=== PATIENT | male | born 1940 | race Caucasian/White ===

== ENCOUNTER → 2017-02-09 | Outpatient (REF) | payer MEDICARE ==
[2017-02-09 18:18] LABS: MEAN CORPUSCULAR HEMOGLOBIN 31.7 pg (27.0-33.0); MEAN CORPUSCULAR HGB CONC 33.8 g/dl (32.0-36.5); MEAN CORPUSCULAR VOLUME 93.8 fl (80.0-96.0); RED CELL DISTRIBUTION WIDTH 12.3 % (11.5-14.5); WHITE BLOOD COUNT 7.4 K/mm3 (4.0-10.0)
[2017-02-09 20:10] LABS: ALBUMIN 4.1 GM/DL (3.2-5.2); ALBUMIN/GLOBULIN RATIO 1.17 (1.00-1.93); ALKALINE PHOSPHATASE 73 U/L (45-117); ALT/SGPT 28 U/L (12-78); ANION GAP 8 MEQ/L (8-16); AST/SGOT 20 U/L (15-37); BLOOD UREA NITROGEN 13 MG/DL (7-18); CALCIUM LEVEL 9.3 MG/DL (8.8-10.2); CARBON DIOXIDE LEVEL 33 MEQ/L (21-32); CHLORIDE LEVEL 96 MEQ/L (98-107); CREATININE FOR GFR 0.98 MG/DL (0.70-1.30); GLOMERULAR FILTRATION RATE > 60.0 (>42); GLUCOSE, FASTING 94 MG/DL (83-110); POTASSIUM SERUM 3.9 MEQ/L (3.5-5.1); SODIUM LEVEL 137 MEQ/L (136-145); TOTAL PROTEIN 7.6 GM/DL (6.4-8.2)
== END ==
LOC: M SFHCCLAY 11:13
PROVIDERS: ATTEND Family Medicine
DX: Z93.2 Ileostomy status (principal); C18.9 Malignant neoplasm of colon, unspecified

== ENCOUNTER → 2018-02-10 | Outpatient (REF) | payer MEDICARE ==
[2018-02-10 19:30] LABS: ALBUMIN/GLOBULIN RATIO 1.25 (1.00-1.93); ALKALINE PHOSPHATASE 71 U/L (45-117); ALT/SGPT 25 U/L (12-78); ANION GAP 10 MEQ/L (8-16); AST/SGOT 22 U/L (7-37); BILIRUBIN,TOTAL 1.3 MG/DL (0.2-1.0); BLOOD UREA NITROGEN 15 MG/DL (7-18); CALCIUM LEVEL 9.7 MG/DL (8.8-10.2); CARBON DIOXIDE LEVEL 31 MEQ/L (21-32); CHLORIDE LEVEL 98 MEQ/L (98-107); CREATININE FOR GFR 1.02 MG/DL (0.70-1.30); GLOMERULAR FILTRATION RATE > 60.0 (>42); GLUCOSE, FASTING 91 MG/DL (70-100); POTASSIUM SERUM 3.9 MEQ/L (3.5-5.1); SODIUM LEVEL 139 MEQ/L (136-145); THYROID STIMULATING HORMONE 0.817 uIU/ML (0.358-3.740); TOTAL PROTEIN 7.2 GM/DL (6.4-8.2)
[2018-02-10 19:46] LABS: HEMATOCRIT 40.5 % (42.0-52.0); HEMOGLOBIN 13.4 g/dl (13.5-17.5); MEAN CORPUSCULAR HGB CONC 33.1 g/dl (32.0-36.5); MEAN CORPUSCULAR VOLUME 93.8 fl (80.0-96.0); PLATELET COUNT, AUTOMATED 218 10^3/uL (150-450); RED BLOOD COUNT 4.32 10^6/uL (4.30-6.10); RED CELL DISTRIBUTION WIDTH 12.2 % (11.5-14.5); WHITE BLOOD COUNT 7.4 10^3/uL (4.0-10.0)
[2018-02-10 21:31] LABS: ALPHA FETOPROTEIN TUMOR QUANT 3.1 NG/ML (<8.1); CARCINOEMBRYONIC ANTIGEN 1.9 NG/ML (<2.5)
[2018-02-12 08:45] LABS: HCG SERUM TUMOR MARKER QUANT < 1 mIU/mL (0-3)
== END ==
LOC: M SFHCCLAY 11:09
DX: Z93.2 Ileostomy status (principal); Z12.5 Encounter for screening for malignant neoplasm of prostate; I10 Essential (primary) hypertension; N50.9 Disorder of male genital organs, unspecified; H91.93 Unspecified hearing loss, bilateral; Z85.038 Personal history of other malignant neoplasm of large intestine; Z23 Encounter for immunization
CPT/HCPCS: 82378

== ENCOUNTER → 2018-02-21 | Outpatient (CLI) | payer MEDICARE ==
[2018-02-21 19:14] LABS: ANION GAP 9 MEQ/L (8-16); BLOOD UREA NITROGEN 16 MG/DL (7-18); CARBON DIOXIDE LEVEL 31 MEQ/L (21-32); CHLORIDE LEVEL 97 MEQ/L (98-107); CREATININE FOR GFR 1.11 MG/DL (0.70-1.30); GLOMERULAR FILTRATION RATE > 60.0 (>42); GLUCOSE, FASTING 104 MG/DL (70-100); LDH LACTATE DEHYDROGENASE 207 U/L (87-241); POTASSIUM SERUM 4.4 MEQ/L (3.5-5.1); SODIUM LEVEL 137 MEQ/L (136-145)
== END ==
LOC: M SMT 14:15
DX: N50.9 Disorder of male genital organs, unspecified (principal)
CPT/HCPCS: 83615

== ENCOUNTER → 2018-02-23 | Outpatient (CLI) | payer MEDICARE ==
[~2018-02-23] MED LIST: GASTROGRAFIN SOLUTION 30ML (Q9963) As Ordered; ISOVUE-370 76% 100ML VIAL (Q9967) As Ordered
== END ==
LOC: M RAD 15:38
DX: N50.9 Disorder of male genital organs, unspecified (principal); I70.0 Atherosclerosis of aorta; Z90.49 Acquired absence of other specified parts of digestive tract; Z93.2 Ileostomy status; R59.0 Localized enlarged lymph nodes
CPT/HCPCS: Q9963

== ENCOUNTER → 2018-02-24 | Outpatient (REF) | payer MEDICARE ==
[2018-02-24 17:13] LABS: HEMOGLOBIN 13.8 g/dl (13.5-17.5); MEAN CORPUSCULAR HEMOGLOBIN 31.7 pg (27.0-33.0); MEAN CORPUSCULAR HGB CONC 34.5 g/dl (32.0-36.5); MEAN CORPUSCULAR VOLUME 91.7 fl (80.0-96.0); PLATELET COUNT, AUTOMATED 231 10^3/uL (150-450); RED BLOOD COUNT 4.36 10^6/uL (4.30-6.10); RED CELL DISTRIBUTION WIDTH 11.9 % (11.5-14.5); WHITE BLOOD COUNT 7.5 10^3/uL (4.0-10.0)
[2018-02-24 17:14] LABS: ANION GAP 6 MEQ/L (8-16); BLOOD UREA NITROGEN 17 MG/DL (7-18); CALCIUM LEVEL 9.5 MG/DL (8.8-10.2); CARBON DIOXIDE LEVEL 35 MEQ/L (21-32); CHLORIDE LEVEL 98 MEQ/L (98-107); CREATININE FOR GFR 1.11 MG/DL (0.70-1.30); GLOMERULAR FILTRATION RATE > 60.0 (>42); GLUCOSE, FASTING 48 MG/DL (70-100); POTASSIUM SERUM 3.9 MEQ/L (3.5-5.1); SODIUM LEVEL 139 MEQ/L (136-145)
[2018-02-24 17:30] LABS: INR 1.04; PROTHROMBIN TIME 13.7 SECONDS (12.1-14.4)
[2018-02-24 17:31] LABS: PARTIAL THROMBOPLASTIN TIME 33.5 SECONDS (25.4-37.6)
== END ==
LOC: M SFHCCLAY 11:13
DX: Z01.818 Encounter for other preprocedural examination (principal); N50.9 Disorder of male genital organs, unspecified

== ENCOUNTER → 2018-02-24 | Outpatient (CLI) | payer MEDICARE | LOC: M CLY 11:22 | DX: Z01.818 Encounter for other preprocedural examination (principal); N50.9 Disorder of male genital organs, unspecified | CPT/HCPCS: 80048 ==

== ENCOUNTER → 2018-02-28 | Outpatient (CLI) | payer MEDICARE | LOC: M CLY 07:45 | DX: Z01.818 Encounter for other preprocedural examination (principal); N50.9 Disorder of male genital organs, unspecified; I10 Essential (primary) hypertension ==

== ENCOUNTER 2018-03-01 13:31 | Day surgery (SDC) | payer MEDICARE ==
[~2018-03-01 13:31] MED LIST changes: -GASTROGRAFIN SOLUTION 30ML (Q9963) As Ordered; -ISOVUE-370 76% 100ML VIAL (Q9967) As Ordered; +LIDOCAINE 1% MDV 20ML VIAL SQ
[2018-03-01] MEDS ORDERED: ceFAZolin 2 GM/D5W 50 ML IV BAG (J0690 PER 500MG) As Ordered (13:48)
[2018-03-01] MEDS ORDERED: LR 1,000 ML IV ×2 (14:15→18:15)
[2018-03-01] MEDS ORDERED: LIDOCAINE 2% INJ 100 MG/5 ML SDV (FOR ANES.) As Ordered (15:53)
[2018-03-01] MEDS ORDERED: METOCLOPRAMIDE INJ 10MG/2ML VIAL (J2765) As Ordered (15:53)
[2018-03-01] MEDS ORDERED: PROPOFOL 200 MG/20 ML VIAL As Ordered (15:53)
[2018-03-01] MEDS ORDERED: ONDANSETRON 4MG/2ML VIAL (J2405) As Ordered (15:53)
[2018-03-01] MEDS ORDERED: fentaNYL 100 MCG/2 ML INJECTION (J3010) As Ordered (15:54)
[2018-03-01] MEDS ORDERED: HYDROmorphone HCL 2 MG/ML 1ML VIAL (J1170) As Ordered (17:28)
[2018-03-01] MEDS: LIDOCAINE 1% SDV INJ 30 ML VIAL As Ordered (17:47)
[2018-03-01] MEDS: BUPIVACAINE HCL 0.25% 30 ML VIAL As Ordered (17:47)
[2018-03-01] MEDS ORDERED: fentaNYL 100 MCG/2 ML INJECTION (J3010) IV (18:15)
[2018-03-01] MEDS ORDERED: NORCO, ANEXSIA 5/325MG TABLET (HYDROcodone/ACETAMINOPHEN) PO (18:15)
[2018-03-01] MEDS ORDERED: ONDANSETRON 4MG/2ML VIAL (J2405) IV (18:15)
[2018-03-01] MEDS ORDERED: MORPHINE 10 MG/ML 1ML VIAL (J2270) IV (18:15)
[2018-03-01] MEDS: PERCOCET 5MG/325MG TAB PO (20:00)
== END 2018-03-01 21:05 | disposition home or self-care (01) ==
LOC: M SDC 13:31
DX: C49.9 Malignant neoplasm of connective and soft tissue, unspecified (principal); I10 Essential (primary) hypertension; Z79.899 Other long term (current) drug therapy; Z85.038 Personal history of other malignant neoplasm of large intestine; Z92.21 Personal history of antineoplastic chemotherapy; Z87.891 Personal history of nicotine dependence
CPT/HCPCS: 54530

== ENCOUNTER → 2018-03-28 | Outpatient (CLI) | payer MEDICARE | LOC: M RAD 13:56 | DX: C62.92 Malignant neoplasm of left testis, unspecified whether descended or undescended (principal); R59.0 Localized enlarged lymph nodes | CPT/HCPCS: 76857 ==

== ENCOUNTER 2018-05-12 12:51 | Inpatient (IN) | payer MEDICARE ==
[~2018-05-12] VITALS: Ht 175.3 cm; Wt 66.2 kg
[~2018-05-12 12:51] MED LIST changes: +AMLO5TAB6 PO; +APAP/CODEINE PO; -LIDOCAINE 1% MDV 20ML VIAL SQ; +TRAM50TA2 PO; +TRIAMT/HCTZ PO
[2018-05-12] MEDS ORDERED: NS 1,000 ML IV SCH (13:18)
[2018-05-12] MEDS ORDERED: NS 1,000 ML IV ONE ×2 (13:30→14:45)
[2018-05-12] MEDS ORDERED: ONDANSETRON 4MG/2ML VIAL (J2405) IV ONE (13:30)
[2018-05-12] MEDS: MORPHINE 2 MG/ML 1ML SYRINGE (J2270) IV PRN ×2 (13:39→16:01)
[2018-05-12 14:13] LABS: BASO % 0.1 % (0.0-1.0); EOS % 0.1 % (0.0-3.0); HEMATOCRIT 33.3 % (42.0-52.0); HEMOGLOBIN 11.4 g/dl (13.5-17.5); LYMPH # 1.2 10^3/uL (1.5-4.5); LYMPH % 7.5 % (24.0-44.0); MEAN CORPUSCULAR HGB CONC 34.2 g/dl (32.0-36.5); MEAN CORPUSCULAR VOLUME 90.5 fl (80.0-96.0); MONO # 0.5 10^3/uL (0.0-0.8); MONO % 3.3 % (0.0-5.0); NEUTROPHILS # 13.8 10^3/uL (1.8-7.7); NEUTROPHILS % 88.5 % (36.0-66.0); PLATELET COUNT, AUTOMATED 343 10^3/uL (150-450); RED BLOOD COUNT 3.68 10^6/uL (4.30-6.10); WHITE BLOOD COUNT 15.6 10^3/uL (4.0-10.0)
[2018-05-12 14:24] LABS: INR 1.13; PARTIAL THROMBOPLASTIN TIME 25.2 SECONDS (25.4-37.6); PROTHROMBIN TIME 14.6 SECONDS (12.1-14.4)
[2018-05-12 14:36] LABS: ALBUMIN 3.2 GM/DL (3.2-5.2); BILIRUBIN,DIRECT 0.2 MG/DL (0.0-0.2); CALCIUM LEVEL 8.4 MG/DL (8.8-10.2); CREATININE FOR GFR 2.32 MG/DL (0.70-1.30); GLOMERULAR FILTRATION RATE 29.1 (>42); MB/CK RELATIVE INDEX 4.62 (< OR =4); POTASSIUM SERUM 3.4 MEQ/L (3.5-5.1); TOTAL PROTEIN 5.9 GM/DL (6.4-8.2); TROPONIN I 0.2 NG/ML (< 0.10)
[2018-05-12] MEDS ORDERED: PIPERACILLIN/TAZOBACTAM SOD 3.375 GM in D5W MINI-BAG PLUS 50 ML IV ONE (15:00)
[2018-05-12] MEDS ORDERED: TRIA37.53 PO (16:05)
[2018-05-12] MEDS ORDERED: ACET1TAB16 PO (16:05)
[2018-05-12] MEDS ORDERED: VITMTA PO (16:06)
--- NOTE | 2018-05-12 16:12 | REP ---
CT ABDOMEN AND PELVIS WITHOUT CONTRAST: CT abdomen and pelvis was performed without oral or IV contrast. Sagittal and coronal reconstruction images are performed. Comparison is made with prior study of 02/23/2018. Mild patchy infiltrates are seen in the visualized lung bases, in both lower lobes. The liver, spleen, adrenals, and pancreas are grossly unremarkable. There is a 2 mm stone in the right renal pelvis. There is a 3 mm stone in the proximal right ureter. There is no hydronephrosis bilaterally. There is a 3 mm stone in the left lower pole collecting system. There is a small cyst of the left kidney laterally. There is a parapelvic cyst in the left kidney measuring about 1.6 cm in diameter. There are moderate atherosclerotic calcifications of the abdominal aorta without aneurysm. No periaortitic adenopathy is seen. A few mildly prominent right inguinal lymph nodes are stable compared to the prior CT. There is no free air or free fluid. Patient has had a prior colectomy. Right ileostomy is again noted. There are significantly dilated small bowel loops proximally throughout the left abdomen with collapsed distal small bowel loops. Findings are consistent with mid small bowel obstruction. Discrete zone of transition is not well visualized. Stomach is also significantly distended and contains a nasogastric tube. Urinary bladder is mildly distended and grossly unremarkable. No pelvic mass is seen. There are degenerative changes of the spine. There also is significant degenerative changes of the hips. IMPRESSION: The patient is status-post total colectomy. There is mid small bowel obstruction with distal small bowel loops collapsed. There is again evidence of right sided ileostomy. No free air or free fluid. Mild patchy infiltrates in the lower lobe of both lungs. Nasogastric tube is seen in the stomach. Electronically Signed by Jose Kelly MD 05/12/2018 08:07 P
[2018-05-12] MEDS ORDERED: ONDANSETRON 4MG/2ML VIAL (J2405) IV PRN (16:15)
[2018-05-12] MEDS: LR 1,000 ML IV SCH (17:00)
[2018-05-12] MEDS: PANTOPRAZOLE 40MG INJ (PROTONIX) (C9113) IV SCH (17:26)
[2018-05-12] MEDS: MORPHINE 4 MG/ML 1ML VIAL/SYRINGE (J2270) IV PRN (18:43)
[2018-05-12 19:48] LABS: BASO % 0.1 % (0.0-1.0); EOS % 0.1 % (0.0-3.0); HEMATOCRIT 31.6 % (42.0-52.0); HEMOGLOBIN 11.4 g/dl (13.5-17.5); LYMPH # 0.9 10^3/uL (1.5-4.5); LYMPH % 12.2 % (24.0-44.0); MEAN CORPUSCULAR HEMOGLOBIN 31.1 pg (27.0-33.0); MEAN CORPUSCULAR HGB CONC 36.1 g/dl (32.0-36.5); MEAN CORPUSCULAR VOLUME 86.3 fl (80.0-96.0); MONO % 13.3 % (0.0-5.0); NEUTROPHILS # 5.7 10^3/uL (1.8-7.7); NEUTROPHILS % 74.2 % (36.0-66.0); PLATELET COUNT, AUTOMATED 286 10^3/uL (150-450); RED BLOOD COUNT 3.66 10^6/uL (4.30-6.10); WHITE BLOOD COUNT 7.7 10^3/uL (4.0-10.0)
--- NOTE | 2018-05-12 19:59 | ECGEPIP ---
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
[2018-05-12 20:00] VITALS: BP 115/56
[2018-05-12 20:08] LABS: CALCIUM LEVEL 7.8 MG/DL (8.8-10.2); CREATININE FOR GFR 2.3 MG/DL (0.70-1.30); GLOMERULAR FILTRATION RATE 29.4 (>42); POTASSIUM SERUM 3.3 MEQ/L (3.5-5.1)
[2018-05-12 20:17] LABS: MB/CK RELATIVE INDEX 3.71 (< OR =4); TROPONIN I 0.2 NG/ML (< 0.10)
[2018-05-12 23:59] VITALS: BP 118/56
[2018-05-13] MEDS: MORPHINE 4 MG/ML 1ML VIAL/SYRINGE (J2270) IV PRN ×3 (00:46→12:17)
[2018-05-13] MEDS: LR 1,000 ML IV SCH ×4 (00:49→21:41)
[2018-05-13 04:00] VITALS: BP 112/56
[2018-05-13 05:16] LABS: HEMATOCRIT 31.2 % (42.0-52.0); MEAN CORPUSCULAR HEMOGLOBIN 30.8 pg (27.0-33.0); MEAN CORPUSCULAR HGB CONC 35.3 g/dl (32.0-36.5); MEAN CORPUSCULAR VOLUME 87.4 fl (80.0-96.0); PLATELET COUNT, AUTOMATED 236 10^3/uL (150-450); RED BLOOD COUNT 3.57 10^6/uL (4.30-6.10); WHITE BLOOD COUNT 3.7 10^3/uL (4.0-10.0)
[2018-05-13 05:38] LABS: CALCIUM LEVEL 7.9 MG/DL (8.8-10.2); CREATININE FOR GFR 2.7 MG/DL (0.70-1.30); GLOMERULAR FILTRATION RATE 24.5 (>42); POTASSIUM SERUM 3.5 MEQ/L (3.5-5.1)
[2018-05-13 05:44] LABS: LYMPHOCYTES 19 % (16-52); MONOCYTES 15 % (0-8); NEUTROPHILS 58 % (35-75)
[2018-05-13 05:45] LABS: PLATELET ESTIMATE NORMAL (NORMAL)
[2018-05-13 06:50] LABS: MB/CK RELATIVE INDEX 2.47 (< OR =4); TROPONIN I 0.16 NG/ML (< 0.10)
[2018-05-13 07:43] VITALS: BP 135/66
[2018-05-13] MEDS: PANTOPRAZOLE 40MG INJ (PROTONIX) (C9113) IV SCH (08:14)
--- NOTE | 2018-05-13 11:16 | HPEPDOC ---
General Surgery H&P Date of Admission May 12, 2018 Attending Physician: SUNNY AVALOS MD History and Physical CHIEF COMPLAINT: Abdominal pain and vomiting HISTORY OF PRESENT ILLNESS: Patient was brought to the emergency room via EMS with complaints of 3-4 day history of lack of ileostomy output, abdominal distention, crampy abdominal pain centered over the left lower abdomen, weakness. Patient has a long-standing ileostomy following surgery for his colorectal cancer.( He denies any adjuvant chemoradiation given to him). He reports prior history of bowel obstruction. He has been hospitalized at least twice which mostly resolved with nonoperative therapy. Last episode was more than a few years ago. He reports for the past 3-4 days he has not had any ileostomy output. Started having abdominal pain and distention and subsequently nausea and vomiting. He tried to wait it out as his previous bowel obstructions have resolved on their own. He took some laxatives with no effect. He has been vomiting overnight and felt weak, hard to stand and maintained balance thus EMS was called and he was brought to the emergency room. In the emergency room his blood pressure has been slightly soft with the lowest recorded being 90's systolic which responded with administration of 2 L of IV fluids. The nasogastric tube was placed and he drained immediately more than 1200 ML's of black-colored fluid. He was subsequently found to have evidence for bowel obstructions as I was called in for management. ALLERGIES: Please see below. HOME MEDICATIONS: Please see below. PAST MEDICAL HISTORY: 1. Hypertension 2. History of rectal cancer status post colectomy with ileostomy 3. Perineal hernia 4. History of lymphoma 5. Chronic pelvic pain 6. Recent diagnosis of para testicular the Leiomyosarcomma PAST SURGICAL HISTORY: 1. Colectomy with ileostomy 2. Left radical orchiectomy. 3. Left eyelid surgery PERSONAL/SOCIAL HISTORY: Patient is a former smoker, quit smoking in 1971. He reports occasional alcoholic drinks usually.. REVIEW OF SYSTEMS: GENERAL: Recent episode of abdominal pain and vomiting as stated in the HPI. No fevers, chills or sick contacts were reported. 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 He informs see that there were considering possibly radiating to the right groin area. HEENT: [Denies blurred vision and double vision. Denies ear symptoms. Denies hoarseness]. NECK: [Denies any neck pain]. CARDIOVASCULAR: [Denies chest pain and palpitations]. MUSCULOSKELETAL: [Denies arthralgias, back pain and thrombophlebitis]. SKIN: [Denies rash]. NEUROLOGIC: [Denies headache, stroke and transient ischemic attack]. PSYCHIATRIC: [Denies anxiety and depression]. ENDOCRINE: [Denies thyroid disease]. HEMATOLOGY/ONCOLOGY: [Denies any bleeding or clotting disorder]. HEART: [Denies any chest pains, palpitations, paroxysmal dyspnea, orthopnea]. PULMONARY: [Denies chronic cough, dyspnea and wheezing]. GASTROINTESTINAL: See HPI. Patient with prior history of colorectal cancer. Reports perineal hernia with chronic pelvic pain. GENITOURINARY: [Denies dysuria, frequency, hematuria and nocturia]. ENDOCRINE: [Denies polydipsia, polyphagia, polyuria, heat or cold intolerance]. INFECTIOUS: [Denies any recent upper respiratory tract infection, UTI, need for use of antibiotics]. NUTRITION: Not much intake for the past 3-4 days, (+) poor oral intake due to ongoing abdominal pain PHYSICAL EXAMINATION: VITAL SIGNS: Please see below. GENERAL APPEARANCE: At the time that I saw the patient the nasogastric tube has been placed. He reports feeling better after nasogastric tube suction. He has so far had more than 2 L, output from his nasogastric tube. Still having some crampy abdominal pain. Mildly uncomfortable. HEENT: Mild pale palpebral conjunctiva. Lips are dry. Nasogastric tube in place draining black thick colored fluid. More than 2 L output from the NG tube since placement. CHEST: [No chest wall abnormalities. Normal respiratory motion/effort]. NECK: [Supple. No thyromegaly. No lymphadenopathies]. LUNGS: [Lung sounds are clear to auscultation bilaterally. No wheezing apprecia nathalie]. HEART: Tachycardic, regular rhythm, no murmurs ABDOMEN: Moderately distended abdomen, tympanitic to percussion. He has a midline incision that is healed without any incisional hernia. He has right lower quadrant ileostomy. There is no ileostomy appliance around it at the time that I saw him there is no output from the ileostomy. Surrounding skin without any irritation. He has a more prominent distention of the left side of his abdomen over the left lower quadrant area. He is tender over her left lower quadrant area mildly without any guarding. This area is also more tympanitic to the rest of the abdomen hypoactive bowel sounds. SKIN: Warm and dry. EXTREMITIES: No edema no deformities. NEUROLOGICAL: Awake, alert, oriented. ANCILLARIES: LABORATORY DATA: Please see below. MICROBIOLOGY: Please see below. IMAGING: CT abdomen and pelvis The patient is status-post total colectomy. There is mid small bowel obstruction with distal small bowel loops collapsed. There is again evidence of right sided ileostomy. No free air or free fluid. Mild patchy infiltrates in the lower lobe of both lungs. Nasogastric tube is seen in the stomach. IMPRESSION AND PLAN: small bowel obstruction secondary to intraabdominal adhesions Acute Renal Failure, probably prerenal from severe dehydration Mild elevation of the troponin without any chest pain Hypertension Imaging the patient is severely dehydrated as the bowel obstruction has been ongoing for at least 3 days. His BUN and creatinine are acutely elevated. His blood pressure is also been soft and friable but has improved with 2 L of IV fluid bolus. I will keep him . at least at 150 ML's an hour of lactated Ringer's and watch his urine output. I would like to check his labs 6 hours after the initial laboratories as this were markedly abnormal. He came in with a lactate of 10. He currently has bowel obstruction with lack of ileostomy output. Even though he has an elevated lactate he does not look toxic appearing this I do not think he has any gut at this time from the obstruction though I will closely monitor him for need for emergent surgery. He so far felt improved after decompressing his stomach more than 2 L from the nasogastric tube. I discussed with him my general treatment for bowel obstruction which includes close monitoring, serial examination and if there are concerns for bowel ischemia or threatened bowel may need emergent surgery. If he has not regained bowel function in 48-72 hours, he will need surgery. If symptoms do not turn around within 24 hours, I also would consider bringing him to surgery. I would like to try and see troponin so overnight. He does not complain of any chest pains. His initial EKG did not show any signs of acute ischemia. We will keep him in the PCU with cardiac monitoring. I will call on the medical service in the morning for help with managing him. We may need to call urology if his kidney function does not improve or show signs of ATN. Have answered his questions and concerns. He is in agreement with our plan of therapy. Vital Signs Vital Signs Date Time Temp Pulse Resp B/P (MAP) Pulse Ox O2 Delivery O2 Flow Rate FiO2 05/13/18 08:25 20 05/13/18 07:43 99.3 114 135/66 (89) 90 05/13/18 04:00 Room Air I&Os I&O- Last 24 Hours up to 6 AM 05/13/18 05:59 Intake Total 4003 ml Output Total 2700 ml Balance 1303 ml Laboratory Data Labs 24H Laboratory Tests 2 05/12/18 14:01: Immature Granulocyte % (Auto) 0.5, White Blood Count 15.6H, Red Blood Count 3.68L, Hemoglobin 11.4L, Hematocrit 33.3L, Mean Corpuscular Volume 90.5, Mean Corpuscular Hemoglobin 31.0, Mean Corpuscular Hemoglobin Concent 34.2, Red Cell Distribution Width 12.9, Platelet Count 343, Neutrophils (%) (Auto) 88.5H, Lymphocytes (%) (Auto) 7.5L, Monocytes (%) (Auto) 3.3, Eosinophils (%) (Auto) 0.1, Basophils (%) (Auto) 0.1, Neutrophils # (Auto) 13.8H, Lymphocytes # (Auto) 1.2L, Monocytes # (Auto) 0.5, Eosinophils # (Auto) 0.0, Basophils # (Auto) 0.0, Nucleated Red Blood Cells % (auto) 0.0, Prothrombin Time 14.6H, Prothromb Time International Ratio 1.13, Activated Partial Thromboplast Time 25.2L, Anion Gap 1 9H, Glomerular Filtration Rate 29.1L, Lactic Acid Level 10.7*H, Calcium Level 8.4L, Aspartate Amino Transf (AST/SGOT) 22, Alanine Aminotransferase (ALT/SGPT) 27, Alkaline Phosphatase 56, Total Bilirubin 1.0, Direct Bilirubin 0.2, Total Creatine Kinase 117, Creatine Kinase MB 5.0H, Creatine Kinase MB Relative Index 4.62H, Troponin I 0.20H, Total Protein 5.9L, Albumin 3.2, Albumin/Globulin Ratio 1.19, Lipase 61L 05/12/18 18:21: Lactic Acid Followup at 4 Hours 3.9*H 05/12/18 19:41: Immature Granulocyte % (Auto) 0.1, White Blood Count 7.7, Red Blood Count 3.66L, Hemoglobin 11.4L, Hematocrit 31.6L, Mean Corpuscular Volume 86.3, Mean Corpuscular Hemoglobin 31.1, Mean Corpuscular Hemoglobin Concent 36.1, Red Cell Distribution Width 12.9, Platelet Count 286, Neutrophils (%) (Auto) 74.2H, Lymphocytes (%) (Auto) 12.2L, Monocytes (%) (Auto) 13.3H, Eosinophils (%) (Auto) 0.1, Basophils (%) (Auto) 0.1, Neutrophils # (Auto) 5.7, Lymphocytes # (Auto) 0.9L, Monocytes # (Auto) 1.0H, Eosinophils # (Auto) 0.0, Basophils # (Auto) 0.0, Nucleated Red Blood Cells % (auto) 0.0, Anion Gap 12, Glomerular Filtration Rate 29.4L, Calcium Level 7.8L, Total Creatine Kinase 170, Creatine Kinase MB 6.0H, Creatine Kinase MB Relative Index 3.71, Troponin I 0.20H, Blood Urea Nitrogen 97H, Creatinine 2.30H, Sodium Level 136, Potassium Level 3.3L, Chloride Level 91L, Carbon Dioxide Level 33H 05/13/18 04:30: Nucleated Red Blood Cells % (auto) 0.0, Anion Gap 13, Glomerular Filtration Rate 24.5L, Calcium Level 7.9L, Total Creatine Kinase 166, Creatine Kinase MB 4.0H, Creatine Kinase MB Relative Index 2.47, Troponin I 0.16H, Blood Urea Nitrogen 93H, Creatinine 2.70H, Sodium Level 137, Potassium Level 3.5, Chloride Level 91L, Carbon Dioxide Level 33H, Neutrophils 58, Band Neutrophils 8, Lymphocytes (Manual) 19, Monocytes (Manual) 15H, Platelet Estimate NORMAL, Basophilic Stippling 1+ CBC/BMP Laboratory Tests 05/12/18 14:01 Red Blood Count 3.68 L, Mean Corpuscular Volume 90.5, Mean Corpuscular Hemoglobin 31.0, Mean Corpuscular Hemoglobin Concent 34.2, Red Cell Distribution Width 12.9, Neutrophils (%) (Auto) 88.5 H, Lymphocytes (%) (Auto) 7.5 L, Monocytes (%) (Auto) 3.3, Eosinophils (%) (Auto) 0.1, Basophils (%) (Auto) 0.1, Neutrophils # (Auto) 13.8 H, Lymphocytes # (Auto) 1.2 L, Monocytes # (Auto) 0.5, Eosinophils # (Auto) 0.0, Basophils # (Auto) 0.0 05/12/18 19:41 Red Blood Count 3.66 L, Mean Corpuscular Volume 86.3, Mean Corpuscular Hemoglobin 31.1, Mean Corpuscular Hemoglobin Concent 36.1, Red Cell Distribution Width 12.9, Neutrophils (%) (Auto) 74.2 H, Lymphocytes (%) (Auto) 12.2 L, Mon ocytes (%) (Auto) 13.3 H, Eosinophils (%) (Auto) 0.1, Basophils (%) (Auto) 0.1, Neutrophils # (Auto) 5.7, Lymphocytes # (Auto) 0.9 L, Monocytes # (Auto) 1.0 H, Eosinophils # (Auto) 0.0, Basophils # (Auto) 0.0, Calcium Level 7.8 L 05/13/18 04:30 Red Blood Count 3.57 L, Mean Corpuscular Volume 87.4, Mean Corpuscular Hemoglobin 30.8, Mean Corpuscular Hemoglobin Concent 35.3, Red Cell Distribution Width 12.8, Calcium Level 7.9 L, Total Creatine Kinase 166 Microbiology Microbiology 05/12/18 Blood Culture, Received Pending 05/12/18 Blood Culture, Received Pending Home Medications Scheduled Amlodipine Besylate (Amlodipine Besylate) 5 Mg Tab, 5 MG PO DAILY, (Reported) Hydrochlorothiazide W/Triamter (Triamterene/Hydrochloroth 37.5-25 mg) 1 Cap Cap, 1 CAP PO DAILY, (Reported) Multivitamins *[facility] STOCKED* (Thera M Plus *[facility] STOCKED*) 1 Tab Tab, 1 TAB PO DAILY, (Reported) Scheduled PRN Acetaminophen/Codeine (Acetaminophen/Codeine 300-30 mg) 1 Tab Tab, 2 TAB PO Q6H PRN for PAIN, (Reported) Tramadol HCl (Tramadol HCl) 50 Mg Tab, 50 MG PO BID PRN for PAIN, (Reported) Allergies Coded Allergies: No Known Allergies (Unverified , 02/27/18) SUNNY AVALOS MD May 13, 2018 10:48
--- NOTE | 2018-05-13 11:21 | IPNPDOC ---
Subjective General Date/Time Seen The patient was seen on 05/13/18 at 11:16. Subject Chief Complaint/History The patient is a 78-year-old male admitted with a reason for visit of Small Bowl Obstruction. Patient reports feeling improved though still has some residual left-sided abdominal pain. He put out an additional 1400 ML's on his NG tube overnight. Still no ileostomy output. Current Medications Current Medications Current Medications Home Med (Med Rec Complete!) ASDIRECTED XX ; Start 05/12/18 at 16:15; Stop 05/12/18 at 16:15; Status DC Lactated Ringer's 1,000 ml @ 150 mls/hr Q6H40M IV Last administered on 05/13/18at 07:52; Start 05/12/18 at 17:00 Morphine Sulfate (Morphine Sulfate Inj) 2 mg Q15M PRN IV MODERATE/SEVERE PAIN (PS 5-10) Last administered on 05/12/18at 16:01; Start 05/12/18 at 13:30; Stop 05/12/18 at 16:01; Status DC Morphine Sulfate (Morphine Sulfate Inj) 4 mg Q2HP PRN IV SEVERE PAIN (PS 8-10) Last administered on 05/13/18at 08:15; Start 05/12/18 at 16:15 Ondansetron HCl (ZOFRAN INJection) 4 mg Q6HP PRN IV NAUSEA OR VOMITING; Start 05/12/18 at 16:15 Pantoprazole Sodium (Protonix) 40 mg DAILY IV Last administered on 05/13/18at 08:14; Start 05/12/18 at 09:00 Sodium Chloride 1,000 ml @ 100 mls/hr Q10H IV ; Start 05/12/18 at 13:18; Stop 05/12/18 at 16:11; Status DC Allergies Coded Allergies: No Known Allergies (Unverified , 02/27/18) Objective Physical Examination Examination GENERAL APPEARANCE: Relatively comfortable. SKIN: Warm and dry. HEENT: Lips are dry. Nasogastric tube in place still draining black colored fluid. NECK: Supple, no thyromegaly. No obvious jugular venous distention. LUNGS: Clear to auscultation bilaterally. No wheezing appreciated. HEART: Tachycardic, regular rhythm, no murmurs. ABDOMEN: Abdomen is less distended though the left side still appears more prominent than the right. His right-sided ileostomy still has now I'll put, soft, tympanitic to percussion. Mild tenderness over the left side of the abdo men without guarding. EXTREMITIES: No edema. Vital Signs Vital Signs Date Time Temp Pulse Resp B/P (MAP) Pulse Ox O2 Delivery O2 Flow Rate FiO2 05/13/18 08:25 20 05/13/18 07:43 99.3 114 135/66 (89) 90 05/13/18 04:00 Room Air I&Os I&O- Last 24 Hours up to 6 AM 05/13/18 06:00 Intake Total 4423 ml Output Total 2750 ml Balance 1673 ml Laboratory Data Labs 24H Laboratory Tests 2 05/12/18 14:01: Immature Granulocyte % (Auto) 0.5, White Blood Count 15.6H, Red Blood Count 3.68L, Hemoglobin 11.4L, Hematocrit 33.3L, Mean Corpuscular Volume 90.5, Mean Corpuscular Hemoglobin 31.0, Mean Corpuscular Hemoglobin Concent 34.2, Red Cell Distribution Width 12.9, Platelet Count 343, Neutrophils (%) (Auto) 88.5H, Lymphocytes (%) (Auto) 7.5L, Monocytes (%) (Auto) 3.3, Eosinophils (%) (Auto) 0.1, Basophils (%) (Auto) 0.1, Neutrophils # (Auto) 13.8H, Lymphocytes # (Auto) 1.2L, Monocytes # (Auto) 0.5, Eosinophils # (Auto) 0.0, Basophils # (Auto) 0.0, Nucleated Red Blood Cells % (auto) 0.0, Prothrombin Time 14.6H, Prothromb Time International Ratio 1.13, Activated Partial Thromboplast Time 25.2L, Anion Gap 19H, Glomerular Filtration Rate 29.1L, Lactic Acid Level 10.7*H, Calcium Level 8.4L, Aspartate Amino Transf (AST/SGOT) 22, Alanine Aminotransferase (ALT/SGPT) 27, Alkaline Phosphatase 56, Total Bilirubin 1.0, Direct Bilirubin 0.2, Total Creatine Kinase 117, Creatine Kinase MB 5.0H, Creatine Kinase MB Relative Index 4.62H, Troponin I 0.20H, Total Protein 5.9L, Albumin 3.2, Albumin/Globulin Ratio 1.19, Lipase 61L 05/12/18 18:21: Lactic Acid Followup at 4 Hours 3.9*H 05/12/18 19:41: Immature Granulocyte % (Auto) 0.1, White Blood Count 7.7, Red Blood Count 3.66L, Hemoglobin 11.4L, Hematocrit 31.6L, Mean Corpuscular Volume 86.3, Mean Corpuscular Hemoglobin 31.1, Mean Corpuscular Hemoglobin Concent 36.1, Red Cell Distribution Width 12.9, Platelet Count 286, Neutrophils (%) (Auto) 74.2H, Lymphocytes (%) (Auto) 12.2L, Monocytes (%) (Auto) 13.3H, Eosinophils (%) (Auto) 0.1, Basophils (%) (Auto) 0.1, Neutrophils # (Auto) 5.7, Lymphocytes # (Auto) 0.9L, Monocytes # (Auto) 1.0H, Eosinophils # (Auto) 0.0, Basophils # (Auto) 0.0, Nucleated Red Blood Cells % (auto) 0.0, Anion Gap 12, Glomerular Filtration Rate 29.4L, Calcium Level 7.8L, Total Creatine Kinase 170, Creatine Kinase MB 6.0H, Creatine Kinase MB Relative Index 3.71, Troponin I 0.20H, Blood Urea Nitrogen 97H, Creatinine 2.30H, Sodium Level 136, Potassium Level 3.3L, Chloride Level 91L, Carbon Dioxide Level 33H 05/13/18 04:30: Nucleated Red Blood Cells % (auto) 0.0, Anion Gap 13, Glomerular Filtration Rate 24.5L, Calcium Level 7.9L, Total Creatine Kinase 166, Creatine Kinase MB 4.0H, Creatine Kinase MB Relative Index 2.47, Troponin I 0.16H, Blood Urea Nitrogen 93H, Creatinine 2.70H, Sodium Level 137, Potassium Level 3.5, Chloride Level 91L, Carbon Dioxide Level 33H, Neutrophils 58, Band Neutrophils 8, Lymphocytes (Manual) 19, Monocytes (Manual) 15H, Platelet Estimate NORMAL, Basophilic Stippling 1+ CBC/BMP Laboratory Tests 05/12/18 14:01 Red Blood Count 3.68 L, Mean Corpuscular Volume 90.5, Mean Corpuscular Hemoglobin 31.0, Mean Corpuscular Hemoglobin Concent 34.2, Red Cell Distribution Width 12.9, Neutrophils (%) (Auto) 88.5 H, Lymphocytes (%) (Auto) 7.5 L, Monocytes (%) (Auto) 3.3, Eosinophils (%) (Auto) 0.1, Basophils (%) (Auto) 0.1, Neutrophils # (Auto) 13.8 H, Lymphocytes # (Auto) 1.2 L, Monocytes # (Auto) 0.5, Eosinophils # (Auto) 0.0, Basophils # (Auto) 0.0 05/12/18 19:41 Red Blood Count 3.66 L, Mean Corpuscular Volume 86.3, Mean Corpuscular Hemoglobin 31.1, Mean Corpuscular Hemoglobin Concent 36.1, Red Cell Distribution Width 12.9, Neutrophils (%) (Auto) 74.2 H, Lymphocytes (%) (Auto) 12.2 L, Monocytes (%) (Auto) 13.3 H, Eosinophils (%) (Auto) 0.1, Basophils (%) (Auto) 0.1, Neutrophils # (Auto) 5.7, Lymphocytes # (Auto) 0.9 L, Monocytes # (Auto) 1.0 H, Eosinophils # (Auto) 0.0, Basophils # (Auto) 0.0, Calcium Level 7.8 L 05/13/18 04:30 Red Blood Count 3.57 L, Mean Corpuscular Volume 87.4, Mean Corpuscular Hemoglobin 30.8, Mean Corpuscular Hemoglobin Concent 35.3, Red Cell Distribution Width 12.8, Calcium Level 7.9 L, Total Creatine Kinase 166 Microbiology Microbiology 05/12/18 Blood Culture, Received Pending 05/12/18 Blood Culture, Received Pending Impression Small bowel obstruction Ileostomy status following colon resection Acute renal failure I have ordered a Little catheter placed for closer monitoring of his urine output as his BUN and creatinine continues to be highly elevated with the BUN 93 and creatinine 2.7. He is making urine and this appears not to concentrated. He is still on 150 ML's an hour of lactated Ringer's. His initial lactic acid has dropped on 24-hour follow up to 3.9. His troponins overnight has trended down from 0.2-0.16. He is not complaining of any chest pains or shortness of breath. At this point: Cold for today is to closely monitor his urine output. I will ask the medical service to come help assist with the management he may need to call nephrology. I will leave this up to the medical service. He may have ATN and not just prerenal ARF. With regards to his bowel obstruction, I told him that if he has not shown any signs of bowel function within the next 24 hours, I will bring him to the OR for abdominal exploration. Plan / VTE VTE Prophylaxis Ordered?: Yes Plan / Urinary Catheter Reason for insertion/continuin: Critical Pt monitoring SUNNY AVALOS MD May 13, 2018 11:21
[2018-05-13 11:56] VITALS: BP 132/71
[2018-05-13] MEDS: amLODIPine 5 MG TAB PO SCH (12:17)
[2018-05-13] MEDS: HEPARIN SOD (PORCINE) 5000 UNITS/ML VIAL SQ SCH ×2 (12:17→21:39)
[2018-05-13 13:08] LABS: APPEARANCE, URINE CLOUDY (CLEAR); BACTERIA, URINE AUTO 1+ (NEGATIVE); BILIRUBIN, URINE AUTO NEGATIVE (NEGATIVE); BLOOD, URINE BLOOD 3+ (NEGATIVE); COLOR, URINE RED (YELLOW); GLUCOSE, URINE (UA) AUTO NEGATIVE (NEGATIVE); KETONE, URINE AUTO NEGATIVE (NEGATIVE); LEUKOCYTE ESTERASE, URINE AUTO NEGATIVE (NEGATIVE); MUCUS, URINE SMALL (NEGATIVE); NITRITE, URINE AUTO NEGATIVE (NEGATIVE); PROTEIN, URINE AUTO 3+ mg/dL (NEGATIVE); RBC, URINE AUTO TNTC /HPF (0-3); SPECIFIC GRAVITY URINE AUTO 1.015 (1.002-1.035); SQUAMOUS EPITHELIAL CELL UR AU 1 /HPF (0-6); UROBILINOGEN, URINE AUTO 0.2 mg/dL (0.0-2.0); WBC, URINE AUTO 1 /HPF (0-3)
[2018-05-13 13:26] LABS: SODIUM,RANDOM URINE 17 MEQ/L
[2018-05-13 13:28] LABS: OSMOLALITY URINE 488 MOSM/KG (500-800)
[2018-05-13 15:38] VITALS: BP 133/76
--- NOTE | 2018-05-13 15:58 | IPNPDOC ---
Subjective Date Seen The patient was seen on 05/13/18. Subjective Chief Complaint/HPI He has an NG tube in that is draining dark black to dark green material from his stomach. He generally is feeling uncomfortable from his abdomen. He denies any other specific complaints. General: Denies: Normal Appetite Constitutional: Denies: Chills, Fever Skin: Denies: Jaundice, Itching Pulmonary: Reports: Dyspnea, Cough Cardiovascular: Denies: Chest Pain, Palpitations Genitourinary: Denies: Dysuria Objective Physical Examination General Exam: Positive: Alert, Cooperative (however, he is clearly in some discomfort from his abdomen) Eye Exam: Positive: Conjunctiva & lids normal; Negative: Sclera icteric ENT Exam: Negative: Other ENT (his mucous membranes are still moderately dry) Neck Exam: Negative: JVD, Lymphadenopathy Chest Exam: Positive: Clear to auscultation, Normal air movement Heart Exam: Positive: Rate Normal, Normal S1, Normal S2; Negative: Murmurs Abdomen Exam: Positive: BS Hypoactive (only 1-2 mid-pitched noises were noted with over a minute of listening), Tenderness (diffusely), Other (No rebound tenderness) Extremity Exam: Negative: Edema Psych Exam: Positive: Oriented x 3 Assessment /Plan Problems (1) SBO (small bowel obstruction) Status: Acute Response to Treatment: Improving Discussed With: Nurse, Cash Register Mechanic, Patient, Family with Pt Consent Problem Specific Plan: Monitor Clinically Problem Text: This problem is being managed by Dr. Ontiveros of surgery. He seems to be making some improvement with the NG drainage, but is still pretty uncomfortable. Will defer to surgery for further management of this problem. (2) Acute kidney injury Status: Acute Response to Treatment: Worse Discussed With: Nurse, Cash Register Mechanic, Patient, Family with Pt Consent Problem Specific Plan: Repeat Labs Problem Text: His BUN is down a little, but his creatinine is up. Overall his GFR is down a little more today. Will continue the IV hydration and monitor. I believe that he was significantly dehydrated by the time he was admitted. (3) Cough Status: Acute Discussed With: Patient, Family with Pt Consent Problem Specific Plan: Monitor Clinically, Repeat Tests Problem Text: His daughter has some concerns about a cough that is productive of scant sputum/mucus. I did not observe this, my exam is relatively benign, and his WBC are lower today. None, the less he is at high risk for a pneumonia as his distended abdomen may make it harder for him to take a truly deep breath and he is in bed most of the time. I decided to order a CXR today to clarify the need for further abx (he got one dose in the ER, but they were not continued on admission). (4) Hypertension Status: Chronic Response to Treatment: Stable Problem Specific Plan: Monitor Clinically Problem Text: His BP is well controlled at this time. Continue current regimen. Plan/VTE VTE Prophylaxis Ordered?: Yes Plan/Urinary Catheter Reason for insertion/continuin: Critical Pt monitoring VS, I&O, 24H, Fishbone Vital Signs/I&O Vital Signs Date Time Temp Pulse Resp B/P (MAP) Pulse Ox O2 Delivery O2 Flow Rate FiO2 05/13/18 15:38 98.5 109 18 133/76 (95) 95 05/13/18 11:56 Room Air I&O- Last 24 Hours up to 6 AM 05/13/18 06:00 Intake Total 4423 ml Output Total 2750 ml Balance 1673 ml Laboratory Data 24H LABS Laboratory Tests 2 05/12/18 18:21: Lactic Acid Followup at 4 Hours 3.9*H 05/12/18 19:41: Immature Granulocyte % (Auto) 0.1, White Blood Count 7.7, Red Blood Count 3.66L, Hemoglobin 11.4L, Hematocrit 31.6L, Mean Corpuscular Volume 86.3, Mean Corpuscular Hemoglobin 31.1, Mean Corpuscular Hemoglobin Concent 36.1, Red Cell Distribution Width 12.9, Platelet Count 286, Neutrophils (%) (Auto) 74.2H, Lymphocytes (%) (Auto) 12.2L, Monocytes (%) (Auto) 13.3H, Eosinophils (%) (Auto) 0.1, Basophils (%) (Auto) 0.1, Neutrophils # (Auto) 5.7, Lymphocytes # (Auto) 0.9L, Monocytes # (Auto) 1.0H, Eosinophils # (Auto) 0.0, Basophils # (Auto) 0.0, Nucleated Red Blood Cells % (auto) 0.0, Anion Gap 12, Glomerular Filtration Rate 29.4L, Blood Urea Nitrogen 97H, Creatinine 2.30H, Sodium Level 136, Potassium Level 3.3L, Chloride Level 91L, Carbon Dioxide Level 33H, Calcium Level 7.8L, Total Creatine Kinase 170, Creatine Kinase MB 6.0H, Creatine Kinase MB Relative Index 3.71, Troponin I 0.20H 05/13/18 04:30: Nucleated Red Blood Cells % (auto) 0.0, Anion Gap 13, Glomerular Filtration Rate 24.5L, Blood Urea Nitrogen 93H, Creatinine 2.70H, Sodium Level 137, Potassium Level 3.5, Chloride Level 91L, Carbon Dioxide Level 33H, Calcium Level 7.9L, Total Creatine Kinase 166, Creatine Kinase MB 4.0H, Creatine Kinase MB Relative Index 2.47, Troponin I 0.16H, Neutrophils 58, Band Neutrophils 8, Lymphocytes ( Manual) 19, Monocytes (Manual) 15H, Platelet Estimate NORMAL, Basophilic Stippling 1+ 05/13/18 12:48: Urine Appearance CLOUDYH, Urine Color REDH, Urine pH 5.0, Urine Specific [place] 1.015, Urine Protein 3+H, Urine Glucose (UA) NEGATIVE, Urine Ketones NEGATIVE, Urine Urobilinogen 0.2, Urine Bilirubin NEGATIVE, Urine Leukocyte Esterase NEGATIVE, Urine Blood 3+H, Urine Nitrite NEGATIVE, Urine WBC (Auto) 1, Urine RBC (Auto) TNTCH, Urine Hyaline Casts (Auto) 0, Urine Bacteria (Auto) 1+H, Urine Squamous Epithelial Cells 1, Urine Mucus (Auto) SMALL, Urine Sperm (Auto) , Urine Random Osmolality 488L, Urine Random Sodium 17 CBC/BMP Laboratory Tests 05/12/18 19:41 Red Blood Count 3.66 L, Mean Corpuscular Volume 86.3, Mean Corpuscular Hemoglobin 31.1, Mean Corpuscular Hemoglobin Concent 36.1, Red Cell Distribution Width 12.9, Neutrophils (%) (Auto) 74.2 H, Lymphocytes (%) (Auto) 12.2 L, Monocytes (%) (Auto) 13.3 H, Eosinophils (%) (Auto) 0.1, Basophils (%) (Auto) 0.1, Neutrophils # (Auto) 5.7, Lymphocytes # (Auto) 0.9 L, Monocytes # (Auto) 1.0 H, Eosinophils # (Auto) 0.0, Basophils # (Auto) 0.0, Calcium Level 7.8 L 05/13/18 04:30 Red Blood Count 3.57 L, Mean Corpuscular Volume 87.4, Mean Corpuscular Hemoglobin 30.8, Mean Corpuscular Hemoglobin Concent 35.3, Red Cell Distribution Width 12.8, Calcium Level 7.9 L, Total Creatine Kinase 166 Microbiology Microbiology 05/12/18 Blood Culture - Preliminary, Resulted No growth after 24 hours . All specim... 05/12/18 Blood Culture - Preliminary, Resulted No growth after 24 hours . All specim... Andriy Leslie MD May 13, 2018 15:57
[2018-05-13 20:00] VITALS: BP 139/71
[2018-05-13 23:59] VITALS: BP 137/66
[2018-05-14] VITALS (8 sets, daily range): BP systolic 125–144; BP diastolic 54–69
[2018-05-14] MEDS: MORPHINE 4 MG/ML 1ML VIAL/SYRINGE (J2270) IV PRN (02:02)
[2018-05-14 04:57] LABS: HEMATOCRIT 28.3 % (42.0-52.0); HEMOGLOBIN 9.7 g/dl (13.5-17.5); MEAN CORPUSCULAR HEMOGLOBIN 30.9 pg (27.0-33.0); MEAN CORPUSCULAR HGB CONC 34.3 g/dl (32.0-36.5); MEAN CORPUSCULAR VOLUME 90.1 fl (80.0-96.0); PLATELET COUNT, AUTOMATED 184 10^3/uL (150-450); RED BLOOD COUNT 3.14 10^6/uL (4.30-6.10)
[2018-05-14] MEDS: LR 1,000 ML IV SCH (05:03)
[2018-05-14 05:18] LABS: CALCIUM LEVEL 7.9 MG/DL (8.8-10.2); CREATININE FOR GFR 1.4 MG/DL (0.70-1.30); GLOMERULAR FILTRATION RATE 52.2 (>42); POTASSIUM SERUM 2.5 MEQ/L (3.5-5.1)
[2018-05-14 05:30] LABS: EOSINOPHILS 1 % (0-5); LYMPHOCYTES 17 % (16-52); MONOCYTES 4 % (0-8); NEUTROPHILS 71 % (35-75)
[2018-05-14 05:31] LABS: DOHLE BODIES 1+; PLATELET ESTIMATE NORMAL (NORMAL)
[2018-05-14] MEDS: KCL 40MEQ IN D5/0.45NS 1000ML 1,000 ML IV SCH (06:38)
[2018-05-14] MEDS: KCL 10MEQ/100ML SWI (KRUN) 10 MEQ in APPROPRIATE DILUENT 1 EA IV SCH ×6 (06:39→21:01)
[2018-05-14] MEDS: PANTOPRAZOLE 40MG INJ (PROTONIX) (C9113) IV SCH (09:00)
[2018-05-14] MEDS: amLODIPine 5 MG TAB PO SCH (09:01)
--- NOTE | 2018-05-14 09:52 | IPNPDOC ---
Subjective General Date/Time Seen The patient was seen on 05/14/18 at 09:47. Subject Chief Complaint/History The patient is a 78-year-old male admitted with a reason for visit of Small Bowl Obstruction. Patient has significantly decompressed for the past 24 hours. He drained more than 4 L from his nasogastric tube yesterday. He reports no further crampy abdominal pain. He starting to have output from his ileostomy including gas. He also has started to put up a good amount of urine. His potassium due to the amount of nasogastric tube drainage has significantly come down to 2.5. Current Medications Current Medications Current Medications Amlodipine Besylate (Norvasc) 5 mg DAILY PO Last administered on 05/14/18at 09:01; Start 05/13/18 at 09:00 Heparin Sodium (Porcine) (Heparin) 5,000 units Q12H SQ Last administered on 05/13/18at 21:39; Start 05/13/18 at 09:00 Home Med (Med Rec Complete!) ASDIRECTED XX ; Start 05/12/18 at 16:15; Stop 05/12/18 at 16:15; Status DC Lactated Ringer's 1,000 ml @ 150 mls/hr Q6H40M IV Last administered on 05/14/18at 05:03; Start 05/12/18 at 17:00; Stop 05/14/18 at 09:41; Status DC Morphine Sulfate (Morphine Sulfate Inj) 2 mg Q15M PRN IV MODERATE/SEVERE PAIN (PS 5-10) Last administered on 05/12/18at 16:01; Start 05/12/18 at 13:30; Stop 05/12/18 at 16:01; Status DC Morphine Sulfate (Morphine Sulfate Inj) 4 mg Q2HP PRN IV SEVERE PAIN (PS 8-10) Last administered on 05/14/18at 02:02; Start 05/12/18 at 16:15 Ondansetron HCl (ZOFRAN INJection) 4 mg Q6HP PRN IV NAUSEA OR VOMITING; Start 05/12/18 at 16:15 Pantoprazole Sodium (Protonix) 40 mg DAILY IV Last administered on 05/14/18at 09:00; Start 05/12/18 at 09:00 Potassium Chloride 10 meq/ IV Miscellaneous Supplies 100 ml @ 100 mls/hr 0630,0730,0830 IV Last administered on 05/14/18at 09:01; Start 05/14/18 at 06:30; Stop 05/14/18 at 12:00 Potassium Chloride/Dextrose/ Sod Cl 1,000 ml @ 100 mls/hr Q10H IV Last administered on 05/14/18at 06:38; Start 05/14/18 at 06:15 Sodium Chloride 1,000 ml @ 100 mls/hr Q10H IV ; Start 05/12/18 at 13:18; Stop 05/12/18 at 16:11; Status DC Allergies Coded Allergies: No Known Allergies (Unverified , 02/27/18) Objective Physical Examination Examination GENERAL APPEARANCE: More comfortable. SKIN: Warm and dry. HEENT: Lips are dry. Nasogastric tube putting out a more greenish output. Then the black output he had the 2 days prior. NECK: No jugular venous distention. LUNGS: Clear to auscultation bilaterally. No wheezing appreciated. HEART: No longer tachycardic, regular rhythm, no murmurs. ABDOMEN: Abdomen is still mildly distended with some more prominent distention over the left side than the right, hypoactive bowel sounds, soft, ileostomy over the right lower quadrant with small amount of brown stool and a lot of gas. Nontender on palpation. EXTREMITIES: No edema. Vital Signs Vital Signs Date Time Temp Pulse Resp B/P (MAP) Pulse Ox O2 Delivery O2 Flow Rate FiO2 05/14/18 09:01 91 128/62 05/14/18 07:57 98.5 20 91 Room Air I&Os I&O- Last 24 Hours up to 6 AM 05/14/18 06:00 Intake Total 4260 ml Output Total 7750 ml Balance -3490 ml NG tube 4100 ML's yesterday, 1400 ML's overnight Laboratory Data Labs 24H Laboratory Tests 2 05/13/18 12:48: Urine Appearance CLOUDYH, Urine Color REDH, Urine pH 5.0, Urine Specific [place] 1.015, Urine Protein 3+H, Urine Glucose (UA) NEGATIVE, Urine Ketones NEGATIVE, Urine Urobilinogen 0.2, Urine Bilirubin NEGATIVE, Urine Leukocyte Esterase NEGATIVE, Urine Blood 3+H, Urine Nitrite NEGATIVE, Urine WBC (Auto) 1, Urine RBC (Auto) TNTCH, Urine Hyaline Casts (Auto) 0, Urine Bacteria (Auto) 1+H, Urine Squamous Epithelial Cells 1, Urine Mucus (Auto) SMALL, Urine Sperm (Auto) , Urine Random Osmolality 488L, Urine Random Sodium 17 CBC/BMP Laboratory Tests 05/14/18 04:28 Red Blood Count 3.14 L, Mean Corpuscular Volume 90.1, Mean Corpuscular Hemoglobin 30.9, Mean Corpuscular Hemoglobin Concent 34.3, Red Cell Distribution Width 12.9, Calcium Level 7.9 L Microbiology Microbiology 05/12/18 Blood Culture - Preliminary, Resulted No growth after 24 hours . All specim... 05/12/18 Blood Culture - Preliminary, Resulted No growth after 24 hours . All specim... Impression Small bowel obstruction probably secondary to adhesions Ileostomy status status post colon resection for rectal cancer Acute renal failure improving Hypokalemia We'll replace potassium and recheck. I'll also check for magnesium. I will region schedule him for surgery today. Given that he has started to put out some output from his ileostomy, I will hold off and continued to serially monitor him. He may still need surgery if this does not fully resolve. His BUN and creatinine is starting to come down and he starting to make sufficient amount of urine. Advised the patient to ambulate to hallways. Plan / VTE VTE Prophylaxis Ordered?: Yes Plan / Urinary Catheter Reason for insertion/continuin: Critical Pt monitoring SUNNY AVALOS MD May 14, 2018 09:52
[2018-05-14] MEDS: HEPARIN SOD (PORCINE) 5000 UNITS/ML VIAL SQ SCH ×2 (10:10→20:59)
[2018-05-14 10:28] LABS: MAGNESIUM LEVEL 1.7 MG/DL (1.8-2.4)
--- NOTE | 2018-05-14 11:11 | IPNPDOC ---
Subjective Date Seen The patient was seen on 05/14/18. Subjective Chief Complaint/HPI Mr. Stanley reportedly put out ~4L from his NGT yesterday. He states he is feeling pretty good and has no acute complaints. He is happy that Dr. Ontiveros feels that things may be starting to point away from a surgery if possible. His daughter reports that he continues to occasionally cough up a greenish sputum. She wonders if he should be on an abx at this time. Constitutional: Denies: Chills, Fever Pulmonary: Reports: Cough (with some greenish sputum production per his duaghter. ); Denies: Dyspnea Cardiovascular: Denies: Chest Pain, Palpitations Gastrointestinal: Reports: Abdominal Pain (improving, but still definately there) Objective Physical Examination General Exam: Positive: Alert, Cooperative, No Acute Distress Eye Exam: Positive: EOMI; Negative: Sclera icteric ENT Exam: Positive: Other ENT (NG tube draining thin dark green, bilious fluid.) Neck Exam: Positive: Supple; Negative: Lymphadenopathy Chest Exam: Positive: Clear to auscultation, Rhonchi (some fine crackles at the bilateral bases, but they all but resolve with a deep breath and cough) Heart Exam: Positive: Rate Normal, Regular Rhythm, Normal S1, Normal S2 Abdomen Exam: Positive: BS Hypoactive (almost silent), Soft (much improved from yesterday, but there is still some moderate distention), Tenderness (mild everywhere except the epigastricum which is modfate), Other (there is no drainag e noted in his iliostomy bag that is in his R abdomen) Extremity Exam: Negative: Edema, Tenderness, Swelling Psych Exam: Positive: Mood NL Assessment /Plan Problems (1) SBO (small bowel obstruction) Status: Acute Response to Treatment: Improving Discussed With: Nurse, Mechanical Engineering Draftsperson, Patient, Family with Pt Consent Problem Specific Plan: Monitor Clinically Problem Text: He put quite a bit out from his NG tube over the last day and seems to be making some moves toward improvement. No gas in his ileostomy bag yet. Dr. Ontiveros is in charge of his surgical care. Will continue to monitor. (2) Hypokalemia, gastrointestinal losses Status: Acute Discussed With: Nurse, Mechanical Engineering Draftsperson, Patient, Family with Pt Consent Problem Specific Plan: Repeat Labs Problem Text: His potassium dropped significantly since his last labs. I strongly suspect this is because we have had so much success with removing backed up GI fluids. Surgery has already ordered 3 K-runs as well as changing his IVF to D5 1/2 NS with 40mEq KCL/L. I added a Mag-Run for a slightly low Mg level with more losses anticipated throughout the day. (3) Acute kidney injury Status: Acute Response to Treatment: Improving Discussed With: Nurse, Mechanical Engineering Draftsperson, Patient, Family with Pt Consent Problem Specific Plan: Repeat Labs Problem Text: His AXEL is making good improvement with IV hydration. Based on the possible crackles at his bases I will decrease his rate to 75cc/hr at this time. Since he is receiving some of his KCl repletion this way we may have a lower threshold for additional K-Runs if his repeat value comes back on the low side still. (4) Pulmonary infiltrates on CXR Discussed With: Patient, Family with Pt Consent Problem Specific Plan: Monitor Clinically Problem Text: My review of his CXR from yesterday afternoon (it is not resulted yet) reveals possibly early infiltrates in the R middle lobe. This with the history of greenish sputum production AND the possibility that the still may ne ed to go to surgery for a GI issue have convinced me to restart the Zosyn of which he received a dose down in the ER. (5) Hypertension Status: Chronic Response to Treatment: Stable Problem Specific Plan: Monitor Clinically Problem Text: His BP is adequately controlled. Continue current regimen, monitor. Plan/VTE VTE Prophylaxis Ordered?: Yes (SQ heparin. I added TEDs and Sequentials too.) Plan/Urinary Catheter Reason for insertion/continuin: Critical Pt monitoring Plan IVF: Decrease Medications: Replete Electrolytes IV VS, I&O, 24H, Fishbone Vital Signs/I&O Vital Signs Date Time Temp Pulse Resp B/P (MAP) Pulse Ox O2 Delivery O2 Flow Rate FiO2 05/14/18 09:01 91 128/62 05/14/18 07:57 98.5 20 91 Room Air I&O- Last 24 Hours up to 6 AM 05/14/18 06:00 Intake Total 4260 ml Output Total 7750 ml Balance -3490 ml Laboratory Data 24H LABS Laboratory Tests 2 05/13/18 12:48: Urine Appearance CLOUDYH, Urine Color REDH, Urine pH 5.0, Urine Specific [place] 1.015, Urine Protein 3+H, Urine Glucose (UA) NEGATIVE, Urine Ketones NEGATIVE, Urine Urobilinogen 0.2, Urine Bilirubin NEGATIVE, Urine Leukocyte Esterase NEGATIVE, Urine Blood 3+H, Urine Nitrite NEGATIVE, Urine WBC (Auto) 1, Urine RBC (Auto) TNTCH, Urine Hyaline Casts (Auto) 0, Urine Bacteria (Auto) 1+H, Urine Squamous Epithelial Cells 1, Urine Mucus (Auto) SMALL, Urine Sperm (Auto) , Urine Random Osmolality 488L, Urine Random Sodium 17 05/14/18 04:28: Nucleated Red Blood Cells % (auto) 0.0, Neutrophils 71, Band Neutrophils 7, Lymphocytes (Manual) 17, Monocytes (Manual) 4, Eosinophils (Manual) 1, Dohle Bodies 1+, Platelet Estimate NORMAL, Anion Gap 9, Glomerular Filtration Rate 52.2, Blood Urea Nitrogen 68H, Creatinine 1.40H, Sodium Level 140, Potassium Level 2.5#*L, Chloride Level 95L, Carbon Dioxide Level 36H, Calcium Level 7.9L, Magnesium Level 1.7L CBC/BMP Laboratory Tests 05/14/18 04:28 Red Blood Count 3.14 L, Mean Corpuscular Volume 90.1, Mean Corpuscular Hemoglob in 30.9, Mean Corpuscular Hemoglobin Concent 34.3, Red Cell Distribution Width 12.9, Calcium Level 7.9 L Microbiology Microbiology 05/12/18 Blood Culture - Preliminary, Resulted No growth after 24 hours . All specim... 05/12/18 Blood Culture - Preliminary, Resulted No growth after 24 hours . All specim... Andriy Leslie MD May 14, 2018 11:11 am
[2018-05-14] MEDS ORDERED: MAG SULF 1GM/100ML (MAG RUN) 1 GM in APPROPRIATE DILUENT 1 EA IV ONE (12:00)
--- NOTE | 2018-05-14 13:27 | IPNPDOC ---
Text Note Date of Service The patient was seen on 05/14/18. NOTE I was called urgently to the bedside to reassess Mr. Stanley at roughly 1:00. Nursing reports that he suddenly started having shortness of breath and his O2 sat dropped to 78%. They put him onto a non-rebreather mask and his sats improved to the low 90%s. By then I had arrived. He appeared to be in mild/moderate respiratory distress and was visibly tachypneic when I entered the room. It was reported that he had a coughing jag and brought up some green sputum. I looked at this and it looks very similar to the gastric contents to me. I asked that his NG suction be turned to continuous from intermittent. About 400ml of dark green bilious fluid was recovered in a couple minutes; this is on top of the 1200ml that the nurse had already emptied from the beginning of her shift about 6 hours ago. When I listened to his chest there were slightly more crackles noted at the bilateral bases than earlier this morning, but no real significant change. He denied any significant dyspnea. I requested that we try to change him back to the nasal canula to see if he could maintain on lower flow again. This was done, but at 5L O2, his sats dropped into the mid 80%s again. I ordered a stat ABG and requested he be returned to the non-rebreather mask. The ABG showed a compensated metabolic alkalosis, which is consistent with his history of having lost over 5L of fluid via NG suction in the last day. It does not help explain why he was acutely dyspenic. If anything he should have had bradypnea not tachypnea. I had examined his legs both in the morning and when I reassessed him. There is no swelling or edema. However, I clarified his history with his daughter and was reminded that he had a testicular leiomyosarcoma removed just two weeks ago, then he had immobility "basically laying in his bed" for 3-4 days prior to admission because of the developing small bowel obstruc tion. Given this history pulmonary embolism has to be excluded. I was initially hesitant to order a CTA of his chest because his renal function had just started improving today after his pre-renal AXEL from the SBO. However, it doesn't seem avoidable at this time. I explained this to his daughter and the test was ordered. I have kept Dr. Ontiveros informed of his change of condition. VS,Fishbone, I+O VS, Fishbone, I+O Laboratory Tests 05/14/18 04:28 Red Blood Count 3.14 L, Mean Corpuscular Volume 90.1, Mean Corpuscular Hemoglobin 30.9, Mean Corpuscular Hemoglobin Concent 34.3, Red Cell Distribution Width 12.9, Calcium Level 7.9 L 05/14/18 11:46 Vital Signs Date Time Temp Pulse Resp B/P (MAP) Pulse Ox O2 Delivery O2 Flow Rate FiO2 05/14/18 11:47 98.0 103 20 130/67 (88) 90 Room Air I&O- Last 24 Hours up to 6 AM 05/14/18 05:59 Intake Total 4080 ml Output Total 6100 ml Balance -2020 ml Andriy Leslie MD May 14, 2018 1:26 pm
[2018-05-14 13:31] LABS: ABG BASE EXCESS 9.5 (-2.0-2.0); ABG HCO3 32.8 MEQ/L (22.0-26.0); ABG PARTIAL PRESSURE CO2 39.4 mmHg (35.0-45.0); ABG PARTIAL PRESSURE O2 51.2 mmHg (75.0-100.0); ABG pH (ARTERIAL) 7.538 UNITS (7.350-7.450)
[2018-05-14] MEDS: PIPERACILLIN/TAZOBACTAM SOD 3.375 GM in D5W MINI-BAG PLUS 50 ML IV SCH ×2 (13:51→17:52)
[2018-05-14] MEDS ORDERED: ISOVUE-370 76% 100ML VIAL (Q9967) As Ordered ONE (14:07)
[2018-05-14] MEDS ORDERED: ALBUTEROL SULFATE 2.5 MG/0.5 ML INH NEB SOLN NEB SCH (16:00)
--- NOTE | 2018-05-14 16:03 | REP ---
CHEST, TWO VIEWS: Two views of the chest are performed and compared to prior study of 02/24/2018. There is some mild patchy atelectasis or infiltrate in each lung base. The heart is not enlarged. There is calcification of the thoracic aorta. Nasogastric tube is seen with distal end in the stomach. IMPRESSION: Mild bibasilar atelectasis/infiltrate. Electronically Signed by Jose Kelly MD 05/14/2018 04:20 P
--- NOTE | 2018-05-14 19:38 | REP ---
CT ANGIOGRAM CHEST: TECHNIQUE: Axial contrast enhanced images from the thoracic inlet to the upper abdomen using 100 mL Isovue 370 intravenous contrast material with multiplanar reformations. There is no CT evidence of pulmonary embolism. There are mild atherosclerotic calcifications of the thoracic aorta without dissection or aneurysm. There is no cardiomegaly. There is no pericardial effusion. I do not see significant adenopathy in the chest. There is a small right pleural effusion. There are patchy bibasilar infiltrates. Nasogastric tube transverses into the stomach. There are degenerative changes of the spine. IMPRESSION: No CT evidence of pulmonary embolism or aortic dissection. Small right pleural effusion, bibasilar infiltrates. Electronically Signed by Jose Kelly MD 05/15/2018 09:17 A
--- NOTE | 2018-05-14 19:43 | REP ---
CT ABDOMEN AND PELVIS WITH IV CONTRAST: TECHNIQUE: Axial contrast enhanced images from the lung bases to the pubic symphysis using 100 mL Isovue 370 intravenous contrast material with multiplanar reformations. COMPARISON: 05/12/2018 The liver, spleen, and pancreas are again unremarkable. There is mild thickening of the adrenal glands bilaterally. There is a cyst of the kidney. There is no hydronephrosis bilaterally. Previously noted right ureteral calculus is now more distally located at the right ureterovesical junction. There is a Little catheter in a collapsed urinary bladder. There are atherosclerotic calcifications again seen of the abdominal aorta without aneurysm. There is no adenopathy. There is a tiny amount of free fluid in the right upper quadrant. There is persistent moderate proximal small bowel dilatation with collapsed distal ileum consistent with persistent small bowel obstruction. Ileostomy is again noted. The patient has had a prior colectomy. IMPRESSION: Persistent small bowel obstruction. No free air or free fluid. Previously noted right ureteral calculus is now more distally located at the right ureterovesical junction. There is no hydronephrosis. Little catheter in a collapsed urinary bladder. Nasogastric tube in the stomach. Electronically Signed by Jose Kelly MD 05/15/2018 09:17 A
[2018-05-14] MEDS: ALBUTEROL SULFATE 2.5 MG/0.5 ML INH NEB SOLN NEB PRN (20:10)
[2018-05-14 22:42] LABS: POTASSIUM SERUM 3.2 MEQ/L (3.5-5.1); TROPONIN I 0.1 NG/ML (< 0.10)
[2018-05-15] VITALS (7 sets, daily range): BP systolic 129–161; BP diastolic 61–78
[2018-05-15] MEDS: PIPERACILLIN/TAZOBACTAM SOD 3.375 GM in D5W MINI-BAG PLUS 50 ML IV SCH ×4 (00:46→17:49)
[2018-05-15 06:34] LABS: HEMATOCRIT 27.9 % (42.0-52.0); HEMOGLOBIN 9.4 g/dl (13.5-17.5); MEAN CORPUSCULAR HEMOGLOBIN 30.5 pg (27.0-33.0); MEAN CORPUSCULAR HGB CONC 33.7 g/dl (32.0-36.5); MEAN CORPUSCULAR VOLUME 90.6 fl (80.0-96.0); PLATELET COUNT, AUTOMATED 230 10^3/uL (150-450); RED BLOOD COUNT 3.08 10^6/uL (4.30-6.10); WHITE BLOOD COUNT 8.2 10^3/uL (4.0-10.0)
[2018-05-15 06:56] LABS: LYMPHOCYTES 6 % (16-52); METAMYELOCYTES 2 % (0-0); MONOCYTES 6 % (0-8); NEUTROPHILS 84 % (35-75); PLATELET ESTIMATE NORMAL (NORMAL)
[2018-05-15 06:58] LABS: DOHLE BODIES 1+
[2018-05-15] MEDS: ALBUTEROL SULFATE 2.5 MG/0.5 ML INH NEB SOLN NEB PRN (07:01)
[2018-05-15 07:10] LABS: ALBUMIN 2.2 GM/DL (3.2-5.2); BILIRUBIN,TOTAL 0.9 MG/DL (0.2-1.0); CALCIUM LEVEL 8.5 MG/DL (8.8-10.2); CREATININE FOR GFR 1.67 MG/DL (0.70-1.30); GLOMERULAR FILTRATION RATE 42.6 (>42); POTASSIUM SERUM 2.8 MEQ/L (3.5-5.1); TOTAL PROTEIN 6.3 GM/DL (6.4-8.2)
[2018-05-15] MEDS: HEPARIN SOD (PORCINE) 5000 UNITS/ML VIAL SQ SCH ×2 (08:09→21:11)
[2018-05-15] MEDS: PANTOPRAZOLE 40MG INJ (PROTONIX) (C9113) IV SCH (08:09)
[2018-05-15] MEDS: amLODIPine 5 MG TAB PO SCH (08:10)
[2018-05-15 08:29] LABS: TROPONIN I 0.12 NG/ML (< 0.10)
[2018-05-15] MEDS ORDERED: KCL 20MEQ IN 100ML SWI (KRUN) 20 MEQ in APPROPRIATE DILUENT 1 EA IV ONE ×2 (08:45)
[2018-05-15] MEDS: KCL 40MEQ IN D5/0.45NS 1000ML 1,000 ML IV SCH (09:08)
[2018-05-15] MEDS: POTASSIUM CHLORIDE 10 MEQ/100 ML IV SCH ×12 (09:08→16:38)
[2018-05-15 09:57] LABS: MAGNESIUM LEVEL 2.7 MG/DL (1.8-2.4)
--- NOTE | 2018-05-15 11:54 | IPNPDOC ---
Subjective General Date/Time Seen The patient was seen on 05/15/18 at 11:46. Subject Chief Complaint/History The patient is a 78-year-old male admitted with a reason for visit of Small Bowl Obstruction. Patient had respiratory decompensation yesterday afternoon and I was in contact with Dr. Leslie. We think he had aspiration and most likely pneumonitis at this point. This morning he still remains on a nonrebreather mask. He is satting up to 98%. His respirations are still labored some. He was also started on Zosyn. He had a CT angiogram of the chest which ruled out pulmonary embolus. This was also extended to the abdomen to evaluate the bowels. He still has a small amount of air in the bag with minimal function from the ileostomy. His abdomen is mostly decompressed but still somewhat distended. He is not having any marked tenderness in the abdomen. Current Medications Current Medications Current Medications Albuterol Sulfate (Proventil Neb) 2.5 mg Q4HP PRN NEB SHORTNESS OF BREATH Last administered on 05/15/18at 07:01; Start 05/14/18 at 16:00 Albuterol Sulfate (Proventil Neb) 2.5 mg RQ4H NEB Last administered on 05/14/18at 15:51; Start 05/14/18 at 16:00; Stop 05/14/18 at 16:00; Status DC Amlodipine Besylate (Norvasc) 5 mg DAILY PO Last administered on 05/15/18at 08:10; Start 05/13/18 at 09:00 Heparin Sodium (Porcine) (Heparin) 5,000 units Q12H SQ Last administered on 05/15/18at 08:09; Start 05/13/18 at 09:00 Home Med (Med Rec Complete!) ASDIRECTED XX ; Start 05/12/18 at 16:15; Stop 05/12/18 at 16:15; Status DC Lactated Ringer's 1,000 ml @ 150 mls/hr Q6H40M IV Last administered on 05/14/18at 05:03; Start 05/12/18 at 17:00; Stop 05/14/18 at 09:41; Status DC Morphine Sulfate (Morphine Sulfate Inj) 2 mg Q15M PRN IV MODERATE/SEVERE PAIN (PS 5-10) Last administered on 05/12/18at 16:01; Start 05/12/18 at 13:30; Stop 05/12/18 at 16:01; Status DC Morphine Sulfate (Morphine Sulfate Inj) 4 mg Q2HP PRN IV SEVERE PAIN (PS 8-10) Last administered on 05/14/18at 02:02; Start 05/12/18 at 16:15 Ondansetron HCl (ZOFRAN INJection) 4 mg Q6HP PRN IV NAUSEA OR VOMITING; Start 05/12/18 at 16:15 Pantoprazole Sodium (Protonix) 40 mg DAILY IV Last administered on 05/15/18at 08:09; Start 05/12/18 at 09:00 Piperacillin Sod/ Tazobactam Sod 3.375 gm/Dextrose 50 ml @ 50 mls/hr Q6H IV Last administered on 05/15/18at 05:56; Start 05/14/18 at 12:00 Potassium Chloride 10 meq/ IV Miscellaneous Supplies 100 ml @ 100 mls/hr [id number] IV Last administered on 05/14/18at 10:10; Start 05/14/18 at 06:30; Stop 05/14/18 at 12:00; Status DC Potassium Chloride 10 meq/ IV Miscellaneous Supplies 100 ml @ 100 mls/hr Q1H IV Last administered on 05/15/18at 11:37; Start 05/15/18 at 09:30; Stop 05/15/18 at 15:29 Potassium Chloride 10 meq/ IV Miscellaneous Supplies 100 ml @ 100 mls/hr Q1H IV Last administered on 05/14/18at 21:01; Start 05/14/18 at 17:00; Stop 05/14/18 at 19:59; Status DC Potassium Chloride/Dextrose/ Sod Cl 1,000 ml @ 75 mls/hr [id number] IV Last administered on 05/15/18at 09:08; Start 05/14/18 at 06:15 Sodium Chloride 1,000 ml @ 100 mls/hr Q10H IV ; Start 05/12/18 at 13:18; Stop 05/12/18 at 16:11; Status DC Allergies Coded Allergies: No Known Allergies (Unverified , 02/27/18) Objective Physical Examination Examination GENERAL APPEARANCE: Patient seen still on a nonrebreather mask, they report breathing, reports abdomen is comfortable.. SKIN: Warm and dry. HEENT: Normocephalic, atraumatic. Mild pale palpebral conjunctiva, anicteric sclerae. Lips and mucosa appear dry. He has a nasogastric tube in place and this is draining bilious, greenish fluid. NECK: Supple, no thyromegaly. No obvious jugular venous distention. LUNGS: Decreased breath sounds with scattered rales bilaterally most prominent on both lower lungs. HEART: No chest wall abnormalities. Tachycardic, regular rhythm. ABDOMEN: Abdomen is mostly flat, slight more prominence the left of the umbilicus, soft, tympanitic to percussion, hypoactive bowel sounds. Right lower quadrant ileostomy with air in the bag, healthy. Nontender on palpation. EXTREMITIES: Extremities have no deformities. No edema identified. Vital Signs Vital Signs Date Time Temp Pulse Resp B/P (MAP) Pulse Ox O2 Delivery O2 Flow Rate FiO2 05/15/18 09:14 95 Venturi Mask 15.0 40 05/15/18 08:10 69 135/62 05/15/18 08:00 98.9 18 I&Os I&O- Last 24 Hours up to 6 AM 05/15/18 06:00 Intake Total 550 ml Output Total 3950 ml Balance -3400 ml Laboratory Data Labs 24H Laboratory Tests 2 05/14/18 13:22: Blood Gas Bicarbonate Standard 33.0H, Arterial Blood pH 7.538H, Arterial Blood Partial Pressure CO2 39.4, Arterial Blood Partial Pressure O2 51.2L, Arterial Blood Total CO2 34.0H, Arterial Blood HCO3 32.8H, Arterial Blood Base Excess 9.5H, Arterial Blood Oxygen Saturation 87.0L 05/14/18 14:22: Bedside Glucose (Misc Panel) 115H 05/14/18 16:21: Troponin I 0.12#H 05/14/18 21:58: Troponin I 0.10, Sodium Level 143, Potassium Level 3.2L, Chloride Level 98, Carbon Dioxide Level 33H, Anion Gap 12 05/15/18 06:02: Nucleated Red Blood Cells % (auto) 0.2H, Neutrophils 84H, Band Neutrophils 2, Lymphocytes (Manual) 6L, Monocytes (Manual) 6, Metamyelocytes 2H, Dohle Bodies 1+, Platelet Estimate NORMAL, Red Blood Cell Morphology NORMAL, Anion Gap 8, Glomerular Filtration Rate 42.6, Lactic Acid Level 2.0, Blood Urea Nitrogen 58H, Creatinine 1.67H, Sodium Level 142, Potassium Level 2.8*L, Chloride Level 98, Carbon Dioxide Level 36H, Calcium Level 8.5L, Aspartate Amino Transf (AST/SGOT) 22, Alanine Aminotransferase (ALT/SGPT) 19, Alkaline Phosphatase 44L, Total Bilirubin 0.9, Total Protein 6.3L, Albumin 2.2#L, Magnesium Level 2.7H, Troponin I 0.12H, Albumin/Globulin Ratio 0.54L CBC/BMP Laboratory Tests 05/14/18 21:58 Anion Gap 12 05/15/18 06:02 Red Blood Count 3.08 L, Mean Corpuscular Volume 90.6, Mean Corpuscular Hemoglobin 30.5, Mean Corpuscular Hemoglobin Concent 33.7, Red Cell Distribution Width 13.1, Calcium Level 8.5 L, Aspartate Amino Transf (AST/SGOT) 22, Alanine Aminotransferase (ALT/SGPT) 19, Alkaline Phosphatase 44 L, Total Bilirubin 0.9, Total Protein 6.3 L, Albumin 2.2 #L Microbiology Microbiology 05/12/18 Blood Culture - Preliminary, Resulted No Growth after 48 hours. All Specime... 05/12/18 Blood Culture - Preliminary, Resulted No Growth after 48 hours. All Specime... Impression Small bowel obstruction Ileostomy status Acute renal failure improving, adequate urine output Acute respiratory failure with most likely aspiration pneumonitis He continues to have evidence for small bowel obstruction both clinically and on the CT does done yesterday. There is no free perforation or signs of threatened bowel but he is draining a lot from his nasogastric tube and has not regained ileostomy function. Initially I was hopeful yesterday that he was starting to have some output from the ileostomy but this has not improved. Coupled with this he had some respiratory decompensation most likely secondary to aspiration and may have some pneumonitis. He still remains on a nonrebreather though his saturations are better. I discussed the case with Dr. Hays. My concerns are for his respiratory status postoperatively if and when they bring him to the OR for which usually he will be at risk for prolonged need for mechanical ventilation. I have expressed this to the patient. She suggested trying to do the case early in the morning and try to aggressively wean him off the ventilator. I'll discuss this with the OR and try to find some time to do this early tomorrow. For now we'll continue with hyperinflation therapy. Continue with Zosyn. DVT prophylaxis in place with heparin subcutaneous. Plan / VTE VTE Prophylaxis Ordered?: Yes (SQ heparin. I added TEDs and Sequentials too.) Plan / Urinary Catheter Reason for insertion/continuin: Critical Pt monitoring SUNNY AVALOS MD May 15, 2018 11:54
[2018-05-15 14:41] LABS: CALCIUM LEVEL 8.5 MG/DL (8.8-10.2); CREATININE FOR GFR 1.52 MG/DL (0.70-1.30); GLOMERULAR FILTRATION RATE 47.5 (>42); POTASSIUM SERUM 3.4 MEQ/L (3.5-5.1)
--- NOTE | 2018-05-15 16:06 | IPNPDOC ---
Subjective Date Seen The patient was seen on 05/15/18. Subjective Chief Complaint/HPI stable dyspnea, minimal abdominal pain Constitutional: Denies: Chills Eyes: Denies: Pain, Vision change ENT: Denies: Head Aches Skin: Denies: Rash Pulmonary: Reports: Dyspnea; Denies: Cough Cardiovascular: Denies: Chest Pain, Palpitations Gastrointestinal: Denies: Nausea, Vomiting Genitourinary: Denies: Dysuria Objective Physical Examination General Exam: Positive: Alert, Cooperative, No Acute Distress Eye Exam: Positive: EOMI; Negative: Sclera icteric ENT Exam: Positive: Other ENT (NG tube draining thin dark green, bilious fluid.) Neck Exam: Positive: Supple; Negative: Lymphadenopathy Chest Exam: Positive: Clear to auscultation, Rhonchi (some fine crackles at the bilateral bases, but they all but resolve with a deep breath and cough) Heart Exam: Positive: Rate Normal, Regular Rhythm, Normal S1, Normal S2 Abdomen Exam: Positive: BS Hypoactive (almost silent), Soft (much improved from yesterday, but there is still some moderate distention), Tenderness (mild everywhere except the epigastricum which is modfate), Other (there is no drainage noted in his iliostomy bag that is in his R abdomen) Extremity Exam: Negative: Edema, Tenderness, Swelling Psych Exam: Positive: Mood NL Assessment /Plan Problems (1) Aspiration pneumonia Status: Acute Problem Text: c mild hypoxia, onset 05/14 D2 pip/preeti 05/15 stable SaO2 on 40%VM 05/14 CTA chest - for PE (2) SBO (small bowel obstruction) Status: Acute Response to Treatment: Improving Discussed With: Nurse, Manager Editorial, Patient, Family with Pt Consent Problem Specific Plan: Monitor Clinically Problem Text: plan for surgical correction by Dr. Ontiveros 05/16 obvious high risk post-op ventilator dependency 2 hypoxia RF persistent by 05/14 CT AP (3) Hypokalemia, gastrointestinal losses Status: Acute Discussed With: Nurse, Manager Editorial, Patient, Family with Pt Consent Problem Specific Plan: Repeat Labs Problem Text: 2 NGT losses 05/15 2.8-->3.4 p 2 K runs (4) Acute kidney injury Status: Acute Response to Treatment: Improving Discussed With: Nurse, Manager Editorial, Patient, Family with Pt Consent Problem Specific Plan: Repeat Labs Problem Text: baseline cr 1.1 improved c IVF (5) Hypertension Status: Chronic Response to Treatment: Stable Problem Specific Plan: Monitor Clinically Problem Text: Stable on HD almo 5 Plan/VTE VTE Prophylaxis Ordered?: Yes (SQ heparin. I added TEDs and Sequentials too.) Plan/Urinary Catheter Reason for insertion/continuin: Critical Pt monitoring Plan IVF: Decrease Medications: Replete Electrolytes IV VS, I&O, 24H, Fishbone Vital Signs/I&O Vital Signs Date Time Temp Pulse Resp B/P (MAP) Pulse Ox O2 Delivery O2 Flow Rate FiO2 05/15/18 14:43 94 Nasal Cannula 3.0 05/15/18 12:00 40 05/15/18 12:00 99.2 84 16 153/70 (97) I&O- Last 24 Hours up to 6 AM 05/15/18 06:00 Intake Total 550 ml Output Total 3950 ml Balance -3400 ml Laboratory Data 24H LABS Laboratory Tests 2 05/14/18 16:21: Troponin I 0.12#H 05/14/18 21:58: Troponin I 0.10, Sodium Level 143, Potassium Level 3.2L, Chloride Level 98, Carbon Dioxide Level 33H, Anion Gap 12 05/15/18 06:02: Troponin I 0.12H, Sodium Level 142, Potassium Level 2.8*L, Chloride Level 98, Carbon Dioxide Level 36H, Anion Gap 8, Nucleated Red Blood Cells % (auto) 0.2H, Neutrophils 84H, Band Neutrophils 2, Lymphocytes (Manual) 6L, Monocytes (Manual) 6, Metamyelocytes 2H, Dohle Bodies 1+, Platelet Estimate NORMAL, Red Blood Cell Morphology NORMAL, Glomerular Filtration Rate 42.6, Lactic Acid Level 2.0, Blood Urea Nitrogen 58H, Creatinine 1.67H, Calcium Level 8.5L, Aspartate Amino Transf (AST/SGOT) 22, Alanine Aminotransferase (ALT/SGPT) 19, Alkaline Phosphatase 44L, Total Bilirubin 0.9, Total Protein 6.3L, Albumin 2.2#L, Magnesium Level 2.7H, Albumin/Globulin Ratio 0.54L 05/15/18 13:42: Sodium Level 144, Potassium Level 3.4#L, Chloride Level 99, Carbon Dioxide Level 38H, Anion Gap 7L, Glomerular Filtration Rate 47.5, Blood Urea Nitrogen 51H, Creatinine 1.52H, Calcium Level 8.5L CBC/BMP Laboratory Tests 05/14/18 21:58 Anion Gap 12 05/15/18 06:02 Red Blood Count 3.08 L, Mean Corpuscular Volume 90.6, Mean Corpuscular Hemoglobin 30.5, Mean Corpuscular Hemoglobin Concent 33.7, Red Cell Distribution Width 13.1, Calcium Level 8.5 L, Aspartate Amino Transf (AST/SGOT) 22, Alanine Aminotransferase (ALT/SGPT) 19, Alkaline Phosphatase 44 L, Total Bilirubin 0.9, Total Protein 6.3 L, Albumin 2.2 #L 05/15/18 13:42 Calcium Level 8.5 L Microbiology Microbiology 05/12/18 Blood Culture - Preliminary, Resulted No Growth after 72 hours. All specime... 05/12/18 Blood Culture - Preliminary, Resulted No Growth after 72 hours. All specime... Jeremy Beckett M.D. May 15, 2018 16:06
[2018-05-16] MEDS: PIPERACILLIN/TAZOBACTAM SOD 3.375 GM in D5W MINI-BAG PLUS 50 ML IV SCH ×4 (01:14→18:00)
[2018-05-16 04:45] VITALS: BP 153/73
[2018-05-16 05:49] LABS: HEMATOCRIT 32.8 % (42.0-52.0); HEMOGLOBIN 9.8 g/dl (13.5-17.5); MEAN CORPUSCULAR HEMOGLOBIN 30.6 pg (27.0-33.0); MEAN CORPUSCULAR HGB CONC 29.9 g/dl (32.0-36.5); MEAN CORPUSCULAR VOLUME 102.5 fl (80.0-96.0); PLATELET COUNT, AUTOMATED 150 10^3/uL (150-450); WHITE BLOOD COUNT 12.4 10^3/uL (4.0-10.0)
[2018-05-16 06:05] LABS: CALCIUM LEVEL 8.8 MG/DL (8.8-10.2); CREATININE FOR GFR 1.68 MG/DL (0.70-1.30); GLOMERULAR FILTRATION RATE 42.3 (>42); POTASSIUM SERUM 3.5 MEQ/L (3.5-5.1)
[2018-05-16 06:37] LABS: ANISOCYTOSIS 1+; ATYPICAL LYMPH 2 % (0-5); LYMPHOCYTES 7 % (16-52); MONOCYTES 13 % (0-8); NEUTROPHILS 76 % (35-75); PLATELET ESTIMATE NORMAL (NORMAL)
[2018-05-16] MEDS: KCL 40MEQ IN D5/0.45NS 1000ML 1,000 ML IV SCH (07:36)
[2018-05-16 07:40] VITALS: BP 162/77
[2018-05-16] MEDS: HEPARIN SOD (PORCINE) 5000 UNITS/ML VIAL SQ SCH (08:10)
[2018-05-16] MEDS: PANTOPRAZOLE 40MG INJ (PROTONIX) (C9113) IV SCH (08:29)
[2018-05-16] MEDS: amLODIPine 5 MG TAB PO SCH (08:30)
--- NOTE | 2018-05-16 10:22 | IPNPDOC ---
Subjective Date Seen The patient was seen on 05/16/18. Subjective Chief Complaint/HPI Patient seen and examined at bedside. Nurse reports his oxygen demand has decreased, he is off the ventimask and now on oxygen via 3 L NC. He has had a lot of NG tube drainage: 2300 mL of dark green thin bilious gastric contents. Patient denies any acute complaints today. Constitutional: Denies: Chills, Fever ENT: Denies: Head Aches Skin: Denies: Rash Pulmonary: Denies: Dyspnea, Cough Cardiovascular: Denies: Chest Pain Gastrointestinal: Reports: Other Symptoms (has SBO.); Denies: Nausea, Vomiting, Abdominal Pain (denies abd pain), Diarrhea Genitourinary: Reports: Other Symptoms (has santacruz catheter; denies urinary issues; has been having good urine output ) Hematologic: Denies: Bruising Musculoskeletal: Denies: Joint Pain, Muscle Pain Neurological: Denies: Confusion Psych: Reports: Mood Normal Objective Physical Examination General Exam: Positive: Alert, Cooperative, No Acute Distress Eye Exam: Negative: Sclera icteric ENT Exam: Positive: Atraumatic, Other ENT (NG tube draining thin dark green, b ilious fluid.) Neck Exam: Positive: Supple; Negative: Lymphadenopathy Chest Exam: Positive: Rhonchi (fine crackles at bilateral bases. ), Diminished; Negative: Wheezing Heart Exam: Positive: Rate Normal, Regular Rhythm, Normal S1, Normal S2 Abdomen Exam: Positive: BS Hypoactive (almost silent), Soft (still with some moderate distention), Tenderness (generalized), Other (there is minimal brown drainage noted in his ileostomy bag that is in his R abdomen) Extremity Exam: Negative: Edema, Tenderness, Swelling Skin Exam: Negative: Rash Psych Exam: Positive: Mood NL Assessment /Plan Problems (1) Aspiration pneumonia Status: Acute Problem Text: 05/16/18: Afebrile. Had Tmax of 100.2 overnight at 4:45 AM, but this resolved spontaneously. Oxygen demand has decreased and patient is off of ventimask. Is on 3L O2 via NC now. Continue zosyn Day #3. Dx=ACUTE HYPOXIC RESP FAILURE DUE TO ASPIRATION c mild hypoxia, onset 05/14 D2 pip/preeti 05/15 stable SaO2 on 40%VM 05/14 CTA chest - for PE (2) SBO (small bowel obstruction) Status: Acute Response to Treatment: Improving Discussed With: Nurse, Still Runner, Patient, Family with Pt Consent Problem Specific Plan: Monitor Clinically Problem Text: 05/16/18: Has surgery with Dr. Ontiveros today scheduled for 1:30 PM. Is NPO status. plan for surgical correction by Dr. Ontiveros 05/16 obvious high risk post-op ventilator dependency 2 hypoxia RF JFW: medically optimized for OR today. BP is OK, potassium nl (2 K-runs ordered) persistent by 05/14 CT AP (3) Hypokalemia, gastrointestinal losses Status: Acute Discussed With: Nurse, Still Runner, Patient, Family with Pt Consent Problem Specific Plan: Repeat Labs Problem Text: 05/16/18: K was WNL at 3.5 today. Will continue to monitor and order a 6 PM BMP as well as Mg level due to hx of hypokalemia and hypomagnesemia from GI losses from NG tube. 2 NGT losses 05/15 2.8-->3.4 p 2 K runs (4) Acute kidney injury Status: Acute Response to Treatment: Improving Discussed With: Nurse, Still Runner, Patient, Family with Pt Consent Problem Specific Plan: Repeat Labs Problem Text: 05/16/18: Cr bumped back up to 1.68 today from 1.52 yesterday. Likely secondary to decreased perfusion of kidneys due to decreased rate of IVF to 75 cc's/hr due to having CT Angio scan done to rule out PE with IV contrast dye for nephroprotection. Continue to monitor BMP. baseline cr 1.1 improved c IVF (5) Hypertension Status: Chronic Response to Treatment: Stable Problem Specific Plan: Monitor Clinically Problem Text: 05/16/18: Stable. BP was 142/70 this AM. Continue amlodipine 5 mg daily. Stable on HD almo 5 Plan/VTE VTE Prophylaxis Ordered?: Yes (SQ heparin. TEDs and Sequentials.) Plan/Urinary Catheter Reason for insertion/continuin: Critical Pt monitoring Plan IVF: Decrease Medications: Replete Electrolytes IV VS, I&O, 24H, Fishbone Vital Signs/I&O Vital Signs Date Time Temp Pulse Resp B/P (MAP) Pulse Ox O2 Delivery O2 Flow Rate FiO2 05/16/18 08:30 80 142/70 05/16/18 08:00 3.0 05/16/18 07:40 97.6 18 98 Nasal Cannula 05/15/18 12:00 40 I&O- Last 24 Hours up to 6 AM 05/16/18 06:00 Intake Total 1500 ml Output Total 4175 ml Balance -2675 ml Laboratory Data 24H LABS Laboratory Tests 2 05/15/18 13:42: Anion Gap 7L, Glomerular Filtration Rate 47.5, Blood Urea Nitrogen 51H, Creatinine 1.52H, Sodium Level 144, Potassium Level 3.4#L, Chloride Level 99, Carbon Dioxide Level 38H, Calcium Level 8.5L 05/16/18 05:30: Anion Gap 5L, Glomerular Filtration Rate 42.3, Blood Urea Nitrogen 47H, Crea tinine 1.68H, Sodium Level 145, Potassium Level 3.5, Chloride Level 102, Carbon Dioxide Level 38H, Calcium Level 8.8, Nucleated Red Blood Cells % (auto) 0.2H, Neutrophils 76H, Band Neutrophils 2, Lymphocytes (Manual) 7L, Monocytes (Manual) 13H, Atypical Lymphocytes 2, Platelet Estimate NORMAL, Anisocytosis 1+ CBC/BMP Laboratory Tests 05/15/18 13:42 Calcium Level 8.5 L 05/16/18 05:30 Calcium Level 8.8, Red Blood Count 3.20 L, Mean Corpuscular Volume 102.5 H, Mean Corpuscular Hemoglobin 30.6, Mean Corpuscular Hemoglobin Concent 29.9 L, Red Cell Distribution Width 12.3 Microbiology Microbiology 05/12/18 Blood Culture - Preliminary, Resulted No Growth after 72 hours. All specime... 05/12/18 Blood Culture - Preliminary, Resulted No Growth after 72 hours. All specime... GME ATTESTATION GME ATTESTATION My faculty preceptor for this patient encounter was Dr. Clay Sousa, and was physically present during the encounter and was fully available. All aspects of the patient interview, examination, medical decision making process, and medical care plan development were reviewed and approved by the faculty preceptor. The faculty preceptor is aware and concurs with the plan as stated in the body of this note and will attest to such by his/her cosignature. BERYL JO DO May 16, 2018 10:22 Clay Sousa MD May 16, 2018 11:03
[2018-05-16 12:00] VITALS: BP 157/77
[2018-05-16] MEDS: KCL 10MEQ/100ML SWI (KRUN) 10 MEQ in APPROPRIATE DILUENT 1 EA IV SCH ×2 (12:04→13:16)
--- NOTE | 2018-05-16 13:46 | IPNPDOC ---
Subjective General Date/Time Seen The patient was seen on 05/16/18 at 13:43. Subject Chief Complaint/History The patient is a 78-year-old male admitted with a reason for visit of Small Bowl Obstruction. Patient of nonrebreather on the nasal cannula. He reports being able to breathe better though still possibly has some mild shortness of breath. He denies any abdominal discomfort. He continues to have minimal to no output from his ileostomy. Current Medications Current Medications Current Medications Albuterol Sulfate (Proventil Neb) 2.5 mg Q4HP PRN NEB SHORTNESS OF BREATH Last administered on 05/15/18at 07:01; Start 05/14/18 at 16:00 Albuterol Sulfate (Proventil Neb) 2.5 mg RQ4H NEB Last administered on 05/14/18at 15:51; Start 05/14/18 at 16:00; Stop 05/14/18 at 16:00; Status DC Amlodipine Besylate (Norvasc) 5 mg DAILY PO Last administered on 05/16/18at 08:30; Start 05/13/18 at 09:00 Heparin Sodium (Porcine) (Heparin) 5,000 units Q12H SQ Last administered on 05/15/18at 21:11; Start 05/13/18 at 09:00 Home Med (Med Rec Complete!) ASDIRECTED XX ; Start 05/12/18 at 16:15; Stop 05/12/18 at 16:15; Status DC Lactated Ringer's 1,000 ml @ 150 mls/hr Q6H40M IV Last administered on 05/14/18at 05:03; Start 05/12/18 at 17:00; Stop 05/14/18 at 09:41; Status DC Morphine Sulfate (Morphine Sulfate Inj) 2 mg Q15M PRN IV MODERATE/SEVERE PAIN (PS 5-10) Last administered on 05/12/18at 16:01; Start 05/12/18 at 13:30; Stop 05/12/18 at 16:01; Status DC Morphine Sulfate (Morphine Sulfate Inj) 4 mg Q2HP PRN IV SEVERE PAIN (PS 8-10) Last administered on 05/14/18at 02:02; Start 05/12/18 at 16:15 Ondansetron HCl (ZOFRAN INJection) 4 mg Q6HP PRN IV NAUSEA OR VOMITING; Start 05/12/18 at 16:15 Pantoprazole Sodium (Protonix) 40 mg DAILY IV Last administered on 05/16/18at 08:29; Start 05/12/18 at 09:00 Piperacillin Sod/ Tazobactam Sod 3.375 gm/Dextrose 50 ml @ 50 mls/hr Q6H IV Last administered on 05/16/18at 11:06; Start 05/14/18 at 12:00 Potassium Chloride 10 meq/ IV Miscellaneous Supplies 100 ml @ 100 mls/hr 0630,0730,0830 IV Last administered on 05/14/18at 10:10; Start 05/14/18 at 06:30; Stop 05/14/18 at 12:00; Status DC Potassium Chloride 10 meq/ IV Miscellaneous Supplies 100 ml @ 100 mls/hr Q1H IV Last administered on 05/15/18at 16:38; Start 05/15/18 at 09:30; Stop 05/15/18 at 15:29; Status DC Potassium Chloride 10 meq/ IV Miscellaneous Supplies 100 ml @ 100 mls/hr Q1H IV Last administered on 05/16/18at 13:16; Start 05/16/18 at 12:00; Stop 05/16/18 at 13:59 Potassium Chloride 10 meq/ IV Miscellaneous Supplies 100 ml @ 100 mls/hr Q1H IV Last administered on 05/14/18at 21:01; Start 05/14/18 at 17:00; Stop 05/14/18 at 19:59; Status DC Potassium Chloride/Dextrose/ Sod Cl 1,000 ml @ 75 mls/hr Q10D04M IV Last administered on 05/16/18at 07:36; Start 05/14/18 at 06:15 Sodium Chloride 1,000 ml @ 100 mls/hr Q10H IV ; Start 05/12/18 at 13:18; Stop 05/12/18 at 16:11; Status DC Allergies Coded Allergies: No Known Allergies (Unverified , 02/27/18) Objective Physical Examination Examination GENERAL APPEARANCE: Mild shortness of breath, labored breathing effort improved since yesterday. SKIN: Warm and dry. HEENT: Lips are dry. Nasogastric tube in place draining bilious fluid. NECK: Supple, no thyromegaly. No obvious jugular venous distention. LUNGS: Better air movement on the bilateral upper lung area but still with decreased breath sounds on basal areas bilaterally. HEART: No chest wall abnormalities. Regular rate and rhythm with no murmurs appreciated. ABDOMEN: Abdomen is flat, soft, mildly distended with differential distention on the left of the umbilicus. Nontender on palpation. Ileostomy small amount of brown liquid stool and gas in the bag. . EXTREMITIES: No edema. Vital Signs Vital Signs Date Time Temp Pulse Resp B/P (MAP) Pulse Ox O2 Delivery O2 Flow Rate FiO2 05/16/18 12:00 99.1 86 17 157/77 (103) 96 Nasal Cannula 3.0 05/15/18 12:00 40 I&Os I&O- Last 24 Hours up to 6 AM 05/16/18 06:00 Intake Total 1500 ml Output Total 4175 ml Balance -2675 ml Laboratory Data Labs 24H Laboratory Tests 2 05/16/18 05:30: Nucleated Red Blood Cells % (auto) 0.2H, Neutrophils 76H, Band Neutrophils 2, Lymphocytes (Manual) 7L, Monocytes (Manual) 13H, Atypical Lymphocytes 2, Platelet Estimate NORMAL, Anisocytosis 1+, Anion Gap 5L, Glomerular Filtration Rate 42.3, Blood Urea Nitrogen 47H, Creatinine 1.68H, Sodium Level 145, Potassium Level 3.5, Chloride Level 102, Carbon Dioxide Level 38H, Calcium Level 8.8 CBC/BMP Laboratory Tests 05/16/18 05:30 Red Blood Count 3.20 L, Mean Corpuscular Volume 102.5 H, Mean Corpuscular He moglobin 30.6, Mean Corpuscular Hemoglobin Concent 29.9 L, Red Cell Distribution Width 12.3, Calcium Level 8.8 Microbiology Microbiology 05/12/18 Blood Culture - Preliminary, Resulted No Growth after 72 hours. All specime... 05/12/18 Blood Culture - Preliminary, Resulted No Growth after 72 hours. All specime... Impression Small bowel obstruction persistent Hypoxemia secondary to most likely aspiration As discussed yesterday we'll proceed with surgery today. I'll try to attempt laparoscopy given that his abdominal distention has gone down some though dystocia as we can complete this laparoscopically. I discussed the details of the procedure and risk and benefits to the patient including risks for bowel inj ury possible bowel resection. I've also discussed the possibility of difficulty and extubation and prolonged need for mechanical ventilation given his respiratory status. Consent was obtained from patient. Plan / VTE VTE Prophylaxis Ordered?: Yes (SQ heparin. TEDs and Sequentials.) Plan / Urinary Catheter Reason for insertion/continuin: Critical Pt monitoring SUNNY AVALOS MD May 16, 2018 13:46
[2018-05-16] MEDS ORDERED: BUPIVACAINE HCL 0.25% 30 ML VIAL As Ordered ONE ×2 (14:11→14:17)
[2018-05-16] MEDS ORDERED: fentaNYL 100 MCG/2 ML INJECTION (J3010) As Ordered ONE (14:17)
[2018-05-16] MEDS ORDERED: LIDOCAINE 1% SDV INJ 30 ML VIAL As Ordered ONE (14:17)
[2018-05-16] MEDS ORDERED: MIDAZOLAM INJ 2 MG/2 ML VIAL (J2250) As Ordered ONE ×3 (14:17→20:07)
[2018-05-16] MEDS ORDERED: PHENYLEPHRINE INJ 10MG/ML VIAL (J2370) As Ordered ONE ×3 (14:56→19:07)
[2018-05-16] MEDS ORDERED: ONDANSETRON 4MG/2ML VIAL (J2405) IV PRN (15:00)
[2018-05-16] MEDS ORDERED: MIDAZOLAM INJ 2 MG/2 ML VIAL (J2250) IV ONE (15:00)
[2018-05-16] MEDS ORDERED: fentaNYL 100 MCG/2 ML INJECTION (J3010) IV ONE (15:00)
[2018-05-16] MEDS ORDERED: EPIDURAL/PCA KEYS XX PRN (15:00)
[2018-05-16] MEDS ORDERED: METOCLOPRAMIDE INJ 10MG/2ML VIAL (J2765) IV PRN (15:00)
[2018-05-16] MEDS ORDERED: diphenhydrAMINE INJ 50MG/ML VIAL (J1200) IV PRN (15:00)
[2018-05-16] MEDS ORDERED: WALLBOXKEY XX PRN (15:00)
[2018-05-16] MEDS ORDERED: PROPOFOL 200 MG/20 ML VIAL As Ordered ONE ×2 (15:00→15:41)
[2018-05-16] MEDS ORDERED: NALOXONE INJ 0.4 MG/1 ML VIAL (J2310) IV PRN (15:00)
[2018-05-16] MEDS ORDERED: fentaNYL 250 MCG/5 ML INJECTION (J3010) As Ordered ONE (15:41)
[2018-05-16] MEDS ORDERED: dexameTHASONE 4 MG/ML 1ML VIAL (J1100) As Ordered ONE (15:41)
[2018-05-16] MEDS ORDERED: METOCLOPRAMIDE INJ 10MG/2ML VIAL (J2765) As Ordered ONE (15:41)
[2018-05-16] MEDS ORDERED: ROCURONIUM BROMIDE 50 MG/5 ML VIAL As Ordered ONE ×3 (15:41→20:32)
[2018-05-16] MEDS ORDERED: ETOMIDATE INJ 20MG/10ML VIAL As Ordered ONE (15:41)
[2018-05-16] MEDS ORDERED: SUCCINYLCHOLINE 100 MG/5 ML SYRINGE (J0330) As Ordered ONE (15:41)
[2018-05-16] MEDS ORDERED: LIDOCAINE 2% INJ 100 MG/5 ML SDV (FOR ANES.) As Ordered ONE (15:41)
[2018-05-16] MEDS ORDERED: ONDANSETRON 4MG/2ML VIAL (J2405) As Ordered ONE (15:41)
[2018-05-16] MEDS ORDERED: ZOSYN 3.375 GM VIAL (J2543) As Ordered ONE (16:53)
[2018-05-16] MEDS ORDERED: DESFLURANE 240 ML INHALANT As Ordered ONE (17:02)
[2018-05-16] MEDS ORDERED: ePHEDrine SULFATE 25 MG/5 ML(5MG/ML) SYRINGE As Ordered ONE ×2 (17:10→17:52)
[2018-05-16] MEDS ORDERED: VASOPRESSIN INJ 20 UNITS/ML VIAL As Ordered ONE (18:29)
[2018-05-16] MEDS ORDERED: CALCIUM CHLORIDE 10% 1 GM/10 ML SYR As Ordered ONE (19:00)
[2018-05-16 19:13] LABS: HEMATOCRIT 27.4 % (42.0-52.0)
[2018-05-16] MEDS ORDERED: PROPOFOL 200 MG/20 ML VIAL IV SCH (21:00)
[2018-05-16] MEDS ORDERED: fentaNYL 100 MCG/2 ML INJECTION (J3010) IV PRN (21:00)
[2018-05-16 21:24] VITALS: O2SAT 100
[2018-05-16] MEDS ORDERED: MORPHINE 4 MG/ML 1ML VIAL/SYRINGE (J2270) IV PRN (21:30)
[2018-05-16 21:31] LABS: HEMATOCRIT 33.5 % (42.0-52.0); HEMOGLOBIN 10.9 g/dl (13.5-17.5); MEAN CORPUSCULAR HGB CONC 32.5 g/dl (32.0-36.5); MEAN CORPUSCULAR VOLUME 92.3 fl (80.0-96.0); PLATELET COUNT, AUTOMATED 192 10^3/uL (150-450); RED BLOOD COUNT 3.63 10^6/uL (4.30-6.10); WHITE BLOOD COUNT 10.2 10^3/uL (4.0-10.0)
[2018-05-16] MEDS: LR 1,000 ML IV SCH (21:45)
[2018-05-16] MEDS: FENTANYL/BUPIVACAINE/NACL BAG 250 ML EPIDURAL SCH (21:49)
[2018-05-16 22:12] LABS: ALBUMIN 1.6 GM/DL (3.2-5.2); BILIRUBIN,TOTAL 1.5 MG/DL (0.2-1.0); CALCIUM LEVEL 8.4 MG/DL (8.8-10.2); CREATININE FOR GFR 1.42 MG/DL (0.70-1.30); GLOMERULAR FILTRATION RATE 51.3 (>42); MAGNESIUM LEVEL 1.8 MG/DL (1.8-2.4); POTASSIUM SERUM 4.5 MEQ/L (3.5-5.1); TOTAL PROTEIN 4.6 GM/DL (6.4-8.2)
[2018-05-16 22:23] LABS: ABG BASE EXCESS 6.3 (-2.0-2.0); ABG HCO3 30.4 MEQ/L (22.0-26.0); ABG O2 SATURATION 98.2 % (95.0-99.0); ABG PARTIAL PRESSURE CO2 42.2 mmHg (35.0-45.0); ABG PARTIAL PRESSURE O2 105.9 mmHg (75.0-100.0); ABG STANDARD HCO3 30.2 MEQ/L (22.0-26.0); ABG TOTAL CO2 31.7 MEQ/L (23.0-31.0); ABG pH (ARTERIAL) 7.476 UNITS (7.350-7.450)
[2018-05-16 22:34] VITALS: BP_SYST 101; BP_SYST 128; BP_DIAS 45; BP_DIAS 57
[2018-05-17] VITALS (42 sets, daily range): BP systolic 82–176; BP diastolic 27–95; O2SAT 100
[2018-05-17] MEDS: IPRATROPIUM 0.5MG/ALBUTEROL 2.5MG INH SOL UD 3ML (DUONEB)(J7620) NEB SCH ×6 (00:17→20:23)
[2018-05-17] MEDS ORDERED: LR 1,000 ML IV ONE ×2 (01:00→07:30)
[2018-05-17] MEDS: HEPARIN SOD (PORCINE) 5000 UNITS/ML VIAL SQ SCH ×3 (01:15→20:04)
[2018-05-17] MEDS: PIPERACILLIN/TAZOBACTAM SOD 3.375 GM in D5W MINI-BAG PLUS 50 ML IV SCH ×4 (01:16→18:08)
[2018-05-17 02:11] LABS: ABG BASE EXCESS 5.8 (-2.0-2.0); ABG HCO3 29.2 MEQ/L (22.0-26.0); ABG O2 SATURATION 96.8 % (95.0-99.0); ABG PARTIAL PRESSURE O2 84.9 mmHg (75.0-100.0); ABG STANDARD HCO3 29.7 MEQ/L (22.0-26.0); ABG TOTAL CO2 30.4 MEQ/L (23.0-31.0); ABG pH (ARTERIAL) 7.504 UNITS (7.350-7.450)
[2018-05-17 05:19] LABS: HEMATOCRIT 30.3 % (42.0-52.0); HEMOGLOBIN 10.1 g/dl (13.5-17.5); MEAN CORPUSCULAR HEMOGLOBIN 30.6 pg (27.0-33.0); MEAN CORPUSCULAR HGB CONC 33.3 g/dl (32.0-36.5); MEAN CORPUSCULAR VOLUME 91.8 fl (80.0-96.0); PLATELET COUNT, AUTOMATED 193 10^3/uL (150-450)
[2018-05-17 05:26] LABS: CALCIUM LEVEL 8.3 MG/DL (8.8-10.2); CREATININE FOR GFR 1.6 MG/DL (0.70-1.30); GLOMERULAR FILTRATION RATE 44.7 (>42); POTASSIUM SERUM 4.3 MEQ/L (3.5-5.1)
[2018-05-17 05:54] LABS: ATYPICAL LYMPH 5 % (0-5); DOHLE BODIES 1+; LYMPHOCYTES 12 % (16-52); MONOCYTES 3 % (0-8); NEUTROPHILS 80 % (35-75); PLATELET CLUMPS SMALL AMT; PLATELET ESTIMATE NORMAL (NORMAL); TOXIC GRANULATION 1+
--- NOTE | 2018-05-17 07:43 | IPNPDOC ---
Subjective General Date/Time Seen The patient was seen on 05/17/18 at 07:34. Subject Chief Complaint/History The patient is a 78-year-old male admitted with a reason for visit of Small Bowl Obstruction. Patient underwent abdominal exploration yesterday and he was found to have extensive adhesions throughout his abdomen including a loop of bowel that dropped down into an empty pelvis. This took almost 7 hours for surgery to be completed. He also had a triple-lumen catheter placed in the OR. Postoperatively he remains hemodynamically stable though he does have times where his blood pressure is soft and he received a liter of IV fluid bolus last night. He is making adequate urine. He has a small amount of output from his ileostomy. He remains intubated overnight. His bowel was been turned off and he started to wake up. Current Medications Current Medications Current Medications Albuterol Sulfate (Proventil Neb) 2.5 mg Q4HP PRN NEB SHORTNESS OF BREATH Last administered on 05/15/18at 07:01; Start 05/14/18 at 16:00 Albuterol Sulfate (Proventil Neb) 2.5 mg RQ4H NEB Last administered on 05/14/18at 15:51; Start 05/14/18 at 16:00; Stop 05/14/18 at 16:00; Status DC Albuterol/ Ipratropium (Duoneb (Ipr 0.5mg/Alb 2.5mg)) 3 ml RQ4H NEB Last administered on 05/17/18at 03:12; Start 05/17/18 at 00:00 Amlodipine Besylate (Norvasc) 5 mg DAILY PO Last administered on 05/16/18at 08:30; Start 05/13/18 at 09:00; Stop 05/16/18 at 23:33; Status DC Chlorhexidine Gluconate (Peridex Oral Rinse) SWAB/BRUSH ORAL CAVITY BID MT ; Start 05/17/18 at 09:00 Diphenhydramine HCl (Benadryl) 12.5 mg Q4HP PRN IV ITCHING; Start 05/16/18 at 15:00 Fentanyl Citrate (Sublimaze) 25 mcg Q5MP PRN IV MODERATE PAIN (PS 4-7); Start 05/16/18 at 21:00; Stop 05/16/18 at 22:30; Status DC Fentanyl/ Bupivacaine HCl 250 ml @ 8 mls/hr Q24H EPIDURAL Last administered on 05/16/18at 21:49; Start 05/16/18 at 15:00 Heparin Sodium (Porcine) (Heparin) 5,000 units Q12H SQ Last administered on 05/17/18at 01:15; Start 05/13/18 at 09:00 Home Med (Med Rec Complete!) ASDIRECTED XX ; Start 05/12/18 at 16:15; Stop 05/12/18 at 16:15; Status DC Lactated Ringer's 1,000 ml @ 150 mls/hr Q6H40M IV Last administered on 05/16/18at 21:45; Start 05/16/18 at 21:45 Lactated Ringer's 1,000 ml @ 150 mls/hr Q6H40M IV Last administered on 05/14/18at 05:03; Start 05/12/18 at 17:00; Stop 05/14/18 at 09:41; Status DC Metoclopramide HCl (REGLAN INJection) 10 mg Q6HP PRN IV NAUSEA; Start 05/16/18 at 15:00 Midazolam HCl (Versed) 2 mg Q15MP PRN IV AGITATION; Start 05/16/18 at 21:30 Morphine Sulfate (Morphine Sulfate Inj) 2 mg Q15M PRN IV MODERATE/SEVERE PAIN (PS 5-10) Last administered on 05/12/18at 16:01; Start 05/12/18 at 13:30; Stop 05/12/18 at 16:01; Status DC Morphine Sulfate (Morphine Sulfate Inj) 2 mg Q2HP PRN IV BREAKTHROUGH PAIN; Start 05/16/18 at 21:30 Morphine Sulfate (Morphine Sulfate Inj) 4 mg Q2HP PRN IV SEVERE PAIN (PS 8-10) Last administered on 05/14/18at 02:02; Start 05/12/18 at 16:15; Stop 05/16/18 at 21:33; Status DC Naloxone HCl (Narcan) 0.1 mg Q5MP PRN IV SEE LABEL COMMENTS; Start 05/16/18 at 15:00 Non-Formulary Medication (Epidural/ONCOLOGY NAVIGATOR Siren) 1 each ASDIRECTED PRN XX SEE LABEL COMMENTS; Start 05/16/18 at 15:00 Non-Formulary Medication (Siren) ASDIRECTED PRN XX SEE LABEL COMMENTS; Start 05/16/18 at 15:00 Ondansetron HCl (ZOFRAN INJection) 4 mg Q6HP PRN IV REFRACTORY NAUSEA; Start 05/16/18 at 15:00 Ondansetron HCl (ZOFRAN INJection) 4 mg Q6HP PRN IV NAUSEA OR VOMITING; Start 05/12/18 at 16:15 Pantoprazole Sodium (Protonix) 40 mg DAILY IV Last administered on 05/16/18at 08:29; Start 05/12/18 at 09:00 Piperacillin Sod/ Tazobactam Sod 3.375 gm/Dextrose 50 ml @ 50 mls/hr Q6H IV Last administered on 05/17/18at 06:04; Start 05/14/18 at 12:00 Potassium Chloride 10 meq/ IV Miscellaneous Supplies 100 ml @ 100 mls/hr 0630,0730,0830 IV Last administered on 05/14/18at 10:10; Start 05/14/18 at 06:30; Stop 05/14/18 at 12:00; Status DC Potassium Chloride 10 meq/ IV Miscellaneous Supplies 100 ml @ 100 mls/hr Q1H IV Last administered on 05/15/18at 16:38; Start 05/15/18 at 09:30; Stop 05/15/18 at 15:29; Status DC Potassium Chloride 10 meq/ IV Miscellaneous Supplies 100 ml @ 100 mls/hr Q1H IV Last administered on 05/16/18at 13:16; Start 05/16/18 at 12:00; Stop 05/16/18 at 13:59; Status DC Potassium Chloride 10 meq/ IV Miscellaneous Supplies 100 ml @ 100 mls/hr Q1H IV Last administered on 05/14/18at 21:01; Start 05/14/18 at 17:00; Stop 05/14/18 at 19:59; Status DC Potassium Chloride/Dextrose/ Sod Cl 1,000 ml @ 75 mls/hr [id number] IV Last administered on 05/16/18at 07:36; Start 05/14/18 at 06:15; Stop 05/16/18 at 21:33; Status DC Propofol (Diprivan) TITRATE TO MARJORIE 2-3 ASDIRECTED IV ; Start 05/16/18 at 21:00; Stop 05/16/18 at 22:30; Status DC Propofol 1000 mg/ IV Miscellaneous Supplies 100 ml @ 3.85 mls/hr Q24H IV ; Start 05/16/18 at 21:20 Sodium Chloride 1,000 ml @ 100 mls/hr Q10H IV ; Start 05/12/18 at 13:18; Stop 05/12/18 at 16:11; Status DC Allergies Coded Allergies: No Known Allergies (Unverified , 02/27/18) Objective Physical Examination Examination GENERAL APPEARANCE: Critically ill, opens eyes to voice prompts, moves all extremities, remains intubated. SKIN: Warm and dry. HEENT: NG tube in place. The only drained about 200 ML's last night postoperatively NECK: No obvious jugular venous distention. LUNGS:Sounds bilaterally with only mild diminished breath sounds on bilateral basal areas. No wheezing. Patient remains intubated. HEART: Regular heart rate and rhythm. ABDOMEN: Abdomen is moderately distended, soft, and quiet. Midline incision dressings are clean, dry and intact. Right-sided ileostomy self he with black tarry stool output not much air in the bag.. EXTREMITIES: No noticeable edema warm extremities. Vital Signs Vital Signs Date Time Temp Pulse Resp B/P (MAP) Pulse Ox O2 Delivery O2 Flow Rate FiO2 05/17/18 06:30 98 20 87/51 (63) 100 Ventilator 50 96/42 (60) 05/17/18 04:00 99.1 05/16/18 14:40 2 I&Os I&O- Last 24 Hours up to 6 AM 05/17/18 05:59 Intake Total 8625 ml Output Total 4535 ml Balance 4090 ml NG tube 3800 ML's preoperatively, 200 ML's overnight postoperatively Laboratory Data Labs 24H Laboratory Tests 2 05/16/18 21:15: Nucleated Red Blood Cells % (auto) 0.5H, Anion Gap 7L, Glomerular Filtration Rate 51.3, Lactic Acid Level 2.3*H, Blood Urea Nitrogen 43H, Creatinine 1.42H, Sodium Level 147H, Potassium Level 4.5#, Chloride Level 110H, Carbon Dioxide Level 30, Calcium Level 8.4L, Aspartate Amino Transf (AST/SGOT) 18, Alanine Aminotransferase (ALT/SGPT) 15, Alkaline Phosphatase 63, Total Bilirubin 1.5#H, Total Protein 4.6#L, Albumin 1.6#L, Magnesium Level 1.8, Albumin/Globulin Ratio 0.53L 05/16/18 22:18: Blood Gas Bicarbonate Standard 30.2H, Arterial Blood pH 7.476H, Arterial Blood Partial Pressure CO2 42.2, Arterial Blood Partial Pressure O2 105.9H, Arterial Blood Total CO2 31.7H, Arterial Blood HCO3 30.4H, Arterial Blood Base Excess 6 .3H, Arterial Blood Oxygen Saturation 98.2 05/17/18 01:42: Lactic Acid Followup at 4 Hours 2.3*H 05/17/18 02:02: Blood Gas Bicarbonate Standard 29.7H, Arterial Blood pH 7.504H, Arterial Blood Partial Pressure CO2 38.0, Arterial Blood Partial Pressure O2 84.9, Arterial Blood Total CO2 30.4, Arterial Blood HCO3 29.2H, Arterial Blood Base Excess 5.8H, Arterial Blood Oxygen Saturation 96.8 05/17/18 04:47: Nucleated Red Blood Cells % (auto) 0.5H, Neutrophils 80H, Lymphocytes (Manual) 12L, Monocytes (Manual) 3, Atypical Lymphocytes 5, Toxic Granulation 1+, Dohle Bodies 1+, Platelet Estimate NORMAL, Clumped Platelets SMALL AMT, Red Blood Cell Morphology NORMAL, Anion Gap 5L, Glomerular Filtration Rate 44.7, Blood Urea Nitrogen 43H, Creatinine 1.60H, Sodium Level 146H, Potassium Level 4.3, Chloride Level 110H, Carbon Dioxide Level 31, Calcium Level 8.3L CBC/BMP Laboratory Tests 05/16/18 19:00 05/16/18 21:15 Red Blood Count 3.63 L, Mean Corpuscular Volume 92.3, Mean Corpuscular Hemoglobin 30.0, Mean Corpuscular Hemoglobin Concent 32.5, Red Cell Distribution Width 13.2, Calcium Level 8.4 L, Aspartate Amino Transf (AST/SGOT) 18, Alanine Aminotransferase (ALT/SGPT) 15, Alkaline Phosphatase 63, Total Bilirubin 1.5 #H, Total Protein 4.6 #L, Albumin 1.6 #L 05/17/18 04:47 Red Blood Count 3.30 L, Mean Corpuscular Volume 91.8, Mean Corpuscular Hemoglobin 30.6, Mean Corpuscular Hemoglobin Concent 33.3, Red Cell Distribution Width 13.8, Calcium Level 8.3 L Microbiology Microbiology 05/12/18 Blood Culture - Preliminary, Resulted No Growth after 72 hours. All specime... 05/12/18 Blood Culture - Preliminary, Resulted No Growth after 72 hours. All specime... Imaging Studies Chest x-ray postoperatively No reading yet. I reviewed this myself. No pneumothorax, central line in place, that of the ET tube close to the rubia. Impression Postop day 1 after exploratory laparotomy, extensive lysis of adhesions, repair of enterotomy and serosal tears, release of bowel obstruction Acute hypoxemic respiratory failure secondary to above as well as to possible aspiration pneumonitis Acute renal failure from severe dehydration from the bowel obstruction He seems to be doing well postoperatively. His pressure sometimes soft and his CVP shows low pressure thus he most likely remains on the dry side. He has got and 1 L bolus last night. I'll give him one more liter bolus of lactated Ringer's. Hopefully he will be able to be weaned off the ventilator today. He has small amount of black stool in his ileostomy and his abdomen remains distended but soft. I will start him on TPN today anticipating a prolonged course of ileus before he regains regular bowel function given the amount of distention of the small bowel. Continue with current antibiotics for the aspiration pneumonitis. He is on epidural for postop pain control. Continue with heparin subcutaneous for DVT prophylaxis. Plan / VTE VTE Prophylaxis Ordered?: Yes (SQ heparin. TEDs and Sequentials.) Plan / Urinary Catheter Reason for insertion/continuin: Critical Pt monitoring SUNNY AVALOS MD May 17, 2018 07:43
[2018-05-17] MEDS: PROPOFOL 1,000 MG in APPROPRIATE DILUENT 1 EA IV SCH ×2 (07:48→21:07)
--- NOTE | 2018-05-17 07:49 | ROOPDOC ---
[facility] Report Of Operation Report of Operation DATE OF PROCEDURE: 05/16/18 PREPROCEDURE DIAGNOSES: Small bowel obstruction. POSTPROCEDURE DIAGNOSES: Small bowel obstruction, extensive adhesions. PROCEDURE: Diagnostic laparoscopy converted to exploratory laparotomy, extensive lysis of adhesions, release of small bowel obstruction transverse closure of small bowel enterotom(1), repair of serosal tears 6 Placement of left subclavian triple-lumen catheter SURGEON: Jerry Ontiveros MD HARDWARE ENGINEER: MD Dr. Louis Willams provided assistance to him developing the great, retract bowels, cyst with lysis of adhesions, abdominal closure. ANESTHESIA: General anesthesia. Epidural anesthesia placed preoperatively. ESTIMATED BLOOD LOSS: Approximately 300 mL. COMPLICATIONS: Patient remains intubated postoperatively. REMARKS: 70-year-old gentleman with no prior history of total abdominal colectomy with ileostomy presented with bowel obstruction, severe dehydration resulting into acute renal failure and also experiencing most likely aspiration pneumonitis with no resolution of the bowel obstruction. He is brought for abdominal exploration today. PROCEDURE NOTE: Extensive adhesions of bowel to the abdominal wall, surrounding bowels, to the retroperitoneum and the long loop of small bowel dropping down deep into the pelvis broadly adhered to the posterior and lateral pelvic sidewall with multiple points of obstruction. Mid small bowel is significantly distended, thickened. Distal small bowel that sloping down into the pelvic sidewall is decompressed. We had one recognized enterotomy. About 6 scattered areas of serosal thinning, dilatation which was repaired. DESCRIPTION OF PROCEDURE: Patient is already been receiving Zosyn 2.5 g IV every 6 hours and this was continued on its schedule time perioperatively. He was brought to the preoperative holding area and anesthesia placed an epidural catheter on his back and this was tested and noted to be covering the abdominal wall area adequately. He was then brought into the operating room, laid supine on the table. Patient came in with a Little catheter in place. SCD compression boots and teds stockings were placed for DVT prophylaxis. General endotracheal anesthesia was started. I removed the ileostomy appliance and sutured close the ileostomy with 3-0 silk. His abdomen was then prepped from sternum to pelvis and widely and both sides with Betadine. I covered the ileostomy with a medium Tegaderm. We paused for a surgical timeout using both pre-incision safety checklist to verify correct patient, procedure site and additional clinical information prior to beginning the procedure. I used a left upper quadrant and incision where a Veress needle was inserted to enter the abdomen. Intra-abdominal placement was confirmed with saline drop technique. CO2 insufflation was started to pressure 15 mmHg. Using the same incision a 5 mm Visiport was placed under direct vision laparoscope. This was changed to a 30 5 mm laparoscope. There was not much visible space in the anterior abdominal wall as the bowels are greatly distended on the upper abdomen. This also seems to be tethered, adhered to the abdominal wall with scattered weblike adhesions. He was turned on slight right lateral decubitus position where I came upon a space on the left lower quadrant area where another 5 mm port was placed under direct vision laparoscope. I switched the camera over to the side and still could not get adequate visualization. In fact the bowels moved around and covered the left upper quadrant and port site. I tried to bluntly dissect the anterior abdominal wall adhesions to free up some of the alex wel anteriorly hoping to get a glimpse of the right upper quadrant are but could not progress safely further this I positioned early to convert to open abdominal exploration. I uses previous midline incision. We started periumbilically extending this a fe w centimeters below and above the umbilicus. This was carefully taken down through the thin subcutaneous tissue and the anterior fascia. This was lifted off the underlying bowels and we carefully entered the abdomen. We were met with moderately distended loops of bowel which are broadly adhered in both sides of the abdominal wall. I started sharply lysing the adhesions on both sides of the visible loops of bowel with traction and Metzenbaum scissors. As we are able to free this off the anterior abdominal wall extended our incision both place. This process was slow and tedious. I came upon area at about the mid epigastric level where the loop of bowel that is tensely distended and is adhered broadly to the anterior abdominal wall preventing us from extending our incision superiorly. The plane between the anterior abdominal wall and the bowel was difficult to develop. We made an inadv ertent enterotomy releasing gas and black liquid enteric content from this. Drainage from the output was controlled and I used this opening to help in decompressing the bowel. I got the nasogastric tube and threaded this through the opening and suctioned off almost about 1200 ML's of enteric fluid on both ends of the enterotomy. Temporarily the opening was then controlled with Chloride forceps as we continued to lyse the adhesions from the abdominal wall as well as from its adhesions to the bowels underneath. Eventually I found the plane going towards the left upper quadrant area. We continued to lyse visible adhesions between the abdominal wall as well as between bowels. I was able to loosen up the interbowel adhesions and was able to pull up a loop of bowel to start with and freed this from underlying bowels. I followed this continually lysing the adhesions in this bowels returned to the left lower quadrant area where it seems to be tethered. I then came back to the other end of the loop of bowel and followed this up towards the right upper quadrant area until all visible bowels can be lysed free of the abdominal wall. I shifted between the upper and lower abdomen continually lysing the bowel was free from the abdominal wall and surrounding bowel mesentery shifting to areas freed up and loosened up with the previous maneuvers and stopping when the planes were difficult or dangerous to develop. I reppositioned the patient as needed to get some better visualization and traction. Eventually I was able to free up enough bowel to exteriorize and create space to lyse the bowels are tethered to the retroperitoneum. I was able to eventually free up most bowels in the left upper quadrant area and around his back and freed this from the posterior wall of the stomach which was also enlarged. This was followed to the ligament of Treitz. I followed this loop of bowel and freed up the rest of the left lower quadrant bowel adhesions to the pelvic sidewall, lateral abdominal wall into the retroperitoneum. After this I followed the loops of bowels and this led me to the right upper quadrant area and again I continued to free this up. This was lifted off the duodenum which I identified and also noted to be distended. Likewise its attachments to the lateral abdominal wall. The most difficult area tend to be the loop of bowel in the pelvis which dropped down the posterior pelvic sidewall. Patient apparently has had a full total abdominal colectomy including resection of the rectum. This the bowel drops deep down into the pelvic sidewall. The bowels here are noticeably decompressed the thickened. This leads to the right lower quadrant ileostomy. Going both antegradely and retrogradely trying to free up the bowel sounds are eventually able to get into a plane to lift the bowels of the posterior wall of the pelvis and eventually the status of the lateral sidewall of the pelvis. I followed this into the loop of ileostomy seems to be tethered slightly underneath the peritoneum on the right lateral sidewall. This was likewise freed. I then run the bowels from the ligament of treitz to the ileostomy and checked the bowel for injuries, persistent obstruction, narrowing. I identified about 6 areas where there is thinning of the abdominal wall and serosal tears. This was all repaired with 3-0 silk in Lembert fashion. The mid portions of the bowel was greatly distended and thickened. It was slightly purplish when I started but pinked up towards the end of the procedure. I milked the enteric contents back into the stomach and got about 1200 mLs from the nasogastric tube. The previous enterotomy was closed with a firing of a 75 ALESIA stapler with a blue load in a transverse fashion to prevent narrowing. This seems to adequately close the enterotomy. I checked the bowel twice retrogradely then antegradely entering lysing further the adhesions. The bowels were distended bu healthy early on its course then a significant portion was more pronouncely distended which were the portions initially encountered adhered to the anterior abdominal wall. There is a gradual decrease in distention until it reaches the loops of bowel over the right lower quadrant area and those that dropped into the pelvis which was decreased in caliber. No persistent narrowing was noted and there was gradual decrease in the caliber of bowels until it reaches into the ileostomy. The bowels were fully lysed free to the ileostomy the distal third of the bowel seems to be still contracted this is the bowel that is located deep onto the pelvic posterior lateral wall. I look for any stricturing send save for some adhesive bands which were lysed did not really find any pervasive fixed narrowing. In the bowel seems to gradually taper down to the area without any noticeable fixed narrowing. Once satisfied that no enterotomies were unrecognized the abdomen was irrigated with about 5 L of warm saline. Due to the amount of dissection of the pelvic sidewall in amount of surface I placed Tisseel glue onto that side and also left Seprafilm onto the posterior pelvic sidewall to prevent hopefully severe adhesions over the area. The bowels were then placed back into the abdomen another Seprafilm was placed on top of the bowel meeting the anterior abdominal wall. The abdominal wall was then closed with running suture of 1 double looped PDS. Subcutaneous space was a irrigated and checked for hemostasis. This was then loosely closed with abdias and I placed Telfa strips into the subcutaneous tissue is a wick to hopefully prevent abscess collection subcutaneous space. The suture and the ileostomy was then opened up. Postoperative dressings and ileostomy appliance placed. Prior to waking the patient up I placed a left subclavian triple-lumen catheter. JERRY ONTIVEROS MD May 17, 2018 07:49
--- NOTE | 2018-05-17 07:50 | POST-OPPD ---
Postoperative Procedure Note Date Of Procedure: May 16, 2018 PREPROCEDURE DIAGNOSES: Small bowel obstruction. POSTPROCEDURE DIAGNOSES: Small bowel obstruction, extensive adhesions. PROCEDURE: Diagnostic laparoscopy converted to exploratory laparotomy, extensive lysis of adhesions, release of small bowel obstruction transverse closure of small bowel enterotom(1), repair of serosal tears 6 Placement of left subclavian triple-lumen catheter SURGEON: Jerry Ontiveros MD PARTITION ASSEMBLER: MD Dr. Louis Willams provided assistance to him developing the great, retract bowels, cyst with lysis of adhesions, abdominal closure. ANESTHESIA: General anesthesia. Epidural anesthesia placed preoperatively. ESTIMATED BLOOD LOSS: Approximately 300 mL. COMPLICATIONS: Patient remains intubated postoperatively. REMARKS: 70-year-old gentleman with no prior history of total abdominal colectomy with ileostomy presented with bowel obstruction, severe dehydration resulting into acute renal failure and also experiencing most likely aspiration pneumonitis with no resolution of the bowel obstruction. He is brought for abdominal exploration today. SPECIMENS: None REPLACED: 4800 ML's IV fluids, 2 units packed RBCs DRAINS: None POSTOPERATIVE CONDITION: Patient is off pressors, hemodynamically stable but remains intubated in the postoperative care unit. JERRY ONTIVEROS MD May 17, 2018 07:50
[2018-05-17 08:00] LABS: MAGNESIUM LEVEL 1.9 MG/DL (1.8-2.4)
--- NOTE | 2018-05-17 08:27 | REP ---
Portable chest x-ray: Single view. History: Intubated patient. Comparison study: May 16, 2018. Findings: EKG electrodes are seen. Left subclavian line terminates in the expected location of the superior vena cava. NG tube enters left upper quadrant. An endotracheal tube is seen at the level of the transverse aorta. There is an epidural catheter again noted. Pleuroparenchymal opacity persists in the left lower lobe behind the heart obscuring the left hemidiaphragm and the descending aorta. Lung dong are otherwise clear. Electronically Signed by Darius Adames MD 05/17/2018 08:19 A
[2018-05-17] MEDS: LR 1,000 ML IV SCH ×2 (08:28→12:16)
[2018-05-17] MEDS: PANTOPRAZOLE 40MG INJ (PROTONIX) (C9113) IV SCH (08:30)
[2018-05-17] MEDS: CHLORHEXIDINE GLUCONATE 0.12 % 15ML UDC (PERIDEX ORAL RINSE) MT SCH ×2 (08:31→20:05)
--- NOTE | 2018-05-17 08:37 | REP ---
Portable chest x-ray: Single view. History: Intubation. Comparison chest x-ray May 13, 2018. Findings: A left subclavian line is inserted with its tip in the expected location of the superior vena cava. A nasogastric tube enters the left upper quadrant of the abdomen. Endotracheal tube is seen in good position just below the proximal clavicles. There is no evidence of pneumothorax. There is increased density in the left lower lobe distribution obscuring the descending aorta and the left hemidiaphragm. This suggests atelectasis. Some left pleural effusion is suspected as well. Mild discoid atelectasis is seen in the right base. There is an epidural catheter projecting over the lower thoracic spine. Electronically Signed by Darius Adames MD 05/17/2018 04:43 P
--- NOTE | 2018-05-17 08:48 | CCN ---
CRITICAL CARE NOTE DATE: 05/16/2018 I was asked by Dr. Ontiveros to emergently evaluate Mr. Stanley for acute hypoxemic respiratory failure leading to mechanical ventilation. Mr. Stanley is a 78-year-old male with a past medical history notable for several cancers including colorectal for which he had colectomy with formation of ileostomy. He has had several admissions previously for small bowel obstruction, but those had resolved with nonoperative therapy. He again presented with abdominal discomfort and vomiting on the of this month. In addition he had severe dehydration. An nasogastric (NG) tube was placed and he was re-hydrated. Initially he appeared to improve with this management, but then failed to make any further progression and it was decided that he needed surgery for his small bowel obstruction. Other difficulties during this admission included an episode on Tuesday where it was felt that he has experienced an aspiration pneumonitis. His chest CT scan had shown bibasilar atelectasis with a small right region of opacity consistent with a pneumonitis. He had already been started on antibiotics and he was treated with aspiration precautions as well as hyperinflation therapy. This afternoon he was taken to the operating room with plans to try to decompress him laparoscopically. That had to be converted to a general laparotomy. Throughout most of the surgery he required vasopressor support with phenylephrine, but that was weaned off by the time that he arrived in the post-anesthesia care unit (PACU). It was not felt that he was extubatable and in fact was paralyzed on leaving the operating room. During the procedure he received 800 mL of packed red blood cells (PRBC) and 5600 of lactated ringers (LR), output included 2000 gastric and 350 mL of urine in the operating room and 160 mL of urine in the post-anesthesia care unit (PACU). In addition to his surgery he had a left subclavian triple lumen placed and an epidural had been placed. PAST MEDICAL HISTORY: 1. Hypertension. 2. History of rectal cancer, status post colectomy with ileostomy. 3. Perianal hernia. 4. History of lymphoma. 5. History of chronic pelvic pain. 6. Recent diagnosis of paratesticular leiomyosarcoma. a. Status post left radial orchiectomy. 7. History of status post left eyelid surgery. 8. History of tobacco usage, cessation in 1971. ALLERGIES: No known drug allergies. MEDICATIONS AT THE TIME OF SURGERY: Include: - albuterol nebulization every 4 hours as needed - amlodipine 5 mg by mouth every day - heparin 5000 units subcutaneous every 12 hours - morphine as needed - Zofran as needed - Protonix 40 mg IV daily - Zosyn 3.375 grams every 6 hours HOME MEDICATIONS NOT INCLUDED INPATIENT: Include: - hydrochlorothiazide with triamterene 37.5/25 mg one by mouth every day - multivitamin one by mouth every day - tramadol 50 mg by mouth twice a day as needed - acetaminophen/codeine 300/30 two tablets by mouth every 6 hours as needed SOCIAL HISTORY, FAMILY HISTORY, AND REVIEW OF SYSTEMS: Not obtainable secondary to intubation. On review of the chart he only used alcohol occasionally. PHYSICAL EXAMINATION: GENERAL: Mr. Stanley is a intubated, paralyzed, and sedated. VITAL SIGNS: Temperature 96.3, pulse 84, respiratory rate 16, blood pressure 135/49 with an MAP of 77, SpO2 100% on FiO2 .5. HEENT: Anicteric, pupils 2 mm and reactive, nares: Patent bilaterally. NG tube in place. Oropharynx edentulous. ET tube in place, moist mucosa. NECK: Trachea is midline, without apparent thyromegaly. No apparent JVD. LYMPH: Without cervical or supraclavicular lymphadenopathy. LUNGS: Symmetric excursion, good air entry, no wheezing, rhonchi, or crackle and tidal excursion, diminished breath sounds in the bases posteriorly bilaterally. Normal I:E. CARDIOVASCULAR: Regular rate and rhythm with a normal S1, S2, no murmur, rub, or gallop appreciated. ABDOMEN: Absent bowel sounds, soft, midline dressing clean and dry, ileostomy with viable mucosa. EXTREMITIES: Without clubbing, cyanosis, or edema. Palpable pedal pulses bilaterally. LABORATORY DATA: CBC postoperatively showed a hemoglobin of 10.9, hematocrit 33.5, platelet count 192,000, and a white blood cell count 10,200. Chemistries postoperatively showed a sodium 147, potassium 4.5, chloride 110, bicarbonate 30, anion gap 7, BUN 43, creatinine 1.4, glucose 187, calcium 8.4, magnesium 1.8, total bilirubin 1.5, AST 18, ALT 15, alkaline phosphatase 63, total protein 4.6, albumin 1.6. Lactic acid 2.3. Arterial blood gas, PRVC with total volume of 500, rate 16, PEEP of 5, and an FiO2 of .5 with 7.48/42/106 with a measured saturation of 98% and a base excess of 6.3. I reviewed his chest x-ray postoperatively. That showed normal appearing cardiac silhouette and pulmonary vascular shadows. There was minimal bibasilar fibroatelectasis. The ET tube is in good position as was the left subclavian triple lumen catheter. IMPRESSION: 1. Acute respiratory failure postoperatively leading to mechanical ventilation. 2. Postoperative day 0 status post exploratory laparotomy with lysis of adhesions. 3. Aspiration pneumonitis, clearing. 4. Hypertension at baseline. 5. Status post recent diagnoses of paratesticular leiomyosarcoma. RECOMMENDATIONS: 1. We will continue supportive care with mechanical ventilation. 2. We will use propofol and as needed versed for sedation. 3. Mr. Stanley has an epidural which should manage the majority of this pain. We will also allow for an as needed morphine dosage. Hopefully this will no be needed and all of his pain can be managed by the epidural. 4. We will use DuoNebs every 4 hours while intubated. He is does not require this medication group home. He had been started on albuterol to help with the mucociliary escalator with his hyperinflation therapy, again a medication he does not require group home. 5. We will monitor central venous pressure (CVP). 6. Anticipate that he may require fluid boluses overnight. If a vasopressor is required we will use Levophed. He is currently on LR at 150 mL per hour. 7. I have spoken with Dr. Ontiveros and his plan is to start total parenteral nutrition (TPN) tomorrow. 8. Agree with continuing on Zosyn. 9. Will hold antihypertensive medications in the immediate postoperative time. CRITICAL CARE TIME: 50 minutes not including procedure time. TANNER
[2018-05-17] MEDS: ACETAMINOPHEN 325 MG/10.15 ML UDC GT PRN ×3 (09:23→17:38)
[2018-05-17 09:37] LABS: CK-MB VALUE MASS < 1.0 NG/ML (<3.6); CPK CREATINE PHOSPHOKINASE 180 U/L (39-308); MB/CK RELATIVE INDEX 0.56 (< OR =4); TROPONIN I 0.03 NG/ML (< 0.10)
[2018-05-17] MEDS: FENTANYL/BUPIVACAINE/NACL BAG 250 ML EPIDURAL SCH (17:59)
[2018-05-17] MEDS ORDERED: MULTIVITAMIN -ADULT INJECTION 10 ML, CR/CU/SE/MN/ZN INJ 1 ML in AMINO AC/ELECTROLYTE/DE... IV SCH (18:00)
[2018-05-17] MEDS ORDERED: FAT EMULSION IV 20% 500 ML IV SCH (18:00)
[2018-05-17] MEDS: HumaLOG INSULIN (NovoLOG) PER UNIT SC SCH (18:08)
--- NOTE | 2018-05-17 20:01 | CCN ---
CRITICAL CARE NOTE DATE: 05/17/2018 Mr. Stanley remains critically ill with acute respiratory failure postoperatively. His central venous pressure (CVP), not unsurprisingly, decreased to 4 yesterday evening associated with decreased blood pressure which responded to fluid bolus. On his sedation vacation this morning, he is alert and following commands. He indicates that he would like the endotracheal tube removed. He indicates his pain is under good control. No significant secretions. PHYSICAL EXAMINATION: GENERAL: Mr. Stanley is intubated and synchronous with a ventilator. VITAL SIGNS: Temperature 99.1 which is his T-max. Blood pressure 94/53 with a mean arterial pressure (MAP) of 67, pulse 93, respiratory rate 18, SpO2 100% on FiO2 of 0.3. HEENT: Anicteric, pupils 2 mm and reactive. Nares: Patent bilaterally. NG tube in place. Oropharynx clear, no lesions, ET tube in place. NECK: Supple, without jugular venous distention (JVD), without thyromegaly or mass, trachea is midline. LYMPH: Without cervical or supraclavicular lymphadenopathy. LUNGS: Symmetric excursion, good air entry, no wheeze, rhonchi, or crackle and tidal excursion, diminished breath sounds posteriorly bilaterally. Normal I:E. No accessory muscle usage or retractions. CARDIOVASCULAR: Regular rate and rhythm with a normal S1, S2, no murmur, rub, or gallop appreciated. ABDOMEN: Absent bowel sounds, soft, midline dressing clean and dry, ostomy patent. EXTREMITIES: Without clubbing, cyanosis, or edema. Palpable pedal pulses bilaterally. LABORATORY DATA: CBC from this morning showed a hemoglobin of 10.1, hematocrit 30.3, platelet count 193,000, white blood cell count 11,000 with a differential of 80%, neutrophils and 12% lymphocytes. Chemistry show sodium 146, potassium 4.3, chloride 110, bicarbonate 31, anion gap 5, BUN 43, with creatinine 1.6, glucose 163, calcium 8.3, magnesium 1.9, lactate 1.9. Troponin I 0.03. Arterial blood gas on [facility] is 7.50/38/85 with measured saturation of 97%. It should be noted this blood gas was from 02:02. I reviewed his chest x-ray as well as the report from earlier today. That x-ray showed normal appearing cardiac silhouette and pulmonary vascular shadows. Normal appearing mediastinum and hilar regions. The left hemidiaphragm is partially obscured. Endotracheal tube is in good position. IMPRESSION: 1. Acute respiratory failure, postoperatively. 2. Postoperative day 1 status post exploratory laparotomy with lyses of adhesions. 3. Recent aspiration pneumonitis, clearing. 4. Hypertension, at baseline. 5. Status post recent diagnosis of paratesticular leiomyosarcoma. 6. Deep vein thrombosis (DVT) prophylaxis with sequential compression device (SCD) and TEDs. 7. Stress ulcer prophylaxis in place with proton pump inhibitor. 8. Infectious disease. On Zosyn. 9. Nutrition. Starting total parenteral nutrition (TPN). RECOMMENDATIONS: 1. Will continue supportive care. 2. Dr. Ontiveros is going to write for total parenteral nutrition (TPN) today. 3. Will proceed with a weaning trial. ADDENDUM: 1. Mr. Stanley went on for a weaning trial with pressure support of 5 and PEEP of 5 for approximately 40 minutes. Unfortunately his rapid shallow breathing index was typically in the 120s to 130s, which does not predict success. He was therefore changed back to full control which was pressure support of 15 and PEEP of 5. (This is pressure control without a rate). 2. I returned 3 hours later and performed a second trial at bedside. He again failed with a rapid shallow breathing index in the 120s and 130s and he again was returned to a pressure support of 15 and a PEEP of 5. Critical care time: 50 minutes not including procedure time. [facility] HOSPITALFabrizio
[2018-05-17] MEDS: MIDAZOLAM INJ 2 MG/2 ML VIAL (J2250) IV PRN ×2 (20:24→22:06)
[2018-05-18] VITALS (27 sets, daily range): BP systolic 104–160; BP diastolic 54–74; O2SAT 95–100
[2018-05-18] MEDS: MIDAZOLAM INJ 2 MG/2 ML VIAL (J2250) IV PRN ×3 (00:32→04:02)
[2018-05-18] MEDS: HumaLOG INSULIN (NovoLOG) PER UNIT SC SCH ×5 (00:33→23:39)
[2018-05-18] MEDS: PIPERACILLIN/TAZOBACTAM SOD 3.375 GM in D5W MINI-BAG PLUS 50 ML IV SCH ×5 (00:34→23:39)
[2018-05-18] MEDS: IPRATROPIUM 0.5MG/ALBUTEROL 2.5MG INH SOL UD 3ML (DUONEB)(J7620) NEB SCH ×4 (00:56→11:08)
[2018-05-18] MEDS: ACETAMINOPHEN 325 MG/10.15 ML UDC GT PRN ×4 (01:57→15:14)
--- NOTE | 2018-05-18 03:26 | IPNPDOC ---
Subjective Date Seen The patient was seen on 05/17/18. Subjective Chief Complaint/HPI Patient seen and examined at bedside. Status-post ex lap, lysis of adhesions, and release of bowel obstruction post-op day #1. Is also status-post 2 units of PRBCs that were transfused at 20:09 on 05/16/18. Is resting comfortably in bed on ventilator. ROS unobtainable. However, does respond to voice and does follow commands. Able to wiggle toes. General: Reports: ROS Unobtainable (is on ventilator and unable to verbally communicate) Objective Physical Examination General Exam: Positive: Alert, Cooperative, No Acute Distress, Other (on ventilator for respiratory support) Eye Exam: Positive: Conjunctiva & lids normal; Negative: Sclera icteric ENT Exam: Positive: Atraumatic; Negative: Other ENT (his mucous membranes are still moderately dry) Neck Exam: Positive: Supple Chest Exam: Positive: Clear to auscultation, Normal air movement; Negative: Rales, Rhonchi, Wheezing Heart Exam: Positive: Rate Normal, Regular Rhythm, Normal S1, Normal S2; Negative: Murmurs Abdomen Exam: Positive: BS Hypoactive, Soft (but distended abdomen), Tenderness (diffusely) Extremity Exam: Negative: Clubbing, Cyanosis, Edema Skin Exam: Negative: Rash Neuro Exam: Positive: Other (able to follow commands and wiggle toes. ) Assessment /Plan Problems (1) Acute respiratory failure with hypoxia Status: Acute Response to Treatment: Stable Problem Text: 05/17: Patient went into acute hypoxic respiratory failure status-post surgery yesterday. Was intubated and placed on mechanical ventilation. Dr. Hays will be trying to wean patient to assess weather his SBI will go to <104 and if patient can take deep and slow breaths which would indicate success if patient were to be extubated. She will determine this today. He may be able to be extubated either today or tomorrow. (2) Status post exploratory laparotomy Status: Acute Response to Treatment: Stable Problem Text: 05/17: Patient is status-post exploratory laparotomy, lysis of adhesions, repair of enterotomy and serosal tears, release of bowel obstruction post-op day #1. Apparently, surgery took around 7 hours and patient is in need of ventilator support at this time post-surgery. General surgery is following and managing the SBO and Alloy Weigher is consulted to help further manage respiratory support. (3) SBO (small bowel obstruction) Status: Acute Response to Treatment: Improving Discussed With: Nurse, Program Manager, Patient, Family with Pt Consent Problem Specific Plan: Monitor Clinically Problem Text: 05/17: Status-post exp laparotomy, lysis of adhesions, and release of bowel obstruction post-operative day 1. Is on epidural fentanyl for post-operative pain control. TPN will be started by Dr. Ontiveros today and there is anticipated prolonged course of ileus until return of normal bowel function. This problem is being managed by Dr. Ontiveros of surgery. He seems to be making some improvement with the NG tube drainage, but is still pretty uncomfortable. Will defer to surgery for further management of this problem. (4) Acute kidney injury Status: Acute Response to Treatment: Worse Discussed With: Nurse, Program Manager, Patient, Family with Pt Consent Problem Specific Plan: Repeat Labs Problem Text: 05/17: Creatinine bumped up to 1.60 today with GFR lower at 44.7 from yesterday and is likely from severe dehydration from bowel obstruction. Will continue to monitor BMP and continue IV hydration as necessary. His BUN is down a little, but his creatinine is up. Overall his GFR is down a little more today. Will continue the IV hydration and monitor. I believe that he was significantly dehydrated by the time he was admitted. (5) Aspiration pneumonitis Status: Acute Problem Text: 05/17: Likely secondary from reflux of gastric contents/secretions from NG tube. Continue zosyn. Day #4. (6) Cough Status: Acute Discussed With: Patient, Family with Pt Consent Problem Specific Plan: Monitor Clinically, Repeat Tests Problem Text: His daughter has some concerns about a cough that is productive of scant sputum/mucus. I did not observe this, my exam is relatively benign, and his WBC are lower today. None, the less he is at high risk for a pneumonia as his distended abdomen may make it harder for him to take a truly deep breath and he is in bed most of the time. I decided to order a CXR today to clarify the need for further abx (he got one dose in the ER, but they were not continued on admission). (7) Hypertension Status: Chronic Response to Treatment: Stable Problem Specific Plan: Monitor Clinically Problem Text: 05/17: BP well controlled without any antihypertensives. At this time, will hold any antihypertensives. His BP is well controlled at this time. Continue current regimen. Plan/VTE VTE Prophylaxis Ordered?: Yes (SQ heparin. TEDs and Sequentials.) Plan/Urinary Catheter Reason for insertion/continuin: Critical Pt monitoring Plan IVF: Decrease Medications: Replete Electrolytes IV VS, I&O, 24H, Fishbone Vital Signs/I&O Vital Signs Date Time Temp Pulse Resp B/P (MAP) Pulse Ox O2 Delivery O2 Flow Rate FiO2 05/17/18 16:00 12 30 05/17/18 15:30 102 117/58 (77) 97 Ventilator 158/54 (88) 05/17/18 14:00 99.8 05/16/18 14:40 2 I&O- Last 24 Hours up to 6 AM 05/17/18 06:00 Intake Total 9375 ml Output Total 4710 ml Balance 4665 ml Laboratory Data 24H LABS Laboratory Tests 2 05/16/18 21:15: Nucleated Red Blood Cells % (auto) 0.5H, Anion Gap 7L, Glomerular Filtration Rate 51.3, Lactic Acid Level 2.3*H, Blood Urea Nitrogen 43H, Creatinine 1.42H, Sodium Level 147H, Potassium Level 4.5#, Chloride Level 110H, Carbon Dioxide Level 30, Calcium Level 8.4L, Aspartate Amino Transf (AST/SGOT) 18, Alanine Aminotransferase (ALT/SGPT) 15, Alkaline Phosphatase 63, Total Bilirubin 1.5#H, Total Protein 4.6#L, Albumin 1.6#L, Magnesium Level 1.8, Albumin/Globulin Ratio 0.53L 05/16/18 22:18: Blood Gas Bicarbonate Standard 30.2H, Arterial Blood pH 7.476H, Arterial Blood Partial Pressure CO2 42.2, Arterial Blood Partial Pressure O2 105.9H, Arterial Blood Total CO2 31.7H, Arterial Blood HCO3 30.4H, Arterial Blood Base Excess 6.3H, Arterial Blood Oxygen Saturation 98.2 05/17/18 01:42: Lactic Acid Followup at 4 Hours 2.3*H 05/17/18 02:02: Blood Gas Bicarbonate Standard 29.7H, Arterial Blood pH 7.504H, Arterial Blood Partial Pressure CO2 38.0, Arterial Blood Partial Pressure O2 84.9, Arterial Blood Total CO2 30.4, Arterial Blood HCO3 29.2H, Arterial Blood Base Excess 5.8H, Arterial Blood Oxygen Saturation 96.8 05/17/18 04:47: Nucleated Red Blood Cells % (auto) 0.5H, Neutrophils 80H, Lymphocytes (Manual) 12L, Monocytes (Manual) 3, Atypical Lymphocytes 5, Toxic Granulation 1+, Dohle Bodies 1+, Platelet Estimate NORMAL, Clumped Platelets SMALL AMT, Red Blood Cell Morphology NORMAL, Anion Gap 5L, Glomerular Filtration Rate 44.7, Blood Urea Nitrogen 43H, Creatinine 1.60H, Sodium Level 146H, Potassium Level 4.3, Chloride Level 110H, Carbon Dioxide Level 31, Calcium Level 8.3L, Magnesium Level 1.9 05/17/18 08:10: Lactic Acid Level 1.9, Total Creatine Kinase 180, Creatine Kinase MB < 1.0, Creatine Kinase MB Relative Index 0.56, Troponin I 0.03 05/17/18 17:44: Bedside Glucose (Misc Panel) 152H CBC/BMP Laboratory Tests 05/16/18 19:00 05/16/18 21:15 Red Blood Count 3.63 L, Mean Corpuscular Volume 92.3, Mean Corpuscular Hemoglobin 30.0, Mean Corpuscular Hemoglobin Concent 32.5, Red Cell Distribution Width 13.2, Calcium Level 8.4 L, Aspartate Amino Transf (AST/SGOT) 18, Alanine Aminotransferase (ALT/SGPT) 15, Alkaline Phosphatase 63, Total Bilirubin 1.5 #H, Total Protein 4.6 #L, Albumin 1.6 #L 05/17/18 04:47 Red Blood Count 3.30 L, Mean Corpuscular Volume 91.8, Mean Corpuscular Hemoglobin 30.6, Mean Corpuscular Hemoglobin Concent 33.3, Red Cell Distribution Width 13.8, Calcium Level 8.3 L Microbiology Microbiology 05/12/18 Blood Culture - Final, Complete NO GROWTH AFTER 5 DAYS 05/12/18 Blood Culture - Final, Complete NO GROWTH AFTER 5 DAYS GME ATTESTATION GME ATTESTATION My faculty preceptor for this patient encounter was Dr. Clay Sousa, and was physically present during the encounter and was fully available. All aspects of the patient interview, examination, medical decision making process, and medical care plan development were reviewed and approved by the faculty preceptor. The faculty preceptor is aware and concurs with the plan as stated in the body of this note and will attest to such by his/her cosignature. BERYL JO DO May 17, 2018 18:58
[2018-05-18 05:09] LABS: ALBUMIN 1.3 GM/DL (3.2-5.2); BILIRUBIN,TOTAL 1.4 MG/DL (0.2-1.0); CALCIUM LEVEL 8.1 MG/DL (8.8-10.2); CREATININE FOR GFR 1.52 MG/DL (0.70-1.30); GLOMERULAR FILTRATION RATE 47.5 (>42); POTASSIUM SERUM 3.2 MEQ/L (3.5-5.1); TOTAL PROTEIN 4.4 GM/DL (6.4-8.2)
[2018-05-18 05:11] LABS: HEMATOCRIT 25.5 % (42.0-52.0); HEMOGLOBIN 8.3 g/dl (13.5-17.5); MEAN CORPUSCULAR HEMOGLOBIN 30.4 pg (27.0-33.0); MEAN CORPUSCULAR HGB CONC 32.5 g/dl (32.0-36.5); MEAN CORPUSCULAR VOLUME 93.4 fl (80.0-96.0); PLATELET COUNT, AUTOMATED 152 10^3/uL (150-450); RED BLOOD COUNT 2.73 10^6/uL (4.30-6.10); WHITE BLOOD COUNT 12.8 10^3/uL (4.0-10.0)
[2018-05-18 06:06] LABS: ABG HCO3 31.4 MEQ/L (22.0-26.0); ABG O2 SATURATION 93.2 % (95.0-99.0); ABG PARTIAL PRESSURE CO2 44.4 mmHg (35.0-45.0); ABG PARTIAL PRESSURE O2 66.2 mmHg (75.0-100.0); ABG STANDARD HCO3 30.8 MEQ/L (22.0-26.0); ABG TOTAL CO2 32.8 MEQ/L (23.0-31.0); ABG pH (ARTERIAL) 7.468 UNITS (7.350-7.450)
--- NOTE | 2018-05-18 08:37 | IPNPDOC ---
Subjective General Date/Time Seen The patient was seen on 05/18/18 at 08:08. Subject Chief Complaint/History The patient is a 78-year-old male admitted with a reason for visit of Small Bowl Obstruction. Patient remains intubated, has been receiving Tylenol every 4 hours with some low-grade fever. Otherwise nasogastric tube output has decreased and he has a small amount of ileostomy output. He remains hemodynamically stable, making good amount of urine Current Medications Current Medications Current Medications Acetaminophen (Tylenol Suspension) 650 mg Q4HP PRN GT PAIN OR FEVER Last administered on 05/18/18at 06:11; Start 05/17/18 at 09:15 Albuterol Sulfate (Proventil Neb) 2.5 mg Q4HP PRN NEB SHORTNESS OF BREATH Last administered on 05/15/18at 07:01; Start 05/14/18 at 16:00 Albuterol Sulfate (Proventil Neb) 2.5 mg RQ4H NEB Last administered on 05/14at 15:51; Start 05/14/18 at 16:00; Stop 05/14/18 at 16:00; Status DC Albuterol/ Ipratropium (Duoneb (Ipr 0.5mg/Alb 2.5mg)) 3 ml RQ4H NEB Last administered on 05/18/18at 07:50; Start 05/17/18 at 00:00 Amlodipine Besylate (Norvasc) 5 mg DAILY PO Last administered on 05/16/18at 08:30; Start 05/13/18 at 09:00; Stop 05/16/18 at 23:33; Status DC Chlorhexidine Gluconate (Peridex Oral Rinse) SWAB/BRUSH ORAL CAVITY BID MT Last administered on 05/17/18at 20:05; Start 05/17/18 at 09:00 Diphenhydramine HCl (Benadryl) 12.5 mg Q4HP PRN IV ITCHING; Start 05/16/18 at 15:00 Fat Emulsion Intravenous 500 ml @ 20 mls/hr ONCE@1800 IV Last administered on 05/17/18at 17:38; Start 05/17/18 at 18:00; Stop 05/18/18 at 17:59 Fentanyl Citrate (Sublimaze) 25 mcg Q5MP PRN IV MODERATE PAIN (PS 4-7); Start 05/16/18 at 21:00; Stop 05/16/18 at 22:30; Status DC Fentanyl/ Bupivacaine HCl 250 ml @ 8 mls/hr Q24H EPIDURAL Last administered on 05/17/18at 17:59; Start 05/16/18 at 15:00 Heparin Sodium (Porcine) (Heparin) 5,000 units Q12H SQ Last administered on 05/17/18at 20:04; Start 05/13/18 at 09:00 Home Med (Med Rec Complete!) ASDIRECTED XX ; Start 05/12/18 at 16:15; Stop 05/12/18 at 16:15; Status DC Insulin Human Lispro (HumaLOG INSULIN) See Protocol Table Q6H SC Last administered on 05/18/18at 06:12; Start 05/17/18 at 18:00; Stop 05/18/18 at 12:01 Lactated Ringer's 1,000 ml @ 150 mls/hr Q6H40M IV Last administered on 05/17/18at 12:16; Start 05/16/18 at 21:45; Stop 05/17/18 at 17:56; Status DC Lactated Ringer's 1,000 ml @ 150 mls/hr Q6H40M IV Last administered on 05/14/18at 05:03; Start 05/12/18 at 17:00; Stop 05/14/18 at 09:41; Status DC Metoclopramide HCl (REGLAN INJection) 10 mg Q6HP PRN IV NAUSEA; Start 05/16/18 at 15:00 Midazolam HCl (Versed) 2 mg Q15MP PRN IV AGITATION Last administered on 05/18/18at 04:02; Start 05/16/18 at 21:30 Morphine Sulfate (Morphine Sulfate Inj) 2 mg Q15M PRN IV MODERATE/SEVERE PAIN (PS 5-10) Last administered on 05/12/18at 16:01; Start 05/12/18 at 13:30; Stop 05/12/18 at 16:01; Status DC Morphine Sulfate (Morphine Sulfate Inj) 2 mg Q2HP PRN IV BREAKTHROUGH PAIN; Start 05/16/18 at 21:30; Stop 05/17/18 at 09:11; Status DC Morphine Sulfate (Morphine Sulfate Inj) 4 mg Q2HP PRN IV SEVERE PAIN (PS 8-10) Last administered on 05/14/18at 02:02; Start 05/12/18 at 16:15; Stop 05/16/18 at 21:33; Status DC Multivitamins 10 ml/Chromium/ Copper/Manganese/ Seleni/Zn 1 ml/ Amino Ac/Electrol/ Dextrose/Calcium 2,011 ml @ 80 mls/hr ONCE@1800 IV Last administered on 05/17/18at 17:38; Start 05/17/18 at 18:00; Stop 05/18/18 at 17:59 Naloxone HCl (Narcan) 0.1 mg Q5MP PRN IV SEE LABEL COMMENTS; Start 05/16/18 at 15:00 Non-Formulary Medication (Epidural/SOLUTIONS OPERATOR [place]) 1 each ASDIRECTED PRN XX SEE LABEL COMMENTS; Start 05/16/18 at 15:00 Non-Formulary Medication ([place]) ASDIRECTED PRN XX SEE LABEL COMMENTS; Start 05/16/18 at 15:00 Ondansetron HCl (ZOFRAN INJection) 4 mg Q6HP PRN IV REFRACTORY NAUSEA; Start 05/16/18 at 15:00 Ondansetron HCl (ZOFRAN INJection) 4 mg Q6HP PRN IV NAUSEA OR VOMITING; Start 05/12/18 at 16:15 Pantoprazole Sodium (Protonix) 40 mg DAILY IV Last administered on 05/17/18at 08:30; Start 05/12/18 at 09:00 Piperacillin Sod/ Tazobactam Sod 3.375 gm/Dextrose 50 ml @ 50 mls/hr Q6H IV Last administered on 05/18/18at 06:11; Start 05/14/18 at 12:00 Potassium Chloride 10 meq/ IV Miscellaneous Supplies 100 ml @ 100 mls/hr [id number] IV Last administered on 05/14/18at 10:10; Start 05/14/18 at 06:30 ; Stop 05/14/18 at 12:00; Status DC Potassium Chloride 10 meq/ IV Miscellaneous Supplies 100 ml @ 100 mls/hr Q1H IV Last administered on 05/15/18at 16:38; Start 05/15/18 at 09:30; Stop 05/15/18 at 15:29; Status DC Potassium Chloride 10 meq/ IV Miscellaneous Supplies 100 ml @ 100 mls/hr Q1H IV Last administered on 12/11/18at 13:16; Start 05/16/18 at 12:00; Stop 05/16/18 at 13:59; Status DC Potassium Chloride 10 meq/ IV Miscellaneous Supplies 100 ml @ 100 mls/hr Q1H IV ; Start 05/18/18 at 08:00; Stop 05/18/18 at 11:59 Potassium Chloride 10 meq/ IV Miscellaneous Supplies 100 ml @ 100 mls/hr Q1H IV Last administered on 05/14/18at 21:01; Start 05/14/18 at 17:00; Stop 05/14/18 at 19:59; Status DC Potassium Chloride/Dextrose/ Sod Cl 1,000 ml @ 75 mls/hr [id number] IV Last administered on 05/16/18at 07:36; Start 05/14/18 at 06:15; Stop 05/16/18 at 21:33; Status DC Propofol (Diprivan) TITRATE TO MARJORIE 2-3 ASDIRECTED IV ; Start 05/16/18 at 21:00; Stop 05/16/18 at 22:30; Status DC Propofol 1000 mg/ IV Miscellaneous Supplies 100 ml @ 3.85 mls/hr Q24H IV ; Start 05/16/18 at 21:20 Sodium Chloride 1,000 ml @ 100 mls/hr Q10H IV ; Start 05/12/18 at 13:18; Stop 05/12/18 at 16:11; Status DC Allergies Coded Allergies: No Known Allergies (Unverified , 02/27/18) Objective Physical Examination Examination GENERAL APPEARANCE: Intubated, moves spontaneously, opens eyes to voice prompts. SKIN: Warm and dry. HEENT: Nasogastric tube with light greenish bilious output, working in place. Lips dry.. NECK: Supple, no thyromegaly. No obvious jugular venous distention. LUNGS: Relatively clear to auscultation anteriorly with decreased breath sounds on posterior bilateral bases left moderate right no wheezing. HEART: Regular heart rate and rhythm. ABDOMEN: Abdomen is seems more distended today, soft, tympanitic to percussion. Dressings remained clean and dry. Ileostomy with black tarry-appearing output. EXTREMITIES: Mild lower extremity edema. Vital Signs Vital Signs Date Time Temp Pulse Resp B/P (MAP) Pulse Ox O2 Delivery O2 Flow Rate FiO2 05/18/18 07:51 95 Ventilator 30 05/18/18 07:51 23 05/18/18 06:00 99.0 95 138/64 (88) 05/16/18 14:40 2 I&Os I&O- Last 24 Hours up to 6 AM 05/18/18 05:59 Intake Total 4450 ml Output Total 2245 ml Balance 2205 ml NG tube 800 ML's yesterday, 300 ML's overnight Ileostomy 180 ML's yesterday Laboratory Data Labs 24H Laboratory Tests 2 05/17/18 08:10: Lactic Acid Level 1.9, Total Creatine Kinase 180, Creatine Kinase MB < 1.0, Creatine Kinase MB Relative Index 0.56, Troponin I 0.03 05/17/18 17:44: Bedside Glucose (Misc Panel) 152H 05/18/18 00:12: Bedside Glucose (Misc Panel) 180H 05/18/18 04:27: Nucleated Red Blood Cells % (auto) 0.2H, Blood Gas Bicarbonate Standard 30.8H, Arterial Blood pH 7.468H, Arterial Blood Partial Pressure CO2 44.4, Arterial Blood Partial Pressure O2 66.2L, Arterial Blood Total CO2 32.8H, Arterial Blood HCO3 31.4H, Arterial Blood Base Excess 7.0H, Arterial Blood Oxygen Saturation 93.2L, Anion Gap 5L, Glomerular Filtration Rate 47.5, Blood Urea Nitrogen 38H, Creatinine 1.52H, Sodium Level 149H, Potassium Level 3.2#L, Chloride Level 112H, Carbon Dioxide Level 32, Calcium Level 8.1L, Aspartate Amino Transf (AST/SGOT) 20, Alanine Aminotransferase (ALT/SGPT) 13, Alkaline Phosphatase 47, Total Bilirubin 1.4H, Total Protein 4.4L, Albumin 1.3L, Magnesium Level 2.0, Albumin/Globulin Ratio 0.42L 05/18/18 06:04: Bedside Glucose (Misc Panel) 200H CBC/BMP Laboratory Tests 05/18/18 04:27 Red Blood Count 2.73 L, Mean Corpuscular Volume 93.4, Mean Corpuscular Hemoglobin 30.4, Mean Corpuscular Hemoglobin Concent 32.5, Red Cell Distribution Width 14.0, Calcium Level 8.1 L, Aspartate Amino Transf (AST/SGOT) 20, Alanine Aminotransferase (ALT/SGPT) 13, Alkaline Phosphatase 47, Total Bilirubin 1.4 H, Total Protein 4.4 L, Albumin 1.3 L Microbiology Microbiology 05/12/18 Blood Culture - Final, Complete NO GROWTH AFTER 5 DAYS 05/12/18 Blood Culture - Final, Complete NO GROWTH AFTER 5 DAYS Impression Postop day 2 after exploratory laparotomy, extensive lysis of adhesions, repair of enterotomy and serosal tears, release of bowel obstruction Acute hypoxemic respiratory failure secondary to above as well as to possible aspiration pneumonitis Acute renal failure from severe dehydration from the bowel obstruction Electrolyte derangements, hypokalemia from the NG tube losses. Hopefully we will be able to successfully wean him off the ventilator and extubate him today. I will continue him on TPN. I added some insulin and potassium to the bag. He seems to be self diuresing. I have cut down on IV fluids. Remains hypoalbuminemic He's been having continued low-grade fever which could compromise or from the long-standing the abdomen. He is covered with Zosyn. Continue this for now. Patient remains critically ill. Plan / VTE VTE Prophylaxis Ordered?: Yes (SQ heparin. TEDs and Sequentials.) Plan / Urinary Catheter Reason for insertion/continuin: Critical Pt monitoring SUNNY AVALOS MD May 18, 2018 08:37
[2018-05-18] MEDS: CHLORHEXIDINE GLUCONATE 0.12 % 15ML UDC (PERIDEX ORAL RINSE) MT SCH (08:42)
[2018-05-18] MEDS: KCL 10MEQ/100ML SWI (KRUN) 10 MEQ in APPROPRIATE DILUENT 1 EA IV SCH ×4 (08:42→11:36)
[2018-05-18] MEDS: HEPARIN SOD (PORCINE) 5000 UNITS/ML VIAL SQ SCH ×2 (08:42→22:01)
[2018-05-18] MEDS: PANTOPRAZOLE 40MG INJ (PROTONIX) (C9113) IV SCH (08:42)
--- NOTE | 2018-05-18 08:45 | REP ---
Portable chest x-ray: Single view. History: Intubated patient. Comparison study: May 17, 2018. Findings: Endotracheal tube remains in good position at the level of the transverse aorta. An NG tube enters the left upper quadrant. An epidural catheter and a left subclavian central venous catheter remain in place. There is pleuroparenchymal opacity again noted in the left base obscuring the left hemidiaphragm as before. There is slight haziness in the right base which may reflect a small amount of right pleural fluid. Electronically Signed by Darius Adames MD 05/18/2018 07:36 P
[2018-05-18] MEDS ORDERED: FUROSEMIDE 20 MG/2 ML VIAL (J1940) IV ONE ×2 (09:15→15:45)
--- NOTE | 2018-05-18 09:17 | ROOPDOC ---
[facility] Report Of Operation Report of Operation DATE OF PROCEDURE: 05/16/18 PREPROCEDURE DIAGNOSES: Critical illness, need for central venous access for critical monitoring and TPN. POSTPROCEDURE DIAGNOSES: Same. PROCEDURE: Insertion left subclavian triple-lumen catheter. SURGEON: Jerry Ontiveros MD ANESTHESIA: Gen. anesthesia. ESTIMATED BLOOD LOSS: Approximately 5 mL. COMPLICATIONS: None. PROCEDURE NOTE: Procedure was done at the completion of the expiratory lapa rotomy. Patient is critically ill requiring vasopressor support and a anticipate would need TPN postoperatively prior to resumption of oral feeding. DESCRIPTION OF PROCEDURE: After completion of the expiratory laparotomy and postoperative dressings have been placed, I proceeded with placement of a central venous catheter. He remained in his procedure table with the left arm tucked. His head and neck cord was repositioned facing towards the opposite side in an extended position. I used the central line bundle changing gowns and gloves. His right neck, chest was prepped and draped in the usual sterile fashion. We used a prepackaged Central Line Bundle. The skin underneath the middle of the clavicle was infiltrated with local anesthesia. Using his bony landmarks including that of the clavicle and the manubrium of the sternum, the finder needle was directed subcutaneously, infraclavicularly towards the manubrium sternum with constant suction until blood draw signifying location of the subclavian vein. The addis dewire was threaded through the needle. Using modified Seldinger technique, a fascial dilator was used to enlarge the subcutaneous tract and a triple-lumen catheter was threaded through the guidewire to about 19 cm from the skin line. The guidewire was removed. All the ports were checked and noted to be aspirating and flushing well. The triple-lumen catheter was then secured to the skin with 3-0 nylon sutures. An antibiotic containing sterile clear dressing was placed at the wound exit site. A portable chest x-ray was checked in the postoperative care area and I reviewed this personally. No pneumothorax found. Left subclavian triple-lumen catheter and at the [facility] [place]. JERRY ONTIVEROS MD May 18, 2018 09:17
[2018-05-18] MEDS ORDERED: ETOMIDATE INJ 20MG/10ML VIAL As Ordered ONE (09:19)
--- NOTE | 2018-05-18 10:31 | IPNPDOC ---
Subjective Date Seen The patient was seen on 05/18/18. Subjective Chief Complaint/HPI Patient seen and examined at bedside. Is still intubated and mechanically ventilated. Unable to provide a ROS. However, he is awake and able to follow commands. Resting comfortably in bed. Trial of weaning off ventilator was tried about two times yesterday with Dr. Hays, however, respiratory status was not predictive of success if extubated. Dr. Hays is planning on doing another weaning trial again today. General: Reports: ROS Unobtainable Objective Physical Examination General Exam: Positive: Alert, Cooperative, No Acute Distress, Other (on ventilator for respiratory support) Eye Exam: Positive: Conjunctiva & lids normal; Negative: Sclera icteric ENT Exam: Positive: Atraumatic, Other ENT (his mucous membranes are still moderately dry) Neck Exam: Positive: Supple; Negative: JVD Chest Exam: Positive: Clear to auscultation, Normal air movement, Diminished (at L lung base); Negative: Rales, Rhonchi, Wheezing Heart Exam: Positive: Rate Normal, Regular Rhythm, Normal S1, Normal S2; Negative: Murmurs Abdomen Exam: Positive: BS Hypoactive, Soft (but distended abdomen), Tenderness (diffusely), Other (ileostomy site with minimal dark brown output) Extremity Exam: Positive: Edema (trace in lower extremities bilaterally); Negative: Clubbing, Cyanosis Skin Exam: Negative: Rash Neuro Exam: Positive: Other (able to follow commands ) Assessment /Plan Problems (1) Aspiration pneumonitis Status: Acute Problem Text: 05/18: Day #5 of zosyn. CXR was similar to prior. Please see under assessment #1. Continue to monitor clinically. 05/17: Likely secondary from reflux of gastric contents/secretions from NG tube. Continue zosyn. Day #4. (2) Acute kidney injury Status: Acute Response to Treatment: Worse Discussed With: Nurse, Staff Writer, Patient, Family with Pt Consent Problem Specific Plan: Repeat Labs Problem Text: 05/18: Cr improved today to 1.52 from 1.60 yesterday. Continue to monitor BMP. Is getting IV hydration and TPN which is a concern for 3rd spacing of fluid. Does have trace edema in bilateral lower extremities. Dr. Hays was recommending to try some lasix. 05/17: Creatinine bumped up to 1.60 today with GFR lower at 44.7 from yesterday and is likely from severe dehydration from bowel obstruction. Will continue to monitor BMP and continue IV hydration as necessary. His BUN is down a little, but his creatinine is up. Overall his GFR is down a little more today. Will continue the IV hydration and monitor. I believe that he was significantly dehydrated by the time he was admitted. (3) Acute respiratory failure with hypoxia Status: Acute Response to Treatment: Stable Problem Text: 05/18: Trial of weaning off ventilator was not predictive of success for extubation. Dr. Hays will be performing another trial today. 05/17: Patient went into acute hypoxic respiratory failure status-post surgery yesterday. Remained intubated and was placed on mechanical ventilation. Dr. Hays will be trying to wean patient to assess weather his SBI will go to <104 and if patient can take deep and slow breaths which would indicate success if patient were to be extubated. She will determine this today. He may be able to be extubated either today or tomorrow. (4) Status post exploratory laparotomy Status: Acute Response to Treatment: Stable Problem Text: 05/18: Post-operative day #2. Patient on TPN. Minimal output from ileostomy site. Will likely have prolonged course of ileus. Still diffusely tender to palpation of abdomen, but is appropriate and soft. Important to rule out postoperative fever as patient has been having fevers with Tmax of 101.2 yesterday at noontime. Consider UA. CXR from today showed: There is pleuroparenchymal opacity again noted in the left base obscuring the left hemidiaphragm as before. There is slight haziness in the right base which may reflect a small amount of right pleural fluid. Will watch for signs of pneumonia. Currently on day 5 of zosyn. 05/17: Patient is status-post exploratory laparotomy, lysis of adhesions, repair of enterotomy and serosal tears, release of bowel obstruction post-op day #1. Apparently, surgery took around 7 hours and patient is in need of ventilator support at this time post-surgery. General surgery is following and managing the SBO and Mortgage Operations Manager is consulted to help further manage respiratory support. (5) SBO (small bowel obstruction) Status: Acute Response to Treatment: Improving Discussed With: Nurse, Staff Writer, Patient, Family with Pt Consent Problem Specific Plan: Monitor Clinically Problem Text: 05/18: Dr. Ontiveros of general surgery following and managing. Post-op day #2. 05/17: Status-post exp laparotomy, lysis of adhesions, and release of bowel obstruction post-operative day 1. Is on epidural fentanyl for post-operative pain control. TPN will be started by Dr. Ontiveros today and there is anticipated prolonged course of ileus until return of normal bowel function. This problem is being managed by Dr. Ontiveros of surgery. He seems to be making some improvement with the NG tube drainage, but is still pretty uncomfortable. Will defer to surgery for further management of this problem. (6) Cough Status: Acute Discussed With: Patient, Family with Pt Consent Problem Specific Plan: Monitor Clinically, Repeat Tests Problem Text: His daughter has some concerns about a cough that is productive of scant sputum/mucus. I did not observe this, my exam is relatively benign, and his WBC are lower today. None, the less he is at high risk for a pneumonia as his distended abdomen may make it harder for him to take a truly deep breath and he is in bed most of the time. I decided to order a CXR today to clarify the need for further abx (he got one dose in the ER, but they were not continued on admission). (7) Hypertension Status: Chronic Response to Treatment: Stable Problem Specific Plan: Monitor Clinically Problem Text: 05/18: stable and controlled. Not on any antihypertensives. 05/17: BP well controlled without any antihypertensives. At this time, will hold any antihypertensives. His BP is well controlled at this time. Continue current regimen. Plan/VTE VTE Prophylaxis Ordered?: Yes (SQ heparin. TEDs and Sequentials.) Plan/Urinary Catheter Reason for insertion/continuin: Critical Pt monitoring Plan IVF: Decrease Medications: Replete Electrolytes IV VS, I&O, 24H, Fishbone Vital Signs/I&O Vital Signs Date Time Temp Pulse Resp B/P (MAP) Pulse Ox O2 Delivery O2 Flow Rate FiO2 05/18/18 08:00 30 05/18/18 08:00 99.8 92 27 121/58 (79) 96 Ventilator 05/16/18 14:40 2 I&O- Last 24 Hours up to 6 AM 05/18/18 06:00 Intake Total 4150 ml Output Total 2545 ml Balance 1605 ml Laboratory Data 24H LABS Laboratory Tests 2 05/17/18 17:44: Bedside Glucose (Misc Panel) 152H 05/18/18 00:12: Bedside Glucose (Misc Panel) 180H 05/18/18 04:27: Nucleated Red Blood Cells % (auto) 0.2H, Blood Gas Bicarbonate Standard 30.8H, Arterial Blood pH 7.468H, Arterial Blood Partial Pressure CO2 44.4, Arterial Blood Partial Pressure O2 66.2L, Arterial Blood Total CO2 32.8H, Arterial Blood HCO3 31.4H, Arterial Blood Base Excess 7.0H, Arterial Blood Oxygen Saturation 93.2L, Anion Gap 5L, Glomerular Filtration Rate 47.5, Blood Urea Nitrogen 38H, Creatinine 1.52H, Sodium Level 149H, Potassium Level 3.2#L, Chloride Level 112H, Carbon Dioxide Level 32, Calcium Level 8.1L, Aspartate Amino Transf (AST/SGOT) 20, Alanine Aminotransferase (ALT/SGPT) 13, Alkaline Phosphatase 47, Total Bilirubin 1.4H, Total Protein 4.4L, Albumin 1.3L, Magnesium Level 2.0, Albumin/Globulin Ratio 0.42L 05/18/18 06:04: Bedside Glucose (Misc Panel) 200H CBC/BMP Laboratory Tests 05/18/18 04:27 Red Blood Count 2.73 L, Mean Corpuscular Volume 93.4, Mean Corpuscular Hemoglobin 30.4, Mean Corpuscular Hemoglobin Concent 32.5, Red Cell Distribution Width 14.0, Calcium Level 8.1 L, Aspartate Amino Transf (AST/SGOT) 20, Alanine Aminotransferase (ALT/SGPT) 13, Alkaline Phosphatase 47, Total Bilirubin 1.4 H, Total Protein 4.4 L, Albumin 1.3 L Microbiology Microbiology 05/12/18 Blood Culture - Final, Complete NO GROWTH AFTER 5 DAYS 05/12/18 Blood Culture - Final, Complete NO GROWTH AFTER 5 DAYS GME ATTESTATION GME ATTESTATION My faculty preceptor for this patient encounter was Dr. Clay Sousa, and was physically present during the encounter and was fully available. All aspects of the patient interview, examination, medical decision making process, and medical care plan development were reviewed and approved by the faculty preceptor. The faculty preceptor is aware and concurs with the plan as stated in the body of this note and will attest to such by his/her cosignature. BERYL JO DO May 18, 2018 10:31
[2018-05-18] MEDS: NYSTATIN 500,000 U/5 ML SUSP UDC SS SCH ×3 (12:33→22:01)
[2018-05-18] MEDS: ALBUTEROL SULFATE 2.5 MG/0.5 ML INH NEB SOLN NEB PRN (14:57)
--- NOTE | 2018-05-18 14:58 | CCN ---
DATE: 05/18/2018 Mr. Stanley remains critically ill with acute respiratory failure postoperatively. No hemodynamic events overnight. He remains significantly positive on his input versus output. During sedation holiday, he is awake and alert. He indicates no discomfort. He would like the endotracheal tube removed. No significant secretions. PHYSICAL EXAMINATION: GENERAL: Mr. Stanley is intubated and synchronous with the ventilator. VITAL SIGNS: Temperature 99 with a maximum temperature (t-max) of 99.6, blood pressure 138/64, heart rate 95, respiratory rate 19 to 26, SpO2 95 to 99% on FiO2 of 0.3. HEENT: Anicteric. Nares are patent bilaterally. Nasogastric tube in place. Orogastric and endotracheal tube in place. Moist mucosa. NECK: Supple. Without jugular venous distention (JVD). Without thyromegaly or masses. Trachea is midline. LYMPHATICS: Without cervical, supraclavicular lymphadenopathy. LUNGS: Symmetric excursion. Good air entry. No wheeze, rhonchi or crackle on tidal excursion. Diminished breath sounds posteriorly bilaterally. Normal I:E. ABDOMEN: Active but diminished bowel sounds. Soft. Midline incision dressing clean and dry. Ostomy patent and working. EXTREMITIES: Warm and well perfused. Significant edema. No clubbing or cyanosis. Palpable pedal pulses bilaterally. NEUROLOGIC: Alert, awake and follows commands. LABORATORY DATA: CBC showed a hemoglobin of 8.3, hematocrit 25.5, and platelet count of 152,000. White blood cell count 12,800. Chemistry showed sodium 149, potassium 3.2, chloride 112, bicarbonate 32, anion gap 5, BUN 38, creatinine 1.5, glucose 217, calcium 8.1, magnesium 2.0, total bilirubin 1.4, AST 20, ALT 13, alkaline phosphatase 47, total protein 4.4, albumin 0.3. Arterial blood gas on pressure support of 15 and PEEP of showed FiO2 of 2.3 is 7.47/44/66 and measured saturation only 3% with a base excess of 7.0. Yesterday's input and output was 5454 in and 2154 out, making him positive 3300. Thus far today, 900 in and 1775 out, making him negative 875. I reviewed his chest x-ray, as well as the report. That x-ray showed normal appearing cardiac silhouette and pulmonary vascular shadows. Perhaps slight increased interstitial markings. The left diaphragm remains obscured. No consolidated regions. IMPRESSION: 1. Acute respiratory failure postoperatively. 2. Postoperative day #2 status post exploratory laparotomy with lysis of adhesions. 3. Hypertension at baseline. 4. History of aspiration pneumonitis, clinically resolved. 5. Status post recent diagnosis of paratesticular leiomyosarcoma. 6. Deep vein thrombosis (DVT) prophylaxis with sequential compression device (SCD) and TEDs. 7. Stress ulcer prophylaxis in place with proton pump inhibitor. 8. Infectious disease. On Zosyn. 9. Nutrition. On total parenteral nutrition (TPN). RECOMMENDATIONS: 1. We will go on to a weaning trial to assess for extubation. 2. We will speak with Dr. Ontiveros regarding adding medication for deep vein thrombosis (DVT) prophylaxis. 3. We will give one time dosage of Lasix. 4. Continue supportive care. ADDENDUM: 1. Mr. Stanley had a weaning trial earlier this morning with a pressure support of 5 and PEEP of 5. On that trial, he did reasonably well with his rapid shallow breathing index remained 110s. It was felt that he was not ready for extubation at that point. The plan was to give him a dose of Lasix and reassess later. We returned him to full support with a pressure support of 15 and a PEEP of 5. 2. On a repeat weaning trial on a pressure support of 5 and PEEP of 5, his rapid shallow breathing index was now around 104. He was able to spontaneously increase his tidal volume to around 850 on command. He expressed willingness to work with noninvasive mechanical ventilation or continuous positive airway pressure (CPAP) if needed. It was felt reasonable to extubate him at this time with the plan to support him initially with Vapotherm, which would apply some CPAP. Also, he will need aggressive hyperinflation therapy. He has now been extubated for about 45 minutes and is doing well. Critical care time 45 minutes, not including procedure time. TANNER
[2018-05-18] MEDS: FENTANYL/BUPIVACAINE/NACL BAG 250 ML EPIDURAL SCH (16:45)
[2018-05-18] MEDS ORDERED: [UNRECOGNIZED DRUG - OTHER] IV SCH (18:00)
[2018-05-18] MEDS ORDERED: FAT EMULSION IV 20% 500 ML IV SCH (18:00)
[2018-05-18] MEDS ORDERED: POTASSIUM CHLORIDE IV SCH (18:00)
[2018-05-18] MEDS ORDERED: INSULIN HUMAN REGULAR IV SCH (18:00)
[2018-05-19] VITALS (15 sets, daily range): BP systolic 109–165; BP diastolic 60–76; O2SAT 96–97
[2018-05-19 04:14] LABS: ABG BASE EXCESS 9.9 (-2.0-2.0); ABG HCO3 34.1 MEQ/L (22.0-26.0); ABG O2 SATURATION 94.9 % (95.0-99.0); ABG PARTIAL PRESSURE CO2 44.8 mmHg (35.0-45.0); ABG PARTIAL PRESSURE O2 74.3 mmHg (75.0-100.0); ABG STANDARD HCO3 33.6 MEQ/L (22.0-26.0); ABG TOTAL CO2 35.4 MEQ/L (23.0-31.0); ABG pH (ARTERIAL) 7.499 UNITS (7.350-7.450)
[2018-05-19 04:29] LABS: HEMATOCRIT 27.9 % (42.0-52.0); HEMOGLOBIN 9.1 g/dl (13.5-17.5); MEAN CORPUSCULAR HEMOGLOBIN 30.8 pg (27.0-33.0); MEAN CORPUSCULAR HGB CONC 32.6 g/dl (32.0-36.5); MEAN CORPUSCULAR VOLUME 94.6 fl (80.0-96.0); PLATELET COUNT, AUTOMATED 162 10^3/uL (150-450); RED BLOOD COUNT 2.95 10^6/uL (4.30-6.10); WHITE BLOOD COUNT 16.1 10^3/uL (4.0-10.0)
[2018-05-19 05:01] LABS: ALBUMIN 1.4 GM/DL (3.2-5.2); CALCIUM LEVEL 7.8 MG/DL (8.8-10.2); CREATININE FOR GFR 1.25 MG/DL (0.70-1.30); GLOMERULAR FILTRATION RATE 59.5 (>42); MAGNESIUM LEVEL 1.7 MG/DL (1.8-2.4); POTASSIUM SERUM 3.3 MEQ/L (3.5-5.1); TOTAL PROTEIN 4.4 GM/DL (6.4-8.2)
[2018-05-19] MEDS: PIPERACILLIN/TAZOBACTAM SOD 3.375 GM in D5W MINI-BAG PLUS 50 ML IV SCH ×3 (06:12→17:57)
[2018-05-19] MEDS: HumaLOG INSULIN (NovoLOG) PER UNIT SC SCH ×3 (06:12→17:55)
--- NOTE | 2018-05-19 08:54 | IPNPDOC ---
Subjective General Date/Time Seen The patient was seen on 05/19/18 at 08:52. Subject Chief Complaint/History Patient's postop day 3 after his exploratory laparotomy lysis of adhesion he was successfully extubated yesterday and was placed on BiPAP/CPAP overnight. This had been weaned off this morning. He still has some tachypnea and is exerting some effort in breathing though relatively comfortable. He also got a couple of doses of Lasix IV yesterday. He is making adequate urine. He is hemodynamically stable. He has been complaining of significant abdominal discomfort and has had boluses of his epidural. Current Medications Current Medications Current Medications Acetaminophen (Tylenol Suspension) 650 mg Q4HP PRN GT PAIN OR FEVER Last administered on 05/18/18at 15:14; Start 05/17/18 at 09:15 Albuterol Sulfate (Proventil Neb) 2.5 mg Q4HP PRN NEB SHORTNESS OF BREATH Last administered on 05/18/18at 14:57; Start 05/14/18 at 16:00 Albuterol Sulfate (Proventil Neb) 2.5 mg RQ4H NEB Last administered on 05/14/18at 15:51; Start 05/14/18 at 16:00; Stop 05/14/18 at 16:00; Status DC Albuterol/ Ipratropium (Duoneb (Ipr 0.5mg/Alb 2.5mg)) 3 ml RQ4H NEB Last administered on 05/18/18at 11:08; Start 05/17/18 at 00:00; Stop 05/18/18 at 12:38; Status DC Amlodipine Besylate (Norvasc) 5 mg DAILY PO Last administered on 05/16/18at 08:30; Start 05/13/18 at 09:00; Stop 05/16/18 at 23:33; Status DC Chlorhexidine Gluconate (Peridex Oral Rinse) SWAB/BRUSH ORAL CAVITY BID MT Last administered on 05/18/18at 08:42; Start 05/17/18 at 09:00; Stop 05/18/18 at 12:37; Status DC Diphenhydramine HCl (Benadryl) 12.5 mg Q4HP PRN IV ITCHING; Start 05/16/18 at 15:00 Fat Emulsion Intravenous 500 ml @ 20 mls/hr ONCE@1800 IV Last administered on 05/17/18at 17:38; Start 05/17/18 at 18:00; Stop 05/18/18 at 17:59; Status DC Fat Emulsion Intravenous 500 ml @ 20 mls/hr ONCE@1800 IV Last administered on 05/18/18at 18:20; Start 05/18/18 at 18:00; Stop 05/19/18 at 17:59 Fentanyl Citrate (Sublimaze) 25 mcg Q5MP PRN IV MODERATE PAIN (PS 4-7); Start 05/16/18 at 21:00; Stop 05/16/18 at 22:30; Status DC Fentanyl/ Bupivacaine HCl 250 ml @ 10 mls/hr Q24H EPIDURAL Last administered on 05/18/18at 16:45; Start 05/16/18 at 15:00 Furosemide (LASIX injection) 40 mg DAILY IV ; Start 05/19/18 at 09:00 Heparin Sodium (Porcine) (Heparin) 5,000 units Q12H SQ Last administered on 05/18/18at 22:01; Start 05/13/18 at 09:00 Home Med (Med Rec Complete!) ASDIRECTED XX ; Start 05/12/18 at 16:15; Stop 05/12/18 at 16:15; Status DC Insulin Human Lispro (HumaLOG INSULIN) See Protocol Table Q6H SC Last administered on 05/18/18at 12:33; Start 05/17/18 at 18:00; Stop 05/18/18 at 12:01; Status DC Insulin Human Lispro (HumaLOG INSULIN) See Protocol Table Q6H SC Last administered on 05/19/18at 06:12; Start 05/18/18 at 18:00; Stop 05/19/18 at 12:01 Lactated Ringer's 1,000 ml @ 150 mls/hr Q6H40M IV Last administered on 05/17/18at 12:16; Start 05/16/18 at 21:45; Stop 05/17/18 at 17:56; Status DC Lactated Ringer's 1,000 ml @ 150 mls/hr Q6H40M IV Last administered on 05/14/18at 05:03; Start 05/12/18 at 17:00; Stop 05/14/18 at 09:41; Status DC Metoclopramide HCl (REGLAN INJection) 10 mg Q6HP PRN IV NAUSEA; Start 05/16/18 at 15:00 Midazolam HCl (Versed) 2 mg Q15MP PRN IV AGITATION Last administered on 05/18/18at 04:02; Start 05/16/18 at 21:30; Stop 05/18/18 at 12:37; Status DC Miscellaneous (Unresolved Clarification Entry) SEE LABEL COMMENTS DAILY XX ; Start 05/18/18 at 09:00; Stop 05/18/18 at 09:10; Status DC Morphine Sulfate (Morphine Sulfate Inj) 2 mg Q15M PRN IV MODERATE/SEVERE PAIN (PS 5-10) Last administered on 05/12/18at 16:01; Start 05/12/18 at 13:30; Stop 05/12/18 at 16:01; Status DC Morphine Sulfate (Morphine Sulfate Inj) 2 mg Q2HP PRN IV BREAKTHROUGH PAIN; Start 05/16/18 at 21:30; Stop 05/17/18 at 09:11; Status DC Morphine Sulfate (Morphine Sulfate Inj) 4 mg Q2HP PRN IV SEVERE PAIN (PS 8-10) Last administered on 05/14/18at 02:02; Start 05/12/18 at 16:15; Stop 05/16/18 at 21:33; Status DC Multivitamins 10 ml/Chromium/ Copper/Manganese/ Seleni/Zn 1 ml/ Amino Ac/Electrol/ Dextrose/Calcium 2,011 ml @ 80 mls/hr ONCE@1800 IV Last administered on 05/17/18at 17:38; Start 05/17/18 at 18:00; Stop 05/18/18 at 17:59; Status DC Naloxone HCl (Narcan) 0.1 mg Q5MP PRN IV SEE LABEL COMMENTS; Start 05/16/18 at 15:00 Non-Formulary Medication (Epidural/[employer] [place]) 1 each ASDIRECTED PRN XX SEE LABEL COMMENTS; Start 05/16/18 at 15:00 Non-Formulary Medication ([place]) ASDIRECTED PRN XX SEE LABEL COMMENTS; Start 05/16/18 at 15:00 Nystatin (Mycostatin) 5 ml QID SS Last administered on 05/18/18at 22:01; Start 05/18/18 at 13:00 Ondansetron HCl (ZOFRAN INJection) 4 mg Q6HP PRN IV REFRACTORY NAUSEA; Start 05/16/18 at 15:00 Ondansetron HCl (ZOFRAN INJection) 4 mg Q6HP PRN IV NAUSEA OR VOMITING; Start 05/12/18 at 16:15 Pantoprazole Sodium (Protonix) 40 mg DAILY IV Last administered on 05/18/18at 08:42; Start 05/12/18 at 09:00 Piperacillin Sod/ Tazobactam Sod 3.375 gm/Dextrose 50 ml @ 50 mls/hr Q6H IV [place] st administered on 05/19/18at 06:12; Start 05/14/18 at 12:00 Potassium Chloride 10 meq/ IV Miscellaneous Supplies 100 ml @ 100 mls/hr 0630,0730,0830 IV Last administered on 05/14/18at 10:10; Start 05/14/18 at 06:30; Stop 05/14/18 at 12:00; Status DC Potassium Chloride 10 meq/ IV Miscellaneous Supplies 100 ml @ 100 mls/hr Q1H IV Last administered on 05/15/18at 16:38; Start 05/15/18 at 09:30; Stop 05/15/18 at 15:29; Status DC Potassium Chloride 10 meq/ IV Miscellaneous Supplies 100 ml @ 100 mls/hr Q1H IV Last administered on 05/16/18at 13:16; Start 05/16/18 at 12:00; Stop 05/16/18 at 13:59; Status DC Potassium Chloride 10 meq/ IV Miscellaneous Supplies 100 ml @ 100 mls/hr Q1H IV Last administered on 05/18/18at 11:36; Start 05/18/18 at 08:00; Stop 05/18/18 at 11:59; Status DC Potassium Chloride 10 meq/ IV Miscellaneous Supplies 100 ml @ 100 mls/hr Q1H IV Last administered on 05/14/18at 21:01; Start 05/14/18 at 17:00; Stop 05/14/18 at 19:59; Status DC Potassium Chloride 20 meq/ Insulin Human Regular 10 units/ Amino Ac/Electrol/ Dextrose/Calcium 2,010.1 ml @ 80 mls/hr ONCE@1800 IV Last administered on 05/18/18at 18:19; Start 05/18/18 at 18:00; Stop 05/19/18 at 17:59 Potassium Chloride/Dextrose/ Sod Cl 1,000 ml @ 75 mls/hr [id number] IV Last administered on 05/16/18at 07:36; Start 05/14/18 at 06:15; Stop 05/16/18 at 21:33; Status DC Propofol (Diprivan) TITRATE TO MARJORIE 2-3 ASDIRECTED IV ; Start 05/16/18 at 21:00; Stop 05/16/18 at 22:30; Status DC Propofol 1000 mg/ IV Miscellaneous Supplies 100 ml @ 3.85 mls/hr Q24H IV ; Start 05/16/18 at 21:20; Stop 05/18/18 at 12:37; Status DC Sodium Chloride 1,000 ml @ 100 mls/hr Q10H IV ; Start 05/12/18 at 13:18; Stop 05/12/18 at 16:11; Status DC Allergies Coded Allergies: No Known Allergies (Unverified , 02/27/18) Objective Physical Examination Examination GENERAL APPEARANCE: Patient sitting up on bed, looks mildly short of breath. Mild discomfort. SKIN: Warm and dry. HEENT: Mild pale palpebral conjunctiva. Nasogastric tube in place and working adequately. NECK: No obvious jugular venous distention. LUNGS: Relatively clear to auscultation in both lung dong decreased breath sounds in both basal dong. No wheezing.. HEART: Slight tachycardic. Regular rhythm with no murmurs. ABDOMEN: Abdomen is mildly distended, soft, midline incision is intact. He is loose abdias in between. The Telfa dressings were removed. Minimal drainage in between the abdias. No erythema.. He is tender to palpation over the left upper quadrant and to the left of his midline incision with some mild guarding.. EXTREMITIES: Mild lower extremity edema. Vital Signs Vital Signs Date Time Temp Pulse Resp B/P (MAP) Pulse Ox O2 Delivery O2 Flow Rate FiO2 05/19/18 06:12 97 Nasal Cannula 4.0 05/19/18 04:00 99.3 89 36 149/76 (100) 05/19/18 03:44 40 I&Os I&O- Last 24 Hours up to 6 AM 05/19/18 06:00 Intake Total 2950 ml Output Total 3425 ml Balance -475 ml NG tube 600 ML's output yesterday 300 M also overnight Laboratory Data Labs 24H Laboratory Tests 2 05/18/18 12:30: Bedside Glucose (Misc Panel) 186H 05/18/18 18:01: Bedside Glucose (Misc Panel) 172H 05/18/18 23:33: Bedside Glucose (Misc Panel) 139H 05/19/18 03:59: Blood Gas Bicarbonate Standard 33.6H, Arterial Blood pH 7.499H, Arterial Blood Partial Pressure CO2 44.8, Arterial Blood Partial Pressure O2 74.3L, Arterial Blood Total CO2 35.4H, Arterial Blood HCO3 34.1H, Arterial Blood Base Excess 9.9H, Arterial Blood Oxygen Saturation 94.9L 05/19/18 04:20: Nucleated Red Blood Cells % (auto) 0.0, Anion Gap 7L, Glomerular Filtration Rate 59.5, Blood Urea Nitrogen 34H, Creatinine 1.25, Sodium Level 151H, Potassium Level 3.3L, Chloride Level 109H, Carbon Dioxide Level 35H, Calcium Level 7.8L, Aspartate Amino Transf (AST/SGOT) 25, Alanine Aminotransferase (ALT/SGPT) 21, Alkaline Phosphatase 61, Total Bilirubin 1.0, Total Protein 4.4L, Albumin 1.4L, Magnesium Level 1.7L, Albumin/Globulin Ratio 0.47L CBC/BMP Laboratory Tests 05/19/18 04:20 Red Blood Count 2.95 L, Mean Corpuscular Volume 94.6, Mean Corpuscular Hemoglobin 30.8, Mean Corpuscular Hemoglobin Concent 32.6, Red Cell Distribution Width 13.6, Calcium Level 7.8 L, Aspartate Amino Transf (AST/SGOT) 25, Alanine Aminotransferase (ALT/SGPT) 21, Alkaline Phosphatase 61, Total Bilirubin 1.0, Total Protein 4.4 L, Albumin 1.4 L Microbiology Microbiology 05/12/18 Blood Culture - Final, Complete NO GROWTH AFTER 5 DAYS 05/12/18 Blood Culture - Final, Complete NO GROWTH AFTER 5 DAYS Impression Postop day 3 after exploratory laparotomy, extensive lysis of adhesions, repair of enterotomy and serosal tears, release of bowel obstruction Acute hypoxemic respiratory failure secondary to above as well as to possible aspiration pneumonitis Acute renal failure from severe dehydration from the bowel obstruction Electrolyte derangements, hypokalemia from the NG tube losse, hypernatremia, alkalosis --contraction alkalosis He has been successfully extubated and off the BiPAP. He still needs to exert some effort in breathing. He looks dry to me. And his electrolytes are little drainage more on the colonic side. He has hypernatremia and alkalemia most likely secondary to contraction alkalosis. His CVP though is elevated. He is right now include some low-grade fever, trending up of his leukocytosis, and nutrition. will clamp ng tube today will add extra magnesium and k+ in tpn; 20 meq k run will give extra free water through iv - d5w x 1 bag continue antibiotics - currently on Zosyn day 5. Continue to monitor. May need repeat CT scan next week I'll give him some small dose of Toradol to see if this will help with the pain control. Plan / VTE VTE Prophylaxis Ordered?: Yes (SQ heparin. TEDs and Sequentials.) Plan / Urinary Catheter Reason for insertion/continuin: Critical Pt monitoring SUNNY AVALOS MD May 19, 2018 08:54
[2018-05-19] MEDS ORDERED: FUROSEMIDE 40 MG/4 ML VIAL (J1940) IV SCH (09:00)
[2018-05-19] MEDS ORDERED: KCL 20MEQ IN 100ML SWI (KRUN) 20 MEQ in APPROPRIATE DILUENT 1 EA IV ONE ×2 (09:00)
[2018-05-19] MEDS: PANTOPRAZOLE 40MG INJ (PROTONIX) (C9113) IV SCH (09:25)
[2018-05-19] MEDS: D5W 1,000 ML IV SCH ×2 (09:25→18:37)
[2018-05-19] MEDS: NYSTATIN 500,000 U/5 ML SUSP UDC SS SCH ×4 (09:26→21:00)
[2018-05-19] MEDS: KETOROLAC 30 MG/ML VIAL (J1885) IV SCH ×2 (09:50→17:56)
--- NOTE | 2018-05-19 10:24 | IPNPDOC ---
Subjective Date Seen The patient was seen on 05/19/18. Subjective Chief Complaint/HPI Extubated. Tolerating this - resp status stble on AK NG tube currently clamped. Just started sips Constitutional: Reports: Fever ([place] 99.3 last night); Denies: Chills Pulmonary: Reports: Dyspnea, Cough Cardiovascular: Denies: Chest Pain, Palpitations Gastrointestinal: Reports: Abdominal Pain; Denies: Nausea, Vomiting, Diarrhea Objective Physical Examination General Exam: Positive: Alert, Cooperative, Mild Distress (Slightly labored breathing and weak voice, but appears fairly comfortable. ) ENT Exam: Positive: Atraumatic Chest Exam: Positive: Clear to auscultation, Normal air movement, Diminished (at L lung base); Negative: Rales, Rhonchi, Wheezing Heart Exam: Positive: Rate Normal, Regular Rhythm, Normal S1, Normal S2; Negative: Murmurs Abdomen Exam: Positive: BS Hypoactive, Soft (but distended abdomen), Tenderness (diffusely), Other (ileostomy site with minimal dark brown output) Extremity Exam: Negative: Edema Psych Exam: Positive: Mental status NL Assessment /Plan Problems (1) Aspiration pneumonitis Status: Acute Problem Text: 05/19 D#6 Zosyn. WBC up slightly B/C and f/u CXR pending - ordered by pulmonary Resp status improve - extubated on AK 05/18: Day #5 of zosyn. CXR was similar to prior. Please see under assessment #1. Continue to monitor clinically. 05/17: Likely secondary from reflux of gastric contents/secretions from NG tube. Continue zosyn. Day #4. (2) Acute kidney injury Status: Resolved Problem Text: 05/19 - Crea continues to improve. Na+ 151, K+ low this am Surgery managing IVF and electrolyte replacement 05/18: Cr improved today to 1.52 from 1.60 yesterday. Continue to monitor BMP. Is getting IV hydration and TPN which is a concern for 3rd spacing of fluid. Does have trace edema in bilateral lower extremities. Dr. Hays was recommending to try some lasix. 05/17: Creatinine bumped up to 1.60 today with GFR lower at 44.7 from yesterday and is likely from severe dehydration from bowel obstruction. Will continue to monitor BMP and continue IV hydration as necessary. His BUN is down a little, but his creatinine is up. Overall his GFR is down a little more today. Will continue the IV hydration and monitor. I believe that he was significantly dehydrated by the time he was admitted. (3) Acute respiratory failure with hypoxia Status: Acute Response to Treatment: Improving Problem Text: 05/19 - successfully tolerated extubation - on NC today - Per Pul monary 05/18: Trial of weaning off ventilator was not predictive of success for extubation. Dr. Hays will be performing another trial today. 05/17: Patient went into acute hypoxic respiratory failure status-post surgery yesterday. Remained intubated and was placed on mechanical ventilation. Dr. Hays will be trying to wean patient to assess weather his SBI will go to <104 and if patient can take deep and slow breaths which would indicate success if patient were to be extubated. She will determine this today. He may be able to be extubated either today or tomorrow. (4) Status post exploratory laparotomy Status: Acute Response to Treatment: Stable Problem Text: 05/19 - per surgery On TPN 05/18: Post-operative day #2. Patient on TPN. Minimal output from ileostomy site. Will likely have prolonged course of ileus. Still diffusely tender to palpation of abdomen, but is appropriate and soft. Important to rule out postoperative fever as patient has been having fevers with Tmax of 101.2 yesterday at noontime. Consider UA. CXR from today showed: There is pleuroparenchymal opacity again noted in the left base obscuring the left hemidiaphragm as before. There is slight haziness in the right base which may reflect a small amount of right pleural fluid. Will watch for signs of pneumoni a. Currently on day 5 of zosyn. 05/17: Patient is status-post exploratory laparotomy, lysis of adhesions, repair of enterotomy and serosal tears, release of bowel obstruction post-op day #1. Apparently, surgery took around 7 hours and patient is in need of ventilator support at this time post-surgery. General surgery is following and managing the SBO and Small Brake Form Operator is consulted to help further manage respiratory support. (5) SBO (small bowel obstruction) Status: Acute Response to Treatment: Improving Problem Text: 05/18: Dr. Ontiveros of general surgery following and managing. Post-op day #2. 05/17: Status-post exp laparotomy, lysis of adhesions, and release of bowel obstruction post-operative day 1. Is on epidural fentanyl for post-operative pain control. TPN will be started by Dr. Ontiveros today and there is anticipated prolonged course of ileus until return of normal bowel function. This problem is being managed by Dr. Ontiveros of surgery. He seems to be making some improvement with the NG tube drainage, but is still pretty uncomfortable. Will defer to surgery for further management of this problem. (6) Hypertension Status: Chronic Response to Treatment: Stable Problem Specific Plan: Monitor Clinically Problem Text: 05/18: stable and controlled. Not on any antihypertensives. 05/17: BP well controlled without any antihypertensives. At this time, will hold any antihypertensives. His BP is well controlled at this time. Continue current regimen. Plan/VTE VTE Prophylaxis Ordered?: Yes (SQ heparin. TEDs and Sequentials.) Plan/Urinary Catheter Reason for insertion/continuin: Critical Pt monitoring Plan IVF: Decrease Disposition Get PT/OT once stable to participate per surgery [facility]O Vital Signs Date Time Temp Pulse Resp B/P (MAP) Pulse Ox O2 Delivery O2 Flow Rate FiO2 05/19/18 06:12 97 Nasal Cannula 4.0 05/19/18 04:00 99.3 89 36 149/76 (100) 05/19/18 03:44 40 I&O- Last 24 Hours up to 6 AM 05/19/18 05:59 Intake Total 2950 ml Output Total 3700 ml Balance -750 ml Laboratory Data 24H LABS Laboratory Tests 2 05/18/18 12:30: Bedside Glucose (Misc Panel) 186H 05/18/18 18:01: Bedside Glucose (Misc Panel) 172H 05/18/18 23:33: Bedside Glucose (Misc Panel) 139H 05/19/18 03:59: Blood Gas Bicarbonate Standard 33.6H, Arterial Blood pH 7.499H, Arterial Blood Partial Pressure CO2 44.8, Arterial Blood Partial Pressure O2 74.3L, Arterial Blood Total CO2 35.4H, Arterial Blood HCO3 34.1H, Arterial Blood Base Excess 9.9H, Arterial Blood Oxygen Saturation 94.9L 05/19/18 04:20: Nucleated Red Blood Cells % (auto) 0.0, Anion Gap 7L, Glomerular Filtration Rate 59.5, Blood Urea Nitrogen 34H, Creatinine 1.25, Sodium Level 151H, Potassium Level 3.3L, Chloride Level 109H, Carbon Dioxide Level 35H, Calcium Level 7.8L, Aspartate Amino Transf (AST/SGOT) 25, Alanine Aminotransferase (ALT/SGPT) 21, Alkaline Phosphatase 61, Total Bilirubin 1.0, Total Protein 4.4L, Albumin 1.4L, Magnesium Level 1.7L, Albumin/Globulin Ratio 0.47L CBC/BMP Laboratory Tests 05/19/18 04:20 Red Blood Count 2.95 L, Mean Corpuscular Volume 94.6, Mean Corpuscular Hemoglobin 30.8, Mean Corpuscular Hemoglobin Concent 32.6, Red Cell Distribution Width 13.6, Calcium Level 7.8 L, Aspartate Amino Transf (AST/SGOT) 25, Alanine Aminotransferase (ALT/SGPT) 21, Alkaline Phosphatase 61, Total Bilirubin 1.0, Total Protein 4.4 L, Albumin 1.4 L Microbiology Microbiology 05/12/18 Blood Culture - Final, Complete NO GROWTH AFTER 5 DAYS 05/12/18 Blood Culture - Final, Complete NO GROWTH AFTER 5 DAYS RADHA VILLAGOMEZ PA-C May 19, 2018 10:24
--- NOTE | 2018-05-19 10:49 | REP ---
CHEST, PORTABLE: AP portable view of the chest is performed. Bibasilar infiltrates are stable. Cardiomediastinal silhouette is unchanged. Endotracheal tube has been removed. Left central venous catheter is unchanged. Nasogastric tube is seen with sideport in the region of the gastroesophageal junction. Electronically Signed by Jose Kelly MD 05/19/2018 12:18 P
[2018-05-19] MEDS: ALVIMOPAN 12 MG CAPSULE (ENTEREG) PO SCH ×2 (11:19→21:00)
[2018-05-19] MEDS: FENTANYL/BUPIVACAINE/NACL BAG 250 ML EPIDURAL SCH (12:21)
[2018-05-19] MEDS: HEPARIN SOD (PORCINE) 5000 UNITS/ML VIAL SQ SCH ×2 (17:56→22:00)
[2018-05-19] MEDS ORDERED: [UNRECOGNIZED DRUG - MIXTURE] IV SCH ×6 (18:00)
[2018-05-19] MEDS ORDERED: FAT EMULSION IV 20% 500 ML IV SCH (18:00)
[2018-05-20] VITALS (12 sets, daily range): BP systolic 140–185; BP diastolic 69–86; O2SAT 97
[2018-05-20] MEDS: HumaLOG INSULIN (NovoLOG) PER UNIT SC SCH ×4 (01:43→18:00)
[2018-05-20] MEDS: KETOROLAC 30 MG/ML VIAL (J1885) IV SCH ×3 (01:43→19:02)
[2018-05-20] MEDS: PIPERACILLIN/TAZOBACTAM SOD 3.375 GM in D5W MINI-BAG PLUS 50 ML IV SCH ×4 (01:44→19:02)
[2018-05-20 04:39] LABS: HEMATOCRIT 26.6 % (42.0-52.0); HEMOGLOBIN 8.5 g/dl (13.5-17.5); MEAN CORPUSCULAR HEMOGLOBIN 30.1 pg (27.0-33.0); MEAN CORPUSCULAR VOLUME 94.3 fl (80.0-96.0); PLATELET COUNT, AUTOMATED 158 10^3/uL (150-450); RED BLOOD COUNT 2.82 10^6/uL (4.30-6.10); WHITE BLOOD COUNT 11.8 10^3/uL (4.0-10.0)
[2018-05-20] MEDS: D5W 1,000 ML IV SCH ×2 (05:00)
[2018-05-20 05:03] LABS: ALBUMIN 1.2 GM/DL (3.2-5.2); ALT/SGPT 34 U/L (12-78); BILIRUBIN,TOTAL 0.8 MG/DL (0.2-1.0); BLOOD UREA NITROGEN 29 MG/DL (7-18); CALCIUM LEVEL 7.9 MG/DL (8.8-10.2); CARBON DIOXIDE LEVEL 33 MEQ/L (21-32); CHLORIDE LEVEL 105 MEQ/L (98-107); CREATININE FOR GFR 1.13 MG/DL (0.70-1.30); GLOMERULAR FILTRATION RATE > 60.0 (>42); GLUCOSE, FASTING 125 MG/DL (70-100); MAGNESIUM LEVEL 1.7 MG/DL (1.8-2.4); POTASSIUM SERUM 3.2 MEQ/L (3.5-5.1); SODIUM LEVEL 145 MEQ/L (136-145); TOTAL PROTEIN 4.8 GM/DL (6.4-8.2)
[2018-05-20] MEDS: HEPARIN SOD (PORCINE) 5000 UNITS/ML VIAL SQ SCH ×3 (06:25→22:29)
[2018-05-20] MEDS: FENTANYL/BUPIVACAINE/NACL BAG 250 ML EPIDURAL SCH (07:27)
--- NOTE | 2018-05-20 09:03 | REP ---
REASON: Followup. The NG tube is unchanged. The proximal port remains proximal to the gastroesophageal junction. The left-sided subclavian catheter tip is unchanged. It remains in the superior vena cava. There are bibasilar opacities, status quo. There is cardiomegaly, status quo. The technique utilized in obtaining the radiograph has magnified the cardiac silhouette and accentuated the interstitial markings. IMPRESSION: No significant change. Findings as described above. Electronically Signed by Channing Ruggiero DO 05/20/2018 11:07 A
[2018-05-20] MEDS: PANTOPRAZOLE 40MG INJ (PROTONIX) (C9113) IV SCH (09:31)
[2018-05-20] MEDS: NYSTATIN 500,000 U/5 ML SUSP UDC SS SCH ×4 (09:32→22:29)
[2018-05-20] MEDS: ALVIMOPAN 12 MG CAPSULE (ENTEREG) PO SCH ×2 (09:32→22:29)
[2018-05-20] MEDS: MAG SULF 1GM/100ML (MAG RUN) 1 GM in APPROPRIATE DILUENT 1 EA IV SCH ×2 (09:34→12:04)
[2018-05-20] MEDS ORDERED: KCL 10MEQ/100ML SWI (KRUN) 10 MEQ in APPROPRIATE DILUENT 1 EA IV SCH (10:00)
[2018-05-20] MEDS: KCL 20MEQ IN 100ML SWI (KRUN) 20 MEQ in APPROPRIATE DILUENT 1 EA IV SCH ×4 (10:36→11:54)
--- NOTE | 2018-05-20 10:42 | IPN ---
DATE OF SERVICE: 05/20/2018 Subjectively, the patient seems to feel better today. No significant shortness of breath. Has had no significant pain. No nausea. Has had his NG clamped overnight. However, when I put it to suction, there is about 200 mL of dark, old bilious fluid within his stomach. Otherwise stable overnight. OBJECTIVE: He has been afebrile. His white count has dropped down to 11.8. On input and output, he has good urine output. However, his weight is up a little bit today. PHYSICAL EXAM: Lungs are diminished bilaterally at bases. Abdomen is soft, nondistended, nontender except at the incisions. No guarding. No rebound. No peritoneal signs are appreciated. He has good ostomy output. IMPRESSION AND PLAN: 1. Gastrointestinal (GI). At this time, although he has some return of bowel function, it appears that he still has some proximal GI ileus as expected with the extended operation that he had. My recommendation is that we keep him n.p.o. with NG tube to low intermittent suction at this time. 2. Nutrition will continue him on his TPN. 3. Fluid status. Good urine output at this time. If medicine desires to proceed with diuresis, it is okay from a surgical standpoint. I anticipate he will have some third spacing that will take a while to resolve over time. Otherwise will have him increase his activity. Physical therapy is coming by to see him and will continue with mobilizing him as much as we can.
--- NOTE | 2018-05-20 12:01 | IPNPDOC ---
Subjective Date Seen The patient was seen on 05/20/18. Subjective Chief Complaint/HPI Patient seen and examined at bedside. Is now extubated and breathing on room air which is significant improvement from 2 days ago when I last saw him. Still has NG tube in place which is having some moderate enough output for Surgery to not take the NG out. In addition, is having good output in his ileostomy bag. Patient himself states he is feeling better. Denies any fevers, chills, chest pain, SOB. Admits to some leg swelling however. General: Reports: Other Symptoms (is able to drink but not eat yet: has NG) Constitutional: Denies: Chills, Fever Eyes: Denies: Vision change ENT: Denies: Head Aches Skin: Denies: Rash Pulmonary: Reports: Cough (mild); Denies: Dyspnea Cardiovascular: Denies: Chest Pain Gastrointestinal: Denies: Nausea, Vomiting, Abdominal Pain, Diarrhea, Constipation Genitourinary: Denies: Dysuria Hematologic: Denies: Bruising Endocrine: Denies: Polydipsia, Polyphagia, Polyuria Musculoskeletal: Denies: Joint Pain, Muscle Pain Neurological: Denies: Confusion Psych: Reports: Mood Normal; Denies: Anxiety, Depression Objective Physical Examination General Exam: Positive: Alert, Cooperative, Mild Distress (Slightly labored breathing and weak voice, but appears fairly comfortable. ) Eye Exam: Positive: Conjunctiva & lids normal; Negative: Sclera icteric ENT Exam: Positive: Atraumatic Neck Exam: Positive: Supple; Negative: JVD Chest Exam: Positive: Clear to auscultation, Diminished (at L lung base); Negative: Rales, Rhonchi, Wheezing Heart Exam: Positive: Rate Normal, Regular Rhythm, Normal S1, Normal S2; Negative: Murmurs Telemetry: Positive: No significant arrhythmia Abdomen Exam: Positive: BS Hypoactive, Soft (but still somewhat distended abdomen), Tenderness (in mid-abdominal region only), Other (ileostomy site with good amount of dark brown output) Extremity Exam: Positive: Edema ((+1) pitting in lower extremities near ankles bilaterally) Skin Exam: Positive: Nl turgor and temperature; Negative: Rash Neuro Exam: Positive: Normal Speech Psych Exam: Positive: Mental status NL, Mood NL Assessment /Plan Problems (1) Aspiration pneumonitis Status: Acute Problem Text: 05/20: Day #7 Zosyn. WBC trending down from 16.1 to 11.8. Patient has been afebrile since 2 PM yesterday and satting in the 90s on room air. CXR today shows no significant change, bibasilar opacities and cardiomegaly status- quo. Blood cx show NGTD x 24 hours. 05/19 D#6 Zosyn. WBC up slightly B/C and f/u CXR pending - ordered by pulmonary Resp status improve - extubated on NC 05/18: Day #5 of zosyn. CXR was similar to prior. Please see under assessment #1. Continue to monitor clinically. 05/17: Likely secondary from reflux of gastric contents/secretions from NG tube. Continue zosyn. Day #4. (2) Acute kidney injury Status: Resolved Problem Text: 05/20: Creatinine continuing to improve and is down to 1.13 from 1.25 yesterday. 05/19 - Crea continues to improve. Na+ 151, K+ low this am Surgery managing IVF and electrolyte replacement 05/18: Cr improved today to 1.52 from 1.60 yesterday. Continue to monitor BMP. Is getting IV hydration and TPN which is a concern for 3rd spacing of fluid. Does have trace edema in bilateral lower extremities. Dr. Hays was recommending to try some lasix. 05/17: Creatinine bumped up to 1.60 today with GFR lower at 44.7 from yesterday and is likely from severe dehydration from bowel obstruction. Will continue to monitor BMP and continue IV hydration as necessary. His BUN is down a little, but his creatinine is up. Overall his GFR is down a little more today. Will continue the IV hydration and monitor. I believe that he was significantly dehydrated by the time he was admitted. (3) Acute respiratory failure with hypoxia Status: Acute Response to Treatment: Improving Problem Text: 05/20: Improved. Is satting in the 90s on room air without significant work of breathing. Is in NAD. Still mildly tachypneic with RR in the low 20s. 05/19 - successfully tolerated extubation - on RI today - Per Pulmonary 05/18: Trial of weaning off ventilator was not predictive of success for extubation. Dr. Hays will be performing another trial today. 05/17: Patient went into acute hypoxic respiratory failure status-post surgery yesterday. Remained intubated and was placed on mechanical ventilation. Dr. Missael mahoney will be trying to wean patient to assess weather his SBI will go to <104 and if patient can take deep and slow breaths which would indicate success if patient were to be extubated. She will determine this today. He may be able to be extubated either today or tomorrow. (4) Status post exploratory laparotomy Status: Acute Response to Treatment: Stable Problem Text: 05/20: Is post-operative day #4. Still on TPN with K and Mg replacement as per General Surgery. Has increased output from ileostomy site now which has improved. Abdomen still distended but not as tender to palpation--improving. Still hypoactive bowel sounds on auscultation. 05/19 - per surgery On TPN 05/18: Post-operative day #2. Patient on TPN. Minimal output from ileostomy site. Will likely have prolonged course of ileus. Still diffusely tender to palpation of abdomen, but is appropriate and soft. Important to rule out pos toperative fever as patient has been having fevers with Tmax of 101.2 yesterday at noontime. Consider UA. CXR from today showed: There is pleuroparenchymal opacity again noted in the left base obscuring the left hemidiaphragm as before. There is slight haziness in the right base which may reflect a small amount of right pleural fluid. Will watch for signs of pneumonia. Currently on day 5 of zosyn. 05/17: Patient is status-post exploratory laparotomy, lysis of adhesions, repair of enterotomy and serosal tears, release of bowel obstruction post-op day #1. Apparently, surgery took around 7 hours and patient is in need of ventilator support at this time post-surgery. General surgery is following and managing the SBO and Technical Writer is consulted to help further manage respiratory support. (5) SBO (small bowel obstruction) Status: Acute Response to Treatment: Improving Problem Text: 05/20: Management as per General Surgery, now Dr. Lloyd Valente. Patient is post-op day #4. Spoke briefly to Dr. Valente who states that NG tube will not be removed today. Patient is still having a moderate amount of NG tube output, and it will still take some more time to decompress bowel. 05/18: Dr. Ontiveros of general surgery following and managing. Post-op day #2. 05/17: Status-post exp laparotomy, lysis of adhesions, and release of bowel obstruction post-operative day 1. Is on epidural fentanyl for post-operative pain control. TPN will be started by Dr. Ontiveros today and there is anticipated prolonged course of ileus until return of normal bowel function. This problem is being managed by Dr. Ontiveros of surgery. He seems to be making some improvement with the NG tube drainage, but is still pretty uncomfortable. Will defer to surgery for further management of this problem. (6) Hypertension Status: Chronic Response to Treatment: Stable Problem Specific Plan: Monitor Clinically Problem Text: 05/20: Stable and controlled. BP 140/69 today. 05/18: stable and controlled. Not on any antihypertensives. 05/17: BP well controlled without any antihypertensives. At this time, will hold any antihypertensives. His BP is well controlled at this time. Continue current regimen. Plan/VTE VTE Prophylaxis Ordered?: Yes (SQ heparin. TEDs and Sequentials.) Plan/Urinary Catheter Reason for insertion/continuin: Critical Pt monitoring Plan IVF: Decrease VS, I&O, 24H, Fishbone Vital Signs/I&O Vital Signs Date Time Temp Pulse Resp B/P (MAP) Pulse Ox O2 Delivery O2 Flow Rate FiO2 05/20/18 08:00 98.3 72 21 149/70 (96) 98 Room Air 05/19/18 16:00 2.0 05/19/18 03:44 40 I&O- Last 24 Hours up to 6 AM 05/20/18 06:00 Intake Total 5100 ml Output Total 3245 ml Balance 1855 ml Laboratory Data 24H LABS Laboratory Tests 2 05/19/18 17:53: Bedside Glucose (Misc Panel) 152H 05/20/18 00:49: Bedside Glucose (Misc Panel) 143H 05/20/18 04:20: Nucleated Red Blood Cells % (auto) 0.0, Anion Gap 7L, Glomerular Filtration Rate > 60.0, Blood Urea Nitrogen 29H, Creatinine 1.13, Sodium Level 145, Potassium Level 3.2L, Chloride Level 105, Carbon Dioxide Level 33H, Calcium Level 7.9L, Aspartate Amino Transf (AST/SGOT) 48H, Alanine Aminotransferase (ALT/SGPT) 34, Alkaline Phosphatase 143H, Total Bilirubin 0.8, Total Protein 4.8L, Albumin 1.2L, Magnesium Level 1.7L, Albumin/Globulin Ratio 0.33L 05/20/18 06:24: Bedside Glucose (Misc Panel) 129H CBC/BMP Laboratory Tests 05/20/18 04:20 Red Blood Count 2.82 L, Mean Corpuscular Volume 94.3, Mean Corpuscular Hemoglobin 30.1, Mean Corpuscular Hemoglobin Concent 32.0, Red Cell Distribution Width 13.2, Calcium Level 7.9 L, Aspartate Amino Transf (AST/SGOT) 48 H, Alanine Aminotransferase (ALT/SGPT) 34, Alkaline Phosphatase 143 H, Total Bilirubin 0.8, Total Protein 4.8 L, Albumin 1.2 L Microbiology Microbiology 05/19/18 Blood Culture, Received Pending 05/19/18 Blood Culture - Preliminary, Resulted No growth after 24 hours . All specim... 05/12/18 Blood Culture - Final, Complete NO GROWTH AFTER 5 DAYS 05/12/18 Blood Culture - Final, Complete NO GROWTH AFTER 5 DAYS GME ATTESTATION GME ATTESTATION My faculty preceptor for this patient encounter was Dr. Clay Sousa, and was physically present during the encounter and was fully available. All aspects of the patient interview, examination, medical decision making process, and medical care plan development were reviewed and approved by the faculty preceptor. The faculty preceptor is aware and concurs with the plan as stated in the body of this note and will attest to such by his/her cosignature. BERYL JO DO May 20, 2018 12:01
[2018-05-20] MEDS ORDERED: FUROSEMIDE 40 MG/4 ML VIAL (J1940) As Ordered ONE (17:36)
[2018-05-20 17:54] LABS: ABG BASE EXCESS 5.3 (-2.0-2.0); ABG HCO3 28.7 MEQ/L (22.0-26.0); ABG O2 SATURATION 94.3 % (95.0-99.0); ABG PARTIAL PRESSURE CO2 37.7 mmHg (35.0-45.0); ABG PARTIAL PRESSURE O2 69.3 mmHg (75.0-100.0); ABG STANDARD HCO3 29.2 MEQ/L (22.0-26.0); ABG TOTAL CO2 29.9 MEQ/L (23.0-31.0)
[2018-05-20] MEDS ORDERED: FUROSEMIDE 40 MG/4 ML VIAL (J1940) IV ONE (18:00)
[2018-05-20] MEDS: FAT EMULSION IV 20% 500 ML IV SCH (18:00)
[2018-05-20] MEDS: AMINO AC/ELECTROLYTE/DEX/CALC 2,000 ML IV SCH (18:00)
[2018-05-20 18:05] LABS: BASO % 0.3 % (0.0-1.0); EOS # 0.1 10^3/uL (0.0-0.50); EOS % 0.9 % (0.0-3.0); HEMATOCRIT 29.3 % (42.0-52.0); HEMOGLOBIN 9.6 g/dl (13.5-17.5); LYMPH # 1.1 10^3/uL (1.5-4.5); LYMPH % 7.8 % (24.0-44.0); MEAN CORPUSCULAR HEMOGLOBIN 30.5 pg (27.0-33.0); MEAN CORPUSCULAR HGB CONC 32.8 g/dl (32.0-36.5); MONO # 0.4 10^3/uL (0.0-0.8); MONO % 2.7 % (0.0-5.0); NEUTROPHILS # 11.8 10^3/uL (1.8-7.7); NEUTROPHILS % 83.4 % (36.0-66.0); PLATELET COUNT, AUTOMATED 199 10^3/uL (150-450); RED BLOOD COUNT 3.15 10^6/uL (4.30-6.10); WHITE BLOOD COUNT 14.2 10^3/uL (4.0-10.0)
[2018-05-20 18:30] LABS: ALBUMIN 1.3 GM/DL (3.2-5.2); ALT/SGPT 46 U/L (12-78); BLOOD UREA NITROGEN 26 MG/DL (7-18); CALCIUM LEVEL 8.1 MG/DL (8.8-10.2); CARBON DIOXIDE LEVEL 30 MEQ/L (21-32); CHLORIDE LEVEL 106 MEQ/L (98-107); CREATININE FOR GFR 1.07 MG/DL (0.70-1.30); GLOMERULAR FILTRATION RATE > 60.0 (>42); GLUCOSE, FASTING 111 MG/DL (70-100); MAGNESIUM LEVEL 2.2 MG/DL (1.8-2.4); POTASSIUM SERUM 3.6 MEQ/L (3.5-5.1); SODIUM LEVEL 143 MEQ/L (136-145); TOTAL PROTEIN 5.6 GM/DL (6.4-8.2)
[2018-05-20] MEDS: IPRATROPIUM 0.5MG/ALBUTEROL 2.5MG INH SOL UD 3ML (DUONEB)(J7620) NEB SCH (19:38)
--- NOTE | 2018-05-20 19:46 | IPNPDOC ---
Text Note Date of Service The patient was seen on 05/20/18 approximately 5:25 PM. NOTE Rapid response called for Hypoxia. Upon presenting to the room, patient was noted to have an increasing oxygen requirement of 4 L-->6L from room air. Patient denies any increase in shortness of breath, however is mildly tachypneic. Patient denies chest pain/palpitations. No syncopal episode. Patient does have an NG tube currently with bilious drainage. Patient denies any abdominal pain. Objective: Vitals: (see below) General: No acute distress, laying comfortably in bed. HEENT: Moist mucous membranes. Neck: No JVD or lymphadenopathy Cardiac: RRR, No murmurs Pulm: Coarse crackles at the bases with diminished breath sounds b/l. No wheezing, rhonchi. No use of accessory muscles. Abd: NT/ND + BS. Bandage clean and dry. Ext: No edema or cyanosis Alert and oriented 3. Following commands moving all chimneys. Imaging: CT Chest 05/20/18 IMPRESSION: 1. Interval worsening of bilateral lower lobe airspace disease with progression of bilateral lower lobe consolidation and atelectasis. 2. Persistent right middle lobe multifocal patchy densities. 3. New mild patchy groundglass opacities within both upper lobes. 4. Small bilateral pleural effusions, slightly larger on today's examination. 5. Nasogastric tube with tip in the stomach. Left subclavian central venous catheter with tip in the SVC. A/P Hypoxia and tachypnea- likely secondary to volume overload as well as multifocal pneumonia (aspiration PNA vs HCAP). Pt has been on DVT Prophylaxis. Patient has been given IV Lasix, and I have been told by the nursing staff that the TPN is being held for tonight. CT chest (see above). Discussed the findings with Dr. Valente as well as Dr. Sousa, especially given the patient's increasing hypoxia, fever 100.5, leukocytosis, as well as CRP of 14. The patient appears to be on Zosyn for the past [address] Sousa plans on adding Vanco given CT findings. I will leave it up to Dr. Sousa as to whether he wishes to broaden antibiotic coverage from zosyn to meropenem. Patient has been transferred to PCU for closer monitoring. Consider ID/Pulm consult if no clinical improvement. I have updated family after the rapid response, and answered their questions to their satisfaction. I have also updated the daughter Meghan regarding the patient's CT findings, labs, and clinical status. Will defer further management and care to Dr. Valente as well as . Overall prognosis guarded. VS,Fishbone, I+O VS, Fishbone, I+O Laboratory Tests 05/20/18 04:20 Red Blood Count 2.82 L, Mean Corpuscular Volume 94.3, Mean Corpuscular Hemoglobin 30.1, Mean Corpuscular Hemoglobin Concent 32.0, Red Cell Distribution Width 13.2, Calcium Level 7.9 L, Aspartate Amino Transf (AST/SGOT) 48 H, Alanine Aminotransferase (ALT/SGPT) 34, Alkaline Phosphatase 143 H, Total Bilirubin 0.8, Total Protein 4.8 L, Albumin 1.2 L 05/20/18 17:40 Red Blood Count 3.15 L, Mean Corpuscular Volume 93.0, Mean Corpuscular Hemoglobin 30.5, Mean Corpuscular Hemoglobin Concent 32.8, Red Cell Distribution Width 13.0, Calcium Level 8.1 L, Aspartate Amino Transf (AST/SGOT) 59 H, Alanine Aminotransferase (ALT/SGPT) 46, Alkaline Phosphatase 203 H, Total Bilirubin 1.0, Total Protein 5.6 L, Albumin 1.3 L, Neutrophils (%) (Auto) 83.4 H, Lymphocytes (%) (Auto) 7.8 L, Monocytes (%) (Auto) 2.7, Eosinophils (%) (Auto) 0.9, Basophils (%) (Auto) 0.3, Neutrophils # (Auto) 11.8 H, Lymphocytes # (Auto) 1.1 L, Monocytes # (Auto) 0.4, Eosinophils # (Auto) 0.1, Basophils # (Auto) 0.0 Vital Signs Date Time Temp Pulse Resp B/P (MAP) Pulse Ox O2 Delivery O2 Flow Rate FiO2 05/20/18 19:01 95 Nasal Cannula 6.0 05/20/18 17:55 99.3 87 30 176/85 (115) 05/20/18 17:35 50 I&O- Last 24 Hours up to 6 AM 05/20/18 06:00 Intake Total 5100 ml Output Total 3245 ml Balance 1855 ml CARLOS SWAN MD May 20, 2018 19:46
--- NOTE | 2018-05-20 20:00 | REPVR ---
EXAM: CT Chest Without Contrast EXAM DATE/TIME: 05/20/2018 6:39 PM CLINICAL HISTORY: 78 years old, male; Signs and symptoms; Other: Hypoxia TECHNIQUE: Axial computed tomography images of the chest without intravenous contrast. All CT scans at this facility use at least one of these dose optimization techniques: automated exposure control; mA and/or kV adjustment per patient size (includes targeted exams where dose is matched to clinical indication); or iterative reconstruction. Coronal and sagittal reformatted images were created and reviewed. MIP reconstructed images were created and reviewed. COMPARISON: CT ANGIO CHEST 05/14/2018 2:38 PM FINDINGS: Tubes, catheters and devices: A nasogastric tube is present extending into the stomach. A left subclavian central venous catheter is present with tip in the SVC. Lungs: There has been interval worsening of right lower lobe airspace disease with progressive consolidation and new atelectasis and volume loss. Multifocal patchy opacities within the right middle lobe are essentially unchanged. There is interval progression of left lower lobe airspace disease with progression of pulmonary consolidation and new volume loss secondary to atelectasis/collapse. Bilateral apical scarring is present. There are a few patchy and groundglass opacities within both upper lobes, new. Pleural space: There are small pleural effusions bilaterally, slightly increased in size. No pneumothorax. Heart: Normal. No cardiomegaly. No pericardial effusion. Aorta: Aortic and coronary atherosclerosis. No aneurysm. Lymph nodes: Unremarkable. No enlarged lymph nodes. Bones/joints: Unremarkable. No acute fracture. Soft tissues: Unremarkable. IMPRESSION: 1. Interval worsening of bilateral lower lobe airspace disease with progression of bilateral lower lobe consolidation and atelectasis. 2. Persistent right middle lobe multifocal patchy densities. 3. New mild patchy groundglass opacities within both upper lobes. 4. Small bilateral pleural effusions, slightly larger on today's examination. 5. Nasogastric tube with tip in the stomach. Left subclavian central venous catheter with tip in the SVC. Electronically signed by: Yohan Sargent On 05/20/2018 19:59:30 PM
[2018-05-20] MEDS ORDERED: VANCOMYCIN HCL 1,000 MG, VIAL MATE ADAPTER 1 EACH in D5W 250 ML IV ONE (21:00)
[2018-05-21 01:00] VITALS: BP 149/72
[2018-05-21] MEDS: FUROSEMIDE 40 MG/4 ML VIAL (J1940) IV SCH ×5 (01:24→23:45)
[2018-05-21] MEDS: PIPERACILLIN/TAZOBACTAM SOD 3.375 GM in D5W MINI-BAG PLUS 50 ML IV SCH ×4 (01:24→17:51)
[2018-05-21] MEDS: KETOROLAC 30 MG/ML VIAL (J1885) IV SCH ×3 (01:25→17:50)
[2018-05-21 04:00] VITALS: BP 134/76
[2018-05-21 04:20] LABS: APPEARANCE, URINE CLEAR (CLEAR); BACTERIA, URINE AUTO 1+ (NEGATIVE); BILIRUBIN, URINE AUTO NEGATIVE (NEGATIVE); BLOOD, URINE BLOOD 2+ (NEGATIVE); COLOR, URINE YELLOW (YELLOW); GLUCOSE, URINE (UA) AUTO NEGATIVE (NEGATIVE); KETONE, URINE AUTO NEGATIVE (NEGATIVE); LEUKOCYTE ESTERASE, URINE AUTO NEGATIVE (NEGATIVE); MUCUS, URINE SMALL (NEGATIVE); NITRITE, URINE AUTO NEGATIVE (NEGATIVE); PROTEIN, URINE AUTO NEGATIVE (NEGATIVE); RBC, URINE AUTO 10 /HPF (0-3); SPECIFIC GRAVITY URINE AUTO 1.008 (1.002-1.035); SQUAMOUS EPITHELIAL CELL UR AU 0 /HPF (0-6); TRANSITIONAL EPITHELIAL AUTO <1 /HPF; UROBILINOGEN, URINE AUTO 0.2 mg/dL (0.0-2.0); WBC, URINE AUTO 2 /HPF (0-3)
[2018-05-21] MEDS: FENTANYL/BUPIVACAINE/NACL BAG 250 ML EPIDURAL SCH (04:34)
[2018-05-21 04:37] LABS: HEMATOCRIT 26.8 % (42.0-52.0); MEAN CORPUSCULAR HGB CONC 33.6 g/dl (32.0-36.5); MEAN CORPUSCULAR VOLUME 89.3 fl (80.0-96.0); PLATELET COUNT, AUTOMATED 209 10^3/uL (150-450); WHITE BLOOD COUNT 14.5 10^3/uL (4.0-10.0)
[2018-05-21 05:06] LABS: ALBUMIN 1.3 GM/DL (3.2-5.2); ALT/SGPT 46 U/L (12-78); BILIRUBIN,TOTAL 1.4 MG/DL (0.2-1.0); BLOOD UREA NITROGEN 27 MG/DL (7-18); CALCIUM LEVEL 7.8 MG/DL (8.8-10.2); CARBON DIOXIDE LEVEL 32 MEQ/L (21-32); CHLORIDE LEVEL 102 MEQ/L (98-107); CREATININE FOR GFR 1.22 MG/DL (0.70-1.30); GLOMERULAR FILTRATION RATE > 60.0 (>42); GLUCOSE, FASTING 96 MG/DL (70-100); MAGNESIUM LEVEL 1.8 MG/DL (1.8-2.4); POTASSIUM SERUM 3.1 MEQ/L (3.5-5.1); SODIUM LEVEL 143 MEQ/L (136-145); TOTAL PROTEIN 5.4 GM/DL (6.4-8.2)
[2018-05-21] MEDS: HumaLOG INSULIN (NovoLOG) PER UNIT SC SCH ×4 (05:12→17:50)
[2018-05-21 06:13] LABS: ABG BASE EXCESS 7.5 (-2.0-2.0); ABG HCO3 29.8 MEQ/L (22.0-26.0); ABG PARTIAL PRESSURE CO2 33.1 mmHg (35.0-45.0); ABG PARTIAL PRESSURE O2 80.9 mmHg (75.0-100.0); ABG STANDARD HCO3 31.4 MEQ/L (22.0-26.0); ABG TOTAL CO2 30.8 MEQ/L (23.0-31.0); ABG pH (ARTERIAL) 7.572 UNITS (7.350-7.450)
[2018-05-21] MEDS: HEPARIN SOD (PORCINE) 5000 UNITS/ML VIAL SQ SCH ×3 (06:17→21:19)
--- NOTE | 2018-05-21 06:40 | PHACANCOPD ---
PHARMACY VANCOMYCIN DOSING Pt Demographics Demographics Patient Age:78 , Weight:67.700 , Gender: male Adjusted Body Weight Date: 05/21/18, Adjusted Body Weight: [71.2] Kg(actual wt) Vancomycin Vancomycin indication: pneumonia Vancomycin Target Ranges: 10-20 mcg/ml Vancomycin Load Y/N: No Load Dose Date Time Vancomycin Load Dose: Date: Time: Vancomycin Dose Date: 05/21/18. Current Vancomycin Dose: [1 gm iv q12h] Intermittent Dosing?: No Labs Labs Laboratory Tests 05/20/18 17:40 Red Blood Count 3.15 L, Mean Corpuscular Volume 93.0, Mean Corpuscular Hemoglobin 30.5, Mean Corpuscular Hemoglobin Concent 32.8, Red Cell Distribution Width 13.0, Neutrophils (%) (Auto) 83.4 H, Lymphocytes (%) (Auto) 7.8 L, Monocytes (%) (Auto) 2.7, Eosinophils (%) (Auto) 0.9, Basophils (%) (Auto) 0.3, Neutrophils # (Auto) 11.8 H, Lymphocytes # (Auto) 1.1 L, Monocytes # (Auto) 0.4, Eosinophils # (Auto) 0.1, Basophils # (Auto) 0.0, Calcium Level 8.1 L, Aspartate Amino Transf (AST/SGOT) 59 H, Alanine Aminotransferase (ALT/SGPT) 46, Alkaline Phosphatase 203 H, Total Bilirubin 1.0, Total Protein 5.6 L, Albumin 1.3 L 05/21/18 04:18 Red Blood Count 3.00 L, Mean Corpuscular Volume 89.3, Mean Corpuscular Hemoglobin 30.0, Mean Corpuscular Hemoglobin Concent 33.6, Red Cell Distribution Width 12.8, Calcium Level 7.8 L, Aspartate Amino Transf (AST/SGOT) 57 H, Alanine Aminotransferase (ALT/SGPT) 46, Alkaline Phosphatase 227 H, Total Bilirubin 1.4 H, Total Protein 5.4 L, Albumin 1.3 L Allergies Coded Allergies No Known Allergies (Unverified02/27/18) Micro Microbiology 05/20/18 Blood Culture, Received Pending 05/20/18 Blood Culture, Received Pending 05/19/18 Blood Culture - Preliminary, Resulted No growth after 24 hours . All specim... 05/19/18 Blood Culture - Preliminary, Resulted No growth after 24 hours . All specim... 05/12/18 Blood Culture - Final, Complete NO GROWTH AFTER 5 DAYS 05/12/18 Blood Culture - Final, Complete NO GROWTH AFTER 5 DAYS Creatinine Clearance Date:05/21/18. Creatinine Clearance: [57.3]calculated. Pending Labs Vancomycin trough due 05/22@0700 Assessment and Plan Maintaining Current Dose?: Yes Reason for dose change: No Dose Change Pharmacist Note Pharmacist Note Date: 05/21/18. Pharmacist note:Patient receiving pip/tazo 3.375 gm iv [id number].Vancomycin consult added 05/20 d/t respiratory involvemt/possible pneumonia.Vancomycin 1 gm administered 05/20@2230,then will continue with 1 gram iv [id number]. trough is scheduled 05/22@0700-Will continue to follow and make adjustments as needed [facility] May 21, 2018 06:40
[2018-05-21] MEDS: IPRATROPIUM 0.5MG/ALBUTEROL 2.5MG INH SOL UD 3ML (DUONEB)(J7620) NEB SCH ×4 (07:06→19:41)
[2018-05-21 08:00] VITALS: BP 145/68
[2018-05-21] MEDS: NYSTATIN 500,000 U/5 ML SUSP UDC SS SCH ×4 (09:08→20:09)
[2018-05-21] MEDS: VANCOMYCIN HCL 1,000 MG, VIAL MATE ADAPTER 1 EACH in D5W 250 ML IV SCH ×2 (09:09→20:09)
[2018-05-21] MEDS: ALVIMOPAN 12 MG CAPSULE (ENTEREG) PO SCH ×2 (09:09→20:09)
[2018-05-21] MEDS: KCL 10MEQ/100ML SWI (KRUN) 10 MEQ in APPROPRIATE DILUENT 1 EA IV SCH ×10 (09:10→15:54)
[2018-05-21] MEDS: PANTOPRAZOLE 40MG INJ (PROTONIX) (C9113) IV SCH (09:13)
[2018-05-21 12:00] VITALS: BP 99/53
--- NOTE | 2018-05-21 12:28 | REP ---
REASON: Followup. COMPARISON: Multiple, the latest 05/20/2018. The technique utilized in obtaining the radiograph has magnified the cardiac silhouette and accentuated the interstitial markings. There is no change in the nasogastric tube. The proximal port is again proximal to the gastroesophageal junction. Cardiomediastinal silhouette is unchanged. Mild cardiomegaly suspected accentuated by technique. Bibasilar opacities unchanged. Left sided central venous catheter tip remains in the superior vena cava. No new abnormalities noted. IMPRESSION: As above. Electronically Signed by Channing Ruggiero DO 05/21/2018 10:32 A
--- NOTE | 2018-05-21 12:28 | REP ---
REASON: Change in mental status. COMPARISON: Multiple, the latest 05/20/2018. Bibasilar opacities status quo. Cardiomediastinal silhouette unchanged. The technique utilized in obtaining the radiograph has magnified the cardiac silhouette and accentuated the interstitial markings. The tubes and lines are unchanged. There are no new abnormal opacities. There is no change in the osseous structures. IMPRESSION: No change. Electronically Signed by Channing Ruggiero DO 05/21/2018 10:29 A
[2018-05-21] MEDS: FAT EMULSION IV 20% 500 ML IV SCH (12:38)
[2018-05-21] MEDS: AMINO AC/ELECTROLYTE/DEX/CALC 2,000 ML IV SCH (12:39)
--- NOTE | 2018-05-21 14:54 | IPN ---
DATE: 05/21/2018 Rasheed is seen in progressive care unit (PCU). He had an episode yesterday of hypoxia. Rapid assessment team was called. I was in communication with Dr. Ascencio and appreciate his prompt and careful attention to the situation. CT scan of the chest showed diffuse infiltrates as well as effusions. I added vancomycin to his Zosyn yesterday and initiated diuresis. He feels markedly improved today. Dr. Barrera/Pulmonary was involved with the case when patient was in the unit. She informally reviewed the CT and is aware of his recent events. PHYSICAL EXAMINATION: He is alert, conversant, and looks markedly improved. Blood pressure 145/68, pulse is 95, respiratory rate 18, 93% oxygen saturation on 3 liters, down from 6 liters yesterday. Intake and output is negative 2200. General Appearance: Alert and conversant. No jugular venous distention (JVD). Lungs: Decreased breath sounds, scattered rhonchi. Heart: Regular rhythm. Abdomen is dressed. There is trace peripheral edema. LABORATORY: White count 14.5, hemoglobin 9, platelets 209. Sodium 143, potassium 3.1 (six potassium runs ordered). BUN 27, creatinine 1.2, glucose 96, albumin is 1.3. Blood sugars are all normal. IMPRESSION: 1. Aspiration pneumonia. On Zosyn and vancomycin. I think that regimen should be sufficient. Consideration could be given to changing Zosyn to meropenem if his condition declines, but he is much improved today. Clinical pharmacology has been consulted for vancomycin dosing. Watch renal function on the vancomycin. 2. Acute kidney injury. Improved. IV fluids have been discontinued. He is being diuresed. Watch his renal function on vancomycin. 3. Diastolic congestive heart failure/volume overload, responding well, Lasix orders in the chart aiming for a net diuresis of 1200 mL per day. 4. Hypokalemia. Potassium supplement has been ordered. 5. Small bowel obstruction/status post exploratory laparotomy per surgery. Dr. Ontiveros is the attending and Dr. Valente is on this weekend.
[2018-05-21 16:00] VITALS: BP 133/63
--- NOTE | 2018-05-21 17:37 | IPN ---
DATE: 05/21/2018 Patient overall has made some significant improvements overnight and he had some significant respiratory distress, was given some diuretics for some fluid overload issues and has made some significant progress with urine output significantly picked up this morning with 2 liters out. He still is having a lot of NG tube output but it seems as though the NG tube output probably is related to his significant consumption of fluids. He does not restrain himself from the amount of water and ice chips he takes and is over a liter and a half thus far today. Otherwise his white count is still elevated at this time, his hematocrit is slightly diminished but it may be dilutional. His labs are relatively stable. IMPRESSION AND PLAN: The patient is a 78-year-old male with primarily respiratory issues at this point that seem to be looking much better from his standpoint. His lungs are better today although he still has some crackles at the bases bilaterally. He has some wheezing on the right-hand side and although this is being called a fluid overload I anticipate that a good portion of this is also possible pneumonia as well. I do feel that it is reasonable to see how he does with continued close monitoring here in the PCU and restarting his TPN is reasonable given that his input is actually not significant at this point and he is significantly negative. From the GI standpoint I do feel that he has a significant NG tube output. It is hard to tell whether this is truly just his drinking of fluids, although it is bilious tinged, I would like to clamp and check residuals every 4 hours and we will see how he does with this. He does have his colostomy functioning quite nicely and he is not complaining of any significant pain and his dressing on his incision is clean and dry at this point. Will see how things go with close observation over the next 24 hours.
[2018-05-21] MEDS ORDERED: [UNRECOGNIZED DRUG - OTHER] IV SCH ×4 (18:00)
[2018-05-21] MEDS ORDERED: FAT EMULSION IV 20% 500 ML IV SCH (18:00)
[2018-05-21] MEDS ORDERED: POTASSIUM CHLORIDE IV SCH ×4 (18:00)
[2018-05-21] MEDS ORDERED: INSULIN HUMAN REGULAR IV SCH ×4 (18:00)
[2018-05-21 20:00] VITALS: BP 103/56
--- NOTE | 2018-05-21 22:16 | ECGEPIP ---
Stationary ECG Study [facility] Test Date: 2018-05-20 Pat Name: MAYELIN ROMAN Department: Room: [place] [address] Gender: M [employer] Intern: MILENA : 1940 Requested By: CARLOS SWAN Order Number: [id number] Reading MD: Felix Dominguez Measurements Intervals [place] Rate: 92 P: 26 KS: 140 QRS: -8 QRSD: 104 T: 20 QT: 357 QTc: 442 Interpretive Statements SINUS RHYTHM MINIMAL VOLTAGE CRITERIA FOR LVH, CONSIDER NORMAL VARIANT LAST TRACING ON 05/12/18 AT 13:15. Left ventricular hypertrophy FINDINGS ARE NEW Electronically Signed On 05-21-2018 22:15:51 EST by Felix Dominguez
[2018-05-22] VITALS (7 sets, daily range): BP systolic 123–140; BP diastolic 56–66; O2SAT 94
[2018-05-22] MEDS: FENTANYL/BUPIVACAINE/NACL BAG 250 ML EPIDURAL SCH ×2 (00:41→21:52)
[2018-05-22] MEDS: KETOROLAC 30 MG/ML VIAL (J1885) IV SCH ×3 (01:20→17:31)
[2018-05-22 05:33] LABS: HEMATOCRIT 23.4 % (42.0-52.0); HEMOGLOBIN 7.9 g/dl (13.5-17.5); MEAN CORPUSCULAR HEMOGLOBIN 30.5 pg (27.0-33.0); MEAN CORPUSCULAR HGB CONC 33.8 g/dl (32.0-36.5); MEAN CORPUSCULAR VOLUME 90.3 fl (80.0-96.0); PLATELET COUNT, AUTOMATED 239 10^3/uL (150-450); RED BLOOD COUNT 2.59 10^6/uL (4.30-6.10); WHITE BLOOD COUNT 12.2 10^3/uL (4.0-10.0)
[2018-05-22] MEDS: HumaLOG INSULIN (NovoLOG) PER UNIT SC SCH ×4 (05:41→17:58)
[2018-05-22] MEDS: HEPARIN SOD (PORCINE) 5000 UNITS/ML VIAL SQ SCH ×3 (05:41→21:52)
[2018-05-22] MEDS: FUROSEMIDE 40 MG/4 ML VIAL (J1940) IV SCH ×3 (05:42→17:29)
[2018-05-22] MEDS: PIPERACILLIN/TAZOBACTAM SOD 3.375 GM in D5W MINI-BAG PLUS 50 ML IV SCH ×5 (05:42→17:31)
[2018-05-22 06:19] LABS: ALBUMIN 1.4 GM/DL (3.2-5.2); BILIRUBIN,TOTAL 0.8 MG/DL (0.2-1.0); CALCIUM LEVEL 7.4 MG/DL (8.8-10.2); CREATININE FOR GFR 1.27 MG/DL (0.70-1.30); GLOMERULAR FILTRATION RATE 58.4 (>42); MAGNESIUM LEVEL 1.9 MG/DL (1.8-2.4); POTASSIUM SERUM 3.2 MEQ/L (3.5-5.1); TOTAL PROTEIN 4.9 GM/DL (6.4-8.2)
[2018-05-22] MEDS ORDERED: KCL 20MEQ IN 100ML SWI (KRUN) 20 MEQ in APPROPRIATE DILUENT 1 EA IV SCH ×2 (06:45)
[2018-05-22] MEDS: IPRATROPIUM 0.5MG/ALBUTEROL 2.5MG INH SOL UD 3ML (DUONEB)(J7620) NEB SCH ×4 (07:36→20:56)
--- NOTE | 2018-05-22 08:51 | IPNPDOC ---
Subjective General Date/Time Seen The patient was seen on 05/22/18 at 08:49. Subject Chief Complaint/History The patient is a 78-year-old male admitted with a reason for visit of Small Bowl Obstruction. Weekend events noted. There persists some concern with regards to his breathing but this is improved. He also denies any ongoing abdominal discomfort. He still draining more than a liter a day from his nasogastric tube so this could be from his fluid intake. his ileostomy is working with liquid stool and some gas in the bag. He also has started to work with physical therapy but still limited in his activity due to the shortness of breath. Current Medications Current Medications Current Medications Acetaminophen (Tylenol Suspension) 650 mg Q4HP PRN GT PAIN OR FEVER Last administered on 05/18/18at 15:14; Start 05/17/18 at 09:15 Albuterol Sulfate (Proventil Neb) 2.5 mg Q4HP PRN NEB SHORTNESS OF BREATH Last administered on 05/18/18at 14:57; Start 05/14/18 at 16:00 Albuterol Sulfate (Proventil Neb) 2.5 mg RQ4H NEB Last administered on 05/14/18at 15:51; Start 05/14/18 at 16:00; Stop 05/14/18 at 16:00; Status DC Albuterol/ Ipratropium (Duoneb (Ipr 0.5mg/Alb 2.5mg)) 3 ml RQ4H NEB Last administered on 05/18/18at 11:08; Start 05/17/18 at 00:00; Stop 05/18/18 at 12:38; Status DC Albuterol/ Ipratropium (Duoneb (Ipr 0.5mg/Alb 2.5mg)) 3 ml RQID NEB Last administered on 05/22/18at 07:36; Start 05/20/18 at 20:00 Alvimopan (Entereg) 12 mg BID PO Last administered on 05/21/18at 20:09; Start 05/19/18 at 09:00; Stop 05/25/18 at 21:01 Amino Ac/Electrol/ Dextrose/Calcium 2,000 ml @ 50 mls/hr ONCE@1800 IV Last administered on 05/21/18at 12:39; Start 05/20/18 at 18:00; Stop 05/21/18 at 17:59; Status DC Amlodipine Besylate (Norvasc) 5 mg DAILY PO Last administered on 05/16/18at 08:30; Start 05/13/18 at 09:00; Stop 05/16/18 at 23:33; Status DC Chlorhexidine Gluconate (Peridex Oral Rinse) SWAB/BRUSH ORAL CAVITY BID MT Last administered on 05/18/18at 08:42; Start 05/17/18 at 09:00; Stop 05/18/18 at 12:37; Status DC Dextrose/Water 1,000 ml @ 100 mls/hr Q10H IV Last administered on 05/20/18at 00:00; Start 05/19/18 at 09:00; Stop 05/20/18 at 15:19; Status DC Diphenhydramine HCl (Benadryl) 12.5 mg Q4HP PRN IV ITCHING; Start 05/16/18 at 15:00 Fat Emulsion Intravenous 500 ml @ 20 mls/hr ONCE@1800 IV Last administered on 05/17/18at 17:38; Start 05/17/18 at 18:00; Stop 05/18/18 at 17:59; Status DC Fat Emulsion Intravenous 500 ml @ 20 mls/hr ONCE@1800 IV Last administered on 05/18/18at 18:20; Start 05/18/18 at 18:00; Stop 05/19/18 at 17:59; Status DC Fat Emulsion Intravenous 500 ml @ 20 mls/hr ONCE@1800 IV Last administered on 05/19/18at 17:56; Start 05/19/18 at 18:00; Stop 05/20/18 at 17:59; Status DC Fat Emulsion Intravenous 500 ml @ 20 mls/hr ONCE@1800 IV Last administered on 05/21/18at 12:38; Start 05/20/18 at 18:00; Stop 05/21/18 at 17:59; Status DC Fat Emulsion Intravenous 500 ml @ 20 mls/hr ONCE@1800 IV Last administered on 05/21/18at 17:49; Start 05/21/18 at 18:00; Stop 05/22/18 at 17:59 Fentanyl Citrate (Sublimaze) 25 mcg Q5MP PRN IV MODERATE PAIN (PS 4-7); Start 05/16/18 at 21:00; Stop 05/16/18 at 22:30; Status DC Fentanyl/ Bupivacaine HCl 250 ml @ 12 mls/hr [id number] EPIDURAL Last administered on 05/22/18at 00:41; Start 05/16/18 at 15:00 Furosemide (LASIX injection) 40 mg DAILY IV ; Start 05/19/18 at 09:00; Stop 05/19/18 at 09:00; Status DC Furosemide (LASIX injection) 40 mg Q6H IV Last administered on 05/22/18at 05:42; Start 05/21/18 at 00:00 Heparin Sodium (Porcine) (Heparin) 5,000 units Q12H SQ Last administered on 05/18/18at 22:01; Start 05/13/18 at 09:00; Stop 05/19/18 at 08:52; Status DC Heparin Sodium (Porcine) (Heparin) 5,000 units Q8H SQ Last administered on 05/22/18at 05:41; Start 05/19/18 at 14:00 Home Med (Med Rec Complete!) ASDIRECTED XX ; Start 05/12/18 at 16:15; Stop 05/12/18 at 16:15; Status DC Insulin Human Lispro (HumaLOG INSULIN) See Protocol Table Q6H SC Last administered on 05/18/18at 12:33; Start 05/17/18 at 18:00; Stop 05/18/18 at 12:01; Status DC Insulin Human Lispro (HumaLOG INSULIN) See Protocol Table Q6H SC Last administered on 05/19/18at 11:27; Start 05/18/18 at 18:00; Stop 05/19/18 at 12:01; Status DC Insulin Human Lispro (HumaLOG INSULIN) See Protocol Table Q6H SC Last administered on 05/20/18at 12:04; Start 05/19/18 at 18:00; Stop 05/20/18 at 12:01; Status DC Insulin Human Lispro (HumaLOG INSULIN) See Protocol Table Q6H SC ; Start 05/20/18 at 18:00; Stop 05/21/18 at 12:01; Status DC Insulin Human Lispro (HumaLOG INSULIN) See Protocol Table Q6H SC Last administered on 05/22/18at 05:41; Start 05/21/18 at 18:00; Stop 05/22/18 at 12:01 Insulin Human Regular 33 units/ Potassium Chloride 67 meq/ Magnesium Sulfate 13 meq/Amino Ac/ Electrol/Dextrose/ Calcium 2,037.08 ml @ 50 mls/hr ONCE@1800 IV Last administered on 05/21/18at 17:49; Start 05/21/18 at 18:00; Stop 05/22/18 at 17:59 Ketorolac Tromethamine (ToRADol) 15 mg Q8H IV Last administered on 05/22/18at 01:20; Start 05/19/18 at 10:00; Stop 05/24/18 at 09:59 Lactated Ringer's 1,000 ml @ 150 mls/hr Q6H40M IV Last administered on 05/17/18at 12:16; Start 05/16/18 at 21:45; Stop 05/17/18 at 17:56; Status DC Lactated Ringer's 1,000 ml @ 150 mls/hr Q6H40M IV Last administered on 05/14/18at 05:03; Start 05/12/18 at 17:00; Stop 05/14/18 at 09:41; Status DC Magnesium Sulfate/ Dextrose 1 gm/IV Miscellaneous Supplies 100 ml @ 100 mls/hr Q1H IV Last administered on 05/20/18at 12:04; Start 05/20/18 at 10:00; Stop 05/20/18 at 11:59; Status DC Metoclopramide HCl (REGLAN INJection) 10 mg Q6HP PRN IV NAUSEA; Start 05/16/18 at 15:00 Midazolam HCl (Versed) 2 mg Q15MP PRN IV AGITATION Last administered on 05/18/18at 04:02; Start 05/16/18 at 21:30; Stop 05/18/18 at 12:37; Status DC Miscellaneous (Unresolved Clarification Entry) SEE LABEL COMMENTS DAILY XX ; Start 05/18/18 at 09:00; Stop 05/18/18 at 09:10; Status DC Miscellaneous (Unresolved Clarification Entry) SEE LABEL COMMENTS DAILY XX ; Start 05/19/18 at 09:00; Stop 05/19/18 at 16:27; Status DC Morphine Sulfate (Morphine Sulfate Inj) 2 mg Q15M PRN IV MODERATE/SEVERE PAIN (PS 5-10) Last administered on 05/12/18at 16:01; Start 05/12/18 at 13:30; Stop 05/12/18 at 16:01; Status DC Morphine Sulfate (Morphine Sulfate Inj) 2 mg Q2HP PRN IV BREAKTHROUGH PAIN; Start 05/16/18 at 21:30; Stop 05/17/18 at 09:11; Status DC Morphine Sulfate (Morphine Sulfate Inj) 4 mg Q2HP PRN IV SEVERE PAIN (PS 8-10) Last administered on 05/14/18at 02:02; Start 05/12/18 at 16:15; Stop 05/16/18 at 21:33; Status DC Multivitamins 10 ml/Chromium/ Copper/Manganese/ Seleni/Zn 1 ml/ Amino Ac/Electrol/ Dextrose/Calcium 2,011 ml @ 80 mls/hr ONCE@1800 IV Last admin istered on 05/17/18at 17:38; Start 05/17/18 at 18:00; Stop 05/18/18 at 17:59; Status DC Multivitamins 10 ml/Chromium/ Copper/Manganese/ Seleni/Zn 1 ml/ Insulin Human Regular 20 units/ Potassium Chloride 40 meq/ Magnesium Sulfate 8 meq/Amino Ac/ Electrol/Dextrose/ Calcium 2,033.2 ml @ 80 mls/hr ONCE@1800 IV Last administered on 05/19/18at 17:57; Start 05/19/18 at 18:00; Stop 05/20/18 at 17:59; Status DC Naloxone HCl (Narcan) 0.1 mg Q5MP PRN IV SEE LABEL COMMENTS; Start 05/16/18 at 15:00 Non-Formulary Medication (Epidural/FLIGHT PHYSICIAN Vona) 1 each ASDIRECTED PRN XX SEE LABEL COMMENTS; Start 05/16/18 at 15:00 Non-Formulary Medication (Vona) ASDIRECTED PRN XX SEE LABEL COMMENTS; Start 05/16/18 at 15:00 Nystatin (Mycostatin) 5 ml QID SS Last administered on 05/21/18at 20:09; Start 05/18/18 at 13:00 Ondansetron HCl (ZOFRAN INJection) 4 mg Q6HP PRN IV REFRACTORY NAUSEA; Start 05/16/18 at 15:00 Ondansetron HCl (ZOFRAN INJection) 4 mg Q6HP PRN IV NAUSEA OR VOMITING; Start 05/12/18 at 16:15; Status Future Hold Pantoprazole Sodium (Protonix) 40 mg DAILY IV Last administered on 05/21/18at 09:13; Start 05/12/18 at 09:00 Piperacillin Sod/ Tazobactam Sod 3.375 gm/Dextrose 50 ml @ 50 mls/hr Q6H IV Last administered on 05/22/18at 05:42; Start 05/14/18 at 12:00 Potassium Chloride 10 meq/ IV Miscellaneous Supplies 100 ml @ 100 mls/hr 0630,0730,0830 IV Last administered on 05/14/18at 10:10; Start 05/14/18 at 06:30; Stop 05/14/18 at 12:00; Status DC Potassium Chloride 10 meq/ IV Miscellaneous Supplies 100 ml @ 100 mls/hr 0700,0800,0900 IV ; Start 05/22/18 at 07:00; Stop 05/22/18 at 12:00 Potassium Chloride 10 meq/ IV Miscellaneous Supplies 100 ml @ 100 mls/hr 1000,1100,1200 IV ; Start 05/22/18 at 10:00; Stop 05/22/18 at 14:00 Potassium Chloride 10 meq/ IV Miscellaneous Supplies 100 ml @ 100 mls/hr Q1H IV Last administered on 05/15/18at 16:38; Start 05/15/18 at 09:30; Stop 05/15/18 at 15:29; Status DC Potassium Chloride 10 meq/ IV Miscellaneous Supplies 100 ml @ 100 mls/hr Q1H IV Last administered on 05/16/18at 13:16; Start 05/16/18 at 12:00; Stop 05/16/18 at 13:59; Status DC Potassium Chloride 10 meq/ IV Miscellaneous Supplies 100 ml @ 100 mls/hr Q1H IV Last administered on 05/18/18at 11:36; Start 05/18/18 at 08:00; Stop 05/18/18 at 11:59; Status DC Potassium Chloride 10 meq/ IV Miscellaneous Supplies 100 ml @ 100 mls/hr Q1H IV ; Start 05/20/18 at 10:00; Stop 05/20/18 at 13:59; Status Cancel Potassium Chloride 10 meq/ IV Miscellaneous Supplies 100 ml @ 100 mls/hr Q1H IV Last administered on 05/21/18at 15:54; Start 05/21/18 at 09:00; Stop 05/21/18 at 18:59; Status DC Potassium Chloride 10 meq/ IV Miscellaneous Supplies 100 ml @ 100 mls/hr Q1H IV Last administered on 05/14/18at 21:01; Start 05/14/18 at 17:00; Stop 05/14/18 at 19:59; Status DC Potassium Chloride 20 meq/ IV Miscellaneous Supplies 100 ml @ 100 mls/hr ASDIRECTED IV ; Start 05/22/18 at 06:45; Status UNV Potassium Chloride 20 meq/ IV Miscellaneous Supplies 100 ml @ 100 mls/hr Q1H IV Last administered on 05/20/18at 11:54; Start 05/20/18 at 11:00; Stop 05/20/18 at 12:59; Status DC Potassium Chloride 20 meq/ Insulin Human Regular 10 units/ Amino Ac/Electrol/ Dextrose/Calcium 2,010.1 ml @ 80 mls/hr ONCE@1800 IV Last administered on 05/18/18at 18:19; Start 05/18/18 at 18:00; Stop 05/19/18 at 17:59; Status DC Potassium Chloride/Dextrose/ Sod Cl 1,000 ml @ 75 mls/hr [id number] IV Last administered on 05/16/18at 07:36; Start 05/14/18 at 06:15; Stop 05/16/18 at 21:33; Status DC Propofol (Diprivan) TITRATE TO MARJORIE 2-3 ASDIRECTED IV ; Start 05/16/18 at 21:00; Stop 05/16/18 at 22:30; Status DC Propofol 1000 mg/ IV Miscellaneous Supplies 100 ml @ 3.85 mls/hr Q24H IV ; Start 05/16/18 at 21:20; Stop 05/18/18 at 12:37; Status DC Sodium Chloride 1,000 ml @ 100 mls/hr Q10H IV ; Start 05/12/18 at 13:18; Stop 05/12/18 at 16:11; Status DC Vancomycin HCl 1000 mg/IV Miscellaneous Supplies 1 each/ Dextrose 270 ml @ 270 mls/hr Q12H IV Last administered on 05/21/18at 20:09; Start 05/21/18 at 08:00 Allergies Coded Allergies: No Known Allergies (Unverified , 9/24/18) Objective Physical Examination Examination GENERAL APPEARANCE: Relatively comfortable, noticeably weak, puts some effort on breathing SKIN: Warm and dry. HEENT: Pale palpebral conjunctiva. Lips are dry. Nasogastric tube in place working. NECK: Supple, no thyromegaly. No obvious jugular venous distention. LUNGS: Weak respiratory efforts but lung sounds are fairly clear. There are di minished breath sounds in the basal areas on both sides. No wheezing. HEART: Regular heart rate and rhythm. ABDOMEN: Abdomen is minimally distended, less distended than it has been last week, soft, midline incision is clean, dry and intact with abdias intact. Remains mildly tympanitic to percussion most prominent at the left upper quadrant area. Right lower quadrant ileostomy functioning with liquid stools in the bag small amount of air in the bag.. EXTREMITIES: Mild lower extremity edema. Vital Signs Vital Signs Date Time Temp Pulse Resp B/P (MAP) Pulse Ox O2 Delivery O2 Flow Rate FiO2 05/22/18 08:00 2.0 05/22/18 07:35 94 Nasal Cannula 05/22/18 04:00 98.9 76 22 124/60 (81) 05/20/18 17:35 50 I&Os I&O- Last 24 Hours up to 6 AM 05/22/18 06:00 Intake Total 3642 ml Output Total 5425 ml Balance -1783 ml Laboratory Data Labs 24H Laboratory Tests 2 05/21/18 11:30: Bedside Glucose (Misc Panel) 120H 05/21/18 17:30: Bedside Glucose (Misc Panel) 181H 05/22/18 00:17: Bedside Glucose (Misc Panel) 127H 05/22/18 05:19: Bedside Glucose (Misc Panel) 127H 05/22/18 05:22: Nucleated Red Blood Cells % (auto) 0.0 05/22/18 06:00: Anion Gap 9, Glomerular Filtration Rate 58.4, Blood Urea Nitrogen 29H, Creatinine 1.27, Sodium Level 141, Potassium Level 3.2L, Chloride Level 100, Carbon Dioxide Level 32, Calcium Level 7.4L, Aspartate Amino Transf (AST/SGOT) 53H, Alanine Aminotransferase (ALT/SGPT) 44, Alkaline Phosphatase 225H, Total Bilirubin 0.8, Total Protein 4.9L, Albumin 1.4L, Magnesium Level 1.9, Albumin/Globulin Ratio 0.40L 05/22/18 06:12: Vancomycin Level Trough 16.4 CBC/BMP Laboratory Tests 05/22/18 05:22 Red Blood Count 2.59 L, Mean Corpuscular Volume 90.3, Mean Corpuscular Hemoglobin 30.5, Mean Corpuscular Hemoglobin Concent 33.8, Red Cell Distribution Width 12.6 05/22/18 06:00 Calcium Level 7.4 L, Aspartate Amino Transf (AST/SGOT) 53 H, Alanine Aminotransferase (ALT/SGPT) 44, Alkaline Phosphatase 225 H, Total Bilirubin 0.8, Total Protein 4.9 L, Albumin 1.4 L Microbiology Microbiology 05/20/18 Blood Culture - Preliminary, Resulted No growth after 24 hours . All specim... 05/20/18 Blood Culture - Preliminary, Resulted No growth after 24 hours . All specim... 05/19/18 Blood Culture - Preliminary, Resulted No Growth after 48 hours. All Specime... 05/19/18 Blood Culture - Preliminary, Resulted No Growth after 48 hours. All Specime... 05/12/18 Blood Culture - Final, Complete NO GROWTH AFTER 5 DAYS 05/12/18 Blood Culture - Final, Complete NO GROWTH AFTER 5 DAYS Impression Postop day 6 after exploratory laparotomy, extensive lysis of adhesions, repair of enterotomy and serosal tears, release of bowel obstruction Acute hypoxemic respiratory failure secondary to above as well as to possible aspiration pneumonitis, pneumonia improving Acute renal failure from severe dehydration from the bowel obstruction improving Electrolyte derangements, hypokalemia from the NG tube losse, hypernatremia, alkalosis -- improved physical decompensation/weakness - PT He has made some noticeable improvement including signs of bowel function as well as remaining extubated. His maintaining saturations though noticeably is weak and struggle sometimes with breathing. I will keep him in PCU for now. Continue with oxygen supplementation as needed. He'll try to mobilize anymore as he is able to tolerate this. d/c santacruz catheter clamp ng and see how he tolerates it. If he tolerates clamping, I will discontinue it. continue with PT continue with TPN for now DVT prophylaxis in place Remains and epidural. We should start weaning him back and hopefully transition him to oral narcotics for pain control. Plan / VTE VTE Prophylaxis Ordered?: Yes (SQ heparin. TEDs and Sequentials.) Plan / Urinary Catheter Urinary Catheter: D/C Santacruz Reason for insertion/continuin: Critical Pt monitoring SUNNY AVALOS MD May 22, 2018 08:51
[2018-05-22] MEDS: NYSTATIN 500,000 U/5 ML SUSP UDC SS SCH ×4 (08:57→20:23)
[2018-05-22] MEDS: VANCOMYCIN HCL 1,000 MG, VIAL MATE ADAPTER 1 EACH in D5W 250 ML IV SCH ×2 (08:57→20:23)
[2018-05-22] MEDS: PANTOPRAZOLE 40MG INJ (PROTONIX) (C9113) IV SCH (08:57)
[2018-05-22] MEDS: ALVIMOPAN 12 MG CAPSULE (ENTEREG) PO SCH ×2 (08:57→20:23)
[2018-05-22] MEDS: KCL 10MEQ/100ML SWI (KRUN) 10 MEQ in APPROPRIATE DILUENT 1 EA IV SCH ×6 (08:57→17:30)
--- NOTE | 2018-05-22 11:50 | IPNPDOC ---
Subjective Date Seen The patient was seen on 05/22/18. Subjective Chief Complaint/HPI Patient seen and examined at bedside. Denies any acute complaints today. States he would like to have jello and start eating something. Denies fevers, chills, chest pain, SOB. General: Reports: Normal Appetite Constitutional: Denies: Chills, Fever ENT: Denies: Head Aches Skin: Denies: Rash Pulmonary: Reports: Cough; Denies: Dyspnea Cardiovascular: Denies: Chest Pain Gastrointestinal: Denies: Nausea, Vomiting, Abdominal Pain, Diarrhea, Constipation Genitourinary: Denies: Dysuria, Frequency Hematologic: Denies: Bruising Endocrine: Denies: Heat Intolerance, Cold Intolerance Musculoskeletal: Denies: Joint Pain, Muscle Pain Neurological: Denies: Change in speech, Confusion Psych: Reports: Mood Normal Objective Physical Examination General Exam: Positive: Alert, Cooperative, Mild Distress (Slightly labored breathing and weak voice, but appears fairly comfortable. ) Eye Exam: Negative: Sclera icteric ENT Exam: Positive: Atraumatic Neck Exam: Positive: Supple; Negative: JVD Chest Exam: Positive: Clear to auscultation, Diminished (at bilateral lung bases; some mild rhonchi in upper lung dong bilaterally;); Negative: Rales, Rhonchi, Wheezing Heart Exam: Positive: Rate Normal, Regular Rhythm, Normal S1, Normal S2; Negative: Murmurs Telemetry: Positive: No significant arrhythmia, Sinus Abdomen Exam: Positive: BS Hypoactive, Soft, Other (ileostomy site with good amount of dark brown output; bandage without any stains/drainage); Negative: Tenderness Extremity Exam: Positive: Edema (trace in lower extremities) Skin Exam: Positive: Nl turgor and temperature; Negative: Rash Neuro Exam: Positive: Normal Speech Psych Exam: Positive: Mental status NL, Mood NL Assessment /Plan Problems (1) Status post exploratory laparotomy Status: Acute Response to Treatment: Stable Problem Text: 05/22: Post-op day #6. Management as per General Surgery. Still on TPN and has NG tube that is still having output. Ileostomy output is still good. Abdomen nontender to palpation today, but still with hypoactive bowel sounds. Will reorder PT/OT today. 05/20: Is post-operative day #4. Still on TPN with K and Mg replacement as per General Surgery. Has increased output from ileostomy site now which has improved. Abdomen still distended but not as tender to palpation--improving. Still hypoactive bowel sounds on auscultation. 05/19 - per surgery On TPN 05/18: Post-operative day #2. Patient on TPN. Minimal output from ileostomy site. Will likely have prolonged course of ileus. Still diffusely tender to palpation of abdomen, but is appropriate and soft. Important to rule out postoperative fever as patient has been having fevers with Tmax of 101.2 yesterday at noontime. Consider UA. CXR from today showed: There is p leuroparenchymal opacity again noted in the left base obscuring the left hemidiaphragm as before. There is slight haziness in the right base which may reflect a small amount of right pleural fluid. Will watch for signs of pneumonia. Currently on day 5 of zosyn. 05/17: Patient is status-post exploratory laparotomy, lysis of adhesions, repair of enterotomy and serosal tears, release of bowel obstruction post-op day #1. Apparently, surgery took around 7 hours and patient is in need of ventilator support at this time post-surgery. General surgery is following and managing the SBO and Lunch Cook is consulted to help further manage respiratory support. (2) SBO (small bowel obstruction) Status: Acute Response to Treatment: Improving Problem Text: 05/22: Post-Op day #6. Management as per General Surgery. 05/20: Management as per General Surgery, now Dr. Lloyd Valente. Patient is post- op day #4. Spoke briefly to Dr. Valente who states that NG tube will not be removed today. Patient is still having a moderate amount of NG tube output, and it will still take some more time to decompress bowel. 05/18: Dr. Ontiveros of general surgery following and managing. Post-op day #2. 05/17: Status-post exp laparotomy, lysis of adhesions, and release of bowel obstruction post-operative day 1. Is on epidural fentanyl for post-operative pain control. TPN will be started by Dr. Ontiveros today and there is anticipated prolonged course of ileus until return of normal bowel function. This problem is being managed by Dr. Ontiveros of surgery. He seems to be making some improvement with the NG tube drainage, but is still pretty uncomfortable. Will defer to surgery for further management of this problem. (3) Aspiration pneumonitis Status: Acute Problem Text: 05/22: Post-operative fevers likely secondary to aspiration pneumonia vs. multifocal pneumonia (HCAP). Day #9 of Zosyn and was begun on Vancomycin yesterday for more broad spectrum coverage. WBC trending down to 12.2. Tmax was 100.1 at midnight. Has been afebrile since. CT chest on 05/20 had shown bilateral lower lobe consolidation and atelectasis, persistent R middle lobe multifactorial patchy densities, new mild patchy ground glass opacities within both upper lobes, diffuse infiltrates and small pleural effusions. 05/20: Day #7 Zosyn. WBC trending down from 16.1 to 11.8. Patient has been afebrile since 2 PM yesterday and satting in the 90s on room air. CXR today shows no significant change, bibasilar opacities and cardiomegaly status-quo. Blood cx show NGTD x 24 hours. 05/19 D#6 Zosyn. WBC up slightly B/C and f/u CXR pending - ordered by pulmonary Resp status improve - extubated on NC 05/18: Day #5 of zosyn. CXR was similar to prior. Please see under assessment #1. Continue to monitor clinically. 05/17: Likely secondary from reflux of gastric contents/secretions from NG tube. Continue zosyn. Day #4. (4) Acute respiratory failure with hypoxia Status: Acute Response to Treatment: Improving Problem Text: 05/22: Hypoxia secondary to pulmonary edema secondary to diastolic CHF/volume overload. Patient had net negative diuresis of at least 2 liters yesterday. His O2 saturation has improved and he is requiring less oxygen than 2 days ago. He is now on 2 liters O2 via nasal cannula from 6 liters previously. 05/20: Improved. Is satting in the 90s on room air without significant work of breathing. Is in NAD. Still mildly tachypneic with RR in the low 20s. 05/19 - successfully tolerated extubation - on DC today - Per Pulmonary 05/18: Trial of weaning off ventilator was not predictive of success for extubation. Dr. Hays will be performing another trial today. 05/17: Patient went into acute hypoxic respiratory failure status-post surgery yesterday. Remained intubated and was placed on mechanical ventilation. Dr. Hays will be trying to wean patient to assess weather his SBI will go to <104 and if patient can take deep and slow breaths which would indicate success if patient were to be extubated. She will determine this today. He may be able to be extubated either today or tomorrow. (5) Low hemoglobin Status: Acute Problem Text: 05/22: Patient's Hgb dropped down to 7.9. Will need to keep an eye on this and will recheck CBC in 12 hours from the one performed earlier today: at 1722. Nursing to call provider if repeat CBC shows Hgb <7.7. (6) Acute kidney injury Status: Resolved Problem Text: 05/22: Creatinine stable. Monitor renal fx due to risk of kidney injury from diuresis with lasix. 05/20: Creatinine continuing to improve and is down to 1.13 from 1.25 yesterday. 05/19 - Crea continues to improve. Na+ 151, K+ low this am Surgery managing IVF and electrolyte replacement 05/18: Cr improved today to 1.52 from 1.60 yesterday. Continue to monitor BMP. Is getting IV hydration and TPN which is a concern for 3rd spacing of fluid. Does have trace edema in bilateral lower extremities. Dr. Hays was recommending to try some lasix. 05/17: Creatinine bumped up to 1.60 today with GFR lower at 44.7 from yesterday and is likely from severe dehydration from bowel obstruction. Will continue to monitor BMP and continue IV hydration as necessary. His BUN is down a little, but his creatinine is up. Overall his GFR is down a little more today. Will continue the IV hydration and monitor. I believe that he was significantly dehydrated by the time he was admitted. (7) Hypertension Status: Chronic Response to Treatment: Stable Problem Specific Plan: Monitor Clinically Problem Text: 05/22: Stable and controlled. BP was 124/60 today. 05/20: Stable and controlled. BP 140/69 today. 05/18: stable and controlled. Not on any antihypertensives. 05/17: BP well controlled without any antihypertensives. At this time, will hold any antihypertensives. His BP is well controlled at this time. Continue current regimen. Plan/VTE VTE Prophylaxis Ordered?: Yes (SQ heparin. TEDs and Sequentials.) Plan/Urinary Catheter Reason for insertion/continuin: Critical Pt monitoring Plan IVF: Decrease VS, I&O, 24H, Fishbone Vital Signs/I&O Vital Signs Date Time Temp Pulse Resp B/P (MAP) Pulse Ox O2 Delivery O2 Flow Rate FiO2 05/22/18 08:00 2.0 05/22/18 07:35 94 Nasal Cannula 05/22/18 04:00 98.9 76 22 124/60 (81) 05/20/18 17:35 50 I&O- Last 24 Hours up to 6 AM 05/22/18 06:00 Intake Total 3642 ml Output Total 5425 ml Balance -1783 ml Laboratory Data 24H LABS Laboratory Tests 2 05/21/18 11:30: Bedside Glucose (Misc Panel) 120H 05/21/18 17:30: Bedside Glucose (Misc Panel) 181H 05/22/18 00:17: Bedside Glucose (Misc Panel) 127H 05/22/18 05:19: Bedside Glucose (Misc Panel) 127H 05/22/18 05:22: Nucleated Red Blood Cells % (auto) 0.0 05/22/18 06:00: Anion Gap 9, Glomerular Filtration Rate 58.4, Blood Urea Nitrogen 29H, Creatinine 1.27, Sodium Level 141, Potassium Level 3.2L, Chloride Level 100, Carbon Dioxide Level 32, Calcium Level 7.4L, Aspartate Amino Transf (AST/SGOT) 53H, Alanine Aminotransferase (ALT/SGPT) 44, Alkaline Phosphatase 225H, Total Bilirubin 0.8, Total Protein 4.9L, Albumin 1.4L, Magnesium Level 1.9, Albumin/Globulin Ratio 0.40L 05/22/18 06:12: Vancomycin Level Trough 16.4 CBC/BMP Laboratory Tests 05/22/18 05:22 Red Blood Count 2.59 L, Mean Corpuscular Volume 90.3, Mean Corpuscular Hemoglob in 30.5, Mean Corpuscular Hemoglobin Concent 33.8, Red Cell Distribution Width 12.6 05/22/18 06:00 Calcium Level 7.4 L, Aspartate Amino Transf (AST/SGOT) 53 H, Alanine Aminotra nsferase (ALT/SGPT) 44, Alkaline Phosphatase 225 H, Total Bilirubin 0.8, Total Protein 4.9 L, Albumin 1.4 L Microbiology Microbiology 05/20/18 Blood Culture - Preliminary, Resulted No growth after 24 hours . All specim... 05/20/18 Blood Culture - Preliminary, Resulted No growth after 24 hours . All specim... 05/19/18 Blood Culture - Preliminary, Resulted No Growth after 48 hours. All Specime... 05/19/18 Blood Culture - Preliminary, Resulted No Growth after 48 hours. All Specime... 05/12/18 Blood Culture - Final, Complete NO GROWTH AFTER 5 DAYS 05/12/18 Blood Culture - Final, Complete NO GROWTH AFTER 5 DAYS GME ATTESTATION ATTENDING NOTE Family Medicine Attending Note: I was present on site to supervise Nisha Caicedo D.O. (OGME-3). We discussed the history and exam. I confirmed the castano elements during my [id number] encounter with the patient. We conferred on the assessment and plan; I agree with the note as documented. Dr. Ontiveros ordered his Little discontinued today, however, I canceled that order, because we are still using the Little for accurate measurement of is net-negative Lasix. As soon as we are done with diuresis I'll discontinue the catheter. 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
[2018-05-22] MEDS ORDERED: FAT EMULSION IV 20% 500 ML IV SCH (18:00)
[2018-05-22] MEDS ORDERED: MULTIVITAMIN -ADULT INJECTION 10 ML, CR/CU/SE/MN/ZN INJ 1 ML, POTASSIUM CHLORIDE INJ 40... IV SCH ×5 (18:00)
[2018-05-22 18:23] LABS: BASO % 0.1 % (0.0-1.0); EOS # 0.1 10^3/uL (0.0-0.50); EOS % 1.2 % (0.0-3.0); HEMATOCRIT 23.6 % (42.0-52.0); HEMOGLOBIN 7.9 g/dl (13.5-17.5); LYMPH # 1.2 10^3/uL (1.5-4.5); LYMPH % 10.3 % (24.0-44.0); MEAN CORPUSCULAR HEMOGLOBIN 30.7 pg (27.0-33.0); MEAN CORPUSCULAR HGB CONC 33.5 g/dl (32.0-36.5); MEAN CORPUSCULAR VOLUME 91.8 fl (80.0-96.0); MONO # 0.5 10^3/uL (0.0-0.8); MONO % 4.4 % (0.0-5.0); NEUTROPHILS % 79.7 % (36.0-66.0); PLATELET COUNT, AUTOMATED 267 10^3/uL (150-450); RED BLOOD COUNT 2.57 10^6/uL (4.30-6.10); WHITE BLOOD COUNT 11.3 10^3/uL (4.0-10.0)
[2018-05-22 18:49] LABS: POTASSIUM SERUM 3.7 MEQ/L (3.5-5.1)
[2018-05-23] VITALS (7 sets, daily range): BP systolic 125–210; BP diastolic 59–98
[2018-05-23] MEDS: FUROSEMIDE 40 MG/4 ML VIAL (J1940) IV SCH ×5 (00:20→23:36)
[2018-05-23] MEDS: PIPERACILLIN/TAZOBACTAM SOD 3.375 GM in D5W MINI-BAG PLUS 50 ML IV SCH ×5 (00:20→23:36)
[2018-05-23] MEDS: KETOROLAC 30 MG/ML VIAL (J1885) IV SCH ×3 (01:26→17:27)
[2018-05-23] MEDS: FENTANYL/BUPIVACAINE/NACL BAG 250 ML EPIDURAL SCH ×2 (04:51→19:45)
[2018-05-23] MEDS: HumaLOG INSULIN (NovoLOG) PER UNIT SC SCH ×5 (06:23→23:36)
[2018-05-23] MEDS: HEPARIN SOD (PORCINE) 5000 UNITS/ML VIAL SQ SCH ×3 (06:24→21:49)
[2018-05-23 06:42] LABS: HEMATOCRIT 25.6 % (42.0-52.0); HEMOGLOBIN 8.4 g/dl (13.5-17.5); MEAN CORPUSCULAR HEMOGLOBIN 30.1 pg (27.0-33.0); MEAN CORPUSCULAR HGB CONC 32.8 g/dl (32.0-36.5); MEAN CORPUSCULAR VOLUME 91.8 fl (80.0-96.0); PLATELET COUNT, AUTOMATED 302 10^3/uL (150-450); RED BLOOD COUNT 2.79 10^6/uL (4.30-6.10); WHITE BLOOD COUNT 10.5 10^3/uL (4.0-10.0)
[2018-05-23 07:14] LABS: ALBUMIN 1.5 GM/DL (3.2-5.2); ALT/SGPT 45 U/L (12-78); BILIRUBIN,TOTAL 0.6 MG/DL (0.2-1.0); BLOOD UREA NITROGEN 24 MG/DL (7-18); CALCIUM LEVEL 7.5 MG/DL (8.8-10.2); CARBON DIOXIDE LEVEL 30 MEQ/L (21-32); CHLORIDE LEVEL 100 MEQ/L (98-107); CREATININE FOR GFR 1.18 MG/DL (0.70-1.30); GLOMERULAR FILTRATION RATE > 60.0 (>42); GLUCOSE, FASTING 112 MG/DL (70-100); MAGNESIUM LEVEL 1.9 MG/DL (1.8-2.4); POTASSIUM SERUM 3.5 MEQ/L (3.5-5.1); SODIUM LEVEL 139 MEQ/L (136-145); TOTAL PROTEIN 5.4 GM/DL (6.4-8.2)
[2018-05-23] MEDS: IPRATROPIUM 0.5MG/ALBUTEROL 2.5MG INH SOL UD 3ML (DUONEB)(J7620) NEB SCH ×4 (07:33→20:20)
--- NOTE | 2018-05-23 08:32 | ECHO ---
DATE OF STUDY: 05/22/2018 REFERRING PHYSICIAN: Dr. Tuan Ascencio INDICATION: Heart failure, unspecified. 2D MEASUREMENTS: Ventricular septum: 1.23 cm Posterior wall: 1.15 cm Left ventricle diastole: 4.5 cm Aortic root: 3.0 cm Left atrium: 2.8 cm LVOT: 2.1 cm DOPPLER MEASUREMENTS: Aortic valve velocity: 119 cm/s LVOT velocity: 125 cm/s LVOT VTI: 20.6 cm Mitral E velocity: 53.8 cm/s Mitral A velocity: 67.4 cm/s Mitral deceleration time: 261 ms Trace tricuspid regurgitation. Estimated right ventricle systolic pressure 25 mmHg, assuming a right atrial pressure of 5 mmHg. Pulmonary acceleration time 162 ms DOPPLER MEASUREMENTS: E prime lateral: 12.07 cm/s E prime septal: 5.33 cm/s DESCRIPTION: Rhythm was sinus. Image quality was fair. No subcostal views were performed because of recent abdominal surgery. No pericardial effusion. This was a 2D, M-mode, color flow Doppler and pulse wave Doppler examination and included mitral annular tissue Doppler. CONCLUSIONS: 1. Very mild focal hypertrophy of the basal anterior ventricular septum. Normal regional LV wall motion and wall thickening. Normal LV systolic function. LVEF 60% by visual estimate. Grade 1 LV diastolic dysfunction (impaired relaxation filling pattern). 2. Mild aortic valve sclerosis of a three-cuspid aortic valve. No aortic regurgitation. 3. Otherwise, normal appearing echocardiogram Doppler findings.
[2018-05-23] MEDS: ACETAMINOPHEN 325 MG/10.15 ML UDC GT PRN (08:58)
[2018-05-23] MEDS: PANTOPRAZOLE 40MG INJ (PROTONIX) (C9113) IV SCH (08:58)
[2018-05-23] MEDS: VANCOMYCIN HCL 1,000 MG, VIAL MATE ADAPTER 1 EACH in D5W 250 ML IV SCH ×2 (08:58→19:45)
[2018-05-23] MEDS: NYSTATIN 500,000 U/5 ML SUSP UDC SS SCH ×4 (08:59→21:49)
[2018-05-23] MEDS: ALVIMOPAN 12 MG CAPSULE (ENTEREG) PO SCH ×2 (08:59→21:49)
--- NOTE | 2018-05-23 11:42 | IPNPDOC ---
Subjective Date Seen The patient was seen on 05/23/18. Subjective Chief Complaint/HPI Patient seen and examined at bedside. Dr. Ontiveros has taken patient's NG tube out. Patient reports feeling a bit better today, but out of energy. Denies any other acute complaints. Is still waiting to eat his jello. Physical therapy reports that patient got up into chair today, has the motivation to participate in PT, but is deconditioned, weak, and fatigued. This is likely due to his extended hospitalization. Patient reports he does pass gas. General: Reports: Normal Appetite Constitutional: Denies: Chills, Fever ENT: Denies: Head Aches Skin: Denies: Rash Pulmonary: Denies: Dyspnea Cardiovascular: Denies: Chest Pain Gastrointestinal: Denies: Nausea, Vomiting, Abdominal Pain, Diarrhea, Constipation Genitourinary: Denies: Dysuria, Retention Hematologic: Denies: Bruising Endocrine: Denies: Heat Intolerance, Cold Intolerance Musculoskeletal: Denies: Joint Pain, Muscle Pain Neurological: Reports: Weakness (generalized); Denies: Numbness, Confusion Psych: Reports: Mood Normal Objective Physical Examination General Exam: Positive: Alert, Cooperative, Mild Distress (Improvement noted in labored breathing from prior. ), Other (Frail elderly caucasain M lying in bed comfortably. ) Eye Exam: Positive: Conjunctiva & lids normal; Negative: Sclera icteric ENT Exam: Positive: Atraumatic Neck Exam: Positive: Supple Chest Exam: Positive: Clear to auscultation, Diminished (but clearer to auscultation today than yesterday); Negative: Rales, Rhonchi, Wheezing Heart Exam: Positive: Rate Normal, Regular Rhythm, Normal S1, Normal S2; Negative: Murmurs Telemetry: Positive: No significant arrhythmia, Sinus Abdomen Exam: Positive: BS Hypoactive, Soft, Tenderness (some mild tenderness to palpation of mid-abdominal region but no other quadrants. Nondistended abdomen. Abdominal bandage at incisonal site has a small stain on it noted, but otherwise clean/dry/intact.), Other (ileostomy site with good amount of dark brown output; bandage without any stains/drainage) Extremity Exam: Negative: Edema Skin Exam: Positive: Nl turgor and temperature; Negative: Rash Neuro Exam: Positive: Normal Speech Psych Exam: Positive: Mental status NL, Mood NL, Oriented x 3 Assessment /Plan Problems (1) Status post exploratory laparotomy Status: Acute Response to Treatment: Stable Problem Text: 05/23: Post-op day #7. NG tube was discontinued today. Is still having good ileostomy output and is still on TPN. Abdomen appropriately slightly tender to palpation in mid-abdominal region today at incisional site. Still with hypoactive bowel sounds. 05/22: Post-op day #6. Management as per General Surgery. Still on TPN and has NG tube that is still having output. Ileostomy output is still good. Abdomen nontender to palpation today, but still with hypoactive bowel sounds. Will reorder PT/OT today. 05/20: Is post-operative day #4. Still on TPN with K and Mg replacement as per General Surgery. Has increased output from ileostomy site now which has improved. Abdomen still distended but not as tender to palpation--improving. Still hypoactive bowel sounds on auscultation. 05/19 - per surgery On TPN 05/18: Post-operative day #2. Patient on TPN. Minimal output from ileostomy site. Will likely have prolonged course of ileus. Still diffusely tender to palpation of abdomen, but is appropriate and soft. Important to rule out postoperative fever as patient has been having fevers with Tmax of 101.2 yesterday at noontime. Consider UA. CXR from today showed: There is pleuroparenchymal opacity again noted in the left base obscuring the left hemidiaphragm as before. There is slight haziness in the right base which may reflect a small amount of right pleural fluid. Will watch for signs of pneumonia. Currently on day 5 of zosyn. 05/17: Patient is status-post exploratory laparotomy, lysis of adhesions, repair of enterotomy and serosal tears, release of bowel obstruction post-op day #1. Apparently, surgery took around 7 hours and patient is in need of ventilator support at this time post-surgery. General surgery is following and managing the SBO and [employer] is consulted to help further manage respiratory support. (2) SBO (small bowel obstruction) Status: Acute Response to Treatment: Improving Problem Text: 05/23: Post-Op day #7. Management as per General Surgery. Have encouraged PT/OT and ordered this yesterday so that it can help with patient's post-op ileus. 05/22: Post-Op day #6. Management as per General Surgery. 05/20: Management as per General Surgery, now Dr. Lloyd Valente. Patient is post- op day #4. Spoke briefly to Dr. Valente who states that NG tube will not be removed today. Patient is still having a moderate amount of NG tube output, and it will still take some more time to decompress bowel. 05/18: Dr. Ontiveros of general surgery following and managing. Post-op day #2. 05/17: Status-post exp laparotomy, lysis of adhesions, and release of bowel obstruction post-operative day 1. Is on epidural fentanyl for post-operative pain control. TPN will be started by Dr. Ontiveros today and there is anticipated prolonged course of ileus until return of normal bowel function. This problem is being managed by Dr. Ontiveros of surgery. He seems to be making some improvement with the NG tube drainage, but is still pretty uncomfortable. Will defer to surgery for further management of this problem. (3) Aspiration pneumonitis Status: Acute Problem Text: 05/23: Day #10 of Zosyn and Day #3 of Vancomycin. WBC trending down to 10.5. Tmax was 100.7 at midnight last night. Currently, patient has been afebrile since. 05/22: Post-operative fevers likely secondary to aspiration pneumonia vs. multifocal pneumonia (HCAP). Day #9 of Zosyn and was begun on Vancomycin yesterday for more broad spectrum coverage. WBC trending down to 12.2. Tmax was 100.1 at midnight. Has been afebrile since. CT chest on 05/20 had shown bilateral lower lobe consolidation and atelectasis, persistent R middle lobe multifactorial patchy densities, new mild patchy ground glass opacities within both upper lobes, diffuse infiltrates and small pleural effusions. 05/20: Day #7 Zosyn. WBC trending down from 16.1 to 11.8. Patient has been afebrile since 2 PM yesterday and satting in the 90s on room air. CXR today shows no significant change, bibasilar opacities and cardiomegaly status-quo. Blood cx show NGTD x 24 hours. 05/19 D#6 Zosyn. WBC up slightly B/C and f/u CXR pending - ordered by pulmonary Resp status improve - extubated on NC 05/18: Day #5 of zosyn. CXR was similar to prior. Please see under assessment #1. Continue to monitor clinically. 05/17: Likely secondary from reflux of gastric contents/secretions from NG tube. Continue zosyn. Day #4. (4) Acute respiratory failure with hypoxia Status: Acute Response to Treatment: Improving Problem Text: 05/23: Patient's O2 saturation was 93% on 2L nasal cannula. Have instructed staff to titrate patient's O2 above 90%, but not too high so as to avoid oxygen toxicity. Patient is still having net negative diuresis of 2.831 liters yesterday and -1.4 liters today. Is having good urine output: 1.99 mL/kg/hr. Weight is down from 67.9 kg to 66.4 kg today. Still on lasix 40 mg q6h IV. His lungs sound much clearer to me today. I believe his respiratory status has clinically improved from prior. Will continue santacruz for now to monitor net negative diuresis until this is complete. Also has epidural for pain control. 05/22: Hypoxia secondary to pulmonary edema secondary to diastolic CHF/volume overload. Patient had net negative diuresis of at least 2 liters yesterday. His O2 saturation has improved and he is requiring less oxygen than 2 days ago. He is now on 2 liters O2 via nasal cannula from 6 liters previously. 05/20: Improved. Is satting in the 90s on room air without significant work of breathing. Is in NAD. Still mildly tachypneic with RR in the low 20s. 05/19 - successfully tolerated extubation - on IA today - Per Pulmonary 05/18: Trial of weaning off ventilator was not predictive of success for extubation. Dr. Hays will be performing another trial today. 05/17: Patient went into acute hypoxic respiratory failure status-post surgery yesterday. Remained intubated and was placed on mechanical ventilation. Dr. Hays will be trying to wean patient to assess weather his SBI will go to <104 and if patient can take deep and slow breaths which would indicate success if patient were to be extubated. She will determine this today. He may be able to be extubated either today or tomorrow. (5) Low hemoglobin Status: Acute Problem Text: 05/23: Patient's Hgb last night was 7.9 and did not drop below 7.9 from yesterday AM. This morning, Hgb was 8.4. It is thus stable. We will continue to monitor his CBC and hold off on transfusion for now. 05/22: Patient's Hgb dropped down to 7.9. Will need to keep an eye on this and will recheck CBC in 12 hours from the one performed earlier today: at 1722. Nursing to call provider if repeat CBC shows Hgb <7.7. (6) Acute kidney injury Status: Resolved Problem Text: 05/23: Cr 1.18 and stable. Continue monitoring via BMP. On lasix for diuresis. 05/22: Creatinine stable. Monitor renal fx due to risk of kidney injury from diuresis with lasix. 05/20: Creatinine continuing to improve and is down to 1.13 from 1.25 yesterday. 05/19 - Crea continues to improve. Na+ 151, K+ low this am Surgery managing IVF and electrolyte replacement 05/18: Cr improved today to 1.52 from 1.60 yesterday. Continue to monitor BMP. Is getting IV hydration and TPN which is a concern for 3rd spacing of fluid. Does have trace edema in bilateral lower extremities. Dr. Hays was recommending to try some lasix. 05/17: Creatinine bumped up to 1.60 today with GFR lower at 44.7 from yesterday and is likely from severe dehydration from bowel obstruction. Will continue to monitor BMP and continue IV hydration as necessary. His BUN is down a little, but his creatinine is up. Overall his GFR is down a little more today. Will continue the IV hydration and monitor. I believe that he was significantly dehydrated by the time he was admitted. (7) Hypertension Status: Chronic Response to Treatment: Stable Problem Specific Plan: Monitor Clinically Problem Text: 05/23: Stable and controlled. 05/22: Stable and controlled. BP was 124/60 today. 05/20: Stable and controlled. BP 140/69 today. 05/18: stable and controlled. Not on any antihypertensives. 05/17: BP well controlled without any antihypertensives. At this time, will hold any antihypertensives. His BP is well controlled at this time. Continue current regimen. Plan/VTE VTE Prophylaxis Ordered?: Yes (SQ heparin. TEDs and Sequentials.) Plan/Urinary Catheter Urinary Catheter: D/C Santacruz Reason for insertion/continuin: Critical Pt monitoring Plan IVF: Decrease Disposition Pending PT/OT. Will also order PM&R consults. Patient was highly functioning prior to hospitalization. Is now physically deconditioned due to extended hospitalization. VS, I&O, 24H, Fishbone Vital Signs/I&O Vital Signs Date Time Temp Pulse Resp B/P (MAP) Pulse Ox O2 Delivery O2 Flow Rate FiO2 05/23/18 08:00 100.5 80 18 157/71 (99) 98 Nasal Cannula 2.0 05/20/18 17:35 50 I&O- Last 24 Hours up to 6 AM 05/23/18 06:00 Intake Total 2084 ml Output Total 4425 ml Balance -2341 ml Laboratory Data 24H LABS Laboratory Tests 2 05/22/18 17:36: Bedside Glucose (Misc Panel) 139H 05/22/18 18:16: Immature Granulocyte % (Auto) 4.3H, White Blood Count 11.3H, Red Blood Count 2.57L, Hemoglobin 7.9L, Hematocrit 23.6L, Mean Corpuscular Volume 91.8, Mean Corpuscular Hemoglobin 30.7, Mean Corpuscular Hemoglobin Concent 33.5, Red Cell Distribution Width 12.8, Platelet Count 267, Neutrophils (%) (Auto) 79.7H, Lymphocytes (%) (Auto) 10.3L, Monocytes (%) (Auto) 4.4, Eosinophils (%) (Auto) 1.2, Basophils (%) (Auto) 0.1, Neutrophils # (Auto) 9.0H, Lymphocytes # (Auto) 1.2L, Monocytes # (Auto) 0.5, Eosinophils # (Auto) 0.1, Basophils # (Auto) 0.0, Nucleated Red Blood Cells % (auto) 0.0, Sodium Level 140, Potassium Level 3.7, Chloride Level 100, Carbon Dioxide Level 32, Anion Gap 8 05/23/18 00:18: Bedside Glucose (Misc Panel) 148H 05/23/18 06:04: Bedside Glucose (Misc Panel) 120H 05/23/18 06:20: Nucleated Red Blood Cells % (auto) 0.0, Anion Gap 9, Glomerular Filtration Rate > 60.0, Blood Urea Nitrogen 24H, Creatinine 1.18, Sodium Level 139, Potassium Level 3.5, Chloride Level 100, Carbon Dioxide Level 30, Calcium Level 7.5L, A spartate Amino Transf (AST/SGOT) 39H, Alanine Aminotransferase (ALT/SGPT) 45, Alkaline Phosphatase 262H, Total Bilirubin 0.6, Total Protein 5.4L, Albumin 1.5L, Magnesium Level 1.9, Albumin/Globulin Ratio 0.38L CBC/BMP Laboratory Tests 05/22/18 18:16 Red Blood Count 2.57 L, Mean Corpuscular Volume 91.8, Mean Corpuscular Hemoglobin 30.7, Mean Corpuscular Hemoglobin Concent 33.5, Red Cell Distribution Width 12.8, Neutrophils (%) (Auto) 79.7 H, Lymphocytes (%) (Auto) 10.3 L, M onocytes (%) (Auto) 4.4, Eosinophils (%) (Auto) 1.2, Basophils (%) (Auto) 0.1, Neutrophils # (Auto) 9.0 H, Lymphocytes # (Auto) 1.2 L, Monocytes # (Auto) 0.5, Eosinophils # (Auto) 0.1, Basophils # (Auto) 0.0, Anion Gap 8 05/23/18 06:20 Red Blood Count 2.79 L, Mean Corpuscular Volume 91.8, Mean Corpuscular Hemoglobin 30.1, Mean Corpuscular Hemoglobin Concent 32.8, Red Cell Distribution Width 12.6, Calcium Level 7.5 L, Aspartate Amino Transf (AST/SGOT) 39 H, Alanine Aminotransferase (ALT/SGPT) 45, Alkaline Phosphatase 262 H, Total Bilirubin 0.6, Total Protein 5.4 L, Albumin 1.5 L Microbiology Microbiology 05/20/18 Blood Culture - Preliminary, Resulted No Growth after 48 hours. All Specime... 05/20/18 Blood Culture - Preliminary, Resulted No Growth after 48 hours. All Specime... 05/19/18 Blood Culture - Preliminary, Resulted No Growth after 72 hours. All specime... 05/19/18 Blood Culture - Preliminary, Resulted No Growth after 72 hours. All specime... GME ATTESTATION ATTENDING NOTE Family Medicine Attending Note: I was present on site to supervise Nisha Caicedo D.O. (OGME-3). We discussed the history and exam. I confirmed the castano elements during my [id number] encounter with the patient. We conferred on the assessment and plan; I agree with the note as documented. Mr. Stanley is doing much better today. He feels good with the NG tube out. We still have the Santacruz catheter in for a net negative monitoring. Also he has his epidural still in. I would like to be able to take the catheter out soon. (health care liaison) BERYL CAICEDO DO May 23, 2018 11:05 am Andriy Leslie MD May 23, 2018 9:38 pm
--- NOTE | 2018-05-23 12:35 | IPNPDOC ---
Subjective General Date/Time Seen The patient was seen on 05/23/18 at 10:49. Subject Chief Complaint/History The patient is a 78-year-old male admitted with a reason for visit of [place] Obstruction. Patient continues to report being comfortable with regards to his abdomen. His nasogastric tube has been clamped for over 24 ours any denies nausea. Not much nonvisible increased abdominal distention. He continues to have loose output from his ileostomy. He seems to be breathing slightly better, he is here today. Current Medications Current Medications Current Medications Acetaminophen (Tylenol Suspension) 650 mg Q4HP PRN GT PAIN OR FEVER Last administered on 05/23/18 08:58; Start 05/17/18 at 09:15 Albuterol Sulfate (Proventil Neb) 2.5 mg Q4HP PRN NEB SHORTNESS OF BREATH Last administered on 05/18/18at 14:57; Start 05/14/18 at 16:00 Albuterol Sulfate (Proventil Neb) 2.5 mg RQ4H NEB Last administered on 05/14/18at 15:51; Start 05/14/18 at 16:00; Stop 05/14/18 at 16:00; Status DC Albuterol/ Ipratropium (Duoneb (Ipr 0.5mg/Alb 2.5mg)) 3 ml RQ4H NEB Last administered on 05/18/18at 11:08; Start 05/17/18 at 00:00; Stop 05/18/18 at 12:38; Status DC Albuterol/ Ipratropium (Duoneb (Ipr 0.5mg/Alb 2.5mg)) 3 ml RQID NEB Last administered on 05/23/18at 07:33; Start 05/20/18 at 20:00 Alvimopan (Entereg) 12 mg BID PO Last administered on 05/23/18at 08:59; Start 05/19/18 at 09:00; Stop 05/25/18 at 21:01 Amino Ac/Electrol/ Dextrose/Calcium 2,000 ml @ 50 mls/hr ONCE@1800 IV Last administered on 05/21/18at 12:39; Start 05/20/18 at 18:00; Stop 05/21/18 at 17:59; Status DC Amlodipine Besylate (Norvasc) 5 mg DAILY PO Last administered on 05/16/18at 08:30; Start 05/13/18 at 09:00; Stop 05/16/18 at 23:33; Status DC Chlorhexidine Gluconate (Peridex Oral Rinse) SWAB/BRUSH ORAL CAVITY BID MT Last administered on 05/18/18at 08:42; Start 05/17/18 at 09:00; Stop 05/18/18 at 12:37; Status DC Dextrose/Water 1,000 ml @ 100 mls/hr Q10H IV Last administered on 05/20/18at 00:00; Start 05/19/18 at 09:00; Stop 05/20/18 at 15:19; Status DC Diphenhydramine HCl (Benadryl) 12.5 mg Q4HP PRN IV ITCHING; Start 05/16/18 at 15:00 Fat Emulsion Intravenous 500 ml @ 20 mls/hr ONCE@1800 IV Last administered on 05/17/18at 17:38; Start 05/17/18 at 18:00; Stop 05/18/18 at 17:59; Status DC Fat Emulsion Intravenous 500 ml @ 20 mls/hr ONCE@1800 IV Last administered on 05/18/18at 18:20; Start 05/18/18 at 18:00; Stop 05/19/18 at 17:59; Status DC Fat Emulsion Intravenous 500 ml @ 20 mls/hr ONCE@1800 IV Last administered on 05/19/18at 17:56; Start 05/19/18 at 18:00; Stop 05/20/18 at 17:59; Status DC Fat Emulsion Intravenous 500 ml @ 20 mls/hr ONCE@1800 IV Last administered on 05/21/18at 12:38; Start 05/20/18 at 18:00; Stop 05/21/18 at 17:59; Status DC Fat Emulsion Intravenous 500 ml @ 20 mls/hr ONCE@1800 IV Last administered on 05/21/18at 17:49; Start 05/21/18 at 18:00; Stop 05/22/18 at 17:59; Status DC Fat Emulsion Intravenous 500 ml @ 20 mls/hr ONCE@1800 IV Last administered on 05/22/18at 18:17; Start 05/22/18 at 18:00; Stop 05/23/18 at 17:59 Fentanyl Citrate (Sublimaze) 25 mcg Q5MP PRN IV MODERATE PAIN (PS 4-7); Start 05/16/18 at 21:00; Stop 05/16/18 at 22:30; Status DC Fentanyl/ Bupivacaine HCl 250 ml @ 12 mls/hr [id number] EPIDURAL Last administered on 05/23/18at 04:51; Start 05/16/18 at 15:00 Furosemide (LASIX injection) 40 mg DAILY IV ; Start 05/19/18 at 09:00; Stop 05/19/18 at 09:00; Status DC Furosemide (LASIX injection) 40 mg Q6H IV Last administered on 05/23/18at 00:20; Start 05/21/18 at 00:00 Heparin Sodium (Porcine) (Heparin) 5,000 units Q12H SQ Last administered on 05/18/18at 22:01; Start 05/13/18 at 09:00; Stop 05/19/18 at 08:52; Status DC Heparin Sodium (Porcine) (Heparin) 5,000 units Q8H SQ Last administered on 05/23/18at 06:24; Start 05/19/18 at 14:00 Home Med (Med Rec Complete!) ASDIRECTED XX ; Start 05/12/18 at 16:15; Stop 05/12/18 at 16:15; Status DC Insulin Human Lispro (HumaLOG INSULIN) See Protocol Table Q6H SC Last administered on 05/18/18at 12:33; Start 05/17/18 at 18:00; Stop 05/18/18 at 12:01; Status DC Insulin Human Lispro (HumaLOG INSULIN) See Protocol Table Q6H SC Last administered on 05/19/18at 11:27; Start 05/18/18 at 18:00; Stop 05/19/18 at 12:01; Status DC Insulin Human Lispro (HumaLOG INSULIN) See Protocol Table Q6H SC Last administered on 05/20/18at 12:04; Start 05/19/18 at 18:00; Stop 05/20/18 at 12:01; Status DC Insulin Human Lispro (HumaLOG INSULIN) See Protocol Table Q6H SC ; Start 05/20/18 at 18:00; Stop 05/21/18 at 12:01; Status DC Insulin Human Lispro (HumaLOG INSULIN) See Protocol Table Q6H SC Last ad ministered on 05/22/18at 05:41; Start 05/21/18 at 18:00; Stop 05/22/18 at 12:01; Status DC Insulin Human Lispro (HumaLOG INSULIN) See Protocol Table Q6H SC Last administered on 05/23/18at 06:23; Start 05/22/18 at 18:00; Stop 05/23/18 at 12:01 Insulin Human Regular 33 units/ Potassium Chloride 67 meq/ Magnesium Sulfate 13 meq/Amino Ac/ Electrol/Dextrose/ Calcium 2,037.08 ml @ 50 mls/hr ONCE@1800 IV Last administered on 05/21/18at 17:49; Start 05/21/18 at 18:00; Stop 05/22/18 at 17:59; Status DC Ketorolac Tromethamine (ToRADol) 15 mg Q8H IV Last administered on 05/23/18at 09:01; Start 05/19/18 at 10:00; Stop 05/24/18 at 09:59 Lactated Ringer's 1,000 ml @ 150 mls/hr Q6H40M IV Last administered on 05/17/18at 12:16; Start 05/16/18 at 21:45; Stop 05/17/18 at 17:56; Status DC Lactated Ringer's 1,000 ml @ 150 mls/hr Q6H40M IV Last administered on 05/14/18at 05:03; Start 05/12/18 at 17:00; Stop 05/14/18 at 09:41; Status DC Magnesium Sulfate/ Dextrose 1 gm/IV Miscellaneous Supplies 100 ml @ 100 mls/hr Q1H IV Last administered on 05/20/18at 12:04; Start 05/20/18 at 10:00; Stop 05/20/18 at 11:59; Status DC Metoclopramide HCl (REGLAN INJection) 10 mg Q6HP PRN IV NAUSEA; Start 05/16/18 at 15:00 Midazolam HCl (Versed) 2 mg Q15MP PRN IV AGITATION Last administered on 05/18/18at 04:02; Start 05/16/18 at 21:30; Stop 05/18/18 at 12:37; Status DC Miscellaneous (Unresolved Clarification Entry) SEE LABEL COMMENTS DAILY XX ; Start 05/18/18 at 09:00; Stop 05/18/18 at 09:10; Status DC Miscellaneous (Unresolved Clarification Entry) SEE LABEL COMMENTS DAILY XX ; St art 05/19/18 at 09:00; Stop 05/19/18 at 16:27; Status DC Miscellaneous (Unresolved Clarification Entry) SEE LABEL COMMENTS DAILY XX ; Start 05/22/18 at 09:00 Morphine Sulfate (Morphine Sulfate Inj) 2 mg Q15M PRN IV MODERATE/SEVERE PAIN (PS 5-10) Last administered on 05/12/18at 16:01; Start 05/12/18 at 13:30; Stop 05/12/18 at 16:01; Status DC Morphine Sulfate (Morphine Sulfate Inj) 2 mg Q2HP PRN IV BREAKTHROUGH PAIN; Start 05/16/18 at 21:30; Stop 05/17/18 at 09:11; Status DC Morphine Sulfate (Morphine Sulfate Inj) 4 mg Q2HP PRN IV SEVERE PAIN (PS 8-10) Last administered on 05/14/18at 02:02; Start 05/12/18 at 16:15; Stop 05/16/18 at 21:33; Status DC Multivitamins 10 ml/Chromium/ Copper/Manganese/ Seleni/Zn 1 ml/ Amino Ac/Electrol/ Dextrose/Calcium 2,011 ml @ 80 mls/hr ONCE@1800 IV Last administered on 05/17/18at 17:38; Start 05/17/18 at 18:00; Stop 05/18/18 at 17:59; Status DC Multivitamins 10 ml/Chromium/ Copper/Manganese/ Seleni/Zn 1 ml/ Insulin Human Regular 20 units/ Potassium Chloride 40 meq/ Magnesium Sulfate 8 meq/Amino Ac/ Electrol/Dextrose/ Calcium 2,033.2 ml @ 80 mls/hr ONCE@1800 IV Last administered on 05/19/18at 17:57; Start 05/19/18 at 18:00; Stop 05/20/18 at 17:59; Status DC Multivitamins 10 ml/Chromium/ Copper/Manganese/ Seleni/Zn 1 ml/ Potassium Chloride 40 meq/ Insulin Human Regular 20 units/ Amino Ac/Electrol/ Dextrose/Calcium 2,031.2 ml @ 70 mls/hr ONCE@1800 IV Last administered on 05/22/18at 18:16; Start 05/22/18 at 18:00; Stop 05/23/18 at 17:59 Naloxone HCl (Narcan) 0.1 mg Q5MP PRN IV SEE LABEL COMMENTS; Start 05/16/18 at 15:00 Non-Formulary Medication (Epidural/VOICER [place]) 1 each ASDIRECTED PRN XX SEE LABEL COMMENTS; Start 05/16/18 at 15:00 Non-Formulary Medication ([place]) ASDIRECTED PRN XX SEE LABEL COMMENTS; Start 05/16/18 at 15:00 Nystatin (Mycostatin) 5 ml QID SS Last administered on 05/23/18at 08:59; Start 05/18/18 at 13:00 Ondansetron HCl (ZOFRAN INJection) 4 mg Q6HP PRN IV REFRACTORY NAUSEA; Start 05/16/18 at 15:00 Ondansetron HCl (ZOFRAN INJection) 4 mg Q6HP PRN IV NAUSEA OR VOMITING; Start 05/12/18 at 16:15; Status Future Hold Pantoprazole Sodium (Protonix) 40 mg DAILY IV Last administered on 05/23/18at 08:58; Start 05/12/18 at 09:00 Piperacillin Sod/ Tazobactam Sod 3.375 gm/Dextrose 50 ml @ 50 mls/hr Q6H IV Last administered on 05/23/18at 06:26; Start 05/14/18 at 12:00 Potassium Chloride 10 meq/ IV Miscellaneous Supplies 100 ml @ 100 mls/hr 0630,0730,0830 IV Last administered on 05/14/18at 10:10; Start 05/14/18 at 06:30; Stop 05/14/18 at 12:00; Status DC Potassium Chloride 10 meq/ IV Miscellaneous Supplies 100 ml @ 100 mls/hr 0700,0800,0900 IV Last administered on 05/22/18at 13:02; Start 05/22/18 at 07:00; Stop 05/22/18 at 12:00; Status DC Potassium Chloride 10 meq/ IV Miscellaneous Supplies 100 ml @ 100 mls/hr 1000,1100,1200 IV Last administered on 05/22/18at 17:30; Start 05/22/18 at 10:00; Stop 05/22/18 at 14:00; Status DC Potassium Chloride 10 meq/ IV Miscellaneous Supplies 100 ml @ 100 mls/hr Q1H IV Last administered on 05/15/18at 16:38; Start 05/15/18 at 09:30; Stop 05/15/18 at 15:29; Status DC Potassium Chloride 10 meq/ IV Miscellaneous Supplies 100 ml @ 100 mls/hr Q1H IV Last administered on 05/16/18at 13:16; Start 05/16/18 at 12:00; Stop 05/16/18 at 13:59; Status DC Potassium Chloride 10 meq/ IV Miscellaneous Supplies 100 ml @ 100 mls/hr Q1H IV Last administered on 05/18/18at 11:36; Start 05/18/18 at 08:00; Stop 05/18/18 at 11:59; Status DC Potassium Chloride 10 meq/ IV Miscellaneous Supplies 100 ml @ 100 mls/hr Q1H IV ; Start 05/20/18 at 10:00; Stop 05/20/18 at 13:59; Status Cancel Potassium Chloride 10 meq/ IV Miscellaneous Supplies 100 ml @ 100 mls/hr Q1H IV Last administered on 05/21/18at 15:54; Start 05/21/18 at 09:00; Stop 05/21/18 at 18:59; Status DC Potassium Chloride 10 meq/ IV Miscellaneous Supplies 100 ml @ 100 mls/hr Q1H IV Last administered on 05/14/18at 21:01; Start 05/14/18 at 17:00; Stop 05/14/18 at 19:59; Status DC Potassium Chloride 20 meq/ IV Miscellaneous Supplies 100 ml @ 100 mls/hr ASDIRECTED IV ; Start 05/22/18 at 06:45; Status UNV Potassium Chloride 20 meq/ IV Miscellaneous Supplies 100 ml @ 100 mls/hr Q1H IV Last administered on 05/20/18at 11:54; Start 05/20/18 at 11:00; Stop 05/20/18 at 12:59; Status DC Potassium Chloride 20 meq/ Insulin Human Regular 10 units/ Amino Ac/Electrol/ Dextrose/Calcium 2,010.1 ml @ 80 mls/hr ONCE@1800 IV Last administered on 05/18/18at 18:19; Start 05/18/18 at 18:00; Stop 05/19/18 at 17:59; Status DC Potassium Chloride/Dextrose/ Sod Cl 1,000 ml @ 75 mls/hr [id number] IV Last administered on 05/16/18at 07:36; Start 05/14/18 at 06:15; Stop 05/16/18 at 21:33; Status DC Propofol (Diprivan) TITRATE TO MARJORIE 2-3 ASDIRECTED IV ; Start 05/16/18 at 21:00; Stop 05/16/18 at 22:30; Status DC Propofol 1000 mg/ IV Miscellaneous Supplies 100 ml @ 3.85 mls/hr Q24H IV ; Start 05/16/18 at 21:20; Stop 05/18/18 at 12:37; Status DC Sodium Chloride 1,000 ml @ 100 mls/hr Q10H IV ; Start 05/12/18 at 13:18; Stop 05/12/18 at 16:11; Status DC Vancomycin HCl 1000 mg/IV Miscellaneous Supplies 1 each/ Dextrose 270 ml @ 270 mls/hr Q12H IV Last administered on 05/23/18at 08:58; Start 05/21/18 at 08:00 Allergies Coded Allergies: No Known Allergies (Unverified , 02/27/18) Objective Physical Examination Examination GENERAL APPEARANCE: Looks more comfortable today. SKIN: Warm and dry. HEENT: Normocephalic, atraumatic. [place] palpebral conjunctiva, anicteric sclerae. Lips and mucosa appear dry. NECK: Supple, no thyromegaly. No obvious jugular venous distention. LUNGS: Clear to auscultation anteriorly upper area slight decrease of the basal areas bilaterally. HEART: No chest wall abnormalities. Regular rate and rhythm with no murmurs appreciated. ABDOMEN: Abdomen is mild distended, soft, slightly tympanitic to percussion. Midline incision which is mostly intact scant amount of drainage around the umbilicus. Right-sided ileostomy with liquid stool output. EXTREMITIES: Improving lower extremity edema minimal. Vital Signs Vital Signs Date Time Temp Pulse Resp B/P (MAP) Pulse Ox O2 Delivery O2 Flow Rate FiO2 05/23/18 08:00 100.5 80 18 157/71 (99) 98 Nasal Cannula 2.0 05/20/18 17:35 50 I&Os I&O- Last 24 Hours up to 6 AM 05/23/18 06:00 Intake Total 2084 ml Output Total 4425 ml Balance -2341 ml Laboratory Data Labs 24H Laboratory Tests 2 05/22/18 11:00: Bedside Glucose (Misc Panel) 145H 05/22/18 17:36: Bedside Glucose (Misc Panel) 139H 05/22/18 18:16: Immature Granulocyte % (Auto) 4.3H, White Blood Count 11.3H, Red Blood Count 2.57L, Hemoglobin 7.9L, Hematocrit 23.6L, Mean Corpuscular Volume 91.8, Mean Corpuscular Hemoglobin 30.7, Mean Corpuscular Hemoglobin Concent 33.5, Red Cell Distribution Width 12.8, Platelet Count 267, Neutrophils (%) (Auto) 79.7H, Lymphocytes (%) (Auto) 10.3L, Monocytes (%) (Auto) 4.4, Eosinophils (%) (Auto) 1.2, Basophils (%) (Auto) 0.1, Neutrophils # (Auto) 9.0H, Lymphocytes # (Auto) 1.2L, Monocytes # (Auto) 0.5, Eosinophils # (Auto) 0.1, Basophils # (Auto) 0.0, Nucleated Red Blood Cells % (auto) 0.0, Sodium Level 140, Potassium Level 3.7, Chloride Level 100, Carbon Dioxide Level 32, Anion Gap 8 05/23/18 00:18: Bedside Glucose (Misc Panel) 148H 05/23/18 06:04: Bedside Glucose (Misc Panel) 120H 05/23/18 06:20: Nucleated Red Blood Cells % (auto) 0.0, Anion Gap 9, Glomerular Filtration Rate > 60.0, Blood Urea Nitrogen 24H, Creatinine 1.18, Sodium Level 139, Potassium Level 3.5, Chloride Level 100, Carbon Dioxide Level 30, Calcium Level 7.5L, Aspartate Amino Transf (AST/SGOT) 39H, Alanine Aminotransferase (ALT/SGPT) 45, Alkaline Phosphatase 262H, Total Bilirubin 0.6, Total Protein 5.4L, Albumin 1.5L, Magnesium Level 1.9, Albumin/Globulin Ratio 0.38L CBC/BMP Laboratory Tests 05/22/18 18:16 Red Blood Count 2.57 L, Mean Corpuscular Volume 91.8, Mean Corpuscular Hemoglobin 30.7, Mean Corpuscular Hemoglobin Concent 33.5, Red Cell Distribution Width 12.8, Neutrophils (%) (Auto) 79.7 H, Lymphocytes (%) (Auto) 10.3 L, Monocytes (%) (Auto) 4.4, Eosinophils (%) (Auto) 1.2, Basophils (%) (Auto) 0.1, Neutrophils # (Auto) 9.0 H, Lymphocytes # (Auto) 1.2 L, Monocytes # (Auto) 0.5, Eosinophils # (Auto) 0.1, Basophils # (Auto) 0.0, Anion Gap 8 05/23/18 06:20 Red Blood Count 2.79 L, Mean Corpuscular Volume 91.8, Mean Corpuscular Hemoglobin 30.1, Mean Corpuscular Hemoglobin Concent 32.8, Red Cell Distribution Width 12.6, Calcium Level 7.5 L, Aspartate Amino Transf (AST/SGOT) 39 H, Alanine Aminotransferase (ALT/SGPT) 45, Alkaline Phosphatase 262 H, Total Bilirubin 0.6, Total Protein 5.4 L, Albumin 1.5 L Microbiology Microbiology 05/20/18 Blood Culture - Preliminary, Resulted No Growth after 48 hours. All Specime... 05/20/18 Blood Culture - Preliminary, Resulted No Growth after 48 hours. All Specime... 05/19/18 Blood Culture - Preliminary, Resulted No Growth after 72 hours. All specime... 05/19/18 Blood Culture - Preliminary, Resulted No Growth after 72 hours. All specime... Impression Postop day 7 after exploratory laparotomy, extensive lysis of adhesions, repair of enterotomy and serosal tears, release of bowel obstruction Acute hypoxemic respiratory failure secondary to above as well as to possible aspiration pneumonitis, pneumonia improving Acute renal failure from severe dehydration from the bowel obstruction improving Electrolyte derangements, hypokalemia from the NG tube losse, hypernatremia, alkalosis -- improved physical decompensation/weakness - PT He has made some noticeable improvement including signs of bowel function as well as remaining extubated. His maintaining saturations though noticeably is weak and struggle sometimes with breathing. I will keep him in PCU for now. Continue with oxygen supplementation as needed. He'll try to mobilize anymore as he is able to tolerate this. He has tolerated clamping of the NG tube within 24 hours without any reports of nausea and noticeably increased distention. DC nasogastric tube. I will allow him to try clear liquids but avoid carbonated drinks. He is working with physical therapy Continue TPN for now and start weaning him off the epidural. Plan / VTE VTE Prophylaxis Ordered?: Yes (SQ heparin. TEDs and Sequentials.) Plan / Urinary Catheter Urinary Catheter: D/C [place] Reason for insertion/continuin: Critical Pt monitoring SUNNY AVALOS MD May 23, 2018 10:56
[2018-05-23] MEDS ORDERED: FAT EMULSION IV 20% 500 ML IV SCH (18:00)
[2018-05-23] MEDS ORDERED: [UNRECOGNIZED DRUG - OTHER] IV SCH (18:00)
[2018-05-23] MEDS ORDERED: POTASSIUM CHLORIDE IV SCH (18:00)
[2018-05-23] MEDS ORDERED: INSULIN HUMAN REGULAR IV SCH (18:00)
[2018-05-24] MEDS: ACETAMINOPHEN 325 MG/10.15 ML UDC GT PRN (00:33)
[2018-05-24] MEDS: KETOROLAC 30 MG/ML VIAL (J1885) IV SCH (02:03)
[2018-05-24 04:00] VITALS: BP 135/66
[2018-05-24] MEDS: FUROSEMIDE 40 MG/4 ML VIAL (J1940) IV SCH ×3 (06:35→17:04)
[2018-05-24] MEDS: HEPARIN SOD (PORCINE) 5000 UNITS/ML VIAL SQ SCH ×3 (06:36→21:25)
[2018-05-24] MEDS: PIPERACILLIN/TAZOBACTAM SOD 3.375 GM in D5W MINI-BAG PLUS 50 ML IV SCH ×3 (06:36→17:04)
[2018-05-24] MEDS: HumaLOG INSULIN (NovoLOG) PER UNIT SC SCH ×2 (06:45→12:59)
[2018-05-24 06:51] LABS: HEMATOCRIT 24.8 % (42.0-52.0); HEMOGLOBIN 8.1 g/dl (13.5-17.5); MEAN CORPUSCULAR HEMOGLOBIN 30.1 pg (27.0-33.0); MEAN CORPUSCULAR HGB CONC 32.7 g/dl (32.0-36.5); MEAN CORPUSCULAR VOLUME 92.2 fl (80.0-96.0); PLATELET COUNT, AUTOMATED 317 10^3/uL (150-450); RED BLOOD COUNT 2.69 10^6/uL (4.30-6.10); WHITE BLOOD COUNT 11.2 10^3/uL (4.0-10.0)
[2018-05-24 07:49] LABS: ALBUMIN 1.4 GM/DL (3.2-5.2); ALT/SGPT 42 U/L (12-78); BILIRUBIN,TOTAL 0.6 MG/DL (0.2-1.0); BLOOD UREA NITROGEN 22 MG/DL (7-18); CALCIUM LEVEL 7.6 MG/DL (8.8-10.2); CARBON DIOXIDE LEVEL 31 MEQ/L (21-32); CHLORIDE LEVEL 102 MEQ/L (98-107); CREATININE FOR GFR 1.09 MG/DL (0.70-1.30); GLOMERULAR FILTRATION RATE > 60.0 (>42); GLUCOSE, FASTING 132 MG/DL (70-100); MAGNESIUM LEVEL 1.7 MG/DL (1.8-2.4); POTASSIUM SERUM 3.6 MEQ/L (3.5-5.1); SODIUM LEVEL 139 MEQ/L (136-145); TOTAL PROTEIN 5.3 GM/DL (6.4-8.2)
[2018-05-24 07:59] VITALS: BP 138/65
[2018-05-24] MEDS: IPRATROPIUM 0.5MG/ALBUTEROL 2.5MG INH SOL UD 3ML (DUONEB)(J7620) NEB SCH ×4 (08:12→19:29)
--- NOTE | 2018-05-24 08:28 | IPNPDOC ---
Subjective Date Seen The patient was seen on 05/24/18. Subjective Chief Complaint/HPI Patient was lying comfortable in bed as I entered the room. He reports to be feeling well. He is eating full liquids and reports to be tolerating his diet. He denies any pain. He reports continued cough. Constitutional: Denies: Chills, Fever Pulmonary: Reports: Cough; Denies: Dyspnea, Pleuritic Chest Pain Cardiovascular: Denies: Chest Pain, Palpitations, Orthopnea, Edema Gastrointestinal: Denies: Nausea, Vomiting, Abdominal Pain Psych: Reports: Mood Normal Objective Physical Examination General Exam: Positive: Alert, Cooperative, Mild Distress (Improvement noted in labored breathing from prior. ), Other (Frail elderly caucasain M lying in bed comfortably. ) Eye Exam: Positive: Conjunctiva & lids normal; Negative: Sclera icteric ENT Exam: Positive: Atraumatic Neck Exam: Positive: Supple Chest Exam: Positive: Clear to auscultation, Diminished (but clearer to auscultation today than yesterday); Negative: Rales, Rhonchi, Wheezing Heart Exam: Positive: Rate Normal, Regular Rhythm, Normal S1, Normal S2; Negative: Murmurs Telemetry: Positive: No significant arrhythmia, Sinus Abdomen Exam: Positive: Normal bowel sounds, Soft, Tenderness (some mild tenderness to palpation of mid-abdominal region but no other quadrants. Nondistended abdomen. Abdominal bandage at incisonal site clean/dry/intact.), Other (ileostomy site with good amount of dark brown output; bandage without any stains/drainage) Extremity Exam: Negative: Edema Skin Exam: Positive: Nl turgor and temperature; Negative: Rash Neuro Exam: Positive: Normal Speech Psych Exam: Positive: Mental status NL, Mood NL, Oriented x 3 Assessment /Plan Problems (1) Status post exploratory laparotomy Status: Acute Response to Treatment: Stable Problem Text: 05/24/18: Post-op day #8. Patient is tolerating full liquid diet. Good output in his ileostomy. General surgery still following. He continues to work with PT 05/23: Post-op day #7. NG tube was discontinued today. Is still having good ileostomy output and is still on TPN. Abdomen appropriately slightly tender to palpation in mid-abdominal region today at incisional site. Still with hypoactive bowel sounds. 05/22: Post-op day #6. Management as per General Surgery. Still on TPN and has NG tube that is still having output. Ileostomy output is still good. Abdomen nontender to palpation today, but still with hypoactive bowel sounds. Will reorder PT/OT today. 05/20: Is post-operative day #4. Still on TPN with K and Mg replacement as per General Surgery. Has increased output from ileostomy site now which has improved. Abdomen still distended but not as tender to palpation--improving. Still hypoactive bowel sounds on auscultation. 05/19 - per surgery On TPN 05/18: Post-operative day #2. Patient on TPN. Minimal output from ileostomy site. Will likely have prolonged course of ileus. Still diffusely tender to palpation of abdomen, but is appropriate and soft. Important to rule out postoperative fever as patient has been having fevers with Tmax of 101.2 yester day at noontime. Consider UA. CXR from today showed: There is pleuroparenchymal opacity again noted in the left base obscuring the left hemidiaphragm as before. There is slight haziness in the right base which may reflect a small amount of right pleural fluid. Will watch for signs of pneumonia. Currently on day 5 of zosyn. 05/17: Patient is status-post exploratory laparotomy, lysis of adhesions, repair of enterotomy and serosal tears, release of bowel obstruction post-op day #1. Apparently, surgery took around 7 hours and patient is in need of ventilator support at this time post-surgery. General surgery is following and managing the SBO and Pencil Inspector is consulted to help further manage respiratory support. (2) SBO (small bowel obstruction) Status: Acute Response to Treatment: Improving Problem Text: 05/24/18: Post-op day #8. Management per general surgery 05/23: Post-Op day #7. Management as per General Surgery. Have encouraged PT/OT and ordered this yesterday so that it can help with patient's post-op ileus. 05/22: Post-Op day #6. Management as per General Surgery. 05/20: Management as per General Surgery, now Dr. Lloyd Valente. Patient is post- op day #4. Spoke briefly to Dr. Valente who states that NG tube will not be removed today. Patient is still having a moderate amount of NG tube output, and it will still take some more time to decompress bowel. 05/18: Dr. Ontiveros of general surgery following and managing. Post-op day #2. 05/17: Status-post exp laparotomy, lysis of adhesions, and release of bowel obstruction post-operative day 1. Is on epidural fentanyl for post-operative pain control. TPN will be started by Dr. Ontiveros today and there is anticipated prolonged course of ileus until return of normal bowel function. This problem is being managed by Dr. Ontiveros of surgery. He seems to be making some improvement with the NG tube drainage, but is still pretty uncomfortable. Will defer to surgery for further management of this problem. (3) Aspiration pneumonitis Status: Acute Problem Text: 05/24/18: Remains on Zoysn (started on 05/14/18) and on Vancomycin (started on 05/21/19). WBC 11.2, T-max of 102.9 at 23:59 on 05/23/18. BC remain negative after 72 hours. Reports continued cough with sputum production. I will discuss with attending about repeat Chest x-ray and/or sputum culture 05/23: Day #10 of Zosyn and Day #3 of Vancomycin. WBC trending down to 10.5. Tmax was 100.7 at midnight last night. Currently, patient has been afebrile since. 05/22: Post-operative fevers likely secondary to aspiration pneumonia vs. multifocal pneumonia (HCAP). Day #9 of Zosyn and was begun on Vancomycin yesterday for more broad spectrum coverage. WBC trending down to 12.2. Tmax was 100.1 at midnight. Has been afebrile since. CT chest on 05/20 had shown bilateral lower lobe consolidation and atelectasis, persistent R middle lobe multifactorial patchy densities, new mild patchy ground glass opacities within both upper lobes, diffuse infiltrates and small pleural effusions. 05/20: Day #7 Zosyn. WBC trending down from 16.1 to 11.8. Patient has been afebrile since 2 PM yesterday and satting in the 90s on room air. CXR today shows no significant change, bibasilar opacities and cardiomegaly status-quo. Blood cx show NGTD x 24 hours. 05/19 D#6 Zosyn. WBC up slightly B/C and f/u CXR pending - ordered by pulmonary Resp status improve - extubated on NC 05/18: Day #5 of zosyn. CXR was similar to prior. Please see under assessment #1. Continue to monitor clinically. 05/17: Likely secondary from reflux of gastric contents/secretions from NG tube. Continue zosyn. Day #4. (4) Acute respiratory failure with hypoxia Status: Acute Response to Treatment: Improving Problem Text: 05/24/18: Remains on O2 vial nasal cannula to maintain saturations of >90% 05/23: Patient's O2 saturation was 93% on 2L nasal cannula. Have instructed staff to titrate patient's O2 above 90%, but not too high so as to avoid oxygen toxicity. Patient is still having net negative diuresis of 2.831 liters yesterday and -1.4 liters today. Is having good urine output: 1.99 mL/kg/hr. Weight is down from 67.9 kg to 66.4 kg today. Still on lasix 40 mg q6h IV. His lungs sound much clearer to me today. I believe his respiratory status has clinically improved from prior. Will continue santacruz for now to monitor net nega tive diuresis until this is complete. Also has epidural for pain control. 05/22: Hypoxia secondary to pulmonary edema secondary to diastolic CHF/volume overload. Patient had net negative diuresis of at least 2 liters yesterday. His O2 saturation has improved and he is requiring less oxygen than 2 days ago. He is now on 2 liters O2 via nasal cannula from 6 liters previously. 05/20: Improved. Is satting in the 90s on room air without significant work of breathing. Is in NAD. Still mildly tachypneic with RR in the low 20s. 05/19 - successfully tolerated extubation - on NC today - Per Pulmonary 05/18: Trial of weaning off ventilator was not predictive of success for extubation. Dr. Hays will be performing another trial today. 05/17: Patient went into acute hypoxic respiratory failure status-post surgery yesterday. Remained intubated and was placed on mechanical ventilation. Dr. Hays will be trying to wean patient to assess weather his SBI will go to <104 and if patient can take deep and slow breaths which would indicate success if patient were to be extubated. She will determine this today. He may be able to be extubated either today or tomorrow. (5) Low hemoglobin Status: Acute Problem Text: 05/24/18: Hgb 8.1 today. We will continue to monitor 05/23: Patient's Hgb last night was 7.9 and did not drop below 7.9 from yesterday AM. This morning, Hgb was 8.4. It is thus stable. We will continue to monitor his CBC and hold off on transfusion for now. 05/22: Patient's Hgb dropped down to 7.9. Will need to keep an eye on this and will recheck CBC in 12 hours from the one performed earlier today: at 1722. Nursing to call provider if repeat CBC shows Hgb <7.7. (6) Acute kidney injury Status: Resolved Problem Text: 05/24/18:BUN/Cre 22/1.09, GFR > 60, remains stable 05/23: Cr 1.18 and stable. Continue monitoring via BMP. On lasix for diuresis. 05/22: Creatinine stable. Monitor renal fx due to risk of kidney injury from diuresis with lasix. 05/20: Creatinine continuing to improve and is down to 1.13 from 1.25 yesterday. 05/19 - Crea continues to improve. Na+ 151, K+ low this am Surgery managing IVF and electrolyte replacement 05/18: Cr improved today to 1.52 from 1.60 yesterday. Continue to monitor BMP. I s getting IV hydration and TPN which is a concern for 3rd spacing of fluid. Does have trace edema in bilateral lower extremities. Dr. Hays was recommending to try some lasix. 05/17: Creatinine bumped up to 1.60 today with GFR lower at 44.7 from yesterday and is likely from severe dehydration from bowel obstruction. Will continue to monitor BMP and continue IV hydration as necessary. His BUN is down a little, but his creatinine is up. Overall his GFR is down a little more today. Will continue the IV hydration and monitor. I believe that he was significantly dehydrated by the time he was admitted. (7) Hypertension Status: Chronic Response to Treatment: Stable Problem Specific Plan: Monitor Clinically Problem Text: 05/24/18: Remains well controlled 05/23: Stable and controlled. 05/22: Stable and controlled. BP was 124/60 today. 05/20: Stable and controlled. BP 140/69 today. 05/18: stable and controlled. Not on any antihypertensives. 05/17: BP well controlled without any antihypertensives. At this time, will hold any antihypertensives. His BP is well controlled at this time. Continue current regimen. Plan/VTE VTE Prophylaxis Ordered?: Yes (SQ heparin. TEDs and Sequentials.) Plan/Urinary Catheter Urinary Catheter: D/C Santacruz Reason for insertion/continuin: Critical Pt monitoring Plan IVF: Decrease Family Medicine Attending Note: I saw and examined Mr. Stanley, discussed with Cristi Celaya DNP. Agree with her note as documented. He's been tolerating his diet quite well. We will need to continue to watch his white count. I do believe he is on the appropriate antibiotics, but his white count continues to climb slowly despite this. The patient reports to me is having quite a lot of abdominal pain. I explained to him this is because he is no longer receiving epidural pain management; this is the pain has been there all along, he just couldn't feel before. He expressed understanding and stated he would continue to work to heal up on a daily basis. 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, 24H, Fishbone Vital Signs/I&O Vital Signs Date Time Temp Pulse Resp B/P (MAP) Pulse Ox O2 Delivery O2 Flow Rate FiO2 05/24/18 07:59 98.6 76 18 138/65 (89) 95 Nasal Cannula 2.0 05/20/18 17:35 50 I&O- Last 24 Hours up to 6 AM 05/24/18 06:00 Intake Total 2920 ml Output Total 3750 ml Balance -830 ml Laboratory Data 24H LABS Laboratory Tests 2 05/23/18 11:45: Bedside Glucose (Misc Panel) 147H 05/23/18 17:16: Bedside Glucose (Misc Panel) 142H 05/23/18 23:26: Bedside Glucose (Misc Panel) 122H 05/24/18 06:31: Bedside Glucose (Misc Panel) 136H 05/24/18 06:34: Nucleated Red Blood Cells % (auto) 0.0, Anion Gap 6L, Glomerular Filtration Rate > 60.0, Blood Urea Nitrogen 22H, Creatinine 1.09, Sodium Level 139, Potassium Level 3.6, Chloride Level 102, Carbon Dioxide Level 31, Calcium Level 7.6L, Aspartate Amino Transf (AST/SGOT) 35, Alanine Aminotransferase (ALT/SGPT) 42, Alkaline Phosphatase 284H, Total Bilirubin 0.6, Total Protein 5.3L, Albumin 1.4L, Magnesium Level 1.7L, Albumin/Globulin Ratio 0.36L CBC/BMP Laboratory Tests 05/24/18 06:34 Red Blood Count 2.69 L, Mean Corpuscular Volume 92.2, Mean Corpuscular Hemoglobin 30.1, Mean Corpuscular Hemoglobin Concent 32.7, Red Cell Distribution Width 12.6, Calcium Level 7.6 L, Aspartate Amino Transf (AST/SGOT) 35, Alanine Aminotransferase (ALT/SGPT) 42, Alkaline Phosphatase 284 H, Total Bilirubin 0.6, Total Protein 5.3 L, Albumin 1.4 L Microbiology Microbiology 05/20/18 Blood Culture - Preliminary, Resulted No Growth after 72 hours. All specime... 05/20/18 Blood Culture - Preliminary, Resulted No Growth after 72 hours. All specime... 05/19/18 Blood Culture - Preliminary, Resulted No Growth after 72 hours. All specime... 05/19/18 Blood Culture - Preliminary, Resulted No Growth after 72 hours. All specime... CRISTI CELAYA May 24, 2018 8:28 am Andriy Leslie MD May 24, 2018 10:46 pm
[2018-05-24] MEDS: PANTOPRAZOLE 40MG INJ (PROTONIX) (C9113) IV SCH (08:30)
[2018-05-24] MEDS: NYSTATIN 500,000 U/5 ML SUSP UDC SS SCH ×4 (08:30→21:24)
[2018-05-24] MEDS: ALVIMOPAN 12 MG CAPSULE (ENTEREG) PO SCH (08:30)
[2018-05-24] MEDS: VANCOMYCIN HCL 1,000 MG, VIAL MATE ADAPTER 1 EACH in D5W 250 ML IV SCH ×2 (08:31→21:25)
[2018-05-24 12:00] VITALS: BP 141/61
--- NOTE | 2018-05-24 12:42 | IPNPDOC ---
Subjective General Date/Time Seen The patient was seen on 05/24/18 at 12:34. Subject Chief Complaint/History Patient's postop day 8 after expiratory laparotomy, release of bowel obstruction. He had a febrile spike of 102.9 at midnight otherwise afebrile rest of the time. He seems to be tolerating clear liquids. He denies any nausea, abdominal discomfort or vomiting. His ileostomy continues to function. He has been working with physical therapy with his markedly weak and decompensated. Current Medications Current Medications Current Medications Acetaminophen (Tylenol Suspension) 650 mg Q4HP PRN GT PAIN OR FEVER Last administered on 05/24/18at 00:33; Start 05/17/18 at 09:15 Albuterol Sulfate (Proventil Neb) 2.5 mg Q4HP PRN NEB SHORTNESS OF BREATH Last administered on 05/18/18at 14:57; Start 05/14/18 at 16:00 Albuterol Sulfate (Proventil Neb) 2.5 mg RQ4H NEB Last administered on 05/14/18at 15:51; Start 05/14/18 at 16:00; Stop 05/14/18 at 16:00; Status DC Albuterol/ Ipratropium (Duoneb (Ipr 0.5mg/Alb 2.5mg)) 3 ml RQ4H NEB Last administered on 05/18/18at 11:08; Start 05/17/18 at 00:00; Stop 05/18/18 at 12:38; Status DC Albuterol/ Ipratropium (Duoneb (Ipr 0.5mg/Alb 2.5mg)) 3 ml RQID NEB Last administered on 05/24/18at 11:52; Start 05/20/18 at 20:00 Alvimopan (Entereg) 12 mg BID PO Last administered on 05/24/18at 08:30; Start 05/19/18 at 09:00; Stop 05/24/18 at 12:05; Status DC Amino Ac/Electrol/ Dextrose/Calcium 2,000 ml @ 50 mls/hr ONCE@1800 IV Last administered on 05/21/18at 12:39; Start 05/20/18 at 18:00; Stop 05/21/18 at 17:59; Status DC Amlodipine Besylate (Norvasc) 5 mg DAILY PO Last administered on 05/16/18at 08:30; Start 05/13/18 at 09:00; Stop 05/16/18 at 23:33; Status DC Celecoxib (CeleBREX) 200 mg BID PO ; Start 05/24/18 at 09:00 Chlorhexidine Gluconate (Peridex Oral Rinse) SWAB/BRUSH ORAL CAVITY BID MT Last administered on 05/18/18at 08:42; Start 05/17/18 at 09:00; Stop 05/18/18 at 12:37; Status DC Dextrose/Water 1,000 ml @ 100 mls/hr Q10H IV Last administered on 05/20/18at 00:00; Start 05/19/18 at 09:00; Stop 05/20/18 at 15:19; Status DC Diphenhydramine HCl (Benadryl) 12.5 mg Q4HP PRN IV ITCHING; Start 05/16/18 at 15:00 Fat Emulsion Intravenous 500 ml @ 20 mls/hr ONCE@1800 IV Last administered on 05/17/18at 17:38; Start 05/17/18 at 18:00; Stop 05/18/18 at 17:59; Status DC Fat Emulsion Intravenous 500 ml @ 20 mls/hr ONCE@1800 IV Last administered on 05/18/18at 18:20; Start 05/18/18 at 18:00; Stop 05/19/18 at 17:59; Status DC Fat Emulsion Intravenous 500 ml @ 20 mls/hr ONCE@1800 IV Last administered on 05/19/18at 17:56; Start 05/19/18 at 18:00; Stop 05/20/18 at 17:59; Status DC Fat Emulsion Intravenous 500 ml @ 20 mls/hr ONCE@1800 IV Last administered on 05/21/18at 12:38; Start 05/20/18 at 18:00; Stop 05/21/18 at 17:59; Status DC Fat Emulsion Intravenous 500 ml @ 20 mls/hr ONCE@1800 IV Last administered on 05/21/18at 17:49; Start 05/21/18 at 18:00; Stop 05/22/18 at 17:59; Status DC Fat Emulsion Intravenous 500 ml @ 20 mls/hr ONCE@1800 IV Last administered on 05/22/18at 18:17; Start 05/22/18 at 18:00; Stop 05/23/18 at 17:59; Status DC Fat Emulsion Intravenous 500 ml @ 20 mls/hr ONCE@1800 IV Last administered on 05/23/18at 17:34; Start 05/23/18 at 18:00; Stop 05/24/18 at 17:59 Fentanyl Citrate (Sublimaze) 25 mcg Q5MP PRN IV MODERATE PAIN (PS 4-7); Start 05/16/18 at 21:00; Stop 05/16/18 at 22:30; Status DC Fentanyl/ Bupivacaine HCl 250 ml @ 12 mls/hr [id number] EPIDURAL Last administered on 05/23/18at 19:45; Start 05/16/18 at 15:00; Stop 05/26/18 at 14:59 Furosemide (LASIX injection) 40 mg DAILY IV ; Start 05/19/18 at 09:00; Stop 05/19/18 at 09:00; Status DC Furosemide (LASIX injection) 40 mg Q6H IV Last administered on 05/24/18at 06:35; Start 05/21/18 at 00:00 Heparin Sodium (Porcine) (Heparin) 5,000 units Q12H SQ Last administered on 05/18/18at 22:01; Start 05/13/18 at 09:00; Stop 05/19/18 at 08:52; Status DC Heparin Sodium (Porcine) (Heparin) 5,000 units Q8H SQ Last administered on 05/24/18at 06:36; Start 05/19/18 at 14:00 Home Med (Med Rec Complete!) ASDIRECTED XX ; Start 05/12/18 at 16:15; Stop 1 07/13/17 at 16:15; Status DC Insulin Human Lispro (HumaLOG INSULIN) See Protocol Table Q6H SC Last a dministered on 05/18/18at 12:33; Start 05/17/18 at 18:00; Stop 05/18/18 at 12:01; Status DC Insulin Human Lispro (HumaLOG INSULIN) See Protocol Table Q6H SC Last administered on 05/19/18at 11:27; Start 05/18/18 at 18:00; Stop 05/19/18 at 12:01; Status DC Insulin Human Lispro (HumaLOG INSULIN) See Protocol Table Q6H SC Last administered on 05/20/18at 12:04; Start 05/19/18 at 18:00; Stop 05/20/18 at 12:01; Status DC Insulin Human Lispro (HumaLOG INSULIN) See Protocol Table Q6H SC ; Start 05/20/18 at 18:00; Stop 05/21/18 at 12:01; Status DC Insulin Human Lispro (HumaLOG INSULIN) See Protocol Table Q6H SC Last administered on 05/22/18at 05:41; Start 05/21/18 at 18:00; Stop 05/22/18 at 12:01; Status DC Insulin Human Lispro (HumaLOG INSULIN) See Protocol Table Q6H SC Last admi nistered on 05/23/18at 12:18; Start 05/22/18 at 18:00; Stop 05/23/18 at 12:01; Status DC Insulin Human Lispro (HumaLOG INSULIN) See Protocol Table Q6H SC Last administered on 05/24/18at 06:45; Start 05/23/18 at 18:00; Stop 05/24/18 at 12:01; Status DC Insulin Human Regular 20 units/ Potassium Chloride 40 meq/ Amino Ac/Electrol/ Dextrose/Calcium 2,020.2 ml @ 65 mls/hr ONCE@1800 IV Last administered on 05/23/18at 17:35; Start 05/23/18 at 18:00; Stop 05/24/18 at 17:59 Insulin Human Regular 33 units/ Potassium Chloride 67 meq/ Magnesium Sulfate 13 meq/Amino Ac/ Electrol/Dextrose/ Calcium 2,037.08 ml @ 50 mls/hr ONCE@1800 IV Last administered on 05/21/18at 17:49; Start 05/21/18 at 18:00; Stop 05/22/18 at 17:59; Status DC Ketorolac Tromethamine (ToRADol) 15 mg Q8H IV Last administered on 05/24/18at 02:03; Start 05/19/18 at 10:00; Stop 05/24/18 at 09:59; Status DC Lactated Ringer's 1,000 ml @ 150 mls/hr Q6H40M IV Last administered on 05/17/18at 12:16; Start 05/16/18 at 21:45; Stop 05/17/18 at 17:56; Status DC Lactated Ringer's 1,000 ml @ 150 mls/hr Q6H40M IV Last administered on 05/14/18at 05:03; Start 05/12/18 at 17:00; Stop 05/14/18 at 09:41; Status DC Magnesium Sulfate/ Dextrose 1 gm/IV Miscellaneous Supplies 100 ml @ 100 mls/hr Q1H IV Last administered on 05/20/18at 12:04; Start 05/20/18 at 10:00; Stop 05/20/18 at 11:59; Status DC Metoclopramide HCl (REGLAN INJection) 10 mg Q6HP PRN IV NAUSEA; Start 05/16/18 at 15:00 Midazolam HCl (Versed) 2 mg Q15MP PRN IV AGITATION Last administered on 05/18/18at 04:02; Start 05/16/18 at 21:30; Stop 05/18/18 at 12:37; Status DC Miscellaneous (Unresolved Clarification Entry) SEE LABEL COMMENTS DAILY XX ; Start 05/18/18 at 09:00; Stop 05/18/18 at 09:10; Status DC Miscellaneous (Unresolved Clarification Entry) SEE LABEL COMMENTS DAILY XX ; Start 05/19/18 at 09:00; Stop 05/19/18 at 16:27; Status DC Miscellaneous (Unresolved Clarification Entry) SEE LABEL COMMENTS DAILY XX ; Start 05/22/18 at 09:00; Stop 05/23/18 at 15:19; Status DC Morphine Sulfate (Morphine Sulfate Inj) 2 mg Q15M PRN IV MODERATE/SEVERE PAIN (PS 5-10) Last administered on 05/12/18at 16:01; Start 05/12/18 at 13:30; Stop 05/12/18 at 16:01; Status DC Morphine Sulfate (Morphine Sulfate Inj) 2 mg Q2HP PRN IV BREAKTHROUGH PAIN; Start 05/16/18 at 21:30; Stop 05/17/18 at 09:11; Status DC Morphine Sulfate (Morphine Sulfate Inj) 4 mg Q2HP PRN IV SEVERE PAIN (PS 8-10) Last administered on 05/14/18at 02:02; Start 05/12/18 at 16:15; Stop 05/16/18 at 21:33; Status DC Morphine Sulfate (Morphine Sulfate Inj) 5 mg Q4HP PRN IV SEVERE PAIN (PS 8-10); Start 05/24/18 at 12:15 Multivitamins 10 ml/Chromium/ Copper/Manganese/ Seleni/Zn 1 ml/ Amino Ac/Electrol/ Dextrose/Calcium 2,011 ml @ 80 mls/hr ONCE@1800 IV Last admini stered on 05/17/18at 17:38; Start 05/17/18 at 18:00; Stop 05/18/18 at 17:59; Status DC Multivitamins 10 ml/Chromium/ Copper/Manganese/ Seleni/Zn 1 ml/ Insulin Human Regular 20 units/ Potassium Chloride 40 meq/ Magnesium Sulfate 8 meq/Amino Ac/ Electrol/Dextrose/ Calcium 2,033.2 ml @ 80 mls/hr ONCE@1800 IV Last administered on 05/19/18at 17:57; Start 05/19/18 at 18:00; Stop 05/20/18 at 17:59; Status DC Multivitamins 10 ml/Chromium/ Copper/Manganese/ Seleni/Zn 1 ml/ Potassium Chloride 40 meq/ Insulin Human Regular 20 units/ Amino Ac/Electrol/ Dextrose/Calcium 2,031.2 ml @ 70 mls/hr ONCE@1800 IV Last administered on 05/22/18at 18:16; Start 05/22/18 at 18:00; Stop 05/23/18 at 17:59; Status DC Naloxone HCl (Narcan) 0.1 mg Q5MP PRN IV SEE LABEL COMMENTS; Start 05/16/18 at 15:00 Non-Formulary Medication (Epidural/[employer] [place]) 1 each ASDIRECTED PRN XX SEE LABEL COMMENTS; Start 05/16/18 at 15:00 Non-Formulary Medication ([place]) ASDIRECTED PRN XX SEE LABEL COMMENTS; Start 05/16/18 at 15:00 Nystatin (Mycostatin) 5 ml QID SS Last administered on 05/24/18at 08:30; Start 05/18/18 at 13:00 Ondansetron HCl (ZOFRAN INJection) 4 mg Q6HP PRN IV REFRACTORY NAUSEA; Start 05/16/18 at 15:00 Ondansetron HCl (ZOFRAN INJection) 4 mg Q6HP PRN IV NAUSEA OR VOMITING; Start 05/12/18 at 16:15; Status Future Hold Oxycodone/ Acetaminophen (Percocet 5mg/ 325mg Tablet) 1 tab Q4HP PRN PO RI LD/MODERATE PAIN (PS 1-7); Start 05/24/18 at 12:15 Oxycodone/ Acetaminophen (Percocet 5mg/ 325mg Tablet) 2 tab Q4HP PRN PO SEVERE PAIN (PS 8-10); Start 05/24/18 at 12:15 Pantoprazole Sodium (Protonix) 40 mg DAILY IV Last administered on 05/24/18at 08:30; Start 05/12/18 at 09:00 Piperacillin Sod/ Tazobactam Sod 3.375 gm/Dextrose 50 ml @ 50 mls/hr Q6H IV Last administered on 05/24/18at 06:36; Start 05/14/18 at 12:00 Potassium Chloride 10 meq/ IV Miscellaneous Supplies 100 ml @ 100 mls/hr 063 0,0730,0830 IV Last administered on 05/14/18at 10:10; Start 05/14/18 at 06:30; Stop 05/14/18 at 12:00; Status DC Potassium Chloride 10 meq/ IV Miscellaneous Supplies 100 ml @ 100 mls/hr 0700,0800,0900 IV Last administered on 05/22/18at 13:02; Start 05/22/18 at 07:00; Stop 05/22/18 at 12:00; Status DC Potassium Chloride 10 meq/ IV Miscellaneous Supplies 100 ml @ 100 mls/hr 1000,1100,1200 IV Last administered on 05/22/18at 17:30; Start 05/22/18 at 10:00; Stop 05/22/18 at 14:00; Status DC Potassium Chloride 10 meq/ IV Miscellaneous Supplies 100 ml @ 100 mls/hr Q1H IV Last administered on 05/15/18at 16:38; Start 05/15/18 at 09:30; Stop 05/15/18 at 15:29; Status DC Potassium Chloride 10 meq/ IV Miscellaneous Supplies 100 ml @ 100 mls/hr Q1H IV Last administered on 05/16/18at 13:16; Start 05/16/18 at 12:00; Stop 05/16/18 at 13:59; Status DC Potassium Chloride 10 meq/ IV Miscellaneous Supplies 100 ml @ 100 mls/hr Q1H IV Last administered on 05/18/18at 11:36; Start 05/18/18 at 08:00; Stop 05/18/18 at 11:59; Status DC Potassium Chloride 10 meq/ IV Miscellaneous Supplies 100 ml @ 100 mls/hr Q1H IV ; Start 05/20/18 at 10:00; Stop 05/20/18 at 13:59; Status Cancel Potassium Chloride 10 meq/ IV Miscellaneous Supplies 100 ml @ 100 mls/hr Q1H IV Last administered on 05/21/18at 15:54; Start 05/21/18 at 09:00; Stop 05/21/18 at 18:59; Status DC Potassium Chloride 10 meq/ IV Miscellaneous Supplies 100 ml @ 100 mls/hr Q1H IV Last administered on 05/14/18at 21:01; Start 05/14/18 at 17:00; Stop 05/14/18 at 19:59; Status DC Potassium Chloride 20 meq/ IV Miscellaneous Supplies 100 ml @ 100 mls/hr ASDIRECTED IV ; Start 05/22/18 at 06:45; Status UNV Potassium Chloride 20 meq/ IV Miscellaneous Supplies 100 ml @ 100 mls/hr Q1H IV Last administered on 05/20/18at 11:54; Start 05/20/18 at 11:00; Stop 05/20/18 at 12:59; Status DC Potassium Chloride 20 meq/ Insulin Human Regular 10 units/ Amino Ac/Electrol/ Dextrose/Calcium 2,010.1 ml @ 80 mls/hr ONCE@1800 IV Last administered on 05/18/18at 18:19; Start 05/18/18 at 18:00; Stop 05/19/18 at 17:59; Status DC Potassium Chloride/Dextrose/ Sod Cl 1,000 ml @ 75 mls/hr [id number] IV Last administered on 05/16/18at 07:36; Start 05/14/18 at 06:15; Stop 05/16/18 at 21:33; Status DC Propofol (Diprivan) TITRATE TO MARJORIE 2-3 ASDIRECTED IV ; Start 05/16/18 at 21:00; Stop 05/16/18 at 22:30; Status DC Propofol 1000 mg/ IV Miscellaneous Supplies 100 ml @ 3.85 mls/hr Q24H IV ; Start 05/16/18 at 21:20; Stop 05/18/18 at 12:37; Status DC Sodium Chloride 1,000 ml @ 100 mls/hr Q10H IV ; Start 05/12/18 at 13:18; Stop 05/12/18 at 16:11; Status DC Vancomycin HCl 1000 mg/IV Miscellaneous Supplies 1 each/ Dextrose 270 ml @ 270 mls/hr Q12H IV Last administered on 05/24/18at 08:31; Start 05/21/18 at 08:00 Allergies Coded Allergies: No Known Allergies (Unverified , 02/27/18) Objective Physical Examination Examination GENERAL APPEARANCE: Patient sitting up on a recliner, slight short of breath but otherwise looks comfortable. SKIN: Warm and dry. HEENT: Mild pale palpebral conjunctiva, lips are moist.. NECK: [Supple, no thyromegaly. No obvious jugular venous distention]. LUNGS: Breath sounds clear to auscultation anteriorly specially in the upper lobes but diminished on both basal areas. No rales.. HEART: [No chest wall abnormalities. Regular rate and rhythm with no murmurs appreciated]. ABDOMEN: Abdomen is minimally distended, soft, slightly tympanitic to percussion. Midline incision is intact, no erythema small amount of serous drainage between the abdias. Active bowel sounds. Right lower quadrant ostomy with loose stools Improving lower extremity edema Vital Signs Vital Signs Date Time Temp Pulse Resp B/P (MAP) Pulse Ox O2 Delivery O2 Flow Rate FiO2 05/24/18 12:00 97.5 77 18 141/61 (87) 96 Nasal Cannula 2.0 05/20/18 17:35 50 I&Os I&O- Last 24 Hours up to 6 AM 05/24/18 06:00 Intake Total 2920 ml Output Total 3750 ml Balance -830 ml Laboratory Data Labs 24H Laboratory Tests 2 05/23/18 17:16: Bedside Glucose (Misc Panel) 142H 05/23/18 23:26: Bedside Glucose (Misc Panel) 122H 05/24/18 06:31: Bedside Glucose (Misc Panel) 136H 05/24/18 06:34: Nucleated Red Blood Cells % (auto) 0.0, Anion Gap 6L, Glomerular Filtration Rate > 60.0, Blood Urea Nitrogen 22H, Creatinine 1.09, Sodium Level 139, Potassium Level 3.6, Chloride Level 102, Carbon Dioxide Level 31, Calcium Level 7.6L, Aspartate Amino Transf (AST/SGOT) 35, Alanine Aminotransferase (ALT/SGPT) 42, Alkaline Phosphatase 284H, Total Bilirubin 0.6, Total Protein 5.3L, Albumin 1.4L, Magnesium Level 1.7L, Albumin/Globulin Ratio 0.36L 05/24/18 12:01: Bedside Glucose (Misc Panel) 132H CBC/BMP Laboratory Tests 05/24/18 06:34 Red Blood Count 2.69 L, Mean Corpuscular Volume 92.2, Mean Corpuscular Hemoglobin 30.1, Mean Corpuscular Hemoglobin Concent 32.7, Red Cell Distribution Width 12.6, Calcium Level 7.6 L, Aspartate Amino Transf (AST/SGOT) 35, Alanine Aminotransferase (ALT/SGPT) 42, Alkaline Phosphatase 284 H, Total Bilirubin 0.6, Total Protein 5.3 L, Albumin 1.4 L Microbiology Microbiology 05/20/18 Blood Culture - Preliminary, Resulted No Growth after 72 hours. All specime... 05/20/18 Blood Culture - Preliminary, Resulted No Growth after 72 hours. All specime... 05/19/18 Blood Culture - Final, Complete NO GROWTH AFTER 5 DAYS 05/19/18 Blood Culture - Final, Complete NO GROWTH AFTER 5 DAYS Impression Postop day 8 after exploratory laparotomy, extensive lysis of adhesions, repair of enterotomy and serosal tears, release of bowel obstruction Acute hypoxemic respiratory failure secondary to above as well as to possible aspiration pneumonitis, pneumonia improving Acute renal failure from severe dehydration from the bowel obstruction improving Electrolyte derangements, hypokalemia from the NG tube losse, hypernatremia, alkalosis -- improved physical decompensation/weakness - PT Overall continues to show improvement though he is noticeably weak and couldn't tolerate only limited activity at this time. May take time for him to recover. A feeler has been sent for possible acute rehabilitation set up for him and not sure if he'll be able to tolerate much activity yet but I'm hoping he would continue to improve. He still has some mild leukocytosis. He remains on vancomycin and Zosyn IV for pneumonitis/pneumonia. He has occasional febrile spikes.his abdomen overall is benign on examination and he is continuing to have ileostomy function. I will advance him on soft foods and allow the TPN to finish and discontinue the TPN. We will supplement him with oral ensure Epidural has been discontinued. We'll provide him with Percocets and Celebrex for pain control. Heparin subcutaneous for DVT prophylaxis. Plan / VTE VTE Prophylaxis Ordered?: Yes (SQ heparin. TEDs and Sequentials.) Plan / Urinary Catheter Urinary Catheter: D/C Little Reason for insertion/continuin: Critical Pt monitoring SUNNY AVALOS MD May 24, 2018 12:42
[2018-05-24] MEDS: PERCOCET 5MG/325MG TAB PO PRN ×2 (12:57→21:25)
[2018-05-24] MEDS: CelecoXIB (CeleBREX) 100 MG CAP PO SCH ×2 (12:57→21:24)
[2018-05-24] MEDS: MORPHINE 10 MG/ML 1ML VIAL (J2270) IV PRN ×2 (15:04→18:50)
[2018-05-24 16:01] VITALS: BP 131/76
[2018-05-24] MEDS ORDERED: MAG SULF 1GM/100ML (MAG RUN) 1 GM in APPROPRIATE DILUENT 1 EA IV ONE (18:00)
[2018-05-24 19:50] VITALS: BP 159/77
[2018-05-25] VITALS (10 sets, daily range): BP systolic 76–178; BP diastolic 40–84
[2018-05-25] MEDS: FUROSEMIDE 40 MG/4 ML VIAL (J1940) IV SCH ×3 (00:02→11:14)
[2018-05-25] MEDS: PIPERACILLIN/TAZOBACTAM SOD 3.375 GM in D5W MINI-BAG PLUS 50 ML IV SCH ×5 (00:02→23:58)
[2018-05-25] MEDS: MORPHINE 10 MG/ML 1ML VIAL (J2270) IV PRN ×4 (00:03→11:21)
[2018-05-25] MEDS: PERCOCET 5MG/325MG TAB PO PRN (03:34)
[2018-05-25] MEDS: HEPARIN SOD (PORCINE) 5000 UNITS/ML VIAL SQ SCH ×3 (05:29→21:52)
[2018-05-25 05:57] LABS: HEMOGLOBIN 9.2 g/dl (13.5-17.5); MEAN CORPUSCULAR HGB CONC 32.9 g/dl (32.0-36.5); MEAN CORPUSCULAR VOLUME 91.2 fl (80.0-96.0); PLATELET COUNT, AUTOMATED 467 10^3/uL (150-450); RED BLOOD COUNT 3.07 10^6/uL (4.30-6.10); WHITE BLOOD COUNT 17.6 10^3/uL (4.0-10.0)
[2018-05-25] MEDS ORDERED: MORPHINE 10 MG/ML 1ML VIAL (J2270) IV ONE (06:00)
[2018-05-25 06:52] LABS: ALBUMIN 1.5 GM/DL (3.2-5.2); ALT/SGPT 62 U/L (12-78); BILIRUBIN,TOTAL 0.7 MG/DL (0.2-1.0); BLOOD UREA NITROGEN 23 MG/DL (7-18); CALCIUM LEVEL 7.8 MG/DL (8.8-10.2); CARBON DIOXIDE LEVEL 31 MEQ/L (21-32); CHLORIDE LEVEL 97 MEQ/L (98-107); CREATININE FOR GFR 1.06 MG/DL (0.70-1.30); GLOMERULAR FILTRATION RATE > 60.0 (>42); GLUCOSE, FASTING 142 MG/DL (70-100); SODIUM LEVEL 138 MEQ/L (136-145); TOTAL PROTEIN 5.8 GM/DL (6.4-8.2)
[2018-05-25] MEDS: IPRATROPIUM 0.5MG/ALBUTEROL 2.5MG INH SOL UD 3ML (DUONEB)(J7620) NEB SCH ×4 (07:23→20:01)
[2018-05-25] MEDS: VANCOMYCIN HCL 1,000 MG, VIAL MATE ADAPTER 1 EACH in D5W 250 ML IV SCH (07:41)
[2018-05-25] MEDS: GASTROGRAFIN SOLUTION 30ML PO SCH ×2 (08:42→09:21)
[2018-05-25] MEDS: CelecoXIB (CeleBREX) 100 MG CAP PO SCH (08:42)
[2018-05-25] MEDS: NYSTATIN 500,000 U/5 ML SUSP UDC SS SCH ×4 (08:42→21:52)
[2018-05-25] MEDS: PANTOPRAZOLE 40MG INJ (PROTONIX) (C9113) IV SCH (08:42)
--- NOTE | 2018-05-25 08:42 | IPNPDOC ---
Subjective General Date/Time Seen The patient was seen on 05/25/18 at 08:38. Subject Chief Complaint/History Patient's postop day 11 after exploratory laparotomy for bowel obstruction Patient reports he is not doing well today. He has been having upper abdominal pain and discomfort since last night and he tells me the morphine is not touching it. He denies any nausea. He continues to have liquid stool and air, from his ileostomy. He appears moderately distended today. Current Medications Current Medications Current Medications Acetaminophen (Tylenol Suspension) 650 mg Q4HP PRN GT PAIN OR FEVER Last administered on 05/24/18at 00:33; Start 05/17/18 at 09:15 Albuterol Sulfate (Proventil Neb) 2.5 mg Q4HP PRN NEB SHORTNESS OF BREATH Last administered on 05/18/18at 14:57; Start 05/14/18 at 16:00 Albuterol Sulfate (Proventil Neb) 2.5 mg RQ4H NEB Last administered on 05/14/18at 15:51; Start 05/14/18 at 16:00; Stop 05/14/18 at 16:00; Status DC Albuterol/ Ipratropium (Duoneb (Ipr 0.5mg/Alb 2.5mg)) 3 ml RQ4H NEB Last administered on 05/18/18at 11:08; Start 05/17/18 at 00:00; Stop 05/18/18 at 12:38; Status DC Albuterol/ Ipratropium (Duoneb (Ipr 0.5mg/Alb 2.5mg)) 3 ml RQID NEB Last administered on 05/25/18at 07:23; Start 05/20/18 at 20:00 Alvimopan (Entereg) 12 mg BID PO Last administered on 05/24/18at 08:30; Start 05/19/18 at 09:00; Stop 05/24/18 at 12:05; Status DC Amino Ac/Electrol/ Dextrose/Calcium 2,000 ml @ 50 mls/hr ONCE@1800 IV Last administered on 05/21/18at 12:39; Start 05/20/18 at 18:00; Stop 05/21/18 at 17:59; Status DC Amlodipine Besylate (Norvasc) 5 mg DAILY PO Last administered on 05/16/18at 08:30; Start 05/13/18 at 09:00; Stop 05/16/18 at 23:33; Status DC Celecoxib (CeleBREX) 200 mg BID PO Last administered on 05/24/18at 21:24; Start 05/24/18 at 09:00 Chlorhexidine Gluconate (Peridex Oral Rinse) SWAB/BRUSH ORAL CAVITY BID MT Last administered on 05/18/18at 08:42; Start 05/17/18 at 09:00; Stop 05/18/18 at 12:37; Status DC Dextrose/Water 1,000 ml @ 100 mls/hr Q10H IV Last administered on 05/20/18at 00:00; Start 05/19/18 at 09:00; Stop 05/20/18 at 15:19; Status DC Diatrizoate Meglum/ Diatrizoate Sod (Gastrografin) 10 ml Q30M PO ; Start 05/25/18 at 08:50; Stop 05/25/18 at 09:21 Diphenhydramine HCl (Benadryl) 12.5 mg Q4HP PRN IV ITCHING; Start 05/16/18 at 15:00; Status Cancel Fat Emulsion Intravenous 500 ml @ 20 mls/hr ONCE@1800 IV Last administered on 05/17/18at 17:38; Start 05/17/18 at 18:00; Stop 05/18/18 at 17:59; Status DC Fat Emulsion Intravenous 500 ml @ 20 mls/hr ONCE@1800 IV Last administered on 05/18/18at 18:20; Start 05/18/18 at 18:00; Stop 05/19/18 at 17:59; Status DC Fat Emulsion Intravenous 500 ml @ 20 mls/hr ONCE@1800 IV Last administered on 05/19/18at 17:56; Start 05/19/18 at 18:00; Stop 05/20/18 at 17:59; Status DC Fat Emulsion Intravenous 500 ml @ 20 mls/hr ONCE@1800 IV Last administered on 05/21/18at 12:38; Start 05/20/18 at 18:00; Stop 05/21/18 at 17:59; Status DC Fat Emulsion Intravenous 500 ml @ 20 mls/hr ONCE@1800 IV Last administered on 05/21/18at 17:49; Start 05/21/18 at 18:00; Stop 05/22/18 at 17:59; Status DC Fat Emulsion Intravenous 500 ml @ 20 mls/hr ONCE@1800 IV Last administered on 05/22/18at 18:17; Start 05/22/18 at 18:00; Stop 05/23/18 at 17:59; Status DC Fat Emulsion Intravenous 500 ml @ 20 mls/hr ONCE@1800 IV Last administered on 05/23/18at 17:34; Start 05/23/18 at 18:00; Stop 05/24/18 at 17:10; Status DC Fentanyl Citrate (Sublimaze) 25 mcg Q5MP PRN IV MODERATE PAIN (PS 4-7); Start 05/16/18 at 21:00; Stop 05/16/18 at 22:30; Status DC Fentanyl/ Bupivacaine HCl 250 ml @ 12 mls/hr [id number] EPIDURAL Last administered on 05/23/18at 19:45; Start 05/16/18 at 15:00; Stop 05/24/18 at 12:36; Status DC Furosemide (LASIX injection) 40 mg DAILY IV ; Start 05/19/18 at 09:00; Stop 05/19/18 at 09:00; Status DC Furosemide (LASIX injection) 40 mg Q6H IV Last administered on 05/25/18at 05:29; Start 05/21/18 at 00:00 Heparin Sodium (Porcine) (Heparin) 5,000 units Q12H SQ Last administered on 05/18/18at 22:01; Start 05/13/18 at 09:00; Stop 05/19/18 at 08:52; Status DC Heparin Sodium (Porcine) (Heparin) 5,000 units Q8H SQ Last administered on 05/25/18at 05:29; Start 05/19/18 at 14:00 Home Med (Med Rec Complete!) ASDIRECTED XX ; Start 05/12/18 at 16:15; Stop 05/12/18 at 16:15; Status DC Insulin Human Lispro (HumaLOG INSULIN) See Protocol Table Q6H SC Last administered on 05/18/18at 12:33; Start 05/17/18 at 18:00; Stop 05/18/18 at 12:01; Status DC Insulin Human Lispro (HumaLOG INSULIN) See Protocol Table Q6H SC Last administered on 05/19/18at 11:27; Start 05/18/18 at 18:00; Stop 05/19/18 at 12:01; Status DC Insulin Human Lispro (HumaLOG INSULIN) See Protocol Table Q6H SC Last administered on 05/20/18at 12:04; Start 05/19/18 at 18:00; Stop 05/20/18 at 12:01; Status DC Insulin Human Lispro (HumaLOG INSULIN) See Protocol Table Q6H SC ; Start 05/20/18 at 18:00; Stop 05/21/18 at 12:01; Status DC Insulin Human Lispro (HumaLOG INSULIN) See Protocol Table Q6H SC Last administered on 05/22/18at 05:41; Start 05/21/18 at 18:00; Stop 05/22/18 at 12:01; Status DC Insulin Human Lispro (HumaLOG INSULIN) See Protocol Table Q6H SC Last administered on 05/23/18at 12:18; Start 05/22/18 at 18:00; Stop 05/23/18 at 12:01; Status DC Insulin Human Lispro (HumaLOG INSULIN) See Protocol Table Q6H SC Last administered on 05/24/18at 12:59; Start 05/23/18 at 18:00; Stop 05/24/18 at 12:01; Status DC Insulin Human Regular 20 units/ Potassium Chloride 40 meq/ Amino Ac/Electrol/ Dextrose/Calcium 2,020.2 ml @ 65 mls/hr ONCE@1800 IV Last administered on 05/23/18at 17:35; Start 05/23/18 at 18:00; Stop 05/24/18 at 17:10; Status DC Insulin Human Regular 33 units/ Potassium Chloride 67 meq/ Magnesium Sulfate 13 meq/Amino Ac/ Electrol/Dextrose/ Calcium 2,037.08 ml @ 50 mls/hr ONCE@1800 IV Last administered on 05/21/18at 17:49; Start 05/21/18 at 18:00; Stop 05/22/18 at 17:59; Status DC Ketorolac Tromethamine (ToRADol) 15 mg Q8H IV Last administered on 05/24/18at 02:03; Start 05/19/18 at 10:00; Stop 05/24/18 at 09:59; Status DC Lactated Ringer's 1,000 ml @ 150 mls/hr Q6H40M IV Last administered on 05/17/18at 12:16; Start 05/16/18 at 21:45; Stop 05/17/18 at 17:56; Status DC Lactated Ringer's 1,000 ml @ 150 mls/hr Q6H40M IV Last administered on 05/14/18at 05:03; Start 05/12/18 at 17:00; Stop 05/14/18 at 09:41; Status DC Magnesium Sulfate/ Dextrose 1 gm/IV Miscellaneous Supplies 100 ml @ 100 mls/hr Q1H IV Last administered on 05/20/18at 12:04; Start 05/20/18 at 10:00; Stop 05/20/18 at 11:59; Status DC Metoclopramide HCl (REGLAN INJection) 10 mg Q6HP PRN IV NAUSEA; Start 05/16/18 at 15:00; Status Cancel Midazolam HCl (Versed) 2 mg Q15MP PRN IV AGITATION Last administered on 05/18/18at 04:02; Start 05/16/18 at 21:30; Stop 05/18/18 at 12:37; Status DC Miscellaneous (Unresolved Clarification Entry) SEE LABEL COMMENTS DAILY XX ; Start 05/18/18 at 09:00; Stop 05/18/18 at 09:10; Status DC Miscellaneous (Unresolved Clarification Entry) SEE LABEL COMMENTS DAILY XX ; Start 05/19/18 at 09:00; Stop 05/19/18 at 16:27; Status DC Miscellaneous (Unresolved Clarification Entry) SEE LABEL COMMENTS DAILY XX ; Start 05/22/18 at 09:00; Stop 05/23/18 at 15:19; Status DC Morphine Sulfate (Morphine Sulfate Inj) 2 mg Q15M PRN IV MODERATE/SEVERE PAIN (PS 5-10) Last administered on 05/12/18at 16:01; Start 05/12/18 at 13:30; Stop 05/12/18 at 16:01; Status DC Morphine Sulfate (Morphine Sulfate Inj) 2 mg Q2HP PRN IV BREAKTHROUGH PAIN; Start 05/16/18 at 21:30; Stop 05/17/18 at 09:11; Status DC Morphine Sulfate (Morphine Sulfate Inj) 4 mg Q2HP PRN IV SEVERE PAIN (PS 8-10) Last administered on 05/14/18at 02:02; Start 05/12/18 at 16:15; Stop 05/16/18 at 21:33; Status DC Morphine Sulfate (Morphine Sulfate Inj) 5 mg Q4HP PRN IV SEVERE PAIN (PS 8-10) Last administered on 05/25/18at 04:20; Start 05/24/18 at 12:15 Multivitamins 10 ml/Chromium/ Copper/Manganese/ Seleni/Zn 1 ml/ Amino Ac/Electrol/ Dextrose/Calcium 2,011 ml @ 80 mls/hr ONCE@1800 IV Last administered on 05/17/18at 17:38; Start 05/17/18 at 18:00; Stop 05/18/18 at 17:59; Status DC Multivitamins 10 ml/Chromium/ Copper/Manganese/ Seleni/Zn 1 ml/ Insulin Human Regular 20 units/ Potassium Chloride 40 meq/ Magnesium Sulfate 8 meq/Amino Ac/ Electrol/Dextrose/ Calcium 2,033.2 ml @ 80 mls/hr ONCE@1800 IV Last administered on 05/19/18at 17:57; Start 05/19/18 at 18:00; Stop 05/20/18 at 17:59; Status DC Multivitamins 10 ml/Chromium/ Copper/Manganese/ Seleni/Zn 1 ml/ Potassium Chloride 40 meq/ Insulin Human Regular 20 units/ Amino Ac/Electrol/ D extrose/Calcium 2,031.2 ml @ 70 mls/hr ONCE@1800 IV Last administered on 05/22/18at 18:16; Start 05/22/18 at 18:00; Stop 05/23/18 at 17:59; Status DC Naloxone HCl (Narcan) 0.1 mg Q5MP PRN IV SEE LABEL COMMENTS; Start 05/16/18 at 15:00; Status Cancel Non-Formulary Medication (Epidural/REGIONAL AIRLINE PILOT [place]) 1 each ASDIRECTED PRN XX SEE LABEL COMMENTS; Start 05/16/18 at 15:00; Status Cancel Non-Formulary Medication ([place]) ASDIRECTED PRN XX SEE LABEL COMMENTS; Start 05/16/18 at 15:00; Status Cancel Nystatin (Mycostatin) 5 ml QID SS Last administered on 05/24/18at 21:24; Start 05/18/18 at 13:00 Ondansetron HCl (ZOFRAN INJection) 4 mg Q6HP PRN IV REFRACTORY NAUSEA; Start 05/16/18 at 15:00; Status Cancel Ondansetron HCl (ZOFRAN INJection) 4 mg Q6HP PRN IV NAUSEA OR VOMITING; Start 05/12/18 at 16:15; Status Future Hold Oxycodone/ Acetaminophen (Percocet 5mg/ 325mg Tablet) 1 tab Q4HP PRN PO MILD/MODERATE PAIN (PS 1-7) Last administered on 05/24/18at 12:57; Start 05/24/18 at 12:15 Oxycodone/ Acetaminophen (Percocet 5mg/ 325mg Tablet) 2 tab Q4HP PRN PO SEVERE PAIN (PS 8-10) Last administered on 05/25/18at 03:34; Start 05/24/18 at 12:15 Pantoprazole Sodium (Protonix) 40 mg DAILY IV Last administered on 05/24/18at 08:30; Start 05/12/18 at 09:00 Piperacillin Sod/ Tazobactam Sod 3.375 gm/Dextrose 50 ml @ 50 mls/hr Q6H IV Last administered on 05/25/18at 05:29; Start 05/14/18 at 12:00 Potassium Chloride 10 meq/ IV Miscellaneous Supplies 100 ml @ 100 mls/hr 0630,0730,0830 IV Last administered on 05/14/18at 10:10; Start 05/14/18 at 06:30; Stop 05/14/18 at 12:00; Status DC Potassium Chloride 10 meq/ IV Miscellaneous Supplies 100 ml @ 100 mls/hr 0700,0800,0900 IV Last administered on 05/22/18at 13:02; Start 05/22/18 at 07:00; Stop 05/22/18 at 12:00; Status DC Potassium Chloride 10 meq/ IV Miscellaneous Supplies 100 ml @ 100 mls/hr 1000,1100,1200 IV Last administered on 05/22/18at 17:30; Start 05/22/18 at 10:00; Stop 05/22/18 at 14:00; Status DC Potassium Chloride 10 meq/ IV Miscellaneous Supplies 100 ml @ 100 mls/hr Q1H IV Last administered on 05/15/18at 16:38; Start 05/15/18 at 09:30; Stop 05/15/18 at 15:29; Status DC Potassium Chloride 10 meq/ IV Miscellaneous Supplies 100 ml @ 100 mls/hr Q1H IV Last administered on 05/16/18at 13:16; Start 05/16/18 at 12:00; Stop 05/16/18 at 13:59; Status DC Potassium Chloride 10 meq/ IV Miscellaneous Supplies 100 ml @ 100 mls/hr Q1H IV Last administered on 05/18/18at 11:36; Start 05/18/18 at 08:00; Stop 05/18/18 at 11:59; Status DC Potassium Chloride 10 meq/ IV Miscellaneous Supplies 100 ml @ 100 mls/hr Q1H IV ; Start 05/20/18 at 10:00; Stop 05/20/18 at 13:59; Status Cancel Potassium Chloride 10 meq/ IV Miscellaneous Supplies 100 ml @ 100 mls/hr Q1H IV Last administered on 05/21/18at 15:54; Start 05/21/18 at 09:00; Stop 05/21/18 at 18:59; Status DC Potassium Chloride 10 meq/ IV Miscellaneous Supplies 100 ml @ 100 mls/hr Q1H IV Last administered on 05/14/18at 21:01; Start 05/14/18 at 17:00; Stop 05/14/18 at 19:59; Status DC Potassium Chloride 20 meq/ IV Miscellaneous Supplies 100 ml @ 100 mls/hr ASDIRECTED IV ; Start 05/22/18 at 06:45; Status UNV Potassium Chloride 20 meq/ IV Miscellaneous Supplies 100 ml @ 100 mls/hr Q1H IV Last administered on 05/20/18at 11:54; Start 05/20/18 at 11:00; Stop 05/20/18 at 12:59; Status DC Potassium Chloride 20 meq/ Insulin Human Regular 10 units/ Amino Ac/Electrol/ Dextrose/Calcium 2,010.1 ml @ 80 mls/hr ONCE@1800 IV Last administered on 05/18/18at 18:19; Start 05/18/18 at 18:00; Stop 05/19/18 at 17:59; Status DC Potassium Chloride/Dextrose/ Sod Cl 1,000 ml @ 75 mls/hr [id number] IV Last administered on 05/16/18at 07:36; Start 05/14/18 at 06:15; Stop 05/16/18 at 21:33; Status DC Propofol (Diprivan) TITRATE TO MARJORIE 2-3 ASDIRECTED IV ; Start 05/16/18 at 21:00; Stop 05/16/18 at 22:30; Status DC Propofol 1000 mg/ IV Miscellaneous Supplies 100 ml @ 3.85 mls/hr Q24H IV ; Start 05/16/18 at 21:20; Stop 05/18/18 at 12:37; Status DC Sodium Chloride 1,000 ml @ 100 mls/hr Q10H IV ; Start 05/12/18 at 13:18; Stop 05/12/18 at 16:11; Status DC Vancomycin HCl 1000 mg/IV Miscellaneous Supplies 1 each/ Dextrose 270 ml @ 270 mls/hr Q12H IV Last administered on 05/25/18at 07:41; Start 05/21/18 at 08:00 Allergies Coded Allergies: No Known Allergies (Unverified , 02/27/18) Objective Physical Examination Examination GENERAL APPEARANCE: Patient looks mildly uncomfortable. SKIN: Warm and dry. HEENT: Normocephalic, atraumatic. Mild pale palpebral conjunctiva palpebral conjunctiva, anicteric sclerae. Lips and mucosa appear moist. NECK: Supple, no thyromegaly. No obvious jugular venous distention. LUNGS: Relatively clear to auscultation on the upper lobes bilaterally, diminished in both lower lobes, same as he was examination HEART: No chest wall abnormalities. Regular rate and rhythm with no murmurs appreciated. ABDOMEN: Abdomen is moderately distended, soft, and tympanitic to percussion, quiet. I examined his midline wound. A dressing has not been changing a couple days. There is some small amount of pinkish serous sanguinous drainage from the area just above the umbilicus. I probed this with a cotton tip applicator and only got thin serous fluid no signs of wound infection to explain the leukocytosis. Tender to palpation over the left upper quadrant area. EXTREMITIES: Mild lower extremity edema improving. Vital Signs Vital Signs Date Time Temp Pulse Resp B/P (MAP) Pulse Ox O2 Delivery O2 Flow Rate FiO2 05/25/18 08:00 95.6 101 20 133/71 (91) 92 Room Air 05/24/18 19:50 2.0 05/20/18 17:35 50 I&Os I&O- Last 24 Hours up to 6 AM 05/25/18 06:00 Intake Total 360 ml Output Total 2525 ml Balance -2165 ml Laboratory Data Labs 24H Laboratory Tests 2 05/24/18 12:01: Bedside Glucose (Misc Panel) 132H 05/25/18 05:38: Nucleated Red Blood Cells % (auto) 0.0, Anion Gap 10, Glomerular Filtration Rate > 60.0, Blood Urea Nitrogen 23H, Creatinine 1.06, Sodium Level 138, Potassium Level 4.0, Chloride Level 97L, Carbon Dioxide Level 31, Calcium Level 7.8L, Aspartate Amino Transf (AST/SGOT) 65H, Alanine Aminotransferase (ALT/SGPT) 62, Alkaline Phosphatase 271H, Total Bilirubin 0.7, Total Protein 5.8L, Albumin 1.5L, Magnesium Level 1.8, Albumin/Globulin Ratio 0.35L CBC/BMP Laboratory Tests 05/25/18 05:38 Red Blood Count 3.07 L, Mean Corpuscular Volume 91.2, Mean Corpuscular Hemoglob in 30.0, Mean Corpuscular Hemoglobin Concent 32.9, Red Cell Distribution Width 12.6, Calcium Level 7.8 L, Aspartate Amino Transf (AST/SGOT) 65 H, Alanine Aminotransferase (ALT/SGPT) 62, Alkaline Phosphatase 271 H, Total Bilirubin 0.7, Total Protein 5.8 L, Albumin 1.5 L Microbiology Microbiology 05/20/18 Blood Culture - Preliminary, Resulted No Growth after 72 hours. All specime... 05/20/18 Blood Culture - Preliminary, Resulted No Growth after 72 hours. All specime... 05/19/18 Blood Culture - Final, Complete NO GROWTH AFTER 5 DAYS 05/19/18 Blood Culture - Final, Complete NO GROWTH AFTER 5 DAYS Impression Postop day 11 after exploratory laparotomy, extensive lysis of adhesions, repair of enterotomy and serosal tears, release of bowel obstruction Acute hypoxemic respiratory failure secondary to above as well as to possible aspiration pneumonitis, pneumonia improving Acute renal failure from severe dehydration from the bowel obstruction improving Electrolyte derangements, hypokalemia from the NG tube losse, hypernatremia, alkalosis -- improved physical decompensation/weakness - PT He looks distended today. He also has a bump in his WBC count up to 17,000 he has been afebrile for the past 24 hours though he did have a lump of 102 of temperature 2 days prior. He also is complaining of a new abdominal discomfort which has not been present for the past couple of days. I'll put him nothing by mouth. He may need a nasogastric tube placed back. He'll get a CT of the chest a bdomen and pelvis. Further recommendations after the test and on serial reexamination. Plan / VTE VTE Prophylaxis Ordered?: Yes (SQ heparin. TEDs and Sequentials.) Plan / Urinary Catheter Urinary Catheter: D/C Little Reason for insertion/continuin: Critical Pt monitoring SUNNY AVALOS MD May 25, 2018 08:42
[2018-05-25] MEDS ORDERED: ISOVUE-370 76% 100ML VIAL (Q9967) As Ordered ONE (09:09)
--- NOTE | 2018-05-25 11:55 | REP ---
CT CHEST WITH IV CONTRAST: HISTORY: Postoperative day 9 from laparotomy with lysis of adhesions and small bowel repair. Fever, leukocytosis, rule out abscess or pneumonia. Prior total colectomy. Comparison CT study is from May 20, 2018. CT CONTRAST DOSE: 100 mL of intravenous Isovue 370. CT FINDINGS: Digital preliminary family and consumer education teacher radiograph demonstrates numerous moderately dilated air and fluid-filled small bowel loops filling the abdomen. The esophagus is filled with oral contrast and fluid. The esophagus is somewhat dilated. There is no evidence of pulmonary embolus. No aortic dissection or aneurysm is seen. There are small bilateral pleural effusions. There is extensive consolidation in the lower lobes bilaterally consistent with pneumonia. Air bronchograms are seen. There is some patchy ground-glass opacities in the upper lobes. In comparison with the May 20, [address] study, there is some improvement in aeration in the superior segment left lower lobe although considerable opacification persists. There is some increased opacification in the superior segment of the right lower lobe. The nasogastric tube has been removed in the interval since the May 20 study. IMPRESSION: Extensive bilateral lower lobe consolidation consistent with pneumonia. Small bilateral pleural effusions. Dilated fluid-filled esophagus. The right lower lobe infiltrate appears more pronounced. There is some improvement noted on the left. Electronically Signed by Darius Adames MD 05/25/2018 03:09 P
--- NOTE | 2018-05-25 12:18 | REP ---
CT ABDOMEN AND PELVIS WITH IV AND ORAL CONTRAST: HISTORY: Postop day #9 status post lysis of adhesions and small bowel repair. Prior history of colectomy. Leukocytosis and fever. Question abscess. COMPARISON: CT study May 14, 2018. CT CONTRAST DOSE: 100 mL of intravenous Isovue 370. CT FINDINGS: There is moderate to marked gastric distension of orally administered barium. The esophagus is dilated and fluid-filled as described on the chest CT. There are multiple moderately dilated loops of small bowel filling the abdomen on the poker manager view and on CT images. No focal hepatic lesion is seen. Spleen is unremarkable. No adrenal lesion is seen. There is hydronephrosis on the right as a new finding, moderate in degree. A right lower quadrant enterostomy is seen in place. There is diffusely dilated small bowel throughout the abdomen and pelvis. Urinary bladder is mildly distended. There is ascitic fluid in the pelvic reflections. There is some interloop ascitic fluid in the upper abdomen. No abscess is appreciated. The distal ureters are slightly dilated bilaterally. The patient is status post abdominoperineal resection. IMPRESSION: No drainable abscess. Dilated air and fluid-filled small bowel loops throughout the abdomen. There is mild ascitic fluid in the pelvic reflections and in the upper abdomen. Esophageal and gastric distension filled with fluid. New hydronephrosis on the right. Urinary bladder is distended. Electronically Signed by Darius Adames MD 05/25/2018 03:09 P
[2018-05-25] MEDS ORDERED: NS 1,000 ML IV ONE (12:30)
[2018-05-25] MEDS: LR 1,000 ML IV SCH ×2 (13:21→20:38)
--- NOTE | 2018-05-25 13:23 | REP ---
Portable chest x-ray: Single view. History: NG tube placement. Comparison study: May 21, 2018. Findings: EKG monitoring electrodes overlie the chest. Nasogastric tube is seen to be looped in the distal esophagus. A left subclavian line terminates in the expected location of the superior vena cava. There are increased markings in the bases bilaterally and there is blunting of the pleural angles. Mild cardiomegaly. Impression: NG tube is doubled back upon itself in the distal esophagus. This should be repositioned. Electronically Signed by Darius Adames MD 05/25/2018 03:10 P
[2018-05-25] MEDS: KETOROLAC 30 MG/ML VIAL (J1885) IV SCH ×2 (14:52→22:25)
--- NOTE | 2018-05-25 15:50 | IPNPDOC ---
Text Note Date of Service The patient was seen on 05/25/18. NOTE CT chest Extensive bilateral lower lobe consolidation consistent with pneumonia. Small bilateral pleural effusions. Dilated fluid-filled esophagus. The right lower lobe infiltrate appears more pronounced. There is some improvement noted on the left. CT abdomen and pelvis No drainable abscess. Dilated air and fluid-filled small bowel loops throughout the abdomen. There is mild ascitic fluid in the pelvic reflections and in the upper abdomen. Esophageal and gastric distension filled with fluid. New hydronephrosis on the right. Urinary bladder is distended. He came back and reevaluated Mr. Stanley. He has a nasogastric tube placed right after the CT scan was performed. He was initially hypotensive when he returned. He responded with 1 L IV fluids. He is on 150 miles an hour of lactated Ringer's now. He also has a nasogastric tube adjusted. This is draining about 600 ML since placement. He has a Little catheter in place again with clear urine. He reports he is feeling much better now with the nasogastric tube decompression. On exam he is not visibly short of breath, mildly tachypneic. Lungs sounds are clear anteriorly but diminished in both bases Abdomen is flatter, softer, quiet. He has a small amount of stool in his right lower quadrant ostomy though nurse tells me this has not been drained or opened up so this is not accumulated much since this morning. Impression: Small bowel obstruction. I presume he is having postoperative bowel obstruction. Other alternatives are persistent ileus. The upper abdomen seems to be more distended than the distal abdomen. He feels better after the decompression with nasogastric tube. We will keep the nasogastric tube I'll keep him on lactated Ringer's for today. He most likely will need to be placed back on TPN if there is no improvement. I'm not available for the next couple weeks and I have discussed his care with Dr. Mcdaniel. Leonardo IYER, I+O Leonardo IYER, I+O Laboratory Tests 05/25/18 05:38 Red Blood Count 3.07 L, Mean Corpuscular Volume 91.2, Mean Corpuscular Hemoglobin 30.0, Mean Corpuscular Hemoglobin Concent 32.9, Red Cell Distribution Width 12.6, Calcium Level 7.8 L, Aspartate Amino Transf (AST/SGOT) 65 H, Alanine Aminotransferase (ALT/SGPT) 62, Alkaline Phosphatase 271 H, Total Bilirubin 0.7, Total Protein 5.8 L, Albumin 1.5 L Vital Signs Date Time Temp Pulse Resp B/P (MAP) Pulse Ox O2 Delivery O2 Flow Rate FiO2 05/25/18 15:01 101/58 (72) 05/25/18 12:00 2.0 05/25/18 12:00 96.8 110 25 91 Nasal Cannula 05/20/18 17:35 50 I&O- Last 24 Hours up to 6 AM 05/25/18 06:00 Intake Total 360 ml Output Total 2525 ml Balance -2165 ml SUNNY AVALOS MD May 25, 2018 15:50
[2018-05-25] MEDS ORDERED: SODIUM CHLORIDE 0.9% INJ 10 ML SYR IV PRN (20:15)
[2018-05-25] MEDS ORDERED: SODIUM CHLORIDE 0.9% INJ 10 ML SYR IV SCH (22:00)
[2018-05-26 04:00] VITALS: BP 132/96
[2018-05-26] MEDS: LR 1,000 ML IV SCH ×2 (04:58→18:31)
[2018-05-26] MEDS: SODIUM CHLORIDE 0.9% INJ 10 ML SYR IV PRN (04:58)
[2018-05-26 05:07] LABS: HEMATOCRIT 22.5 % (42.0-52.0); HEMOGLOBIN 7.5 g/dl (13.5-17.5); MEAN CORPUSCULAR HEMOGLOBIN 30.4 pg (27.0-33.0); MEAN CORPUSCULAR HGB CONC 33.3 g/dl (32.0-36.5); MEAN CORPUSCULAR VOLUME 91.1 fl (80.0-96.0); PLATELET COUNT, AUTOMATED 418 10^3/uL (150-450); RED BLOOD COUNT 2.47 10^6/uL (4.30-6.10); WHITE BLOOD COUNT 14.6 10^3/uL (4.0-10.0)
[2018-05-26] MEDS: SODIUM CHLORIDE 0.9% INJ 10 ML SYR IV SCH ×3 (05:10→22:08)
[2018-05-26 05:47] LABS: ALBUMIN 1.3 GM/DL (3.2-5.2); BILIRUBIN,TOTAL 0.6 MG/DL (0.2-1.0); CALCIUM LEVEL 7.9 MG/DL (8.8-10.2); CREATININE FOR GFR 1.91 MG/DL (0.70-1.30); GLOMERULAR FILTRATION RATE 36.5 (>42); MAGNESIUM LEVEL 1.6 MG/DL (1.8-2.4); POTASSIUM SERUM 4.2 MEQ/L (3.5-5.1); TOTAL PROTEIN 5.9 GM/DL (6.4-8.2)
[2018-05-26] MEDS: ALBUTEROL SULFATE 2.5 MG/0.5 ML INH NEB SOLN NEB PRN (05:48)
[2018-05-26] MEDS: HEPARIN SOD (PORCINE) 5000 UNITS/ML VIAL SQ SCH ×3 (06:29→22:07)
[2018-05-26] MEDS: KETOROLAC 30 MG/ML VIAL (J1885) IV SCH ×2 (06:30→15:49)
[2018-05-26] MEDS: PIPERACILLIN/TAZOBACTAM SOD 3.375 GM in D5W MINI-BAG PLUS 50 ML IV SCH ×2 (06:30→12:47)
[2018-05-26] MEDS: IPRATROPIUM 0.5MG/ALBUTEROL 2.5MG INH SOL UD 3ML (DUONEB)(J7620) NEB SCH ×4 (07:08→21:28)
--- NOTE | 2018-05-26 07:40 | IPNPDOC ---
Subjective Date Seen The patient was seen on 05/25/18. Subjective Chief Complaint/HPI Patient reports that he is in a lot of abdominal pain today and feels very bloated in his stomach. Feels pressure type discomfort in abdominal region. NG tube and santacruz catheter are both out this AM. Patient reports that he is going for a CT scan of his chest/abdomen/pelvis this AM. He unfortunately feels more uncomfortable today than prior. TPN d/ce'd yesterday. However, patient reports he did not desire to eat anything this morning due to the significant abdominal bloating discomfort he is feeling. Constitutional: Denies: Chills, Fever ENT: Denies: Head Aches Skin: Denies: Rash Pulmonary: Denies: Dyspnea Cardiovascular: Denies: Chest Pain Gastrointestinal: Reports: Abdominal Pain (mainly in L abdomen along with abdominal bloating/pressure discomfort), Constipation (is having output still in ileostomy bag); Denies: Nausea, Vomiting, Diarrhea Genitourinary: Denies: Dysuria Hematologic: Denies: Bruising Endocrine: Denies: Polyuria Musculoskeletal: Denies: Joint Pain, Muscle Pain Neurological: Reports: Weakness (generalized); Denies: Confusion Psych: Reports: Mood Normal (still in high spirits and wants to get better so he can live to 90) Objective Physical Examination General Exam: Positive: Alert, Cooperative, Mild Distress (Still with labored breathing noted today more than yesterday), Other (Frail elderly caucasain M lying in bed comfortably. ) Eye Exam: Positive: Conjunctiva & lids normal; Negative: Sclera icteric ENT Exam: Positive: Atraumatic Neck Exam: Positive: Supple Chest Exam: Positive: Clear to auscultation, Diminished (but mainly clear); Negative: Rales, Rhonchi, Wheezing Heart Exam: Positive: Rate Normal, Regular Rhythm, Normal S1, Normal S2; Negative: Murmurs Telemetry: Positive: No significant arrhythmia, Sinus Abdomen Exam: Positive: Normal bowel sounds, Soft, Tenderness ((+)moderate tenderness to palpation of LUQ and LLQ and mid-abdominal region > R abdomen. Abdomen is a bit distended today. Abdominal bandage at incisonal site clean/dry/intact.), Other (ileostomy site with good amount of dark brown output; bandage without any stains/drainage) Extremity Exam: Negative: Edema Skin Exam: Positive: Nl turgor and temperature; Negative: Rash Neuro Exam: Positive: Normal Speech Psych Exam: Positive: Mental status NL, Mood NL, Oriented x 3 Assessment /Plan Problems (1) Status post exploratory laparotomy Status: Acute Response to Treatment: Stable Problem Text: 05/25: Post-op day #9. NG tube has been placed back by Dr. Ontiveros. Still has output in ileostomy. According to CT scan of chest/abdomen/pelvis, it seems patient still has ileus and is unable to get rid of the fluid in his abdomen and bladder. Have ordered nursing to place santacruz back in to help relieve fluid from pelvic region/ tract. Likely recovery will be a very slow course and ileus will take longer time to reverse. Still encourage working with PT to help with ileus. Continue management as per General Surgery. Pain control as per General Surgery. 05/24/18: Post-op day #8. Patient is tolerating full liquid diet. Good output in his ileostomy. General surgery still following. He continues to work with PT 05/23: Post-op day #7. NG tube was discontinued today. Is still having good ileostomy output and is still on TPN. Abdomen appropriately slightly tender to palpation in mid-abdominal region today at incisional site. Still with hypoact roro bowel sounds. 05/22: Post-op day #6. Management as per General Surgery. Still on TPN and has N G tube that is still having output. Ileostomy output is still good. Abdomen nontender to palpation today, but still with hypoactive bowel sounds. Will reorder PT/OT today. 05/20: Is post-operative day #4. Still on TPN with K and Mg replacement as per General Surgery. Has increased output from ileostomy site now which has improved. Abdomen still distended but not as tender to palpation--improving. Still hypoactive bowel sounds on auscultation. 05/19 - per surgery On TPN 05/18: Post-operative day #2. Patient on TPN. Minimal output from ileostomy site. Will likely have prolonged course of ileus. Still diffusely tender to palpation of abdomen, but is appropriate and soft. Important to rule out postoperative fever as patient has been having fevers with Tmax of 101.2 yesterday at noontime. Consider UA. CXR from today showed: There is pleuroparenchymal opacity again noted in the left base obscuring the left hemidiaphragm as before. There is slight haziness in the right base which may reflect a small amount of right pleural fluid. Will watch for signs of pneumo rock. Currently on day 5 of zosyn. 05/17: Patient is status-post exploratory laparotomy, lysis of adhesions, repair of enterotomy and serosal tears, release of bowel obstruction post-op day #1. Apparently, surgery took around 7 hours and patient is in need of ventilator support at this time post-surgery. General surgery is following and managing the SBO and [employer] is consulted to help further manage respiratory support. (2) SBO (small bowel obstruction) Status: Acute Response to Treatment: Improving Problem Text: 05/25: Post-op day #9: Management as per general Surgery. 05/24/18: Post-op day #8. Management per general surgery 05/23: Post-Op day #7. Management as per General Surgery. Have encouraged PT/OT and ordered this yesterday so that it can help with patient's post-op ileus. 05/22: Post-Op day #6. Management as per General Surgery. 05/20: Management as per General Surgery, now Dr. Lloyd Valente. Patient is post- op day #4. Spoke briefly to Dr. Valente who states that NG tube will not be removed today. Patient is still having a moderate amount of NG tube output, and it will still take some more time to decompress bowel. 05/18: Dr. Ontiveros of general surgery following and managing. Post-op day #2. 05/17: Status-post exp laparotomy, lysis of adhesions, and release of bowel obstruction post-operative day 1. Is on epidural fentanyl for post-operative pain control. TPN will be started by Dr. Ontiveros today and there is anticipated prolonged course of ileus until return of normal bowel function. This problem is being managed by Dr. Ontiveros of surgery. He seems to be making some improvement with the NG tube drainage, but is still pretty uncomfortable. Will defer to surgery for further management of this problem. (3) Aspiration pneumonitis Status: Acute Problem Text: 05/25: Day #12 Zosyn and Day #5 of Vancomycin. WBC is unfortunately trending up and up to 17.6 today. Suspect that patient has another source of infection other than abdominal abscess that may not be clear to us right now. Will consider ID consult with Dr. Wilkins if WBC goes up tomorrow. Afebrile all throughout 05/24/18 as well. 05/24/18: Remains on Zosyn (started on 05/14/18) and on Vancomycin (started on 05/21/19). WBC 11.2, T-max of 102.9 at 23:59 on 05/23/18. BC remain negative after 72 hours. Reports continued cough with sputum production. I will discuss with attending about repeat Chest x-ray and/or sputum culture 05/23: Day #10 of Zosyn and Day #3 of Vancomycin. WBC trending down to 10.5. Tmax was 100.7 at midnight last night. Currently, patient has been afebrile since. 05/22: Post-operative fevers likely secondary to aspiration pneumonia vs. multifocal pneumonia (HCAP). Day #9 of Zosyn and was begun on Vancomycin yesterday for more broad spectrum coverage. WBC trending down to 12.2. Tmax was 100.1 at midnight. Has been afebrile since. CT chest on 05/20 had shown bilateral lower lobe consolidation and atelectasis, persistent R middle lobe multifactorial patchy densities, new mild patchy ground glass opacities within both upper lobes, diffuse infiltrates and small pleural effusions. 05/20: Day #7 Zosyn. WBC trending down from 16.1 to 11.8. Patient has been afebrile since 2 PM yesterday and satting in the 90s on room air. CXR today shows no significant change, bibasilar opacities and cardiomegaly status-quo. Blood cx show NGTD x 24 hours. 05/19 D#6 Zosyn. WBC up slightly B/C and f/u CXR pending - ordered by pulmonary Resp status improve - extubated on NC 05/18: Day #5 of zosyn. CXR was similar to prior. Please see under assessment #1. Continue to monitor clinically. 05/17: Likely secondary from reflux of gastric contents/secretions from NG tube. Continue zosyn. Day #4. (4) Acute respiratory failure with hypoxia Status: Resolved Response to Treatment: Stable Problem Text: 05/25: Stable O2 saturations in the 90s on 2L NC. 05/24/18: Remains on O2 vial nasal cannula to maintain saturations of >90% 05/23: Patient's O2 saturation was 93% on 2L nasal cannula. Have instructed staff to titrate patient's O2 above 90%, but not too high so as to avoid oxygen toxicity. Patient is still having net negative diuresis of 2.831 liters yesterday and -1.4 liters today. Is having good urine output: 1.99 mL/kg/hr. Weight is down from 67.9 kg to 66.4 kg today. Still on lasix 40 mg q6h IV. His lungs sound much clearer to me today. I believe his respiratory status has clinically improved from prior. Will continue santacruz for now to monitor net negative diuresis until this is complete. Also has epidural for pain control. 05/22: Hypoxia secondary to pulmonary edema secondary to diastolic CHF/volume overload. Patient had net negative diuresis of at least 2 liters yesterday. His O2 saturation has improved and he is requiring less oxygen than 2 days ago. He is now on 2 liters O2 via nasal cannula from 6 liters previously. 05/20: Improved. Is satting in the 90s on room air without significant work of breathing. Is in NAD. Still mildly tachypneic with RR in the low 20s. 05/19 - successfully tolerated extubation - on NC today - Per Pulmonary 05/18: Trial of weaning off ventilator was not predictive of success for extubation. Dr. Hays will be performing another trial today. 05/17: Patient went into acute hypoxic respiratory failure status-post surgery yesterday. Remained intubated and was placed on mechanical ventilation. Dr. Hays will be trying to wean patient to assess weather his SBI will go to <104 and if patient can take deep and slow breaths which would indicate success if patient were to be extubated. She will determine this today. He may be able to be extubated either today or tomorrow. (5) Low hemoglobin Status: Acute Problem Text: 05/25: Hgb was 9.2 today which is encouraging. Continue to monitor CBC. 05/24/18: Hgb 8.1 today. We will continue to monitor 05/23: Patient's Hgb last night was 7.9 and did not drop below 7.9 from yesterday AM. This morning, Hgb was 8.4. It is thus stable. We will continue to monitor his CBC and hold off on transfusion for now. 05/22: Patient's Hgb dropped down to 7.9. Will need to keep an eye on this and will recheck CBC in 12 hours from the one performed earlier today: at 1722. Nursing to call provider if repeat CBC shows Hgb <7.7. (6) Acute kidney injury Status: Resolved Problem Text: 05/25: BUN 23 and Cr 1.06. Kidney fx stable. GFR >60. Continue to monitor. 05/24/18:BUN/Cre 22/1.09, GFR > 60, remains stable 05/23: Cr 1.18 and stable. Continue monitoring via BMP. On lasix for diuresis. 05/22: Creatinine stable. Monitor renal fx due to risk of kidney injury from diuresis with lasix. 05/20: Creatinine continuing to improve and is down to 1.13 from 1.25 yesterday. 05/19 - Crea continues to improve. Na+ 151, K+ low this am Surgery managing IVF and electrolyte replacement 05/18: Cr improved today to 1.52 from 1.60 yesterday. Continue to monitor BMP. Is getting IV hydration and TPN which is a concern for 3rd spacing of fluid. Does have trace edema in bilateral lower extremities. Dr. Hays was recommending to try some lasix. 05/17: Creatinine bumped up to 1.60 today with GFR lower at 44.7 from yesterday and is likely from severe dehydration from bowel obstruction. Will continue to monitor BMP and continue IV hydration as necessary. His BUN is down a little, but his creatinine is up. Overall his GFR is down a little more today. Will continue the IV hydration and monitor. I believe that he was significantly dehydrated by the time he was admitted. (7) Hypertension Status: Chronic Response to Treatment: Stable Problem Specific Plan: Monitor Clinically Problem Text: 05/25: Well controlled. Continue to monitor. 05/24/18: Remains well controlled 05/23: Stable and controlled. 05/22: Stable and controlled. BP was 124/60 today. 05/20: Stable and controlled. BP 140/69 today. 05/18: stable and controlled. Not on any antihypertensives. 05/17: BP well controlled without any antihypertensives. At this time, will hold any antihypertensives. His BP is well controlled at this time. Continue current regimen. Plan/VTE VTE Prophylaxis Ordered?: Yes (SQ heparin. TEDs and Sequentials.) Plan/Urinary Catheter Urinary Catheter: D/C Santacruz Reason for insertion/continuin: Critical Pt monitoring Plan IVF: Decrease Disposition Pending clinical improvement. VS, I&O, 24H, Fishbone Vital Signs/I&O Vital Signs Date Time Temp Pulse Resp B/P (MAP) Pulse Ox O2 Delivery O2 Flow Rate FiO2 05/26/18 05:38 Nasal Cannula 2.0 05/26/18 04:00 96.1 105 18 132/96 (108) 90 05/20/18 17:35 50 I&O- Last 24 Hours up to 6 AM 05/26/18 06:00 Intake Total 2700 ml Output Total 2825 ml Balance -125 ml Laboratory Data 24H LABS Laboratory Tests 2 05/25/18 19:20: Vancomycin Level Trough 32.1*H 05/26/18 04:56: Nucleated Red Blood Cells % (auto) 0.0, Anion Gap 11, Glomerular Filtration Rate 36.5L, Blood Urea Nitrogen 45#H, Creatinine 1.91#H, Sodium Level 137, Potassium Level 4.2, Chloride Level 99, Carbon Dioxide Level 27, Calcium Level 7.9L, Aspartate Amino Transf (AST/SGOT) 26, Alanine Aminotransferase (ALT/SGPT) 39, Alkaline Phosphatase 174H, Total Bilirubin 0.6, Total Protein 5.9L, Albumin 1.3L, Magnesium Level 1.6L, Albumin/Globulin Ratio 0.28L CBC/BMP Laboratory Tests 05/26/18 04:56 Red Blood Count 2.47 L, Mean Corpuscular Volume 91.1, Mean Corpuscular Hemoglobin 30.4, Mean Corpuscular Hemoglobin Concent 33.3, Red Cell Distribution Width 13.2, Calcium Level 7.9 L, Aspartate Amino Transf (AST/SGOT) 26, Alanine Aminotransferase (ALT/SGPT) 39, Alkaline Phosphatase 174 H, Total Bilirubin 0.6, Total Protein 5.9 L, Albumin 1.3 L Microbiology Microbiology 05/20/18 Blood Culture - Final, Complete NO GROWTH AFTER 5 DAYS 05/20/18 Blood Culture - Final, Complete NO GROWTH AFTER 5 DAYS 05/19/18 Blood Culture - Final, Complete NO GROWTH AFTER 5 DAYS 05/19/18 Blood Culture - Final, Complete NO GROWTH AFTER 5 DAYS GME ATTESTATION ATTENDING NOTE Family Medicine Attending Note: I was present on site to supervise Nisha Caicedo D.O. (OGME-3). We discussed the history and exam. I confirmed the castano elements during my sdsn-cw-athe encounter with the patient. We conferred on the assessment and plan; I agree with the note as documented. Unfortunately Mr. Stanley seems to be taking a downturn. He probably has return of his ileus or maybe even another small bowel obstruction. We will need to monitor him carefully. (clinical resource director) BERYL CAICEDO DO May 26, 2018 6:30 am Andriy Leslie MD May 28, 2018 12:33 am
[2018-05-26 08:00] VITALS: BP 130/60
--- NOTE | 2018-05-26 08:20 | REP ---
Portable chest x-ray: Single AP view. History: NG tube placement. Comparison study: May 25, 2018. Findings: EKG monitoring electrodes overlie the chest. There is a left subclavian catheter in place with its tip in the expected location of the superior vena cava. The nasogastric tube remains looped back upon itself within the distal esophagus. There are bibasilar pleuroparenchymal opacity is again noted unchanged. Electronically Signed by Darius Adames MD 05/26/2018 08:12 A
[2018-05-26] MEDS: PANTOPRAZOLE 40MG INJ (PROTONIX) (C9113) IV SCH (09:53)
[2018-05-26] MEDS: NYSTATIN 500,000 U/5 ML SUSP UDC SS SCH ×4 (09:53→22:07)
[2018-05-26] MEDS: MAG SULF 1GM/100ML (MAG RUN) 1 GM in APPROPRIATE DILUENT 1 EA IV SCH ×2 (09:54→11:09)
--- NOTE | 2018-05-26 11:32 | IPNPDOC ---
Subjective Date Seen The patient was seen on 05/26/18. Subjective Chief Complaint/HPI Patient seen and examined at bedside. Denies abdominal pain today. However, states he doesn't feel like he is making much improvement. He feels tired. Denies SOB. Constitutional: Denies: Chills, Fever ENT: Denies: Head Aches Skin: Denies: Rash Pulmonary: Denies: Dyspnea Cardiovascular: Denies: Chest Pain Gastrointestinal: Denies: Nausea, Vomiting, Abdominal Pain, Diarrhea, Constipation Genitourinary: Denies: Dysuria, Frequency Hematologic: Denies: Bruising Endocrine: Denies: Heat Intolerance, Cold Intolerance Musculoskeletal: Denies: Joint Pain, Muscle Pain Neurological: Reports: Weakness (generalized); Denies: Confusion Psych: Reports: Mood Normal Objective Physical Examination General Exam: Positive: Alert, Cooperative, Mild Distress (Still with labored breathing noted today similar to yesterday), Other (Frail elderly caucasain M lying in bed comfortably. Is tachypneic as usual using accessory muscles in neck (SCMs)) Eye Exam: Positive: Conjunctiva & lids normal ENT Exam: Positive: Atraumatic Neck Exam: Positive: Supple Chest Exam: Positive: Clear to auscultation, Diminished (but mainly clear); Negative: Rales, Rhonchi, Wheezing Heart Exam: Positive: Tachycardic, Regular Rhythm, Normal S1, Normal S2; Negative: Murmurs Telemetry: Positive: Sinus, Tachycardia, Other Telemetry: (HR ranging from 101- 110) Abdomen Exam: Positive: Normal bowel sounds, Soft, Tenderness ((+)moderate tenderness to palpation of RUQ and RLQ and mid-abdominal region. Abdomen less distended today. Abdominal bandage at incisonal site stained through with brown blood.), Other (ileostomy site with output still; bandage with stains today.) Extremity Exam: Negative: Edema Skin Exam: Positive: Nl turgor and temperature; Negative: Rash Neuro Exam: Positive: Normal Speech Psych Exam: Positive: Mental status NL, Mood NL, Oriented x 3 Assessment /Plan Problems (1) Status post exploratory laparotomy Status: Acute Response to Treatment: Stable Problem Text: 05/26: Post-op day #10. Abdomen less distended today and patient reports less bloating and abdominal pain today subjectively. However, still worker helper to palpation of RUQ and RLQ as well as mid-abdominal region. Patient, s till has ileus and I have encouraged PT to work with patient to continue to help him. Pain control as per General Surgery. I see that they have added toradol to current pain regimen. Pain seems to be controlled enough today. 05/25: Post-op day #9. NG tube has been placed back by Dr. Ontiveros. Still has output in ileostomy. According to CT scan of chest/abdomen/pelvis, it seems patient still has ileus and is unable to get rid of the fluid in his abdomen and bladder. Have ordered nursing to place santacruz back in to help relieve fluid from pelvic region/ tract. Likely recovery will be a very slow course and ileus will take longer time to reverse. Still encourage working with PT to help with ileus. Continue management as per General Surgery. Pain control as per General Surgery. 05/24/18: Post-op day #8. Patient is tolerating full liquid diet. Good output in his ileostomy. General surgery still following. He continues to work with PT 05/23: Post-op day #7. NG tube was discontinued today. Is still having good ileostomy output and is still on TPN. Abdomen appropriately slightly tender to palpation in mid-abdominal region today at incisional site. Still with hypoactive bowel sounds. 05/22: Post-op day #6. Management as per General Surgery. Still on TPN and has NG tube that is still having output. Ileostomy output is still good. Abdomen nontender to palpation today, but still with hypoactive bowel sounds. Will reorder PT/OT today. 05/20: Is post-operative day #4. Still on TPN with K and Mg replacement as per General Surgery. Has increased output from ileostomy site now which has improved. Abdomen still distended but not as tender to palpation--improving. Still hypoactive bowel sounds on auscultation. 05/19 - per surgery On TPN 05/18: Post-operative day #2. Patient on TPN. Minimal output from ileostomy site. Will likely have prolonged course of ileus. Still diffusely tender to palpation of abdomen, but is appropriate and soft. Important to rule out postoperative fever as patient has been having fevers with Tmax of 101.2 yesterday at noontime. Consider UA. CXR from today showed: There is pleuroparenchymal opacity again noted in the left base obscuring the left hemidiaphragm as before. There is slight haziness in the right base which may reflect a small amount of right pleural fluid. Will watch for signs of pneumonia. Currently on day 5 of zosyn. 05/17: Patient is status-post exploratory laparotomy, lysis of adhesions, repair of enterotomy and serosal tears, release of bowel obstruction post-op day #1. Apparently, surgery took around 7 hours and patient is in need of ventilator support at this time post-surgery. General surgery is following and managing the SBO and Application Security Engineer is consulted to help further manage respiratory support. (2) SBO (small bowel obstruction) Status: Acute Response to Treatment: Improving Problem Text: 05/26: Post-op day #10: Management as per General Surgery. Still suffering from ileus as per yesterday's CT abd/pelvis scan. Have encouraged PT to work with patient more to help with ileus. Have also ordered OT and ARU consult as patient was able to do well with PT yesterday. Please see HPI for details. 05/25: Post-op day #9: Management as per General Surgery. 05/24/18: Post-op day #8. Management per General surgery 05/23: Post-Op day #7. Management as per General Surgery. Have encouraged PT/OT and ordered this yesterday so that it can help with patient's post-op ileus. 05/22: Post-Op day #6. Management as per General Surgery. 05/20: Management as per General Surgery, now Dr. Lloyd Valente. Patient is post- op day #4. Spoke briefly to Dr. Valente who states that NG tube will not be r emoved today. Patient is still having a moderate amount of NG tube output, and it will still take some more time to decompress bowel. 05/18: Dr. Ontiveros of general surgery following and managing. Post-op day #2. 05/17: Status-post exp laparotomy, lysis of adhesions, and release of bowel obstruction post-operative day 1. Is on epidural fentanyl for post-operative pain control. TPN will be started by Dr. Ontiveros today and there is anticipated prolonged course of ileus until return of normal bowel function. This problem is being managed by Dr. Ontiveros of surgery. He seems to be making some improvement with the NG tube drainage, but is still pretty uncomfortable. Will defer to surgery for further management of this problem. (3) Aspiration pneumonitis Status: Acute Problem Text: 05/26: Day #13 Zosyn and Day #6 of Vancomycin. WBC encouragingly is trending down and was down to 14.6 today. Will consult ID for any possible further recommendations for Dr. Wilkins. Has remained afebrile. 05/25: Day #12 Zosyn and Day #5 of Vancomycin. WBC is unfortunately trending up and up to 17.6 today. Suspect that patient has another source of infection other than abdominal abscess that may not be clear to us right now. Will consider ID consult with Dr. Wilkins if WBC goes up tomorrow. Afebrile all throughout 05/24/18 as well. 05/24/18: Remains on Zosyn (started on 05/14/18) and on Vancomycin (started on 05/21/19). WBC 11.2, T-max of 102.9 at 23:59 on 05/23/18. BC remain negative after 72 hours. Reports continued cough with sputum production. I will discuss with attending about repeat Chest x-ray and/or sputum culture 05/23: Day #10 of Zosyn and Day #3 of Vancomycin. WBC trending down to 10.5. Tmax was 100.7 at midnight last night. Currently, patient has been afebrile since. 05/22: Post-operative fevers likely secondary to aspiration pneumonia vs. multifocal pneumonia (HCAP). Day #9 of Zosyn and was begun on Vancomycin yesterday for more broad spectrum coverage. WBC trending down to 12.2. Tmax was 100.1 at midnight. Has been afebrile since. CT chest on 05/20 had shown bilateral lower lobe consolidation and atelectasis, persistent R middle lobe multifactorial patchy densities, new mild patchy ground glass opacities within both upper lobes, diffuse infiltrates and small pleural effusions. 05/20: Day #7 Zosyn. WBC trending down from 16.1 to 11.8. Patient has been afebrile since 2 PM yesterday and satting in the 90s on room air. CXR today shows no significant change, bibasilar opacities and cardiomegaly status-quo. Blood cx show NGTD x 24 hours. 05/19 D#6 Zosyn. WBC up slightly B/C and f/u CXR pending - ordered by pulmonary Resp status improve - extubated on NC 05/18: Day #5 of zosyn. CXR was similar to prior. Please see under assessment #1. Continue to monitor clinically. 05/17: Likely secondary from reflux of gastric contents/secretions from NG tube. Continue zosyn. Day #4. (4) Hypomagnesemia Status: Acute Problem Text: 05/26: Mg level was low at 1.6 today. Have replaced with Mg Sulfate Runs x 2. Will recheck Mg level at 1700. (5) Acute respiratory failure with hypoxia Status: Resolved Response to Treatment: Stable Problem Text: 05/26: O2 saturation has remained in the low 90s at 2L NC. Will consider increasing O2 to 3 L. Will discuss with attending physician for need for this. Patient does not seem to have a prior hx of COPD however. 05/25: Stable O2 saturations in the 90s on 2L NC. 05/24/18: Remains on O2 vial nasal cannula to maintain saturations of >90% 05/23: Patient's O2 saturation was 93% on 2L nasal cannula. Have instructed staff to titrate patient's O2 above 90%, but not too high so as to avoid oxygen toxicity. Patient is still having net negative diuresis of 2.831 liters yesterday and -1.4 liters today. Is having good urine output: 1.99 mL/kg/hr. Weight is down from 67.9 kg to 66.4 kg today. Still on lasix 40 mg q6h IV. His lungs sound much clearer to me today. I believe his respiratory status has clinically improved from prior. Will continue santacruz for now to monitor net negative diuresis until this is complete. Also has epidural for pain control. 05/22: Hypoxia secondary to pulmonary edema secondary to diastolic CHF/volume overload. Patient had net negative diuresis of at least 2 liters yesterday. His O2 saturation has improved and he is requiring less oxygen than 2 days ago. He is now on 2 liters O2 via nasal cannula from 6 liters previously. 05/20: Improved. Is satting in the 90s on room air without significant work of breathing. Is in NAD. Still mildly tachypneic with RR in the low 20s. 05/19 - successfully tolerated extubation - on NC today - Per Pulmonary 05/18: Trial of weaning off ventilator was not predictive of success for extubation. Dr. Hays will be performing another trial today. 05/17: Patient went into acute hypoxic respiratory failure status-post surgery yesterday. Remained intubated and was placed on mechanical ventilation. Dr. Hays will be trying to wean patient to assess weather his SBI will go to <104 and if patient can take deep and slow breaths which would indicate success if patient were to be extubated. She will determine this today. He may be able to be extubated either today or tomorrow. (6) Low hemoglobin Status: Acute Problem Text: 05/26: Hgb unfortunately dropped down to 7.5 today from 9.2 yesterday which is a drastic drop. I have ordered a repeat H&H at 1700 today. 05/25: Hgb was 9.2 today which is encouraging. Continue to monitor CBC. 05/24/18: Hgb 8.1 today. We will continue to monitor 05/23: Patient's Hgb last night was 7.9 and did not drop below 7.9 from yesterday AM. This morning, Hgb was 8.4. It is thus stable. We will continue to monitor his CBC and hold off on transfusion for now. 05/22: Patient's Hgb dropped down to 7.9. Will need to keep an eye on this and will recheck CBC in 12 hours from the one performed earlier today: at 1722. Nursing to call provider if repeat CBC shows Hgb <7.7. (7) Acute kidney injury Status: Resolved Problem Text: 05/26: BUN and Cr unfortunately have trended up and were 45 and 1.91 respectively from 23 and 1.91 yesterday. I suspect this may have to do with possible supratherapeutic dose of vancomycin as the vanc trough level was elevated today at 32.1. Will speak to attending physician and possibly talk to pharmacy regarding adjusting dose for renally dosing the vanco. 05/25: BUN 23 and Cr 1.06. Kidney fx stable. GFR >60. Continue to monitor. 05/24/18:BUN/Cre 22/1.09, GFR > 60, remains stable 05/23: Cr 1.18 and stable. Continue monitoring via BMP. On lasix for diuresis. 05/22: Creatinine stable. Monitor renal fx due to risk of kidney injury from diuresis with lasix. 05/20: Creatinine continuing to improve and is down to 1.13 from 1.25 yesterday. 05/19 - Crea continues to improve. Na+ 151, K+ low this am Surgery managing IVF and electrolyte replacement 05/18: Cr improved today to 1.52 from 1.60 yesterday. Continue to monitor BMP. Is getting IV hydration and TPN which is a concern for 3rd spacing of fluid. Does have trace edema in bilateral lower extremities. Dr. Hays was recommending to try some lasix. 05/17: Creatinine bumped up to 1.60 today with GFR lower at 44.7 from yesterday and is likely from severe dehydration from bowel obstruction. Will continue to monitor BMP and continue IV hydration as necessary. His BUN is down a little, but his creatinine is up. Overall his GFR is down a little more today. Will continue the IV hydration and monitor. I believe that he was significantly dehydrated by the time he was admitted. (8) Hypertension Status: Chronic Response to Treatment: Stable Problem Specific Plan: Monitor Clinically Problem Text: 05/26: BP well controlled today at 132/96. However, I was concerned patient might have been developing some signs of sepsis yesterday as I did notice upon review of VS from yesterday, patient became hypotensive at one point to 76/40 at 12 PM, 98/44 at 13:05, 101/58 at 15:01, and 103/54 at 1600. Today, BP was 132/96 and is much improved. Patient also has become tachycardic since yesterday with HR's running from 101-110. Has also remained tachypneic with RR running into 20s-25. Will continue to monitor. Is receiving lactated ringer's IVF 1000 mL @ 50 mLs/hr. 05/25: Well controlled. Continue to monitor. 05/24/18: Remains well controlled 05/23: Stable and controlled. 05/22: Stable and controlled. BP was 124/60 today. 05/20: Stable and controlled. BP 140/69 today. 05/18: stable and controlled. Not on any antihypertensives. 05/17: BP well controlled without any antihypertensives. At this time, will hold any antihypertensives. His BP is well controlled at this time. Continue current regimen. Plan/VTE VTE Prophylaxis Ordered?: Yes (SQ heparin. TEDs and Sequentials.) Plan/Urinary Catheter Urinary Catheter: D/C Santacruz Reason for insertion/continuin: Critical Pt monitoring Plan IVF: Decrease Disposition Pending clinical improvement. Have consulted PT/OT and ARU. VS, I&O, 24H, Fishbone Vital Signs/I&O Vital Signs Date Time Temp Pulse Resp B/P (MAP) Pulse Ox O2 Delivery O2 Flow Rate FiO2 05/26/18 08:00 99.0 108 19 130/60 (83) 91 Nasal Cannula 2.0 05/20/18 17:35 50 I&O- Last 24 Hours up to 6 AM 05/26/18 06:00 Intake Total 2700 ml Output Total 2850 ml Balance -150 ml Laboratory Data 24H LABS Laboratory Tests 2 05/25/18 19:20: Vancomycin Level Trough 32.1*H 05/26/18 04:56: Nucleated Red Blood Cells % (auto) 0.0, Anion Gap 11, Glomerular Filtration Rate 36.5L, Blood Urea Nitrogen 45#H, Creatinine 1.91#H, Sodium Level 137, Potassium Level 4.2, Chloride Level 99, Carbon Dioxide Level 27, Calcium Level 7.9L, Aspartate Amino Transf (AST/SGOT) 26, Alanine Aminotransferase (ALT/SGPT) 39, Alkaline Phosphatase 174H, Total Bilirubin 0.6, Total Protein 5.9L, Albumin 1.3L, Magnesium Level 1.6L, Albumin/Globulin Ratio 0.28L CBC/BMP Laboratory Tests 05/26/18 04:56 Red Blood Count 2.47 L, Mean Corpuscular Volume 91.1, Mean Corpuscular Hemoglobin 30.4, Mean Corpuscular Hemoglobin Concent 33.3, Red Cell Distribution Width 13.2, Calcium Level 7.9 L, Aspartate Amino Transf (AST/SGOT) 26, Alanine Aminotransferase (ALT/SGPT) 39, Alkaline Phosphatase 174 H, Total Bilirubin 0.6, Total Protein 5.9 L, Albumin 1.3 L Microbiology Microbiology 05/20/18 Blood Culture - Final, Complete NO GROWTH AFTER 5 DAYS 05/20/18 Blood Culture - Final, Complete NO GROWTH AFTER 5 DAYS 05/19/18 Blood Culture - Final, Complete NO GROWTH AFTER 5 DAYS 05/19/18 Blood Culture - Final, Complete NO GROWTH AFTER 5 DAYS GME ATTESTATION ATTENDING NOTE Family Medicine Attending Note: I was present on site to supervise Nisha Caicedo D.O. (OGME-3). We discussed the history and exam. I confirmed the castano elements during my [id number] encounter with the patient. We conferred on the assessment and plan; I agree with the note as documented. Mr. Stanley is still not making significant clinical improvement. We have consulted infectious disease to help evaluate his current regimen, because he does not seem to be getting substantially better with it. It may be the regimen we have chosen, or maybe his clinical scenario but I'd like another set of eyes to help us with this. (drafter seismograph) BERYL CAICEDO DO May 26, 2018 11:19 am Andriy Leslie MD May 28, 2018 12:35 am
[2018-05-26 12:00] VITALS: BP 134/60
[2018-05-26 16:00] VITALS: BP 140/63
--- NOTE | 2018-05-26 18:20 | REP ---
Clinical: Hydronephrosis. Technique: Real time shetty scale ultrasound examination using curved array transducer. Findings: Kidneys are normal in contour, size, echogenicity, and reniform shape with scattered renovascular calcifications suggested. No hydronephrosis, nephrolithiasis or renal mass lesion. No perinephric fluid collections are identified. Right kidney measures 9.9 x 6.3 x 5.4 cm. Left kidney measures 12.0 x 5.8 x 5.5 cm and includes 2.0 cm simple mid pole cyst. Little catheter identified in collapsed bladder. Impression: 1. Chronic age-related changes including asymmetric atrophy to the right kidney. 2 cm simple left renal cyst. No evidence for hydronephrosis. Electronically Signed by Mart Romeo MD 05/26/2018 06:12 P
[2018-05-26] MEDS: MEROPENEM INJ 1 GM in APPROPRIATE DILUENT 1 EA IV SCH (18:31)
[2018-05-26 18:35] LABS: HEMATOCRIT 19.9 % (42.0-52.0)
[2018-05-26 18:39] LABS: HEMOGLOBIN 6.7 g/dl (13.5-17.5)
[2018-05-26 19:05] LABS: C REACTIVE PROTEIN QUANTITATIV 27.1 MG/DL (0.00-0.30); MAGNESIUM LEVEL 2.4 MG/DL (1.8-2.4); VANCOMYCIN LEVEL TROUGH 19.6 UG/ML (10.0-20.0)
[2018-05-26 20:00] VITALS: BP 134/63
[2018-05-26] MEDS: VANCOMYCIN HCL 1,000 MG, VIAL MATE ADAPTER 1 EACH in D5W 250 ML IV SCH (20:24)
[2018-05-26] MEDS: ACETAMINOPHEN 325 MG/10.15 ML UDC GT PRN (22:08)
[2018-05-26 23:59] VITALS: BP 133/62
[2018-05-27] MEDS: MORPHINE 10 MG/ML 1ML VIAL (J2270) IV PRN ×3 (02:21→23:47)
[2018-05-27 04:00] VITALS: BP 134/64
[2018-05-27 05:01] LABS: HEMATOCRIT 24.5 % (42.0-52.0); HEMOGLOBIN 8.2 g/dl (13.5-17.5); MEAN CORPUSCULAR HEMOGLOBIN 30.4 pg (27.0-33.0); MEAN CORPUSCULAR HGB CONC 33.5 g/dl (32.0-36.5); MEAN CORPUSCULAR VOLUME 90.7 fl (80.0-96.0); PLATELET COUNT, AUTOMATED 329 10^3/uL (150-450); WHITE BLOOD COUNT 9.6 10^3/uL (4.0-10.0)
[2018-05-27 05:30] LABS: ATYPICAL LYMPH 1 % (0-5); EOSINOPHILS 1 % (0-5); LYMPHOCYTES 9 % (16-52); MONOCYTES 6 % (0-8); NEUTROPHILS 83 % (35-75); PLATELET ESTIMATE NORMAL (NORMAL)
[2018-05-27 05:31] LABS: POLYCHROMASIA 1+
[2018-05-27 06:00] LABS: ALBUMIN 1.3 GM/DL (3.2-5.2); BILIRUBIN,TOTAL 0.7 MG/DL (0.2-1.0); C REACTIVE PROTEIN QUANTITATIV 27.6 MG/DL (0.00-0.30); CALCIUM LEVEL 7.5 MG/DL (8.8-10.2); CREATININE FOR GFR 1.64 MG/DL (0.70-1.30); GLOMERULAR FILTRATION RATE 43.5 (>42); POTASSIUM SERUM 3.8 MEQ/L (3.5-5.1)
[2018-05-27] MEDS: HEPARIN SOD (PORCINE) 5000 UNITS/ML VIAL SQ SCH ×3 (06:12→21:42)
[2018-05-27] MEDS: SODIUM CHLORIDE 0.9% INJ 10 ML SYR IV SCH ×3 (06:13→21:42)
[2018-05-27] MEDS: MEROPENEM INJ 1 GM in APPROPRIATE DILUENT 1 EA IV SCH ×2 (06:13→18:10)
[2018-05-27] MEDS: IPRATROPIUM 0.5MG/ALBUTEROL 2.5MG INH SOL UD 3ML (DUONEB)(J7620) NEB SCH ×4 (07:11→20:50)
[2018-05-27] MEDS: NYSTATIN 500,000 U/5 ML SUSP UDC SS SCH ×4 (07:58→21:41)
[2018-05-27] MEDS: PANTOPRAZOLE 40MG INJ (PROTONIX) (C9113) IV SCH (07:59)
[2018-05-27] MEDS: SODIUM CHLORIDE 0.9% INJ 10 ML SYR IV PRN (07:59)
[2018-05-27 08:00] VITALS: BP 146/70
[2018-05-27 09:50] LABS: MAGNESIUM LEVEL 2.2 MG/DL (1.8-2.4)
--- NOTE | 2018-05-27 11:42 | CR ---
DATE OF CONSULTATION: 05/26/2018 Asked to consult by Dr. Leslie for evaluation of persistent fever and leukocytosis in a patient who had a small bowel obstruction and exploratory laparotomy. HISTORY OF PRESENT ILLNESS: Mr. Stanley is a pleasant 78-year-old gentleman who was brought in to the emergency room on 05/12/2018 with a small bowel obstruction. The patient has a history of ileostomy and had decreased output for about 3 days prior to admission with increased abdominal distention, crampy abdominal pain. The patient has a history of rectal cancer, status post colectomy and ileostomy in 1981 and has done very well since then. He reports prior history of bowel obstruction. The patient had a nasogastric (NG) tube placed on admission, but he did not improve and, therefore, was taken to the operating room by Dr. Ontiveros on 05/16/2018 where he had a laparotomy, lysis of adhesion, release of small bowel obstruction, and a left triple lumen subclavian line was placed. He developed a fever on 05/14/2018 and was started on intravenous (IV) Zosyn for aspiration pneumonitis, which he has received for the past 12 days. The patient had a CT angiogram on that day, which showed bibasilar infiltrate but no pulmonary embolism. He continued to have low-grade fevers postoperatively. On 05/20/2018, he had a persistent fever up to 105. White count was 16.1 and, therefore, IV vancomycin was added to Zosyn, and he is currently day #6. Yesterday, the patient was not doing well. He had increased abdominal distention, vomiting, and NG tube was replaced. He had a temperature was 102.1 48 hours ago, and his systolic blood pressure was down to 76/40. He is doing better today. He has no nausea. He has an NG tube in place. A Little catheter was placed also for urine output after he was found to be hypotensive. He denies any abdominal pain. His ileostomy has adequate output. He has a cough, which is productive mostly of whitish phlegm. He denies any headache or neck stiffness. 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 PAST SURGICAL HISTORY: Colostomy with ileostomy, left radical orchiectomy, left eyelid surgery. SOCIAL HISTORY: He lives with his [id number]. He quit smoking in 1971. He drinks socially. REVIEW OF SYSTEMS: He has vague abdominal pain. He vomited yesterday. NG tube was replaced. He has had fevers but no chills. He denies any headache, neck pain, arthralgias, back pain. No dysuria or hematuria. He has a Little catheter in place. Urine is dark but nonbloody. LABORATORIES: White count is 14.6 and yesterday was 17.6, hemoglobin 7.5, hematocrit 22.5, platelets 418. Sodium 137, potassium 4.2, chloride 99, bicarbonate 27, BUN 45, creatinine 1.9, glucose 130, calcium 7.9, magnesium 1.6, AST 26, ALT 39, alkaline phosphatase 174, total protein 5.9, albumin 1.3. PT 14.6, PTT 25.2 on 05/12/2018. Vancomycin trough was 32 on 05/25/2018, which is explained to the acute kidney injury. Arterial blood gas (ABG) on 05/21/2018: pH 7.5, pCO2 33, pO2 80, oxygen (O2) saturation 97%. Urinalysis was done on 05/21/2018. Had +2 blood, 10 red cells, +1 bacteria, 2 white cells. Blood cultures done on 05/12/2018 two sets, 05/19/2018 two sets, and 05/20/2018 two sets. All were negative. IMAGING: Chest x-ray shows worsening basilar infiltrate. NG tube is in the distal esophagus, and there is a left subclavian catheter. CT of the abdomen and pelvis shows no drainable abscess, dilated air and fluid-filled small bowel loops throughout the abdomen, esophageal and gastric distention, new hydronephrosis on the right side moderate in degree. On physical examination, he is a frail elderly gentleman in no acute distress. He is alert and oriented times three. He is able to give a very good history. Temperature is 98.2, pulse 103, respirations 20, blood pressure 140/63, O2 sat 97% on 2 liters nasal cannula. Oropharynx edentulous. Dry mucosa. He has scabs on his upper lip consistent with healing herpetic outbreak. Heart: Normal S1, S2, tachycardiac. No murmur is appreciated. Lungs: Diffuse extra rhonchi bilaterally with diminished breath sounds bilaterally at the bases. No wheezes, no crackles. Abdomen: Soft, mildly tender in the midumbilical area where abdias are in place. He has mild serosanguineous discharge from the midincision. He has a puncture site of heparin left lower quadrant profusely bleeding. Genitourinary (): Normal for age. He has a Little catheter draining dark urine. Extremities: No clubbing, cyanosis, or edema. No decubitus ulcers on heels or toes. Per nursing, there is no decubitus on his sacral area. MEDICATIONS: - vancomycin 1 gram IV every 24 hours, which was dropped from 1 gram IV every 12 hours - his last dose was on 05/25/2018 at 07:41 - albuterol/Atrovent nebulizers - Percocet as needed - Ketorolac 30 mg IV every 8 hours - The patient has acute kidney injury and has received 60 mg of IV Ketorolac 2 days in a row. IMPRESSION: 1. This is a 78-year-old gentleman who was admitted with a small bowel obstruction status post exploratory laparotomy on 05/16/2018 with lysis of adhesion, diagnosed with aspiration pneumonia on 05/14/2018, treated with 12 days of IV Zosyn and so far and 6 days of IV vancomycin. The patient had first recurrent fever and sepsis on 05/23/2018. He had a temperature of 102.9; and yesterday, his blood pressure was systolic of 70. Antibiotics have not been changed. The patient today seems better with IV fluids, but he has persistent cough. Possible sources of infection are multiple, including line infection. His subclavian line has been in since 05/16/2018 from resistant gram-negatives, gram positive vancomycin-resistant Enterococcus (VRE), fungal infection in the setting of intra-abdominal surgery should be ruled out. 2. Worsening aspiration pneumonia with again resistant pathogens. 3. Urinary tract infection. The patient has new moderate hydronephrosis on CT, which is a new finding on the right side and, therefore, concern would be right-sided kidney infection with pyelonephritis. PLAN: 1- Blood cultures two sets have been ordered for today. A urinalysis (UA), urine culture was ordered, as well. Consider removing central line and switching to peripheral IVs. The patient has appropriate peripheral veins that could be accessed. 2- Discontinue IV Zosyn. The patient has received 12 days and has had breakthrough fever in spite of Zosyn. Would suggest switching to meropenem for broader coverage. 3- If the patient has recurrent fever, consider adding IV fluconazole to cover for candidal infection, as he is at risk of fungemia from his central line, consider removing the central line as soon as possible. 4- Also, the patient has developed acute kidney injury from vancomycin toxicity and Ketorolac needs to be discontinued until his creatinine improves. MTDD
[2018-05-27 12:00] VITALS: BP 138/72
--- NOTE | 2018-05-27 14:32 | IPNPDOC ---
Subjective Date Seen The patient was seen on 05/27/18. Subjective Chief Complaint/HPI Patient seen and examined at bedside. Is feeling very weak and tired. Asking when he can eat. States he just wants to get better. Denies fevers, chills, SOB, abdominal pain. Constitutional: Denies: Chills, Fever Eyes: Denies: Vision change ENT: Denies: Head Aches Skin: Denies: Rash Pulmonary: Reports: Cough; Denies: Dyspnea Cardiovascular: Denies: Chest Pain Gastrointestinal: Denies: Nausea, Vomiting, Abdominal Pain, Diarrhea, Constipation Genitourinary: Denies: Dysuria Hematologic: Denies: Bruising Endocrine: Denies: Heat Intolerance, Cold Intolerance Musculoskeletal: Denies: Joint Pain, Muscle Pain Neurological: Reports: Weakness (increased from prior (generalized)); Denies: Confusion Psych: Denies: Mood Normal (a bit down) Objective Physical Examination General Exam: Positive: Alert, Cooperative, Mild Distress (Still with labored breathing noted today similar to yesterday), Other (Frail elderly caucasain M lying in bed comfortably. Is tachypneic as usual using accessory muscles in neck (SCMs); looks a bit weaker and voice is very soft when speaking) Eye Exam: Positive: Conjunctiva & lids normal ENT Exam: Positive: Atraumatic Neck Exam: Positive: Supple Chest Exam: Positive: Rhonchi (scattered in upper lung dong), Diminished (in bilateral bases. ); Negative: Rales, Wheezing Heart Exam: Positive: Rate Normal, Regular Rhythm, Normal S1, Normal S2; Negative: Murmurs Telemetry: Positive: Sinus, Tachycardia, Other Telemetry: (Sinus Tachycardia with HR at 151 around 20:45 and otherwise Sinus Tachycaria with HR 100s-105) Abdomen Exam: Positive: Normal bowel sounds, Soft, Tenderness ((+)moderate tenderness to palpation of RUQ and RLQ and mid-abdominal region. Abdomen less distended today. Abdominal bandage at incisonal site not stained.), Other (ileostomy site with output still; bandage without stains today.) Extremity Exam: Negative: Edema Skin Exam: Positive: Nl turgor and temperature; Negative: Rash Neuro Exam: Positive: Normal Speech Psych Exam: Positive: Mental status NL, Oriented x 3; Negative: Mood NL (seems a bit down with flat affect today) Assessment /Plan Problems (1) Status post exploratory laparotomy Status: Acute Response to Treatment: Stable Problem Text: 05/27: Post-op day #11. Abdominal exam similar to yesterday. annealing furnace tender to palpation of RUQ and RLQ with mid-abdominal tenderness. Continue PT. Continue pain control, which seems controlled this AM. 05/26: Post-op day #10. Abdomen less distended today and patient reports less bloating and abdominal pain today subjectively. However, slide forming machine tender to palpation of RUQ and RLQ as well as mid-abdominal region. Patient, still has ileus and I have encouraged PT to work with patient to continue to help him. Pain control as per General Surgery. I see that they have added toradol to current pain regimen. Pain seems to be controlled enough today. 05/25: Post-op day #9. NG tube has been placed back by Dr. Ontiveros. Still has output in ileostomy. According to CT scan of chest/abdomen/pelvis, it seems patient still has ileus and is unable to get rid of the fluid in his abdomen and bladder. Have ordered nursing to place santacruz back in to help relieve fluid from pelvic region/ tract. Likely recovery will be a very slow course and ileus will take longer time to reverse. Still encourage working with PT to help with ileus. Continue management as per General Surgery. Pain control as per General Surgery. 05/24/18: Post-op day #8. Patient is tolerating full liquid diet. Good output in his ileostomy. General surgery still following. He continues to work with PT 05/23: Post-op day #7. NG tube was discontinued today. Is still having good ileostomy output and is still on TPN. Abdomen appropriately slightly tender to palpation in mid-abdominal region today at incisional site. Still with hypoactive bowel sounds. 05/22: Post-op day #6. Management as per General Surgery. Still on TPN and has NG tube that is still having output. Ileostomy output is still good. Abdomen nontender to palpation today, but still with hypoactive bowel sounds. Will reorder PT/OT today. 05/20: Is post-operative day #4. Still on TPN with K and Mg replacement as per General Surgery. Has increased output from ileostomy site now which has improved. Abdomen still distended but not as tender to palpation--improving. Still hypoactive bowel sounds on auscultation. 05/19 - per surgery On TPN 05/18: Post-operative day #2. Patient on TPN. Minimal output from ileostomy site. Will likely have prolonged course of ileus. Still diffusely tender to palpation of abdomen, but is appropriate and soft. Important to rule out postoperative fever as patient has been having fevers with Tmax of 101.2 yesterday at noontime. Consider UA. CXR from today showed: There is pleuroparenchymal opacity again noted in the left base obscuring the left hemidiaphragm as before. There is slight haziness in the right base which may reflect a small amount of right pleural fluid. Will watch for signs of pneumonia. Currently on day 5 of zosyn. 05/17: Patient is status-post exploratory laparotomy, lysis of adhesions, repair of enterotomy and serosal tears, release of bowel obstruction post-op day #1. Apparently, surgery took around 7 hours and patient is in need of ventilator support at this time post-surgery. General surgery is following and managing the SBO and Theology Professor is consulted to help further manage respiratory support. (2) SBO (small bowel obstruction) Status: Acute Response to Treatment: Improving Problem Text: 05/27: Post-op day #11: Continue to encourage PT. OT and ARU consult ordered yesterday. Management as per General Surgery: continue NG tube decompression. Keep NPO for now. Need to confirm whether patient needs TPN ordered now however for nutritional support. 05/26: Post-op day #10: Management as per General Surgery. Still suffering from ileus as per yesterday's CT abd/pelvis scan. Have encouraged PT to work with patient more to help with ileus. Have also ordered OT and ARU consult as patient was able to do well with PT yesterday. Please see HPI for details. 05/25: Post-op day #9: Management as per General Surgery. 05/24/18: Post-op day #8. Management per General surgery 05/23: Post-Op day #7. Management as per General Surgery. Have encouraged PT/OT and ordered this yesterday so that it can help with patient's post-op ileus. 05/22: Post-Op day #6. Management as per General Surgery. 05/20: Management as per General Surgery, now Dr. Lloyd Valente. Patient is post- op day #4. Spoke briefly to Dr. Valente who states that NG tube will not be removed today. Patient is still having a moderate amount of NG tube output, and it will still take some more time to decompress bowel. 05/18: Dr. Ontiveros of general surgery following and managing. Post-op day #2. 05/17: Status-post exp laparotomy, lysis of adhesions, and release of bowel obstruction post-operative day 1. Is on epidural fentanyl for post-operative pain control. TPN will be started by Dr. Ontiveros today and there is anticipated prolonged course of ileus until return of normal bowel function. This problem is being managed by Dr. Ontiveros of surgery. He seems to be making some improvement with the NG tube drainage, but is still pretty uncomfortable. Will defer to surgery for further management of this problem. (3) Aspiration pneumonitis Status: Acute Problem Text: 05/27: Zosyn d/ce'd yesterday. Added meropenem 1 gm q12h IV and is day #2 of [address] as per Dr. Wilkins's recommendations from ID. Day #7 of Vancomycin. WBC encouragingly has trended back down to normal at 9.6. However, patient did spike a temperature of 100.5 at 23:59 last night. Will continue to monitor labs and clinically. Dr. Wilkins has ordered UA (patient has santacruz cat heter), new blood cx x 2, and gram stain & sputum cx yesterday. UA was unremarkable. Blood cx are pending x 2. Sputum cx and gram stain show many WBCs, few epithelial cells, moderate gram (-) rods, and few gram (+) cocci in chains. CXR performed yesterday showed bibasilar pleuroparenchymal opacities. 05/26: Day #13 Zosyn and Day #6 of Vancomycin. WBC encouragingly is trending down and was down to 14.6 today. Will consult ID for any possible further recommendations for Dr. Wilkins. Has remained afebrile. 05/25: Day #12 Zosyn and Day #5 of Vancomycin. WBC is unfortunately trending up and up to 17.6 today. Suspect that patient has another source of infection other than abdominal abscess that may not be clear to us right now. Will consider ID consult with Dr. Wilkins if WBC goes up tomorrow. Afebrile all throughout 05/24/18 as well. 05/24/18: Remains on Zosyn (started on 05/14/18) and on Vancomycin (started on 05/21/19). WBC 11.2, T-max of 102.9 at 23:59 on 05/23/18. BC remain negative after 72 hours. Reports continued cough with sputum production. I will discuss with attending about repeat Chest x-ray and/or sputum culture 05/23: Day #10 of Zosyn and Day #3 of Vancomycin. WBC trending down to 10.5. Tmax was 100.7 at midnight last night. Currently, patient has been afebrile since. 05/22: Post-operative fevers likely secondary to aspiration pneumonia vs. multifocal pneumonia (HCAP). Day #9 of Zosyn and was begun on Vancomycin yesterday for more broad spectrum coverage. WBC trending down to 12.2. Tmax was 100.1 at midnight. Has been afebrile since. CT chest on 05/20 had shown linda ateral lower lobe consolidation and atelectasis, persistent R middle lobe multifactorial patchy densities, new mild patchy ground glass opacities within both upper lobes, diffuse infiltrates and small pleural effusions. 05/20: Day #7 Zosyn. WBC trending down from 16.1 to 11.8. Patient has been afe brile since 2 PM yesterday and satting in the 90s on room air. CXR today shows no significant change, bibasilar opacities and cardiomegaly status-quo. Blood cx show NGTD x 24 hours. 05/19 D#6 Zosyn. WBC up slightly B/C and f/u CXR pending - ordered by pulmonary Resp status improve - extubated on NC 05/18: Day #5 of zosyn. CXR was similar to prior. Please see under assessment #1. Continue to monitor clinically. 05/17: Likely secondary from reflux of gastric contents/secretions from NG tube. Continue zosyn. Day #4. (4) Hypomagnesemia Status: Acute Problem Text: 05/27: Mg level WNL at 2.2. 05/26: Mg level was low at 1.6 today. Have replaced with Mg Sulfate Runs x 2. Will recheck Mg level at 1700. (5) Acute respiratory failure with hypoxia Status: Resolved Response to Treatment: Stable Problem Text: 05/27: O2 saturation is 99% on 2L NC. May be able to wean down to 1L via NC today. Will plan on placing nursing order for this. 05/26: O2 saturation has remained in the low 90s at 2L NC. Will consider increasing O2 to 3 L. Will discuss with attending physician for need for this. Patient does not seem to have a prior hx of COPD however. 05/25: Stable O2 saturations in the 90s on 2L NC. 05/24/18: Remains on O2 vial nasal cannula to maintain saturations of >90% 05/23: Patient's O2 saturation was 93% on 2L nasal cannula. Have instructed staff to titrate patient's O2 above 90%, but not too high so as to avoid oxygen toxicity. Patient is still having net negative diuresis of 2.831 liters yesterday and -1.4 liters today. Is having good urine output: 1.99 mL/kg/hr. Weight is down from 67.9 kg to 66.4 kg today. Still on lasix 40 mg q6h IV. His lungs sound much clearer to me today. I believe his respiratory status has clinically improved from prior. Will continue santacruz for now to monitor net negative diuresis until this is complete. Also has epidural for pain control. 05/22: Hypoxia secondary to pulmonary edema secondary to diastolic CHF/volume overload. Patient had net negative diuresis of at least 2 liters yesterday. His O2 saturation has improved and he is requiring less oxygen than 2 days ago. He is now on 2 liters O2 via nasal cannula from 6 liters previously. 05/20: Improved. Is satting in the 90s on room air without significant work of breathing. Is in NAD. Still mildly tachypneic with RR in the low 20s. 05/19 - successfully tolerated extubation - on NC today - Per Pulmonary 05/18: Trial of weaning off ventilator was not predictive of success for extubation. Dr. Hays will be performing another trial today. 05/17: Patient went into acute hypoxic respiratory failure status-post surgery yesterday. Remained intubated and was placed on mechanical ventilation. Dr. Hays will be trying to wean patient to assess weather his SBI will go to <104 and if patient can take deep and slow breaths which would indicate success if patient were to be extubated. She will determine this today. He may be able to be extubated either today or tomorrow. (6) Low hemoglobin Status: Acute Problem Text: 05/27: Hgb dropped down to 6.7* yesterday at 18:25 unfortunately. Patient had to be transfused 2 units PRBCs and Hgb this AM was 8.2. Will recheck H&H next at 1643. Will transfuse as necessary. Continue to monitor H&H PRN and CBC daily. Drop in Hgb etiology not identified as of yet. DDx includes gastric ulcer, intraabdominal process post-surgically, GI bleed somewhere else, PUD, vs. heparin anticoagulation patient is on etc. 05/26: Hgb unfortunately dropped down to 7.5 today from 9.2 yesterday which is a drastic drop. I have ordered a repeat H&H at 1700 today. 05/25: Hgb was 9.2 today which is encouraging. Continue to monitor CBC. 05/24/18: Hgb 8.1 today. We will continue to monitor 05/23: Patient's Hgb last night was 7.9 and did not drop below 7.9 from yesterday AM. This morning, Hgb was 8.4. It is thus stable. We will continue to monitor his CBC and hold off on transfusion for now. 05/22: Patient's Hgb dropped down to 7.9. Will need to keep an eye on this and will recheck CBC in 12 hours from the one performed earlier today: at 1722. Nursing to call provider if repeat CBC shows Hgb <7.7. (7) Acute kidney injury Status: Resolved Problem Text: 05/27: Renal fx improving. BUN 46 (H) and Cr has trended down to 1.64 (H) today from 1.91 (H) yesterday. Vanc trough level today was WNL at 19.6. 05/26: BUN and Cr unfortunately have trended up and were 45 and 1.91 respectively from 23 and 1.91 yesterday. I suspect this may have to do with possible supratherapeutic dose of vancomycin as the vanc trough level was elevated today at 32.1. Will speak to attending physician and possibly talk to pharmacy regarding adjusting dose for renally dosing the vanco. 05/25: BUN 23 and Cr 1.06. Kidney fx stable. GFR >60. Continue to monitor. 05/24/18:BUN/Cre 22/1.09, GFR > 60, remains stable 05/23: Cr 1.18 and stable. Continue monitoring via BMP. On lasix for diuresis. 05/22: Creatinine stable. Monitor renal fx due to risk of kidney injury from diuresis with lasix. 05/20: Creatinine continuing to improve and is down to 1.13 from 1.25 yesterday. 05/19 - Crea continues to improve. Na+ 151, K+ low this am Surgery managing IVF and electrolyte replacement 05/18: Cr improved today to 1.52 from 1.60 yesterday. Continue to monitor BMP. Is getting IV hydration and TPN which is a concern for 3rd spacing of fluid. Does have trace edema in bilateral lower extremities. Dr. Hays was recommending to try some lasix. 05/17: Creatinine bumped up to 1.60 today with GFR lower at 44.7 from yesterday and is likely from severe dehydration from bowel obstruction. Will continue to monitor BMP and continue IV hydration as necessary. His BUN is down a little, but his creatinine is up. Overall his GFR is down a little more today. Will continue the IV hydration and monitor. I believe that he was significantly dehydrated by the time he was admitted. (8) Hypertension Status: Chronic Response to Treatment: Stable Problem Specific Plan: Monitor Clinically Problem Text: 05/27: BP well controlled. No other episodes of hypotension noted yesterday. Continue to monitor. Lactated Ringer's IVF still running @ 50 mLs/hr. 05/26: BP well controlled today at 132/96. However, I was concerned patient might have been developing some signs of sepsis yesterday as I did notice upon review of VS from yesterday, patient became hypotensive at one point to 76/40 at 12 PM, 98/44 at 13:05, 101/58 at 15:01, and 103/54 at 1600. Today, BP was 132/96 and is much improved. Patient also has become tachycardic since yesterday with HR's running from 101-110. Has also remained tachypneic with RR running into 20s-25. Will continue to monitor. Is receiving lactated ringer's IVF 1000 mL @ 50 mLs/hr. 05/25: Well controlled. Continue to monitor. 05/24/18: Remains well controlled 05/23: Stable and controlled. 05/22: Stable and controlled. BP was 124/60 today. 05/20: Stable and controlled. BP 140/69 today. 05/18: stable and controlled. Not on any antihypertensives. 05/17: BP well controlled without any antihypertensives. At this time, will hold any antihypertensives. His BP is well controlled at this time. Continue current regimen. Plan/VTE VTE Prophylaxis Ordered?: Yes (SQ heparin. TEDs and Sequentials.) Plan/Urinary Catheter Urinary Catheter: D/C Santacruz Reason for insertion/continuin: Critical Pt monitoring Plan IVF: Decrease VS, I&O, 24H, Fishbone Vital Signs/I&O Vital Signs Date Time Temp Pulse Resp B/P (MAP) Pulse Ox O2 Delivery O2 Flow Rate FiO2 05/27/18 12:00 98.0 84 20 138/72 (94) 97 Nasal Cannula 2.0 I&O- Last 24 Hours up to 6 AM 05/27/18 06:00 Intake Total 1000 ml Output Total 2100 ml Balance -1100 ml Laboratory Data 24H LABS Laboratory Tests 2 05/26/18 17:10: Urine Color YELLOW, Urine Appearance CLOUDYH, Urine pH 5.0, Urine Specific [place] 1.021, Urine Protein 1+H, Urine Glucose (UA) NEGATIVE, Urine Ketones NEGATIVE, Urine Blood 1+H, Urine Nitrite NEGATIVE, Urine Bilirubin NEGATIVE, Urine Urobilinogen 0.2, Urine Leukocyte Esterase NEGATIVE, Urine WBC (Auto) 0, Urine RBC (Auto) 0, Urine Hyaline Casts (Auto) 0, Urine Bacteria (Auto) NEGATIVE, Urine Squamous Epithelial Cells 0, Urine Amorphous Sediment MODERATEH, Urine Mucus (Auto) SMALL, Urine Sperm (Auto) 05/26/18 18:25: Magnesium Level 2.4, C-Reactive Protein, Quantitative 27.10H, Vancomycin Level Trough 19.6 05/27/18 04:43: Magnesium Level 2.2, C-Reactive Protein, Quantitative 27.60H, Nucleated Red Blood Cells % (auto) 0.2H, Neutrophils 83H, Lymphocytes (Manual) 9L, Monocytes (Manual) 6, Eosinophils (Manual) 1, Atypical Lymphocytes 1, Platelet Estimate NORMAL, Polychromasia 1+, Basophilic Stippling 1+, Anion Gap 8, Glomerular Filtration Rate 43.5, Blood Urea Nitrogen 46H, Creatinine 1.64H, Sodium Level 140, Potassium Level 3.8, Chloride Level 104, Carbon Dioxide Level 28, Calcium Level 7.5L, Aspartate Amino Transf (AST/SGOT) 21, Alanine Aminotransferase (ALT/SGPT) 26, Alkaline Phosphatase 151H, Total Bilirubin 0.7, Total Protein 5.0L, Albumin 1.3L, Albumin/Globulin Ratio 0.35L CBC/BMP Laboratory Tests 05/26/18 18:25 05/27/18 04:43 Red Blood Count 2.70 L, Mean Corpuscular Volume 90.7, Mean Corpuscular Hemoglobin 30.4, Mean Corpuscular Hemoglobin Concent 33.5, Red Cell Distribution Width 13.7, Calcium Level 7.5 L, Aspartate Amino Transf (AST/SGOT) 21, Alanine Aminotransferase (ALT/SGPT) 26, Alkaline Phosphatase 151 H, Total Bilirubin 0.7, Total Protein 5.0 L, Albumin 1.3 L Microbiology Microbiology 05/26/18 Blood Culture, Received Pending 05/26/18 Blood Culture, Received Pending 05/20/18 Blood Culture - Final, Complete NO GROWTH AFTER 5 DAYS 05/20/18 Blood Culture - Final, Complete NO GROWTH AFTER 5 DAYS 05/19/18 Blood Culture - Final, Complete NO GROWTH AFTER 5 DAYS 05/19/18 Blood Culture - Final, Complete NO GROWTH AFTER 5 DAYS 05/26/18 Gram Stain - Final, Resulted 05/26/18 Sputum Culture, Resulted Pending E ATTESTATION ATTENDING NOTE Family Medicine Attending Note: I was present on site to supervise Nisha Caicedo D.O. (OGME-3). We discussed the history and exam. I confirmed the castano elements during my [id number] encounter with the patient. We conferred on the assessment and plan; I agree with the note as documented. Yesterday, Dr. Wilkins changed his antibiotics from Zosyn to meropenem because of the Zosyn clearly wasn't working. She is also ordered repeat blood cultures on the theory if something grows, despite him being on Zosyn, then we should find out what that bug is and what it is susceptible. Thus far they are negative x 24h. He did lose quite a bit of blood in the last ~48h and required a transfusion. At the same time he reports that he is getting a darker material from his iliostomy. This development is concerning from my perspective. (phlebotomy program coordinator) BERYL CAICEDO DO May 27, 2018 2:21 pm Andriy Leslie MD May 28, 2018 12:43 am
[2018-05-27 16:00] VITALS: BP 151/71
[2018-05-27] MEDS: PERCOCET 5MG/325MG TAB PO PRN (16:22)
[2018-05-27 16:56] LABS: HEMATOCRIT 28.7 % (42.0-52.0); HEMOGLOBIN 9.4 g/dl (13.5-17.5)
[2018-05-27] MEDS: LR 1,000 ML IV SCH (18:10)
[2018-05-27 20:00] VITALS: BP 160/76
[2018-05-27] MEDS: VANCOMYCIN HCL 1,000 MG, VIAL MATE ADAPTER 1 EACH in D5W 250 ML IV SCH (21:41)
[2018-05-28] VITALS: BP 152/74
[2018-05-28 04:00] VITALS: BP 170/83
[2018-05-28 05:35] LABS: BASO % 0.3 % (0.0-1.0); EOS # 0.1 10^3/uL (0.0-0.50); EOS % 1.1 % (0.0-3.0); HEMATOCRIT 27.5 % (42.0-52.0); HEMOGLOBIN 9.1 g/dl (13.5-17.5); LYMPH # 0.9 10^3/uL (1.5-4.5); LYMPH % 12.1 % (24.0-44.0); MEAN CORPUSCULAR HEMOGLOBIN 30.2 pg (27.0-33.0); MEAN CORPUSCULAR HGB CONC 33.1 g/dl (32.0-36.5); MEAN CORPUSCULAR VOLUME 91.4 fl (80.0-96.0); MONO # 0.6 10^3/uL (0.0-0.8); MONO % 7.7 % (0.0-5.0); NEUTROPHILS # 5.8 10^3/uL (1.8-7.7); NEUTROPHILS % 76.1 % (36.0-66.0); PLATELET COUNT, AUTOMATED 364 10^3/uL (150-450); RED BLOOD COUNT 3.01 10^6/uL (4.30-6.10); WHITE BLOOD COUNT 7.5 10^3/uL (4.0-10.0)
[2018-05-28 06:02] LABS: BLOOD UREA NITROGEN 30 MG/DL (7-18); CALCIUM LEVEL 8.3 MG/DL (8.8-10.2); CARBON DIOXIDE LEVEL 29 MEQ/L (21-32); CHLORIDE LEVEL 109 MEQ/L (98-107); CREATININE FOR GFR 1.23 MG/DL (0.70-1.30); GLOMERULAR FILTRATION RATE > 60.0 (>42); GLUCOSE, FASTING 82 MG/DL (70-100); POTASSIUM SERUM 3.3 MEQ/L (3.5-5.1); SODIUM LEVEL 146 MEQ/L (136-145)
[2018-05-28] MEDS: MEROPENEM INJ 1 GM in APPROPRIATE DILUENT 1 EA IV SCH ×2 (06:28→17:37)
[2018-05-28] MEDS: HEPARIN SOD (PORCINE) 5000 UNITS/ML VIAL SQ SCH ×3 (06:40→21:54)
[2018-05-28] MEDS: SODIUM CHLORIDE 0.9% INJ 10 ML SYR IV SCH (06:41)
[2018-05-28] MEDS: MORPHINE 10 MG/ML 1ML VIAL (J2270) IV PRN (06:41)
[2018-05-28] MEDS: IPRATROPIUM 0.5MG/ALBUTEROL 2.5MG INH SOL UD 3ML (DUONEB)(J7620) NEB SCH ×4 (07:10→20:20)
[2018-05-28 07:43] VITALS: BP 159/77
[2018-05-28] MEDS: NYSTATIN 500,000 U/5 ML SUSP UDC SS SCH ×4 (08:12→20:36)
[2018-05-28] MEDS: PANTOPRAZOLE 40MG INJ (PROTONIX) (C9113) IV SCH (08:12)
--- NOTE | 2018-05-28 10:56 | IPN ---
DATE: 05/27/2018 HISTORY: The patient is a 78-year-old man who had undergone exploratory laparotomy for a small bowel obstruction back on May. He had extensive adhesions because of a past history of a total abdominal colectomy. He was making acceptable progress postoperatively but developed some recurrent abdominal distension, worrisome for a recurrent obstruction. He has also had a persistently elevated white blood cell count. Vital signs show that he has been afebrile save for a Maximum temperature (T-max) of 100.5, right near midnight last night. His pulse has ranged from the 80s to the low 100s. Blood pressure is good and his oxygen saturation is excellent on nasal cannula oxygen. Intake and output yesterday 1700 in with 2150 out with 200 from his ileostomy and 500 of nasogastric (NG) drainage. PHYSICAL EXAMINATION: The patient is an elderly man lying quietly on the hospital bed. He is alert and responsive. He shook my hand when I introduced myself. He has a nasogastric tube in place which is putting out only a minimal amount of what looks like saliva. The abdomen is generally flat. He does have some bowel sounds present. There is some stool in his ileostomy in the right lower quadrant. There is a small amount of drainage from his midline incision. He has a triple lumen catheter in the left subclavian site. IMPRESSION: The patient is now 11 days postop from his surgery. He is having some bowel function with output through his ileostomy. His NG tube is having less output today than it had yesterday. PLAN: We will continue his NG tube for today. I will reassess his wound tomorrow regarding the small amount of drainage. He will remain on his current antibiotics. We will need to consider whether to resume total parenteral nutrition (TPN) or whether we might be able to begin a diet soon. I did discuss the patient with Dr. Leslie earlier today about the possibility of removing the central line.
[2018-05-28] MEDS: PERCOCET 5MG/325MG TAB PO PRN ×2 (11:55→16:56)
[2018-05-28 12:00] VITALS: BP 162/80
--- NOTE | 2018-05-28 14:18 | REP ---
Clinical: Follow up small bowel obstruction. Technique: Single supine view of the abdomen and pelvis. Findings: Air-filled distended loops of bowel noted throughout the abdomen and pelvis consistent with continued small bowel obstruction. Impression: The gas pattern suggests continued small bowel obstruction. Electronically Signed by Mart Romeo MD 05/28/2018 02:10 P
[2018-05-28] MEDS: ALVIMOPAN 12 MG CAPSULE (ENTEREG) PO SCH ×2 (14:47→20:36)
[2018-05-28] MEDS: LR 1,000 ML IV SCH (14:47)
[2018-05-28 16:00] VITALS: BP 165/76
[2018-05-28] MEDS: amLODIPine 5 MG TAB PO SCH (16:56)
--- NOTE | 2018-05-28 19:45 | PHACANCOPD ---
PHARMACY VANCOMYCIN DOSING Pt Demographics Demographics Patient Age:78 , Weight:67.800 , Gender: male Adjusted Body Weight Date: 05/21/18, Adjusted Body Weight: [71.2] Kg(actual wt) Events Past 24 Hours Events Past 24 Hours: NO: Dialysis, Diuretic Therapy, Change in CrCl, Fever, Elevation in WBC, Pending Diagnostics, Pending Procedures, Other Vancomycin Vancomycin indication: pneumonia Vancomycin Target Ranges: 10-20 mcg/ml Vancomycin Load Y/N: No Load Dose Date Time Vancomycin Load Dose: Date: Time: Vancomycin Dose Date: 05/28/18. Current Vancomycin Dose: [1 gm iv q24h] Intermittent Dosing?: No Labs Labs Item Value Date Time White Blood Count 7.5 10^3/uL 05/28/18 0506 Creatinine 1.23 MG/DL 05/28/18 0506 Glomerular Filtration Rate > 60.0 05/28/18 0506 Blood Urea Nitrogen 30 MG/DL H 05/28/18 0506 Vancomycin Level Trough 14.2 UG/ML 05/28/18 1905 Vital Signs Label Value Date Time Patient Temperature 98.5 degrees F 05/28/18 1600 Temperature Source Temporal 05/28/18 1600 Micro Microbiology 05/26/18 Blood Culture - Preliminary, Resulted No Growth after 48 hours. All Specime... 05/26/18 Blood Culture - Preliminary, Resulted No Growth after 48 hours. All Specime... 05/20/18 Blood Culture - Final, Complete NO GROWTH AFTER 5 DAYS 05/20/18 Blood Culture - Final, Complete NO GROWTH AFTER 5 DAYS 05/19/18 Blood Culture - Final, Complete NO GROWTH AFTER 5 DAYS 05/19/18 Blood Culture - Final, Complete NO GROWTH AFTER 5 DAYS 05/26/18 Gram Stain - Final, Complete 05/26/18 Sputum Culture - Final, Complete Klebsiella Pneumoniae 05/28/18 Catheter Tip Culture, Received Pending Creatinine Clearance Date:05/21/18. Creatinine Clearance: [57.3]calculated. Assessment and Plan Maintaining Current Dose?: Yes Reason for dose change: No Dose Change Pharmacist Note Pharmacist Note Date: 05/28/18. Pharmacist note:Trough of 14.2 is within target range. Will continue current dosing. Will continue to monitor and make adjustments as needed. ELBA [facility]UAYO [facility] May 28, 2018 19:45
[2018-05-28 20:00] VITALS: BP 162/76
[2018-05-28] MEDS: VANCOMYCIN HCL 1,000 MG, VIAL MATE ADAPTER 1 EACH in D5W 250 ML IV SCH (20:36)
[2018-05-28] MEDS: MORPHINE 4 MG/ML 1ML VIAL/SYRINGE (J2270) IV PRN (20:44)
[2018-05-29] VITALS (7 sets, daily range): BP systolic 140–177; BP diastolic 67–81
[2018-05-29] MEDS: MORPHINE 4 MG/ML 1ML VIAL/SYRINGE (J2270) IV PRN ×3 (00:02→05:04)
--- NOTE | 2018-05-29 01:47 | IPNPDOC ---
Subjective Date Seen The patient was seen on 05/28/18. Subjective Chief Complaint/HPI Eros is feeling a little better today. He was able to have his NG tube removed (again). He is hungry, but is committed to advancing slowly so he doesn't have to start from the beginning again. He reports that his breathing is good and he doesn't really have any complaints. He just wants to get well. General: Denies: Normal Appetite (not normal, but improving) Constitutional: Denies: Chills, Fever Pulmonary: Denies: Cough Cardiovascular: Denies: Chest Pain, Palpitations Hematologic: Denies: Bruising, Bleeding Excessively Psych: Reports: Mood Normal Objective Physical Examination General Exam: Positive: Alert, Cooperative, No Acute Distress, Other (His voice is very soft when speaking, probably from irritation related to the NG tube.) Eye Exam: Positive: Conjunctiva & lids normal; Negative: Sclera icteric ENT Exam: Positive: Atraumatic, Mucous membr. moist/pink (He does have an abrasion of bruise he reports is from the NG tube. 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 ); Negative: Wheezing Heart Exam: Positive: Rate Normal, Regular Rhythm, Normal S1, Normal S2; Negative: Murmurs Telemetry: Positive: Sinus Abdomen Exam: Positive: Normal bowel sounds, Soft, Tenderness (Still tenderness to palpation of RUQ and RLQ and mid-abdominal region. Abdomen less distended today. Abdominal bandage at incisonal site not stained.), Other (ileostomy site with output still; bandage without stains today.) Extremity Exam: Negative: Edema Skin Exam: Positive: Nl turgor and temperature; Negative: Rash Neuro Exam: Positive: Normal Speech Psych Exam: Positive: Mood NL (his affect is getting flatter the longer he stays with us, but he realizes that this may be needed.), Oriented x 3 Assessment /Plan Problems (1) Status post exploratory laparotomy Status: Acute Response to Treatment: Stable Problem Text: 05/28: Post-op day #12. Abdominal exam similar to yesterday, slightly more bowel sounds noticed. drawing box tender to palpation of RUQ and RLQ with mid-abdominal tenderness. Continue PT. Surgery is managing the pain control. 05/27: Post-op day #11. Abdominal exam similar to yesterday. drawing box tender to palpation of RUQ and RLQ with mid-abdominal tenderness. Continue PT. Continue pain control, which seems controlled this AM. 05/26: Post-op day #10. Abdomen less distended today and patient reports less bloating and abdominal pain today subjectively. 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 Patient, still has ileus and I have encouraged PT to work with patient to continue to help him. Pain control as per General Surgery. I see that they have added toradol to current pain regimen. Pain seems to be controlled enough today. 05/25: Post-op day #9. NG tube has been placed back by Dr. Ontiveros. Still has output in ileostomy. According to CT scan of chest/abdomen/pelvis, it seems patient still has ileus and is unable to get rid of the fluid in his abdomen and bladder. Have ordered nursing to place santacruz back in to help relieve fluid from pelvic region/ tract. Likely recovery will be a very slow course and ileus will take longer time to reverse. Still encourage working with PT to help with ileus. Continue management as per General Surgery. Pain control as per General Surgery. 05/24/18: Post-op day #8. Patient is tolerating full liquid diet. Good output in his ileostomy. General surgery still following. He continues to work with PT 05/23: Post-op day #7. NG tube was discontinued today. Is still having good ileo stomy output and is still on TPN. Abdomen appropriately slightly tender to palpation in mid-abdominal region today at incisional site. Still with hypoactive bowel sounds. 05/22: Post-op day #6. Management as per General Surgery. Still on TPN and has NG tube that is still having output. Ileostomy output is still good. Abdomen nontender to palpation today, but still with hypoactive bowel sounds. Will reorder PT/OT today. 05/20: Is post-operative day #4. Still on TPN with K and Mg replacement as per General Surgery. Has increased output from ileostomy site now which has improved. Abdomen still distended but not as tender to palpation--improving. Still hypoactive bowel sounds on auscultation. 05/19 - per surgery On TPN 05/18: Post-operative day #2. Patient on TPN. Minimal output from ileostomy site. Will likely have prolonged course of ileus. Still diffusely tender to palpation of abdomen, but is appropriate and soft. Important to rule out postoperative fever as patient has been having fevers with Tmax of 101.2 yesterday at noontime. Consider UA. CXR from today showed: There is pleuroparenchymal opacity again noted in the left base obscuring the left hem idiaphragm as before. There is slight haziness in the right base which may reflect a small amount of right pleural fluid. Will watch for signs of pneumonia. Currently on day 5 of zosyn. 05/17: Patient is status-post exploratory laparotomy, lysis of adhesions, repair of enterotomy and serosal tears, release of bowel obstruction post-op day #1. Apparently, surgery took around 7 hours and patient is in need of ventilator support at this time post-surgery. General surgery is following and managing the SBO and Flange Turner is consulted to help further manage respiratory support. (2) SBO (small bowel obstruction) Status: Acute Response to Treatment: Improving Problem Text: 05/28: POD #12. He was able to go without an NG tube today, and tried a few small things, but found out that drinking soda still is probably not a good idea. 05/27: Post-op day #11: Continue to encourage PT. OT and ARU consult ordered yesterday. Management as per General Surgery: continue NG tube decompression. Keep NPO for now. Need to confirm whether patient needs TPN ordered now however for nutritional support. 05/26: Post-op day #10: Management as per General Surgery. Still suffering from ileus as per yesterday's CT abd/pelvis scan. Have encouraged PT to work with patient more to help with ileus. Have also ordered OT and ARU consult as patient was able to do well with PT yesterday. Please see HPI for details. 05/25: Post-op day #9: Management as per General Surgery. 05/24/18: Post-op day #8. Management per General surgery 05/23: Post-Op day #7. Management as per General Surgery. Have encouraged PT/OT and ordered this yesterday so that it can help with patient's post-op ileus. 05/22: Post-Op day #6. Management as per General Surgery. 05/20: Management as per General Surgery, now Dr. Lloyd Valente. Patient is post- op day #4. Spoke briefly to Dr. Valente who states that NG tube will not be removed today. Patient is still having a moderate amount of NG tube output, and it will still take some more time to decompress bowel. 05/18: Dr. Ontiveros of general surgery following and managing. Post-op day #2. 05/17: Status-post exp laparotomy, lysis of adhesions, and release of bowel obstruction post-operative day 1. Is on epidural fentanyl for post-operative pain control. TPN will be started by Dr. Ontiveros today and there is anticipated prolonged course of ileus until return of normal bowel function. This problem is being managed by Dr. Ontiveros of surgery. He seems to be making some improvement with the NG tube drainage, but is still pretty uncomfortable. Will defer to surgery for further management of this problem. (3) Klebsiella pneumoniae pneumonia Status: Acute Response to Treatment: Improving Discussed With: Patient, Family with Pt Consent Problem Specific Plan: Consult Specialist Problem Text: The sputum cx (that was taken while the patient was on Zosyn) grew Klebsiella pneumoniae which had intermediate sensitivity (only) for the Zosyn. He was changed to meropenem two days ago and has been feeling better since then. Continue meropenem for now. (4) Aspiration pneumonitis Status: Acute Problem Text: 05/28: It isn't certain if he has an aspiration pneumonitis or not, but he does have K. pneumoniae pneumonia and the treatment can be the same for these, especially guided by a sensitivity. 05/27: Zosyn d/ce'd yesterday. Added meropenem 1 gm q12h IV and is day #2 of [address] per Dr. Wilkins's recommendations from ID. Day #7 of Vancomycin. WBC encouragingly has trended back down to normal at 9.6. However, patient did spike a temperature of 100.5 at 23:59 last night. Will continue to monitor labs and clinically. Dr. Wilkins has ordered UA (patient has santacruz catheter), new blood cx x 2, and gram stain & sputum cx yesterday. UA was unremarkable. Blood cx are pending x 2. Sputum cx and gram stain show many WBCs, few epithelial cells, moderate gram (-) rods, and few gram (+) cocci in chains. CXR performed yesterday showed bibasilar pleuroparenchymal opacities. 05/26: Day #13 Zosyn and Day #6 of Vancomycin. WBC encouragingly is trending down and was down to 14.6 today. Will consult ID for any possible further recommendations for Dr. Wilkins. Has remained afebrile. 05/25: Day #12 Zosyn and Day #5 of Vancomycin. WBC is unfortunately trending up and up to 17.6 today. Suspect that patient has another source of infection other than abdominal abscess that may not be clear to us right now. Will consider ID consult with Dr. Wilkins if WBC goes up tomorrow. Afebrile all throughout 05/24/18 as well. 05/24/18: Remains on Zosyn (started on 05/14/18) and on Vancomycin (started on 05/21/19). WBC 11.2, T-max of 102.9 at 23:59 on 05/23/18. BC remain negative after 72 hours. Reports continued cough with sputum production. I will discuss with attending about repeat Chest x-ray and/or sputum culture 05/23: Day #10 of Zosyn and Day #3 of Vancomycin. WBC trending down to 10.5. Tmax was 100.7 at midnight last night. Currently, patient has been afebrile since. 05/22: Post-operative fevers likely secondary to aspiration pneumonia vs. multifocal pneumonia (HCAP). Day #9 of Zosyn and was begun on Vancomycin yesterday for more broad spectrum coverage. WBC trending down to 12.2. Tmax was 100.1 at midnight. Has been afebrile since. CT chest on 05/20 had shown bilatera l lower lobe consolidation and atelectasis, persistent R middle lobe multifactorial patchy densities, new mild patchy ground glass opacities within both upper lobes, diffuse infiltrates and small pleural effusions. 05/20: Day #7 Zosyn. WBC trending down from 16.1 to 11.8. Patient has been afebrile since 2 PM yesterday and satting in the 90s on room air. CXR today shows no significant change, bibasilar opacities and cardiomegaly status-quo. Blood cx show NGTD x 24 hours. 05/19 D#6 Zosyn. WBC up slightly B/C and f/u CXR pending - ordered by pulmonary Resp status improve - extubated on NC 05/18: Day #5 of zosyn. CXR was similar to prior. Please see under assessment #1. Continue to monitor clinically. 05/17: Likely secondary from reflux of gastric contents/secretions from NG tube. Continue zosyn. Day #4. (5) Hypomagnesemia Status: Resolved Problem Text: 05/27: Mg level WNL at 2.2. 05/26: Mg level was low at 1.6 today. Have replaced with Mg Sulfate Runs x 2. Will recheck Mg level at 1700. (6) Acute respiratory failure with hypoxia Status: Resolved Response to Treatment: Stable Problem Text: 05/28: It is likely that these acute respiratory events were the related to the K pneumoniae pneumonia. Will continue to monitor. 05/27: O2 saturation is 99% on 2L NC. May be able to wean down to 1L via NC today. Will plan on placing nursing order for this. 05/26: O2 saturation has remained in the low 90s at 2L NC. Will consider increasing O2 to 3 L. Will discuss with attending physician for need for this. Patient does not seem to have a prior hx of COPD however. 05/25: Stable O2 saturations in the 90s on 2L NC. 05/24/18: Remains on O2 vial nasal cannula to maintain saturations of >90% 05/23: Patient's O2 saturation was 93% on 2L nasal cannula. Have instructed staff to titrate patient's O2 above 90%, but not too high so as to avoid oxygen toxicity. Patient is still having net negative diuresis of 2.831 liters yesterday and -1.4 liters today. Is having good urine output: 1.99 mL/kg/hr. Weight is down from 67.9 kg to 66.4 kg today. Still on lasix 40 mg q6h IV. His lungs sound much clearer to me today. I believe his respiratory status has clinically improved from prior. Will continue santacruz for now to monitor net negative diuresis until this is complete. Also has epidural for pain control. 05/22: Hypoxia secondary to pulmonary edema secondary to diastolic CHF/volume overload. Patient had net negative diuresis of at least 2 liters yesterday. His O2 saturation has improved and he is requiring less oxygen than 2 days ago. He is now on 2 liters O2 via nasal cannula from 6 liters previously. 05/20: Improved. Is satting in the 90s on room air without significant work of breathing. Is in NAD. Still mildly tachypneic with RR in the low 20s. 05/19 - successfully tolerated extubation - on NC today - Per Pulmonary 05/18: Trial of weaning off ventilator was not predictive of success for extubation. Dr. Hays will be performing another trial today. 05/17: Patient went into acute hypoxic respiratory failure status-post surgery yesterday. Remained intubated and was placed on mechanical ventilation. Dr. Hays will be trying to wean patient to assess weather his SBI will go to <104 and if patient can take deep and slow breaths which would indicate success if patient were to be extubated. She will determine this today. He may be able to be extubated either today or tomorrow. (7) Low hemoglobin Status: Acute Problem Text: 05/28: His Hb has been relatively stable since the transfusion. This is good news, but we continue to need to look closely at his Hb to make sure it doesn't acutely drop again. 05/27: Hgb dropped down to 6.7* yesterday at 18:25 unfortunately. Patient had to be transfused 2 units PRBCs and Hgb this AM was 8.2. Will recheck H&H next at 1643. Will transfuse as necessary. Continue to monitor H&H PRN and CBC daily. Drop in Hgb etiology not identified as of yet. DDx includes gastric ulcer, in traabdominal process post-surgically, GI bleed somewhere else, PUD, vs. heparin anticoagulation patient is on etc. 05/26: Hgb unfortunately dropped down to 7.5 today from 9.2 yesterday which is a drastic drop. I have ordered a repeat H&H at 1700 today. 05/25: Hgb was 9.2 today which is encouraging. Continue to monitor CBC. 05/24/18: Hgb 8.1 today. We will continue to monitor 05/23: Patient's Hgb last night was 7.9 and did not drop below 7.9 from yesterday AM. This morning, Hgb was 8.4. It is thus stable. We will continue to monitor his CBC and hold off on transfusion for now. 05/22: Patient's Hgb dropped down to 7.9. Will need to keep an eye on this and will recheck CBC in 12 hours from the one performed earlier today: at 1722. Nursing to call provider if repeat CBC shows Hgb <7.7. (8) Acute kidney injury Status: Resolved Problem Text: 05/27: Renal fx improving. BUN 46 (H) and Cr has trended down to 1.64 (H) today from 1.91 (H) yesterday. Vanc trough level today was WNL at 19.6. 05/26: BUN and Cr unfortunately have trended up and were 45 and 1.91 respectively from 23 and 1.91 yesterday. I suspect this may have to do with possible supratherapeutic dose of vancomycin as the vanc trough level was elevated today at 32.1. Will speak to attending physician and possibly talk to pharmacy regarding adjusting dose for renally dosing the vanco. 05/25: BUN 23 and Cr 1.06. Kidney fx stable. GFR >60. Continue to monitor. 05/24/18:BUN/Cre 22/1.09, GFR > 60, remains stable 05/23: Cr 1.18 and stable. Continue monitoring via BMP. On lasix for diuresis. 05/22: Creatinine stable. Monitor renal fx due to risk of kidney injury from diuresis with lasix. 05/20: Creatinine continuing to improve and is down to 1.13 from 1.25 yesterday. 05/19 - Crea continues to improve. Na+ 151, K+ low this am Surgery managing IVF and electrolyte replacement 05/18: Cr improved today to 1.52 from 1.60 yesterday. Continue to monitor BMP. Is getting IV hydration and TPN which is a concern for 3rd spacing of fluid. Does have trace edema in bilateral lower extremities. Dr. Hays was recommending to try some lasix. 05/17: Creatinine bumped up to 1.60 today with GFR lower at 44.7 from yesterday and is likely from severe dehydration from bowel obstruction. Will continue to monitor BMP and continue IV hydration as necessary. His BUN is down a little, but his creatinine is up. Overall his GFR is down a little more today. Will continue the IV hydration and monitor. I believe that he was significantly dehydrated by the time he was admitted. (9) Hypertension Status: Chronic Response to Treatment: Stable Problem Specific Plan: Monitor Clinically Problem Text: 05/27: BP well controlled. No other episodes of hypotension noted yesterday. Continue to monitor. Lactated Ringer's IVF still running @ 50 mLs/hr. 05/26: BP well controlled today at 132/96. However, I was concerned patient might have been developing some signs of sepsis yesterday as I did notice upon review of VS from yesterday, patient became hypotensive at one point to 76/40 at 12 PM, 98/44 at 13:05, 101/58 at 15:01, and 103/54 at 1600. Today, BP was 132/96 and is much improved. Patient also has become tachycardic since yesterday with HR's running from 101-110. Has also remained tachypneic with RR running into 20s-25. Will continue to monitor. Is receiving lactated ringer's IVF 1000 mL @ 50 mLs/hr. 05/25: Well controlled. Continue to monitor. 05/24/18: Remains well controlled 05/23: Stable and controlled. 05/22: Stable and controlled. BP was 124/60 today. 05/20: Stable and controlled. BP 140/69 today. 05/18: stable and controlled. Not on any antihypertensives. 05/17: BP well controlled without any antihypertensives. At this time, will hold any antihypertensives. His BP is well controlled at this time. Continue current regimen. Plan/VTE VTE Prophylaxis Ordered?: Yes (SQ heparin. TEDs and Sequentials.) Plan/Urinary Catheter Urinary Catheter: D/C Santacruz Reason for insertion/continuin: Critical Pt monitoring Plan IVF: Decrease VS, I&O, 24H, Fishbone Vital Signs/I&O Vital Signs Date Time Temp Pulse Resp B/P (MAP) Pulse Ox O2 Delivery O2 Flow Rate FiO2 05/29/18 00:02 20 Nasal Cannula 2.0 05/29/18 00:00 99.8 100 160/76 (104) 97 I&O- Last 24 Hours up to 6 AM 05/29/18 06:00 Intake Total 0 ml Output Total 225 ml Balance -225 ml Laboratory Data 24H LABS Laboratory Tests 2 05/28/18 05:06: Immature Granulocyte % (Auto) 2.7, White Blood Count 7.5, Red Blood Count 3.01L, Hemoglobin 9.1L, Hematocrit 27.5L, Mean Corpuscular Volume 91.4, Mean Corpuscular Hemoglobin 30.2, Mean Corpuscular Hemoglobin Concent 33.1, Red Cell Distribution Width 14.2, Platelet Count 364, Neutrophils (%) (Auto) 76.1H, L ymphocytes (%) (Auto) 12.1L, Monocytes (%) (Auto) 7.7H, Eosinophils (%) (Auto) 1.1, Basophils (%) (Auto) 0.3, Neutrophils # (Auto) 5.8, Lymphocytes # (Auto) 0.9L, Monocytes # (Auto) 0.6, Eosinophils # (Auto) 0.1, Basophils # (Auto) 0.0, Nucleated Red Blood Cells % (auto) 0.0, Anion Gap 8, Glomerular Filtration Rate > 60.0, Blood Urea Nitrogen 30H, Creatinine 1.23, Sodium Level 146H, Potassium Level 3.3L, Chloride Level 109H, Carbon Dioxide Level 29, Calcium Level 8.3L 05/28/18 19:05: Vancomycin Level Trough 14.2 CBC/BMP Laboratory Tests 05/28/18 05:06 Red Blood Count 3.01 L, Mean Corpuscular Volume 91.4, Mean Corpuscular Hemoglobin 30.2, Mean Corpuscular Hemoglobin Concent 33.1, Red Cell Distribution Width 14.2, Neutrophils (%) (Auto) 76.1 H, Lymphocytes (%) (Auto) 12.1 L, Monocytes (%) (Auto) 7.7 H, Eosinophils (%) (Auto) 1.1, Basophils (%) (Auto) 0.3, Neutrophils # (Auto) 5.8, Lymphocytes # (Auto) 0.9 L, Monocytes # (Auto) 0.6, Eosinophils # (Auto) 0.1, Basophils # (Auto) 0.0, Calcium Level 8.3 L Microbiology Microbiology 05/26/18 Blood Culture - Preliminary, Resulted No Growth after 48 hours. All Specime... 05/26/18 Blood Culture - Preliminary, Resulted No Growth after 48 hours. All Specime... 05/20/18 Blood Culture - Final, Complete NO GROWTH AFTER 5 DAYS 05/20/18 Blood Culture - Final, Complete NO GROWTH AFTER 5 DAYS 05/19/18 Blood Culture - Final, Complete NO GROWTH AFTER 5 DAYS 05/19/18 Blood Culture - Final, Complete NO GROWTH AFTER 5 DAYS 05/26/18 Gram Stain - Final, Complete 05/26/18 Sputum Culture - Final, Complete Klebsiella Pneumoniae 05/28/18 Catheter Tip Culture, Received Pending Andriy Leslie MD May 29, 2018 01:47
[2018-05-29] MEDS: PERCOCET 5MG/325MG TAB PO PRN ×3 (05:03→20:13)
[2018-05-29 05:32] LABS: BASO % 0.2 % (0.0-1.0); EOS # 0.1 10^3/uL (0.0-0.50); EOS % 0.8 % (0.0-3.0); HEMATOCRIT 27.5 % (42.0-52.0); HEMOGLOBIN 8.9 g/dl (13.5-17.5); LYMPH # 1.2 10^3/uL (1.5-4.5); LYMPH % 11.3 % (24.0-44.0); MEAN CORPUSCULAR HEMOGLOBIN 29.9 pg (27.0-33.0); MEAN CORPUSCULAR HGB CONC 32.4 g/dl (32.0-36.5); MEAN CORPUSCULAR VOLUME 92.3 fl (80.0-96.0); MONO # 0.8 10^3/uL (0.0-0.8); MONO % 8.2 % (0.0-5.0); NEUTROPHILS # 7.7 10^3/uL (1.8-7.7); NEUTROPHILS % 75.5 % (36.0-66.0); PLATELET COUNT, AUTOMATED 358 10^3/uL (150-450); RED BLOOD COUNT 2.98 10^6/uL (4.30-6.10); WHITE BLOOD COUNT 10.2 10^3/uL (4.0-10.0)
[2018-05-29 06:10] LABS: BLOOD UREA NITROGEN 24 MG/DL (7-18); CALCIUM LEVEL 7.8 MG/DL (8.8-10.2); CARBON DIOXIDE LEVEL 29 MEQ/L (21-32); CHLORIDE LEVEL 107 MEQ/L (98-107); CREATININE FOR GFR 1.18 MG/DL (0.70-1.30); GLOMERULAR FILTRATION RATE > 60.0 (>42); GLUCOSE, FASTING 129 MG/DL (70-100); POTASSIUM SERUM 3.8 MEQ/L (3.5-5.1); SODIUM LEVEL 142 MEQ/L (136-145)
[2018-05-29] MEDS: MEROPENEM INJ 1 GM in APPROPRIATE DILUENT 1 EA IV SCH ×2 (06:16→17:36)
[2018-05-29] MEDS: HEPARIN SOD (PORCINE) 5000 UNITS/ML VIAL SQ SCH ×3 (06:17→21:05)
[2018-05-29] MEDS: IPRATROPIUM 0.5MG/ALBUTEROL 2.5MG INH SOL UD 3ML (DUONEB)(J7620) NEB SCH ×4 (07:19→19:57)
[2018-05-29] MEDS: NYSTATIN 500,000 U/5 ML SUSP UDC SS SCH ×4 (08:32→20:13)
[2018-05-29] MEDS: amLODIPine 5 MG TAB PO SCH (08:32)
[2018-05-29] MEDS: ALVIMOPAN 12 MG CAPSULE (ENTEREG) PO SCH ×2 (08:32→20:13)
[2018-05-29] MEDS: PANTOPRAZOLE 40MG TAB (PROTONIX) PO SCH (08:32)
--- NOTE | 2018-05-29 09:21 | IPN ---
DATE: 05/28/2018 HISTORY: The patient is now postoperative day #12 from exploratory laparotomy with extensive lysis of adhesions for a bowel obstruction. The patient had initially been doing well after surgery and his diet was advanced but then showed worsening signs of an ileus or recurrent obstruction and his nasogastric tube was reinserted approximately 3 days ago. He has been nothing by mouth without nutritional support since then. He was also noted to have a rising white blood cell count, which is most likely related to a pneumonia. He does have a sputum culture from the , which grew Klebsiella, which was only intermediately sensitive to piperacillin tazobactam, which had been the drug he was on at the time. He is now on meropenem and his white count has come down nicely. Vital signs: Patient has had a maximum temperature (t-max) of 99.7 in the last 24 hours. His pulse is generally running in the 80s to low one 100s. Blood pressure is good and his oxygen saturation on 2 liters of nasal cannula oxygen is in the mid 90s. Intake and output yesterday: He had 300 recorded in with 1750 out. He had 1550 out in his urine and 200 from his ileostomy. This morning it was reported that he has air and some liquid stool from his ostomy. PHYSICAL EXAMINATION: The patient is a frail, elderly man lying quietly in the hospital bed; however, he is alert and appears oriented in his responses. He has a nasogastric tube in place. He has Little catheter in place. There are no abdominal drains remaining. The patient's skin is warm and dry. Heart exam shows a regular rate and rhythm. The lungs are clear. The abdomen appears somewhat full. He has an ileostomy in his right lower quadrant with an appliance in place. He has abdias in the midline incision and there is a small spot of drainage along the midline at about at the midpoint of the incision. This does not appear to represent a subcutaneous collection but perhaps a small amount of drainage from below the fascia. His central line site from yesterday is dressed and clean. Laboratory studies today show white count of 8, hemoglobin of 9, hematocrit of 28 and a platelet count of 364,000. Differential count shows 76% neutrophils, 12% lymphocytes and 8 monocytes. Chemistry profile shows a sodium of 146, potassium 3.3, chloride 109, CO2 of 29, BUN of 30 and creatinine of 1.2. Glucose of 82. His nutritional parameters yesterday showed a total protein of 5.0 with an albumin of 1.3. IMPRESSION: The patient appears overall to be doing fairly well at this point. His white blood cell count has returned into the normal range and his differential is normalizing. I suspect this is all related to the treatment for his pneumonia. His belly remains mildly distended but he has active bowel sounds and has function from his ileostomy and his NG tube has little to no output. PLAN I will go ahead and discontinue his NG tube today. He will be allowed to take a few sips or suck on a few ice chips. I will get a KUB just to see the gas pattern of his intestines today and monitor him before considering advancing his diet further. We will monitor his wound as to the drainage.
--- NOTE | 2018-05-29 09:49 | IPNPDOC ---
Subjective Date Seen The patient was seen on 05/29/18. Subjective Chief Complaint/HPI Pt this morning is feeling pretty good, better than yesterday. He really would like to eat some vanilla ice cream. He slept pretty well last night. Nursing is without concerns this morning. Constitutional: Denies: Chills, Fever ENT: Denies: Head Aches, Ear Pain Pulmonary: Denies: Dyspnea, Cough Cardiovascular: Denies: Chest Pain, Palpitations Gastrointestinal: Reports: Diarrhea; Denies: Nausea, Vomiting Neurological: Reports: Weakness Objective Physical Examination General Exam: Positive: Alert, Cooperative, No Acute Distress, Other (His voice is very soft when speaking, probably from irritation related to the NG tube.) Eye Exam: Positive: Conjunctiva & lids normal; Negative: Sclera icteric ENT Exam: Positive: Atraumatic, Mucous membr. moist/pink (He does have an abrasion of bruise he reports is from the NG tube. 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 ); Negative: Wheezing Heart Exam: Positive: Rate Normal, Regular Rhythm, Normal S1, Normal S2; Negative: Murmurs Telemetry: Positive: Sinus Abdomen Exam: Positive: Normal bowel sounds, Soft, Tenderness (Still tenderness to palpation of RUQ and RLQ and mid-abdominal region. Abdomen less distended today. Abdominal bandage at incisonal site not stained.), Other (ileostomy site with output still; bandage without stains today.) Extremity Exam: Negative: Edema Skin Exam: Positive: Nl turgor and temperature; Negative: Rash Neuro Exam: Positive: Normal Speech Psych Exam: Positive: Mood NL (his affect is getting flatter the longer he stays with us, but he realizes that this may be needed.), Oriented x 3 Assessment /Plan Problems (1) Status post exploratory laparotomy Status: Acute Response to Treatment: Stable Problem Text: 05/29 Post- op D13 Mgmt per GS. On clear liquid diet. 05/28: Post-op day #12. Abdominal exam similar to yesterday, slightly more bowel sounds noticed. filter tender jelly to palpation of RUQ and RLQ with mid- abdominal tenderness. Continue PT. Surgery is managing the pain control. 05/27: Post-op day #11. Abdominal exam similar to yesterday. filter tender jelly to palpation of RUQ and RLQ with mid-abdominal tenderness. Continue PT. Continue pain control, which seems controlled this AM. 05/26: Post-op day #10. Abdomen less distended today and patient reports less bloating and abdominal pain today subjectively. However, filter tender to palpation of RUQ and RLQ as well as mid-abdominal region. Patient, still has ileus and I have encouraged PT to work with patient to continue to help him. Pain control as per General Surgery. I see that they have added toradol to current pain regimen. Pain seems to be controlled enough today. 05/25: Post-op day #9. NG tube has been placed back by Dr. Ontiveros. Still has output in ileostomy. According to CT scan of chest/abdomen/pelvis, it seems patient still has ileus and is unable to get rid of the fluid in his abdomen and bladder. Have ordered nursing to place santacruz back in to help relieve fluid from pelvic region/ tract. Likely recovery will be a very slow course and ileus will take longer time to reverse. Still encourage working with PT to help with ileus. Continue management as per General Surgery. Pain control as per General Surgery. 05/24/18: Post-op day #8. Patient is tolerating full liquid diet. Good output in his ileostomy. General surgery still following. He continues to work with PT 05/23: Post-op day #7. NG tube was discontinued today. Is still having good ileostomy output and is still on TPN. Abdomen appropriately slightly tender to palpation in mid-abdominal region today at incisional site. Still with hypoact roro bowel sounds. 05/22: Post-op day #6. Management as per General Surgery. Still on TPN and has N G tube that is still having output. Ileostomy output is still good. Abdomen nontender to palpation today, but still with hypoactive bowel sounds. Will reorder PT/OT today. 05/20: Is post-operative day #4. Still on TPN with K and Mg replacement as per General Surgery. Has increased output from ileostomy site now which has improved. Abdomen still distended but not as tender to palpation--improving. Still hypoactive bowel sounds on auscultation. 05/19 - per surgery On TPN 05/18: Post-operative day #2. Patient on TPN. Minimal output from ileostomy site. Will likely have prolonged course of ileus. Still diffusely tender to palpation of abdomen, but is appropriate and soft. Important to rule out postoperative fever as patient has been having fevers with Tmax of 101.2 yesterday at noontime. Consider UA. CXR from today showed: There is pleuroparenchymal opacity again noted in the left base obscuring the left hemidiaphragm as before. There is slight haziness in the right base which may reflect a small amount of right pleural fluid. Will watch for signs of pneumo rock. Currently on day 5 of zosyn. 05/17: Patient is status-post exploratory laparotomy, lysis of adhesions, repair of enterotomy and serosal tears, release of bowel obstruction post-op day #1. Apparently, surgery took around 7 hours and patient is in need of ventilator support at this time post-surgery. General surgery is following and managing the SBO and Government Gauger is consulted to help further manage respiratory support. (2) SBO (small bowel obstruction) Status: Acute Response to Treatment: Improving Problem Text: 05/28: POD #12. He was able to go without an NG tube today, and tried a few small things, but found out that drinking soda still is probably not a good idea. 05/27: Post-op day #11: Continue to encourage PT. OT and ARU consult ordered yesterday. Management as per General Surgery: continue NG tube decompression. Keep NPO for now. Need to confirm whether patient needs TPN ordered now however for nutritional support. 05/26: Post-op day #10: Management as per General Surgery. Still suffering from ileus as per yesterday's CT abd/pelvis scan. Have encouraged PT to work with patient more to help with ileus. Have also ordered OT and ARU consult as patient was able to do well with PT yesterday. Please see HPI for details. 05/25: Post-op day #9: Management as per General Surgery. 05/24/18: Post-op day #8. Management per General surgery 05/23: Post-Op day #7. Management as per General Surgery. Have encouraged PT/OT and ordered this yesterday so that it can help with patient's post-op ileus. 05/22: Post-Op day #6. Management as per General Surgery. 05/20: Management as per General Surgery, now Dr. Lloyd Valente. Patient is post- op day #4. Spoke briefly to Dr. Valente who states that NG tube will not be removed today. Patient is still having a moderate amount of NG tube output, and it will still take some more time to decompress bowel. 05/18: Dr. Ontiveros of general surgery following and managing. Post-op day #2. 05/17: Status-post exp laparotomy, lysis of adhesions, and release of bowel obstruction post-operative day 1. Is on epidural fentanyl for post-operative pain control. TPN will be started by Dr. Ontiveros today and there is anticipated prolonged course of ileus until return of normal bowel function. This problem is being managed by Dr. Ontiveros of surgery. He seems to be making some improvement with the NG tube drainage, but is still pretty uncomfortable. Will defer to surgery for further management of this problem. (3) Klebsiella pneumoniae pneumonia Status: Acute Response to Treatment: Improving Discussed With: Patient, Family with Pt Consent Problem Specific Plan: Consult Specialist Problem Text: 05/29 Meropenam D4, prev on Zosyn, resp status improved, slight bump in WBC today, monitor. 05/28 The sputum cx (that was taken while the patient was on Zosyn) grew Klebsiella pneumoniae which had intermediate sensitivity (only) for the Zosyn. He was changed to meropenem two days ago and has been feeling better since then. Continue meropenem for now. (4) Aspiration pneumonitis Status: Acute Problem Text: 05/28: It isn't certain if he has an aspiration pneumonitis or not, but he does have K. pneumoniae pneumonia and the treatment can be the same for these, especially guided by a sensitivity. 05/27: Zosyn d/ce'd yesterday. Added meropenem 1 gm q12h IV and is day #2 of this as per Dr. Wilkins's recommendations from ID. Day #7 of Vancomycin. WBC encouragingly has trended back down to normal at 9.6. However, patient did spike a temperature of 100.5 at 23:59 last night. Will continue to monitor labs and clinically. Dr. Wilkins has ordered UA (patient has santacruz catheter), new blood cx x 2, and gram stain & sputum cx yesterday. UA was unremarkable. Blood cx are pending x 2. Sputum cx and gram stain show many WBCs, few epithelial cells, moderate gram (-) rods, and few gram (+) cocci in chains. CXR performed yesterday showed bibasilar pleuroparenchymal opacities. 05/26: Day #13 Zosyn and Day #6 of Vancomycin. WBC encouragingly is trending down and was down to 14.6 today. Will consult ID for any possible further re commendations for Dr. Wilkins. Has remained afebrile. 05/25: Day #12 Zosyn and Day #5 of Vancomycin. WBC is unfortunately trending up and up to 17.6 today. Suspect that patient has another source of infection other than abdominal abscess that may not be clear to us right now. Will consider ID consult with Dr. Wilkins if WBC goes up tomorrow. Afebrile all throughout 05/24/18 as well. 05/24/18: Remains on Zosyn (started on 05/14/18) and on Vancomycin (started on 05/21/19). WBC 11.2, T-max of 102.9 at 23:59 on 05/23/18. BC remain negative after 72 hours. Reports continued cough with sputum production. I will discuss with attending about repeat Chest x-ray and/or sputum culture 05/23: Day #10 of Zosyn and Day #3 of Vancomycin. WBC trending down to 10.5. Tmax was 100.7 at midnight last night. Currently, patient has been afebrile since. 05/22: Post-operative fevers likely secondary to aspiration pneumonia vs. multifocal pneumonia (HCAP). Day #9 of Zosyn and was begun on Vancomycin yesterday for more broad spectrum coverage. WBC trending down to 12.2. Tmax was 100.1 at midnight. Has been afebrile since. CT chest on 05/20 had shown bilateral lower lobe consolidation and atelectasis, persistent R middle lobe multifactorial patchy densities, new mild patchy ground glass opacities within both upper lobes, diffuse infiltrates and small pleural effusions. 05/20: Day #7 Zosyn. WBC trending down from 16.1 to 11.8. Patient has been afebrile since 2 PM yesterday and satting in the 90s on room air. CXR today shows no significant change, bibasilar opacities and cardiomegaly status-quo. Blood cx show NGTD x 24 hours. 05/19 D#6 Zosyn. WBC up slightly B/C and f/u CXR pending - ordered by pulmonary Resp status improve - extubated on NC 05/18: Day #5 of zosyn. CXR was similar to prior. Please see under assessment #1. Continue to monitor clinically. 05/17: Likely secondary from reflux of gastric contents/secretions from NG tube. Continue zosyn. Day #4. (5) Hypomagnesemia Status: Resolved Problem Text: 05/27: Mg level WNL at 2.2. 05/26: Mg level was low at 1.6 today. Have replaced with Mg Sulfate Runs x 2. Will recheck Mg level at 1700. (6) Acute respiratory failure with hypoxia Status: Resolved Response to Treatment: Stable Problem Text: 05/28: It is likely that these acute respiratory events were the related to the K pneumoniae pneumonia. Will continue to monitor. 05/27: O2 saturation is 99% on 2L NC. May be able to wean down to 1L via NC today. Will plan on placing nursing order for this. 05/26: O2 saturation has remained in the low 90s at 2L NC. Will consider increasing O2 to 3 L. Will discuss with attending physician for need for this. Patient does not seem to have a prior hx of COPD however. 05/25: Stable O2 saturations in the 90s on 2L NC. 05/24/18: Remains on O2 vial nasal cannula to maintain saturations of >90% 05/23: Patient's O2 saturation was 93% on 2L nasal cannula. Have instructed sta ff to titrate patient's O2 above 90%, but not too high so as to avoid oxygen toxicity. Patient is still having net negative diuresis of 2.831 liters yesterday and -1.4 liters today. Is having good urine output: 1.99 mL/kg/hr. Weight is down from 67.9 kg to 66.4 kg today. Still on lasix 40 mg q6h IV. His lungs sound much clearer to me today. I believe his respiratory status has clinically improved from prior. Will continue santacruz for now to monitor net negative diuresis until this is complete. Also has epidural for pain control. 05/22: Hypoxia secondary to pulmonary edema secondary to diastolic CHF/volume overload. Patient had net negative diuresis of at least 2 liters yesterday. His O2 saturation has improved and he is requiring less oxygen than 2 days ago. He is now on 2 liters O2 via nasal cannula from 6 liters previously. 05/20: Improved. Is satting in the 90s on room air without significant work of breathing. Is in NAD. Still mildly tachypneic with RR in the low 20s. 05/19 - successfully tolerated extubation - on NC today - Per Pulmonary 05/18: Trial of weaning off ventilator was not predictive of success for extubation. Dr. Hays will be performing another trial today. 05/17: Patient went into acute hypoxic respiratory failure status-post surgery yesterday. Remained intubated and was placed on mechanical ventilation. Dr. Hays will be trying to wean patient to assess weather his SBI will go to <104 and if patient can take deep and slow breaths which would indicate success if patient were to be extubated. She will determine this today. He may be able t o be extubated either today or tomorrow. (7) Low hemoglobin Status: Acute Problem Text: 05/28: His Hb has been relatively stable since the transfusion. This is good news, but we continue to need to look closely at his Hb to make pierre re it doesn't acutely drop again. 05/27: Hgb dropped down to 6.7* yesterday at 18:25 unfortunately. Patient had to be transfused 2 units PRBCs and Hgb this AM was 8.2. Will recheck H&H next at 1643. Will transfuse as necessary. Continue to monitor H&H PRN and CBC daily. Drop in Hgb etiology not identified as of yet. DDx includes gastric ulcer, intraabdominal process post-surgically, GI bleed somewhere else, PUD, vs. heparin anticoagulation patient is on etc. 05/26: Hgb unfortunately dropped down to 7.5 today from 9.2 yesterday which is a drastic drop. I have ordered a repeat H&H at 1700 today. 05/25: Hgb was 9.2 today which is encouraging. Continue to monitor CBC. 05/24/18: Hgb 8.1 today. We will continue to monitor 05/23: Patient's Hgb last night was 7.9 and did not drop below 7.9 from yesterday AM. This morning, Hgb was 8.4. It is thus stable. We will continue to monitor his CBC and hold off on transfusion for now. 05/22: Patient's Hgb dropped down to 7.9. Will need to keep an eye on this and will recheck CBC in 12 hours from the one performed earlier today: at 1722. Nurs ing to call provider if repeat CBC shows Hgb <7.7. (8) Acute kidney injury Status: Resolved Problem Text: 05/27: Renal fx improving. BUN 46 (H) and Cr has trended down to 1.64 (H) today from 1.91 (H) yesterday. Vanc trough level today was WNL at 19.6. 05/26: BUN and Cr unfortunately have trended up and were 45 and 1.91 respectiv ava from 23 and 1.91 yesterday. I suspect this may have to do with possible supratherapeutic dose of vancomycin as the vanc trough level was elevated today at 32.1. Will speak to attending physician and possibly talk to pharmacy regarding adjusting dose for renally dosing the vanco. 05/25: BUN 23 and Cr 1.06. Kidney fx stable. GFR >60. Continue to monitor. 05/24/18:BUN/Cre 22/1.09, GFR > 60, remains stable 05/23: Cr 1.18 and stable. Continue monitoring via BMP. On lasix for diuresis. 05/22: Creatinine stable. Monitor renal fx due to risk of kidney injury from diuresis with lasix. 05/20: Creatinine continuing to improve and is down to 1.13 from 1.25 yesterday. 05/19 - Crea continues to improve. Na+ 151, K+ low this am Surgery managing IVF and electrolyte replacement 05/18: Cr improved today to 1.52 from 1.60 yesterday. Continue to monitor BMP. Is getting IV hydration and TPN which is a concern for 3rd spacing of fluid. Does have trace edema in bilateral lower extremities. Dr. Hays was recommending to try some lasix. 05/17: Creatinine bumped up to 1.60 today with GFR lower at 44.7 from yesterday and is likely from severe dehydration from bowel obstruction. Will continue to monitor BMP and continue IV hydration as necessary. His BUN is down a little, but his creatinine is up. Overall his GFR is down a little more today. Will continue the IV hydration and monitor. I believe that he was significantly dehydrated by the time he was admitted. (9) Hypertension Status: Chronic Response to Treatment: Stable Problem Specific Plan: Monitor Clinically Problem Text: 05/27: BP well controlled. No other episodes of hypotension noted yesterday. Continue to monitor. Lactated Ringer's IVF still running @ 50 mLs/hr. 05/26: BP well controlled today at 132/96. However, I was concerned patient might have been developing some signs of sepsis yesterday as I did notice upon review of VS from yesterday, patient became hypotensive at one point to 76/40 at 12 PM, 98/44 at 13:05, 101/58 at 15:01, and 103/54 at 1600. Today, BP was 132/96 and is much improved. Patient also has become tachycardic since yesterday with HR's running from 101-110. Has also remained tachypneic with RR running into 20s-25. Will continue to monitor. Is receiving lactated ringer's IVF 1000 mL @ 50 mLs/hr. 05/25: Well controlled. Continue to monitor. 05/24/18: Remains well controlled 05/23: Stable and controlled. 05/22: Stable and controlled. BP was 124/60 today. 05/20: Stable and controlled. BP 140/69 today. 05/18: stable and controlled. Not on any antihypertensives. 05/17: BP well controlled without any antihypertensives. At this time, will hold any antihypertensives. His BP is well controlled at this time. Continue current regimen. Plan/VTE VTE Prophylaxis Ordered?: Yes (SQ heparin. TEDs and Sequentials.) Plan/Urinary Catheter Urinary Catheter: D/C Santacruz Reason for insertion/continuin: Critical Pt monitoring Plan IVF: Decrease VS, I&O, 24H, Fishbone Vital Signs/I&O Vital Signs Date Time Temp Pulse Resp B/P (MAP) Pulse Ox O2 Delivery O2 Flow Rate FiO2 05/29/18 08:32 80 146/72 05/29/18 08:00 97.3 20 93 Nasal Cannula 2.0 I&O- Last 24 Hours up to 6 AM 05/29/18 05:59 Intake Total 500 ml Output Total 1225 ml Balance -725 ml Laboratory Data 24H LABS Laboratory Tests 2 05/28/18 19:05: Vancomycin Level Trough 14.2 05/29/18 04:44: Immature Granulocyte % (Auto) 4.0H, White Blood Count 10.2H, Red Blood Count 2.98L, Hemoglobin 8.9L, Hematocrit 27.5L, Mean Corpuscular Volume 92.3, Mean Corpuscular Hemoglobin 29.9, Mean Corpuscular Hemoglobin Concent 32.4, Red Cell Distribution Width 13.7, Platelet Count 358, Neutrophils (%) (Auto) 75.5H, Lymphocytes (%) (Auto) 11.3L, Monocytes (%) (Auto) 8.2H, Eosinophils (%) (Auto) 0.8, Basophils (%) (Auto) 0.2, Neutrophils # (Auto) 7.7, Lymphocytes # (Auto) 1.2L, Monocytes # (Auto) 0.8, Eosinophils # (Auto) 0.1, Basophils # (Auto) 0.0, Nucleated Red Blood Cells % (auto) 0.2H, Anion Gap 6L, Glomerular Filtration Rate > 60.0, Blood Urea Nitrogen 24H, Creatinine 1.18, Sodium Level 142, Potassium Level 3.8, Chloride Level 107, Carbon Dioxide Level 29, Calcium Level 7.8L CBC/BMP Laboratory Tests 05/29/18 04:44 Red Blood Count 2.98 L, Mean Corpuscular Volume 92.3, Mean Corpuscular Hemoglobin 29.9, Mean Corpuscular Hemoglobin Concent 32.4, Red Cell Distribution Width 13.7, Neutrophils (%) (Auto) 75.5 H, Lymphocytes (%) (Auto) 11.3 L, Monocytes (%) (Auto) 8.2 H, Eosinophils (%) (Auto) 0.8, Basophils (%) (Auto) 0.2, Neutrophils # (Auto) 7.7, Lymphocytes # (Auto) 1.2 L, Monocytes # (Auto) 0.8, Eosinophils # (Auto) 0.1, Basophils # (Auto) 0.0, Calcium Level 7.8 L Microbiology Microbiology 05/26/18 Blood Culture - Preliminary, Resulted No Growth after 48 hours. All Specime... 05/26/18 Blood Culture - Preliminary, Resulted No Growth after 48 hours. All Specime... 05/20/18 Blood Culture - Final, Complete NO GROWTH AFTER 5 DAYS 05/20/18 Blood Culture - Final, Complete NO GROWTH AFTER 5 DAYS 05/19/18 Blood Culture - Final, Complete NO GROWTH AFTER 5 DAYS 05/19/18 Blood Culture - Final, Complete NO GROWTH AFTER 5 DAYS 05/26/18 Gram Stain - Final, Complete 05/26/18 Sputum Culture - Final, Complete Klebsiella Pneumoniae 05/28/18 Catheter Tip Culture, Received Pending RENÉE MAI PA-C May 29, 2018 09:49
[2018-05-29] MEDS: LR 1,000 ML IV SCH (13:32)
[2018-05-29] MEDS: VANCOMYCIN HCL 1,000 MG, VIAL MATE ADAPTER 1 EACH in D5W 250 ML IV SCH (20:10)
[2018-05-30] MEDS: PERCOCET 5MG/325MG TAB PO PRN ×3 (01:04→22:06)
[2018-05-30 04:00] VITALS: BP 135/65
[2018-05-30 04:47] LABS: BASO % 0.1 % (0.0-1.0); EOS # 0.1 10^3/uL (0.0-0.50); EOS % 0.9 % (0.0-3.0); HEMATOCRIT 25.1 % (42.0-52.0); HEMOGLOBIN 8.3 g/dl (13.5-17.5); LYMPH # 1.5 10^3/uL (1.5-4.5); LYMPH % 10.6 % (24.0-44.0); MEAN CORPUSCULAR HEMOGLOBIN 29.9 pg (27.0-33.0); MEAN CORPUSCULAR HGB CONC 33.1 g/dl (32.0-36.5); MEAN CORPUSCULAR VOLUME 90.3 fl (80.0-96.0); MONO # 0.9 10^3/uL (0.0-0.8); MONO % 6.4 % (0.0-5.0); NEUTROPHILS # 10.9 10^3/uL (1.8-7.7); PLATELET COUNT, AUTOMATED 289 10^3/uL (150-450); RED BLOOD COUNT 2.78 10^6/uL (4.30-6.10); WHITE BLOOD COUNT 13.9 10^3/uL (4.0-10.0)
[2018-05-30 05:09] LABS: BLOOD UREA NITROGEN 16 MG/DL (7-18); CALCIUM LEVEL 7.3 MG/DL (8.8-10.2); CARBON DIOXIDE LEVEL 29 MEQ/L (21-32); CHLORIDE LEVEL 105 MEQ/L (98-107); CREATININE FOR GFR 0.93 MG/DL (0.70-1.30); GLOMERULAR FILTRATION RATE > 60.0 (>42); GLUCOSE, FASTING 107 MG/DL (70-100); POTASSIUM SERUM 3.3 MEQ/L (3.5-5.1); SODIUM LEVEL 139 MEQ/L (136-145)
[2018-05-30] MEDS: HEPARIN SOD (PORCINE) 5000 UNITS/ML VIAL SQ SCH (05:10)
[2018-05-30] MEDS: LR 1,000 ML IV SCH (05:11)
[2018-05-30] MEDS: MEROPENEM INJ 1 GM in APPROPRIATE DILUENT 1 EA IV SCH ×2 (05:12→17:39)
[2018-05-30] MEDS: IPRATROPIUM 0.5MG/ALBUTEROL 2.5MG INH SOL UD 3ML (DUONEB)(J7620) NEB SCH ×4 (07:41→20:23)
--- NOTE | 2018-05-30 07:54 | IPN ---
DATE: 05/29/2018 HISTORY: The patient is now 13 days postop from exploratory laparotomy for a bowel obstruction. His course has been complicated by Klebsiella pneumonia, which is now improving nicely while on meropenem. Yesterday his NG tube was discontinued and he was started on some clear liquids. He reports that he has tolerated these well and indicates that he had a very large amount out from his ileostomy yesterday evening with a lot of air and stool. He is sitting up in a chair at bedside and looks better than I have seen him. VITAL SIGNS: Show that he has been afebrile over the past 24 hours. Pulse is 80 this morning with a good blood pressure and his oxygen saturations are fine. INTAKE AND OUTPUT: Show yesterday they have a recorded intake of 400 with 800 of urine output and 50 mL from his ostomy. There are two incontinent voids recorded. PHYSICAL EXAMINATION: The patient is sitting up in a chair. He appears fairly comfortable. He greeted me warmly and seemed oriented. He denies any nausea or vomiting. Heart exam shows a regular rhythm. Abdomen is soft and he does have some bowel sounds present. His ostomy bag currently is empty. Laboratory studies this morning showed a white count of 10, hemoglobin 9, hematocrit of 28 and platelet count of 358,000. Differential count shows 76% neutrophils, 11% lymphocytes with 8% monocytes. Chemistry profile shows normal electrolytes with BUN of 24, creatinine 1.2 and a glucose of 129. IMPRESSION: The patient appears to be doing well at this point. He tolerated removal of his NG tube and has had some clear liquids. He reports that he has been passing some flatus and stool from his ostomy. PLAN: We will continue him on clear liquids for now. I am still concerned that he may have some partial obstruction and would hate to precipitate a full-fledged obstruction from solid foods at this time. He will stay on the clear liquids. He is encouraged to be up out of bed. I will reassess him tomorrow as to possible changes in his diet, but I think we should go quite slowly in advancing his diet at this time.
[2018-05-30 08:00] VITALS: BP 137/66
--- NOTE | 2018-05-30 08:26 | REP ---
Clinical: Small bowel obstruction. Comparison: 05/28/2018. Findings: Single supine view of the abdomen and pelvis. Findings: Bowel gas pattern is improved with decreased air-filled distended loops of bowel noted. No organomegaly. Skeletal structures stable. No obvious free air. Impression: Improved bowel gas pattern. Electronically Signed by Mart Romeo MD 05/30/2018 08:17 A
[2018-05-30] MEDS: PANTOPRAZOLE 40MG TAB (PROTONIX) PO SCH (09:20)
[2018-05-30] MEDS: ALVIMOPAN 12 MG CAPSULE (ENTEREG) PO SCH ×2 (09:20→20:49)
[2018-05-30] MEDS: amLODIPine 5 MG TAB PO SCH (09:21)
[2018-05-30] MEDS: NYSTATIN 500,000 U/5 ML SUSP UDC SS SCH ×4 (09:21→20:49)
[2018-05-30 12:00] VITALS: BP 147/71
[2018-05-30] MEDS ORDERED: KCL 10MEQ/100ML SWI (KRUN) 10 MEQ in APPROPRIATE DILUENT 1 EA IV SCH (12:00)
[2018-05-30] MEDS ORDERED: POTASSIUM CHLORIDE 10 MEQ SR TABLET PO ONE (14:30)
[2018-05-30 16:00] VITALS: BP 150/72
[2018-05-30 20:00] VITALS: BP 140/64
[2018-05-30] MEDS: VANCOMYCIN HCL 1,000 MG, VIAL MATE ADAPTER 1 EACH in D5W 250 ML IV SCH (20:49)
[2018-05-31] VITALS (7 sets, daily range): BP systolic 134–155; BP diastolic 64–72
[2018-05-31] MEDS: PERCOCET 5MG/325MG TAB PO PRN ×3 (02:43→12:44)
[2018-05-31] MEDS: MEROPENEM INJ 1 GM in APPROPRIATE DILUENT 1 EA IV SCH ×2 (05:24→17:21)
[2018-05-31 05:49] LABS: HEMATOCRIT 24.7 % (42.0-52.0); HEMOGLOBIN 8.2 g/dl (13.5-17.5); MEAN CORPUSCULAR HEMOGLOBIN 30.3 pg (27.0-33.0); MEAN CORPUSCULAR HGB CONC 33.2 g/dl (32.0-36.5); MEAN CORPUSCULAR VOLUME 91.1 fl (80.0-96.0); PLATELET COUNT, AUTOMATED 274 10^3/uL (150-450); RED BLOOD COUNT 2.71 10^6/uL (4.30-6.10); WHITE BLOOD COUNT 12.3 10^3/uL (4.0-10.0)
[2018-05-31 06:15] LABS: ALBUMIN 1.1 GM/DL (3.2-5.2); ALT/SGPT 54 U/L (12-78); BILIRUBIN,TOTAL 0.9 MG/DL (0.2-1.0); BLOOD UREA NITROGEN 13 MG/DL (7-18); CALCIUM LEVEL 7.5 MG/DL (8.8-10.2); CARBON DIOXIDE LEVEL 26 MEQ/L (21-32); CHLORIDE LEVEL 107 MEQ/L (98-107); CREATININE FOR GFR 0.84 MG/DL (0.70-1.30); GLOMERULAR FILTRATION RATE > 60.0 (>42); GLUCOSE, FASTING 96 MG/DL (70-100); POTASSIUM SERUM 3.7 MEQ/L (3.5-5.1); SODIUM LEVEL 140 MEQ/L (136-145)
[2018-05-31 06:27] LABS: EOSINOPHILS 2 % (0-5); LYMPHOCYTES 9 % (16-52); METAMYELOCYTES 3 % (0-0); MONOCYTES 6 % (0-8); MYELOCYTES 2 % (0-0); NEUTROPHILS 75 % (35-75)
[2018-05-31 06:28] LABS: PLATELET ESTIMATE NORMAL (NORMAL)
[2018-05-31 06:29] LABS: ANISOCYTOSIS 1+
[2018-05-31] MEDS: IPRATROPIUM 0.5MG/ALBUTEROL 2.5MG INH SOL UD 3ML (DUONEB)(J7620) NEB SCH ×4 (07:43→20:41)
[2018-05-31] MEDS: NYSTATIN 500,000 U/5 ML SUSP UDC SS SCH ×4 (09:33→20:02)
[2018-05-31] MEDS: amLODIPine 5 MG TAB PO SCH (09:34)
[2018-05-31] MEDS: PANTOPRAZOLE 40MG TAB (PROTONIX) PO SCH (09:34)
[2018-05-31] MEDS: ALVIMOPAN 12 MG CAPSULE (ENTEREG) PO SCH ×2 (09:34→20:02)
[2018-05-31] MEDS: ENOXAPARIN 40 MG/0.4 ML SYRINGE (J1650) SC SCH (09:36)
--- NOTE | 2018-05-31 10:01 | IPN ---
DATE: 05/30/2018 Rasheed feels about the same as yesterday, maybe a little less short of breath, no new issues. PHYSICAL EXAMINATION: Afebrile. Vital signs stable. Lungs scattered rhonchi. Heart regular rhythm. Abdomen soft, nontender. LABS: White count is up to 13.9, hemoglobin 8.3, platelets 289, sodium 139, potassium 3.3, BUN 16, creatinine 0.9, glucose 107, IMPRESSION: 1. Small bowel obstruction status post exploratory laparotomy. For surgery, Dr. Mcdaniel is rounding today. We discussed the case. 2. Klebsiella pneumonia on meropenem, day 5. Previously was on Zosyn. White count has continued to climb. I am concerned about this. Suspected aspiration. Also on vancomycin day 10. 3. Hypokalemia. Supplemental potassium has been ordered. 4. Acute kidney injury. Renal function is at baseline.
--- NOTE | 2018-05-31 14:17 | IPN ---
DATE: 05/31/2018 Rasheed is seen in progressive care unit (PCU). We are on consultation with him. He is asking for some augmented pain medication. He apparently had quite a bit of discomfort last night. PHYSICAL EXAM: Afebrile. 153/72, oxygen saturation 95%. General appearance: He is chronically ill-appearing. He is sitting up in a chair. Lungs: Decreased breath sounds. Heart: Regular rate and rhythm. Abdomen is distended, diffusely tender. No peripheral edema. LABS: White count is 12.3, hemoglobin 8.2, platelets 273. Sodium 140, potassium 3.7, BUN 13, creatinine 0.8, glucose 96. IMPRESSION: 1. Klebsiella pneumoniae. He is on meropenem day #6. White count has stabilized. Continue vancomycin, currently day #10. 2. Hypokalemia. This is better. 3. Acute kidney injury. Renal function is at baseline. 4. Abdominal pain with small bowel obstruction with exploratory laparotomy. We will augment his analgesics. 5. Hypertension. Blood pressure is under good control. He is on amlodipine 5 mg daily.
--- NOTE | 2018-05-31 16:32 | IPN ---
DATE: 05/30/2018 HISTORY: The patient is now postoperative day #14 from exploratory laparotomy for extensive adhesions with bowel obstruction. He has also had pneumonia with a culture from May 26 growing Klebsiella pneumonia, and he is responding well to meropenem. His nasogastric (NG) tube was discontinued within the last 2 days, and he was started on clear liquids yesterday, which he has been tolerating acceptably. There is not much recorded in intake, but his urine output has been acceptable. He has had some stool from his ileostomy. Vital signs show that he has been afebrile over the past 24 hours. Pulse is in the 80s, and his blood pressure is good. Intake and output yesterday showed 520 in with 1125 out. PHYSICAL EXAMINATION: Reveals a frail, elderly gentleman in no apparent distress. He is alert and responsive when roused from slumber. Heart exam shows a regular rhythm. Lungs sounds are somewhat distant. The abdomen is flat but mildly firm. He does have active bowel sounds, and the ostomy appliance has a small amount of air and stool in the bag. He has abdias in his midline incision still. The Little catheter remains in place and is draining clear, light yellow urine. Laboratory studies today show sodium 139, potassium 3.3, chloride 105, CO2 of 29, BUN of 16, creatinine 0.9, and a glucose of 107. CBC reveals a white count of 14,000 with hemoglobin of 8, hematocrit of 25, and 289,000 platelets. Differential count shows 78% neutrophils, 11% lymphocytes, and 6% monocytes. His white count is slightly higher today than it had been on May 29. Today it is 14, yesterday 10, and the day before 8. IMPRESSION: Overall the patient appears to be doing fairly well. He is comfortable and tolerating clear liquids with improved ostomy function. His white count is slightly elevated today and has gone up over the last couple days. He remains on vancomycin and meropenem. PLAN: We will recheck a chest x-ray to reassess his pulmonary infiltrates. I will advance him to a full liquid diet from clears and monitor his tolerance of this. Labs will be repeated tomorrow.
[2018-05-31] MEDS: VANCOMYCIN HCL 1,000 MG, VIAL MATE ADAPTER 1 EACH in D5W 250 ML IV SCH (20:05)
[2018-06-01 04:00] VITALS: BP 139/69
[2018-06-01] MEDS: PERCOCET 5MG/325MG TAB PO PRN ×4 (04:21→23:35)
[2018-06-01] MEDS: MEROPENEM INJ 1 GM in APPROPRIATE DILUENT 1 EA IV SCH ×2 (05:07→17:32)
[2018-06-01 05:55] LABS: HEMATOCRIT 25.3 % (42.0-52.0); HEMOGLOBIN 8.2 g/dl (13.5-17.5); MEAN CORPUSCULAR HEMOGLOBIN 29.2 pg (27.0-33.0); MEAN CORPUSCULAR HGB CONC 32.4 g/dl (32.0-36.5); PLATELET COUNT, AUTOMATED 297 10^3/uL (150-450); RED BLOOD COUNT 2.81 10^6/uL (4.30-6.10)
[2018-06-01 06:13] LABS: BLOOD UREA NITROGEN 11 MG/DL (7-18); CALCIUM LEVEL 7.6 MG/DL (8.8-10.2); CARBON DIOXIDE LEVEL 26 MEQ/L (21-32); CHLORIDE LEVEL 105 MEQ/L (98-107); CREATININE FOR GFR 0.86 MG/DL (0.70-1.30); GLOMERULAR FILTRATION RATE > 60.0 (>42); GLUCOSE, FASTING 103 MG/DL (70-100); POTASSIUM SERUM 3.8 MEQ/L (3.5-5.1); SODIUM LEVEL 139 MEQ/L (136-145)
[2018-06-01 06:21] LABS: EOSINOPHILS 2 % (0-5); LYMPHOCYTES 13 % (16-52); METAMYELOCYTES 2 % (0-0); MONOCYTES 5 % (0-8); MYELOCYTES 2 % (0-0); NEUTROPHILS 75 % (35-75)
[2018-06-01 06:22] LABS: PLATELET ESTIMATE NORMAL (NORMAL)
[2018-06-01] MEDS: IPRATROPIUM 0.5MG/ALBUTEROL 2.5MG INH SOL UD 3ML (DUONEB)(J7620) NEB SCH ×4 (07:33→20:14)
[2018-06-01 08:00] VITALS: BP 150/70
[2018-06-01] MEDS: PANTOPRAZOLE 40MG TAB (PROTONIX) PO SCH (08:14)
[2018-06-01] MEDS: ALVIMOPAN 12 MG CAPSULE (ENTEREG) PO SCH ×2 (08:14→20:38)
[2018-06-01] MEDS: ENOXAPARIN 40 MG/0.4 ML SYRINGE (J1650) SC SCH (08:15)
[2018-06-01] MEDS: NYSTATIN 500,000 U/5 ML SUSP UDC SS SCH ×4 (08:15→20:38)
[2018-06-01] MEDS: amLODIPine 5 MG TAB PO SCH (08:15)
--- NOTE | 2018-06-01 10:40 | IPNPDOC ---
Subjective Date Seen The patient was seen on 06/01/18. Subjective Chief Complaint/HPI Patient seen and examined at bedside. Denies fevers, chills, chest pain, SOB, nausea, vomiting, diarrhea, constipation. Admits to abdominal pain about 4/10 in the mid-abdominal region. Is working with PT. States he had cream of wheat this AM without nausea/vomiting and tolerated this. Is without NG tube still. Still has santacruz catheter. General: Reports: Normal Appetite Constitutional: Denies: Chills, Fever Eyes: Denies: Vision change ENT: Denies: Head Aches Skin: Denies: Rash Pulmonary: Reports: Cough (productive of sputum but unable to expectorate); Denies: Dyspnea Cardiovascular: Denies: Chest Pain Gastrointestinal: Reports: Abdominal Pain (midabdominal region); Denies: Nausea, Vomiting, Diarrhea, Constipation Genitourinary: Denies: Dysuria Hematologic: Denies: Bleeding Excessively Endocrine: Denies: Polydipsia, Polyphagia Musculoskeletal: Denies: Joint Pain, Muscle Pain Neurological: Denies: Weakness, Numbness, Confusion Psych: Reports: Mood Normal Objective Physical Examination General Exam: Positive: Alert, Cooperative, No Acute Distress, Other (His voice is very soft when speaking, probably from irritation related to the NG tube.) Eye Exam: Positive: Conjunctiva & lids normal ENT Exam: Positive: Atraumatic, Mucous membr. moist/pink (He does have an abrasion of bruise he reports is from the NG tube. 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 ); Negative: Wheezing Heart Exam: Positive: Rate Normal, Regular Rhythm, Normal S1, Normal S2; Negative: Murmurs Telemetry: Positive: Sinus, Tachycardia, Other Telemetry: (HR in 140s last night) Abdomen Exam: Positive: Normal bowel sounds, Soft, Tenderness (Still tenderness to mid-abdominal region. Abdomen less distended today. Abdominal bandage at incisonal site is stained.), Other (ileostomy site with output still; ) Extremity Exam: Positive: Edema (trace bilaterally) Skin Exam: Positive: Nl turgor and temperature; Negative: Rash Neuro Exam: Positive: Normal Speech Psych Exam: Positive: Mood NL (his affect is getting flatter the longer he stays with us, but he realizes that this may be needed.), Oriented x 3 Assessment /Plan Problems (1) Status post exploratory laparotomy Status: Acute Response to Treatment: Stable Problem Text: 06/01: POD # 16. On full liquids diet now. Management per General Surgery. NG tube is still out and santacruz is still in. 05/29 Post- op D13 Mgmt per GS. On clear liquid diet. 05/28: Post-op day #12. Abdominal exam similar to yesterday, slightly more bowel sounds noticed. swift tender to palpation of RUQ and RLQ with mid- abdominal tenderness. Continue PT. Surgery is managing the pain control. 05/27: Post-op day #11. Abdominal exam similar to yesterday. swift tender to palpation of RUQ and RLQ with mid-abdominal tenderness. Continue PT. Continue pain control, which seems controlled this AM. 05/26: Post-op day #10. Abdomen less distended today and patient reports less bloating and abdominal pain today subjectively. However, tankroom tender to palpation of RUQ and RLQ as well as mid-abdominal region. Patient, still has ileus and I have encouraged PT to work with patient to continue to help him. Pain control as per General Surgery. I see that they have added toradol to current pain regimen. Pain seems to be controlled enough today. 05/25: Post-op day #9. NG tube has been placed back by Dr. Ontiveros. Still has output in ileostomy. According to CT scan of chest/abdomen/pelvis, it seems patient still has ileus and is unable to get rid of the fluid in his abdomen and bladder. Have ordered nursing to place santacruz back in to help relieve fluid from pelvic region/ tract. Likely recovery will be a very slow course and ileus will take longer time to reverse. Still encourage working with PT to help with ileus. Continue management as per General Surgery. Pain control as per General Surgery. 05/24/18: Post-op day #8. Patient is tolerating full liquid diet. Good output in his ileostomy. General surgery still following. He continues to work with PT 05/23: Post-op day #7. NG tube was discontinued today. Is still having good ileostomy output and is still on TPN. Abdomen appropriately slightly tender to palpation in mid-abdominal region today at incisional site. Still with hypoactive bowel sounds. 05/22: Post-op day #6. Management as per General Surgery. Still on TPN and has NG tube that is still having output. Ileostomy output is still good. Abdomen nontender to palpation today, but still with hypoactive bowel sounds. Will reorder PT/OT today. 05/20: Is post-operative day #4. Still on TPN with K and Mg replacement as per General Surgery. Has increased output from ileostomy site now which has improved. Abdomen still distended but not as tender to palpation--improving. Still hypoactive bowel sounds on auscultation. 05/19 - per surgery On TPN 05/18: Post-operative day #2. Patient on TPN. Minimal output from ileostomy site. Will likely have prolonged course of ileus. Still diffusely tender to palpation of abdomen, but is appropriate and soft. Important to rule out postoperative fever as patient has been having fevers with Tmax of 101.2 yesterday at noontime. Consider UA. CXR from today showed: There is pleuroparenchymal opacity again noted in the left base obscuring the left hemidiaphragm as before. There is slight haziness in the right base which may reflect a small amount of right pleural fluid. Will watch for signs of pneumonia. Currently on day 5 of zosyn. 05/17: Patient is status-post exploratory laparotomy, lysis of adhesions, repair of enterotomy and serosal tears, release of bowel obstruction post-op day #1. Apparently, surgery took around 7 hours and patient is in need of ventilator support at this time post-surgery. General surgery is following and managing the SBO and Court Liaison is consulted to help further manage respiratory support. (2) SBO (small bowel obstruction) Status: Acute Response to Treatment: Improving Problem Text: 06/01: POD #16. Is now without NG tube and tolerating a full liquids diet. Had cream of wheat today without problems, nausea, vomiting. Continue management as per General Surgery. Have encouraged patient to continue to work with PT as much as possible and get up and out of bed. Have encouraged patient to intake as much nutrition as he can tolerate for energy. 05/28: POD #12. He was able to go without an NG tube today, and tried a few small things, but found out that drinking soda still is probably not a good idea. 05/27: Post-op day #11: Continue to encourage PT. OT and ARU consult ordered yesterday. Management as per General Surgery: continue NG tube decompression. Keep NPO for now. Need to confirm whether patient needs TPN ordered now however for nutritional support. 05/26: Post-op day #10: Management as per General Surgery. Still suffering from ileus as per yesterday's CT abd/pelvis scan. Have encouraged PT to work with patient more to help with ileus. Have also ordered OT and ARU consult as patient was able to do well with PT yesterday. Please see HPI for details. 05/25: Post-op day #9: Management as per General Surgery. 05/24/18: Post-op day #8. Management per General surgery 05/23: Post-Op day #7. Management as per General Surgery. Have encouraged PT/OT and ordered this yesterday so that it can help with patient's post-op ileus. 05/22: Post-Op day #6. Management as per General Surgery. 05/20: Management as per General Surgery, now Dr. Lloyd Valente. Patient is post- op day #4. Spoke briefly to Dr. Valente who states that NG tube will not be removed today. Patient is still having a moderate amount of NG tube output, and it will still take some more time to decompress bowel. 05/18: Dr. Ontiveros of general surgery following and managing. Post-op day #2. 05/17: Status-post exp laparotomy, lysis of adhesions, and release of bowel obstruction post-operative day 1. Is on epidural fentanyl for post-operative pain control. TPN will be started by Dr. Ontiveros today and there is anticipated prolonged course of ileus until return of normal bowel function. This problem is being managed by Dr. Ontiveros of surgery. He seems to be making some improvement with the NG tube drainage, but is still pretty uncomfortable. Will defer to surgery for further management of this problem. (3) Klebsiella pneumoniae pneumonia Status: Acute Response to Treatment: Improving Discussed With: Patient, Family with Pt Consent Problem Specific Plan: Consult Specialist Problem Text: 06/01: On day # 7 of meropenem and day # [address] Mcdaniel wanted to do a CXR to check up on pneumonia. However, I did not see this done or ordered. I will plan on ordering this after talking to attending physician if he recommends it. WBC down to WNL at 10 today. Continue current antibiotic regimen. Patient slowly starting to look improved. 05/29 Meropenam D4, prev on Zosyn, resp status improved, slight bump in WBC today, monitor. 05/28 The sputum cx (that was taken while the patient was on Zosyn) grew Klebsiella pneumoniae which had intermediate sensitivity (only) for the Zosyn. He was changed to meropenem two days ago and has been feeling better since then. Continue meropenem for now. (4) Aspiration pneumonitis Status: Acute Problem Text: 05/28: It isn't certain if he has an aspiration pneumonitis or not, but he does have K. pneumoniae pneumonia and the treatment can be the same for these, especially guided by a sensitivity. 05/27: Zosyn d/ce'd yesterday. Added meropenem 1 gm q12h IV and is day #2 of this as per Dr. Wilkins's recommendations from ID. Day #7 of Vancomycin. WBC encouragingly has trended back down to normal at 9.6. However, patient did spike a temperature of 100.5 at 23:59 last night. Will continue to monitor labs and clinically. Dr. Wilkins has ordered UA (patient has santacruz catheter), new blood cx x 2, and gram stain & sputum cx yesterday. UA was unremarkable. Blood cx are pending x 2. Sputum cx and gram stain show many WBCs, few epithelial cells, moderate gram (-) rods, and few gram (+) cocci in chains. CXR performed yesterday showed bibasilar pleuroparenchymal opacities. 05/26: Day #13 Zosyn and Day #6 of Vancomycin. WBC encouragingly is trending down and was down to 14.6 today. Will consult ID for any possible further recommendations for Dr. Wilkins. Has remained afebrile. 05/25: Day #12 Zosyn and Day #5 of Vancomycin. WBC is unfortunately trending up and up to 17.6 today. Suspect that patient has another source of infection other than abdominal abscess that may not be clear to us right now. Will consider ID consult with Dr. Wilkins if WBC goes up tomorrow. Afebrile all throughout 05/24/18 as well. 05/24/18: Remains on Zosyn (started on 05/14/18) and on Vancomycin (started on 05/21/19). WBC 11.2, T-max of 102.9 at 23:59 on 05/23/18. BC remain negative aft er 72 hours. Reports continued cough with sputum production. I will discuss with attending about repeat Chest x-ray and/or sputum culture 05/23: Day #10 of Zosyn and Day #3 of Vancomycin. WBC trending down to 10.5. Tmax was 100.7 at midnight last night. Currently, patient has been afebrile since. 05/22: Post-operative fevers likely secondary to aspiration pneumonia vs. multifocal pneumonia (HCAP). Day #9 of Zosyn and was begun on Vancomycin yesterday for more broad spectrum coverage. WBC trending down to 12.2. Tmax was 100.1 at midnight. Has been afebrile since. CT chest on 05/20 had shown b ilateral lower lobe consolidation and atelectasis, persistent R middle lobe multifactorial patchy densities, new mild patchy ground glass opacities within both upper lobes, diffuse infiltrates and small pleural effusions. 05/20: Day #7 Zosyn. WBC trending down from 16.1 to 11.8. Patient has been a febrile since 2 PM yesterday and satting in the 90s on room air. CXR today shows no significant change, bibasilar opacities and cardiomegaly status-quo. Blood cx show NGTD x 24 hours. 05/19 D#6 Zosyn. WBC up slightly B/C and f/u CXR pending - ordered by pulmonary Resp status improve - extubated on NC 05/18: Day #5 of zosyn. CXR was similar to prior. Please see under assessment #1. Continue to monitor clinically. 05/17: Likely secondary from reflux of gastric contents/secretions from NG tube. Continue zosyn. Day #4. (5) Acute respiratory failure with hypoxia Status: Resolved Response to Treatment: Stable Problem Text: 05/28: It is likely that these acute respiratory events were the related to the K pneumoniae pneumonia. Will continue to monitor. 05/27: O2 saturation is 99% on 2L NC. May be able to wean down to 1L via NC today. Will plan on placing nursing order for this. 05/26: O2 saturation has remained in the low 90s at 2L NC. Will consider increasing O2 to 3 L. Will discuss with attending physician for need for this. Patient does not seem to have a prior hx of COPD however. 05/25: Stable O2 saturations in the 90s on 2L NC. 05/24/18: Remains on O2 vial nasal cannula to maintain saturations of >90% 05/23: Patient's O2 saturation was 93% on 2L nasal cannula. Have instructed st aff to titrate patient's O2 above 90%, but not too high so as to avoid oxygen toxicity. Patient is still having net negative diuresis of 2.831 liters yesterday and -1.4 liters today. Is having good urine output: 1.99 mL/kg/hr. Weight is down from 67.9 kg to 66.4 kg today. Still on lasix 40 mg q6h IV. His lungs sound much clearer to me today. I believe his respiratory status has clinically improved from prior. Will continue santacruz for now to monitor net negative diuresis until this is complete. Also has epidural for pain control. 05/22: Hypoxia secondary to pulmonary edema secondary to diastolic CHF/volume overload. Patient had net negative diuresis of at least 2 liters yesterday. His O2 saturation has improved and he is requiring less oxygen than 2 days ago. He is now on 2 liters O2 via nasal cannula from 6 liters previously. 05/20: Improved. Is satting in the 90s on room air without significant work of breathing. Is in NAD. Still mildly tachypneic with RR in the low 20s. 05/19 - successfully tolerated extubation - on NC today - Per Pulmonary 05/18: Trial of weaning off ventilator was not predictive of success for extubation. Dr. Hays will be performing another trial today. 05/17: Patient went into acute hypoxic respiratory failure status-post surgery yesterday. Remained intubated and was placed on mechanical ventilation. Dr. Hays will be trying to wean patient to assess weather his SBI will go to <104 and if patient can take deep and slow breaths which would indicate success if patient were to be extubated. She will determine this today. He may be able to be extubated either today or tomorrow. (6) Low hemoglobin Status: Acute Problem Text: 06/01: Patient's Hgb was 8.2 today and 8.2 yesterday. It is stable. However, he is getting 1 unit of PRBC transfusion today as per General Surgery. Will continue to monitor CBC. Patient very weak and fatigued appearing. May benefit from this transfusion. No evidence of GI bleed thus far. 05/28: His Hb has been relatively stable since the transfusion. This is good news, but we continue to need to look closely at his Hb to make sure it doesn't acutely drop again. 05/27: Hgb dropped down to 6.7* yesterday at 18:25 unfortunately. Patient had to be transfused 2 units PRBCs and Hgb this AM was 8.2. Will recheck H&H next at 1643. Will transfuse as necessary. Continue to monitor H&H PRN and CBC daily. Drop in Hgb etiology not identified as of yet. DDx includes gastric ulcer, intraabdominal process post-surgically, GI bleed somewhere else, PUD, vs. heparin anticoagulation patient is on etc. 05/26: Hgb unfortunately dropped down to 7.5 today from 9.2 yesterday which is a drastic drop. I have ordered a repeat H&H at 1700 today. 05/25: Hgb was 9.2 today which is encouraging. Continue to monitor CBC. 05/24/18: Hgb 8.1 today. We will continue to monitor 05/23: Patient's Hgb last night was 7.9 and did not drop below 7.9 from AM. This morning, Hgb was 8.4. It is thus stable. We will continue to monitor his CBC and hold off on transfusion for now. 05/22: Patient's Hgb dropped down to 7.9. Will need to keep an eye on this and will recheck CBC in 12 hours from the one performed earlier today: at 1722. Nursing to call provider if repeat CBC shows Hgb <7.7. (7) Acute kidney injury Status: Resolved Problem Text: 06/01: Renal fx is WNL now and AXEL has indeed resolved. 05/27: Renal fx improving. BUN 46 (H) and Cr has trended down to 1.64 (H) today from 1.91 (H) yesterday. Vanc trough level today was WNL at 19.6. 05/26: BUN and Cr unfortunately have trended up and were 45 and 1.91 respectively from 23 and 1.91 yesterday. I suspect this may have to do with possible supratherapeutic dose of vancomycin as the vanc trough level was elevated today at 32.1. Will speak to attending physician and possibly talk to pharmacy regarding adjusting dose for renally dosing the vanco. 05/25: BUN 23 and Cr 1.06. Kidney fx stable. GFR >60. Continue to monitor. 05/24/18:BUN/Cre 22/1.09, GFR > 60, remains stable 05/23: Cr 1.18 and stable. Continue monitoring via BMP. On lasix for diuresis. 05/22: Creatinine stable. Monitor renal fx due to risk of kidney injury from diuresis with lasix. 05/20: Creatinine continuing to improve and is down to 1.13 from 1.25 yesterday. 05/19 - Crea continues to improve. Na+ 151, K+ low this am Surgery managing IVF and electrolyte replacement 05/18: Cr improved today to 1.52 from 1.60 yesterday. Continue to monitor BMP. Is getting IV hydration and TPN which is a concern for 3rd spacing of fluid. Does have trace edema in bilateral lower extremities. Dr. Hays was recommending to try some lasix. 05/17: Creatinine bumped up to 1.60 today with GFR lower at 44.7 from yesterday and is likely from severe dehydration from bowel obstruction. Will continue to monitor BMP and continue IV hydration as necessary. His BUN is down a little, but his creatinine is up. Overall his GFR is down a little more today. Will continue the IV hydration and monitor. I believe that he was significantly dehydrated by the time he was admitted. (8) Hypertension Status: Chronic Response to Treatment: Stable Problem Specific Plan: Monitor Clinically Problem Text: 06/01: BP is stable and controlled. No hypotensive episodes overnight. Continue to monitor. Encourage PO hydration. Not on any IVF any lo nger. NG tube is out. 05/27: BP well controlled. No other episodes of hypotension noted yesterday. Continue to monitor. Lactated Ringer's IVF still running @ 50 mLs/hr. 05/26: BP well controlled today at 132/96. However, I was concerned patient might have been developing some signs of sepsis yesterday as I did notice upon review of VS from yesterday, patient became hypotensive at one point to 76/40 at 12 PM, 98/44 at 13:05, 101/58 at 15:01, and 103/54 at 1600. Today, BP was 132/96 and is much improved. Patient also has become tachycardic since yesterday with HR's running from 101-110. Has also remained tachypneic with RR running into 20s-25. Will continue to monitor. Is receiving lactated ringer's IVF 1000 mL @ 50 mLs/hr. 05/25: Well controlled. Continue to monitor. 05/24/18: Remains well controlled 05/23: Stable and controlled. 05/22: Stable and controlled. BP was 124/60 today. 05/20: Stable and controlled. BP 140/69 today. 05/18: stable and controlled. Not on any antihypertensives. 05/17: BP well controlled without any antihypertensives. At this time, will hold any antihypertensives. His BP is well controlled at this time. Continue current regimen. (9) Hypomagnesemia Status: Resolved Problem Text: 05/27: Mg level WNL at 2.2. 05/26: Mg level was low at 1.6 today. Have replaced with Mg Sulfate Runs x 2. Will recheck Mg level at 1700. Plan/VTE VTE Prophylaxis Ordered?: Yes (Enoxaparin 40 mg SC, TEDs and Sequentials.) Plan/Urinary Catheter Urinary Catheter: Other Catheter: (still has santacruz catheter) Reason for insertion/continuin: Critical Pt monitoring Plan IVF: Decrease Disposition Pending clinical improvement. VS, I&O, 24H, Fishbone Vital Signs/I&O Vital Signs Date Time Temp Pulse Resp B/P (MAP) Pulse Ox O2 Delivery O2 Flow Rate FiO2 06/01/18 08:15 81 150/70 06/01/18 08:00 98.9 18 95 Room Air 06/01/18 04:35 2.0 I&O- Last 24 Hours up to 6 AM 06/01/18 06:00 Intake Total 1030 ml Output Total 1870 ml Balance -840 ml Laboratory Data 24H LABS Laboratory Tests 2 06/01/18 05:08: Immature Granulocyte % (Auto) , Nucleated Red Blood Cells % (auto) 0.0, Neutrophils 75, Band Neutrophils 1, Lymphocytes (Manual) 13L, Monocytes (Manual) 5, Eosinophils (Manual) 2, Metamyelocytes 2H, Myelocytes 2H, Platelet Estimate NORMAL, Anion Gap 8, Glomerular Filtration Rate > 60.0, Blood Urea Nitrogen 11, Creatinine 0.86, Sodium Level 139, Potassium Level 3.8, Chloride Level 105, Carbon Dioxide Level 26, Calcium Level 7.6L CBC/BMP Laboratory Tests 06/01/18 05:08 Red Blood Count 2.81 L, Mean Corpuscular Volume 90.0, Mean Corpuscular Hemoglobin 29.2, Mean Corpuscular Hemoglobin Concent 32.4, Red Cell Distribution Width 12.9, Calcium Level 7.6 L Microbiology Microbiology 05/26/18 Blood Culture - Final, Complete NO GROWTH AFTER 5 DAYS 05/26/18 Blood Culture - Final, Complete NO GROWTH AFTER 5 DAYS 05/26/18 Gram Stain - Final, Complete 05/26/18 Sputum Culture - Final, Complete Klebsiella Pneumoniae 05/28/18 Catheter Tip Culture - Final, Complete GME ATTESTATION GME ATTESTATION My faculty preceptor for this patient encounter was Dr. Clay Sousa, and was physically present during the encounter and was fully available. All aspects of the patient interview, examination, medical decision making process, and medical care plan development were reviewed and approved by the faculty preceptor. The faculty preceptor is aware and concurs with the plan as stated in the body of this note and will attest to such by his/her cosignature. BERYL JO DO Jun 01, 2018 10:40
[2018-06-01] MEDS: guaiFENesin ER 600 MG TAB PO SCH ×2 (12:17→20:38)
[2018-06-01 12:48] VITALS: BP 141/67
[2018-06-01 16:00] VITALS: BP 130/66
--- NOTE | 2018-06-01 18:05 | IPN ---
DATE: 05/31/2018 HISTORY: The patient is now 15 days postoperative from exploratory laparotomy and lysis of adhesions for a small-bowel obstruction. He had pneumonia as well, which had delayed his recovery, but he has now been improving with meropenem and vancomycin. He was advanced to full liquids yesterday. He reports that he has been tolerating fluids okay and that his ileostomy is working. Vital signs show that he has been afebrile for the past 24 hours. Pulse ranges from the upper 70s to the low 90s. Blood pressure is good with pulse oximetry showing high 90s oximetry with 2 liters of nasal cannula oxygen. Intake and output: Yesterday he had 1135 recorded in with 2200 recorded out. His ileostomy had 645 with 1500 of urine output. PHYSICAL EXAMINATION: Shows a frail elderly man lying quietly on the hospital bed. He rouses to voice and touch. He is alert and appears oriented. Heart exam shows a regular rhythm. Lungs show good bilateral breath sounds, though they are somewhat distant. The abdomen is flat. He has an ileostomy in the right lower quadrant. His dressing has a small area of drainage in the lower midportion, and when this is removed there is a small amount of drainage coming between two abdias near the middle of his incision. This is yellowish in color and seems to be primarily serous. He does have some bowel sounds present on auscultation, and the abdomen is generally soft. He has a couple of small trocar sites in the left side of the abdomen, and the abdias are removed from these two trocar sites, and two abdias are removed from the point in his incision where there has been some drainage. LABORATORY STUDIES: Show a white count of 12, hemoglobin 8, hematocrit 25, and platelet count of 274,000. Differential count shows 75% neutrophils, 3 bands, 9 lymphocytes, and 6 monocytes. Chemistry profile shows normal electrolytes with a BUN of 13, creatinine 0.8, and glucose of 96. His AST is slightly elevated from the most recent previous number, which was on the May 27, and this change has been from 21 to 136. His alkaline phosphatase has also gone up from 151 to 578 in that 4-day span. Total protein is 5.0 with an albumin of 1.1. IMPRESSION: The patient seems to be doing fairly well overall. He reports that he is tolerating his full liquids, and the ileostomy is working okay. He has had no recurrence of his nausea or vomiting. He reports that he is coughing up some phlegm and is breathing a little better. PLAN: The patient will be continued on his full liquids for now. I will request a dietitian consult for recommendations regarding improving his caloric intake. He will be continued on his Lovenox for deep vein thrombosis (DVT) prophylaxis. We will continue with periodic laboratory studies to follow his white count. His wound will be washed gently and dressed daily, and we will follow the small amount of drainage from his wound. TANNER
[2018-06-01 20:00] VITALS: BP 136/65
[2018-06-01 23:59] VITALS: BP 141/70
[2018-06-02 04:00] VITALS: BP 149/71
[2018-06-02] MEDS: PERCOCET 5MG/325MG TAB PO PRN (05:01)
[2018-06-02] MEDS: MEROPENEM INJ 1 GM in APPROPRIATE DILUENT 1 EA IV SCH ×2 (05:01→18:06)
[2018-06-02 05:40] LABS: HEMATOCRIT 26.6 % (42.0-52.0); HEMOGLOBIN 8.6 g/dl (13.5-17.5); MEAN CORPUSCULAR HEMOGLOBIN 29.5 pg (27.0-33.0); MEAN CORPUSCULAR HGB CONC 32.3 g/dl (32.0-36.5); MEAN CORPUSCULAR VOLUME 91.1 fl (80.0-96.0); PLATELET COUNT, AUTOMATED 299 10^3/uL (150-450); RED BLOOD COUNT 2.92 10^6/uL (4.30-6.10); WHITE BLOOD COUNT 9.8 10^3/uL (4.0-10.0)
[2018-06-02 06:08] LABS: BLOOD UREA NITROGEN 9 MG/DL (7-18); CALCIUM LEVEL 7.8 MG/DL (8.8-10.2); CARBON DIOXIDE LEVEL 26 MEQ/L (21-32); CHLORIDE LEVEL 106 MEQ/L (98-107); CREATININE FOR GFR 0.76 MG/DL (0.70-1.30); GLOMERULAR FILTRATION RATE > 60.0 (>42); GLUCOSE, FASTING 92 MG/DL (70-100); POTASSIUM SERUM 3.9 MEQ/L (3.5-5.1); SODIUM LEVEL 138 MEQ/L (136-145)
[2018-06-02 06:17] LABS: EOSINOPHILS 1 % (0-5); LYMPHOCYTES 18 % (16-52); METAMYELOCYTES 2 % (0-0); MONOCYTES 3 % (0-8); MYELOCYTES 4 % (0-0); NEUTROPHILS 72 % (35-75)
[2018-06-02 06:18] LABS: PLATELET ESTIMATE NORMAL (NORMAL)
[2018-06-02] MEDS: IPRATROPIUM 0.5MG/ALBUTEROL 2.5MG INH SOL UD 3ML (DUONEB)(J7620) NEB SCH ×4 (07:46→23:27)
[2018-06-02 07:58] VITALS: BP 149/72
[2018-06-02] MEDS: PANTOPRAZOLE 40MG TAB (PROTONIX) PO SCH (08:23)
[2018-06-02] MEDS: NYSTATIN 500,000 U/5 ML SUSP UDC SS SCH (08:23)
[2018-06-02] MEDS: ALVIMOPAN 12 MG CAPSULE (ENTEREG) PO SCH (08:23)
[2018-06-02] MEDS: guaiFENesin ER 600 MG TAB PO SCH ×2 (08:23→19:19)
[2018-06-02] MEDS: amLODIPine 5 MG TAB PO SCH (08:23)
[2018-06-02] MEDS: ENOXAPARIN 40 MG/0.4 ML SYRINGE (J1650) SC SCH (08:24)
--- NOTE | 2018-06-02 10:57 | IPNPDOC ---
Subjective Date Seen The patient was seen on 06/02/18. Subjective Chief Complaint/HPI Patient seen and examined at bedside. Denies fevers, chills, chest pain, SOB, nausea, vomiting. Ate cream of wheat this morning. Denies any abdominal pain currently. When he does have abdominal pain, it is in the mid-abdominal region where he had his surgical incision. Is asking when PT will be coming so that he can work on mobility today. Nursing staff, however, reports to me that patient is not working with PT for that long, and only works for around 25 minutes. General: Reports: Normal Appetite; Denies: Chills Constitutional: Denies: Chills, Fever Eyes: Denies: Vision change ENT: Denies: Head Aches Skin: Denies: Rash Pulmonary: Reports: Cough, Other Symptoms (admits to coughing up large amounts of phlegm yesterday and spitting it out. feels he is breathing better. ); Denies: Dyspnea Cardiovascular: Denies: Chest Pain Gastrointestinal: Reports: Abdominal Pain (not currently but has pain at times in the mid-abdominal region.); Denies: Nausea, Vomiting Genitourinary: Denies: Dysuria, Frequency Hematologic: Denies: Bruising Endocrine: Denies: Heat Intolerance, Cold Intolerance Musculoskeletal: Denies: Joint Pain, Muscle Pain Neurological: Denies: Weakness, Confusion Psych: Denies: Mood Normal Objective Physical Examination General Exam: Positive: Alert, Cooperative, No Acute Distress, Other (His voice is very soft when speaking) Eye Exam: Positive: Conjunctiva & lids normal; Negative: Sclera icteric ENT Exam: Positive: Atraumatic Neck Exam: Positive: Supple; Negative: Lymphadenopathy Chest Exam: Positive: Clear to auscultation, Diminished (in bilateral bases. ); Negative: Wheezing Heart Exam: Positive: Rate Normal, Regular Rhythm, Normal S1, Normal S2; Negative: Murmurs Telemetry: Positive: Sinus, Tachycardia, Other Telemetry: (HR in 140s during getting up to go to commode) Abdomen Exam: Positive: Normal bowel sounds, Soft, Tenderness (Still tenderness to mid-abdominal region. Abdomen less distended today. Abdominal bandage at incisonal site not stained.), Other (ileostomy site with output still; ) Extremity Exam: Positive: Edema (trace bilaterally); Negative: Clubbing, Cyanosis Skin Exam: Positive: Nl turgor and temperature; Negative: Rash Neuro Exam: Positive: Normal Speech Psych Exam: Positive: Mood NL (his affect is getting flatter the longer he stays with us, but he realizes that this may be needed.), Oriented x 3 Assessment /Plan Problems (1) Status post exploratory laparotomy Status: Acute Response to Treatment: Stable Problem Text: 06/02: POD #17. Still on full liquids diet now. Tolerated an entire bowel of cream of wheat again today. Recommend for General Surgery to look into considering d/ce'ing santacruz catheter. Patient is having good urine output. May consider advancing diet to regular tomorrow. Management per General Surgery. Will also transfer patient from PCU to [facility] and d/c telemetry as patient has been consistently sinus rhythm or sinus tach. 06/01: POD # 16. On full liquids diet now. Management per General Surgery. NG tu be is still out and santacruz is still in. 05/29 Post- op D13 Mgmt per GS. On clear liquid diet. 05/28: Post-op day #12. Abdominal exam similar to yesterday, slightly more bowel sounds noticed. dyeing machine tender to palpation of RUQ and RLQ with mid- abdominal tenderness. Continue PT. Surgery is managing the pain control. 05/27: Post-op day #11. Abdominal exam similar to yesterday. dyeing machine tender to p alpation of RUQ and RLQ with mid-abdominal tenderness. Continue PT. Continue pain control, which seems controlled this AM. 05/26: Post-op day #10. Abdomen less distended today and patient reports less bloating and abdominal pain today subjectively. However, bag machine tender to palpation of RUQ and RLQ as well as mid-abdominal region. Patient, still has ileus and I have encouraged PT to work with patient to continue to help him. Pain control as per General Surgery. I see that they have added toradol to current pain regimen. Pain seems to be controlled enough today. 05/25: Post-op day #9. NG tube has been placed back by Dr. Ontiveros. Still has output in ileostomy. According to CT scan of chest/abdomen/pelvis, it seems patient still has ileus and is unable to get rid of the fluid in his abdomen and bladder. Have ordered nursing to place santacruz back in to help relieve fluid from pelvic region/ tract. Likely recovery will be a very slow course and ileus will take longer time to reverse. Still encourage working with PT to help with ileus. Continue management as per General Surgery. Pain control as per General Surgery. 05/24/18: Post-op day #8. Patient is tolerating full liquid diet. Good output in his ileostomy. General surgery still following. He continues to work with PT 05/23: Post-op day #7. NG tube was discontinued today. Is still having good ileostomy output and is still on TPN. Abdomen appropriately slightly tender to palpation in mid-abdominal region today at incisional site. Still with hypoactive bowel sounds. 05/22: Post-op day #6. Management as per General Surgery. Still on TPN and has NG tube that is still having output. Ileostomy output is still good. Abdomen nontender to palpation today, but still with hypoactive bowel sounds. Will reorder PT/OT today. 05/20: Is post-operative day #4. Still on TPN with K and Mg replacement as per General Surgery. Has increased output from ileostomy site now which has improved. Abdomen still distended but not as tender to palpation--improving. Still hypoactive bowel sounds on auscultation. 05/19 - per surgery On TPN 05/18: Post-operative day #2. Patient on TPN. Minimal output from ileostomy site. Will likely have prolonged course of ileus. Still diffusely tender to palpation of abdomen, but is appropriate and soft. Important to rule out postoperative fever as patient has been having fevers with Tmax of 101.2 yesterday at noontime. Consider UA. CXR from today showed: There is pleuroparenchymal opacity again noted in the left base obscuring the left hemidiaphragm as before. There is slight haziness in the right base which may reflect a small amount of right pleural fluid. Will watch for signs of pneumon ia. Currently on day 5 of zosyn. 05/17: Patient is status-post exploratory laparotomy, lysis of adhesions, repair of enterotomy and serosal tears, release of bowel obstruction post-op day #1. Apparently, surgery took around 7 hours and patient is in need of ventilator support at this time post-surgery. General surgery is following and managing the SBO and Granulating Machine Operator is consulted to help further manage respiratory support. (2) SBO (small bowel obstruction) Status: Acute Response to Treatment: Improving Problem Text: 06/02: POD #17. Tolerating full liquids diet still. Consider advancing diet tomorrow. Dietary consult in place as well. Rest of management up to General Surgery. 06/01: POD #16. Is now without NG tube and tolerating a full liquids diet. Had cream of wheat today without problems, nausea, vomiting. Continue management as per General Surgery. Have encouraged patient to continue to work with PT as much as possible and get up and out of bed. Have encouraged patient to intake as much nutrition as he can tolerate for energy. 05/28: POD #12. He was able to go without an NG tube today, and tried a few small things, but found out that drinking soda still is probably not a good idea. 05/27: Post-op day #11: Continue to encourage PT. OT and ARU consult ordered yesterday. Management as per General Surgery: continue NG tube decompression. Keep NPO for now. Need to confirm whether patient needs TPN ordered now however for nutritional support. 05/26: Post-op day #10: Management as per General Surgery. Still suffering from ileus as per yesterday's CT abd/pelvis scan. Have encouraged PT to work with patient more to help with ileus. Have also ordered OT and ARU consult as patient was able to do well with PT yesterday. Please see HPI for details. 05/25: Post-op day #9: Management as per General Surgery. 05/24/18: Post-op day #8. Management per General surgery 05/23: Post-Op day #7. Management as per General Surgery. Have encouraged PT/OT and ordered this yesterday so that it can help with patient's post-op ileus. 05/22: Post-Op day #6. Management as per General Surgery. 05/20: Management as per General Surgery, now Dr. Lloyd Valente. Patient is post- op day #4. Spoke briefly to Dr. Valente who states that NG tube will not be removed today. Patient is still having a moderate amount of NG tube output, and it will still take some more time to decompress bowel. 05/18: Dr. Ontiveros of general surgery following and managing. Post-op day #2. 12/12: Status-post exp laparotomy, lysis of adhesions, and release of bowel obstruction post-operative day 1. Is on epidural fentanyl for post-operative pain control. TPN will be started by Dr. Ontiveros today and there is anticipated prolonged course of ileus until return of normal bowel function. This problem is being managed by Dr. Ontiveros of surgery. He seems to be making some improvement with the NG tube drainage, but is still pretty uncomfortable. Will defer to surgery for further management of this problem. (3) Klebsiella pneumoniae pneumonia Status: Acute Response to Treatment: Improving Discussed With: Patient, Family with Pt Consent Problem Specific Plan: Consult Specialist Problem Text: 06/02: On day #8 of meropenem. Vancomycin d/ce'd yesterday--looks like as per Dr. Wilkins. Will continue meropenem as this does cover klebsiella. Since patient is clinically improving, will not repeat CXR at this time. Blood cx so far negative. Catheter tip cx show no growth aerobically. WBC is WNL still at 9.8 which is encouraging. Patient is feeling like he can breathe better as well. Denies much of a cough but still has it with mucous production. Continue to monitor CBC and clinically. 06/01: On day # 7 of meropenem and day # [address] Mcdaniel wanted to do a CXR to check up on pneumonia. However, I did not see this done or ordered. I will plan on ordering this after talking to attending physician if he recommends it. WBC down to WNL at 10 today. Continue current antibiotic regimen. Patient slowly starting to look improved. 05/29 Meropenam D4, prev on Zosyn, resp status improved, slight bump in WBC today, monitor. 05/28 The sputum cx (that was taken while the patient was on Zosyn) grew Klebsiella pneumoniae which had intermediate sensitivity (only) for the Zosyn. He was changed to meropenem two days ago and has been feeling better since then. Continue meropenem for now. (4) Aspiration pneumonitis Status: Acute Problem Text: 05/28: It isn't certain if he has an aspiration pneumonitis or n ot, but he does have K. pneumoniae pneumonia and the treatment can be the same for these, especially guided by a sensitivity. 05/27: Zosyn d/ce'd yesterday. Added meropenem 1 gm q12h IV and is day #2 of [address] per Dr. Wilkins's recommendations from ID. Day #7 of Vancomycin. WBC encouragingly has trended back down to normal at 9.6. However, patient did spike a temperature of 100.5 at 23:59 last night. Will continue to monitor labs and clinically. Dr. Wilkins has ordered UA (patient has santacruz catheter), new blood cx x 2, and gram stain & sputum cx yesterday. UA was unremarkable. Blood cx are pendi ng x 2. Sputum cx and gram stain show many WBCs, few epithelial cells, moderate gram (-) rods, and few gram (+) cocci in chains. CXR performed yesterday showed bibasilar pleuroparenchymal opacities. 05/26: Day #13 Zosyn and Day #6 of Vancomycin. WBC encouragingly is trending down and was down to 14.6 today. Will consult ID for any possible further recommendations for Dr. Wilkins. Has remained afebrile. 05/25: Day #12 Zosyn and Day #5 of Vancomycin. WBC is unfortunately trending up and up to 17.6 today. Suspect that patient has another source of infection other than abdominal abscess that may not be clear to us right now. Will consider ID consult with Dr. Wilkins if WBC goes up tomorrow. Afebrile all throughout 05/24/18 as well. 05/24/18: Remains on Zosyn (started on 05/14/18) and on Vancomycin (started on 05/21/19). WBC 11.2, T-max of 102.9 at 23:59 on 05/23/18. BC remain negative after 72 hours. Reports continued cough with sputum production. I will discuss with attending about repeat Chest x-ray and/or sputum culture 05/23: Day #10 of Zosyn and Day #3 of Vancomycin. WBC trending down to 10.5. Tmax was 100.7 at midnight last night. Currently, patient has been afebrile since. 05/22: Post-operative fevers likely secondary to aspiration pneumonia vs. multifocal pneumonia (HCAP). Day #9 of Zosyn and was begun on Vancomycin yesterday for more broad spectrum coverage. WBC trending down to 12.2. Tmax was 100.1 at midnight. Has been afebrile since. CT chest on 05/20 had shown bilate ral lower lobe consolidation and atelectasis, persistent R middle lobe multifactorial patchy densities, new mild patchy ground glass opacities within both upper lobes, diffuse infiltrates and small pleural effusions. 05/20: Day #7 Zosyn. WBC trending down from 16.1 to 11.8. Patient has been afebrile since 2 PM yesterday and satting in the 90s on room air. CXR today shows no significant change, bibasilar opacities and cardiomegaly status-quo. Blood cx show NGTD x 24 hours. 05/19 D#6 Zosyn. WBC up slightly B/C and f/u CXR pending - ordered by pulmonary Resp status improve - extubated on NC 05/18: Day #5 of zosyn. CXR was similar to prior. Please see under assessment #1. Continue to monitor clinically. 05/17: Likely secondary from reflux of gastric contents/secretions from NG tube. Continue zosyn. Day #4. (5) Acute respiratory failure with hypoxia Status: Resolved Response to Treatment: Stable Problem Text: 05/28: It is likely that these acute respiratory events were the related to the K pneumoniae pneumonia. Will continue to monitor. 05/27: O2 saturation is 99% on 2L NC. May be able to wean down to 1L via NC today. Will plan on placing nursing order for this. 05/26: O2 saturation has remained in the low 90s at 2L NC. Will consider increasing O2 to 3 L. Will discuss with attending physician for need for this. Patient does not seem to have a prior hx of COPD however. 05/25: Stable O2 saturations in the 90s on 2L NC. 05/24/18: Remains on O2 vial nasal cannula to maintain saturations of >90% 05/23: Patient's O2 saturation was 93% on 2L nasal cannula. Have instructed staff to titrate patient's O2 above 90%, but not too high so as to avoid oxygen toxicity. Patient is still having net negative diuresis of 2.831 liters yesterday and -1.4 liters today. Is having good urine output: 1.99 mL/kg/hr. Weight is down from 67.9 kg to 66.4 kg today. Still on lasix 40 mg q6h IV. His lungs sound much clearer to me today. I believe his respiratory status has clinically improved from prior. Will continue santacruz for now to monitor net negative diuresis until this is complete. Also has epidural for pain control. 05/22: Hypoxia secondary to pulmonary edema secondary to diastolic CHF/volume overload. Patient had net negative diuresis of at least 2 liters yesterday. His O2 saturation has improved and he is requiring less oxygen than 2 days ago. He is now on 2 liters O2 via nasal cannula from 6 liters previously. 05/20: Improved. Is satting in the 90s on room air without significant work of breathing. Is in NAD. Still mildly tachypneic with RR in the low 20s. 05/19 - successfully tolerated extubation - on NC today - Per Pulmonary 05/18: Trial of weaning off ventilator was not predictive of success for extubation. Dr. Hays will be performing another trial today. 05/17: Patient went into acute hypoxic respiratory failure status-post surgery yesterday. Remained intubated and was placed on mechanical ventilation. Dr. Hays will be trying to wean patient to assess weather his SBI will go to <104 and if patient can take deep and slow breaths which would indicate success if patient were to be extubated. She will determine this today. He may be able to be extubated either today or tomorrow. (6) Low hemoglobin Status: Acute Problem Text: 06/02: Patient's hemoglobin went up to 8.6 today. Stable. Does not appear patient actually got any RBC transfusion yesterday. Will continue to monitor CBC. 06/01: Patient's Hgb was 8.2 today and 8.2 yesterday. It is stable. However, he is getting 1 unit of PRBC transfusion today as per General Surgery. Will continue to monitor CBC. Patient very weak and fatigued appearing. May benefit from this transfusion. No evidence of GI bleed thus far. 05/28: His Hb has been relatively stable since the transfusion. This is good news, but we continue to need to look closely at his Hb to make sure it doesn't acutely drop again. 05/27: Hgb dropped down to 6.7* yesterday at 18:25 unfortunately. Patient had to be transfused 2 units PRBCs and Hgb this AM was 8.2. Will recheck H&H next at 1643. Will transfuse as necessary. Continue to monitor H&H PRN and CBC daily. Drop in Hgb etiology not identified as of yet. DDx includes gastric ulcer, intraabdominal process post-surgically, GI bleed somewhere else, PUD, vs. heparin anticoagulation patient is on etc. 05/26: Hgb unfortunately dropped down to 7.5 today from 9.2 yesterday which is a drastic drop. I have ordered a repeat H&H at 1700 today. 05/25: Hgb was 9.2 today which is encouraging. Continue to monitor CBC. 05/24/18: Hgb 8.1 today. We will continue to monitor 05/23: Patient's Hgb last night was 7.9 and did not drop below 7.9 from yesterday AM. This morning, Hgb was 8.4. It is thus stable. We will continue to monitor his CBC and hold off on transfusion for now. 05/22: Patient's Hgb dropped down to 7.9. Will need to keep an eye on this and will recheck CBC in 12 hours from the one performed earlier today: at 1722. Nursing to call provider if repeat CBC shows Hgb <7.7. (7) Physical deconditioning Status: Acute Problem Text: 06/02: Patient needs to continue to work with PT for physical strengthening and mobility. Transferring to [facility] as there are no acute issues or need for patient to be on PCU any longer. Will d/c telemetry as well. (8) Acute kidney injury Status: Resolved Problem Text: 06/02: Renal fx still WNL. 06/01: Renal fx is WNL now and AXEL has indeed resolved. 05/27: Renal fx improving. BUN 46 (H) and Cr has trended down to 1.64 (H) today from 1.91 (H) yesterday. Vanc trough level today was WNL at 19.6. 05/26: BUN and Cr unfortunately have trended up and were 45 and 1.91 respectively from 23 and 1.91 yesterday. I suspect this may have to do with possible supratherapeutic dose of vancomycin as the vanc trough level was elevated today at 32.1. Will speak to attending physician and possibly talk to pharmacy regarding adjusting dose for renally dosing the vanco. 05/25: BUN 23 and Cr 1.06. Kidney fx stable. GFR >60. Continue to monitor. 05/24/18:BUN/Cre 22/1.09, GFR > 60, remains stable 05/23: Cr 1.18 and stable. Continue monitoring via BMP. On lasix for diuresis. 05/22: Creatinine stable. Monitor renal fx due to risk of kidney injury from diuresis with lasix. 05/20: Creatinine continuing to improve and is down to 1.13 from 1.25 yesterday. 05/19 - Crea continues to improve. Na+ 151, K+ low this am Surgery managing IVF and electrolyte replacement 05/18: Cr improved today to 1.52 from 1.60 yesterday. Continue to monitor BMP. Is getting IV hydration and TPN which is a concern for 3rd spacing of fluid. Does have trace edema in bilateral lower extremities. Dr. Hays was recommending to try some lasix. 05/17: Creatinine bumped up to 1.60 today with GFR lower at 44.7 from yesterday and is likely from severe dehydration from bowel obstruction. Will continue to monitor BMP and continue IV hydration as necessary. His BUN is down a little, but his creatinine is up. Overall his GFR is down a little more today. Will continue the IV hydration and monitor. I believe that he was significantly dehydrated by the time he was admitted. (9) Hypertension Status: Chronic Response to Treatment: Stable Problem Specific Plan: Monitor Clinically Problem Text: 06/02: BP stable and was 149/71 today. 06/01: BP is stable and controlled. No hypotensive episodes overnight. Continue to monitor. Encourage PO hydration. Not on any IVF any longer. NG tube is out. 05/27: BP well controlled. No other episodes of hypotension noted yesterday. Continue to monitor. Lactated Ringer's IVF still running @ 50 mLs/hr. 05/26: BP well controlled today at 132/96. However, I was concerned patient might have been developing some signs of sepsis yesterday as I did notice upon review of VS from yesterday, patient became hypotensive at one point to 76/40 at 12 PM, 98/44 at 13:05, 101/58 at 15:01, and 103/54 at 1600. Today, BP was 132/96 and is much improved. Patient also has become tachycardic since yesterday with HR's running from 101-110. Has also remained tachypneic with RR running into 20s-25. Will continue to monitor. Is receiving lactated ringer's IVF 1000 mL @ 50 mLs/hr. 05/25: Well controlled. Continue to monitor. 05/24/18: Remains well controlled 05/23: Stable and controlled. 05/22: Stable and controlled. BP was 124/60 today. 05/20: Stable and controlled. BP 140/69 today. 05/18: stable and controlled. Not on any antihypertensives. 05/17: BP well controlled without any antihypertensives. At this time, will hold any antihypertensives. His BP is well controlled at this time. Continue current regimen. (10) Hypomagnesemia Status: Resolved Problem Text: 05/27: Mg level WNL at 2.2. 05/26: Mg level was low at 1.6 today. Have replaced with Mg Sulfate Runs x 2. Will recheck Mg level at 1700. Plan/VTE VTE Prophylaxis Ordered?: Yes (Enoxaparin 40 mg SC, TEDs and Sequentials.) Plan/Urinary Catheter Urinary Catheter: Other Catheter: (still has santacruz catheter) Reason for insertion/continuin: Critical Pt monitoring Plan IVF: Decrease VS, I&O, 24H, Fishbone Vital Signs/I&O Vital Signs Date Time Temp Pulse Resp B/P (MAP) Pulse Ox O2 Delivery O2 Flow Rate FiO2 06/02/18 08:23 83 149/72 06/02/18 07:58 98.6 20 93 Room Air 06/01/18 04:35 2.0 I&O- Last 24 Hours up to 6 AM 06/02/18 06:00 Intake Total 1810 ml Output Total 2200 ml Balance -390 ml Laboratory Data 24H LABS Laboratory Tests 2 06/02/18 05:28: Immature Granulocyte % (Auto) , Nucleated Red Blood Cells % (auto) 0.0, Neutrophils 72, Lymphocytes (Manual) 18, Monocytes (Manual) 3, Eosinophils (Manual) 1, Metamyelocytes 2H, Myelocytes 4H, Platelet Estimate NORMAL, Anion Gap 6L, Glomerular Filtration Rate > 60.0, Blood Urea Nitrogen 9, Creatinine 0.76, Sodium Level 138, Potassium Level 3.9, Chloride Level 106, Carbon Dioxide Level 26, Calcium Level 7.8L CBC/BMP Laboratory Tests 06/02/18 05:28 Red Blood Count 2.92 L, Mean Corpuscular Volume 91.1, Mean Corpuscular Hemoglobin 29.5, Mean Corpuscular Hemoglobin Concent 32.3, Red Cell Distribution Width 13.2, Calcium Level 7.8 L Microbiology Microbiology 05/26/18 Blood Culture - Final, Complete NO GROWTH AFTER 5 DAYS 05/26/18 Blood Culture - Final, Complete NO GROWTH AFTER 5 DAYS 05/26/18 Gram Stain - Final, Complete 05/26/18 Sputum Culture - Final, Complete Klebsiella Pneumoniae 05/28/18 Catheter Tip Culture - Final, Complete GME ATTESTATION GME ATTESTATION My faculty preceptor for this patient encounter was Dr. Clay Sousa, and was physically present during the encounter and was fully available. All aspects of the patient interview, examination, medical decision making process, and medical care plan development were reviewed and approved by the faculty preceptor. The faculty preceptor is aware and concurs with the plan as stated in the body of this note and will attest to such by his/her cosignature. BERYL JO DO Jun 02, 2018 10:02
[2018-06-02] MEDS ORDERED: SLF 3 ML SYR IV PRN (11:00)
[2018-06-02 11:47] VITALS: BP 148/73
[2018-06-02] MEDS: SLF 3 ML SYR IV SCH ×2 (14:06→19:19)
[2018-06-02] MEDS: ACETAMINOPHEN 325 MG/10.15 ML UDC GT PRN (14:06)
[2018-06-02 15:30] VITALS: BP 145/73
[2018-06-02 22:00] VITALS: BP 138/72
[2018-06-03] MEDS: MEROPENEM INJ 1 GM in APPROPRIATE DILUENT 1 EA IV SCH ×2 (05:00→17:39)
[2018-06-03] MEDS: SLF 3 ML SYR IV SCH ×3 (05:01→22:00)
[2018-06-03 06:00] VITALS: BP 146/75
[2018-06-03 06:34] LABS: HEMATOCRIT 25.6 % (42.0-52.0); HEMOGLOBIN 8.5 g/dl (13.5-17.5); MEAN CORPUSCULAR HEMOGLOBIN 30.1 pg (27.0-33.0); MEAN CORPUSCULAR HGB CONC 33.2 g/dl (32.0-36.5); MEAN CORPUSCULAR VOLUME 90.8 fl (80.0-96.0); PLATELET COUNT, AUTOMATED 319 10^3/uL (150-450); RED BLOOD COUNT 2.82 10^6/uL (4.30-6.10); WHITE BLOOD COUNT 12.2 10^3/uL (4.0-10.0)
[2018-06-03 06:59] LABS: BLOOD UREA NITROGEN 10 MG/DL (7-18); CARBON DIOXIDE LEVEL 27 MEQ/L (21-32); CHLORIDE LEVEL 106 MEQ/L (98-107); CREATININE FOR GFR 0.76 MG/DL (0.70-1.30); GLOMERULAR FILTRATION RATE > 60.0 (>42); GLUCOSE, FASTING 91 MG/DL (70-100); POTASSIUM SERUM 3.6 MEQ/L (3.5-5.1); SODIUM LEVEL 140 MEQ/L (136-145)
[2018-06-03 07:23] LABS: ATYPICAL LYMPH 1 % (0-5); EOSINOPHILS 6 % (0-5); LYMPHOCYTES 15 % (16-52); MONOCYTES 1 % (0-8); MYELOCYTES 1 % (0-0); NEUTROPHILS 75 % (35-75)
[2018-06-03 07:24] LABS: ANISOCYTOSIS 1+; HYPOCHROMASIA 1+; MICROCYTOSIS 1+; PLATELET ESTIMATE NORMAL (NORMAL)
[2018-06-03] MEDS: IPRATROPIUM 0.5MG/ALBUTEROL 2.5MG INH SOL UD 3ML (DUONEB)(J7620) NEB SCH ×4 (08:00→18:33)
[2018-06-03] MEDS: ACYCLOVIR 5% OINT 15GM TOP SCH ×4 (09:17→22:11)
[2018-06-03] MEDS: guaiFENesin ER 600 MG TAB PO SCH ×2 (09:17→22:11)
[2018-06-03] MEDS: amLODIPine 5 MG TAB PO SCH (09:19)
[2018-06-03] MEDS: PANTOPRAZOLE 40MG TAB (PROTONIX) PO SCH (09:19)
[2018-06-03] MEDS: ENOXAPARIN 40 MG/0.4 ML SYRINGE (J1650) SC SCH (09:20)
[2018-06-03 10:00] VITALS: BP 144/69
--- NOTE | 2018-06-03 10:04 | IPN ---
DATE: 06/02/2018 HISTORY: Patient is now postop day 17 from exploratory lap and extensive lysis of adhesions for a small bowel obstruction. His postop course was slowed by pneumonia, but this has now improved. We have been gradually advancing his diet and he started full liquids on the . He has been taking these with increasing quantities over the last several days. Today he was advanced to a soft diet. He reports he is a little concerned about taking solid food because he does not wish to obstruct again and I reassured him that he could advance his diet as he tolerates. Vital signs: The patient has been afebrile over the past 24 hours with a pulse in the 80s and a good blood pressure. Room air oxygen saturations are normal. Intake and output yesterday showed 2000 in with 2500 out. His ileostomy had 720 recorded. PHYSICAL EXAMINATION: Patient is alert and appears oriented. Does seem quite frail and thin. Heart exam shows a regular rhythm. The abdomen is flat. His ostomy bag is in place. Laboratory studies today show a white count of 10 with a hemoglobin of 9, hematocrit of 27 and a platelet count of 299,000. Differential count shows 72% neutrophils, 18% lymphocytes and 3% monocytes. Chemistry profile shows a sodium of 138, potassium 3.9, chloride 106, CO2 of 26, BUN of 9, creatinine 0.76 and a glucose of 92. IMPRESSION: The patient appears to be making slow but steady progress. He remains on the meropenem and I have deferred the decision on discontinuance of this to the medicine providers. He does have orders from medicine to move to a medical-surgical floor and this seems appropriate. PLAN: The patient was advanced to a soft diet today. He seems to be doing quite well with excellent ostomy function. His surgical abdias were left in place at this point given his poor nutrition to allow for his wound to be well-healed before they are removed. I would anticipate that he would have a prolonged period of time to regain his strength. He may well be a candidate for acute rehab versus subacute rehab. TANNER
--- NOTE | 2018-06-03 12:37 | IPNPDOC ---
Text Note Date of Service The patient was seen on 06/03/18. NOTE No acute events overnight. Denies nausea, emesis, fevers, or pains. He has had good PO intake, and is having good ostomy output. No complaints of weakness. VSSAF UOP - 1000 stool - 150 NAD abd - soft, nt, nd, incisions c/d/i, ostomy in RLQ is pink and patent with stool in bag labs - below wbc - 9.8>12.2 A) 78y/o male s/p ex lap with extensive CARL and SBR P) reg soft diet ambulate PT d/c noam Fernández DO VS,Fishbone, I+O VS, Fishbone, I+O Laboratory Tests 06/03/18 06:06 Red Blood Count 2.82 L, Mean Corpuscular Volume 90.8, Mean Corpuscular Hemoglobin 30.1, Mean Corpuscular Hemoglobin Concent 33.2, Red Cell Distribution Width 13.2, Calcium Level 8.0 L Vital Signs Date Time Temp Pulse Resp B/P (MAP) Pulse Ox O2 Delivery O2 Flow Rate FiO2 06/03/18 10:00 99.4 78 18 144/69 (94) 95 Room Air 06/01/18 04:35 2.0 I&O- Last 24 Hours up to 6 AM 06/03/18 06:00 Intake Total 1610 ml Output Total 1550 ml Balance 60 ml LESVIA FERNÁNDEZ DO Jun 03, 2018 12:37
[2018-06-03 14:00] VITALS: BP 130/66
--- NOTE | 2018-06-03 15:03 | IPNPDOC ---
Subjective Date Seen The patient was seen on 06/03/18. Subjective Chief Complaint/HPI Patient seen and examined at bedside. Denies any acute complaints today. Is eating cheerios cereal for breakfast this AM. Denies fevers, chills, chest pain, SOB. Admits to minimal abdominal pain at this time. Denies nausea or vomiting. Has no other acute complaints today. General: Reports: Normal Appetite Constitutional: Denies: Chills, Fever ENT: Denies: Head Aches Skin: Denies: Rash Pulmonary: Reports: Cough (admits to slight cough with mucous production); Denies: Dyspnea Cardiovascular: Denies: Chest Pain Gastrointestinal: Denies: Nausea, Vomiting, Abdominal Pain, Diarrhea, Cons tipation Genitourinary: Denies: Dysuria Hematologic: Denies: Bruising Endocrine: Denies: Heat Intolerance, Cold Intolerance Musculoskeletal: Denies: Joint Pain, Muscle Pain Neurological: Denies: Weakness, Confusion Psych: Denies: Mood Normal Objective Physical Examination General Exam: Positive: Alert, Cooperative, No Acute Distress, Other (His voice is very soft when speaking) Eye Exam: Positive: Conjunctiva & lids normal ENT Exam: Positive: Atraumatic Neck Exam: Positive: Supple Chest Exam: Positive: Clear to auscultation, Diminished; Negative: Wheezing Heart Exam: Positive: Rate Normal, Regular Rhythm, Normal S1, Normal S2; Negative: Murmurs Abdomen Exam: Positive: Normal bowel sounds, Soft, Tenderness (Still tenderness to mid-abdominal region--seems appropriate and mild compared to prior. Abdomen less distended today. Abdominal bandage at incisonal site not stained. ), Other (ileostomy site with output still; ) Extremity Exam: Positive: Edema (trace bilaterally); Negative: Clubbing, Cyanosis Skin Exam: Positive: Nl turgor and temperature; Negative: Rash Neuro Exam: Positive: Normal Speech Psych Exam: Positive: Mood NL (his affect is getting flatter the longer he stays with us, but he realizes that this may be needed.), Oriented x 3 Assessment /Plan Problems (1) Status post exploratory laparotomy Status: Acute Response to Treatment: Stable Problem Text: 06/03: POD #18. Has been advanced to a soft diet. Was in the process of eating cheerios cereal this AM. Spoke to Dr. Fernández to consider d/ce'ing santacruz catheter and we were on the same page. He already d/ce'd it. Rest of management as per General Surgery. 06/02: POD #17. Still on full liquids diet now. Tolerated an entire bowel of cream of wheat again today. Recommend for General Surgery to look into considering d/ce'ing santacruz catheter. Patient is having good urine output. May consider advancing diet to regular tomorrow. Management per General Surgery. Will also transfer patient from PCU to [facility] and d/c telemetry as patient has been consistently sinus rhythm or sinus tach. 06/01: POD # 16. On full liquids diet now. Management per General Surgery. NG tube is still out and santacruz is still in. 05/29 Post- op D13 Mgmt per GS. On clear liquid diet. 05/28: Post-op day #12. Abdominal exam similar to yesterday, slightly more bowel sounds noticed. powerhouse tender to palpation of RUQ and RLQ with mid- abdominal tenderness. Continue PT. Surgery is managing the pain control. 05/27: Post-op day #11. Abdominal exam similar to yesterday. powerhouse tender to palpation of RUQ and RLQ with mid-abdominal tenderness. Continue PT. Continue pain control, which seems controlled this AM. 05/26: Post-op day #10. Abdomen less distended today and patient reports less bloating and abdominal pain today subjectively. However, back tender fourdrinier to palpation of RUQ and RLQ as well as mid-abdominal region. Patient, still has ileus and I have encouraged PT to work with patient to continue to help him. Pain control as per General Surgery. I see that they have added toradol to current pain regimen. Pain seems to be controlled enough today. 05/25: Post-op day #9. NG tube has been placed back by Dr. Ontiveros. Still has output in ileostomy. According to CT scan of chest/abdomen/pelvis, it seems patient still has ileus and is unable to get rid of the fluid in his abdomen and bladder. Have ordered nursing to place santacruz back in to help relieve fluid from pelvic region/ tract. Likely recovery will be a very slow course and ileus will take longer time to reverse. Still encourage working with PT to help with ileus. Continue management as per General Surgery. Pain control as per General Surgery. 05/24/18: Post-op day #8. Patient is tolerating full liquid diet. Good output in his ileostomy. General surgery still following. He continues to work with PT 05/23: Post-op day #7. NG tube was discontinued today. Is still having good ileostomy output and is still on TPN. Abdomen appropriately slightly tender to palpation in mid-abdominal region today at incisional site. Still with hypoactive bowel sounds. 05/22: Post-op day #6. Management as per General Surgery. Still on TPN and has NG tube that is still having output. Ileostomy output is still good. Abdomen nontender to palpation today, but still with hypoactive bowel sounds. Will reorder PT/OT today. 05/20: Is post-operative day #4. Still on TPN with K and Mg replacement as per General Surgery. Has increased output from ileostomy site now which has improved. Abdomen still distended but not as tender to palpation--improving. Still hypoactive bowel sounds on auscultation. 05/19 - per surgery On TPN 05/18: Post-operative day #2. Patient on TPN. Minimal output from ileostomy site. Will likely have prolonged course of ileus. Still diffusely tender to palpation of abdomen, but is appropriate and soft. Important to rule out postoperative fever as patient has been having fevers with Tmax of 101.2 yesterday at noontime. Consider UA. CXR from today showed: There is pleuroparenchymal opacity again noted in the left base obscuring the left hemidiaphragm as before. There is slight haziness in the right base which may reflect a small amount of right pleural fluid. Will watch for signs of pneumonia. Currently on day 5 of zosyn. 05/17: Patient is status-post exploratory laparotomy, lysis of adhesions, repair of enterotomy and serosal tears, release of bowel obstruction post-op day #1. Apparently, surgery took around 7 hours and patient is in need of ventilator support at this time post-surgery. General surgery is following and managing the SBO and Occupational Hygienist is consulted to help further manage respiratory support. (2) SBO (small bowel obstruction) Status: Acute Response to Treatment: Improving Problem Text: 06/03: POD #18: Advanced to soft diet. Will see if tolerates this. Management per General Surgery. 06/02: POD #17. Tolerating full liquids diet still. Consider advancing diet tomorrow. Dietary consult in place as well. Rest of management up to General Surgery. 06/01: POD #16. Is now without NG tube and tolerating a full liquids diet. Had cream of wheat today without problems, nausea, vomiting. Continue management as per General Surgery. Have encouraged patient to continue to work with PT as much as possible and get up and out of bed. Have encouraged patient to intake as much nutrition as he can tolerate for energy. 05/28: POD #12. He was able to go without an NG tube today, and tried a few small things, but found out that drinking soda still is probably not a good idea. 05/27: Post-op day #11: Continue to encourage PT. OT and ARU consult ordered yesterday. Management as per General Surgery: continue NG tube decompression. Keep NPO for now. Need to confirm whether patient needs TPN ordered now however for nutritional support. 05/26: Post-op day #10: Management as per General Surgery. Still suffering from ileus as per yesterday's CT abd/pelvis scan. Have encouraged PT to work with patient more to help with ileus. Have also ordered OT and ARU consult as patient was able to do well with PT yesterday. Please see HPI for details. 05/25: Post-op day #9: Management as per General Surgery. 05/24/18: Post-op day #8. Management per General surgery 05/23: Post-Op day #7. Management as per General Surgery. Have encouraged PT/OT and ordered this yesterday so that it can help with patient's post-op ileus. 05/22: Post-Op day #6. Management as per General Surgery. 05/20: Management as per General Surgery, now Dr. Lloyd Valente. Patient is post- op day #4. Spoke briefly to Dr. Valente who states that NG tube will not be removed today. Patient is still having a moderate amount of NG tube output, and it will still take some more time to decompress bowel. 05/18: Dr. Ontiveros of general surgery following and managing. Post-op day #2. 05/17: Status-post exp laparotomy, lysis of adhesions, and release of bowel obstruction post-operative day 1. Is on epidural fentanyl for post-operative pain control. TPN will be started by Dr. Ontiveros today and there is anticipated prolonged course of ileus until return of normal bowel function. This problem is being managed by Dr. Ontiveros of surgery. He seems to be making some improvement with the NG tube drainage, but is still pretty uncomfortable. Will defer to surgery for further management of this problem. (3) Klebsiella pneumoniae pneumonia Status: Acute Response to Treatment: Improving Discussed With: Patient, Family with Pt Consent Problem Specific Plan: Consult Specialist Problem Text: 06/03: On day #9 of meropenem alone. WBC unfortunately went back up today at 12.2 (H) from 9.8 yesterday. If WBC continues to increase, patient may need more imaging for further evaluation of another source of infection. Last CXR was 8 days ago, last abdominal x-ray was 4 days ago, last CT abd/pelvis was 9 days ago. Consider restarting patient on vancomycin if WBC climbs as patient was d/ce'd on this 2 days ago. 06/02: On day #8 of meropenem. Vancomycin d/ce'd yesterday--looks like as per Dr. Wilkins. Will continue meropenem as this does cover klebsiella. Since patient is clinically improving, will not repeat CXR at this time. Blood cx so far negative. Catheter tip cx show no growth aerobically. WBC is WNL still at 9.8 which is encouraging. Patient is feeling like he can breathe better as well. Denies much of a cough but still has it with mucous production. Continue to monitor CBC and clinically. 06/01: On day # 7 of meropenem and day # [address] Mcdaniel wanted to do a CXR to check up on pneumonia. However, I did not see this done or ordered. I will plan on ordering this after talking to attending physician if he recommends it. WBC down to WNL at 10 today. Continue current antibiotic regimen. Patient slowly starting to look improved. 05/29 Meropenam D4, prev on Zosyn, resp status improved, slight bump in WBC today, monitor. 05/28 The sputum cx (that was taken while the patient was on Zosyn) grew Klebsiella pneumoniae which had intermediate sensitivity (only) for the Zosyn. He was changed to meropenem two days ago and has been feeling better since then. Continue meropenem for now. (4) Aspiration pneumonitis Status: Acute Problem Text: 05/28: It isn't certain if he has an aspiration pneumonitis or not, but he does have K. pneumoniae pneumonia and the treatment can be the same for these, especially guided by a sensitivity. 05/27: Zosyn d/ce'd yesterday. Added meropenem 1 gm q12h IV and is day #2 of [address] per Dr. Wilkins's recommendations from ID. Day #7 of Vancomycin. WBC encouragingly has trended back down to normal at 9.6. However, patient did spike a temperature of 100.5 at 23:59 last night. Will continue to monitor labs and clinically. Dr. Wilkins has ordered UA (patient has santacruz catheter), new blood cx x 2, and gram stain & sputum cx yesterday. UA was unremarkable. Blood cx are pending x 2. Sputum cx and gram stain show many WBCs, few epithelial cells, moderate gram (-) rods, and few gram (+) cocci in chains. CXR performed yesterday showed bibasilar pleuroparenchymal opacities. 05/26: Day #13 Zosyn and Day #6 of Vancomycin. WBC encouragingly is trending down and was down to 14.6 today. Will consult ID for any possible further recommendations for Dr. Wilkins. Has remained afebrile. 05/25: Day #12 Zosyn and Day #5 of Vancomycin. WBC is unfortunately trending up and up to 17.6 today. Suspect that patient has another source of infection other than abdominal abscess that may not be clear to us right now. Will consider ID consult with Dr. Wilkins if WBC goes up tomorrow. Afebrile all throughout 05/24/18 as well. 05/24/18: Remains on Zosyn (started on 05/14/18) and on Vancomycin (started on 05/21/19). WBC 11.2, T-max of 102.9 at 23:59 on 05/23/18. BC remain negative after 72 hours. Reports continued cough with sputum production. I will discuss with attending about repeat Chest x-ray and/or sputum culture 05/23: Day #10 of Zosyn and Day #3 of Vancomycin. WBC trending down to 10.5. Tmax was 100.7 at midnight last night. Currently, patient has been afebrile since. 05/22: Post-operative fevers likely secondary to aspiration pneumonia vs. multifocal pneumonia (HCAP). Day #9 of Zosyn and was begun on Vancomycin yesterday for more broad spectrum coverage. WBC trending down to 12.2. Tmax was 100.1 at midnight. Has been afebrile since. CT chest on 05/20 had shown bilateral lower lobe consolidation and atelectasis, persistent R middle lobe multifactorial patchy densities, new mild patchy ground glass opacities within both upper lobes, diffuse infiltrates and small pleural effusions. 05/20: Day #7 Zosyn. WBC trending down from 16.1 to 11.8. Patient has been afebrile since 2 PM yesterday and satting in the 90s on room air. CXR today shows no significant change, bibasilar opacities and cardiomegaly status-quo. Blood cx show NGTD x 24 hours. 05/19 D#6 Zosyn. WBC up slightly B/C and f/u CXR pending - ordered by pulmonary Resp status improve - extubated on NC 05/18: Day #5 of zosyn. CXR was similar to prior. Please see under assessment #1. Continue to monitor clinically. 05/17: Likely secondary from reflux of gastric contents/secretions from NG tube. Continue zosyn. Day #4. (5) Acute respiratory failure with hypoxia Status: Resolved Response to Treatment: Stable Problem Text: 05/28: It is likely that these acute respiratory events were the related to the K pneumoniae pneumonia. Will continue to monitor. 05/27: O2 saturation is 99% on 2L NC. May be able to wean down to 1L via NC today. Will plan on placing nursing order for this. 05/26: O2 saturation has remained in the low 90s at 2L NC. Will consider increasing O2 to 3 L. Will discuss with attending physician for need for this. Patient does not seem to have a prior hx of COPD however. 05/25: Stable O2 saturations in the 90s on 2L NC. 05/24/18: Remains on O2 vial nasal cannula to maintain saturations of >90% 05/23: Patient's O2 saturation was 93% on 2L nasal cannula. Have instructed staff to titrate patient's O2 above 90%, but not too high so as to avoid oxygen toxicity. Patient is still having net negative diuresis of 2.831 liters yesterday and -1.4 liters today. Is having good urine output: 1.99 mL/kg/hr. Weight is down from 67.9 kg to 66.4 kg today. Still on lasix 40 mg q6h IV. His lungs sound much clearer to me today. I believe his respiratory status has clinically improved from prior. Will continue santacruz for now to monitor net negative diuresis until this is complete. Also has epidural for pain control. 05/22: Hypoxia secondary to pulmonary edema secondary to diastolic CHF/volume overload. Patient had net negative diuresis of at least 2 liters yesterday. His O2 saturation has improved and he is requiring less oxygen than 2 days ago. He is now on 2 liters O2 via nasal cannula from 6 liters previously. 05/20: Improved. Is satting in the 90s on room air without significant work of breathing. Is in NAD. Still mildly tachypneic with RR in the low 20s. 05/19 - successfully tolerated extubation - on NC today - Per Pulmonary 05/18: Trial of weaning off ventilator was not predictive of success for extubation. Dr. Hays will be performing another trial today. 05/17: Patient went into acute hypoxic respiratory failure status-post surgery yesterday. Remained intubated and was placed on mechanical ventilation. Dr. Hays will be trying to wean patient to assess weather his SBI will go to <104 and if patient can take deep and slow breaths which would indicate success if patient were to be extubated. She will determine this today. He may be able to be extubated either today or tomorrow. (6) Low hemoglobin Status: Acute Problem Text: 06/03: Hgb stable at 8.5 today. Continue to monitor CBC. 06/02: Patient's hemoglobin went up to 8.6 today. Stable. Does not appear patient actually got any RBC transfusion yesterday. Will continue to monitor CBC. 06/01: Patient's Hgb was 8.2 today and 8.2 yesterday. It is stable. However, he is getting 1 unit of PRBC transfusion today as per General Surgery. Will continue to monitor CBC. Patient very weak and fatigued appearing. May benefit from this transfusion. No evidence of GI bleed thus far. 05/28: His Hb has been relatively stable since the transfusion. This is good news, but we continue to need to look closely at his Hb to make sure it doesn't acutely drop again. 05/27: Hgb dropped down to 6.7* yesterday at 18:25 unfortunately. Patient had to be transfused 2 units PRBCs and Hgb this AM was 8.2. Will recheck H&H next at 1643. Will transfuse as necessary. Continue to monitor H&H PRN and CBC daily. Drop in Hgb etiology not identified as of yet. DDx includes gastric ulcer, intraabdominal process post-surgically, GI bleed somewhere else, PUD, vs. heparin anticoagulation patient is on etc. 05/26: Hgb unfortunately dropped down to 7.5 today from 9.2 yesterday which is a drastic drop. I have ordered a repeat H&H at 1700 today. 05/25: Hgb was 9.2 today which is encouraging. Continue to monitor CBC. 05/24/18: Hgb 8.1 today. We will continue to monitor 05/23: Patient's Hgb last night was 7.9 and did not drop below 7.9 from yesterday AM. This morning, Hgb was 8.4. It is thus stable. We will continue to monitor his CBC and hold off on transfusion for now. 05/22: Patient's Hgb dropped down to 7.9. Will need to keep an eye on this and will recheck CBC in 12 hours from the one performed earlier today: at 1722. Nursing to call provider if repeat CBC shows Hgb <7.7. (7) Physical deconditioning Status: Acute Problem Text: 06/03: Strongly encouraged patient to continue to work with PT for physical strengthening and mobility. 06/02: Patient needs to continue to work with PT for physical strengthening and mobility. Transferring to [facility] as there are no acute issues or need for patient to be on PCU any longer. Will d/c telemetry as well. (8) Acute kidney injury Status: Resolved Problem Text: 06/03: Renal fx WNL today. 06/02: Renal fx still WNL. 06/01: Renal fx is WNL now and AXEL has indeed resolved. 05/27: Renal fx improving. BUN 46 (H) and Cr has trended down to 1.64 (H) today from 1.91 (H) yesterday. Vanc trough level today was WNL at 19.6. 05/26: BUN and Cr unfortunately have trended up and were 45 and 1.91 respectively from 23 and 1.91 yesterday. I suspect this may have to do with possible supratherapeutic dose of vancomycin as the vanc trough level was tenzin vated today at 32.1. Will speak to attending physician and possibly talk to pharmacy regarding adjusting dose for renally dosing the vanco. 05/25: BUN 23 and Cr 1.06. Kidney fx stable. GFR >60. Continue to monitor. 05/24/18:BUN/Cre 22/1.09, GFR > 60, remains stable 05/23: Cr 1.18 and stable. Continue monitoring via BMP. On lasix for diuresis. 05/22: Creatinine stable. Monitor renal fx due to risk of kidney injury from diuresis with lasix. 05/20: Creatinine continuing to improve and is down to 1.13 from 1.25 yesterday. 05/19 - Crea continues to improve. Na+ 151, K+ low this am Surgery managing IVF and electrolyte replacement 05/18: Cr improved today to 1.52 from 1.60 yesterday. Continue to monitor BMP. Is getting IV hydration and TPN which is a concern for 3rd spacing of fluid. Does have trace edema in bilateral lower extremities. Dr. Hays was recommending to try some lasix. 05/17: Creatinine bumped up to 1.60 today with GFR lower at 44.7 from yesterday and is likely from severe dehydration from bowel obstruction. Will continue to monitor BMP and continue IV hydration as necessary. His BUN is down a little, but his creatinine is up. Overall his GFR is down a li ttle more today. Will continue the IV hydration and monitor. I believe that he was significantly dehydrated by the time he was admitted. (9) Hypertension Status: Chronic Response to Treatment: Stable Problem Specific Plan: Monitor Clinically Problem Text: 06/03: BP stable and was 146/75 this AM. 06/02: BP stable and was 149/71 today. 06/01: BP is stable and controlled. No hypotensive episodes overnight. Continue to monitor. Encourage PO hydration. Not on any IVF any longer. NG tube is out. 05/27: BP well controlled. No other episodes of hypotension noted yesterday. Continue to monitor. Lactated Ringer's IVF still running @ 50 mLs/hr. 05/26: BP well controlled today at 132/96. However, I was concerned patient might have been developing some signs of sepsis yesterday as I did notice upon review of VS from yesterday, patient became hypotensive at one point to 76/40 at 12 PM, 98/44 at 13:05, 101/58 at 15:01, and 103/54 at 1600. Today, BP was 132/96 and is much improved. Patient also has become tachycardic since yesterday with HR's running from 101-110. Has also remained tachypneic with RR running into 20s-25. Will continue to monitor. Is receiving lactated ringer's IVF 1000 mL @ 50 mLs/hr. 05/25: Well controlled. Continue to monitor. 05/24/18: Remains well controlled 05/23: Stable and controlled. 05/22: Stable and controlled. BP was 124/60 today. 05/20: Stable and controlled. BP 140/69 today. 05/18: stable and controlled. Not on any antihypertensives. 05/17: BP well controlled without any antihypertensives. At this time, will hold any antihypertensives. His BP is well controlled at this time. Continue current regimen. (10) Hypomagnesemia Status: Resolved Problem Text: 05/27: Mg level WNL at 2.2. 05/26: Mg level was low at 1.6 today. Have replaced with Mg Sulfate Runs x 2. Will recheck Mg level at 1700. Plan/VTE VTE Prophylaxis Ordered?: Yes (Enoxaparin 40 mg SC, TEDs and Sequentials.) Plan/Urinary Catheter Urinary Catheter: D/C Santacruz Reason for insertion/continuin: Critical Pt monitoring Plan IVF: Decrease Disposition Pending clinical improvement. VS, I&O, 24H, Fishbone Vital Signs/I&O Vital Signs Date Time Temp Pulse Resp B/P (MAP) Pulse Ox O2 Delivery O2 Flow Rate FiO2 06/03/18 14:00 99.4 89 18 130/66 (87) 94 Room Air 06/01/18 04:35 2.0 I&O- Last 24 Hours up to 6 AM 06/03/18 06:00 Intake Total 1610 ml Output Total 1550 ml Balance 60 ml Laboratory Data 24H LABS Laboratory Tests 2 06/03/18 06:06: Immature Granulocyte % (Auto) , Nucleated Red Blood Cells % (auto) 0.0, Neutrophils 75, Band Neutrophils 1, Lymphocytes (Manual) 15L, Monocytes (Manual) 1, Eosinophils (Manual) 6H, Myelocytes 1H, Atypical Lymphocytes 1, Platelet Es timate NORMAL, Hypochromasia 1+, Anisocytosis 1+, Microcytosis 1+, Anion Gap 7L, Glomerular Filtration Rate > 60.0, Blood Urea Nitrogen 10, Creatinine 0.76, Sodium Level 140, Potassium Level 3.6, Chloride Level 106, Carbon Dioxide Level 27, Calcium Level 8.0L CBC/BMP Laboratory Tests 06/03/18 06:06 Red Blood Count 2.82 L, Mean Corpuscular Volume 90.8, Mean Corpuscular Hemogl obin 30.1, Mean Corpuscular Hemoglobin Concent 33.2, Red Cell Distribution Width 13.2, Calcium Level 8.0 L Microbiology Microbiology 05/26/18 Blood Culture - Final, Complete NO GROWTH AFTER 5 DAYS 05/26/18 Blood Culture - Final, Complete NO GROWTH AFTER 5 DAYS 05/26/18 Gram Stain - Final, Complete 05/26/18 Sputum Culture - Final, Complete Klebsiella Pneumoniae 05/28/18 Catheter Tip Culture - Final, Complete BERYL JO DO Jun 03, 2018 15:03
[2018-06-03 18:00] VITALS: BP 142/72
[2018-06-03 22:00] VITALS: BP 146/70
[2018-06-04] MEDS: MEROPENEM INJ 1 GM in APPROPRIATE DILUENT 1 EA IV SCH ×2 (05:50→17:41)
[2018-06-04] MEDS: SLF 3 ML SYR IV SCH ×3 (05:50→21:28)
[2018-06-04 06:00] VITALS: BP 140/69
[2018-06-04 06:16] LABS: BASO % 0.3 % (0.0-1.0); EOS # 0.3 10^3/uL (0.0-0.50); EOS % 2.7 % (0.0-3.0); HEMATOCRIT 24.9 % (42.0-52.0); HEMOGLOBIN 8.2 g/dl (13.5-17.5); LYMPH # 1.7 10^3/uL (1.5-4.5); LYMPH % 14.7 % (24.0-44.0); MEAN CORPUSCULAR HEMOGLOBIN 29.6 pg (27.0-33.0); MEAN CORPUSCULAR HGB CONC 32.9 g/dl (32.0-36.5); MEAN CORPUSCULAR VOLUME 89.9 fl (80.0-96.0); MONO # 0.5 10^3/uL (0.0-0.8); MONO % 4.6 % (0.0-5.0); NEUTROPHILS # 8.6 10^3/uL (1.8-7.7); NEUTROPHILS % 73.1 % (36.0-66.0); PLATELET COUNT, AUTOMATED 336 10^3/uL (150-450); RED BLOOD COUNT 2.77 10^6/uL (4.30-6.10); WHITE BLOOD COUNT 11.8 10^3/uL (4.0-10.0)
[2018-06-04 06:44] LABS: BLOOD UREA NITROGEN 10 MG/DL (7-18); CALCIUM LEVEL 7.9 MG/DL (8.8-10.2); CARBON DIOXIDE LEVEL 28 MEQ/L (21-32); CHLORIDE LEVEL 103 MEQ/L (98-107); CREATININE FOR GFR 0.71 MG/DL (0.70-1.30); GLOMERULAR FILTRATION RATE > 60.0 (>42); GLUCOSE, FASTING 94 MG/DL (70-100); POTASSIUM SERUM 3.6 MEQ/L (3.5-5.1); SODIUM LEVEL 138 MEQ/L (136-145)
[2018-06-04] MEDS: IPRATROPIUM 0.5MG/ALBUTEROL 2.5MG INH SOL UD 3ML (DUONEB)(J7620) NEB SCH ×4 (07:39→20:00)
--- NOTE | 2018-06-04 09:05 | IPNPDOC ---
Text Note Date of Service The patient was seen on 06/04/18. NOTE No acute events overnight. Denies nausea, emesis, fevers, or pains. He has had good PO intake, and is having good ostomy output. No complaints of weakness. Tolerating the soft diet without any problems. VSSAF UOP - 1700 NAD abd - soft, nt, nd, incisions c/d/i, ostomy in RLQ is pink and patent with stool in bag labs - below wbc - 9.8>12.2>11.8 A) 78y/o male s/p ex lap with extensive CARL and SBR P) reg diet ambulate PT Jose Rafael Fernández DO VS,Fishbone, I+O VS, Fishbone, I+O Laboratory Tests 06/04/18 05:46 Red Blood Count 2.77 L, Mean Corpuscular Volume 89.9, Mean Corpuscular Hemoglobin 29.6, Mean Corpuscular Hemoglobin Concent 32.9, Red Cell Distribution Width 12.8, Neutrophils (%) (Auto) 73.1 H, Lymphocytes (%) (Auto) 14.7 L, Monocytes (%) (Auto) 4.6, Eosinophils (%) (Auto) 2.7, Basophils (%) (Auto) 0.3, Neutrophils # (Auto) 8.6 H, Lymphocytes # (Auto) 1.7, Monocytes # (Auto) 0.5, Eosinophils # (Auto) 0.3, Basophils # (Auto) 0.0, Calcium Level 7.9 L Vital Signs Date Time Temp Pulse Resp B/P (MAP) Pulse Ox O2 Delivery O2 Flow Rate FiO2 06/04/18 06:00 97.7 62 20 140/69 (92) 96 Room Air 06/01/18 04:35 2.0 I&O- Last 24 Hours up to 6 AM 06/04/18 06:00 Intake Total 1930 ml Output Total 1150 ml Balance 780 ml LESVIA FERNÁNDEZ DO Jun 04, 2018 09:05
[2018-06-04] MEDS: ACYCLOVIR 5% OINT 15GM TOP SCH ×4 (09:40→21:28)
[2018-06-04] MEDS: guaiFENesin ER 600 MG TAB PO SCH ×2 (09:40→21:27)
[2018-06-04] MEDS: ENOXAPARIN 40 MG/0.4 ML SYRINGE (J1650) SC SCH (09:40)
[2018-06-04] MEDS: PANTOPRAZOLE 40MG TAB (PROTONIX) PO SCH (09:41)
[2018-06-04] MEDS: amLODIPine 5 MG TAB PO SCH (09:41)
[2018-06-04] MEDS: NORCO, ANEXSIA 5/325MG TABLET (HYDROcodone/ACETAMINOPHEN) PO PRN ×2 (09:41→21:27)
[2018-06-04 10:00] VITALS: BP 139/72
[2018-06-04 14:00] VITALS: BP 142/72
[2018-06-04 22:00] VITALS: BP 147/78
[2018-06-05 02:00] VITALS: BP 154/79
[2018-06-05] MEDS: NORCO, ANEXSIA 5/325MG TABLET (HYDROcodone/ACETAMINOPHEN) PO PRN (02:18)
[2018-06-05] MEDS: SIMETHICONE 80 MG CHEW TAB PO PRN (02:18)
[2018-06-05 06:00] VITALS: BP 146/74
[2018-06-05] MEDS: MEROPENEM INJ 1 GM in APPROPRIATE DILUENT 1 EA IV SCH (06:20)
[2018-06-05] MEDS: SLF 3 ML SYR IV SCH ×3 (06:20→20:15)
[2018-06-05] MEDS: IPRATROPIUM 0.5MG/ALBUTEROL 2.5MG INH SOL UD 3ML (DUONEB)(J7620) NEB SCH ×3 (07:23→15:21)
[2018-06-05] MEDS: PANTOPRAZOLE 40MG TAB (PROTONIX) PO SCH (09:04)
[2018-06-05] MEDS: ENOXAPARIN 40 MG/0.4 ML SYRINGE (J1650) SC SCH (09:06)
[2018-06-05] MEDS: amLODIPine 5 MG TAB PO SCH (09:06)
[2018-06-05] MEDS: guaiFENesin ER 600 MG TAB PO SCH ×2 (09:06→20:15)
[2018-06-05] MEDS: ACYCLOVIR 5% OINT 15GM TOP SCH ×4 (09:07→20:15)
[2018-06-05 10:00] VITALS: BP 135/72
[2018-06-05 10:37] LABS: BASO % 0.3 % (0.0-1.0); EOS # 0.2 10^3/uL (0.0-0.50); EOS % 1.9 % (0.0-3.0); HEMATOCRIT 26.7 % (42.0-52.0); HEMOGLOBIN 8.9 g/dl (13.5-17.5); LYMPH # 1.5 10^3/uL (1.5-4.5); LYMPH % 12.8 % (24.0-44.0); MEAN CORPUSCULAR HEMOGLOBIN 30.1 pg (27.0-33.0); MEAN CORPUSCULAR HGB CONC 33.3 g/dl (32.0-36.5); MEAN CORPUSCULAR VOLUME 90.2 fl (80.0-96.0); MONO # 0.5 10^3/uL (0.0-0.8); MONO % 4.6 % (0.0-5.0); NEUTROPHILS # 9.2 10^3/uL (1.8-7.7); NEUTROPHILS % 77.9 % (36.0-66.0); PLATELET COUNT, AUTOMATED 363 10^3/uL (150-450); RED BLOOD COUNT 2.96 10^6/uL (4.30-6.10); WHITE BLOOD COUNT 11.8 10^3/uL (4.0-10.0)
[2018-06-05 10:48] LABS: BLOOD UREA NITROGEN 12 MG/DL (7-18); CALCIUM LEVEL 8.4 MG/DL (8.8-10.2); CARBON DIOXIDE LEVEL 30 MEQ/L (21-32); CHLORIDE LEVEL 100 MEQ/L (98-107); CREATININE FOR GFR 0.71 MG/DL (0.70-1.30); GLOMERULAR FILTRATION RATE > 60.0 (>42); GLUCOSE, FASTING 110 MG/DL (70-100); POTASSIUM SERUM 3.7 MEQ/L (3.5-5.1); SODIUM LEVEL 136 MEQ/L (136-145)
--- NOTE | 2018-06-05 11:49 | IPNPDOC ---
Subjective Date Seen The patient was seen on 06/05/18. Subjective Chief Complaint/HPI Patient was seen and examined at bedside today. Denies fevers, chills, chest pain, shortness of breath, abdominal pain. Admits that overnight his abdomen felt a bit distended and he felt gassy. Reports gas-ex did help him. Also, reports that yesterday his diet was a bit too advanced for him. He reverted back to cream of wheat again today. Denies any other acute complaints today. Is having good output in his ostomy. General: Reports: Normal Appetite Constitutional: Denies: Chills, Fever ENT: Denies: Head Aches Skin: Denies: Rash Pulmonary: Denies: Dyspnea, Cough (but admits to mucus that he coughs up at times.) Cardiovascular: Denies: Chest Pain Gastrointestinal: Denies: Nausea, Vomiting, Abdominal Pain, Diarrhea, Constipation Genitourinary: Denies: Dysuria Hematologic: Denies: Bruising Endocrine: Denies: Heat Intolerance, Cold Intolerance Musculoskeletal: Denies: Joint Pain, Muscle Pain Neurological: Denies: Weakness, Confusion Psych: Reports: Mood Normal Objective Physical Examination General Exam: Positive: Alert, Cooperative, No Acute Distress, Other (His voice is very soft when speaking but volume has improved from prior.) Eye Exam: Positive: Conjunctiva & lids normal; Negative: Sclera icteric ENT Exam: Positive: Atraumatic Neck Exam: Positive: Supple; Negative: JVD Chest Exam: Positive: Clear to auscultation, Diminished (in all lung dong generally); Negative: Normal air movement (decreased), Rales, Rhonchi, Wheezing Heart Exam: Positive: Rate Normal, Regular Rhythm, Normal S1, Normal S2; Negative: Murmurs Abdomen Exam: Positive: Normal bowel sounds, Soft, Tenderness (Still tenderness to mid-abdominal region--seems appropriate and mild compared to prior. Abdomen nondistended. Abdominal bandage at incisonal site not stained. ), Other (il eostomy site with output still; ) Extremity Exam: Negative: Clubbing, Cyanosis, Edema Skin Exam: Positive: Nl turgor and temperature; Negative: Rash Neuro Exam: Positive: Normal Speech Psych Exam: Positive: Mood NL (euthymic affect.), Oriented x 3 Assessment /Plan Problems (1) Status post exploratory laparotomy Status: Acute Response to Treatment: Stable Problem Text: 06/05: POD #20. Has been advanced to a regular diet. However, he reported that he had some trouble with his diet yesterday. He ate cream of wheat and reverted back to that today. States that it suited him more today. Continue soft diet for now and advance diet as tolerated. Patient also reported that he felt a bit distended last night and was also gassy. Simethicone was started which seems to be helping as per patient. Continue management as per Gen. surgery. 06/03: POD #18. Has been advanced to a soft diet. Was in the process of eating cheerios cereal this AM. Spoke to Dr. Fernández to consider d/ce'ing santacruz catheter and we were on the same page. He already d/ce'd it. Rest of management as per General Surgery. 06/02: POD #17. Still on full liquids diet now. Tolerated an entire bowel of cream of wheat again today. Recommend for General Surgery to look into considering d/ce'ing santacruz catheter. Patient is having good urine output. May consider advancing diet to regular tomorrow. Management per General Surgery. Will also transfer patient from [facility] to [facility] and d/c telemetry as patient has been consistently sinus rhythm or sinus tach. 06/01: POD # 16. On full liquids diet now. Management per General Surgery. NG tube is still out and santacruz is still in. 05/29 Post- op D13 Mgmt per GS. On clear liquid diet. 05/28: Post-op day #12. Abdominal exam similar to yesterday, slightly more bowel sounds noticed. finisher card tender to palpation of RUQ and RLQ with mid- abdominal tenderness. Continue PT. Surgery is managing the pain control. 05/27: Post-op day #11. Abdominal exam similar to yesterday. finisher card tender to palpation of RUQ and RLQ with mid-abdominal tenderness. Continue PT. Continue pain control, which seems controlled this AM. 05/26: Post-op day #10. Abdomen less distended today and patient reports less bloating and abdominal pain today subjectively. However, cone tender to palpation of RUQ and RLQ as well as mid-abdominal region. Patient, still has ileus and I have encouraged PT to work with patient to continue to help him. Pain control as per General Surgery. I see that they have added toradol to current pain regimen. Pain seems to be controlled enough today. 05/25: Post-op day #9. NG tube has been placed back by Dr. Ontiveros. Still has output in ileostomy. According to CT scan of chest/abdomen/pelvis, it seems patient still has ileus and is unable to get rid of the fluid in his abdomen and bladder. Have ordered nursing to place santacruz back in to help relieve fluid from pelvic region/ tract. Likely recovery will be a very slow course and ileus will take longer time to reverse. Still encourage working with PT to help with ileus. Continue management as per General Surgery. Pain control as per General Surgery. 05/24/18: Post-op day #8. Patient is tolerating full liquid diet. Good output in his ileostomy. General surgery still following. He continues to work with PT 05/23: Post-op day #7. NG tube was discontinued today. Is still having good ileostomy output and is still on TPN. Abdomen appropriately slightly tender to palpation in mid-abdominal region today at incisional site. Still with hypoactive bowel sounds. 05/22: Post-op day #6. Management as per General Surgery. Still on TPN and has NG tube that is still having output. Ileostomy output is still good. Abdomen nontender to palpation today, but still with hypoactive bowel sounds. Will reorder PT/OT today. 05/20: Is post-operative day #4. Still on TPN with K and Mg replacement as per General Surgery. Has increased output from ileostomy site now which has improved. Abdomen still distended but not as tender to palpation--improving. Still hypoactive bowel sounds on auscultation. 05/19 - per surgery On TPN 05/18: Post-operative day #2. Patient on TPN. Minimal output from ileostomy site. Will likely have prolonged course of ileus. Still diffusely tender to palpation of abdomen, but is appropriate and soft. Important to rule out postoperative fever as patient has been having fevers with Tmax of 101.2 yesterday at noontime. Consider UA. CXR from today showed: There is pleuroparenchymal opacity again noted in the left base obscuring the left hemidiaphragm as before. There is slight haziness in the right base which may reflect a small amount of right pleural fluid. Will watch for signs of pn eumonia. Currently on day 5 of zosyn. 05/17: Patient is status-post exploratory laparotomy, lysis of adhesions, repair of enterotomy and serosal tears, release of bowel obstruction post-op day #1. A pparently, surgery took around 7 hours and patient is in need of ventilator support at this time post-surgery. General surgery is following and managing the SBO and Acid Operator is consulted to help further manage respiratory support. (2) SBO (small bowel obstruction) Status: Acute Response to Treatment: Improving Problem Text: 06/05: POD #20. Please see above. Continue management as per Gen. surgery. 06/03: POD #18: Advanced to soft diet. Will see if tolerates this. Management per General Surgery. 06/02: POD #17. Tolerating full liquids diet still. Consider advancing diet tomorrow. Dietary consult in place as well. Rest of management up to General Surgery. 06/01: POD #16. Is now without NG tube and tolerating a full liquids diet. Had cream of wheat today without problems, nausea, vomiting. Continue management as per General Surgery. Have encouraged patient to continue to work with PT as much as possible and get up and out of bed. Have encouraged patient to intake as much nutrition as he can tolerate for energy. 05/28: POD #12. He was able to go without an NG tube today, and tried a few small things, but found out that drinking soda still is probably not a good idea. 05/27: Post-op day #11: Continue to encourage PT. OT and ARU consult ordered yesterday. Management as per General Surgery: continue NG tube decompression. Keep NPO for now. Need to confirm whether patient needs TPN ordered now however for nutritional support. 05/26: Post-op day #10: Management as per General Surgery. Still suffering from ileus as per yesterday's CT abd/pelvis scan. Have encouraged PT to work with patient more to help with ileus. Have also ordered OT and ARU consult as patient was able to do well with PT yesterday. Please see HPI for details. 05/25: Post-op day #9: Management as per General Surgery. 05/24/18: Post-op day #8. Management per General surgery 05/23: Post-Op day #7. Management as per General Surgery. Have encouraged PT/OT and ordered this yesterday so that it can help with patient's post-op ileus. 05/22: Post-Op day #6. Management as per General Surgery. 05/20: Management as per General Surgery, now Dr. Lloyd Valente. Patient is post- op day #4. Spoke briefly to Dr. Valente who states that NG tube will not be removed today. Patient is still having a moderate amount of NG tube output, and it will still take some more time to decompress bowel. 05/18: Dr. Ontiveros of general surgery following and managing. Post-op day #2. 05/17: Status-post exp laparotomy, lysis of adhesions, and release of bowel obstruction post-operative day 1. Is on epidural fentanyl for post-operative pain control. TPN will be started by Dr. Ontiveros today and there is anticipated prolonged course of ileus until return of normal bowel function. This problem is being managed by Dr. Ontiveros of surgery. He seems to be making some improvement with the NG tube drainage, but is still pretty uncomfortable. Will defer to surgery for further management of this problem. (3) Klebsiella pneumoniae pneumonia Status: Acute Response to Treatment: Improving Discussed With: Patient, Family with Pt Consent Problem Specific Plan: Consult Specialist Problem Text: 06/05: On day #11 of meropenem. White blood cell count is stable at 11.8 today. Patient's status has clinically improved. Continue meropenem and monitor CBC. Continue to monitor clinically for now. 06/03: On day #9 of meropenem alone. WBC unfortunately went back up today at 12.2 (H) from 9.8 yesterday. If WBC continues to increase, patient may need more imaging for further evaluation of another source of infection. Last CXR was 8 days ago, last abdominal x-ray was 4 days ago, last CT abd/pelvis was 9 days ago. Consider restarting patient on vancomycin if WBC climbs as patient was d/ce'd on this 2 days ago. 06/02: On day #8 of meropenem. Vancomycin d/ce'd yesterday--looks like as per Dr. Wilkins. Will continue meropenem as this does cover klebsiella. Since patient is clinically improving, will not repeat CXR at this time. Blood cx so far nega tive. Catheter tip cx show no growth aerobically. WBC is WNL still at 9.8 which is encouraging. Patient is feeling like he can breathe better as well. Denies much of a cough but still has it with mucous production. Continue to monitor CBC and clinically. 06/01: On day # 7 of meropenem and day # [address] Mcdaniel wanted to do a CXR to check up on pneumonia. However, I did not see this done or ordered. I will plan on ordering this after talking to attending physician if he recommends it. WBC down to WNL at 10 today. Continue current antibiotic regimen. Patient slowly starting to look improved. 05/29 Meropenam D4, prev on Zosyn, resp status improved, slight bump in WBC today, monitor. 05/28 The sputum cx (that was taken while the patient was on Zosyn) grew Klebsiella pneumoniae which had intermediate sensitivity (only) for the Zosyn. He was changed to meropenem two days ago and has been feeling better since then. Continue meropenem for now. (4) Low hemoglobin Status: Acute Problem Text: 06/05: Hemoglobin stable today at 8.9 from 8.2 yesterday. Continue to monitor CBC. 06/03: Hgb stable at 8.5 today. Continue to monitor CBC. 06/02: Patient's hemoglobin went up to 8.6 today. Stable. Does not appear patient actually got any RBC transfusion yesterday. Will continue to monitor CBC. 06/01: Patient's Hgb was 8.2 today and 8.2 yesterday. It is stable. However, he is getting 1 unit of PRBC transfusion today as per General Surgery. Will continue to monitor CBC. Patient very weak and fatigued appearing. May benefit from this transfusion. No evidence of GI bleed thus far. 05/28: His Hb has been relatively stable since the transfusion. This is good news, but we continue to need to look closely at his Hb to make sure it doesn't acutely drop again. 05/27: Hgb dropped down to 6.7* yesterday at 18:25 unfortunately. Patient had to be transfused 2 units PRBCs and Hgb this AM was 8.2. Will recheck H&H next at 1643. Will transfuse as necessary. Continue to monitor H&H PRN and CBC daily. Drop in Hgb etiology not identified as of yet. DDx includes gastric ulcer, intraabdominal process post-surgically, GI bleed somewhere else, PUD, vs. heparin anticoagulation patient is on etc. 05/26: Hgb unfortunately dropped down to 7.5 today from 9.2 yesterday which is a drastic drop. I have ordered a repeat H&H at 1700 today. 05/25: Hgb was 9.2 today which is encouraging. Continue to monitor CBC. 05/24/18: Hgb 8.1 today. We will continue to monitor 05/23: Patient's Hgb last night was 7.9 and did not drop below 7.9 from yesterday AM. This morning, Hgb was 8.4. It is thus stable. We will continue to monitor his CBC and hold off on transfusion for now. 05/22: Patient's Hgb dropped down to 7.9. Will need to keep an eye on this and will recheck CBC in 12 hours from the one performed earlier today: at 1722. Nursing to call provider if repeat CBC shows Hgb <7.7. (5) Acute kidney injury Status: Resolved Problem Text: 06/05: Renal function within normal limits today. Continue to monitor BMP. 06/03: Renal fx WNL today. 06/02: Renal fx still WNL. 06/01: Renal fx is WNL now and AXEL has indeed resolved. 05/27: Renal fx improving. BUN 46 (H) and Cr has trended down to 1.64 (H) today from 1.91 (H) yesterday. Vanc trough level today was WNL at 19.6. 05/26: BUN and Cr unfortunately have trended up and were 45 and 1.91 respectively from 23 and 1.91 yesterday. I suspect this may have to do with possible supratherapeutic dose of vancomycin as the vanc trough level was elevated today at 32.1. Will speak to attending physician and possibly talk to pharmacy regarding adjusting dose for renally dosing the vanco. 05/25: BUN 23 and Cr 1.06. Kidney fx stable. GFR >60. Continue to monitor. 05/24/18:BUN/Cre 22/1.09, GFR > 60, remains stable 05/23: Cr 1.18 and stable. Continue monitoring via BMP. On lasix for diuresis. 05/22: Creatinine stable. Monitor renal fx due to risk of kidney injury from diuresis with lasix. 05/20: Creatinine continuing to improve and is down to 1.13 from 1.25 yesterday. 05/19 - Crea continues to improve. Na+ 151, K+ low this am Surgery managing IVF and electrolyte replacement 05/18: Cr improved today to 1.52 from 1.60 yesterday. Continue to monitor BMP. Is getting IV hydration and TPN which is a concern for 3rd spacing of fluid. Does have trace edema in bilateral lower extremities. Dr. Hays was recommending to try some lasix. 05/17: Creatinine bumped up to 1.60 today with GFR lower at 44.7 from yesterday and is likely from severe dehydration from bowel obstruction. Will continue to monitor BMP and continue IV hydration as necessary. His BUN is down a little, but his creatinine is up. Overall his GFR is down a little more today. Will continue the IV hydration and monitor. I believe that he was significantly dehydrated by the time he was admitted. (6) Hypertension Status: Chronic Response to Treatment: Stable Problem Specific Plan: Monitor Clinically Problem Text: 06/05: Blood pressure stable and was 146/74 today. Continue to monitor. 06/03: BP stable and was 146/75 this AM. 06/02: BP stable and was 149/71 today. 06/01: BP is stable and controlled. No hypotensive episodes overnight. Continue to monitor. Encourage PO hydration. Not on any IVF any longer. NG tube is out. 05/27: BP well controlled. No other episodes of hypotension noted yesterday. Continue to monitor. Lactated Ringer's IVF still running @ 50 mLs/hr. 05/26: BP well controlled today at 132/96. However, I was concerned patient might have been developing some signs of sepsis yesterday as I did notice upon review of VS from yesterday, patient became hypotensive at one point to 76/40 at 12 PM, 98/44 at 13:05, 101/58 at 15:01, and 103/54 at 1600. Today, BP was 132/96 and is much improved. Patient also has become tachycardic since yesterday with HR's running from 101-110. Has also remained tachypneic with RR running into 20s-25. Will continue to monitor. Is receiving lactated ringer's IVF 1000 mL @ 50 mLs/hr. 05/25: Well controlled. Continue to monitor. 05/24/18: Remains well controlled 05/23: Stable and controlled. 05/22: Stable and controlled. BP was 124/60 today. 05/20: Stable and controlled. BP 140/69 today. 05/18: stable and controlled. Not on any antihypertensives. 05/17: BP well controlled without any antihypertensives. At this time, will hold any antihypertensives. His BP is well controlled at this time. Continue current regimen. (7) Physical deconditioning Status: Acute Problem Text: 06/05: Have encouraged patient to continue to work with physical therapy for strengthening and mobility. 06/03: Strongly encouraged patient to continue to work with PT for physical strengthening and mobility. 06/02: Patient needs to continue to work with PT for physical strengthening and mobility. Transferring to [facility] as there are no acute issues or need for patient to be on PCU any longer. Will d/c telemetry as well. (8) Aspiration pneumonitis Status: Acute Problem Text: 05/28: It isn't certain if he has an aspiration pneumonitis or not, but he does have K. pneumoniae pneumonia and the treatment can be the same for these, especially guided by a sensitivity. 05/27: Zosyn d/ce'd yesterday. Added meropenem 1 gm q12h IV and is day #2 of [address] per Dr. Wilkins's recommendations from ID. Day #7 of Vancomycin. WBC encouragingly has trended back down to normal at 9.6. However, patient did spike a temperature of 100.5 at 23:59 last night. Will continue to monitor labs and clinically. Dr. Wilkins has ordered UA (patient has santacruz catheter), new blood cx x 2, and gram stain & sputum cx yesterday. UA was unremarkable. Blood cx are pending x 2. Sputum cx and gram stain show many WBCs, few epithelial cells, moderate gram (-) rods, and few gram (+) cocci in chains. CXR performed yesterday showed bibasilar pleuroparenchymal opacities. 05/26: Day #13 Zosyn and Day #6 of Vancomycin. WBC encouragingly is trending down and was down to 14.6 today. Will consult ID for any possible further recommendations for Dr. Wilkins. Has remained afebrile. 05/25: Day #12 Zosyn and Day #5 of Vancomycin. WBC is unfortunately trending up and up to 17.6 today. Suspect that patient has another source of infection other than abdominal abscess that may not be clear to us right now. Will consider ID consult with Dr. Wilkins if WBC goes up tomorrow. Afebrile all throughout 05/24/18 as well. 05/24/18: Remains on Zosyn (started on 05/14/18) and on Vancomycin (started on 05/21/19). WBC 11.2, T-max of 102.9 at 23:59 on 05/23/18. BC remain negative after 72 hours. Reports continued cough with sputum production. I will discuss with attending about repeat Chest x-ray and/or sputum culture 05/23: Day #10 of Zosyn and Day #3 of Vancomycin. WBC trending down to 10.5. Tmax was 100.7 at midnight last night. Currently, patient has been afebrile since. 05/22: Post-operative fevers likely secondary to aspiration pneumonia vs. multifocal pneumonia (HCAP). Day #9 of Zosyn and was begun on Vancomycin yesterday for more broad spectrum coverage. WBC trending down to 12.2. Tmax was 100.1 at midnight. Has been afebrile since. CT chest on 05/20 had shown bilateral lower lobe consolidation and atelectasis, persistent R middle lobe multifactorial patchy densities, new mild patchy ground glass opacities within both upper lobes, diffuse infiltrates and small pleural effusions. 05/20: Day #7 Zosyn. WBC trending down from 16.1 to 11.8. Patient has been afebrile since 2 PM yesterday and satting in the 90s on room air. CXR today shows no significant change, bibasilar opacities and cardiomegaly status-quo. Blood cx show NGTD x 24 hours. 05/19 D#6 Zosyn. WBC up slightly B/C and f/u CXR pending - ordered by pulmonary Resp status improve - extubated on [facility] 05/18: Day #5 of zosyn. CXR was similar to prior. Please see under assessment #1. Continue to monitor clinically. 05/17: Likely secondary from reflux of gastric contents/secretions from NG tube. Continue zosyn. Day #4. (9) Acute respiratory failure with hypoxia Status: Resolved Response to Treatment: Stable Problem Text: 05/28: It is likely that these acute respiratory events were the related to the K pneumoniae pneumonia. Will continue to monitor. 05/27: O2 saturation is 99% on 2L NC. May be able to wean down to 1L via NC today. Will plan on placing nursing order for this. 05/26: O2 saturation has remained in the low 90s at 2L NC. Will consider increasing O2 to 3 L. Will discuss with attending physician for need for this. Patient does not seem to have a prior hx of COPD however. 05/25: Stable O2 saturations in the 90s on 2L NC. 05/24/18: Remains on O2 vial nasal cannula to maintain saturations of >90% 05/23: Patient's O2 saturation was 93% on 2L nasal cannula. Have instructed staff to titrate patient's O2 above 90%, but not too high so as to avoid oxygen toxicity. Patient is still having net negative diuresis of 2.831 liters yesterday and -1.4 liters today. Is having good urine output: 1.99 mL/kg/hr. Weight is down from 67.9 kg to 66.4 kg today. Still on lasix 40 mg q6h IV. His lungs sound much clearer to me today. I believe his respiratory status has clinically improved from prior. Will continue santacruz for now to monitor net negative diuresis until this is complete. Also has epidural for pain control. 05/22: Hypoxia secondary to pulmonary edema secondary to diastolic CHF/volume overload. Patient had net negative diuresis of at least 2 liters yesterday. His O2 saturation has improved and he is requiring less oxygen than 2 days ago. He is now on 2 liters O2 via nasal cannula from 6 liters previously. 05/20: Improved. Is satting in the 90s on room air without significant work of breathing. Is in NAD. Still mildly tachypneic with RR in the low 20s. 05/19 - successfully tolerated extubation - on NC today - Per Pulmonary 05/18: Trial of weaning off ventilator was not predictive of success for extubation. Dr. Hays will be performing another trial today. 05/17: Patient went into acute hypoxic respiratory failure status-post surgery yesterday. Remained intubated and was placed on mechanical ventilation. Dr. Hays will be trying to wean patient to assess weather his SBI will go to <104 and if patient can take deep and slow breaths which would indicate success if patient were to be extubated. She will determine this today. He may be able to be extubated either today or tomorrow. (10) Hypomagnesemia Status: Resolved Problem Text: 05/27: Mg level WNL at 2.2. 05/26: Mg level was low at 1.6 today. Have replaced with Mg Sulfate Runs x 2. Will recheck Mg level at 1700. Plan/VTE VTE Prophylaxis Ordered?: Yes (Enoxaparin 40 mg SC, TEDs and Sequentials.) Plan/Urinary Catheter Urinary Catheter: D/C Santacruz Reason for insertion/continuin: Critical Pt monitoring Plan IVF: Decrease Disposition Pending clinical improvement. Continue PT/OT. Dietary consult in place. VS, I&O, 24H, [facility] Vital Signs/I&O Vital Signs Date Time Temp Pulse Resp B/P (MAP) Pulse Ox O2 Delivery O2 Flow Rate FiO2 06/05/18 10:00 99.3 87 18 135/72 (93) 94 Room Air 06/01/18 04:35 2.0 I&O- Last 24 Hours up to 6 AM 06/05/18 05:59 Intake Total 1490 ml Output Total 1100 ml Balance 390 ml Laboratory Data 24H LABS Laboratory Tests 2 06/05/18 09:53: Anion Gap 6L, Glomerular Filtration Rate > 60.0, Blood Urea Nitrogen 12, Creatinine 0.71, Sodium Level 136, Potassium Level 3.7, Chloride Level 100, Carbon Dioxide Level 30, Calcium Level 8.4L 06/05/18 09:54: Immature Granulocyte % (Auto) 2.5, White Blood Count 11.8H, Red Blood Count 2.96L, Hemoglobin 8.9L, Hematocrit 26.7L, Mean Corpuscular Volume 90.2, Mean Corpuscular Hemoglobin 30.1, Mean Corpuscular Hemoglobin Concent 33.3, Red Cell Distribution Width 13.1, Platelet Count 363, Neutrophils (%) (Auto) 77.9H, Lymphocytes (%) (Auto) 12.8L, Monocytes (%) (Auto) 4.6, Eosinophils (%) (Auto) 1.9, Basophils (%) (Auto) 0.3, Neutrophils # (Auto) 9.2H, Lymphocytes # (Auto) 1.5, Monocytes # (Auto) 0.5, Eosinophils # (Auto) 0.2, Basophils # (Auto) 0.0, Nucleated Red Blood Cells % (auto) 0.0 CBC/BMP Laboratory Tests 06/05/18 09:53 Calcium Level 8.4 L 06/05/18 09:54 Red Blood Count 2.96 L, Mean Corpuscular Volume 90.2, Mean Corpuscular Hemoglobin 30.1, Mean Corpuscular Hemoglobin Concent 33.3, Red Cell Distribution Width 13.1, Neutrophils (%) (Auto) 77.9 H, Lymphocytes (%) (Auto) 12.8 L, Monocytes (%) (Auto) 4.6, Eosinophils (%) (Auto) 1.9, Basophils (%) (Auto) 0.3, Neutrophils # (Auto) 9.2 H, Lymphocytes # (Auto) 1.5, Monocytes # (Auto) 0.5, Eosinophils # (Auto) 0.2, Basophils # (Auto) 0.0 Microbiology Microbiology 05/26/18 Blood Culture - Final, Complete NO GROWTH AFTER 5 DAYS 05/26/18 Blood Culture - Final, Complete NO GROWTH AFTER 5 DAYS 05/26/18 Gram Stain - Final, Complete 05/26/18 Sputum Culture - Final, Complete Klebsiella Pneumoniae 05/28/18 Catheter Tip Culture - Final, Complete GME ATTESTATION GME ATTESTATION My faculty preceptor for this patient encounter was Dr. Nancy Middleton, and was physically present during the encounter and was fully available. All aspects of the patient interview, examination, medical decision making process, and medical care plan development were reviewed and approved by the faculty p receptor. The faculty preceptor is aware and concurs with the plan as stated in the body of this note and will attest to such by his/her cosignature. BERYL JO DO Jun 05, 2018 11:49
[2018-06-05 14:00] VITALS: BP 136/72
[2018-06-05 18:00] VITALS: BP 138/73
[2018-06-05 22:00] VITALS: BP 153/80
[2018-06-06 02:00] VITALS: BP 156/77
[2018-06-06] MEDS: SLF 3 ML SYR IV SCH ×3 (05:21→20:24)
[2018-06-06] MEDS: NORCO, ANEXSIA 5/325MG TABLET (HYDROcodone/ACETAMINOPHEN) PO PRN ×2 (05:21→20:23)
[2018-06-06 06:00] VITALS: BP 160/81
[2018-06-06 06:25] LABS: BASO # 0.1 10^3/uL (0.0-0.2); BASO % 0.4 % (0.0-1.0); EOS # 0.2 10^3/uL (0.0-0.50); EOS % 2.1 % (0.0-3.0); HEMATOCRIT 25.7 % (42.0-52.0); HEMOGLOBIN 8.3 g/dl (13.5-17.5); LYMPH # 1.6 10^3/uL (1.5-4.5); MEAN CORPUSCULAR HEMOGLOBIN 29.3 pg (27.0-33.0); MEAN CORPUSCULAR HGB CONC 32.3 g/dl (32.0-36.5); MEAN CORPUSCULAR VOLUME 90.8 fl (80.0-96.0); MONO # 0.7 10^3/uL (0.0-0.8); NEUTROPHILS # 8.6 10^3/uL (1.8-7.7); NEUTROPHILS % 75.5 % (36.0-66.0); PLATELET COUNT, AUTOMATED 345 10^3/uL (150-450); RED BLOOD COUNT 2.83 10^6/uL (4.30-6.10); WHITE BLOOD COUNT 11.4 10^3/uL (4.0-10.0)
[2018-06-06 06:54] LABS: ALBUMIN 1.6 GM/DL (3.2-5.2); ALT/SGPT 32 U/L (12-78); BILIRUBIN,TOTAL 0.5 MG/DL (0.2-1.0); BLOOD UREA NITROGEN 12 MG/DL (7-18); CALCIUM LEVEL 8.6 MG/DL (8.8-10.2); CARBON DIOXIDE LEVEL 29 MEQ/L (21-32); CHLORIDE LEVEL 101 MEQ/L (98-107); CREATININE FOR GFR 0.71 MG/DL (0.70-1.30); GLOMERULAR FILTRATION RATE > 60.0 (>42); GLUCOSE, FASTING 88 MG/DL (70-100); POTASSIUM SERUM 3.8 MEQ/L (3.5-5.1); SODIUM LEVEL 135 MEQ/L (136-145); TOTAL PROTEIN 5.6 GM/DL (6.4-8.2)
[2018-06-06] MEDS: IPRATROPIUM 0.5MG/ALBUTEROL 2.5MG INH SOL UD 3ML (DUONEB)(J7620) NEB SCH ×4 (08:00→20:00)
[2018-06-06] MEDS: ENOXAPARIN 40 MG/0.4 ML SYRINGE (J1650) SC SCH (08:21)
[2018-06-06] MEDS: guaiFENesin ER 600 MG TAB PO SCH ×2 (08:21→20:22)
[2018-06-06] MEDS: PANTOPRAZOLE 40MG TAB (PROTONIX) PO SCH (08:21)
[2018-06-06] MEDS: ACYCLOVIR 5% OINT 15GM TOP SCH ×4 (08:21→20:22)
[2018-06-06] MEDS: amLODIPine 5 MG TAB PO SCH (08:22)
--- NOTE | 2018-06-06 09:51 | IPN ---
DATE: 06/05/2018 The patient is now 20 days postop from exploratory laparotomy and extensive lysis of adhesions for a bowel obstruction. But then developed signs of either a recurrent obstruction or ileus. He also was noted to have developed a pneumonia. He began to make better progress when his antibiotics were adjusted and he is now doing quite well. He is on a regular diet. He reports that he is taking a diet fairly well but has always been a small eater. He reports that the ostomy is working well. His urinary catheter was discontinued over the weekend as well and he has apparently been voiding acceptably. Vital signs show that the patient's maximum temperature (T-max) has been 99.6 over the last 24 hours. His pulse is in the 80s generally. His blood pressure is good with a normal room air oxygen saturation. Intake and output yesterday showed 1450 in with a 1000 recorded out. PHYSICAL EXAMINATION: The patient is alert and responsive. He appears comfortable. He reports that he has been doing some additional walking with assistance. Skin is warm and dry. Heart exam shows a regular rhythm. Lungs show good bilateral breath sounds. The abdomen is flat. The small area along his incision which had been draining has now dried up and healed. He has about [address] and his wound and I removed these today. LABORATORY STUDIES: He had a CBC today that showed a white count of 12, hemoglobin 9, hematocrit of 27 and platelet count of 263,000. Differential count showed 78% neutrophils, 13% lymphocytes and 5% monocytes. Chemistry profile showed normal electrolytes with a BUN of 12, creatinine 0.7 and a glucose of 110. His albumin has not been checked since the 05/31/2018. IMPRESSION: The patient appears to be doing well. His wounds are all healing very nicely. PLAN: His surgical abdias were removed. He will need to continue rehabilitation until he is strong enough for discharge. Overall he appears to be making excellent progress. TANNER
--- NOTE | 2018-06-06 12:29 | IPN ---
DATE: 06/06/2018 The patient is now 3 weeks out from his exploratory laparotomy and lysis of adhesions. He is now making good progress toward recovery. He is off antibiotics and appears to be gaining some strength. He is on a regular diet and reports that his ileostomy is working well. Vital signs are stable and he has been afebrile over the past 24 hours. Intake and output shows that he had 960 in yesterday with 1250 out. PHYSICAL EXAMINATION: Patient is readily aroused from sleep. He is alert and oriented. Heart and lung exam is unremarkable. The abdomen is flat and his midline incision is well-healed. The ostomy is functional. Laboratory studies today show a white count of 11, hemoglobin of 8, hematocrit of 26 and platelet count of 345,000. His chemistry profile shows normal electrolytes with the exception of a slight dip in his sodium to 135. BUN and creatinine are normal as is his glucose. His total protein is up to 5.6 with an albumin of 1.6. IMPRESSION: The patient is making progress with some improvement in his nutritional parameters and excellent function of his ileostomy. PLAN: The patient will be continued on physical therapy and nutritional monitoring. Hopefully he will be a potential candidate for discharge within 3-5 days. TANNER
[2018-06-06 14:00] VITALS: BP 138/66
--- NOTE | 2018-06-06 15:37 | IPNPDOC ---
Subjective Date Seen The patient was seen on 06/06/18. Subjective Chief Complaint/HPI Patient seen and examined at bedside. Denies fevers, chills, chest pain, SOB, nausea, vomiting, abdominal pain. Ate scrambled eggs today without difficulty for breakfast. Reports he had some abdominal pain in the mid-abdomen last evening and asked for some pain medication which put him to sleep. Denies any other acute complaints today. Nursing staff concerned that patient is becoming too dependent on them for doing his ADLs such as emptying his ostomy bag, which he had been taught to do prior to hospitalization. In addition, [facility] is having some concerns about patient not wanting to feed himself. Physical therapy has cleared him for discharge home yesterday. General: Reports: Normal Appetite Constitutional: Denies: Chills, Fever ENT: Denies: Head Aches Skin: Denies: Rash Pulmonary: Denies: Dyspnea, Cough Cardiovascular: Denies: Chest Pain Gastrointestinal: Denies: Nausea, Vomiting, Abdominal Pain, Diarrhea, Constipation Genitourinary: Denies: Dysuria Hematologic: Denies: Bruising Endocrine: Denies: Heat Intolerance, Cold Intolerance Musculoskeletal: Denies: Joint Pain, Muscle Pain Neurological: Denies: Weakness, Confusion Psych: Reports: Mood Normal Objective Physical Examination General Exam: Positive: Alert, Cooperative, No Acute Distress, Other (His voice is very soft when speaking but volume has improved from prior.) Eye Exam: Positive: Conjunctiva & lids normal ENT Exam: Positive: Atraumatic Neck Exam: Positive: Supple; Negative: JVD Chest Exam: Positive: Clear to auscultation; Negative: Normal air movement (decreased), Rales, Rhonchi, Wheezing Heart Exam: Positive: Rate Normal, Regular Rhythm, Normal S1, Normal S2; Negative: Murmurs Abdomen Exam: Positive: Normal bowel sounds, Soft, Other (ileostomy site with output still; ); Negative: Tenderness (Abdomen nondistended. Abdominal bandage at incisonal site not stained. ) Extremity Exam: Negative: Clubbing, Cyanosis, Edema Skin Exam: Positive: Nl turgor and temperature; Negative: Rash Neuro Exam: Positive: Normal Speech Psych Exam: Positive: Mental status NL, Mood NL (euthymic affect.), Oriented x 3 Assessment /Plan Problems (1) Status post exploratory laparotomy Status: Acute Response to Treatment: Stable Problem Text: 06/06/18: POD # 21. Tolerating somewhat of a regular diet. Stated he had scrambled eggs this AM without difficulty of digestion or abdominal disc omfort. Continue to monitor nutrition. Continue management as per General Surgery. Has been cleared by PT yesterday 06/05/ to be safe to discharge home. 06/05: POD #20. Has been advanced to a regular diet. However, he reported that he had some trouble with his diet yesterday. He ate cream of wheat and reverted back to that today. States that it suited him more today. Continue soft diet for now and advance diet as tolerated. Patient also reported that he felt a bit distended last night and was also gassy. Simethicone was started which seems to be helping as per patient. Continue management as per Gen. surgery. 06/03: POD #18. Has been advanced to a soft diet. Was in the process of eating cheerios cereal this AM. Spoke to Dr. Fernández to consider d/ce'ing santacruz catheter and we were on the same page. He already d/ce'd it. Rest of management as per General Surgery. 06/02: POD #17. Still on full liquids diet now. Tolerated an entire bowel of cream of wheat again today. Recommend for General Surgery to look into considering d/ce'ing santacruz catheter. Patient is having good urine output. May consider advancing diet to regular tomorrow. Management per General Surgery. Will also transfer patient from PCU to [facility] and d/c telemetry as patient has been consistently sinus rhythm or sinus tach. 06/01: POD # 16. On full liquids diet now. Management per General Surgery. NG tube is still out and santacruz is still in. 05/29 Post- op D13 Mgmt per GS. On clear liquid diet. 05/28: Post-op day #12. Abdominal exam similar to yesterday, slightly more bowel sounds noticed. toe closing machine tender to palpation of RUQ and RLQ with mid- abdominal tenderness. Continue PT. Surgery is managing the pain control. 05/27: Post-op day #11. Abdominal exam similar to yesterday. toe closing machine tender to palpation of RUQ and RLQ with mid-abdominal tenderness. Continue PT. Continue pain control, which seems controlled this AM. 05/26: Post-op day #10. Abdomen less distended today and patient reports less bloating and abdominal pain today subjectively. 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 Patient, still has ileus and I have encouraged PT to work with patient to continue to help him. Pain control as per General Surgery. I see that they have added toradol to current pain regimen. Pain seems to be controlled enough today. 05/25: Post-op day #9. NG tube has been placed back by Dr. Ontiveros. Still has output in ileostomy. According to CT scan of chest/abdomen/pelvis, it seems patient still has ileus and is unable to get rid of the fluid in his abdomen and bladder. Have ordered nursing to place santacruz back in to help relieve fluid from pelvic region/ tract. Likely recovery will be a very slow course and ileus will take longer time to reverse. Still encourage working with PT to help with ileus. Continue management as per General Surgery. Pain control as per General Surgery. 05/24/18: Post-op day #8. Patient is tolerating full liquid diet. Good output in his ileostomy. General surgery still following. He continues to work with PT 05/23: Post-op day #7. NG tube was discontinued today. Is still having good ileostomy output and is still on TPN. Abdomen appropriately slightly tender to palpation in mid-abdominal region today at incisional site. Still with hypoactive bowel sounds. 05/22: Post-op day #6. Management as per General Surgery. Still on TPN and has NG tube that is still having output. Ileostomy output is still good. Abdomen nontender to palpation today, but still with hypoactive bowel sounds. Will reorder PT/OT today. 05/20: Is post-operative day #4. Still on TPN with K and Mg replacement as per General Surgery. Has increased output from ileostomy site now which has improved. Abdomen still distended but not as tender to palpation--improving. Still hypoactive bowel sounds on auscultation. 05/19 - per surgery On TPN 05/18: Post-operative day #2. Patient on TPN. Minimal output from ileostomy site. Will likely have prolonged course of ileus. Still diffusely tender to palpation of abdomen, but is appropriate and soft. Important to rule out postoperative fever as patient has been having fevers with Tmax of 101.2 yesterday at noontime. Consider UA. CXR from today showed: There is pleuroparenchymal opacity again noted in the left base obscuring the left hemidiaphragm as before. There is slight haziness in the right base which may reflect a small amount of right pleural fluid. Will watch for signs of pneumonia. Currently on day 5 of zosyn. 05/17: Patient is status-post exploratory laparotomy, lysis of adhesions, repair of enterotomy and serosal tears, release of bowel obstruction post-op day #1. Apparently, surgery took around 7 hours and patient is in need of ventilator support at this time post-surgery. General surgery is following and managing the SBO and Facilities Mechanical Design Engineer is consulted to help further manage respiratory support. (2) SBO (small bowel obstruction) Status: Acute Response to Treatment: Improving Problem Text: 06/06/18: POD #21. Needs recounseling about managing his own ostomy which he has been taught prior to hospitalization apparently. Dr. Garrett has counseled him today about managing his own ADLs and to not rely on the nursing staff to make sure he gains his independence enough back to go home and take care of himself. Rest of counseling and management as per General Surgery. 06/05: POD #20. Please see above. Continue management as per Gen. surgery. 06/03: POD #18: Advanced to soft diet. Will see if tolerates this. Management per General Surgery. 06/02: POD #17. Tolerating full liquids diet still. Consider advancing diet tomorrow. Dietary consult in place as well. Rest of management up to General Surgery. 06/01: POD #16. Is now without NG tube and tolerating a full liquids diet. Had cream of wheat today without problems, nausea, vomiting. Continue management as per General Surgery. Have encouraged patient to continue to work with PT as much as possible and get up and out of bed. Have encouraged patient to intake as much nutrition as he can tolerate for energy. 05/28: POD #12. He was able to go without an NG tube today, and tried a few small things, but found out that drinking soda still is probably not a good idea. 05/27: Post-op day #11: Continue to encourage PT. OT and ARU consult ordered yesterday. Management as per General Surgery: continue NG tube decompression. Keep NPO for now. Need to confirm whether patient needs TPN ordered now however for nutritional support. 05/26: Post-op day #10: Management as per General Surgery. Still suffering from ileus as per yesterday's CT abd/pelvis scan. Have encouraged PT to work with patient more to help with ileus. Have also ordered OT and ARU consult as patient was able to do well with PT yesterday. Please see HPI for details. 05/25: Post-op day #9: Management as per General Surgery. 05/24/18: Post-op day #8. Management per General surgery 05/23: Post-Op day #7. Management as per General Surgery. Have encouraged PT/OT and ordered this yesterday so that it can help with patient's post-op ileus. 05/22: Post-Op day #6. Management as per General Surgery. 05/20: Management as per General Surgery, now Dr. Lloyd Valente. Patient is post- op day #4. Spoke briefly to Dr. Valente who states that NG tube will not be removed today. Patient is still having a moderate amount of NG tube output, and it will still take some more time to decompress bowel. 05/18: Dr. Ontiveros of general surgery following and managing. Post-op day #2. 05/17: Status-post exp laparotomy, lysis of adhesions, and release of bowel obstruction post-operative day 1. Is on epidural fentanyl for post-operative pain control. TPN will be started by Dr. Ontiveros today and there is anticipated prolonged course of ileus until return of normal bowel function. This problem is being managed by Dr. Ontiveros of surgery. He seems to be making some improvement with the NG tube drainage, but is still pretty uncomfortable. Will defer to surgery for further management of this problem. (3) Klebsiella pneumoniae pneumonia Status: Acute Response to Treatment: Improving Discussed With: Patient, Family with Pt Consent Problem Specific Plan: Consult Specialist Problem Text: 06/06/18: Meropenem was d/ce'd yesterday. WBC has slightly decreased to 11.4 from 11.8 yesterday. Patient's pneumonia has been adequately treated with antibiotics. Lungs are clear to auscultation. He has clinically improved. Will continue to monitor CBC and clinically for now. 06/05: On day #11 of meropenem. White blood cell count is stable at 11.8 today. Patient's status has clinically improved. Continue meropenem and monitor CBC. Continue to monitor clinically for now. 06/03: On day #9 of meropenem alone. WBC unfortunately went back up today at 12.2 (H) from 9.8 yesterday. If WBC continues to increase, patient may need more imaging for further evaluation of another source of infection. Last CXR was 8 days ago, last abdominal x-ray was 4 days ago, last CT abd/pelvis was 9 days ago . Consider restarting patient on vancomycin if WBC climbs as patient was d/ce'd on this 2 days ago. 06/02: On day #8 of meropenem. Vancomycin d/ce'd yesterday--looks like as per Dr. Wilkins. Will continue meropenem as this does cover klebsiella. Since patient is clinically improving, will not repeat CXR at this time. Blood cx so far negative. Catheter tip cx show no growth aerobically. WBC is WNL still at 9.8 which is encouraging. Patient is feeling like he can breathe better as well. Denies much of a cough but still has it with mucous production. Continue to monitor CBC and clinically. 06/01: On day # 7 of meropenem and day # [address] Mcdaniel wanted to do a CXR to check up on pneumonia. However, I did not see this done or ordered. I will plan on ordering this after talking to attending physician if he recommends it. WBC down to WNL at 10 today. Continue current antibiotic regimen. Patient slowly starting to look improved. 05/29 Meropenam D4, prev on Zosyn, resp status improved, slight bump in WBC today, monitor. 05/28 The sputum cx (that was taken while the patient was on Zosyn) grew Klebsiella pneumoniae which had intermediate sensitivity (only) for the Zosyn. He was changed to meropenem two days ago and has been feeling better since then. Continue meropenem for now. (4) Low hemoglobin Status: Acute Problem Text: 06/06/18: Hgb is slightly decreased today at 8.3 from 8.9 yesterday. Seems stable. Will continue to monitor CBC as Hgb has been fluctuating in the 8's range during hospitalization. 06/05: Hemoglobin stable today at 8.9 from 8.2 yesterday. Continue to monitor CBC. 06/03: Hgb stable at 8.5 today. Continue to monitor CBC. 06/02: Patient's hemoglobin went up to 8.6 today. Stable. Does not appear patient actually got any RBC transfusion yesterday. Will continue to monitor CB C. 06/01: Patient's Hgb was 8.2 today and 8.2 yesterday. It is stable. However, he is getting 1 unit of PRBC transfusion today as per General Surgery. Will continue to monitor CBC. Patient very weak and fatigued appearing. May benefit from this transfusion. No evidence of GI bleed thus far. 05/28: His Hb has been relatively stable since the transfusion. This is good news, but we continue to need to look closely at his Hb to make sure it doesn't acutely drop again. 05/27: Hgb dropped down to 6.7* yesterday at 18:25 unfortunately. Patient had to be transfused 2 units PRBCs and Hgb this AM was 8.2. Will recheck H&H next at 1643. Will transfuse as necessary. Continue to monitor H&H PRN and CBC daily. Drop in Hgb etiology not identified as of yet. DDx includes gastric ulcer, intraabdominal process post-surgically, GI bleed somewhere else, PUD, vs. heparin anticoagulation patient is on etc. 05/26: Hgb unfortunately dropped down to 7.5 today from 9.2 yesterday which is a drastic drop. I have ordered a repeat H&H at 1700 today. 05/25: Hgb was 9.2 today which is encouraging. Continue to monitor CBC. 05/24/18: Hgb 8.1 today. We will continue to monitor 05/23: Patient's Hgb last night was 7.9 and did not drop below 7.9 from yesterday AM. This morning, Hgb was 8.4. It is thus stable. We will continue to monitor his CBC and hold off on transfusion for now. 05/22: Patient's Hgb dropped down to 7.9. Will need to keep an eye on this and will recheck CBC in 12 hours from the one performed earlier today: at 1722. Nursing to call provider if repeat CBC shows Hgb <7.7. (5) Hypertension Status: Chronic Response to Treatment: Stable Problem Specific Plan: Monitor Clinically Problem Text: 06/05: Blood pressure stable and was 146/74 today. Continue to monitor. 06/03: BP stable and was 146/75 this AM. 06/02: BP stable and was 149/71 today. 06/01: BP is stable and controlled. No hypotensive episodes overnight. Continue to monitor. Encourage PO hydration. Not on any IVF any longer. NG tube is out. 05/27: BP well controlled. No other episodes of hypotension noted yesterday. Continue to monitor. Lactated Ringer's IVF still running @ 50 mLs/hr. 05/26: BP well controlled today at 132/96. However, I was concerned patient might have been developing some signs of sepsis yesterday as I did notice upon review of VS from yesterday, patient became hypotensive at one point to 76/40 at 12 PM, 98/44 at 13:05, 101/58 at 15:01, and 103/54 at 1600. Today, BP was 132/96 and is much improved. Patient also has become tachycardic since yesterday with HR's running from 101-110. Has also remained tachypneic with RR running into 20s-25. Will continue to monitor. Is receiving lactated ringer's IVF 1000 mL @ 50 mLs/hr. 05/25: Well controlled. Continue to monitor. 05/24/18: Remains well controlled 05/23: Stable and controlled. 05/22: Stable and controlled. BP was 124/60 today. 05/20: Stable and controlled. BP 140/69 today. 05/18: stable and controlled. Not on any antihypertensives. 05/17: BP well controlled without any antihypertensives. At this time, will hold any antihypertensives. His BP is well controlled at this time. Continue current regimen. (6) Physical deconditioning Status: Acute Problem Text: 06/05: Have encouraged patient to continue to work with physical therapy for strengthening and mobility. 06/03: Strongly encouraged patient to continue to work with PT for physical strengthening and mobility. 06/02: Patient needs to continue to work with PT for physical strengthening and mobility. Transferring to [facility] as there are no acute issues or need for patient to be on PCU any longer. Will d/c telemetry as well. (7) Hypomagnesemia Status: Resolved Problem Text: 05/27: Mg level WNL at 2.2. 05/26: Mg level was low at 1.6 today. Have replaced with Mg Sulfate Runs x 2. Will recheck Mg level at 1700. (8) Acute kidney injury Status: Resolved Problem Text: 06/05: Renal function within normal limits today. Continue to monitor BMP. 06/03: Renal fx WNL today. 06/02: Renal fx still WNL. 06/01: Renal fx is WNL now and AXEL has indeed resolved. 05/27: Renal fx improving. BUN 46 (H) and Cr has trended down to 1.64 (H) today from 1.91 (H) yesterday. Vanc trough level today was WNL at 19.6. 05/26: BUN and Cr unfortunately have trended up and were 45 and 1.91 respectively from 23 and 1.91 yesterday. I suspect this may have to do with possible supratherapeutic dose of vancomycin as the vanc trough level was elevated today at 32.1. Will speak to attending physician and possibly talk to pharmacy regarding adjusting dose for renally dosing the vanco. 05/25: BUN 23 and Cr 1.06. Kidney fx stable. GFR >60. Continue to monitor. 05/24/18:BUN/Cre 22/1.09, GFR > 60, remains stable 05/23: Cr 1.18 and stable. Continue monitoring via BMP. On lasix for diuresis. 05/22: Creatinine stable. Monitor renal fx due to risk of kidney injury from diuresis with lasix. 05/20: Creatinine continuing to improve and is down to 1.13 from 1.25 yesterday. 05/19 - Crea continues to improve. Na+ 151, K+ low this am Surgery managing IVF and electrolyte replacement 05/18: Cr improved today to 1.52 from 1.60 yesterday. Continue to monitor BMP. Is getting IV hydration and TPN which is a concern for 3rd spacing of fluid. Does have trace edema in bilateral lower extremities. Dr. Hays was recommending to try some lasix. 05/17: Creatinine bumped up to 1.60 today with GFR lower at 44.7 from yesterday and is likely from severe dehydration from bowel obstruction. Will continue to monitor BMP and continue IV hydration as necessary. His BUN is down a little, but his creatinine is up. Overall his GFR is down a little more today. Will continue the IV hydration and monitor. I believe that he was significantly dehydrated by the time he was admitted. (9) Aspiration pneumonitis Status: Acute Problem Text: 05/28: It isn't certain if he has an aspiration pneumonitis or not, but he does have K. pneumoniae pneumonia and the treatment can be the same for these, especially guided by a sensitivity. 05/27: Zosyn d/ce'd yesterday. Added meropenem 1 gm q12h IV and is day #2 of [address] per Dr[address] Wilkins's recommendations from ID. Day #7 of Vancomycin. WBC encouragingly has trended back down to normal at 9.6. However, patient did spike a temperature of 100.5 at 23:59 last night. Will continue to monitor labs and clinically. Dr. Wilkins has ordered UA (patient has santacruz catheter), new blood cx x 2, and gram stain & sputum cx yesterday. UA was unremarkable. Blood cx are pending x 2. Sputum cx and gram stain show many WBCs, few epithelial cells, moderate gram (-) rods, and few gram (+) cocci in chains. CXR performed yest erday showed bibasilar pleuroparenchymal opacities. 05/26: Day #13 Zosyn and Day #6 of Vancomycin. WBC encouragingly is trending down and was down to 14.6 today. Will consult ID for any possible further recommendations for Dr. Wilkins. Has remained afebrile. 05/25: Day #12 Zosyn and Day #5 of Vancomycin. WBC is unfortunately trending up and up to 17.6 today. Suspect that patient has another source of infection other than abdominal abscess that may not be clear to us right now. Will consider ID c onsult with Dr. Wilkins if WBC goes up tomorrow. Afebrile all throughout 05/24/18 as well. 05/24/18: Remains on Zosyn (started on 05/14/18) and on Vancomycin (started on 05/21/19). WBC 11.2, T-max of 102.9 at 23:59 on 05/23/18. BC remain negative after 72 hours. Reports continued cough with sputum production. I will discuss with attending about repeat Chest x-ray and/or sputum culture 05/23: Day #10 of Zosyn and Day #3 of Vancomycin. WBC trending down to 10.5. Tmax was 100.7 at midnight last night. Currently, patient has been afebrile since. 05/22: Post-operative fevers likely secondary to aspiration pneumonia vs. multifocal pneumonia (HCAP). Day #9 of Zosyn and was begun on Vancomycin yeste rday for more broad spectrum coverage. WBC trending down to 12.2. Tmax was 100.1 at midnight. Has been afebrile since. CT chest on 05/20 had shown bilateral lower lobe consolidation and atelectasis, persistent R middle lobe multifactorial patchy densities, new mild patchy ground glass opacities within both upper lobes, diffuse infiltrates and small pleural effusions. 05/20: Day #7 Zosyn. WBC trending down from 16.1 to 11.8. Patient has been afebrile since 2 PM yesterday and satting in the 90s on room air. CXR today shows no significant change, bibasilar opacities and cardiomegaly status-quo. Blood cx show NGTD x 24 hours. 05/19 D#6 Zosyn. WBC up slightly B/C and f/u CXR pending - ordered by pulmonary Resp status improve - extubated on NC 05/18: Day #5 of zosyn. CXR was similar to prior. Please see under assessment #1. Continue to monitor clinically. 05/17: Likely secondary from reflux of gastric contents/secretions from NG tube. Continue zosyn. Day #4. (10) Acute respiratory failure with hypoxia Status: Resolved Response to Treatment: Stable Problem Text: 05/28: It is likely that these acute respiratory events were the related to the K pneumoniae pneumonia. Will continue to monitor. 05/27: O2 saturation is 99% on 2L NC. May be able to wean down to 1L via NC today. Will plan on placing nursing order for this. 05/26: O2 saturation has remained in the low 90s at 2L NC. Will consider increasing O2 to 3 L. Will discuss with attending physician for need for this. Patient does not seem to have a prior hx of COPD however. 05/25: Stable O2 saturations in the 90s on 2L NC. 05/24/18: Remains on O2 vial nasal cannula to maintain saturations of >90% 05/23: Patient's O2 saturation was 93% on 2L nasal cannula. Have instructed staff to titrate patient's O2 above 90%, but not too high so as to avoid oxygen toxicity. Patient is still having net negative diuresis of 2.831 liters y esterday and -1.4 liters today. Is having good urine output: 1.99 mL/kg/hr. Weight is down from 67.9 kg to 66.4 kg today. Still on lasix 40 mg q6h IV. His lungs sound much clearer to me today. I believe his respiratory status has clinically improved from prior. Will continue santacruz for now to monitor net negative diuresis until this is complete. Also has epidural for pain control. 05/22: Hypoxia secondary to pulmonary edema secondary to diastolic CHF/volume overload. Patient had net negative diuresis of at least 2 liters yesterday. His O2 saturation has improved and he is requiring less oxygen than 2 days ago. He is now on 2 liters O2 via nasal cannula from 6 liters previously. 05/20: Improved. Is satting in the 90s on room air without significant work of breathing. Is in NAD. Still mildly tachypneic with RR in the low 20s. 05/19 - successfully tolerated extubation - on NC today - Per Pulmonary 05/18: Trial of weaning off ventilator was not predictive of success for extubation. Dr. Hays will be performing another trial today. 05/17: Patient went into acute hypoxic respiratory failure status-post surgery yesterday. Remained intubated and was placed on mechanical ventilation. Dr. Hays will be trying to wean patient to assess weather his SBI will go to <104 and if patient can take deep and slow breaths which would indicate success if patient were to be extubated. She will determine this today. He may be able to be extubated either today or tomorrow. Plan/VTE VTE Prophylaxis Ordered?: Yes (Enoxaparin 40 mg SC, TEDs and Sequentials.) Plan/Urinary Catheter Urinary Catheter: D/C Santacruz Reason for insertion/continuin: Critical Pt monitoring Plan IVF: Decrease VS, I&O, 24H, Fishbone Vital Signs/I&O Vital Signs Date Time Temp Pulse Resp B/P (MAP) Pulse Ox O2 Delivery O2 Flow Rate FiO2 06/06/18 14:00 97.6 94 20 138/66 (90) 93 Room Air 06/01/18 04:35 2.0 I&O- Last 24 Hours up to 6 AM 06/06/18 05:59 Intake Total 880 ml Output Total 1450 ml Balance -570 ml Laboratory Data 24H LABS Laboratory Tests 2 06/06/18 06:09: Immature Granulocyte % (Auto) 2.0, White Blood Count 11.4H, Red Blood Count 2.83L, Hemoglobin 8.3L, Hematocrit 25.7L, Mean Corpuscular Volume 90.8, Mean Corpuscular Hemoglobin 29.3, Mean Corpuscular Hemoglobin Concent 32.3, Red Cell Distribution Width 12.9, Platelet Count 345, Neutrophils (%) (Auto) 75.5H, Lymphocytes (%) (Auto) 14.0L, Monocytes (%) (Auto) 6.0H, Eosinophils (%) (Auto) 2.1, Basophils (%) (Auto) 0.4, Neutrophils # (Auto) 8.6H, Lymphocytes # (Auto) 1.6, Monocytes # (Auto) 0.7, Eosinophils # (Auto) 0.2, Basophils # (Auto) 0.1, Nucleated Red Blood Cells % (auto) 0.0, Anion Gap 5L, Glomerular Filtration Rate > 60.0, Blood Urea Nitrogen 12, Creatinine 0.71, Sodium Level 135L, Potassium Level 3.8, Chloride Level 101, Carbon Dioxide Level 29, Calcium Level 8.6L, Aspartate Amino Transf (AST/SGOT) 22, Alanine Aminotransferase (ALT/SGPT) 32, Alkaline Phosphatase 388H, Total Bilirubin 0.5, Total Protein 5.6L, Albumin 1.6L, Albumin/Globulin Ratio 0.40L CBC/BMP Laboratory Tests 06/06/18 06:09 Red Blood Count 2.83 L, Mean Corpuscular Volume 90.8, Mean Corpuscular Hemoglobin 29.3, Mean Corpuscular Hemoglobin Concent 32.3, Red Cell Distribution Width 12.9, Neutrophils (%) (Auto) 75.5 H, Lymphocytes (%) (Auto) 14.0 L, Monocytes (%) (Auto) 6.0 H, Eosinophils (%) (Auto) 2.1, Basophils (%) (Auto) 0.4, Neutrophils # (Auto) 8.6 H, Lymphocytes # (Auto) 1.6, Monocytes # (Auto) 0.7, Eosinophils # (Auto) 0.2, Basophils # (Auto) 0.1, Calcium Level 8.6 L, Aspartate Amino Transf (AST/SGOT) 22, Alanine Aminotransferase (ALT/SGPT) 32, Alkaline Phosphatase 388 H, Total Bilirubin 0.5, Total Protein 5.6 L, Albumin 1.6 L Microbiology Microbiology 05/28/18 Catheter Tip Culture - Final, Complete GME ATTESTATION GME ATTESTATION My faculty preceptor for this patient encounter was Dr. Nancy Middleton, and was physically present during the encounter and was fully available. All aspects of the patient interview, examination, medical decision making process, and medical care plan development were reviewed and approved by the faculty preceptor. The faculty preceptor is aware and concurs with the plan as stated in the body of this note and will attest to such by his/her cosignature. BERYL JO DO Jun 06, 2018 15:37
[2018-06-06 20:00] VITALS: BP 150/74
[2018-06-07] MEDS: SLF 3 ML SYR IV SCH ×3 (05:42→21:16)
[2018-06-07 06:00] VITALS: BP 155/81
[2018-06-07 06:05] LABS: BASO % 0.2 % (0.0-1.0); EOS # 0.2 10^3/uL (0.0-0.50); EOS % 1.3 % (0.0-3.0); HEMATOCRIT 25.8 % (42.0-52.0); HEMOGLOBIN 8.6 g/dl (13.5-17.5); LYMPH # 1.6 10^3/uL (1.5-4.5); LYMPH % 13.3 % (24.0-44.0); MEAN CORPUSCULAR HEMOGLOBIN 29.6 pg (27.0-33.0); MEAN CORPUSCULAR HGB CONC 33.3 g/dl (32.0-36.5); MEAN CORPUSCULAR VOLUME 88.7 fl (80.0-96.0); MONO # 0.6 10^3/uL (0.0-0.8); MONO % 5.2 % (0.0-5.0); NEUTROPHILS # 9.6 10^3/uL (1.8-7.7); NEUTROPHILS % 78.6 % (36.0-66.0); PLATELET COUNT, AUTOMATED 352 10^3/uL (150-450); RED BLOOD COUNT 2.91 10^6/uL (4.30-6.10); WHITE BLOOD COUNT 12.2 10^3/uL (4.0-10.0)
[2018-06-07 06:33] LABS: BLOOD UREA NITROGEN 13 MG/DL (7-18); CALCIUM LEVEL 8.5 MG/DL (8.8-10.2); CARBON DIOXIDE LEVEL 29 MEQ/L (21-32); CHLORIDE LEVEL 100 MEQ/L (98-107); CREATININE FOR GFR 0.71 MG/DL (0.70-1.30); GLOMERULAR FILTRATION RATE > 60.0 (>42); GLUCOSE, FASTING 98 MG/DL (70-100); POTASSIUM SERUM 3.7 MEQ/L (3.5-5.1); SODIUM LEVEL 136 MEQ/L (136-145)
[2018-06-07] MEDS: guaiFENesin ER 600 MG TAB PO SCH ×2 (09:37→21:16)
[2018-06-07] MEDS: ENOXAPARIN 40 MG/0.4 ML SYRINGE (J1650) SC SCH (09:37)
[2018-06-07] MEDS: PANTOPRAZOLE 40MG TAB (PROTONIX) PO SCH (09:37)
[2018-06-07] MEDS: ACYCLOVIR 5% OINT 15GM TOP SCH ×4 (09:38→21:16)
[2018-06-07] MEDS: amLODIPine 5 MG TAB PO SCH (09:39)
[2018-06-07] MEDS: IPRATROPIUM 0.5MG/ALBUTEROL 2.5MG INH SOL UD 3ML (DUONEB)(J7620) NEB SCH ×4 (09:50→20:00)
[2018-06-07 14:00] VITALS: BP 155/76
[2018-06-07] MEDS: NORCO, ANEXSIA 5/325MG TABLET (HYDROcodone/ACETAMINOPHEN) PO PRN ×3 (14:42→23:49)
--- NOTE | 2018-06-07 18:04 | IPN ---
DATE: 06/07/2018 HISTORY: The patient is a 78-year-old man, now 22 days postoperative from his laparotomy and lysis of adhesions for a bowel obstruction. He has had good return of his ostomy function. His previous pneumonia appears to have cleared, and he is now off all antibiotics. He reports that he is eating better. He has not yet done well with physical therapy. VITAL SIGNS: He has been afebrile with a pulse in the 80s and a good blood pressure. Room air oxygen saturations are normal. Intake and output: Yesterday he had 1200 in with 2000 out. PHYSICAL EXAMINATION: The patient is sitting up in a chair. He complains of some rectal pain and indicates that he sometimes has pain in the area where his proctocolectomy had been performed. He is alert and appears oriented. Skin is warm and dry. Heart exam shows a regular rhythm. Examination of the abdomen shows that his ostomy appears to be functioning well, and the abdomen is flat. LABORATORY STUDIES: Today the patient has a white count of 12, hemoglobin of 9, hematocrit of 26, and platelet count of 352,000. Differential count shows 79% neutrophils, 13% lymphocytes, and 5% monocytes. These numbers have not changed significantly over the last 4 days or longer. Chemistry profile today shows normal electrolytes with BUN of 13, creatinine 0.7, and a glucose of 98. IMPRESSION: The patient is doing well. He is eating, and his ostomy is functioning. He needs to continue with physical therapy to gain some strength before he will be ready for discharge. TANNER
[2018-06-07] MEDS: SIMETHICONE 80 MG CHEW TAB PO PRN (21:20)
[2018-06-07 22:00] VITALS: BP 146/71
[2018-06-08] MEDS: NORCO, ANEXSIA 5/325MG TABLET (HYDROcodone/ACETAMINOPHEN) PO PRN ×3 (04:09→18:27)
[2018-06-08] MEDS: SLF 3 ML SYR IV SCH ×3 (04:10→22:00)
[2018-06-08 06:00] VITALS: BP 159/70
[2018-06-08 06:32] LABS: BASO # 0.1 10^3/uL (0.0-0.2); BASO % 0.4 % (0.0-1.0); EOS # 0.2 10^3/uL (0.0-0.50); EOS % 1.6 % (0.0-3.0); HEMOGLOBIN 8.7 g/dl (13.5-17.5); LYMPH # 1.7 10^3/uL (1.5-4.5); LYMPH % 15.1 % (24.0-44.0); MEAN CORPUSCULAR HEMOGLOBIN 29.7 pg (27.0-33.0); MEAN CORPUSCULAR HGB CONC 33.5 g/dl (32.0-36.5); MEAN CORPUSCULAR VOLUME 88.7 fl (80.0-96.0); MONO # 0.6 10^3/uL (0.0-0.8); MONO % 5.4 % (0.0-5.0); NEUTROPHILS # 8.5 10^3/uL (1.8-7.7); NEUTROPHILS % 76.1 % (36.0-66.0); PLATELET COUNT, AUTOMATED 336 10^3/uL (150-450); RED BLOOD COUNT 2.93 10^6/uL (4.30-6.10); WHITE BLOOD COUNT 11.1 10^3/uL (4.0-10.0)
[2018-06-08 06:54] LABS: BLOOD UREA NITROGEN 14 MG/DL (7-18); CALCIUM LEVEL 8.9 MG/DL (8.8-10.2); CARBON DIOXIDE LEVEL 30 MEQ/L (21-32); CHLORIDE LEVEL 101 MEQ/L (98-107); CREATININE FOR GFR 0.78 MG/DL (0.70-1.30); GLOMERULAR FILTRATION RATE > 60.0 (>42); GLUCOSE, FASTING 104 MG/DL (70-100); POTASSIUM SERUM 3.7 MEQ/L (3.5-5.1); SODIUM LEVEL 136 MEQ/L (136-145)
[2018-06-08] MEDS: IPRATROPIUM 0.5MG/ALBUTEROL 2.5MG INH SOL UD 3ML (DUONEB)(J7620) NEB SCH ×4 (07:12→18:20)
[2018-06-08] MEDS: ENOXAPARIN 40 MG/0.4 ML SYRINGE (J1650) SC SCH (09:41)
[2018-06-08] MEDS: PANTOPRAZOLE 40MG TAB (PROTONIX) PO SCH (09:42)
[2018-06-08] MEDS: ACYCLOVIR 5% OINT 15GM TOP SCH ×4 (09:42→22:16)
[2018-06-08] MEDS: guaiFENesin ER 600 MG TAB PO SCH ×2 (09:42→22:16)
[2018-06-08] MEDS: amLODIPine 5 MG TAB PO SCH (09:42)
--- NOTE | 2018-06-08 12:08 | IPNPDOC ---
Subjective Date Seen The patient was seen on 06/08/18. Subjective Chief Complaint/HPI Patient seen and examined at bedside. States that he has been having a lot of gassiness. Had some abdominal discomfort last night and asked for pain medication, which helped him to go to sleep. Denies abdominal pain this AM or any other acute complaints. Ate cream of wheat this morning without difficulty. Reports its because he likes cream of wheat, but does not specify whether other more solid foods are more intolerable for him or not. General: Reports: Normal Appetite Constitutional: Denies: Chills, Fever ENT: Denies: Head Aches Skin: Denies: Rash Pulmonary: Denies: Dyspnea, Cough Cardiovascular: Denies: Chest Pain Gastrointestinal: Denies: Nausea, Vomiting, Abdominal Pain, Diarrhea, Constipation Genitourinary: Denies: Dysuria Hematologic: Denies: Bruising Endocrine: Denies: Heat Intolerance, Cold Intolerance Musculoskeletal: Denies: Joint Pain, Muscle Pain Neurological: Denies: Weakness, Confusion Psych: Reports: Mood Normal Objective Physical Examination General Exam: Positive: Alert, Cooperative, No Acute Distress, Other (His voice is very soft when speaking still. Patient seems to be deconditioned physically and somewhat weak. ) Eye Exam: Positive: Conjunctiva & lids normal; Negative: Sclera icteric ENT Exam: Positive: Atraumatic Neck Exam: Positive: Supple; Negative: JVD Chest Exam: Positive: Clear to auscultation; Negative: Normal air movement (decreased), Rales, Rhonchi, Wheezing Heart Exam: Positive: Rate Normal, Regular Rhythm, Normal S1, Normal S2; Negative: Murmurs Abdomen Exam: Positive: Normal bowel sounds, Soft, Tenderness (Abdomen nondistended. Abdominal bandage at incisonal site not stained. ), Other (ileostomy site with output still; ) Extremity Exam: Negative: Clubbing, Cyanosis, Edema Skin Exam: Positive: Nl turgor and temperature; Negative: Rash Neuro Exam: Positive: Normal Speech Psych Exam: Positive: Mental status NL, Mood NL (euthymic affect.), Oriented x 3 Assessment /Plan Problems (1) Status post exploratory laparotomy Status: Acute Response to Treatment: Stable Problem Text: 06/08/18: POD # 23. Seems to be tolerating a soft diet, but uncertain whether he is tolerating a regular diet as he ate cream of wheat this morning. Will continue to monitor nutrition. Rest of management as per General Surgery. Was working with PT this AM and still needs physical therapy for strengthening and mobility as per General Surgery note. Likely, this is what is holding up his discharge. 06/06/18: POD # 21. Tolerating somewhat of a regular diet. Stated he had scrambled eggs this AM without difficulty of digestion or abdominal discomfort. Continue to monitor nutrition. Continue management as per General Surgery. Has been cleared by PT yesterday 06/05/18 to be safe to discharge home. 06/05: POD #20. Has been advanced to a regular diet. However, he reported that he had some trouble with his diet yesterday. He ate cream of wheat and reverted back to that today. States that it suited him more today. Continue soft diet for now and advance diet as tolerated. Patient also reported that he felt a bit distended last night and was also gassy. Simethicone was started which seems to be helping as per patient. Continue management as per Gen. surgery. 06/03: POD #18. Has been advanced to a soft diet. Was in the process of eating cheerios cereal this AM. Spoke to Dr. Fernández to consider d/ce'ing santacruz catheter and we were on the same page. He already d/ce'd it. Rest of management as per General Surgery. 06/02: POD #17. Still on full liquids diet now. Tolerated an entire bowel of cream of wheat again today. Recommend for General Surgery to look into considering d/ce'ing santacruz catheter. Patient is having good urine output. May consider advancing diet to regular tomorrow. Management per General Surgery. Will also transfer patient from PCU to [facility] and d/c telemetry as patient has been consistently sinus rhythm or sinus tach. 06/01: POD # 16. On full liquids diet now. Management per General Surgery. NG tube is still out and santacruz is still in. 05/29 Post- op D13 Mgmt per GS. On clear liquid diet. 05/28: Post-op day #12. Abdominal exam similar to yesterday, slightly more bowel sounds noticed. piece dyeing machine tender to palpation of RUQ and RLQ with mid- abdominal tenderness. Continue PT. Surgery is managing the pain control. 05/27: Post-op day #11. Abdominal exam similar to yesterday. piece dyeing machine tender to palpation of RUQ and RLQ with mid-abdominal tenderness. Continue PT. Continue pain control, which seems controlled this AM. 05/26: Post-op day #10. Abdomen less distended today and patient reports less bloating and abdominal pain today subjectively. However, precipitation equipment tender to palpation of RUQ and RLQ as well as mid-abdominal region. Patient, still has ileus and I have encouraged PT to work with patient to continue to help him. Pain control as per General Surgery. I see that they have added toradol to current pain regimen. Pain seems to be controlled enough today. 05/25: Post-op day #9. NG tube has been placed back by Dr. Ontiveros. Still has output in ileostomy. According to CT scan of chest/abdomen/pelvis, it seems patient still has ileus and is unable to get rid of the fluid in his abdomen and bladder. Have ordered nursing to place santacruz back in to help relieve fluid from pelvic region/ tract. Likely recovery will be a very slow course and ileus will take longer time to reverse. Still encourage working with PT to help with ileus. Continue management as per General Surgery. Pain control as per General Surgery. 05/24/18: Post-op day #8. Patient is tolerating full liquid diet. Good output in his ileostomy. General surgery still following. He continues to work with PT 05/23: Post-op day #7. NG tube was discontinued today. Is still having good ileostomy output and is still on TPN. Abdomen appropriately slightly tender to palpation in mid-abdominal region today at incisional site. Still with hypoactive bowel sounds. 05/22: Post-op day #6. Management as per General Surgery. Still on TPN and has NG tube that is still having output. Ileostomy output is still good. Abdomen non tender to palpation today, but still with hypoactive bowel sounds. Will reorder PT/OT today. 05/20: Is post-operative day #4. Still on TPN with K and Mg replacement as per General Surgery. Has increased output from ileostomy site now which has improved. Abdomen still distended but not as tender to palpation--improving. Still hypoactive bowel sounds on auscultation. 05/19 - per surgery On TPN 05/18: Post-operative day #2. Patient on TPN. Minimal output from ileostomy site. Will likely have prolonged course of ileus. Still diffusely tender to palpation of abdomen, but is appropriate and soft. Important to rule out postoperative fever as patient has been having fevers with Tmax of 101.2 ye sterday at noontime. Consider UA. CXR from today showed: There is pleuroparenchymal opacity again noted in the left base obscuring the left hemidiaphragm as before. There is slight haziness in the right base which may reflect a small amount of right pleural fluid. Will watch for signs of pneumonia. Currently on day 5 of zosyn. 05/17: Patient is status-post exploratory laparotomy, lysis of adhesions, repair of enterotomy and serosal tears, release of bowel obstruction post-op day #1. Apparently, surgery took around 7 hours and patient is in need of ventilator support at this time post-surgery. General surgery is following and managing the SBO and Position Description Manager is consulted to help further manage respiratory support. (2) SBO (small bowel obstruction) Status: Acute Response to Treatment: Improving Problem Text: 06/08/18: POD # 23. Management as per Gen Surg. 06/06/18: POD #21. Needs recounseling about managing his own ostomy which he has been taught prior to hospitalization apparently. Dr. Garrett has counseled him today about managing his own ADLs and to not rely on the nursing staff to make sure he gains his independence enough back to go home and take care of himself. Rest of counseling and management as per General Surgery. 06/05: POD #20. Please see above. Continue management as per Gen. surgery. 06/03: POD #18: Advanced to soft diet. Will see if tolerates this. Management per General Surgery. 06/02: POD #17. Tolerating full liquids diet still. Consider advancing diet tomorrow. Dietary consult in place as well. Rest of management up to General Surgery. 06/01: POD #16. Is now without NG tube and tolerating a full liquids diet. Had cream of wheat today without problems, nausea, vomiting. Continue management as per General Surgery. Have encouraged patient to continue to work with PT as much as possible and get up and out of bed. Have encouraged patient to intake as much nutrition as he can tolerate for energy. 05/28: POD #12. He was able to go without an NG tube today, and tried a few small things, but found out that drinking soda still is probably not a good idea. 05/27: Post-op day #11: Continue to encourage PT. OT and ARU consult ordered yesterday. Management as per General Surgery: continue NG tube decompression. Keep NPO for now. Need to confirm whether patient needs TPN ordered now however for nutritional support. 05/26: Post-op day #10: Management as per General Surgery. Still suffering from ileus as per yesterday's CT abd/pelvis scan. Have encouraged PT to work with patient more to help with ileus. Have also ordered OT and ARU consult as patient was able to do well with PT yesterday. Please see HPI for details. 05/25: Post-op day #9: Management as per General Surgery. 05/24/18: Post-op day #8. Management per General surgery 05/23: Post-Op day #7. Management as per General Surgery. Have encouraged PT/OT and ordered this yesterday so that it can help with patient's post-op ileus. 05/22: Post-Op day #6. Management as per General Surgery. 05/20: Management as per General Surgery, now Dr. Lloyd Valente. Patient is post- op day #4. Spoke briefly to Dr. Valente who states that NG tube will not be removed today. Patient is still having a moderate amount of NG tube output, and it will still take some more time to decompress bowel. 05/18: Dr. Ontiveros of general surgery following and managing. Post-op day #2. 05/17: Status-post exp laparotomy, lysis of adhesions, and release of bowel obstruction post-operative day 1. Is on epidural fentanyl for post-operative pain control. TPN will be started by Dr. Ontiveros today and there is anticipated prolonged course of ileus until return of normal bowel function. This problem is being managed by Dr. Ontiveros of surgery. He seems to be making some improvement with the NG tube drainage, but is still pretty uncomfortable. Will defer to surgery for further management of this problem. (3) Klebsiella pneumoniae pneumonia Status: Resolved Response to Treatment: Improving Discussed With: Patient, Family with Pt Consent Problem Specific Plan: Consult Specialist Problem Text: 06/08/18: Resolved. Lungs clear to auscultation today. WBC remains stable at 11.1 today. 06/06/18: Meropenem was d/ce'd yesterday. WBC has slightly decreased to 11.4 from 11.8 yesterday. Patient's pneumonia has been adequately treated with antibio tics. Lungs are clear to auscultation. He has clinically improved. Will continue to monitor CBC and clinically for now. 06/05: On day #11 of meropenem. White blood cell count is stable at 11.8 today. Patient's status has clinically improved. Continue meropenem and monitor CBC. Continue to monitor clinically for now. 06/03: On day #9 of meropenem alone. WBC unfortunately went back up today at 12.2 (H) from 9.8 yesterday. If WBC continues to increase, patient may need more imaging for further evaluation of another source of infection. Last CXR was 8 days ago, last abdominal x-ray was 4 days ago, last CT abd/pelvis was 9 days ago. Consider restarting patient on vancomycin if WBC climbs as patient was d/ce'd on this 2 days ago. 06/02: On day #8 of meropenem. Vancomycin d/ce'd yesterday--looks like as per Dr. Wilkins. Will continue meropenem as this does cover klebsiella. Since patient is clinically improving, will not repeat CXR at this time. Blood cx so far negative. Catheter tip cx show no growth aerobically. WBC is WNL still at 9.8 which is encouraging. Patient is feeling like he can breathe better as well. Denies much of a cough but still has it with mucous production. Continue to monitor CBC and clinically. 06/01: On day # 7 of meropenem and day # [address] Mcdaniel wanted to do a CXR to check up on pneumonia. However, I did not see this done or ordered. I will plan on ordering this after talking to attending physician if he recommends it. WBC down to WNL at 10 today. Continue current antibiotic regimen. Patient slowly starting to look improved. 05/29 Meropenam D4, prev on Zosyn, resp status improved, slight bump in WBC today, monitor. 05/28 The sputum cx (that was taken while the patient was on Zosyn) grew Klebsiella pneumoniae which had intermediate sensitivity (only) for the Zosyn. He was changed to meropenem two days ago and has been feeling better since then. Continue meropenem for now. (4) Low hemoglobin Status: Acute Problem Text: 06/08/18: Hgb 8.7 (L) today. Stable. Continue to monitor CBC. Hgb mainly always in 8's range. 06/06/18: Hgb is slightly decreased today at 8.3 from 8.9 yesterday. Seems stable. Will continue to monitor CBC as Hgb has been fluctuating in the 8's range during hospitalization. 06/05: Hemoglobin stable today at 8.9 from 8.2 yesterday. Continue to monitor CBC. 06/03: Hgb stable at 8.5 today. Continue to monitor CBC. 06/02: Patient's hemoglobin went up to 8.6 today. Stable. Does not appear patient actually got any RBC transfusion yesterday. Will continue to monitor CBC. 06/01: Patient's Hgb was 8.2 today and 8.2 yesterday. It is stable. However, he is getting 1 unit of PRBC transfusion today as per General Surgery. Will continue to monitor CBC. Patient very weak and fatigued appearing. May benefit from this transfusion. No evidence of GI bleed thus far. 05/28: His Hb has been relatively stable since the transfusion. This is good news, but we continue to need to look closely at his Hb to make sure it doesn't acutely drop again. 05/27: Hgb dropped down to 6.7* yesterday at 18:25 unfortunately. Patient had to be transfused 2 units PRBCs and Hgb this AM was 8.2. Will recheck H&H next at 1643. Will transfuse as necessary. Continue to monitor H&H PRN and CBC daily. Drop in Hgb etiology not identified as of yet. DDx includes gastric ulcer, intraabdominal process post-surgically, GI bleed somewhere else, PUD, vs. heparin anticoagulation patient is on etc. 05/26: Hgb unfortunately dropped down to 7.5 today from 9.2 yesterday which is a drastic drop. I have ordered a repeat H&H at 1700 today. 05/25: Hgb was 9.2 today which is encouraging. Continue to monitor CBC. 05/24/18: Hgb 8.1 today. We will continue to monitor 05/23: Patient's Hgb last night was 7.9 and did not drop below 7.9 from yesterday AM. This morning, Hgb was 8.4. It is thus stable. We will continue to monitor his CBC and hold off on transfusion for now. 05/22: Patient's Hgb dropped down to 7.9. Will need to keep an eye on this and will recheck CBC in 12 hours from the one performed earlier today: at 1722. Nursing to call provider if repeat CBC shows Hgb <7.7. (5) Hypertension Status: Chronic Response to Treatment: Stable Problem Specific Plan: Monitor Clinically Problem Text: 06/08/18: BP 159/70 and stable. 06/05: Blood pressure stable and was 146/74 today. Continue to monitor. 06/03: BP stable and was 146/75 this AM. 06/02: BP stable and was 149/71 today. 06/01: BP is stable and controlled. No hypotensive episodes overnight. Continue to monitor. Encourage PO hydration. Not on any IVF any longer. NG tube is out. 05/27: BP well controlled. No other episodes of hypotension noted yesterday. Continue to monitor. Lactated Ringer's IVF still running @ 50 mLs/hr. 05/26: BP well controlled today at 132/96. However, I was concerned patient might have been developing some signs of sepsis yesterday as I did notice upon review of VS from yesterday, patient became hypotensive at one point to 76/40 at 12 PM, 98/44 at 13:05, 101/58 at 15:01, and 103/54 at 1600. Today, BP was 132/96 and is much improved. Patient also has become tachycardic since yesterday with HR's running from 101-110. Has also remained tachypneic with RR running into 20s-25. Will continue to monitor. Is receiving lactated ringer's IVF 1000 mL @ 50 mLs/hr. 05/25: Well controlled. Continue to monitor. 05/24/18: Remains well controlled 05/23: Stable and controlled. 05/22: Stable and controlled. BP was 124/60 today. 05/20: Stable and controlled. BP 140/69 today. 05/18: stable and controlled. Not on any antihypertensives. 05/17: BP well controlled without any antihypertensives. At this time, will hold any antihypertensives. His BP is well controlled at this time. Continue current regimen. (6) Physical deconditioning Status: Acute Problem Text: 06/08/18: Have continued to encourage patient to work with PT as he seems physically deconditioned and unstable for discharge to home at this time until he gains back mobility/strength. 06/05: Have encouraged patient to continue to work with physical therapy for strengthening and mobility. 06/03: Strongly encouraged patient to continue to work with PT for physical strengthening and mobility. 06/02: Patient needs to continue to work with PT for physical strengthening and mobility. Transferring to 4 P[facility] as there are no acute issues or need for patient to be on PCU any longer. Will d/c telemetry as well. (7) Hypomagnesemia Status: Resolved Problem Text: 05/27: Mg level WNL at 2.2. 05/26: Mg level was low at 1.6 today. Have replaced with Mg Sulfate Runs x 2. Will recheck Mg level at 1700. (8) Acute kidney injury Status: Resolved Problem Text: 06/05: Renal function within normal limits today. Continue to monitor BMP. 06/03: Renal fx WNL today. 06/02: Renal fx still WNL. 06/01: Renal fx is WNL now and AXEL has indeed resolved. 05/27: Renal fx improving. BUN 46 (H) and Cr has trended down to 1.64 (H) today from 1.91 (H) yesterday. Vanc trough level today was WNL at 19.6. 05/26: BUN and Cr unfortunately have trended up and were 45 and 1.91 respectively from 23 and 1.91 yesterday. I suspect this may have to do with possible supratherapeutic dose of vancomycin as the vanc trough level was elevated today at 32.1. Will speak to attending physician and possibly talk to pharmacy regarding adjusting dose for renally dosing the vanco. 05/25: BUN 23 and Cr 1.06. Kidney fx stable. GFR >60. Continue to monitor. 05/24/18:BUN/Cre 22/1.09, GFR > 60, remains stable 05/23: Cr 1.18 and stable. Continue monitoring via BMP. On lasix for diuresis. 05/22: Creatinine stable. Monitor renal fx due to risk of kidney injury from diuresis with lasix. 05/20: Creatinine continuing to improve and is down to 1.13 from 1.25 yesterday. 05/19 - Crea continues to improve. Na+ 151, K+ low this am Surgery managing IVF and electrolyte replacement 05/18: Cr improved today to 1.52 from 1.60 yesterday. Continue to monitor BMP. Is getting IV hydration and TPN which is a concern for 3rd spacing of fluid. Does have trace edema in bilateral lower extremities. Dr. Hays was recommending to try some lasix. 05/17: Creatinine bumped up to 1.60 today with GFR lower at 44.7 from yesterday and is likely from severe dehydration from bowel obstruction. Will continue to monitor BMP and continue IV hydration as necessary. His BUN is down a little, but his creatinine is up. Overall his GFR is down a little more today. Will continue the IV hydration and monitor. I believe that he was significantly dehydrated by the time he was admitted. (9) Aspiration pneumonitis Status: Resolved Problem Text: 05/28: It isn't certain if he has an aspiration pneumonitis or not, but he does have K. pneumoniae pneumonia and the treatment can be the same for these, especially guided by a sensitivity. 05/27: Zosyn d/ce'd yesterday. Added meropenem 1 gm q12h IV and is day #2 of [address] per Dr. Wilkins's recommendations from ID. Day #7 of Vancomycin. WBC enc ouragingly has trended back down to normal at 9.6. However, patient did spike a temperature of 100.5 at 23:59 last night. Will continue to monitor labs and clinically. Dr. Wilkins has ordered UA (patient has santacruz catheter), new blood cx x 2, and gram stain & sputum cx yesterday. UA was unremarkable. Blood cx are pending x 2. Sputum cx and gram stain show many WBCs, few epithelial cells, moderate gram (-) rods, and few gram (+) cocci in chains. CXR performed yesterday showed bibasilar pleuroparenchymal opacities. 05/26: Day #13 Zosyn and Day #6 of Vancomycin. WBC encouragingly is trending down and was down to 14.6 today. Will consult ID for any possible further recommendations for Dr. Wilkins. Has remained afebrile. 05/25: Day #12 Zosyn and Day #5 of Vancomycin. WBC is unfortunately trending up and up to 17.6 today. Suspect that patient has another source of infection other than abdominal abscess that may not be clear to us right now. Will consider ID consult with Dr. Wilkins if WBC goes up tomorrow. Afebrile all throughout 05/24/18 as well. 05/24/18: Remains on Zosyn (started on 05/14/18) and on Vancomycin (started on 05/21/19). WBC 11.2, T-max of 102.9 at 23:59 on 05/23/18. BC remain negative after 72 hours. Reports continued cough with sputum production. I will discuss with attending about repeat Chest x-ray and/or sputum culture 05/23: Day #10 of Zosyn and Day #3 of Vancomycin. WBC trending down to 10.5. Tmax was 100.7 at midnight last night. Currently, patient has been afebrile since. 05/22: Post-operative fevers likely secondary to aspiration pneumonia vs. multifocal pneumonia (HCAP). Day #9 of Zosyn and was begun on Vancomycin yesterday for more broad spectrum coverage. WBC trending down to 12.2. Tmax was 100.1 at midnight. Has been afebrile since. CT chest on 05/20 had shown bilateral lower lobe consolidation and atelectasis, persistent R middle lobe multifactorial patchy densities, new mild patchy ground glass opacities within both upper lobes, diffuse infiltrates and small pleural effusions. 05/20: Day #7 Zosyn. WBC trending down from 16.1 to 11.8. Patient has been afebrile since 2 PM yesterday and satting in the 90s on room air. CXR today shows no significant change, bibasilar opacities and cardiomegaly status-quo. Blood cx show NGTD x 24 hours. 05/19 D#6 Zosyn. WBC up slightly B/C and f/u CXR pending - ordered by pulmonary Resp status improve - extubated on NC 05/18: Day #5 of zosyn. CXR was similar to prior. Please see under assessment #1. Continue to monitor clinically. 05/17: Likely secondary from reflux of gastric contents/secretions from NG tube. Continue zosyn. Day #4. (10) Acute respiratory failure with hypoxia Status: Resolved Response to Treatment: Stable Problem Text: 05/28: It is likely that these acute respiratory events were the related to the K pneumoniae pneumonia. Will continue to monitor. 05/27: O2 saturation is 99% on 2L NC. May be able to wean down to 1L via NC today. Will plan on placing nursing order for this. 05/26: O2 saturation has remained in the low 90s at 2L NC. Will consider increasing O2 to 3 L. Will discuss with attending physician for need for this. Patient does not seem to have a prior hx of COPD however. 05/25: Stable O2 saturations in the 90s on 2L NC. 05/24/18: Remains on O2 vial nasal cannula to maintain saturations of >90% 05/23: Patient's O2 saturation was 93% on 2L nasal cannula. Have instructed staff to titrate patient's O2 above 90%, but not too high so as to avoid oxygen toxicity. Patient is still having net negative diuresis of 2.831 liters yesterday and -1.4 liters today. Is having good urine output: 1.99 mL/kg/hr. Weight is down from 67.9 kg to 66.4 kg today. Still on lasix 40 mg q6h IV. His lungs sound much clearer to me today. I believe his respiratory status has clinically improved from prior. Will continue santacruz for now to monitor net negative diuresis until this is complete. Also has epidural for pain control. 05/22: Hypoxia secondary to pulmonary edema secondary to diastolic CHF/volume overload. Patient had net negative diuresis of at least 2 liters yesterday. His O2 saturation has improved and he is requiring less oxygen than 2 days ago. He is now on 2 liters O2 via nasal cannula from 6 liters previously. 05/20: Improved. Is satting in the 90s on room air without significant work of breathing. Is in NAD. Still mildly tachypneic with RR in the low 20s. 05/19 - successfully tolerated extubation - on NC today - Per Pulmonary 05/18: Trial of weaning off ventilator was not predictive of success for extubation. Dr. Hays will be performing another trial today. 05/17: Patient went into acute hypoxic respiratory failure status-post surgery y esterday. Remained intubated and was placed on mechanical ventilation. Dr. Hays will be trying to wean patient to assess weather his SBI will go to <104 and if patient can take deep and slow breaths which would indicate success if patient were to be extubated. She will determine this today. He may be able to be extubated either today or tomorrow. Plan/VTE VTE Prophylaxis Ordered?: Yes (Enoxaparin 40 mg SC, TEDs and Sequentials.) Plan/Urinary Catheter Urinary Catheter: D/C Santacruz Reason for insertion/continuin: Critical Pt monitoring Plan IVF: Decrease VS, I&O, 24H, Fishbone Vital Signs/I&O Vital Signs Date Time Temp Pulse Resp B/P (MAP) Pulse Ox O2 Delivery O2 Flow Rate FiO2 06/08/18 09:42 82 159/70 06/08/18 06:00 97.9 20 95 Room Air I&O- Last 24 Hours up to 6 AM 06/08/18 06:00 Intake Total 1320 ml Output Total 2100 ml Balance -780 ml Laboratory Data 24H LABS Laboratory Tests 2 06/08/18 06:14: Immature Granulocyte % (Auto) 1.4, White Blood Count 11.1H, Red Blood Count 2.93L, Hemoglobin 8.7L, Hematocrit 26.0L, Mean Corpuscular Volume 88.7, Mean Corpuscular Hemoglobin 29.7, Mean Corpuscular Hemoglobin Concent 33.5, Red Cell Distribution Width 12.9, Platelet Count 336, Neutrophils (%) (Auto) 76.1H, Lymphocytes (%) (Auto) 15.1L, Monocytes (%) (Auto) 5.4H, Eosinophils (%) (Auto) 1.6, Basophils (%) (Auto) 0.4, Neutrophils # (Auto) 8.5H, Lymphocytes # (Auto) 1.7, Monocytes # (Auto) 0.6, Eosinophils # (Auto) 0.2, Basophils # (Auto) 0.1, Nucleated Red Blood Cells % (auto) 0.0, Anion Gap 5L, Glomerular Filtration Rate > 60.0, Blood Urea Nitrogen 14, Creatinine 0.78, Sodium Level 136, Potassium Level 3.7, Chloride Level 101, Carbon Dioxide Level 30, Calcium Level 8.9 CBC/BMP Laboratory Tests 06/08/18 06:14 Red Blood Count 2.93 L, Mean Corpuscular Volume 88.7, Mean Corpuscular Hemoglobin 29.7, Mean Corpuscular Hemoglobin Concent 33.5, Red Cell Distribution Width 12.9, Neutrophils (%) (Auto) 76.1 H, Lymphocytes (%) (Auto) 15.1 L, Monocytes (%) (Auto) 5.4 H, Eosinophils (%) (Auto) 1.6, Basophils (%) (Auto) 0.4, Neutrophils # (Auto) 8.5 H, Lymphocytes # (Auto) 1.7, Monocytes # (Auto) 0.6, Eosinophils # (Auto) 0.2, Basophils # (Auto) 0.1, Calcium Level 8.9 GME ATTESTATION GME ATTESTATION My faculty preceptor for this patient encounter was Dr. Nancy Middleton, and was physically present during the encounter and was fully available. All aspects of the patient interview, examination, medical decision making process, and medical care plan development were reviewed and approved by the faculty preceptor. The faculty preceptor is aware and concurs with the plan as stated in the body of this note and will attest to such by his/her cosignature. BERYL JO DO Jun 08, 2018 12:07
[2018-06-08 14:00] VITALS: BP 135/64
[2018-06-08] MEDS: SIMETHICONE 80 MG CHEW TAB PO PRN ×2 (15:53→18:31)
--- NOTE | 2018-06-08 20:39 | IPN ---
DATE: 06/08/2018 HISTORY The patient is now 23 days postop from surgery for his bowel obstruction. He is doing well and now requires only to recover enough strength for discharge. Vital signs: Show that he is afebrile with a pulse in the 80s and a good blood pressure. Intake and output yesterday: He had 1140 in with 1900 out. His urine output today has been good. His ostomy is functioning well. PHYSICAL EXAMINATION The patient is resting quietly in bed. He is comfortable. Heart and lung exam is unremarkable and the abdomen is flat and soft. Laboratory studies today showed a white count of 11, hemoglobin 9, hematocrit 26 and platelet count of 336. Differential count shows 76% neutrophils, 15% lymphocytes and 5% monocytes. Chemistry profile showed normal electrolytes, BUN, creatinine and glucose of 104. IMPRESSION The patient is doing well. PLAN He should continue with his physical therapy and try to increase his activity as tolerated. His physical therapy note from today indicates that they do not feel that he is safe for discharge at this time. TANNER
[2018-06-08 22:00] VITALS: BP 146/76
[2018-06-09] MEDS: NORCO, ANEXSIA 5/325MG TABLET (HYDROcodone/ACETAMINOPHEN) PO PRN ×3 (02:06→20:15)
[2018-06-09 06:00] VITALS: BP 136/68
[2018-06-09] MEDS: SLF 3 ML SYR IV SCH ×3 (06:00→20:15)
[2018-06-09 06:05] LABS: BASO % 0.4 % (0.0-1.0); EOS # 0.2 10^3/uL (0.0-0.50); EOS % 1.6 % (0.0-3.0); HEMATOCRIT 25.8 % (42.0-52.0); HEMOGLOBIN 8.6 g/dl (13.5-17.5); LYMPH # 2.3 10^3/uL (1.5-4.5); LYMPH % 25.3 % (24.0-44.0); MEAN CORPUSCULAR HEMOGLOBIN 29.7 pg (27.0-33.0); MEAN CORPUSCULAR HGB CONC 33.3 g/dl (32.0-36.5); MONO # 0.6 10^3/uL (0.0-0.8); MONO % 6.8 % (0.0-5.0); NEUTROPHILS # 5.9 10^3/uL (1.8-7.7); NEUTROPHILS % 64.7 % (36.0-66.0); PLATELET COUNT, AUTOMATED 337 10^3/uL (150-450); WHITE BLOOD COUNT 9.2 10^3/uL (4.0-10.0)
[2018-06-09 06:36] LABS: BLOOD UREA NITROGEN 13 MG/DL (7-18); CALCIUM LEVEL 8.6 MG/DL (8.8-10.2); CARBON DIOXIDE LEVEL 30 MEQ/L (21-32); CHLORIDE LEVEL 98 MEQ/L (98-107); CREATININE FOR GFR 0.87 MG/DL (0.70-1.30); GLOMERULAR FILTRATION RATE > 60.0 (>42); GLUCOSE, FASTING 129 MG/DL (70-100); POTASSIUM SERUM 3.6 MEQ/L (3.5-5.1); SODIUM LEVEL 135 MEQ/L (136-145)
[2018-06-09] MEDS: IPRATROPIUM 0.5MG/ALBUTEROL 2.5MG INH SOL UD 3ML (DUONEB)(J7620) NEB SCH ×4 (07:26→20:00)
[2018-06-09] MEDS: PANTOPRAZOLE 40MG TAB (PROTONIX) PO SCH (09:16)
[2018-06-09] MEDS: amLODIPine 5 MG TAB PO SCH (09:16)
[2018-06-09] MEDS: guaiFENesin ER 600 MG TAB PO SCH ×2 (09:16→20:15)
[2018-06-09] MEDS: ENOXAPARIN 40 MG/0.4 ML SYRINGE (J1650) SC SCH (09:17)
[2018-06-09] MEDS: ACYCLOVIR 5% OINT 15GM TOP SCH ×4 (09:17→20:15)
--- NOTE | 2018-06-09 11:03 | IPNPDOC ---
Subjective Date Seen The patient was seen on 06/09/18. Subjective Chief Complaint/HPI Pt this morning without new concerns. He states that he is feeling well and feels he cont to improve daily. General: Reports: Fatigue Constitutional: Denies: Chills, Fever ENT: Denies: Head Aches Pulmonary: Denies: Dyspnea, Cough Cardiovascular: Denies: Chest Pain, Palpitations Gastrointestinal: Denies: Nausea, Vomiting, Diarrhea Neurological: Reports: Weakness Psych: Reports: Mood Normal Objective Physical Examination General Exam: Positive: Alert, Cooperative, No Acute Distress ENT Exam: Positive: Atraumatic Neck Exam: Positive: Supple; Negative: JVD Chest Exam: Positive: Clear to auscultation; Negative: Normal air movement (decreased), Rales, Rhonchi, Wheezing Heart Exam: Positive: Rate Normal, Regular Rhythm, Normal S1, Normal S2; Negative: Murmurs Abdomen Exam: Positive: Normal bowel sounds, Soft, Other (ileostomy site with output); Negative: Tenderness (Abdomen nondistended. Abdominal bandage at incisonal site not stained. ) Extremity Exam: Negative: Clubbing, Cyanosis, Edema Skin Exam: Positive: Nl turgor and temperature; Negative: Rash Neuro Exam: Positive: Normal Speech Psych Exam: Positive: Mental status NL, Mood NL (euthymic affect.), Oriented x 3 Assessment /Plan Problems (1) Status post exploratory laparotomy Status: Acute Response to Treatment: Stable Problem Text: 06/09 POD24, Medically stable, will plan to follow from af[place], I spoke with Dr Mcdaniel plans to transition the pt to [facility] today. 06/08/18: POD # 23. Seems to be tolerating a soft diet, but uncertain whether he is tolerating a regular diet as he ate cream of wheat this morning. Will continue to monitor nutrition. Rest of management as per General Surgery. Was working with PT this AM and still needs physical therapy for strengthening and mobility as per General Surgery note. Likely, this is what is holding up his discharge. 06/06/18: POD # 21. Tolerating somewhat of a regular diet. Stated he had scrambled eggs this AM without difficulty of digestion or abdominal discomfort. Continue to monitor nutrition. Continue management as per General Surgery. Has been cleared by PT yesterday 06/05/18 to be safe to discharge home. 06/05: POD #20. Has been advanced to a regular diet. However, he reported that he had some trouble with his diet yesterday. He ate cream of wheat and reverted back to that today. States that it suited him more today. Continue soft diet for now and advance diet as tolerated. Patient also reported that he felt a bit distended last night and was also gassy. Simethicone was started which seems to be helping as per patient. Continue management as per Gen. surgery. 06/03: POD #18. Has been advanced to a soft diet. Was in the process of eating cheerios cereal this AM. Spoke to Dr. Fernández to consider d/ce'ing santacruz catheter and we were on the same page. He already d/ce'd it. Rest of management as per General Surgery. 06/02: POD #17. Still on full liquids diet now. Tolerated an entire bowel of cream of wheat again today. Recommend for General Surgery to look into consid ering d/ce'ing santacruz catheter. Patient is having good urine output. May consider advancing diet to regular tomorrow. Management per General Surgery. Will also transfer patient from PCU to [facility] and d/c telemetry as patient has been consistently sinus rhythm or sinus tach. 06/01: POD # 16. On full liquids diet now. Management per General Surgery. NG tube is still out and santacruz is still in. 05/29 Post- op D13 Mgmt per GS. On clear liquid diet. 05/28: Post-op day #12. Abdominal exam similar to yesterday, slightly more bowel sounds noticed. surface grinder tender to palpation of RUQ and RLQ with mid- abdominal tenderness. Continue PT. Surgery is managing the pain control. 05/27: Post-op day #11. Abdominal exam similar to yesterday. surface grinder tender to palpation of RUQ and RLQ with mid-abdominal tenderness. Continue PT. Continue pain control, which seems controlled this AM. 05/26: Post-op day #10. Abdomen less distended today and patient reports less bloating and abdominal pain today subjectively. However, distillery miller helper to palpation of RUQ and RLQ as well as mid-abdominal region. Patient, still has ileus and I have encouraged PT to work with patient to continue to help him. Pain control as per General Surgery. I see that they have added toradol to current pain regimen. Pain seems to be controlled enough today. 05/25: Post-op day #9. NG tube has been placed back by Dr. Ontiveros. Still has output in ileostomy. According to CT scan of chest/abdomen/pelvis, it seems patient still has ileus and is unable to get rid of the fluid in his abdomen and bladder. Have ordered nursing to place santacruz back in to help relieve fluid from pelvic region/ tract. Likely recovery will be a very slow course and ileus will take longer time to reverse. Still encourage working with PT to help with ileus. Continue management as per General Surgery. Pain control as per General Surgery. 05/24/18: Post-op day #8. Patient is tolerating full liquid diet. Good output in his ileostomy. General surgery still following. He continues to work with PT 05/23: Post-op day #7. NG tube was discontinued today. Is still having good ileostomy output and is still on TPN. Abdomen appropriately slightly tender to palpation in mid-abdominal region today at incisional site. Still with hypoactive bowel sounds. 05/22: Post-op day #6. Management as per General Surgery. Still on TPN and has NG tube that is still having output. Ileostomy output is still good. Abdomen nontender to palpation today, but still with hypoactive bowel sounds. Will reorder PT/OT today. 05/20: Is post-operative day #4. Still on TPN with K and Mg replacement as per General Surgery. Has increased output from ileostomy site now which has improved. Abdomen still distended but not as tender to palpation--improving. Still hypoactive bowel sounds on auscultation. 05/19 - per surgery On TPN 05/18: Post-operative day #2. Patient on TPN. Minimal output from ileostomy site. Will likely have prolonged course of ileus. Still diffusely tender to palpation of abdomen, but is appropriate and soft. Important to rule out postoperative fever as patient has been having fevers with Tmax of 101.2 yesterday at noontime. Consider UA. CXR from today showed: There is pleuroparenchymal opacity again noted in the left base obscuring the left hem idiaphragm as before. There is slight haziness in the right base which may reflect a small amount of right pleural fluid. Will watch for signs of pneumonia. Currently on day 5 of zosyn. 05/17: Patient is status-post exploratory laparotomy, lysis of adhesions, repair of enterotomy and serosal tears, release of bowel obstruction post-op day #1. Apparently, surgery took around 7 hours and patient is in need of ventilator support at this time post-surgery. General surgery is following and managing the SBO and Brake Operator is consulted to help further manage respiratory support. (2) SBO (small bowel obstruction) Status: Resolved Response to Treatment: Improving Problem Text: 06/08/18: POD # 23. Management as per Gen Surg. 06/06/18: POD #21. Needs recounseling about managing his own ostomy which he has been taught prior to hospitalization apparently. Dr. Garrett has counseled him today about managing his own ADLs and to not rely on the nursing staff to make sure he gains his independence enough back to go home and take care of himself. Rest of counseling and management as per General Surgery. 06/05: POD #20. Please see above. Continue management as per Gen. surgery. 06/03: POD #18: Advanced to soft diet. Will see if tolerates this. Management per General Surgery. 06/02: POD #17. Tolerating full liquids diet still. Consider advancing diet tomorrow. Dietary consult in place as well. Rest of management up to General Surgery. 06/01: POD #16. Is now without NG tube and tolerating a full liquids diet. Had cream of wheat today without problems, nausea, vomiting. Continue management as per General Surgery. Have encouraged patient to continue to work with PT as much as possible and get up and out of bed. Have encouraged patient to intake as much nutrition as he can tolerate for energy. 05/28: POD #12. He was able to go without an NG tube today, and tried a few small things, but found out that drinking soda still is probably not a good idea. 05/27: Post-op day #11: Continue to encourage PT. OT and ARU consult ordered yesterday. Management as per General Surgery: continue NG tube decompression. Keep NPO for now. Need to confirm whether patient needs TPN ordered now however for nutritional support. 05/26: Post-op day #10: Management as per General Surgery. Still suffering from ileus as per yesterday's CT abd/pelvis scan. Have encouraged PT to work with patient more to help with ileus. Have also ordered OT and ARU consult as patient was able to do well with PT yesterday. Please see HPI for details. 05/25: Post-op day #9: Management as per General Surgery. 05/24/18: Post-op day #8. Management per General surgery 05/23: Post-Op day #7. Management as per General Surgery. Have encouraged PT/OT and ordered this yesterday so that it can help with patient's post-op ileus. 05/22: Post-Op day #6. Management as per General Surgery. 05/20: Management as per General Surgery, now Dr. Lloyd Valente. Patient is post- op day #4. Spoke briefly to Dr. Valente who states that NG tube will not be removed today. Patient is still having a moderate amount of NG tube output, and it will still take some more time to decompress bowel. 05/18: Dr. Ontiveros of general surgery following and managing. Post-op day #2. 05/17: Status-post exp laparotomy, lysis of adhesions, and release of bowel obstruction post-operative day 1. Is on epidural fentanyl for post-operative pain control. TPN will be started by Dr. Ontiveros today and there is anticipated prolonged course of ileus until return of normal bowel function. This problem is being managed by Dr. Ontiveros of surgery. He seems to be making some improvement with the NG tube drainage, but is still pretty uncomfortable. Will defer to surgery for further management of this problem. (3) Klebsiella pneumoniae pneumonia Status: Resolved Response to Treatment: Improving Discussed With: Patient, Family with Pt Consent Problem Specific Plan: Consult Specialist Problem Text: 06/08/18: Resolved. Lungs clear to auscultation today. WBC remains stable at 11.1 today. 06/06/18: Meropenem was d/ce'd yesterday. WBC has slightly decreased to 11.4 from 11.8 yesterday. Patient's pneumonia has been adequately treated with antibiotics. Lungs are clear to auscultation. He has clinically improved. Will continue to monitor CBC and clinically for now. 06/05: On day #11 of meropenem. White blood cell count is stable at 11.8 today. Patient's status has clinically improved. Continue meropenem and monitor CBC. Continue to monitor clinically for now. 06/03: On day #9 of meropenem alone. WBC unfortunately went back up today at 12.2 (H) from 9.8 yesterday. If WBC continues to increase, patient may need more imaging for further evaluation of another source of infection. Last CXR was 8 days ago, last abdominal x-ray was 4 days ago, last CT abd/pelvis was 9 days ago. Consider restarting patient on vancomycin if WBC climbs as patient was d/ce'd on this 2 days ago. 06/02: On day #8 of meropenem. Vancomycin d/ce'd yesterday--looks like as per Dr. Wilkins. Will continue meropenem as this does cover klebsiella. Since patient is clinically improving, will not repeat CXR at this time. Blood cx so far negative. Catheter tip cx show no growth aerobically. WBC is WNL still at 9.8 which is encouraging. Patient is feeling like he can breathe better as well. Den ies much of a cough but still has it with mucous production. Continue to monitor CBC and clinically. 06/01: On day # 7 of meropenem and day # [address] Mcdaniel wanted to do a CXR to check up on pneumonia. However, I did not see this done or ordered. I will plan on ordering this after talking to attending physician if he recommends it. WBC down to WNL at 10 today. Continue current antibiotic regimen. Patient slowly starting to look improved. 05/29 Meropenam D4, prev on Zosyn, resp status improved, slight bump in WBC today, monitor. 05/28 The sputum cx (that was taken while the patient was on Zosyn) grew Klebsiella pneumoniae which had intermediate sensitivity (only) for the Zosyn. He was changed to meropenem two days ago and has been feeling better since then. Continue meropenem for now. (4) Low hemoglobin Status: Acute Problem Text: 06/08/18: Hgb 8.7 (L) today. Stable. Continue to monitor CBC. Hgb mainly always in 8's range. 06/06/18: Hgb is slightly decreased today at 8.3 from 8.9 yesterday. Seems stable. Will continue to monitor CBC as Hgb has been fluctuating in the 8's range during hospitalization. 06/05: Hemoglobin stable today at 8.9 from 8.2 yesterday. Continue to monitor CBC. 06/03: Hgb stable at 8.5 today. Continue to monitor CBC. 06/02: Patient's hemoglobin went up to 8.6 today. Stable. Does not appear patient actually got any RBC transfusion yesterday. Will continue to monitor CBC. 06/01: Patient's Hgb was 8.2 today and 8.2 yesterday. It is stable. However, he is getting 1 unit of PRBC transfusion today as per General Surgery. Will continue to monitor CBC. Patient very weak and fatigued appearing. May benefit from this transfusion. No evidence of GI bleed thus far. 05/28: His Hb has been relatively stable since the transfusion. This is good news, but we continue to need to look closely at his Hb to make sure it doesn't acutely drop again. 05/27: Hgb dropped down to 6.7* yesterday at 18:25 unfortunately. Patient had to be transfused 2 units PRBCs and Hgb this AM was 8.2. Will recheck H&H next at 1643. Will transfuse as necessary. Continue to monitor H&H PRN and CBC daily. Drop in Hgb etiology not identified as of yet. DDx includes gastric ulcer, intraabdominal process post-surgically, GI bleed somewhere else, PUD, vs. heparin anticoagulation patient is on etc. 05/26: Hgb unfortunately dropped down to 7.5 today from 9.2 yesterday which is a drastic drop. I have ordered a repeat H&H at 1700 today. 05/25: Hgb was 9.2 today which is encouraging. Continue to monitor CBC. 05/24/18: Hgb 8.1 today. We will continue to monitor 05/23: Patient's Hgb last night was 7.9 and did not drop below 7.9 from yesterday AM. This morning, Hgb was 8.4. It is thus stable. We will continue to monitor his CBC and hold off on transfusion for now. 05/22: Patient's Hgb dropped down to 7.9. Will need to keep an eye on this and will recheck CBC in 12 hours from the one performed earlier today: at 1722. Nursing to call provider if repeat CBC shows Hgb <7.7. (5) Hypertension Status: Chronic Response to Treatment: Stable Problem Specific Plan: Monitor Clinically Problem Text: 06/08/18: BP 159/70 and stable. 06/05: Blood pressure stable and was 146/74 today. Continue to monitor. 06/03: BP stable and was 146/75 this AM. 06/02: BP stable and was 149/71 today. 06/01: BP is stable and controlled. No hypotensive episodes overnight. Continue to monitor. Encourage PO hydration. Not on any IVF any longer. NG tube is out. 05/27: BP well controlled. No other episodes of hypotension noted yesterday. Continue to monitor. Lactated Ringer's IVF still running @ 50 mLs/hr. 05/26: BP well controlled today at 132/96. However, I was concerned patient mi t have been developing some signs of sepsis yesterday as I did notice upon review of VS from yesterday, patient became hypotensive at one point to 76/40 at 12 PM, 98/44 at 13:05, 101/58 at 15:01, and 103/54 at 1600. Today, BP was 132/96 and is much improved. Patient also has become tachycardic since yesterday with HR's running from 101-110. Has also remained tachypneic with RR running into 20s-25. Will continue to monitor. Is receiving lactated ringer's IVF 1000 mL @ 50 mLs/hr. 05/25: Well controlled. Continue to monitor. 05/24/18: Remains well controlled 05/23: Stable and controlled. 05/22: Stable and controlled. BP was 124/60 today. 05/20: Stable and controlled. BP 140/69 today. 05/18: stable and controlled. Not on any antihypertensives. 05/17: BP well controlled without any antihypertensives. At this time, will hold any antihypertensives. His BP is well controlled at this time. Continue current regimen. (6) Physical deconditioning Status: Acute Response to Treatment: Improving Problem Text: 06/08/18: Have continued to encourage patient to work with PT as he seems physically deconditioned and unstable for discharge to home at this time until he gains back mobility/strength. 06/05: Have encouraged patient to continue to work with physical therapy for strengthening and mobility. 06/03: Strongly encouraged patient to continue to work with PT for physical strengthening and mobility. 06/02: Patient needs to continue to work with PT for physical strengthening and mobility. Transferring to 4 P[facility] as there are no acute issues or need for patient to be on PCU any longer. Will d/c telemetry as well. (7) Hypomagnesemia Status: Resolved Problem Text: 05/27: Mg level WNL at 2.2. 05/26: Mg level was low at 1.6 today. Have replaced with Mg Sulfate Runs x 2. Will recheck Mg level at 1700. (8) Acute kidney injury Status: Resolved Problem Text: 06/05: Renal function within normal limits today. Continue to monitor BMP. 06/03: Renal fx WNL today. 06/02: Renal fx still WNL. 06/01: Renal fx is WNL now and AXEL has indeed resolved. 05/27: Renal fx improving. BUN 46 (H) and Cr has trended down to 1.64 (H) today from 1.91 (H) yesterday. Vanc trough level today was WNL at 19.6. 05/26: BUN and Cr unfortunately have trended up and were 45 and 1.91 respectively from 23 and 1.91 yesterday. I suspect this may have to do with possible supratherapeutic dose of vancomycin as the vanc trough level was elevated today at 32.1. Will speak to attending physician and possibly talk to pharmacy regarding adjusting dose for renally dosing the vanco. 05/25: BUN 23 and Cr 1.06. Kidney fx stable. GFR >60. Continue to monitor. 05/24/18:BUN/Cre 22/1.09, GFR > 60, remains stable 05/23: Cr 1.18 and stable. Continue monitoring via BMP. On lasix for diuresis. 05/22: Creatinine stable. Monitor renal fx due to risk of kidney injury from diuresis with lasix. 05/20: Creatinine continuing to improve and is down to 1.13 from 1.25 yesterday. 05/19 - Crea continues to improve. Na+ 151, K+ low this am Surgery managing IVF and electrolyte replacement 05/18: Cr improved today to 1.52 from 1.60 yesterday. Continue to monitor BMP. Is getting IV hydration and TPN which is a concern for 3rd spacing of fluid. Does have trace edema in bilateral lower extremities. Dr. Hays was recommending to try some lasix. 05/17: Creatinine bumped up to 1.60 today with GFR lower at 44.7 from yesterday and is likely from severe dehydration from bowel obstruction. Will continue to monitor BMP and continue IV hydration as necessary. His BUN is down a little, but his creatinine is up. Overall his GFR is down a little more today. Will continue the IV hydration and monitor. I believe that he was significantly dehydrated by the time he was admitted. (9) Aspiration pneumonitis Status: Resolved Problem Text: 05/28: It isn't certain if he has an aspiration pneumonitis or not, but he does have K. pneumoniae pneumonia and the treatment can be the same for these, especially guided by a sensitivity. 05/27: Zosyn d/ce'd yesterday. Added meropenem 1 gm q12h IV and is day #2 of [address] per Dr. Wilkins's recommendations from ID. Day #7 of Vancomycin. WBC encouragingly has trended back down to normal at 9.6. However, patient did spike a temperature of 100.5 at 23:59 last night. Will continue to monitor labs and clinically. Dr. Wilkins has ordered UA (patient has santacruz catheter), new blood cx x 2, and gram stain & sputum cx yesterday. UA was unremarkable. Blood cx are pending x 2. Sputum cx and gram stain show many WBCs, few epithelial cells, moderate gram (-) rods, and few gram (+) cocci in chains. CXR performed yesterday showed bibasilar pleuroparenchymal opacities. 05/26: Day #13 Zosyn and Day #6 of Vancomycin. WBC encouragingly is trending down and was down to 14.6 today. Will consult ID for any possible further recommendations for Dr. Wilkins. Has remained afebrile. 05/25: Day #12 Zosyn and Day #5 of Vancomycin. WBC is unfortunately trending up and up to 17.6 today. Suspect that patient has another source of infection other than abdominal abscess that may not be clear to us right now. Will consider ID consult with Dr. Wilkins if WBC goes up tomorrow. Afebrile all throughout 05/24/18 as well. 05/24/18: Remains on Zosyn (started on 05/14/18) and on Vancomycin (started on 05/21/19). WBC 11.2, T-max of 102.9 at 23:59 on 05/23/18. BC remain negative after 72 hours. Reports continued cough with sputum production. I will discuss with attending about repeat Chest x-ray and/or sputum culture 05/23: Day #10 of Zosyn and Day #3 of Vancomycin. WBC trending down to 10.5. Tmax was 100.7 at midnight last night. Currently, patient has been afebrile since. 05/22: Post-operative fevers likely secondary to aspiration pneumonia vs. multifocal pneumonia (HCAP). Day #9 of Zosyn and was begun on Vancomycin yesterday for more broad spectrum coverage. WBC trending down to 12.2. Tmax was 100.1 at midnight. Has been afebrile since. CT chest on 05/20 had shown bilateral lower lobe consolidation and atelectasis, persistent R middle lobe multifactorial patchy densities, new mild patchy ground glass opacities within both upper lobes, diffuse infiltrates and small pleural effusions. 05/20: Day #7 Zosyn. WBC trending down from 16.1 to 11.8. Patient has been afebrile since 2 PM yesterday and satting in the 90s on room air. CXR today shows no significant change, bibasilar opacities and cardiomegaly status-quo. Blood cx show NGTD x 24 hours. 05/19 D#6 Zosyn. WBC up slightly B/C and f/u CXR pending - ordered by pulmonary Resp status improve - extubated on NC 05/18: Day #5 of zosyn. CXR was similar to prior. Please see under assessment #1. Continue to monitor clinically. 05/17: Likely secondary from reflux of gastric contents/secretions from NG tube. Continue zosyn. Day #4. (10) Acute respiratory failure with hypoxia Status: Resolved Response to Treatment: Stable Problem Text: 05/28: It is likely that these acute respiratory events were the related to the K pneumoniae pneumonia. Will continue to monitor. 05/27: O2 saturation is 99% on 2L NC. May be able to wean down to 1L via NC today. Will plan on placing nursing order for this. 05/26: O2 saturation has remained in the low 90s at 2L NC. Will consider increasing O2 to 3 L. Will discuss with attending physician for need for this. Patient does not seem to have a prior hx of COPD however. 05/25: Stable O2 saturations in the 90s on 2L NC. 05/24/18: Remains on O2 vial nasal cannula to maintain saturations of >90% 05/23: Patient's O2 saturation was 93% on 2L nasal cannula. Have instructed staff to titrate patient's O2 above 90%, but not too high so as to avoid oxygen toxicity. Patient is still having net negative diuresis of 2.831 liters yesterday and -1.4 liters today. Is having good urine output: 1.99 mL/kg/hr. Weight is down from 67.9 kg to 66.4 kg today. Still on lasix 40 mg q6h IV. His lungs sound much clearer to me today. I believe his respiratory status has clinically improved from prior. Will continue santacruz for now to monitor net negative diuresis until this is complete. Also has epidural for pain control. 05/22: Hypoxia secondary to pulmonary edema secondary to diastolic CHF/volume overload. Patient had net negative diuresis of at least 2 liters yesterday. His O2 saturation has improved and he is requiring less oxygen than 2 days ago. He is now on 2 liters O2 via nasal cannula from 6 liters previously. 05/20: Improved. Is satting in the 90s on room air without significant work of breathing. Is in NAD. Still mildly tachypneic with RR in the low 20s. 05/19 - successfully tolerated extubation - on NC today - Per Pulmonary 05/18: Trial of weaning off ventilator was not predictive of success for extubation. Dr. Hays will be performing another trial today. 05/17: Patient went into acute hypoxic respiratory failure status-post surgery yesterday. Remained intubated and was placed on mechanical ventilation. Dr. Hays will be trying to wean patient to assess weather his SBI will go to <104 and if patient can take deep and slow breaths which would indicate success if patient were to be extubated. She will determine this today. He may be able to be extubated either today or tomorrow. Plan/VTE VTE Prophylaxis Ordered?: Yes (Enoxaparin 40 mg SC, TEDs and Sequentials.) Plan/Urinary Catheter Urinary Catheter: D/C Santacruz Reason for insertion/continuin: Critical Pt monitoring Plan IVF: Decrease VS, I&O, 24H, Fishbone Vital Signs/I&O Vital Signs Date Time Temp Pulse Resp B/P (MAP) Pulse Ox O2 Delivery O2 Flow Rate FiO2 06/09/18 09:16 78 136/68 06/09/18 06:00 97.8 20 96 Room Air I&O- Last 24 Hours up to 6 AM 06/09/18 06:00 Intake Total 1590 ml Output Total 1725 ml Balance -135 ml Laboratory Data 24H LABS Laboratory Tests 2 06/09/18 05:42: Immature Granulocyte % (Auto) 1.2, White Blood Count 9.2, Red Blood Count 2.90L, Hemoglobin 8.6L, Hematocrit 25.8L, Mean Corpuscular Volume 89.0, Mean Corpuscular Hemoglobin 29.7, Mean Corpuscular Hemoglobin Concent 33.3, Red Cell Distribution Width 13.1, Platelet Count 337, Neutrophils (%) (Auto) 64.7, Lymphocytes (%) (Auto) 25.3, Monocytes (%) (Auto) 6.8H, Eosinophils (%) (Auto) 1.6, Basophils (%) (Auto) 0.4, Neutrophils # (Auto) 5.9, Lymphocytes # (Auto) 2.3, Monocytes # (Auto) 0.6, Eosinophils # (Auto) 0.2, Basophils # (Auto) 0.0, Nucleated Red Blood Cells % (auto) 0.0, Anion Gap 7L, Glomerular Filtration Rate > 60.0, Blood Urea Nitrogen 13, Creatinine 0.87, Sodium Level 135L, Potassium Level 3.6, Chloride Level 98, Carbon Dioxide Level 30, Calcium Level 8.6L CBC/BMP Laboratory Tests 06/09/18 05:42 Red Blood Count 2.90 L, Mean Corpuscular Volume 89.0, Mean Corpuscular Hemoglobin 29.7, Mean Corpuscular Hemoglobin Concent 33.3, Red Cell Distribution Width 13.1, Neutrophils (%) (Auto) 64.7, Lymphocytes (%) (Auto) 25.3, Monocytes (%) (Auto) 6.8 H, Eosinophils (%) (Auto) 1.6, Basophils (%) (Auto) 0.4, Neutrophils # (Auto) 5.9, Lymphocytes # (Auto) 2.3, Monocytes # (Auto) 0.6, Eosinophils # (Auto) 0.2, Basophils # (Auto) 0.0, Calcium Level 8.6 L RENÉE MAI PA-C Jun 09, 2018 11:03
[2018-06-09] MEDS: SIMETHICONE 80 MG CHEW TAB PO PRN ×2 (15:32→20:14)
--- NOTE | 2018-06-09 20:47 | IPN ---
DATE: 06/09/2018 HISTORY Patient is recovering from his extensive lysis of adhesions for small bowel obstruction and ensuing pneumonia. He is currently doing very well. His dietary intake is improved and his ostomy is functioning well. He has been working with physical therapy and apparently has been scheduled for a rehabilitation placement up at the [facility] [place] to start on TuesdayJune 12. Vital signs: Show that he has been afebrile over the past 24 hours. His intake and output shows yesterday 1470 in with 2300 out. Examination shows an older man appearing somewhat thin and frail, lying in the hospital bed. He is alert and oriented. Heart exam shows a regular rhythm and the lungs are clear. His ostomy bag is half full of liquid stool. LABS: Laboratory studies today showed a white count of 9, hemoglobin 9, hematocrit of 26 and platelet count of 337,000. Differential count is normal for the first time in quite awhile with 65% neutrophils, 25% lymphocytes and 7% monocytes. Chemistry profile showed a sodium of 135, but otherwise normal electrolytes. BUN and creatinine are normal with a glucose of 129. IMPRESSION The patient is now doing very well with his return of ostomy function and resolution of his pneumonia. He continues with physical therapy. PLAN The patient will be placed on an ALC status and can be transferred to the rehab program on Tuesday. I spoke with Soni Panda about the patient's ongoing medical care and they will sign off at this time as there are no currently active medical problems.
[2018-06-10] MEDS: NORCO, ANEXSIA 5/325MG TABLET (HYDROcodone/ACETAMINOPHEN) PO PRN ×2 (00:54→19:38)
[2018-06-10 06:00] VITALS: BP 135/73
[2018-06-10] MEDS: SLF 3 ML SYR IV SCH ×3 (06:00→21:35)
[2018-06-10] MEDS: IPRATROPIUM 0.5MG/ALBUTEROL 2.5MG INH SOL UD 3ML (DUONEB)(J7620) NEB SCH ×4 (08:00→21:01)
[2018-06-10] MEDS: ACYCLOVIR 5% OINT 15GM TOP SCH ×4 (09:05→20:50)
[2018-06-10] MEDS: ENOXAPARIN 40 MG/0.4 ML SYRINGE (J1650) SC SCH (09:05)
[2018-06-10] MEDS: PANTOPRAZOLE 40MG TAB (PROTONIX) PO SCH (09:05)
[2018-06-10] MEDS: amLODIPine 5 MG TAB PO SCH (09:05)
[2018-06-10] MEDS: guaiFENesin ER 600 MG TAB PO SCH ×2 (09:05→20:50)
[2018-06-10 14:00] VITALS: BP 134/65
[2018-06-10] MEDS: SIMETHICONE 80 MG CHEW TAB PO PRN (20:52)
[2018-06-11] MEDS: NORCO, ANEXSIA 5/325MG TABLET (HYDROcodone/ACETAMINOPHEN) PO PRN ×5 (00:30→21:06)
[2018-06-11] MEDS: SLF 3 ML SYR IV SCH ×3 (05:54→21:06)
[2018-06-11 06:00] VITALS: BP 138/67
[2018-06-11] MEDS: amLODIPine 5 MG TAB PO SCH (07:54)
[2018-06-11] MEDS: PANTOPRAZOLE 40MG TAB (PROTONIX) PO SCH (07:55)
[2018-06-11] MEDS: guaiFENesin ER 600 MG TAB PO SCH ×2 (07:55→21:06)
[2018-06-11] MEDS: ENOXAPARIN 40 MG/0.4 ML SYRINGE (J1650) SC SCH (07:55)
[2018-06-11] MEDS: ACYCLOVIR 5% OINT 15GM TOP SCH ×4 (07:56→21:06)
[2018-06-11] MEDS: IPRATROPIUM 0.5MG/ALBUTEROL 2.5MG INH SOL UD 3ML (DUONEB)(J7620) NEB SCH ×4 (08:47→20:25)
[2018-06-11] MEDS: SIMETHICONE 80 MG CHEW TAB PO PRN ×2 (12:34→16:44)
[2018-06-11] MEDS: LACTOBACILLUS ACIDOPHILUS CAP (BACID) PO SCH (17:35)
[2018-06-12 06:00] VITALS: BP 137/75
[2018-06-12] MEDS: SLF 3 ML SYR IV SCH ×2 (06:08→08:14)
[2018-06-12 08:12] VITALS: BP 137/75
[2018-06-12] MEDS: PANTOPRAZOLE 40MG TAB (PROTONIX) PO SCH (08:12)
[2018-06-12] MEDS: amLODIPine 5 MG TAB PO SCH (08:12)
[2018-06-12] MEDS: LACTOBACILLUS ACIDOPHILUS CAP (BACID) PO SCH (08:12)
[2018-06-12] MEDS: guaiFENesin ER 600 MG TAB PO SCH (08:12)
[2018-06-12] MEDS: SIMETHICONE 80 MG CHEW TAB PO PRN (08:12)
[2018-06-12] MEDS: NORCO, ANEXSIA 5/325MG TABLET (HYDROcodone/ACETAMINOPHEN) PO PRN (08:13)
[2018-06-12] MEDS: ENOXAPARIN 40 MG/0.4 ML SYRINGE (J1650) SC SCH (08:13)
[2018-06-12] MEDS: ACYCLOVIR 5% OINT 15GM TOP SCH (08:14)
[2018-06-12] MEDS: IPRATROPIUM 0.5MG/ALBUTEROL 2.5MG INH SOL UD 3ML (DUONEB)(J7620) NEB SCH (09:28)
[2018-06-12] MEDS ORDERED: MUCI600T37 PO (09:32)
[2018-06-12] MEDS ORDERED: SIME80TA PO (09:32)
[2018-06-12] MEDS ORDERED: PANT40TA3 PO (09:32)
--- NOTE | 2018-06-12 12:42 | DS.PDOC ---
Discharge Summary General Date of Admission May 12, 2018 at 16:04 Date of Discharge 06/12/2017 Primary Care Physician: Temo Kasper MD Attending Physician: SUNNY AVALOS MD Specialist/Consultants Involve: GODFREY PRIETO Specialist/Consultants Involve Nadia Wilkins (Infectious Disease) Discharge Summary PROCEDURES PERFORMED DURING STAY: exploratory Laparotomy, lysis of adhesion, release of SBO, repairs of enterotomy (05/16/2018) ADMITTING DIAGNOSES: 1. Small bowel obstruction 2. Acute renal failure from dehydration 3. Mild elevation of the troponin without any chest pain 4. Hypertension 5. History of colorectal cancer status post total abdominal colectomy with ileostomy DISCHARGE DIAGNOSES: 1. Small bowel obstruction from intra-abdominal adhesions status post expiratory laparotomy, lysis of adhesions and repair of enterotomy. Small bowel obstruction resolved 2. History of colorectal cancer status post total abdominal colectomy with ileostomy 3. Acute renal failure on top of chronic kidney disease resolved 4. Pneumonia, aspiration resolved 5. Deconditioning 6. Acute respiratory failure with hypoxia resolved 7. Hypertension 8. Anemia postoperative, improved status post transfusion of 4 units packed RBCs COMPLICATIONS/CHIEF COMPLAINT: Small Bowl Obstruction. HISTORY OF PRESENT ILLNESS: Patient was brought to the emergency room via EMS with complaints of 3-4 day history of lack of ileostomy output, abdominal distention, crampy abdominal pain centered over the left lower abdomen, weakness. Patient has a long-standing ileostomy following surgery for his colorectal cancer.( He denies any adjuvant chemoradiation given to him). He reports prior history of bowel obstruction. He has been hospitalized at least twice which mostly resolved with nonoperative therapy. Last episode was more than a few years ago. He reports for the past 3-4 days he has not had any ileostomy output. Started having abdominal pain and distention and subsequently nausea and vomiting. He tried to wait it out as his previous bowel obstructions have resolved on their own. He took some laxatives with no effect. He has been vomiting overnight and felt weak, hard to stand and maintained balance thus EMS was called and he was brought to the emergency room. In the emergency room his blood pressure has been slightly soft with the lowest recorded being 90's systolic which responded with administration of 2 L of IV fluids. The nasogastric tube was placed and he drained immediately more than 1 200 ML's of black-colored fluid. He was subsequently found to have evidence for bowel obstructions as I was called in for management. HOSPITAL COURSE: I saw and evaluated the patient in the emergency room. A nasogastric tube was placed draining immediately 1200 ML's of black dark colored fluid with patient reporting relief of the abdominal discomfort. He looked very dehydrated as he is about a 3 day history of this abdominal discomfort and lack of ileostomy output. He has had a prior total abdominal colectomy and ileostomy more than 20 years ago for pressure will be rectal cancer. He denies having any radiation therapy afterwards. He has had previous bowel obstructions that resolved nonoperatively. Noticeable in his presentation is the presence of acute renal failure with his BUN up 88 and creatinine of 2.32. Lactic acid was also 10.7. He was admitted at the progressive care unit for close observation. He was given brisk IV fluid hydration with 2 L of IV fluid given as a bolus and he was maintained at 200 ML's and our. A Little catheter was placed for monitoring. The following day he seems to be clinically improving likewise he was making increased urine output. He is significant nasogastric tube output. We initially made plans of bringing him to the operating room especially given the fact that there is persistent high nasogastric tube output more than a liter day. The following day his ileostomy seems to be started working so we held off on the surgery. Later that day, patient was noted to be hypoxic. Nurses also reporting suctioning of some similar-looking material from his mouth that is coming out from nasogastric tube. Currently being followed by his primary care group. He was ruled out for pulmonary embolism but he was found to have evidence for pneumonitis. This was pressure Dominique from aspiration. He was placed on a nonrebreather with improvement of his saturations. He was started on IV Zosyn for the aspiration. I have asked Dr. Hays to evaluate him and help with his management. Particular concern include need for prolonged intubation with or without surgery. He continued to have high nasogastric tube output with only minimal output from his ileostomy while gradually improving with his saturation. At this point we decided to bring him to the operating room. He was brought to the OR on 05/16/2018. He underwent expiratory laparotomy. He proved to have multiple bowel adhesions to the abdominal wall and with the bowels as well as to the retroperitoneum and the small bowel coming down to the depth of the pelvis. We were able to successfully lysed his adhesions and free up the bowel obstruction. He has had some enterotomies repaired. He was given 2 units of packed RBCs. He was kept intubated. He was also on a small amount of vasopressor coming out but this was able to be weaned off in the postoperative care unit. I placed a central line for TPN which was started the following day. Postoperatively he gradually improved and remained stable. We were able to extubate him by postop day 3. His pain control was maintained with an epidural catheter which was placed preoperatively and was continued up to postop day 8. Continued to be on occasional BiPAP. He was maintained on IV antibiotics likewise TPN while waiting ileostomy output. He was slow to improve in terms of his breathing. He was very deconditioned physically and he started working with physical therapy. His nasogastric tube was eventually discontinued at postoperative day 6. I slowly advanced his diet once he is adequate ileostomy output. Initially he seems to be able to tolerate diet. At about postoperative day 9 he started having abdominal distention likewise vomiting. A repeat of the CT chest abdomen and pelvis was done. He either had continuation of bowel obstruction or just persistent ileus. He had nasogastric tube placed back in with improvement of his abdominal discomfort and distention. He has evidence of consolidation on the repeat chest CT and Dr. macias from infectious disease was consulted and his IV antibiotics was suggested with the Zosyn discontinued and replaced by meropenem. Rest of the hospital course consisted of slow and gradual improvement with return of his ileostomy output. The nasogastric tube was discontinued by Dr. Mcdaniel on 05/29/2018 (postop day 13). His ileostomy continues to function and he was slowly and gradually advanced to his diet. He continues to work with physical therapy recommending short-term rehabilitation and thus he was arranged to transfer to [facility] for recovery. DISCHARGE MEDICATIONS: Please see below. ALLERGIES: Please see below. PHYSICAL EXAMINATION ON DISCHARGE: VITAL SIGNS: Please see below. GENERAL: Comfortable HEENT: Mild pale palpebral conjunctiva, lips and mucosa moist NECK: Supple, no jugular venous distention, no lymphadenopathy CARDIOVASCULAR EXAMINATION: Regular heart rate and rhythm RESPIRATORY EXAMINATION: Clear breath sounds to auscultation bilaterally ABDOMINAL EXAMINATION: Flat, soft, midline incision healing accordingly. Right lower quadrant ostomy functioning. Nontender on palpation EXTREMITIES: Minimal residual lower extremity edema SKIN: Warm and dry, no rashes NEUROLOGICAL EXAMINATION: Awake, alert, oriented PSYCHIATRIC EXAMINATION: LABORATORY DATA: Please see below. IMAGING: Multiple CT abdomen and pelvis, chest PROGNOSIS: Fair ACTIVITY: As tolerated. DIET: As tolerated DISCHARGE PLAN: Patient is discharged to [facility] follow-up with me in 2 weeks DISPOSITION: [facility]. DISCHARGE INSTRUCTIONS: 1. As above. Follow-up in 2 weeks ITEMS TO FOLLOWUP ON ON OUTPATIENT: 1. None DISCHARGE CONDITION: Stable. TIME SPENT ON DISCHARGE: Greater than 30minutes. Vital Signs/I&Os Vital Signs Date Time Temp Pulse Resp B/P (MAP) Pulse Ox O2 Delivery O2 Flow Rate FiO2 06/12/18 08:43 18 Room Air 06/12/18 08:12 73 137/75 06/12/18 06:00 98.3 97 I&O- Last 24 Hours up to 6 AM 06/12/18 06:00 Intake Total 1020 ml Output Total 630 ml Balance 390 ml Discharge Medications Scheduled Amlodipine Besylate (Amlodipine Besylate) 5 Mg Tab, 5 MG PO DAILY, (Reported) Guaifenesin (Mucinex) 600 Mg Tab, 600 MG PO BID Hydrochlorothiazide W/Triamter (Triamterene/Hydrochloroth 37.5-25 mg) 1 Cap Cap, 1 CAP PO DAILY, (Reported) Multivitamins *[facility] STOCKED* (Thera M Plus *[facility] STOCKED*) 1 Tab Tab, 1 TAB PO DAILY, (Reported) Pantoprazole Sodium (Pantoprazole Sodium) 40 Mg Tab, 40 MG PO DAILY Scheduled PRN Acetaminophen/Codeine (Acetaminophen/Codeine 300-30 mg) 1 Tab Tab, 2 TAB PO Q6H PRN for PAIN, (Reported) Simethicone (Simethicone) 80 Mg Chew, 80 MG PO TIDP PRN for GAS PAIN Tramadol HCl (Tramadol HCl) 50 Mg Tab, 50 MG PO BID PRN for PAIN, (Reported) Allergies Coded Allergies: No Known Allergies (Unverified , 02/27/18) SUNNY AVALOS MD Jun 12, 2018 12:42
== END 2018-06-12 10:05 | DRG 329 ==
LOC: M ED 12:51 → EDBD 12:51 → M ED INP 16:04 → M PCU 19:47 → M ICU 05-16 22:13 → M MSPAV 05-20 16:06 → M PCU 05-20 17:58 → M MS5PR 06-02 15:21
PROVIDERS: ADMIT Surgery; ATTEND Surgery
PROC: 0DN80ZZ Release Small Intestine, Open Approach (ICD-10-PCS; 2018-05-16)
PROC: 0DQU0ZZ Repair Omentum, Open Approach (ICD-10-PCS; 2018-05-16)
PROC: 02HV33Z Insertion of Infusion Device into Superior Vena Cava, Percutaneous Approach (ICD-10-PCS; 2018-05-16)
PROC: 30233N1 Transfusion of Nonautologous Red Blood Cells into Peripheral Vein, Percutaneous Approach (ICD-10-PCS; 2018-05-16)
PROC: 0DQ80ZZ Repair Small Intestine, Open Approach (ICD-10-PCS; principal; 2018-05-16 07:30)
DX: K56.50 Intestinal adhesions [bands], unspecified as to partial versus complete obstruction (principal); J69.0 Pneumonitis due to inhalation of food and vomit; J15.0 Pneumonia due to Klebsiella pneumoniae; J95.821 Acute postprocedural respiratory failure; N17.9 Acute kidney failure, unspecified; E87.0 Hyperosmolality and hypernatremia; E87.3 Alkalosis; E46 Unspecified protein-calorie malnutrition; K56.7 Ileus, unspecified; E86.0 Dehydration; I10 Essential (primary) hypertension; Z93.2 Ileostomy status; Z85.038 Personal history of other malignant neoplasm of large intestine; Z85.048 Personal history of other malignant neoplasm of rectum, rectosigmoid junction, and anus; Z79.899 Other long term (current) drug therapy; Z87.891 Personal history of nicotine dependence; E87.6 Hypokalemia; Z53.31 Laparoscopic surgical procedure converted to open procedure; E83.42 Hypomagnesemia

== ENCOUNTER → 2018-06-14 | Outpatient (REF) | payer MEDICARE ==
[2018-06-13 10:01] LABS: HEMATOCRIT 32.9 % (42.0-52.0); HEMOGLOBIN 10.6 g/dl (13.5-17.5); MEAN CORPUSCULAR HEMOGLOBIN 29.6 pg (27.0-33.0); MEAN CORPUSCULAR HGB CONC 32.2 g/dl (32.0-36.5); MEAN CORPUSCULAR VOLUME 91.9 fl (80.0-96.0); PLATELET COUNT, AUTOMATED 406 10^3/uL (150-450); RED BLOOD COUNT 3.58 10^6/uL (4.30-6.10); WHITE BLOOD COUNT 10.2 10^3/uL (4.0-10.0)
[2018-06-13 10:31] LABS: BLOOD UREA NITROGEN 13 MG/DL (7-18); CALCIUM LEVEL 8.8 MG/DL (8.8-10.2); CARBON DIOXIDE LEVEL 29 MEQ/L (21-32); CHLORIDE LEVEL 97 MEQ/L (98-107); CREATININE FOR GFR 1.04 MG/DL (0.70-1.30); GLOMERULAR FILTRATION RATE > 60.0 (>42); GLUCOSE, FASTING 120 MG/DL (70-100); POTASSIUM SERUM 3.9 MEQ/L (3.5-5.1); SODIUM LEVEL 135 MEQ/L (136-145)
[~2018-06-14] MED LIST changes: +ACET1TAB16 PO; +MUCI600T37 PO; +PANT40TA3 PO; +SIME80TA PO; +TRIA37.53 PO; +VITMTA PO
== END ==
PROVIDERS: ATTEND Family Medicine
DX: I10 Essential (primary) hypertension (principal)

== ENCOUNTER → 2018-06-20 | Outpatient (REF) ==
[2018-06-20 10:07] LABS: HEMATOCRIT 28.9 % (42.0-52.0); HEMOGLOBIN 9.4 g/dl (13.5-17.5); MEAN CORPUSCULAR HEMOGLOBIN 29.6 pg (27.0-33.0); MEAN CORPUSCULAR HGB CONC 32.5 g/dl (32.0-36.5); MEAN CORPUSCULAR VOLUME 90.9 fl (80.0-96.0); PLATELET COUNT, AUTOMATED 279 10^3/uL (150-450); RED BLOOD COUNT 3.18 10^6/uL (4.30-6.10); WHITE BLOOD COUNT 9.1 10^3/uL (4.0-10.0)
[2018-06-20 10:27] LABS: BLOOD UREA NITROGEN 14 MG/DL (7-18); CALCIUM LEVEL 8.8 MG/DL (8.8-10.2); CARBON DIOXIDE LEVEL 32 MEQ/L (21-32); CHLORIDE LEVEL 98 MEQ/L (98-107); CREATININE FOR GFR 0.88 MG/DL (0.70-1.30); GLOMERULAR FILTRATION RATE > 60.0 (>42); GLUCOSE, FASTING 96 MG/DL (70-100); POTASSIUM SERUM 3.8 MEQ/L (3.5-5.1); SODIUM LEVEL 137 MEQ/L (136-145)
== END ==
PROVIDERS: ATTEND Family Medicine
DX: I10 Essential (primary) hypertension (principal)

== ENCOUNTER → 2018-08-01 | Outpatient (REF) | payer MEDICARE | LOC: M SFHCCLAY 14:03 | PROVIDERS: ATTEND Family Medicine | DX: R39.89 Other symptoms and signs involving the genitourinary system (principal); Z53.8 Procedure and treatment not carried out for other reasons ==

== ENCOUNTER → 2018-08-14 | Outpatient (REF) | payer MEDICARE ==
[2018-08-14 12:10] LABS: AMORPHOUS SEDIMENT SMALL (NEGATIVE); APPEARANCE, URINE TURBID (CLEAR); BACTERIA, URINE AUTO NEGATIVE (NEGATIVE); BILIRUBIN, URINE AUTO NEGATIVE (NEGATIVE); BLOOD, URINE BLOOD NEGATIVE (NEGATIVE); COLOR, URINE YELLOW (YELLOW); GLUCOSE, URINE (UA) AUTO NEGATIVE (NEGATIVE); KETONE, URINE AUTO NEGATIVE (NEGATIVE); LEUKOCYTE ESTERASE, URINE AUTO 3+ (NEGATIVE); NITRITE, URINE AUTO NEGATIVE (NEGATIVE); PROTEIN, URINE AUTO 2+ mg/dL (NEGATIVE); RBC, URINE AUTO 32 /HPF (0-3); SPECIFIC GRAVITY URINE AUTO 1.013 (1.002-1.035); SQUAMOUS EPITHELIAL CELL UR AU 0 /HPF (0-6); UROBILINOGEN, URINE AUTO 0.2 mg/dL (0.0-2.0); WBC, URINE AUTO TNTC /HPF (0-3)
== END ==
LOC: M LABSMT 09:26
PROVIDERS: ATTEND Nurse Practitioner Family
DX: R82.90 Unspecified abnormal findings in urine (principal)

== ENCOUNTER → 2018-10-10 | Outpatient (CLI) | payer MEDICARE ==
--- NOTE | 2018-10-11 11:38 | RADONC ---
RADIATION ONCOLOGY CONSULTATION NOTE DATE: 10/10/2018 CHART #: [id number] DIAGNOSIS: Esophagogastric junction cancer. STAGE: Unknown. ECOG PERFORMANCE STATUS: 0. CONSULTATION NOTE: Mr. 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 HISTORY OF PRESENT ILLNESS: The patient's history dates back to the 1970s when he reported that he developed a diagnosis of lymphoma throughout his body which was quite massive including grapefruit sized axillary lymph nodes. This was treated with some type of Adriamycin containing chemotherapy regimen. He did well and went into remission. In 1981, the patient developed colon cancer and was treated with colectomy and end ileostomy. He continues to have his colostomy present. Apparently. he did well until the summer of 2017, last year, when he detected a mass in his left testicle region. On 02/20/2018, an ultrasound was done and showed a 5 cm x 4 cm mass in the left testicle. There was a left-sided hydrocele present. In 02/2018, CT of the abdomen and pelvis was undertaken and confirmed the left testicle mass. There was no abnormal pelvic or intra-abdominal lymphadenopathy present. There was however an inguinal lymph node on the right which was 1.2 cm in size. On 03/01/2018, the patient underwent left radical orchiectomy. 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 Extent of disease workup was undertaken including ultrasound of the inguinal areas on 03/28/2018. He showed peripherally hypoechoic centrally echogenic nodules bilaterally consistent with lymph nodes. The one on the right measured 1.4 cm and the one on the left 0.8 cm. On 04/19/2018, a PET CT scan was undertaken and showed multiple right-sided internal iliac lymph nodes, the largest measuring 1.5 cm with an SUV value of 7.2. There were external iliac lymph nodes with the largest measuring 1.5 cm as well and an SUV value of 7.4. The right inguinal lymph node also measured 1.5 cm and had an SUV value of 6.7. In May, the patient was seen by a medical oncologist and it was recommended that he undergo a biopsy of his inguinal lymph node on the right. 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 On 08/24/2018, a new PET scan was done and showed increased uptake in the gastroesophageal junction area with uptake in the lymph node chains below the diaphragm. There was also some increased uptake in a right lower lung nodule. Because of the uptake seen on PET scan, an EGD was done on 09/01/2018. There was found to be a large ulcerating mass at the GE junction from approximately 40-42 cm. The GE junction was at 42 cm. 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 A staging CT was undertaken and showed an increase in esophageal wall thickening extending into the gastric cardia. There was also a slight increase in the right iliac chain lymphadenopathy with what appeared to be a now largely necrotic right inguinal lymph node which had increased in size as well. The patient is now being referred to us for consideration of nara adjuvant chemo RT after which he would be considered for surgical resection of his adenocarcinoma of the gastroesophageal junction. PAST MEDICAL HISTORY: The patient's past medical history as above is positive for numerous malignancies. He has no history of radiation therapy in the past, but did have surgery as well as chemotherapy. He has a history as well as of hypertension. ALLERGIES: The patient has NO KNOWN DRUG ALLERGIES. SOCIAL HISTORY: The patient had smoked one pack of cigarettes per day for 10 years. He quit in 1971. He does not abuse alcohol. FAMILY HISTORY: The patient's family history is positive for a grandfather with colon cancer. REVIEW OF SYSTEMS: The patient's review of systems is positive for some hearing loss but is otherwise noncontributory. Denies nausea, vomiting, fevers, chills, night sweats, diplopia, headaches, anxiety or depression, anorexia, weight loss, visual disturbances, chest pain, urinary or bowel difficulties, bone pain, or neurological problems. PHYSICAL EXAMINATION: The patient is a well-developed, well-nourished white male in no acute distress. HEENT: Exam is normocephalic, atraumatic. Extraocular movements are intact. There is no palpable cervical, supraclavicular, infraclavicular or axillary lymphadenopathy present. There is a 4 cm, hard fixed right inguinal lymph node palpable. There is no left inguinal lymphadenopathy present. The patient lungs are clear to auscultation and percussion. His heart has a regular rate and rhythm. His abdomen is benign with no hepatosplenomegaly, masses or tenderness. He has an ostomy present consistent with his above history. Skeletal examination reveals no tenderness to pressure or percussion of the bony skeleton. Extremities reveal no clubbing, cyanosis or edema. ASSESSMENT: I believe the patient is a candidate for external beam radiation therapy combined with chemotherapy as a therapeutic option. He is scheduled to see the medical oncologist today and I will confirm that appointment. In addition, I am placing this patient on our list for discussion at our multidisciplinary tumor conference. Further recommendations will be made pending that conference. Thank you for referring this patient to us. I will keep you informed as to any new developments as they occur. As always warm regards. cc: MD Temo Armenta MD Bakhti Sinor, MD
== END ==
LOC: M ONCR 08:49
PROVIDERS: ATTEND Radiology Radiation Oncology
DX: C16.0 Malignant neoplasm of cardia (principal)

== ENCOUNTER 2018-10-25 14:07 | Outpatient (RCR) | payer MEDICARE ==
--- NOTE | 2018-10-17 12:30 | RADONC ---
RADIATION ONCOLOGY SIMULATION NOTE DATE: 10/17/2018 CHART #: [id number] DIAGNOSIS: Esophagogastric junction cancer. STAGE: Unknown. ECOG PERFORMANCE STATUS: 0. SIMULATION NOTE: The patient was brought into the simulation room where upon an immobilization device was fabricated to immobilize the patient and thusly enable his treatments to be more precise on a day-to-day basis. He underwent the immobilization device construction without discomfort or incident. Thereafter, 3 mm images were obtained through the thorax and upper abdomen. The patient tolerated the procedure quite well with no significant untoward side effects or events. The appropriate images will be contoured and a treatment plan generated. I was there during the entire simulation process. cc: MD Temo Armenta MD Bakhti Sinor, MD
[2018-10-25 15:09] LABS: HEMATOCRIT 27.7 % (42.0-52.0); HEMOGLOBIN 9.2 g/dl (13.5-17.5); LYMPH % 29.5 % (24.0-44.0); MEAN CORPUSCULAR HEMOGLOBIN 30.7 pg (27.0-33.0); MEAN CORPUSCULAR HGB CONC 33.2 g/dl (32.0-36.5); MEAN CORPUSCULAR VOLUME 92.3 fl (80.0-96.0); NEUTROPHILS # 5.7 10^3/uL (1.8-7.7); NEUTROPHILS % 63.5 % (36.0-66.0)
[2018-11-03] MEDS ORDERED: SLOWTAB2 PO (16:43)
[2018-11-06] MEDS ORDERED: PROC10TA4 PO (08:51)
[2018-11-06] MEDS ORDERED: ONDA8TAB7 PO (08:51)
[2018-11-06] MEDS ORDERED: LOPE2CA PO (08:51)
== END 2018-11-03 ==
LOC: M ONCR 14:07
PROVIDERS: ATTEND Radiology Radiation Oncology
DX: C16.0 Malignant neoplasm of cardia (principal)

== ENCOUNTER → 2018-10-27 | Outpatient (CLI) | payer MEDICARE ==
[~2018-10-27] MED LIST changes: +BUPIVACAINE HCL 0.5% 10 ML VIAL As Ordered ONE; +LIDOCAINE 2% MDV 20 ML VIAL As Ordered ONE; +LOPE2CA PO; +ONDA8TAB7 PO; +PROC10TA4 PO; +SLOWTAB2 PO; +ceFAZolin 1GM INJ (J0690 PER 500MG) As Ordered ONE
--- NOTE | 2018-11-11 12:39 | REPIR ---
DATE OF PROCEDURE: 10/27/2018 ATTENDING SURGEON: Talha Isaacs MD ASSISTANTS: Sher Ocampo and Libby Boswell PREOPERATIVE DIAGNOSES: Gastroesophageal cancer, tobacco use, history of testicular cancer, history of B-cell lymphoma. POSTOPERATIVE DIAGNOSES: Gastroesophageal cancer, tobacco use, history of testicular cancer, history of B-cell lymphoma. PROCEDURE: Ultrasound and fluoroscopic-guided 25 cm Port-A-Cath placement. INDICATION: The patient is a 78-year-old male who requires access for chemotherapy and undergo placement of a Port-A-Cath. ANESTHESIA: Local with 20 mL of 2% lidocaine mixed with 0.5% Marcaine. FLUORO TIME: 0.1 minutes. CONTRAST: None. COMPLICATIONS: None. DRAINS: None. SPECIMENS: None. PROCEDURAL ANTIBIOTICS: 2 grams of Ancef. DESCRIPTION OF PROCEDURE: The patient was taken to the angiography suite, placed supine on the angiography room table, and then prepped and draped in a standard surgical fashion. Ultrasound was used guide cannulation of the right internal jugular vein, which was sequentially dilated under fluoroscopic guidance. A catheter was advanced through the introducer sheath and positioned with the tip in the superior vena cava right atrial junction. It was then tunneled through the right anterior chest wall and connected to the port. The port was placed in a previously-created pocket in the right chest. The port was aspirated, noted to aspirate easily, and then flushed with heparinized saline. The port was decanalized, and the incisions were closed using 3-0 Monocryl in inverted interrupted fashion. Steri-Strips and dressings were applied. The patient tolerated the procedure well. All instrument, sponge, and needle counts were correct at the end of the case.
== END | disposition home or self-care (01) ==
LOC: M IRPRO 11:02
PROVIDERS: ATTEND Internal Medicine Medical Oncology
DX: C16.0 Malignant neoplasm of cardia (principal); Z72.0 Tobacco use; Z85.47 Personal history of malignant neoplasm of testis; Z85.79 Personal history of other malignant neoplasms of lymphoid, hematopoietic and related tissues
CPT/HCPCS: 36561; 77001; C1788; C1894; J0690

== ENCOUNTER 2018-12-01 12:59 | Outpatient (RCR) | payer MEDICARE ==
--- NOTE | 2018-11-14 06:44 | RADONC ---
RADIATION ONCOLOGY PROGRESS NOTE DATE: 11/13/2018 CHART #: [id number] Mr. Stanley is presently at a dose of 1080 cGy to his GE junction and is tolerating treatments quite well at this point with no complaints related to his radiation therapy. He is having no increased difficulty swallowing or other problems at this time. REVIEW OF SYSTEMS: The patient's review of systems is positive for weakness but overall is otherwise generally noncontributory. Denies nausea, vomiting, fevers, chills, night sweats, diplopia, headaches, anxiety or depression, anorexia, weight loss, visual disturbances, chest pain, urinary or bowel difficulties, bone pain, or neurological problems. PHYSICAL EXAMINATION: The patient's skin is in good condition with no evidence of moist or dry desquamation. The remainder of his physical exam remains unchanged. Mr. Stanley is clinically doing well and radiation will continue as scheduled.
--- NOTE | 2018-11-21 07:40 | RADONC ---
RADIATION ONCOLOGY PROGRESS NOTE DATE: 11/20/2018 CHART NUMBER: [id number] Mr. Stanley is presently at a dose of 1960 cGy to his gastroesophageal region and is tolerating treatments quite well with no complaints related to his radiation therapy. He is having no significant increase in discomfort. REVIEW OF SYSTEMS: The patient's review of systems is noncontributory. Denies nausea, vomiting, fevers, chills, night sweats, diplopia, headaches, anxiety or depression, anorexia, weight loss, visual disturbances, chest pain, urinary or bowel difficulties, bone pain, or neurological problems. PHYSICAL EXAMINATION: The patient's skin is in good condition with no evidence of radiation change present. There is no moist or dry desquamation. The remainder of his physical exam remains unchanged. Mr. Stanley is tolerating his treatments quite well and radiation will continue as scheduled.
--- NOTE | 2018-11-28 11:45 | RADONC ---
RADIATION ONCOLOGY PROGRESS NOTE DATE OF SERVICE: 11/27/2018 CHART NUMBER: [id number]. 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 His current dose is 2880 cGy of an anticipated 4500 cGy. He seems to be tolerating therapies reasonably well with the exception of poor nutritional intake resulting in an 11-pound weight loss. REVIEW OF SYSTEMS: He denies any nausea, vomiting but has had some diarrhea. Denies dysuria, hematuria, or blood per rectum. His energy level is such that he is able to maintain most day-to-day activities without any alteration of his lifestyle. The remainder of the review of systems is unchanged. EXAMINATION FINDINGS: Reveal a slim gentleman who is a well-developed but poorly-nourished. Skin: The skin within the irradiated volume shows neither erythema nor desquamation. Lymphatics: No palpable peripheral lymphadenopathy. The remainder of the physical examination is unchanged. IMPRESSION: Tolerating therapy well. PLAN: Treatments to continue.
[~2018-12-01 12:59] MED LIST changes: -BUPIVACAINE HCL 0.5% 10 ML VIAL As Ordered ONE; -LIDOCAINE 2% MDV 20 ML VIAL As Ordered ONE; -ceFAZolin 1GM INJ (J0690 PER 500MG) As Ordered ONE
== END 2018-12-03 ==
LOC: M ONCR 12:59
PROVIDERS: ATTEND Radiology Radiation Oncology
DX: C16.0 Malignant neoplasm of cardia (principal)

== ENCOUNTER 2018-12-12 12:56 | Outpatient (RCR) | payer MEDICARE ==
--- NOTE | 2018-12-05 06:43 | RADONC ---
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 He has been eating more this last week and has actually gained 3 pounds. He feels better. There are 4 more treatments to go to complete his entire prescribed dose of radiotherapy. He seems to be tolerating multimodality therapies reasonably well. REVIEW OF SYSTEMS: He specifically denies any significant nausea, vomiting, odynophagia, dysphagia, diarrhea, dysuria, hematuria or blood per rectum. His energy level is such that he is able to maintain most day-to-day activities without any alteration of his lifestyle. The remainder of the review of systems is unchanged. EXAMINATION: Reveals a slender male who is well-developed, but poorly-nourished.. Skin: The skin within the irradiated volume shows neither erythema nor desquamation. Lymphatics: No palpable peripheral lymphadenopathy. Lungs: Clear yet distant. The remainder of the physical examination is unchanged. IMPRESSION: Tolerating therapy reasonably well with a 3 pound weight loss this week. PLAN: Treatments to continue. MTDD
--- NOTE | 2018-12-11 16:28 | RADONC ---
RADIATION ONCOLOGY PROGRESS NOTE DATE: 12/11/2018 CHART NUMBER: [id number] PROGRESS NOTE: Mr. Stanley is presently at a dose of 4320 cGy to his GE junction and is tolerating treatments quite well at this point with no significant difficulties related to his radiation therapy. He is having no significant increased difficulty swallowing or other problems at the present time. REVIEW OF SYSTEMS: The patient's review of systems is positive for his difficulty swallowing but is otherwise noncontributory. Denies nausea, vomiting, fevers, chills, night sweats, diplopia, headaches, anxiety or depression, anorexia, weight loss, visual disturbances, chest pain, urinary or bowel difficulties, bone pain, or neurological problems. PHYSICAL EXAMINATION: The patient's skin is in good condition with no evidence of moist or dry desquamation. The remainder of his physical exam remains unchanged. Mr. Stanley is tolerating treatments quite well and radiation will continue as scheduled.
[~2018-12-12 12:56] MED LIST changes: +ONDA8TAB10 PO; -ONDA8TAB7 PO
--- NOTE | 2018-12-13 11:08 | RADONC ---
RADIATION ONCOLOGY TREATMENT SUMMARY DATE: 12/12/2018 CHART NUMBER: [id number] DIAGNOSIS: Esophagogastric junction cancer. ECOG PERFORMANCE STATUS: 0 TREATMENT SUMMARY: Mr. 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 We treated the patient to his lower esophagus and GE junction for a dose of 4500 cGy delivered in 25 fractions of 180 cGy each over 36 elapsed days from 11/06/2018 through 12/12/2018. The patient's esophagus and gastric region was treated on a linear accelerator utilizing a 15 MV photon beam via 3-D conformal technique with anterior posterior lateral dong. Mr. Stanley tolerated his treatments quite well and was able to complete therapy as prescribed without interruption. I have scheduled the patient to see me again in 1 month for further followup. He will also continue to be followed by his other physicians as well. He will be seen in [place] to discuss his surgical options. cc: MD Jeffrey Shearer MD Stephen Hochwald Sara McGee, MD Kevin Robillard, MD Jack Rush, MD Tammy A. Sessanna, SAMANTHA
== END 2019-01-03 ==
LOC: M ONCR 12:56
PROVIDERS: ATTEND Radiology Radiation Oncology
DX: C16.0 Malignant neoplasm of cardia (principal)

== ENCOUNTER → 2019-01-23 | Outpatient (CLI) | payer MEDICARE ==
[~2019-01-23] MED LIST changes: -ONDA8TAB10 PO; +ONDA8TAB7 PO
--- NOTE | 2019-01-26 08:11 | RADONC ---
RADIATION ONCOLOGY FOLLOWUP NOTE DATE: 01/23/2019 CHART NUMBER: [id number] DIAGNOSIS: Esophagogastric junction cancer. ECOG PERFORMANCE STATUS: 0. FOLLOWUP NOTE: Mr. Stanley is a very pleasant 78-year-old white male with the diagnosis of esophagogastric junction carcinoma who is presenting to us today for routine followup visit 1 month post completion of external beam radiation therapy. The patient presents today reporting that he is doing very well. He is able to swallow and eat solids and soft foods. He is having no trouble with either. He is in no pain and has no other complaints. The patient's review of systems is noncontributory. He denies nausea, vomiting, fevers, chills, night sweats, diplopia, headaches, anxiety or depression, anorexia, weight loss, visual disturbances, chest pain, urinary or bowel difficulties, bone pain, or neurological problems. PHYSICAL EXAMINATION: The patient is a well-developed, well-nourished male in no acute distress. HEENT exam is normocephalic, atraumatic. Extraocular movements are intact. There is no palpable cervical, supraclavicular, infraclavicular, axillary, or inguinal lymphadenopathy present. Lungs are clear to auscultation and percussion. Heart has a regular rate and rhythm. Abdomen is benign with no hepatosplenomegaly, masses, or tenderness. Rectal examination reveals a normal anal sphincter tone. Skeletal examination reveals no tenderness to pressure or percussion of the bony skeleton. Extremities reveal no clubbing, cyanosis, or edema. Neurologic exam is grossly intact as is the remainder of the physical examination. ASSESSMENT: The patient is clinically doing quite well at this point and his acute symptoms post radiation have resolved. The patient is scheduled to see his surgeon in [place] on February 22. PET scans and further evaluations are scheduled for that visit prior to any decision with regards to surgery. The patient is also going to be under the close management and followup of his medical oncologist, Dr. Kelli Amanda. In light of the patient's close followup and management with his surgeon and medical oncologist, I have discharge this patient from my followup except on an as needed basis. CC: Natalee Chavarria RN cc: MD Mannie Phillips MD Kevin Robillard, MD Jack Rush, MD
== END ==
LOC: M ONCR 12:53
PROVIDERS: ATTEND Radiology Radiation Oncology
DX: C16.0 Malignant neoplasm of cardia (principal)
CPT/HCPCS: G0463 ×2

== ENCOUNTER → 2019-08-07 | Outpatient (CLI) | payer MEDICARE ==
[~2019-08-07] MED LIST changes: +GASTROGRAFIN SOLUTION 30ML (Q9963) As Ordered ONE; +ISOVUE-370 76% 100ML VIAL (Q9967) As Ordered ONE; +ONDA8TAB10 PO; -ONDA8TAB7 PO
--- NOTE | 2019-08-07 16:17 | REPVR ---
PROCEDURE INFORMATION: Exam: CT Abdomen And Pelvis Without And With Contrast Exam date and time: 08/07/2019 3:47 PM Age: 79 years old Clinical indication: Condition or disease; Other: Lymphoma; Follow-up oncological assessment; No known metastasis; Current or recent treatment: Chemotherapy; Additional info: Esophogeal CA compare CT [id number] pet from [place] TECHNIQUE: Imaging protocol: Computed tomography of the abdomen and pelvis without and with intravenous contrast. Radiation optimization: All CT scans at this facility use at least one of these dose optimization techniques: automated exposure control; mA and/or kV adjustment per patient size (includes targeted exams where dose is matched to clinical indication); or iterative reconstruction. Contrast material: ISO 370; Contrast volume: 100 ml; Contrast route: IV; Other contrast: Oral; COMPARISON: CT CHEST/ABD/PELVIS W/ CONTRAST - OUTSIDE PRIOR 09/27/2018 8:42 AM FINDINGS: Pleural space: Left pleural effusion and left lower lobe airspace disease. Coronary artery calcification. Wall thickening in the nondistended distal esophagus. Liver: No focal hepatic mass. Gallbladder and bile ducts: Septated gallbladder. Pancreas: Combined biliary and pancreatic ductal dilatation, which can be better characterized with MRCP or ERCP, as clinically indicated. Spleen: No splenomegaly. Adrenals: 1.9 cm left adrenal nodular lesion, which previously measured 1.7 cm. Kidneys and ureters: 1.9 cm left renal cyst. Mild right hydronephrosis and right hydroureter. Stomach and bowel: Interval enlargement of poorly defined 8.6 x 4.8 by 8.6 cm soft tissue mass in the gastroesophageal region and medial stomach, consistent with malignancy. On the prior study, this measured 5.2 x 4.7 x 4.8 cm. Small bowel dilatation without a focal transition zone. Right ostomy. Appendix: Status post appendectomy. Intraperitoneal space: No significant free fluid. Vasculature: Ectasia of the abdominal aorta with atherosclerotic plaque and prominent vascular calcification. Lymph nodes: Marked interval worsening in metastatic lymphadenopathy, including 1.7 x 1.6 x 2.0 cm celiac and 8.4 x 5.9 x 6.3 cm left para-aortic lymph node. On the prior study, the celiac lymph node with subcentimeter in size and the left para-aortic lymph node measured 1.7 cm. Bladder: Normal bladder morphology. Reproductive: Prostate calcification. Bones/joints: Degenerative change, disproportionately involving the hips. Vacuum discs. IMPRESSION: 1. Interval enlargement of 8.6 x 4.8 by 8.6 cm soft tissue mass in the gastroesophageal region and medial stomach, consistent with malignancy. On the prior study, this measured 5.2 x 4.7 x 4.8 cm. 2. Marked interval worsening in metastatic lymphadenopathy, including 1.7 x 1.6 x 2.0 cm celiac and 8.4 x 5.9 x 6.3 cm left para-aortic lymph node. On the prior study, the celiac lymph node with subcentimeter in size and the left para-aortic lymph node measured 1.7 cm. 3. Combined biliary and pancreatic ductal dilatation, which can be better characterized with MRCP or ERCP, as clinically indicated. 4. Additional findings as described above. Electronically signed by: Hayden Lopez On 08/07/2019 16:17:14 PM
--- NOTE | 2019-08-07 16:21 | REPVR ---
PROCEDURE INFORMATION: Exam: CT Neck With Contrast Exam date and time: 08/07/2019 3:47 PM Age: 79 years old Clinical indication: Neck pain; Additional info: Esophogeal CA compare CT [id number] pet from [place] TECHNIQUE: Imaging protocol: Computed tomography images of the neck with intravenous contrast. Radiation optimization: All CT scans at this facility use at least one of these dose optimization techniques: automated exposure control; mA and/or kV adjustment per patient size (includes targeted exams where dose is matched to clinical indication); or iterative reconstruction. Contrast material: ISO 370; Contrast volume: 100 ml; Contrast route: IV COMPARISON: No relevant prior neck CT studies available. The reported prior PET scan from June 2019 was not made available at the time of interpretation and no prior reports have been provided. FINDINGS: No focal subcutaneous soft tissue swelling. Parapharyngeal and posterior nasopharynx soft tissue planes are symmetric. No asymmetric enlargement or inflammation of the pharyngeal tonsils. Vascular structures of the neck enhance normally. Bilateral carotid bulb calcified atherosclerotic plaque is present No abnormally enlarged cervical chain or jugulodigastric lymph nodes. Muscles of mastication and strap muscles of the neck appear normal. Parotid and minor salivary glands are unremarkable. Floor of the mouth and tongue base soft tissues appear normal. Laryngeal structures appear normal. Thyroid gland shows no abnormality. Stable apical pleural scarring, identical to CT from September 27, 2018 Bony structures show no acute fracture or destructive process. Multi-level cervical degenerative disc and articular pillar arthropathy is present. IMPRESSION: No inflammatory process or evidence of cervical lymphadenopathy or metastatic disease Electronically signed by: Sher Mcgee On 08/07/2019 16:21:27 PM
--- NOTE | 2019-08-07 16:28 | REPVR ---
PROCEDURE INFORMATION: Exam: CT Chest With Contrast Exam date and time: 08/07/2019 3:47 PM Age: 79 years old Clinical indication: Chest pain; Follow-up oncological assessment; Primary cancer: Esophageal; No known metastasis; Current or recent treatment: Chemotherapy; Additional info: Esophogeal CA compare CT [id number] pet from [place] TECHNIQUE: Imaging protocol: Computed tomography of the chest with intravenous contrast. Radiation optimization: All CT scans at this facility use at least one of these dose optimization techniques: automated exposure control; mA and/or kV adjustment per patient size (includes targeted exams where dose is matched to clinical indication); or iterative reconstruction. Contrast material: ISO 370; Contrast volume: 100 ml; Contrast route: IV; COMPARISON: CT CHEST/ABD/PELVIS W/ CONTRAST - OUTSIDE PRIOR 09/27/2018 8:42 AM FINDINGS: Tubes, catheters and devices: Termination of med port catheter in the distal superior vena cava. Lungs: Hyperinflation. Asymmetric left lower lobe airspace disease. Poorly defined bilateral subcentimeter nodular densities including an 8 mm nodular lesion in the medial left apex, 7 mm spiculated density in the anterior segment of the right upper lobe, and 7 mm nodular density in the superior segment of the right lower lobe. These findings were also present on the prior study, and have not appreciably changed. Pleural space: Newly developed small left pleural effusion. Heart: Coronary artery calcification. Mediastinum: Mild wall thickening in the nondistended esophagus. Pathologic soft tissue mass in the gastroesophageal junction and medial stomach, which is described in detail on separate abdominal CT report. Aorta: Calcification and ectasia of the thoracic aorta. Lymph nodes: Metastatic lymphadenopathy in the upper abdomen, which is described in detail on separate abdominal CT report. Bones/joints: Mild scoliosis and degenerative change. Soft tissues: Gynecomastia. IMPRESSION: 1. Poorly defined bilateral subcentimeter nodular densities including an 8 mm nodular lesion in the medial left apex, 7 mm spiculated density in the anterior segment of the right upper lobe, and 7 mm nodular density in the superior segment of the right lower lobe. These findings were also present on the prior study, and have not appreciably changed. 2. Asymmetric left lower lobe airspace disease. 3. Newly developed small left pleural effusion. 4. Malignant soft tissue mass in the gastroesophageal junction/medial stomach and lymphadenopathy in the upper abdomen. See separate abdominal CT report for details. 5. Additional findings as described above. Electronically signed by: Hayden Lopez On 08/07/2019 16:27:54 PM
== END ==
LOC: M RAD 13:39
PROVIDERS: ATTEND Internal Medicine Hematology & Oncology
DX: C49.4 Malignant neoplasm of connective and soft tissue of abdomen (principal); I65.23 Occlusion and stenosis of bilateral carotid arteries; R91.8 Other nonspecific abnormal finding of lung field; J90 Pleural effusion, not elsewhere classified
CPT/HCPCS: 70491; 71260; 74178; J1642; Q9963; Q9967

== ENCOUNTER → 2019-10-02 | Outpatient (CLI) | payer MEDICARE ==
[~2019-10-02] MED LIST changes: -ISOVUE-370 76% 100ML VIAL (Q9967) As Ordered ONE; +ISOVUE-370 76% 100ML VIAL As Ordered ONE; +LOTR1CRE12 TOP; +[UNRECOGNIZED DRUG - CODE] TP
--- NOTE | 2019-10-02 13:39 | REP ---
CT CHEST WITH IV CONTRAST: TECHNIQUE: Axial contrast enhanced images from the thoracic inlet to the upper abdomen using 100 mL Isovue-370 intravenous contrast material with multiplanar reformations. COMPARISON: 08/07/2019 In the right lung, there are a few scattered subcentimeter nodular opacities which are stable. A left apical nodular opacity medially is stable. No new nodules are seen. Mild left lower lobe atelectasis/infiltrate just above the left hemidiaphragm has slightly increased since the prior study. There is also slight increase of a small left pleural effusion in the posterior costophrenic sulcus. No other new parenchymal abnormalities are seen. The heart is not enlarged. There is no evidence of mediastinal, hilar or chest wall lymphadenopathy. There appears to be thickening of the distal esophagus. This appears stable. There is a tiny amount of pericardial fluid present. There are atherosclerotic calcifications of the thoracic aorta with no aneurysm or dissection. There are mild degenerative changes of the spine with no definite bone lesion seen. A right central venous catheter is seen with the tip in the superior vena cava. IMPRESSION: Slight increase in left lower lobe atelectasis/infiltrate. There is also a slight increase in small left pleural effusion. Otherwise scattered subcentimeter nodular opacities of the lungs are stable with no new nodule or adenopathy. There is stable thickening of the distal esophagus. Electronically Signed by Jose Kelly MD 10/02/2019 03:21 P
--- NOTE | 2019-10-02 13:52 | REP ---
CT ABDOMEN AND PELVIS WITH ORAL AND IV CONTRAST: TECHNIQUE: Axial contrast enhanced images from the lung bases to the pubic symphysis using 100 mL Isovue-370 intravenous contrast material with multiplanar reformations. COMPARISON: 08/07/2019. At the dome of the liver, there may be a subtle new ill-defined nodule laterally in the right lobe 1.3 cm in diameter. No other definite liver lesion is seen. There is prominence of a biliary system unchanged. Gallbladder is collapsed. Spleen is normal in size with no intrinsic abnormality. Right adrenal gland is unremarkable. Left adrenal gland again demonstrates nodular thickening unchanged. Pancreas demonstrates extensive fatty replacement with no mass. Right kidney is unremarkable. Left kidney demonstrates a central cyst measuring approximately 1.9 cm. There is no hydronephrosis. There is atherosclerotic calcification of the abdominal aorta without aneurysm. There is again a large mass noted at the gastroesophageal junction extending into the stomach. This is mildly decreased in size since the prior study. There is retrogastric adenopathy which has also mildly decreased in size since the prior study. There is bulky left periaortic adenopathy which has mildly decreased in size. This encases the left main renal artery. No new mass is seen. No other new mass is seen. There is an ostomy again seen in the right abdomen. Pelvic structures are unchanged. There are degenerative changes of the hips and spine. IMPRESSION: Mild decrease in size of mass involving the gastroesophageal junction and upper medial stomach. Mild decrease in size of retrogastric and left paraaortic adenopathy. Nodular thickening of the left adrenal gland is stable. There may be a new lesion in the right dome of the liver 1.3 cm in diameter. Further evaluation may be made with dedicated liver MRI with and without contrast. Electronically Signed by Jose Kelly MD 10/02/2019 03:22 P
== END ==
LOC: M RAD 09:22
PROVIDERS: ATTEND Internal Medicine Hematology & Oncology
DX: R91.8 Other nonspecific abnormal finding of lung field (principal); J90 Pleural effusion, not elsewhere classified; K22.8 Other specified diseases of esophagus; K76.89 Other specified diseases of liver; I70.0 Atherosclerosis of aorta; Z93.3 Colostomy status; R59.0 Localized enlarged lymph nodes; C63.7 Malignant neoplasm of other specified male genital organs; K92.9 Disease of digestive system, unspecified
CPT/HCPCS: 71260; 74177; J1642; Q9963; Q9967

== ENCOUNTER → 2019-10-09 | Outpatient (CLI) | payer MEDICARE ==
[~2019-10-09] MED LIST changes: +E-Z-GAS II EFFERVESCENT PACKET (SODIUM BICARB./CITRIC ACID/SIMETHICONE) As Ordered ONE; +E-Z-HD 98% w/w 340GM SUSP BTL As Ordered ONE; +E-Z-PAQUE 96% w/w SUSP 176GM BTL As Ordered ONE; -GASTROGRAFIN SOLUTION 30ML (Q9963) As Ordered ONE; -ISOVUE-370 76% 100ML VIAL As Ordered ONE; +PROHANCE 279.3MG/ML 5ML VIAL As Ordered ONE
--- NOTE | 2019-10-09 12:15 | REP ---
REASON FOR EXAM: Followup esophageal carcinoma. There are no prior abdominal MRI examinations for comparison. Previous CT scan of the abdomen and pelvis 10/02/2019 was reviewed. Contrast for today's exam 5 mL of ProHance. There is a large mass in the distal esophagus which extends into the gastric cardia region. The mass measures at least 7 to 8 cm and is compressing/invading the lesser curvature of the stomach. The mass is causing significant compressive effects on the pancreas and there is encasement of the left renal artery and renal vein secondary to extensive retroperitoneal adenopathy and para-aortic adenopathy on the left. The liver is seen with a single focus of hypersignal on the diffuse-weighted images. In addition, there are multiple mixed signal foci which show enhancement involving multiple lumbar vertebral bodies. These too, are suspicious. IMPRESSION: 1. There is a large mass seen in the distal esophagus and at the gastric cardia as described above with evidence of both compression on the stomach wall at the lesser curvature and likely stomach wall invasion. There are related findings as described above with rather extensive adenopathy in the retroperitoneum. 2. Likely at least one focus of hepatic metastasis. 3. Likely multiple vertebral body metastatic foci as described above. Electronically Signed by Channing Ruggiero DO 10/09/2019 12:21 P
== END ==
LOC: M RAD 09:24
PROVIDERS: ATTEND Internal Medicine Hematology & Oncology
DX: C15.9 Malignant neoplasm of esophagus, unspecified (principal)
CPT/HCPCS: 74183; A9576; J1642

== ENCOUNTER 2019-10-30 16:16 | Observation (INO) | payer MEDICARE ==
[2019-10-30] VITALS (8 sets, daily range): BP systolic 114–133; BP diastolic 65–77
[~2019-10-30] VITALS: Ht 175.3 cm; Wt 50.2 kg
[~2019-10-30 16:16] MED LIST changes: -E-Z-GAS II EFFERVESCENT PACKET (SODIUM BICARB./CITRIC ACID/SIMETHICONE) As Ordered ONE; -E-Z-HD 98% w/w 340GM SUSP BTL As Ordered ONE; -E-Z-PAQUE 96% w/w SUSP 176GM BTL As Ordered ONE; -PROHANCE 279.3MG/ML 5ML VIAL As Ordered ONE
[2019-10-30] MEDS ORDERED: ACETAMINOPHEN TAB 650MG DOSE (2X325MG) PO PRN (17:00)
[2019-10-30 18:04] LABS: INR 1.08; PROTHROMBIN TIME 13.7 SECONDS (11.8-14.0)
--- NOTE | 2019-10-30 18:53 | HPEPDOC ---
General Date of Admission October 30, 2019 at 16:56 Date of Service: October 30, 2019 Chief Complaint The patient is a 79-year-old male admitted with a reason for visit of Symptomatic Anemia. Source: Patient Exam Limitations: No limitations Timing/Duration: 24 hours Severity: Mild History of Present Illness Patient 79 years old male with past medical history of ileostomy, history of rectal cancer, esophageal adenocarcinoma stage IV who was directly admitted to the hospital from [facility], [place] with acute anemia with hemoglobin of 5.6. Patient received palliative chemotherapy. Patient denies fever, chills, nausea, vomiting, chest pain, palpitations, dysuria. 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 1 SON(S) , 1 DAUGHTER(S) - HEALTHY. DENIES FAMILY HISTORY OF UROLOGICAL DX. Social History * Smoker: former Smoker Alcohol: Denies Drugs: denies A-FIB/CHADSVASC A-FIB History Current/History of A-Fib/PAF?: No Current PO Anticoag Therapy: No Review of Systems Constitutional: Reports: Malaise, Weakness; Denies: Chills, Fever Eyes: Denies: Pain, Vision change ENT: Denies: Head Aches, Ear Pain Skin: Denies: Rash, Lesions Pulmonary: Denies: Dyspnea, Cough Cardiovascular: Denies: Chest Pain Gastrointestinal: Denies: Nausea Genitourinary: Denies: Dysuria Hematologic: Denies: Bruising Endocrine: Denies: Polydipsia Musculoskeletal: Denies: Neck Pain Neurological: Denies: Weakness Psych: Reports: Mood Normal Physical Examination General Exam: Negative: Alert, Cooperative Eye Exam: Positive: PERRLA ENT Exam: Positive: Atraumatic Neck Exam: Positive: Supple; Negative: JVD Chest Exam: Positive: Clear to auscultation Heart Exam: Positive: Rate Normal; Negative: Tachycardic Telemetry: Positive: No significant arrhythmia Abdomen Exam: Positive: Normal bowel sounds Extremity Exam: Negative: Clubbing, Cyanosis Skin Exam: Positive: Nl turgor and temperature Neuro Exam: Positive: Normal Gait, Cranial Nerves 3-12 NL Psych Exam: Positive: Mental status NL Vital Signs Vital Signs Date Time Temp Pulse Resp B/P (MAP) Pulse Ox O2 Delivery O2 Flow Rate FiO2 10/30/19 17:37 97.5 89 16 128/68 (88) 98 Room Air Laboratory Data Labs 24H Laboratory Tests 2 10/30/19 17:33: Prothrombin Time 13.7, Prothromb Time International Ratio 1.08 Assessment/Plan Patient 79 years old male with past medical history of ileostomy, history of rectal cancer, esophageal adenocarcinoma stage IV who was directly admitted to the hospital from [facility], [place] with acute anemia with hemoglobin of 5.6. Patient received palliative chemotherapy. Patient denies fever, chills, nausea, vomiting, chest pain, palpitations, dysuria. Problems (1) Acute anemia Status: Acute Problem Text: Most likely secondary to chemotherapy and malignancy H&H every 6 hours 2 units of blood transfusion (2) Adenocarcinoma of lower esophagus Onset Date: Unknown Status: Acute Problem Text: Follow-up with oncologist to continue palliative care Plan / VTE VTE Prophylaxis Ordered?: Yes DWAYNE RAMIREZ DO October 30, 2019 18:53
[2019-10-30] MEDS: HEPARIN SOD (PORCINE) 5000UNITS/ML VIAL (J1644 PER 1000UNITS) SC SCH (20:40)
[2019-10-31 01:04] VITALS: BP 125/67
[2019-10-31 05:57] LABS: HEMATOCRIT 23.7 % (42.0-52.0); MEAN CORPUSCULAR HEMOGLOBIN 28.8 pg (27.0-33.0); MEAN CORPUSCULAR HGB CONC 32.9 g/dl (32.0-36.5); MEAN CORPUSCULAR VOLUME 87.5 fl (80.0-96.0); PLATELET COUNT, AUTOMATED 198 10^3/uL (150-450); RED BLOOD COUNT 2.71 10^6/uL (4.30-6.10); WHITE BLOOD COUNT 8.8 10^3/uL (4.0-10.0)
[2019-10-31 06:00] VITALS: BP 117/64
[2019-10-31 06:02] LABS: BLOOD UREA NITROGEN 35 MG/DL (7-18); CARBON DIOXIDE LEVEL 32 MEQ/L (21-32); CHLORIDE LEVEL 98 MEQ/L (98-107); GLOMERULAR FILTRATION RATE > 60.0 (>42); GLUCOSE, FASTING 90 MG/DL (70-100); POTASSIUM SERUM 3.9 MEQ/L (3.5-5.1); SODIUM LEVEL 134 MEQ/L (136-145)
[2019-10-31 06:05] LABS: HEMOGLOBIN 7.8 g/dl (13.5-17.5)
[2019-10-31] MEDS: traMADol 50 MG TAB PO PRN (08:18)
[2019-10-31] MEDS: HEPARIN SOD (PORCINE) 5000UNITS/ML VIAL (J1644 PER 1000UNITS) SC SCH ×2 (08:18→21:01)
[2019-10-31] MEDS: amLODIPine 5 MG TAB PO SCH (09:00)
[2019-10-31] MEDS: DYAZIDE 37.5/25 CAP (TRIAM/HCTZ) PO SCH (09:00)
--- NOTE | 2019-10-31 12:01 | IPNPDOC ---
Text Note Date of Service The patient was seen on 10/31/19. NOTE Subjective: Patient stated that he feels much better. Patient denied fever, chills, chest pain, palpitations, diarrhea or dysuria Objective: VITAL SIGNS: Please see below. GENERAL: awake, alert, NAD HEENT: NCAT, anicteric sclera, BRYCE NECK: supple, no JVD CARDIOVASCULAR EXAMINATION: NS1S2, regular rate/rhythm RESPIRATORY EXAMINATION: CTA b/l, no wheezes/rales/rhonchi ABDOMINAL EXAMINATION: positive bowel sounds x 4, NT EXTREMITIES: no cyanosis, clubbing, edema SKIN: warm, no rashes. NEUROLOGICAL EXAMINATION: AAO x 3, no motor/sensory deficits PSYCHIATRIC EXAMINATION: calm, normal affect Assessment/Plan Patient 79 years old male with past medical history of ileostomy, history of rectal cancer, esophageal adenocarcinoma stage IV who was directly admitted to the hospital from [facility] with acute anemia with hemoglobin of 5.6. Patient received palliative chemotherapy. Patient denies fever, chills, nausea, vomiting, chest pain, palpitations, dysuria. Problems Acute anemia Most likely secondary to chemotherapy and malignancy H&H every 6 hours 2 units of blood transfusion was done on 10/30/19 On 10/31/19 hemoglobin 7.8 Adenocarcinoma of lower esophagus Follow-up with oncologist to continue palliative care Deconditioning Secondary to advanced malignancy and cachexia Continue PT/OT Cachexia Muscle wasting BMI 16.3 Customer Agent evaluation VS,Fishbone, I+O VS, Fishbone, I+O Laboratory Tests 10/31/19 04:47 Vital Signs Date Time Temp Pulse Resp B/P (MAP) Pulse Ox O2 Delivery O2 Flow Rate FiO2 10/31/19 08:48 18 10/31/19 06:00 98.1 96 117/64 (81) 96 Room Air I&O- Last 24 Hours up to 6 AM 10/31/19 06:00 Intake Total 1520 ml Output Total 425 ml Balance 1095 ml DWAYNE RAMIREZ DO October 31, 2019 12:01
[2019-10-31 14:00] VITALS: BP 146/77
[2019-10-31] MEDS: ACETAMINOPH W/CODEINE #3 TAB UD PO PRN (16:16)
[2019-10-31] MEDS: LIDOCAINE 5% (LIDODERM) PATCH TD SCH (17:46)
[2019-10-31 22:00] VITALS: BP 110/71
[2019-11-01] MEDS: ACETAMINOPH W/CODEINE #3 TAB UD PO PRN ×2 (00:04→08:48)
[2019-11-01] MEDS: traMADol 50 MG TAB PO PRN (00:04)
[2019-11-01 06:00] VITALS: BP 128/72
[2019-11-01] MEDS ORDERED: **NOTE PATIENT COMMENT** MISC XX SCH (06:00)
[2019-11-01 08:47] VITALS: BP 141/78
[2019-11-01] MEDS: amLODIPine 5 MG TAB PO SCH (08:47)
[2019-11-01] MEDS: DYAZIDE 37.5/25 CAP (TRIAM/HCTZ) PO SCH (08:47)
[2019-11-01] MEDS: HEPARIN SOD (PORCINE) 5000UNITS/ML VIAL (J1644 PER 1000UNITS) SC SCH (08:48)
[2019-11-01 10:19] LABS: BASO % 0.3 % (0.0-1.0); EOS # 0.1 10^3/uL (0.0-0.5); EOS % 1.6 % (0.0-3.0); HEMATOCRIT 23.6 % (42.0-52.0); HEMOGLOBIN 7.9 g/dl (13.5-17.5); LYMPH # 0.7 10^3/uL (1.5-5.0); LYMPH % 8.4 % (24.0-44.0); MEAN CORPUSCULAR HEMOGLOBIN 29.2 pg (27.0-33.0); MEAN CORPUSCULAR HGB CONC 33.5 g/dl (32.0-36.5); MEAN CORPUSCULAR VOLUME 87.1 fl (80.0-96.0); MONO # 0.7 10^3/uL (0.0-0.8); MONO % 8.5 % (0.0-5.0); NEUTROPHILS % 80.5 % (36.0-66.0); PLATELET COUNT, AUTOMATED 200 10^3/uL (150-450); RED BLOOD COUNT 2.71 10^6/uL (4.30-6.10); WHITE BLOOD COUNT 8.7 10^3/uL (4.0-10.0)
[2019-11-01 10:43] LABS: BLOOD UREA NITROGEN 24 MG/DL (7-18); CALCIUM LEVEL 8.7 MG/DL (8.8-10.2); CARBON DIOXIDE LEVEL 32 MEQ/L (21-32); CHLORIDE LEVEL 98 MEQ/L (98-107); CREATININE FOR GFR 0.97 MG/DL (0.70-1.30); GLOMERULAR FILTRATION RATE > 60.0 (>42); GLUCOSE, FASTING 152 MG/DL (70-100); POTASSIUM SERUM 3.4 MEQ/L (3.5-5.1); SODIUM LEVEL 138 MEQ/L (136-145)
[2019-11-01] MEDS: LIDOCAINE 5% (LIDODERM) PATCH TD SCH (11:32)
--- NOTE | 2019-11-01 19:07 | DS.PDOC ---
Discharge Summary General Date of Admission October 30, 2019 at 16:56 Date of Discharge 11/01/19 Discharge Summary PROCEDURES PERFORMED DURING STAY: [None]. ADMITTING DIAGNOSES: Acute anemia Adenocarcinoma of lower esophagus Deconditioning Cachexia DISCHARGE DIAGNOSES: Acute anemia Adenocarcinoma of lower esophagus Deconditioning Cachexia COMPLICATIONS/CHIEF COMPLAINT: Symptomatic Anemia. HISTORY OF PRESENT ILLNESS: Patient 79 years old male with past medical history of ileostomy, history of rectal cancer, esophageal adenocarcinoma stage IV who was directly admitted to the hospital from [facility] with acute anemia with hemoglobin of 5.6. Patient received palliative chemotherapy. Patient denies fever, chills, nausea, vomiting, chest pain, palpitations, dysuria. 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 ALLERGIES: Please see below. PHYSICAL EXAMINATION ON DISCHARGE: VITAL SIGNS: Please see below. GENERAL: awake, alert, NAD HEENT: NCAT, anicteric sclera, BRYCE NECK: supple, no JVD CARDIOVASCULAR EXAMINATION: NS1S2, regular rate/rhythm RESPIRATORY EXAMINATION: CTA b/l, no wheezes/rales/rhonchi ABDOMINAL EXAMINATION: positive bowel sounds x 4, NT EXTREMITIES: no cyanosis, clubbing, edema SKIN: warm, no rashes. NEUROLOGICAL EXAMINATION: AAO x 3, no motor/sensory deficits PSYCHIATRIC EXAMINATION: calm, normal affect LABORATORY DATA: Please see below. PROGNOSIS: Guarded ACTIVITY: [As tolerated]. DIET: Regular DISPOSITION: 01 Home, Self-Care. DISCHARGE INSTRUCTIONS: Repeat CBC in 2-3 days ITEMS TO FOLLOWUP ON ON OUTPATIENT: Follow-up with oncologist DISCHARGE CONDITION: [Stable]. TIME SPENT ON DISCHARGE: Greater than 15 minutes. Vital Signs/I&Os Vital Signs Date Time Temp Pulse Resp B/P (MAP) Pulse Ox O2 Delivery O2 Flow Rate FiO2 11/01/19 09:18 16 11/01/19 08:47 90 141/78 11/01/19 06:00 97.9 96 Room Air I&O- Last 24 Hours up to 6 AM 11/01/19 05:59 Intake Total 1590 ml Output Total 1325 ml Balance 265 ml Laboratory Data Labs 24H Laboratory Tests 2 11/01/19 09:41: Immature Granulocyte % (Auto) 0.7, Neutrophils (%) (Auto) 80.5H, Lymphocytes (%) (Auto) 8.4L, Monocytes (%) (Auto) 8.5H, Eosinophils (%) (Auto) 1.6, Basophils (%) (Auto) 0.3, Neutrophils # (Auto) 7.0, Lymphocytes # (Auto) 0.7L, Monocytes # (Auto) 0.7, Eosinophils # (Auto) 0.1, Basophils # (Auto) 0.0, Nucleated Red Blood Cells % (auto) 0.0, Anion Gap 8, Glomerular Filtration Rate > 60.0, Calcium Level 8.7L CBC/BMP Laboratory Tests 11/01/19 09:41 Discharge Medications Scheduled Amlodipine Besylate (Amlodipine Besylate) 5 Mg Tab, 5 MG PO DAILY, (Reported) Tramadol HCl (Tramadol HCl) 50 Mg Tab, 50 MG PO BID, (Reported) Triamterene/Hydrochlorothiazid (Triamterene-Hctz 37.5-25 mg Cp) 1 Cap Cap, 1 CAP PO DAILY, (Reported) Scheduled PRN Acetaminophen with Codeine (Acetaminophen-Cod #3 Tablet) 1 Tab Tab, 1 TAB PO Q6H PRN for PAIN, (Reported) Allergies Coded Allergies: No Known Allergies (Unverified , 02/27/18) DWAYNE RAMIREZ DO November 01, 2019 19:07
[2019-11-07] MEDS ORDERED: PANT40TA3 PO (13:13)
[2019-11-07] MEDS ORDERED: SUCR1TAB56 PO (13:13)
== END 2019-11-01 12:15 | disposition home or self-care (01) ==
LOC: ENRESERV 16:50 → M MS5PR 16:56 → EDSTATUS 17:00
PROVIDERS: ADMIT Internal Medicine; ATTEND Internal Medicine
DX: D64.9 Anemia, unspecified (principal); C78.89 Secondary malignant neoplasm of other digestive organs; R64 Cachexia; Z79.899 Other long term (current) drug therapy; Z79.891 Long term (current) use of opiate analgesic; Z85.048 Personal history of other malignant neoplasm of rectum, rectosigmoid junction, and anus; Z85.47 Personal history of malignant neoplasm of testis; Z90.79 Acquired absence of other genital organ(s); Z93.2 Ileostomy status; Z87.891 Personal history of nicotine dependence
CPT/HCPCS: 36415; 36430; 36591; 80048; 85025; 85027; 85610; 86850; 86900; 86901; 86920; 96372; 97116; 97162; 97165; 97530; G0378; G0463; J1644; P9016

== ENCOUNTER 2019-11-07 14:57 | Inpatient (IN) | payer MEDICARE ==
[~2019-11-07] VITALS: Ht 172.7 cm; Wt 47.7 kg
[2019-11-07] VITALS (10 sets, daily range): BP systolic 117–154; BP diastolic 67–83
[~2019-11-07 14:57] MED LIST changes: +SUCR1TAB56 PO
[2019-11-07] MEDS ORDERED: ACETAMINOPHEN 500 MG TAB PO ONE (15:15)
[2019-11-07] MEDS ORDERED: diphenhydrAMINE 12.5MG/5ML ELIXIR UDC PO ONE (15:30)
--- NOTE | 2019-11-07 19:30 | HPEPDOC ---
General Date of Admission Nov 07, 2019 at 17:52 Date of Service: Nov 07, 2019 Chief Complaint The patient is a 79-year-old male admitted with a reason for visit of Adenocarcinoma Of Lower Esophagus. Source: Patient, RN/MD History of Present Illness 79 year old male with multiple cancers in his lifetime currently being treated for metastatic Gastroesophageal junction adenocarcinoma as been having recurrent GIBs with persistent anemia requiring frequent blood transfusions was sent in from Oncology clinic after 2 units of PRBC transfusion for GI evaluation and EGD. Patient was admitted to the hospital for acute anemia from 10/29 to 10/31 and received 2 units of blood transfusion. He reported having broderick over the week end 2 days ago. Denied any abdominal pain, nausea or vomiting. He complained of always feeling cold, fatigued and weak. Came for follow up with oncology today and was found to have again drop in hh from 7.9 to 6.3. He was given 2 units of PRBC at the infusion unit and was admitted for Evaluation of GIB. Suspect bleeding from his lower esophageal tumor. Case discussed with Dr. Chavis . Planned for EGD tomorrow. Patient admitted for acute on chronic anemia, acute blood loss anemia, symptomatic and GIB. Home Medications Scheduled Pantoprazole Sodium (Pantoprazole Sodium) 40 Mg Tablet.dr, 40 MG PO DAILY, (Reported) Sucralfate (Sucralfate) 1 Gm Tablet, 1 GM PO BID, (Reported) Tramadol HCl (Tramadol HCl) 50 Mg Tab, 50 MG PO BID, (Reported) Scheduled PRN Acetaminophen with Codeine (Acetaminophen-Cod #3 Tablet) 1 Tab Tab, 1 TAB PO Q6H PRN for PAIN, (Reported) Allergies Coded Allergies: No Known Allergies (Unverified , 02/27/18) Past Medical History Medical History Active anemia secondary to GI bleed with symptomatic anemia Relapsed, metastatic poorly differentiated GE junction adenocarcinoma - EGD Bx 09/01/2018 s/p radiation and chemo, currently on Ketruda. 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 Peroneal hernia. A longstanding systolic murmur, LVEF 60% with mild focal hypertrophy of the basal anterior ventricular septum on echo from May 2018 with grade 1 left ventricular diastolic dysfunction and mild aortic valve sclerosis of three - cuspid aortic valve. No aortic regurgitation. h/o Hyperlipidemia. Bladder diverticulum posterior wall. Multilevel disk disease, cervical spine with disk extrusions and broad based annular bulges and foramen narrowing and central canal stenosis. Surgical History Total Colectomy and end ILEOSTOMY in 1982 GROWTH REMOVED FROM EYE LEFT ORCHIECTOMY RADICAL LEFT 03/01/2018 Exploratory Laparotomy, lysis of adhesion, release of SBO, repairs of enterotomy (05/16/2018) Family History Significant Family History: Cancer (maternal grandfather with colon cancer) Social History * Smoker: Denies Alcohol: Denies Drugs: denies A-FIB/CHADSVASC A-FIB History Current/History of A-Fib/PAF?: No Review of Systems Constitutional: Reports: Fatigue, Weight Loss; Denies: Chills, Fever, Night Sweats Eyes: Denies: Pain, Vision change ENT: Denies: Head Aches, Ear Pain, Dysphagia Skin: Denies: Rash, Lesions, Breakdown Pulmonary: Denies: Dyspnea, Cough Cardiovascular: Denies: Chest Pain, Palpitations, Orthopnea, Paroxysmal Noc. Dy spnea, Lt Headedness Gastrointestinal: Reports: Melena; Denies: Nausea, Vomiting, Abdominal Pain Genitourinary: Denies: Dysuria, Frequency, Incontinence, Retention Hematologic: Denies: Bruising, Bleeding Excessively Musculoskeletal: Denies: Neck Pain, Back Pain, Joint Pain, Muscle Pain Physical Examination General Exam: Positive: Alert, Cooperative, No Acute Distress Eye Exam: Positive: PERRLA, Conjunctiva & lids normal, EOMI; Negative: Sclera icteric ENT Exam: Positive: Atraumatic, Mucous membr. moist/pink, Pharynx Normal, Other ENT (bitemporal wasting) Neck Exam: Positive: Supple; Negative: JVD, thyromegaly Chest Exam: Positive: Clear to auscultation, Normal air movement Heart Exam: Positive: Rate Normal, Regular Rhythm, Normal S1, Normal S2, Murmurs (systolic); Negative: Rubs Abdomen Exam: Positive: Normal bowel sounds, Soft, Other (ileostomy present, multiple abdominal scars.); Negative: Tenderness, Hepatospenomegaly Extremity Exam: Positive: Cyanosis (in the toes), Other (cold with some acral mottling); Negative: Clubbing, Edema Skin Exam: Positive: Nl turgor and temperature; Negative: Breakdown, Lesion Vital Signs Vital Signs Date Time Temp Pulse Resp B/P (MAP) Pulse Ox O2 Delivery O2 Flow Rate FiO2 11/07/19 17:15 99.2 90 18 141/77 99 Room Air Assessment/Plan 79 year old male with multiple cancers in his lifetime currently being treated for metastatic Gastroesophageal junction adenocarcinoma as been having recurrent GIBs with persistent anemia requiring frequent blood transfusions was sent in from Oncology clinic after 2 units of PRBC transfusion for GI evaluation and EGD. Patient was admitted to the hospital for acute anemia from 10/29 to 10/31 and received 2 units of blood transfusion. He reported having broderick over the week end 2 days ago. Denied any abdominal pain, nausea or vomiting. He complained of always feeling cold, fatigued and weak. Came for follow up with oncology today and was found to have again drop in hh from 7.9 to 6.3. He was given 2 units of PRBC at the infusion unit and was admitted for Evaluation of GIB. Suspect bleeding from his lower esophageal tumor. Case discussed with Dr. Chavis . Planned for EGD tomorrow. Patient admitted for acute on chronic anemia, acute blood loss anemia, symptomatic and GIB. Acute on chronic anemia/ acute blood loss anemia suspected from bleeding from the GE junction cancer received 2 units prbc will check CBC. Monitor HH GIB planned for EGD tomorrow Potential consideration for some type of of embolization or coiling procedure by interventional radiology NPO midnight Metastatic GE junction adenocarcinoma on palliative therapy. follow up oncology. Severe Protein Calorie malnutrition BMI 16, albumin 2.4, bitemporal wasting, wasting of small muscles of hand and feet. Due to progressive cancer cachexia. Plan / VTE VTE Prophylaxis Ordered?: Yes GREGOR GILMORE MD Nov 07, 2019 18:36
[2019-11-07 19:31] LABS: BASO % 0.1 % (0.0-1.0); EOS % 0.2 % (0.0-3.0); HEMATOCRIT 27.8 % (42.0-52.0); HEMOGLOBIN 9.1 g/dl (13.5-17.5); LYMPH # 0.8 10^3/uL (1.5-5.0); LYMPH % 6.2 % (24.0-44.0); MEAN CORPUSCULAR HEMOGLOBIN 28.1 pg (27.0-33.0); MEAN CORPUSCULAR HGB CONC 32.7 g/dl (32.0-36.5); MEAN CORPUSCULAR VOLUME 85.8 fl (80.0-96.0); MONO # 0.6 10^3/uL (0.0-0.8); MONO % 4.3 % (0.0-5.0); NEUTROPHILS # 11.8 10^3/uL (1.5-8.5); NEUTROPHILS % 88.6 % (36.0-66.0); PLATELET COUNT, AUTOMATED 225 10^3/uL (150-450); RED BLOOD COUNT 3.24 10^6/uL (4.30-6.10); WHITE BLOOD COUNT 13.3 10^3/uL (4.0-10.0)
[2019-11-07] MEDS: SUCRALFATE 1 GM TAB PO SCH (20:42)
[2019-11-07] MEDS: traMADol 50 MG TAB PO SCH (20:42)
[2019-11-07] MEDS: ACETAMINOPH W/CODEINE #3 TAB UD PO PRN (21:57)
[2019-11-08] VITALS (9 sets, daily range): BP systolic 135–148; BP diastolic 78–84
[2019-11-08 00:06] LABS: HEMATOCRIT 24.7 % (42.0-52.0); HEMOGLOBIN 8.4 g/dl (13.5-17.5)
[2019-11-08] MEDS: LIDOCAINE 5% (LIDODERM) PATCH TD SCH (02:59)
[2019-11-08] MEDS ORDERED: LIDOCAINE 5% (LIDODERM) PATCH TD SCH (03:00)
[2019-11-08 06:24] LABS: BASO % 0.2 % (0.0-1.0); EOS % 0.3 % (0.0-3.0); HEMATOCRIT 25.7 % (42.0-52.0); HEMOGLOBIN 8.6 g/dl (13.5-17.5); LYMPH # 0.8 10^3/uL (1.5-5.0); LYMPH % 6.5 % (24.0-44.0); MEAN CORPUSCULAR HEMOGLOBIN 28.7 pg (27.0-33.0); MEAN CORPUSCULAR HGB CONC 33.5 g/dl (32.0-36.5); MEAN CORPUSCULAR VOLUME 85.7 fl (80.0-96.0); MONO # 0.7 10^3/uL (0.0-0.8); MONO % 5.4 % (0.0-5.0); NEUTROPHILS % 86.8 % (36.0-66.0); PLATELET COUNT, AUTOMATED 213 10^3/uL (150-450); WHITE BLOOD COUNT 12.7 10^3/uL (4.0-10.0)
[2019-11-08 06:54] LABS: ALBUMIN 2.3 GM/DL (3.2-5.2); ALT/SGPT 20 U/L (12-78); BILIRUBIN,TOTAL 1.1 MG/DL (0.2-1.0); BLOOD UREA NITROGEN 34 MG/DL (7-18); CALCIUM LEVEL 8.9 MG/DL (8.8-10.2); CARBON DIOXIDE LEVEL 29 MEQ/L (21-32); CHLORIDE LEVEL 98 MEQ/L (98-107); CREATININE FOR GFR 0.98 MG/DL (0.70-1.30); GLOMERULAR FILTRATION RATE > 60.0 (>42); GLUCOSE, FASTING 66 MG/DL (70-100); SODIUM LEVEL 137 MEQ/L (136-145); TOTAL PROTEIN 5.8 GM/DL (6.4-8.2)
[2019-11-08] MEDS: SODIUM CHLORIDE 0.9% INJ 10 ML SYR IV SCH (09:00)
[2019-11-08] MEDS: SUCRALFATE 1 GM TAB PO SCH ×2 (10:03→20:33)
[2019-11-08] MEDS: PANTOPRAZOLE 40MG TAB (PROTONIX) PO SCH (10:03)
[2019-11-08] MEDS: traMADol 50 MG TAB PO SCH ×2 (10:03→20:34)
[2019-11-08 12:13] LABS: HEMATOCRIT 25.6 % (42.0-52.0); HEMOGLOBIN 8.6 g/dl (13.5-17.5)
[2019-11-08] MEDS ORDERED: propofoL 200 MG/20 ML VIAL As Ordered ONE (14:44)
[2019-11-08] MEDS ORDERED: LIDOCAINE 2% 100MG/5ML SDV (FOR ANES.) As Ordered ONE (14:44)
[2019-11-08] MEDS: **NOTE PATIENT COMMENT** MISC XX SCH (15:00)
--- NOTE | 2019-11-08 17:14 | IPNPDOC ---
Date Seen The patient was seen on 11/08/19. Progress Note SUBJECTIVE: EGD done today showing large partially obstructing malignant tumor in the lower one third esophagus and cardia/fundus of the stomach. There was no active bleeding identified; however, there was a mass that was ulcerated and hemorrhagic. Stomach was full of hematin indicating recent bleeding. GI gave no effective treatment for the intermittent bleeding but suggested PPI indefinitely . Discussed the case with patient's healthcare proxy and daughter Meghan who would like to discuss with heme/onc. H&H has remained stable at 8.6/25.7, no additional units of blood given after initial 2. The patient denies chest pain, shortness of breath, nausea, vomiting, abdominal pain. OBJECTIVE: VITAL SIGNS: Please see below PHYSICAL EXAMINATION: CONSTITUTIONAL: Thin appearing male, No acute distress, resting comfortably, AAO x 3 EYES: PERRLA, EOM intact HENT, MOUTH: Normocephalic, atraumatic, moist mucous membranes, temporal wasting NECK: SUPPLE, no JVD, no lymphadenopathy, no carotid bruit CV: Regular rate and rhythm, S1S2 normal, no murmurs/rubs/gallops RESPIRATORY: Clear to auscultation bilaterally, no rales/rhonchi/wheezes GI: BS positive in 4 quadrants, soft, nontender, nondistended, no rebound or guarding, no organomegaly, ileostomy present, multiple abdominal scars : Deferred MUSCULOSKELETAL: Normal ROM. No cyanosis, clubbing, swelling, joint deformity, extremity edema INTEGUMENTARY: Intact, no rashes, no lesions, no erythema NEUROLOGIC: Cranial Nerves II-XII are intact, no focal deficits PSYCHIATRIC: Mood and affect are normal CURRENT MEDICATIONS: Please see below LABORATORY DATA: Please see below IMAGING: EGD: Large partially obstructive malignant tumor in the lower one third of the esophagus and cardia/fundus of the stomach. No active bleeding. Mass appears ulcerated, hemorrhagic. Stomach full of hematin with no active bleeding currently but appears to have recently bled. Recommend PPI by mouth indefinitely. ASSESSMENT: 79-year-old male admitted for GI bleed likely secondary to large obstructing malignant tumor of esophagus, known metastatic adenocarcinoma of the gastroesophageal junction. PLAN: 1. Acute GI bleed likely 2/2 to malignant tumor of esophagus, ulcerated. S/p 2 U of PRBC, H/H has been stable at 8.6/25. At this time GI states no effective treatment for intermittent bleeding, transfuse PRN, PPI, sucralfate BID. 2. Metastatic GE junction adenocarcinoma on palliative therapy. EGD above from today. Heme/Onc is requested to call family to discuss findings of EGD with family and to discuss results and overall poor prognosis. Heme/onc (Dr. Noe) consulted. 3. Severe Protein Calorie malnutrition 2/2 to progressive cancer above. BMI 16, albumin 2.4, bitemporal wasting, wasting of small muscles of hand and feet. Due to progressive cancer cachexia. Nutrition consulted. 4. GI px. PPI 5. DVT px. TEDs, SCDs. AC contraindicated/ DISPOSITION: H/H stable and if remains so hopeful for discharge tomorrow. Heme/onc to discuss findings on EGD with patient and family again today. VS, I&O, 24H, Fishbone Vital Signs/I&O Vital Signs Date Time Temp Pulse Resp B/P (MAP) Pulse Ox O2 Delivery O2 Flow Rate FiO2 11/08/19 17:00 97.3 96 17 148/82 (104) 99 Room Air I&O- Last 24 Hours up to 6 AM 11/08/19 06:00 Intake Total 1200 ml Output Total 500 ml Balance 700 ml Laboratory Data 24H LABS Laboratory Tests 2 11/07/19 19:19: Immature Granulocyte % (Auto) 0.6, Neutrophils (%) (Auto) 88.6H, Lymphocytes (%) (Auto) 6.2L, Monocytes (%) (Auto) 4.3, Eosinophils (%) (Auto) 0.2, Basophils (%) (Auto) 0.1, Neutrophils # (Auto) 11.8H, Lymphocytes # (Auto) 0.8L, Monocytes # (Auto) 0.6, Eosinophils # (Auto) 0.0, Basophils # (Auto) 0.0, Nucleated Red Blood Cells % (auto) 0.0 11/08/19 05:26: Immature Granulocyte % (Auto) 0.8, Neutrophils (%) (Auto) 86.8H, Lymphocytes (%) (Auto) 6.5L, Monocytes (%) (Auto) 5.4H, Eosinophils (%) (Auto) 0.3, Basophils (%) (Auto) 0.2, Neutrophils # (Auto) 11.0H, Lymphocytes # (Auto) 0.8L, Monocytes # (Auto) 0.7, Eosinophils # (Auto) 0.0, Basophils # (Auto) 0.0, Nucleated Red Blood Cells % (auto) 0.0, Anion Gap 10, Glomerular Filtration Rate > 60.0, Calcium Level 8.9, Total Bilirubin 1.1#H, Aspartate Amino Transf (AST/SGOT) 31, Alanine Aminotransferase (ALT/SGPT) 20, Alkaline Phosphatase 161H, Total Protein 5.8L, Albumin 2.3L, Albumin/Globulin Ratio 0.7 11/08/19 09:40: Coronavirus (COVID-19)(PCR) NEGATIVE CBC/BMP Laboratory Tests 11/07/19 19:19 11/07/19 23:53 11/08/19 05:26 11/08/19 11:43 Current Medications Current Medications Medications (Trade) Dose Ordered Sig/Marisela Route PRN Reason Start Time Stop Time Status Last Admin Dose Admin Acetaminophen/ Codeine Phosphate (Tylenol/Codeine #3 Tablet) 1 ea Q6HP PRN PO PAIN 11/07/19 20:15 11/07/19 21:57 Heparin Sodium (Heparin (Flush)) 500 units ASDIRECTED PRN IV SEE LABEL COMMENTS 11/07/19 15:30 Heparin Sodium (Heparin (Flush)) 500 units DAILY IV 11/08/19 09:00 11/08/19 10:04 Lidocaine (Lidoderm Patch) 1 patch DAILY TD 11/08/19 03:00 11/08/19 02:51 DC Lidocaine (Lidoderm Patch) 1 patch DAILY TD 11/08/19 03:00 11/08/19 02:59 Non-Formulary Medication ( See Comment Field Below ) REMOVE LIDODERM PATCH DAILY@21 XX 11/08/19 15:00 11/08/19 15:00 Pantoprazole Sodium (Protonix) 40 mg DAILY PO 11/08/19 09:00 11/08/19 10:03 Sodium Chloride (Saline Lock Flush) 10 ml ASDIRECTED PRN IV SEE LABEL COMMENTS 11/07/19 15:30 Sodium Chloride (Saline Lock Flush) 10 ml DAILY IV 11/08/19 09:00 11/08/19 09:00 Sucralfate (Carafate) 1 gm BID PO 11/07/19 21:00 11/08/19 10:03 Tramadol HCl (Ultram) 50 mg BID PO 11/07/19 21:00 11/08/19 10:03 Allergies Coded Allergies: No Known Allergies (Unverified , 02/27/18) Airam Rodriguez MD Nov 08, 2019 17:14
[2019-11-08] MEDS: ACETAMINOPH W/CODEINE #3 TAB UD PO PRN (18:13)
[2019-11-08] MEDS: SODIUM CHLORIDE 0.9% INJ 10 ML SYR IV PRN (18:15)
[2019-11-08 18:34] LABS: HEMATOCRIT 26.3 % (42.0-52.0); HEMOGLOBIN 8.7 g/dl (13.5-17.5)
--- NOTE | 2019-11-08 19:21 | CR.PDOC ---
General Date of Consultation: Nov 08, 2019 Referring Provider: Airam Rodriguez MD Primary Care Physician: Temo Kasper MD Attending Physician: Airam Rodriguez MD Consultation REASON FOR CONSULTATION/CHIEF COMPLAINT: Large tumor burden metastatic lower esophageal adenocarcinoma with symptomatically anemia secondary to GI bleed and failure to thrive. HISTORY OF PRESENT ILLNESS: Patient has had multiple cancers in the past. His most recent cancer is his lower esophageal adenocarcinoma diagnosed on EGD biopsy 06/21/2019. Patient was also found to have Relapsed, metastatic poorly differentiated GE junction adenocarcinoma - EGD Bx 09/01/2018. Patient had multiagent chemotherapy with FOLFOX w/ XRT ending October 2018. With progression of disease and symptoms noted patient was started on palliative keytruda. Patient has had a response to this therapy Patient's been having trouble retaining his hemoglobin and has required potentiation support with grade 4 anemia 2 occurrences and short order Patient was admitted for further workup and management Again underwent EGD. Large tumor noted with no active bleeding. No clear obstruction identified. Had a candidate for stent placement MEDICATIONS: Reviewed in EMR and reconciled. ALLERGIES: NKDA. PAST MEDICAL/SURGICAL HISTORY 1977 "lymphoma" - does not know type.- s/p 6 cycles of Adriamycin-containing chemotherapy- further details unclear to patient. 1981 - Colon cancer - S/P surgery with rectum removed per patient, S/P ileostomy. No adjuvant chemotherapy required per patient. 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 Status post inguinal resection Esophageal cancer - diagnosis and treatment history as above. Hypertension Four bouts of small bowel obstruction, one was managed conservatively, the patient believes, and the others he had to have surgery, including the latest one this year. Chronic pelvic pain. Peroneal hernia. A longstanding systolic murmur, LVEF 60% with mild focal hypertrophy of the basal anterior ventricular septum on echo from May 2018 with grade 1 left ventricular diastolic dysfunction and mild aortic valve sclerosis of three - cuspid aortic valve. No aortic regurgitation. Bronchitis or pneumonia in May 2018 with Klebsiella, which was resistant to ampicillin and cephazolin. Hyperlipidemia. Bladder diverticulum posterior wall. Multilevel disk disease, cervical spine with disk extrusions and broad based annular bulges and foramen narrowing and central canal stenosis. FAMILY HISTORY: Father of a heart attack at 56. He also was an alcohol user. Mother had lung cancer. REVIEW OF SYSTEMS General: Significant Fatigue, Malaise Constitutional: Reports: Fatigue, Lethargy Eyes: Denies: Vision change HEENT: Denies: Head Aches, Dysphagia, Sore Throat, Epistaxis Skin: Improvement in acrocyanosis and cold extremities Pulmonary: Reports: Dyspnea improved after transfusion Cardiovascular: Denies: Chest Pain, Palpitations, Orthopnea, Edema Gastrointestinal: Denies: Nausea, Vomiting, Diarrhea Genitourinary: Denies: Dysuria, Frequency, Incontinence Hematologic: Denies: Bruising, Petecchia Endocrine: Reports: Cold Intolerance Musculoskeletal: Reports: Back pain, Muscle stiffness Neurological: Reports: Weakness, Numbness; Denies: Change in Speech Psych: Reports: Depression Physical Examination General Exam: Positive: Mild Distress Eye Exam: Positive: PERRLA, Conjunctiva & lids normal; Negative: Sclera icteric ENT EXAM: Positive: Atraumatic, Mucous membr. moist/pink Neck Exam: Reports: Supple; Denies: JVD, Thyromegaly, Lymphadenopathy Chest Exam: Positive: Clear to auscultation, Normal air movement Heart Exam: Positive: Other (soft systolic murmur appreciated) Abdomen Exam: Positive: Normal bowel sounds; Negative: Tenderness, Hepatospenomegaly, Mass Extremity Exam: Negative: Clubbing, Cyanosis, Edema Skin Exam: Positive: Other skin issue (severe pallor noted with acral cyanosis) Neuro Exam: Positive: Other (generalized weakness noted without focality) Psych Exam: Positive: Oriented x 3 ALLERGIES: Please see below. HOME MEDICATIONS: Please see below. LABORATORY DATA: Please see below. ASSESSMENT/PLAN: 1. Status post grade 4 anemia 2 secondary to active bleeding from metastatic GE junction adenocarcinoma. Patient has a large burden disease at the GE junction area with lymph node metastasis down to the groin as well as supraclavicular and paraesophageal involvement and expected liver involvement. currently on keytruda 2. History of biopsy-proven low-grade lymphoma right inguinal lymph node 3. 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 Remote history of colon cancer with ostomy placement 5. Progressive anemia in setting of stage III chronic kidney disease Plan/recommendations Appreciate gastroenterology's help Unfortunately it does appear this no further treatment to be done at this time Thankfully no active bleeding is noted Patient continues to have a decline in function Trajectory of decline these me to believe that expected survival could be 6 months or less in 6 months from this date We had a kelsey discussion with the family yesterday We will have ongoing discussions Thank you kindly for allowing me to see your patient, it is a privilege and a pleasure Total time care 50 minutes Vital Signs/I&O Vital Signs Date Time Temp Pulse Resp B/P (MAP) Pulse Ox O2 Delivery O2 Flow Rate FiO2 11/08/19 18:43 16 11/08/19 18:00 97.2 104 145/80 (101) 100 Room Air I&O- Last 24 Hours up to 6 AM 11/08/19 05:59 Intake Total 1200 ml Output Total 500 ml Balance 700 ml Laboratory Data Labs 24H Laboratory Tests 2 11/07/19 19:19: Immature Granulocyte % (Auto) 0.6, Neutrophils (%) (Auto) 88.6H, Lymphocytes (%) (Auto) 6.2L, Monocytes (%) (Auto) 4.3, Eosinophils (%) (Auto) 0.2, Basophils (%) (Auto) 0.1, Neutrophils # (Auto) 11.8H, Lymphocytes # (Auto) 0.8L, Monocytes # (Auto) 0.6, Eosinophils # (Auto) 0.0, Basophils # (Auto) 0.0, Nucleated Red Blood Cells % (auto) 0.0 11/08/19 05:26: Immature Granulocyte % (Auto) 0.8, Neutrophils (%) (Auto) 86.8H, Lymphocytes (%) (Auto) 6.5L, Monocytes (%) (Auto) 5.4H, Eosinophils (%) (Auto) 0.3, Basophils (%) (Auto) 0.2, Neutrophils # (Auto) 11.0H, Lymphocytes # (Auto) 0.8L, Monocytes # (Auto) 0.7, Eosinophils # (Auto) 0.0, Basophils # (Auto) 0.0, Nucleated Red Blood Cells % (auto) 0.0, Anion Gap 10, Glomerular Filtration Rate > 60.0, Calcium Level 8.9, Total Bilirubin 1.1#H, Aspartate Amino Transf (AST/SGOT) 31, Alanine Aminotransferase (ALT/SGPT) 20, Alkaline Phosphatase 161H, Total Protein 5.8L, Albumin 2.3L, Albumin/Globulin Ratio 0.7 11/08/19 09:40: Coronavirus (COVID-19)(PCR) NEGATIVE CBC/BMP Laboratory Tests 11/07/19 19:19 11/07/19 23:53 11/08/19 05:26 11/08/19 11:43 11/08/19 18:22 Allergies Coded Allergies: No Known Allergies (Unverified , 02/27/18) Home Medications Scheduled Pantoprazole Sodium (Pantoprazole Sodium) 40 Mg Tablet.dr, 40 MG PO DAILY for 30 Days, #30 (Reported) Sucralfate (Sucralfate) 1 Gm Tablet, 1 GM PO BID, (Reported) Tramadol HCl (Tramadol HCl) 50 Mg Tab, 50 MG PO BID, (Reported) Scheduled PRN Acetaminophen with Codeine (Acetaminophen-Cod #3 Tablet) 1 Tab Tab, 1 TAB PO Q6H PRN for PAIN, (Reported) MERA AMAYA MD Nov 08, 2019 19:20
[2019-11-09] VITALS (9 sets, daily range): BP systolic 110–136; BP diastolic 65–78
[2019-11-09] MEDS: ACETAMINOPH W/CODEINE #3 TAB UD PO PRN ×2 (01:34→14:03)
[2019-11-09 06:11] LABS: BASO % 0.1 % (0.0-1.0); EOS # 0.1 10^3/uL (0.0-0.5); EOS % 0.8 % (0.0-3.0); HEMATOCRIT 23.8 % (42.0-52.0); HEMOGLOBIN 8.1 g/dl (13.5-17.5); LYMPH # 0.8 10^3/uL (1.5-5.0); LYMPH % 6.8 % (24.0-44.0); MEAN CORPUSCULAR HEMOGLOBIN 28.9 pg (27.0-33.0); MONO # 0.7 10^3/uL (0.0-0.8); MONO % 6.8 % (0.0-5.0); NEUTROPHILS # 9.3 10^3/uL (1.5-8.5); NEUTROPHILS % 84.9 % (36.0-66.0); PLATELET COUNT, AUTOMATED 218 10^3/uL (150-450)
[2019-11-09 06:29] LABS: BLOOD UREA NITROGEN 24 MG/DL (7-18); CALCIUM LEVEL 8.5 MG/DL (8.8-10.2); CARBON DIOXIDE LEVEL 29 MEQ/L (21-32); CHLORIDE LEVEL 101 MEQ/L (98-107); CREATININE FOR GFR 0.85 MG/DL (0.70-1.30); GLOMERULAR FILTRATION RATE > 60.0 (>42); GLUCOSE, FASTING 80 MG/DL (70-100); POTASSIUM SERUM 3.4 MEQ/L (3.5-5.1); SODIUM LEVEL 138 MEQ/L (136-145)
[2019-11-09] MEDS: SUCRALFATE 1 GM TAB PO SCH ×2 (08:33→20:01)
[2019-11-09] MEDS: traMADol 50 MG TAB PO SCH ×2 (08:33→20:01)
[2019-11-09] MEDS: PANTOPRAZOLE 40MG TAB (PROTONIX) PO SCH (08:33)
[2019-11-09] MEDS: SODIUM CHLORIDE 0.9% INJ 10 ML SYR IV SCH (08:34)
[2019-11-09] MEDS: LIDOCAINE 5% (LIDODERM) PATCH TD SCH (08:34)
[2019-11-09] MEDS ORDERED: POTASSIUM CHLORIDE 10% LIQ 20 MEQ/15 ML UDC PO ONE (12:00)
--- NOTE | 2019-11-09 13:03 | IPNPDOC ---
Date Seen The patient was seen on 11/09/19. Progress Note Oncology SUBJECTIVE: Patient is receiving additional blood transfusion for hemoglobin 8.1. Appreciate gastroenterology help. Evidence of recent bleeding noted with coffee-ground emesis. Circumferential partially obstructing tumor with ulceration noted OBJECTIVE PHYSICAL EXAMINATION: Alert oriented no acute distress lying in bed. Temporal lobe wasting noted VITAL SIGNS: Please see below. GENERAL: Awake and alert HEENT: No throat CARDIOVASCULAR: Systolic murmur RESPIRATORY: There bilaterally ABDOMINAL: Colostomy intact with gas noted EXTREMITIES: Muscle wasting noted without edema NEUROLOGICAL: Moving all extremities PSYCHOLOGICAL: Normal mood LABORATORY DATA, IMAGING STUDIES, MICROBIOLOGY: Please see below. ASSESSMENT AND PLAN: Rasheed is a 79-year-old gentleman with metastatic ad enocarcinoma GE junction with widespread disease and large tumor burden at the GE junction area. Patient has developed ulceration of his primary tumor with significant bleeding. Plan/recommendations Agree with proton pump inhibition/Carafate Bleeding continues, will ask Dr. Jean to look at case and see if there is any dental comedo from her standpoint regarding embolization/coiling Discussed case in detail with patient's daughter Meghan Denton [phone] today Potential discharge tomorrow if counts are stable Arranged appointment in the office early next week. He was initially scheduled for Tuesday 9:15 this will be changed Thank you kindly for allowing me to participate in the care this jacquie but unfortunate patient 25 minutes on care Patient and I discussed terminal nature of disease and possible survival of this point of 6 months or less VS, I&O, 24H, Fishbone Vital Signs/I&O Vital Signs Date Time Temp Pulse Resp B/P (MAP) Pulse Ox O2 Delivery O2 Flow Rate FiO2 11/09/19 08:33 16 11/09/19 06:00 97.3 88 136/78 (97) 97 Room Air I&O- Last 24 Hours up to 6 AM 11/09/19 06:00 Intake Total 890 ml Output Total 575 ml Balance 315 ml Laboratory Data 24H LABS Laboratory Tests 2 11/09/19 05:21: Immature Granulocyte % (Auto) 0.6, Neutrophils (%) (Auto) 84.9H, Lymphocytes (%) (Auto) 6.8L, Monocytes (%) (Auto) 6.8H, Eosinophils (%) (Auto) 0.8, Basophils (%) (Auto) 0.1, Neutrophils # (Auto) 9.3H, Lymphocytes # (Auto) 0.8L, Monocytes # (Auto) 0.7, Eosinophils # (Auto) 0.1, Basophils # (Auto) 0.0, Nucleated Red Blood Cells % (auto) 0.0, Anion Gap 8, Glomerular Filtration Rate > 60.0, Calcium Level 8.5L CBC/BMP Laboratory Tests 11/08/19 18:22 11/09/19 05:21 MERA AMAYA MD Nov 09, 2019 13:03
[2019-11-09] MEDS: **NOTE PATIENT COMMENT** MISC XX SCH (20:01)
--- NOTE | 2019-11-09 20:10 | IPNPDOC ---
Date Seen The patient was seen on 11/09/19. Progress Note SUBJECTIVE: No acute complaints today, no increased bleeding. H/H lower at 8.1/23 and will transfuse 1 unit of PRBC. If corrects appropriately, discharge in AM. He currently denies chest pain, shortness of breath, nausea, vomiting, abdominal pain. OBJECTIVE: VITAL SIGNS: Please see below PHYSICAL EXAMINATION: CONSTITUTIONAL: Thin appearing male, No acute distress, resting comfortably, AAO x 3 EYES: PERRLA, EOM intact HENT, MOUTH: Normocephalic, atraumatic, moist mucous membranes, temporal wasting NECK: SUPPLE, no JVD, no lymphadenopathy, no carotid bruit CV: Regular rate and rhythm, S1S2 normal, no murmurs/rubs/gallops RESPIRATORY: Clear to auscultation bilaterally, no rales/rhonchi/wheezes GI: BS positive in 4 quadrants, soft, nontender, nondistended, no rebound or guarding, no organomegaly, ileostomy present, multiple abdominal scars : Deferred MUSCULOSKELETAL: Normal ROM. No cyanosis, clubbing, swelling, joint deformity, extremity edema INTEGUMENTARY: Intact, no rashes, no lesions, no erythema NEUROLOGIC: Cranial Nerves II-XII are intact, no focal deficits PSYCHIATRIC: Mood and affect are normal CURRENT MEDICATIONS: Please see below LABORATORY DATA: Please see below IMAGING: No new imaging. ASSESSMENT: 79-year-old male admitted for GI bleed likely secondary to large obstructing malignant tumor of esophagus, known metastatic adenocarcinoma of the gastroesophageal junction. PLAN: 1. Acute GI bleed likely 2/2 to malignant tumor of esophagus, ulcerated. Receiving 1 unit PRBC today for decreased H/H, that will be total of 3 U of PRBC this hospital stay. At this time GI states no effective treatment for intermittent bleeding; however, according to heme/onc notes if bleeding continues they will ask Dr. Jean to look at case and see if there is any dental comedo from her standpoint regarding embolization/coiling. Continue to transfuse PRN, PPI, sucralfate BID for now. Heme/onc spoke with daughter today to update. 2. Metastatic GE junction adenocarcinoma on palliative therapy. Heme/onc (Dr. Noe) consulted and are actively involved. He is to follow up in their office early next week. 3. Severe Protein Calorie malnutrition 2/2 to progressive cancer above. BMI 16, albumin 2.4, bitemporal wasting, wasting of small muscles of hand and feet. Due to progressive cancer cachexia. Nutrition consulted. 4. GI px. PPI 5. DVT px. TEDs, SCDs. AC contraindicated DISPOSITION: Transfusing PRBC today but if remains stable and corrects appropr iately hopeful for discharge tomorrow. Plan/recommendations Agree with proton pump inhibition/Carafate Bleeding continues, will ask Dr. Jean to look at case and see if there is any dental comedo from her standpoint regarding embolization/coiling Discussed case in detail with patient's daughter Meghan Denton [phone] today Potential discharge tomorrow if counts are stable Arranged appointment in the office early next week. He was initially scheduled for Tuesday 9:15 this will be changed Thank you kindly for allowing me to participate in the care this jacquie but unfortunate patient 25 minutes on care Patient and I discussed terminal nature of disease and possible survival of this point of 6 months or less VS, I&O, 24H, Leonardo Vital Signs/I&O Vital Signs Date Time Temp Pulse Resp B/P (MAP) Pulse Ox O2 Delivery O2 Flow Rate FiO2 11/09/19 20:01 16 11/09/19 17:36 98.4 96 116/66 98 Room Air I&O- Last 24 Hours up to 6 AM 11/09/19 05:59 Intake Total 740 ml Output Total 575 ml Balance 165 ml Laboratory Data 24H LABS Laboratory Tests 2 11/09/19 05:21: Immature Granulocyte % (Auto) 0.6, Neutrophils (%) (Auto) 84.9H, Lymphocytes (%) (Auto) 6.8L, Monocytes (%) (Auto) 6.8H, Eosinophils (%) (Auto) 0.8, Basophils (%) (Auto) 0.1, Neutrophils # (Auto) 9.3H, Lymphocytes # (Auto) 0.8L, Monocytes # (Auto) 0.7, Eosinophils # (Auto) 0.1, Basophils # (Auto) 0.0, Nucleated Red Blood Cells % (auto) 0.0, Anion Gap 8, Glomerular Filtration Rate > 60.0, Calcium Level 8.5L CBC/BMP Laboratory Tests 11/09/19 05:21 Current Medications Current Medications Medications (Trade) Dose Ordered Sig/Marisela Route PRN Reason Start Time Stop Time Status Last Admin Dose Admin Acetaminophen/ Codeine Phosphate (Tylenol/Codeine #3 Tablet) 1 ea Q6HP PRN PO PAIN 11/07/19 20:15 11/09/19 14:03 Heparin Sodium (Heparin (Flush)) 500 units ASDIRECTED PRN IV SEE LABEL COMMENTS 11/07/19 15:30 11/08/19 18:14 Heparin Sodium (Heparin (Flush)) 500 units DAILY IV 11/08/19 09:00 11/09/19 08:34 Lidocaine (Lidoderm Patch) 1 patch DAILY TD 11/08/19 03:00 11/08/19 02:51 DC Lidocaine (Lidoderm Patch) 1 patch DAILY TD 11/08/19 03:00 11/08/19 02:59 Non-Formulary Medication ( See Comment Field Below ) REMOVE LIDODERM PATCH DAILY@21 XX 11/08/19 15:00 11/08/19 15:00 Pantoprazole Sodium (Protonix) 40 mg DAILY PO 11/08/19 09:00 11/09/19 08:33 Sodium Chloride (Saline Lock Flush) 10 ml ASDIRECTED PRN IV SEE LABEL COMMENTS 11/07/19 15:30 11/08/19 18:15 Sodium Chloride (Saline Lock Flush) 10 ml DAILY IV 11/08/19 09:00 11/09/19 08:34 Sucralfate (Carafate) 1 gm BID PO 11/07/19 21:00 11/09/19 20:01 Tramadol HCl (Ultram) 50 mg BID PO 11/07/19 21:00 11/09/19 20:01 Allergies Coded Allergies: No Known Allergies (Unverified , 02/27/18) Airam Rodriguez MD Nov 09, 2019 20:10
[2019-11-10] MEDS: ACETAMINOPH W/CODEINE #3 TAB UD PO PRN (01:36)
[2019-11-10 06:00] VITALS: BP 118/74
[2019-11-10 07:21] LABS: BASO % 0.2 % (0.0-1.0); EOS # 0.1 10^3/uL (0.0-0.5); LYMPH # 0.9 10^3/uL (1.5-5.0); LYMPH % 8.4 % (24.0-44.0); MEAN CORPUSCULAR HEMOGLOBIN 28.6 pg (27.0-33.0); MEAN CORPUSCULAR HGB CONC 33.2 g/dl (32.0-36.5); MEAN CORPUSCULAR VOLUME 86.1 fl (80.0-96.0); MONO # 0.8 10^3/uL (0.0-0.8); MONO % 7.7 % (0.0-5.0); NEUTROPHILS # 8.8 10^3/uL (1.5-8.5); NEUTROPHILS % 81.8 % (36.0-66.0); PLATELET COUNT, AUTOMATED 221 10^3/uL (150-450); WHITE BLOOD COUNT 10.8 10^3/uL (4.0-10.0)
[2019-11-10 07:32] LABS: HEMOGLOBIN 10.3 g/dl (13.5-17.5)
[2019-11-10 07:44] LABS: BLOOD UREA NITROGEN 21 MG/DL (7-18); CALCIUM LEVEL 8.6 MG/DL (8.8-10.2); CARBON DIOXIDE LEVEL 27 MEQ/L (21-32); CHLORIDE LEVEL 104 MEQ/L (98-107); CREATININE FOR GFR 0.86 MG/DL (0.70-1.30); GLOMERULAR FILTRATION RATE > 60.0 (>42); GLUCOSE, FASTING 96 MG/DL (70-100); POTASSIUM SERUM 3.9 MEQ/L (3.5-5.1); SODIUM LEVEL 137 MEQ/L (136-145)
[2019-11-10] MEDS: SODIUM CHLORIDE 0.9% INJ 10 ML SYR IV PRN (07:55)
[2019-11-10] MEDS: LIDOCAINE 5% (LIDODERM) PATCH TD SCH (07:55)
[2019-11-10] MEDS: traMADol 50 MG TAB PO SCH (07:57)
[2019-11-10] MEDS: SUCRALFATE 1 GM TAB PO SCH (07:57)
[2019-11-10] MEDS: PANTOPRAZOLE 40MG TAB (PROTONIX) PO SCH (07:57)
[2019-11-10] MEDS: SODIUM CHLORIDE 0.9% INJ 10 ML SYR IV SCH (08:10)
[2019-11-10] MEDS ORDERED: SUCR1TAB56 PO (08:36)
--- NOTE | 2019-11-10 12:20 | DS.PDOC ---
Discharge Summary General Date of Admission Nov 07, 2019 at 17:52 Date of Discharge 11/10/2019 Primary Care Physician: Temo Kasper MD Attending Physician: Airam Rodriguez MD Discharge Summary HISTORY OF PRESENT ILLNESS: Patient is a 79 year old male with multiple cancers in his lifetime currently being treated for metastatic Gastroesophageal junction adenocarcinoma as been having recurrent GIBs with persistent anemia requiring frequent blood transfusions was sent in from Oncology clinic after 2 units of PRBC transfusion for GI evaluation and EGD. Patient was admitted to the hospital for acute anemia from 10/29 to 10/31 and received 2 units of blood transfusion. He reported having broderick over the week end 2 days ago. Denied any abdominal pain, nausea or vo miting. He complained of always feeling cold, fatigued and weak. Came for follow up with oncology today and was found to have again drop in hh from 7.9 to 6.3. He was given 2 units of PRBC at the infusion unit and was admitted for Evaluation of GIB. Suspect bleeding from his lower esophageal tumor. Case discussed with Dr. Chavis . Patient admitted for acute on chronic anemia, acute blood loss anemia, symptomatic and GIB. HOSPITAL COURSE: Patient had EGD done on 11/08/19 which showed large partially obstructive malignant tumor in the lower one third of the esophagus and cardia/fundus of the stomach. No active bleeding was seen. Mass appears ulcerated, hemorrhagic. Stomach full of hematin with no active bleeding currently but appears to have recently bled. GI recommend PPI by mouth indefinitely and sulcralfate, transfuse PRN, soft diet. Heme/Onc (Dr. Noe) discussed case in detail with patient's daughter Meghan Denton [phone]. The terminal nature of disease and possible survival of this point of 6 months or less was also discussed. Patient had mild drop in H/H on 11/09/19 and patient was transfused another unit PRBC (3rd total this admission). Repeat H/H showed improvement to 10.3/. Patient was asymptomatic. On 11/10/19 patient was discharged home without complaints of chest pain, n/v/d, fevers, chills, new bleeding episodes, shortness of breath, lightheadedness or dizziness. REVIEW OF SYSTEMS: Negative except for what is mentioned above PAST MEDICAL HISTORY: Active anemia secondary to GI bleed with symptomatic anemia Relapsed, metastatic poorly differentiated GE junction adenocarcinoma - EGD Bx 09/01/2018 s/p radiation and chemo, currently on Ketruda. 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 Peroneal hernia. A longstanding systolic murmur, LVEF 60% with mild focal hypertrophy of the basal anterior ventricular septum on echo from May 2018 with grade 1 left ventricular diastolic dysfunction and mild aortic valve sclerosis of three - cuspid aortic valve. No aortic regurgitation. h/o Hyperlipidemia. Bladder diverticulum posterior wall. Multilevel disk disease, cervical spine with disk extrusions and broad based annular bulges and foramen narrowing and central canal stenosis. PAST SURGICAL HISTORY: Total Colectomy and end ILEOSTOMY in 1981 GROWTH REMOVED FROM EYE LEFT ORCHIECTOMY RADICAL LEFT 03/01/2018 Exploratory Laparotomy, lysis of adhesion, release of SBO, repairs of enterotomy (05/16/2018) FAMILY HISTORY: Cancer (maternal grandfather with colon cancer) SOCIAL HISTORY: Smoker: Denies Alcohol: Denies Drugs: denies ALLERGIES: Please see below. DISCHARGE MEDICATIONS: Everything other Please see below. PHYSICAL EXAMINATION: CONSTITUTIONAL: Thin appearing male, No acute distress, resting comfortably, AAO x 3 EYES: PERRLA, EOM intact HENT, MOUTH: Normocephalic, atraumatic, moist mucous membranes, temporal wasting NECK: SUPPLE, no JVD, no lymphadenopathy, no carotid bruit CV: Regular rate and rhythm, S1S2 normal, no murmurs/rubs/gallops RESPIRATORY: Clear to auscultation bilaterally, no rales/rhonchi/wheezes GI: BS positive in 4 quadrants, soft, nontender, nondistended, no rebound or guarding, no organomegaly, ileostomy present, multiple abdominal scars : Deferred MUSCULOSKELETAL: Normal ROM. No cyanosis, clubbing, swelling, joint deformity, extremity edema INTEGUMENTARY: Intact, no rashes, no lesions, no erythema NEUROLOGIC: Cranial Nerves II-XII are intact, no focal deficits PSYCHIATRIC: Mood and affect are normal CURRENT MEDICATIONS: Please see below LABORATORY DATA: Please see below IMAGING: EGD: Large partially obstructive malignant tumor in the lower one third of the esophagus and cardia/fundus of the stomach. No active bleeding. Mass appears ulcerated, hemorrhagic. Stomach full of hematin with no active bleeding currently but appears to have recently bled. Recommend PPI by mouth indefinitely. ASSESSMENT: 79-year-old male admitted for GI bleed likely secondary to large obstructing malignant tumor of esophagus, known metastatic adenocarcinoma of the gastroesophageal junction. PLAN: 1. Acute GI bleed likely 2/2 to malignant tumor of esophagus, ulcerated. S/p 3 U PRBC total this admission, H/H this AM 10.09/03. At this time GI states no effective treatment for intermittent bleeding; however, according to heme/onc n chiki if bleeding continues they will ask Dr. Jean to look at case and see if there is any dental comedo from her standpoint regarding embolization/coiling. As no new bleeding has occurred this hospital stay, recommendations are to continue to transfuse PRN, PPI, sucralfate QID for now. Heme/onc spoke with daughter to update and patient to discussed terminal nature of disease and possible survival of this point of 6 months or less. Plan is for patient to come into clinic within the next week to follow up. 2. Metastatic GE junction adenocarcinoma on palliative therapy. Heme/onc (Dr. Noe) consulted and are actively involved. See plan above. 3. Severe Protein Calorie malnutrition 2/2 to progressive cancer above. BMI 16, albumin 2.4, bitemporal wasting, wasting of small muscles of hand and feet. Due to progressive cancer cachexia. Nutrition referral as o/p. 4. GI px. PPI DISPOSITION: Discharging home with f/u with hematology/oncology within the next 1 week. TIME SPENT ON DISCHARGE: Greater than 30 minutes. Vital Signs/I&Os Vital Signs Date Time Temp Pulse Resp B/P (MAP) Pulse Ox O2 Delivery O2 Flow Rate FiO2 11/10/19 07:57 18 Room Air 11/10/19 06:00 98.4 97 118/74 (89) 96 I&O- Last 24 Hours up to 6 AM 11/10/19 06:00 Intake Total 2120 ml Output Total 2625 ml Balance -505 ml Laboratory Data Labs 24H Laboratory Tests 2 11/10/19 06:22: Immature Granulocyte % (Auto) 0.9, Neutrophils (%) (Auto) 81.8H, Lymphocytes (%) (Auto) 8.4L, Monocytes (%) (Auto) 7.7H, Eosinophils (%) (Auto) 1.0, Basophils (%) (Auto) 0.2, Neutrophils # (Auto) 8.8H, Lymphocytes # (Auto) 0.9L, Monocytes # (Auto) 0.8, Eosinophils # (Auto) 0.1, Basophils # (Auto) 0.0, Nucleated Red Blood Cells % (auto) 0.0 11/10/19 06:23: Anion Gap 6L, Glomerular Filtration Rate > 60.0, Calcium Level 8.6L CBC/BMP Laboratory Tests 11/10/19 06:22 11/10/19 06:23 Discharge Medications Scheduled Pantoprazole Sodium (Pantoprazole Sodium) 40 Mg Tablet.dr, 40 MG PO DAILY, (Reported) Sucralfate (Sucralfate) 1 Gm Tablet, 1 GM PO ACHS Tramadol HCl (Tramadol HCl) 50 Mg Tab, 50 MG PO BID, (Reported) Scheduled PRN Acetaminophen with Codeine (Acetaminophen-Cod #3 Tablet) 1 Tab Tab, 1 TAB PO Q6H PRN for PAIN, (Reported) Allergies Coded Allergies: No Known Allergies (Unverified , 02/27/18) Airam Rodriguez MD Nov 10, 2019 12:20
== END 2019-11-10 10:35 | disposition home or self-care (01) | DRG 374 ==
LOC: M INFU 14:57 → M MSPAV 17:52
PROVIDERS: ADMIT Internal Medicine Nephrology; ATTEND Internal Medicine
PROC: 0DJ08ZZ Inspection of Upper Intestinal Tract, Via Natural or Artificial Opening Endoscopic (ICD-10-PCS; principal; 2019-11-07)
PROC: 30233N1 Transfusion of Nonautologous Red Blood Cells into Peripheral Vein, Percutaneous Approach (ICD-10-PCS; 2019-11-07)
DX: C16.0 Malignant neoplasm of cardia (principal); E43 Unspecified severe protein-calorie malnutrition; K92.2 Gastrointestinal hemorrhage, unspecified; D62 Acute posthemorrhagic anemia; R64 Cachexia; C79.9 Secondary malignant neoplasm of unspecified site; Z85.038 Personal history of other malignant neoplasm of large intestine; I10 Essential (primary) hypertension; Z79.899 Other long term (current) drug therapy

== ENCOUNTER 2019-11-23 19:14 | Inpatient (IN) | payer MEDICARE ==
[~2019-11-23] VITALS: Ht 172.7 cm; Wt 49.3 kg
[2019-11-23 20:00] LABS: BASO % 0.3 % (0.0-1.0); EOS % 0.3 % (0.0-3.0); HEMATOCRIT 24.7 % (42.0-52.0); HEMOGLOBIN 7.8 g/dl (13.5-17.5); LYMPH % 8.5 % (24.0-44.0); MEAN CORPUSCULAR HEMOGLOBIN 27.8 pg (27.0-33.0); MEAN CORPUSCULAR HGB CONC 31.6 g/dl (32.0-36.5); MEAN CORPUSCULAR VOLUME 87.9 fl (80.0-96.0); MONO # 0.7 10^3/uL (0.0-0.8); NEUTROPHILS # 9.7 10^3/uL (1.5-8.5); NEUTROPHILS % 84.5 % (36.0-66.0); PLATELET COUNT, AUTOMATED 235 10^3/uL (150-450); RED BLOOD COUNT 2.81 10^6/uL (4.30-6.10); WHITE BLOOD COUNT 11.5 10^3/uL (4.0-10.0)
[2019-11-23 20:21] LABS: INR 1.04; PROTHROMBIN TIME 13.3 SECONDS (11.8-14.0)
[2019-11-23 20:22] LABS: PARTIAL THROMBOPLASTIN TIME 32.9 SECONDS (25.0-38.4)
[2019-11-23 20:33] LABS: BLOOD UREA NITROGEN 26 MG/DL (7-18); CALCIUM LEVEL 9.9 MG/DL (8.8-10.2); CARBON DIOXIDE LEVEL 32 MEQ/L (21-32); CHLORIDE LEVEL 98 MEQ/L (98-107); CK-MB VALUE MASS 1.5 NG/ML (<3.6); CPK CREATINE PHOSPHOKINASE 34 U/L (39-308); CREATININE FOR GFR 1.04 MG/DL (0.70-1.30); GLOMERULAR FILTRATION RATE > 60.0 (>42); GLUCOSE, FASTING 125 MG/DL (70-100); MB/CK RELATIVE INDEX 4.41 (< OR =4); POTASSIUM SERUM 4.4 MEQ/L (3.5-5.1); SODIUM LEVEL 135 MEQ/L (136-145); TROPONIN I < 0.02 NG/ML (< 0.10)
[2019-11-23] MEDS ORDERED: TRIA37.5 PO (22:50)
[2019-11-23] MEDS ORDERED: traMADol 50 MG TAB PO PRN (23:00)
[2019-11-23] MEDS ORDERED: ACETAMINOPH W/CODEINE #3 TAB UD PO PRN (23:00)
--- NOTE | 2019-11-23 23:40 | HPEPDOC ---
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 Patient has had multiple hospitalizations recently for recurrent anemia secondary to bleeding adenocarcinoma in the GE junction, underwent EGD during his previous visit, which showed chronic oozing of blood from the malignant lesions. Patient has become transfusion dependent. He has noticed blood-tinged stool out of the ostomy recently and he also reports increased weakness over the past 2 days. He has no other complaints, denies any shortness of breath, chest pain, nausea, vomiting, abdominal pain or headaches. 10 point review of system is negative so for above PAST MEDICAL HISTORY: 1. Metastatic GE junction adenocarcinoma. 2. Lymphoma. 3. Colon cancer. PAST SURGICAL HISTORY: 1. Colectomy with ileostomy. 2. Left orchiectomy. SOCIAL HISTORY: Previous smoker. Denies alcohol use. Denies drug use FAMILY HISTORY: Negative for heart disease ALLERGIES: Please see below. HOME MEDICATIONS: Please see below. PHYSICAL EXAMINATION: VITAL SIGNS: Please see below. GENERAL: No distress, frail, cachectic HEENT: Normocephalic, atraumatic, dry mucous membranes NECK: Supple CARDIOVASCULAR EXAMINATION: S1, S2, no murmurs RESPIRATORY EXAMINATION: Scattered rhonchi, poor air movement, no wheezing ABDOMINAL EXAMINATION: Soft, nontender, nondistended, positive bowel sounds, ileostomy with small amount of stool present EXTREMITIES: Range of motion intact SKIN: No rash NEUROLOGICAL EXAMINATION: Alert and oriented 3, no focal deficits PSYCHIATRIC EXAMINATION: Calm and cooperative LABORATORY DATA: See below. MICROBIOLOGY: Please see below. ASSESSMENT: 79-year-old male with past medical history of multiple malignancies including metastatic GE junction adenocarcinoma causing chronic intermittent bleeding, multiple recent hospitalizations for transfusions being readmitted for acute on chronic anemia likely secondary to bleeding malignancy requiring blood transfusions. PLAN: 1. Acute on chronic anemia. Secondary to chronically and intermittently bleeding metastatic GE junction ad enocarcinoma, multiple recent hospitalizations for the same reason, ordered to receive 2 units of packed blood cells, otherwise at baseline without complaints, hemodynamically stable, life expectancy is less than 6 months, no need for aggressive workup/management as patient just underwent workup less than 2 weeks ago. Continue PPI and Carafate 2. Multiple malignancies. On palliative Keytruda DVT prophylaxis: SCDs GI prophylaxis: PPI and Carafate Vital Signs Vital Signs Date Time Temp Pulse Resp B/P (MAP) Pulse Ox O2 Delivery O2 Flow Rate FiO2 11/23/19 20:15 96 14 137/74 (95) 98 Room Air 11/23/19 19:14 98.0 Laboratory Data Labs 24H Laboratory Tests 2 11/23/19 19:45: Immature Granulocyte % (Auto) 0.4, Neutrophils (%) (Auto) 84.5H, Lymphocytes (%) (Auto) 8.5L, Monocytes (%) (Auto) 6.0H, Eosinophils (%) (Auto) 0.3, Basophils (%) (Auto) 0.3, Neutrophils # (Auto) 9.7H, Lymphocytes # (Auto) 1.0L, Monocytes # (Auto) 0.7, Eosinophils # (Auto) 0.0, Basophils # (Auto) 0.0, Nucleated Red Blood Cells % (auto) 0.0, Prothrombin Time 13.3, Prothromb Time International Ratio 1.04, Activated Partial Thromboplast Time 32.9, Anion Gap 5L, Glomerular Filtration Rate > 60.0, Calcium Level 9.9, Total Creatine Kinase 34L, Creatine Kinase MB 1.5, Creatine Kinase MB Relative Index 4.41H, Troponin I < 0.02 CBC/BMP Laboratory Tests 11/23/19 19:45 Home Medications Scheduled Pantoprazole Sodium (Pantoprazole Sodium) 40 Mg Tablet.dr, 40 MG PO DAILY Triamterene/Hydrochlorothiazid (Triamterene-Hctz 37.5-25 mg Tb) 1 Each Tablet, 1 TAB PO DAILY Scheduled PRN Acetaminophen with Codeine (Acetaminophen-Cod #3 Tablet) 1 Tab Tab, 2 TAB PO Q6H PRN for PAIN Tramadol HCl (Tramadol HCl) 50 Mg Tab, 50 MG PO BID PRN for PAIN MAY TAKE 100MG PRN Allergies Coded Allergies: No Known Allergies (Unverified , 02/27/18) A-FIB/CHADSVASC A-FIB History Current/History of A-Fib/PAF?: No YANIV CONNORS MD Nov 23, 2019 23:40
[2019-11-24] VITALS (9 sets, daily range): BP systolic 108–146; BP diastolic 63–76
[2019-11-24] MEDS: SUCRALFATE SUSP 1GM/10ML UD PO SCH ×3 (01:30→11:43)
[2019-11-24 06:40] LABS: HEMATOCRIT 23.8 % (42.0-52.0); HEMOGLOBIN 7.7 g/dl (13.5-17.5); MEAN CORPUSCULAR HEMOGLOBIN 28.4 pg (27.0-33.0); MEAN CORPUSCULAR HGB CONC 32.4 g/dl (32.0-36.5); MEAN CORPUSCULAR VOLUME 87.8 fl (80.0-96.0); PLATELET COUNT, AUTOMATED 180 10^3/uL (150-450); RED BLOOD COUNT 2.71 10^6/uL (4.30-6.10); WHITE BLOOD COUNT 8.4 10^3/uL (4.0-10.0)
[2019-11-24 07:02] LABS: ALBUMIN 2.3 GM/DL (3.2-5.2); ALT/SGPT 21 U/L (12-78); BILIRUBIN,TOTAL 0.6 MG/DL (0.2-1.0); BLOOD UREA NITROGEN 30 MG/DL (7-18); CALCIUM LEVEL 9.3 MG/DL (8.8-10.2); CARBON DIOXIDE LEVEL 30 MEQ/L (21-32); CHLORIDE LEVEL 99 MEQ/L (98-107); CREATININE FOR GFR 0.91 MG/DL (0.70-1.30); GLOMERULAR FILTRATION RATE > 60.0 (>42); GLUCOSE, FASTING 83 MG/DL (70-100); MAGNESIUM LEVEL 1.5 MG/DL (1.8-2.4); POTASSIUM SERUM 4.7 MEQ/L (3.5-5.1); SODIUM LEVEL 134 MEQ/L (136-145); TOTAL PROTEIN 5.3 GM/DL (6.4-8.2)
--- NOTE | 2019-11-24 08:11 | ECGEPIP ---
[facility] - ED Test Date: 2019-11-23 Pat Name: MAYELIN ROMAN Department: Room: [place] [address] Gender: Male Manager Production: loretta : [id number] Requested By: PRATEEK Dinh Order Number: [id number] Reading MD: Ros Bajwa Measurements Intervals [place] Rate: 100 P: 65 ID: [id number] QRS: 28 QRSD: 90 T: 39 QT: 355 QTc: 458 Interpretive Statements SINUS TACHYCARDIA ABNORMAL RHYTHM ECG RIGHT VENTRICULAR CONDUCTION DELAY Electronically Signed on 11-24-2019 8:10:56 EDT by oRs Bajwa
[2019-11-24] MEDS ORDERED: DYAZIDE 37.5/25 CAP (TRIAM/HCTZ) PO SCH (09:00)
[2019-11-24] MEDS ORDERED: PANTOPRAZOLE 40MG TAB (PROTONIX) PO SCH (09:00)
[2019-11-24] MEDS ORDERED: MAG SULF 1GM/100ML (MAG RUN) 1 GM in IV 1 EA IV ONE (09:00)
[2019-11-24 10:57] LABS: HEMATOCRIT 28.6 % (42.0-52.0); HEMOGLOBIN 9.3 g/dl (13.5-17.5); MEAN CORPUSCULAR HEMOGLOBIN 28.6 pg (27.0-33.0); MEAN CORPUSCULAR HGB CONC 32.5 g/dl (32.0-36.5); PLATELET COUNT, AUTOMATED 152 10^3/uL (150-450); RED BLOOD COUNT 3.25 10^6/uL (4.30-6.10); WHITE BLOOD COUNT 8.8 10^3/uL (4.0-10.0)
[2019-11-24] MEDS ORDERED: SUCR1ORA PO (12:44)
--- NOTE | 2019-11-24 12:46 | DS.PDOC ---
Discharge Summary General Date of Admission Nov 23, 2019 at 22:58 Date of Discharge 11/24/2019 Discharge Summary PROCEDURES PERFORMED DURING STAY: [None]. 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 Patient has had multiple hospitalizations recently for recurrent anemia secondary to bleeding adenocarcinoma in the GE junction, underwent EGD during his previous visit, which showed chronic oozing of blood from the malignant lesions. Patient has become transfusion dependent. He has noticed blood-tinged stool out of the ostomy recently and he also reports increased weakness over the past 2 days. On prior admission. Patient had an EGD completed on 11/07, which had shown a large partially obstructed malignant tumor in the lower 1 year to the esophagus and cardia/fundus of the stomach. No active bleeding was noted, however mass appeare d ulcerated and hemorrhagic stomach was full of hematin with no active bleeding. Recommending continuing PPI and Carafate. Oncology had reported that patient's life expectancy is less than 6 months; current care is for palliation only. Upon arrival to emergency room, patient was found to have a hemoglobin of 7.8, and was admitted to hospitalist service for further evaluation and treatment. Patient has received 2 units of PRBC has reported significant improvement of his symptoms. His hemoglobin had returned closer to his baseline at 9.3. Patient is hemodynamically stable and afebrile. He is at his baseline level of function. I discussed with the patient goals of care and after receiving appropriate transfusions, patient is ready to be discharged home. Her has been instructed to follow-up with his primary care provider and oncology within the next 7 days. DISCHARGE MEDICATIONS: Please see below. ALLERGIES: Please see below. PHYSICAL EXAMINATION ON DISCHARGE: Vitals (See below) General: Lying in bed, no acute distress, comfortable, AAOx3 HEENT: NC, AT CVS: RRR, +S1S2 Lungs: Fair air entry b/l, -w/r/r Abdomen: Soft, ND, NT Extremities: - Edema, - Calf tenderness LABORATORY DATA: Please see below. PROGNOSIS: Guarded ACTIVITY: [As tolerated]. DISCHARGE PLAN: Follow up with PCP and Oncology within 7 days Remain compliant with treatment plan and medications Return to the ER if you experience any problems DISPOSITION: Home DISCHARGE CONDITION: [Stable]. CODE STATUS: DNR / DNI TIME SPENT ON DISCHARGE: 35 minutes. Vital Signs/I&Os Vital Signs Date Time Temp Pulse Resp B/P (MAP) Pulse Ox O2 Delivery O2 Flow Rate FiO2 11/24/19 08:10 96.5 89 20 126/70 Room Air 11/24/19 07:36 98 I&O- Last 24 Hours up to 6 AM 11/24/19 06:00 Intake Total 355 ml Output Total 0 ml Balance 355 ml Laboratory Data Labs 24H Laboratory Tests 2 11/23/19 19:45: Immature Granulocyte % (Auto) 0.4, Neutrophils (%) (Auto) 84.5H, Lymphocytes (%) (Auto) 8.5L, Monocytes (%) (Auto) 6.0H, Eosinophils (%) (Auto) 0.3, Basophils (%) (Auto) 0.3, Neutrophils # (Auto) 9.7H, Lymphocytes # (Auto) 1.0L, Monocytes # (Auto) 0.7, Eosinophils # (Auto) 0.0, Basophils # (Auto) 0.0, Nucleated Red Blood Cells % (auto) 0.0, Prothrombin Time 13.3, Prothromb Time International Ratio 1.04, Activated Partial Thromboplast Time 32.9, Anion Gap 5L, Glomerular Filtration Rate > 60.0, Calcium Level 9.9, Total Creatine Kinase 34L, Creatine Kinase MB 1.5, Creatine Kinase MB Relative Index 4.41H, Troponin I < 0.02 11/24/19 05:55: Nucleated Red Blood Cells % (auto) 0.0, Anion Gap 5L, Glomerular Filtration Rate > 60.0, Calcium Level 9.3, Magnesium Level 1.5L, Total Bilirubin 0.6, Aspartate Amino Transf (AST/SGOT) 46H, Alanine Aminotransferase (ALT/SGPT) 21, Alkaline Phosphatase 169H, Total Protein 5.3L, Albumin 2.3L, Albumin/Globulin Ratio 0.8 11/24/19 10:38: Nucleated Red Blood Cells % (auto) 0.0 CBC/BMP Laboratory Tests 11/23/19 19:45 11/24/19 05:55 11/24/19 10:38 Discharge Medications Scheduled Pantoprazole Sodium (Pantoprazole Sodium) 40 Mg Tablet.dr, 40 MG PO DAILY, (Reported) Triamterene/Hydrochlorothiazid (Triamterene-Hctz 37.5-25 mg Tb) 1 Each Tablet, 1 TAB PO DAILY, (Reported) Scheduled PRN Acetaminophen with Codeine (Acetaminophen-Cod #3 Tablet) 1 Tab Tab, 2 TAB PO Q6H PRN for PAIN, (Reported) Tramadol HCl (Tramadol HCl) 50 Mg Tab, 50 MG PO BID PRN for PAIN, (Reported) MAY TAKE 100MG PRN Allergies Coded Allergies: No Known Allergies (Unverified , 02/27/18) MANE BRAY MD Nov 24, 2019 12:46
== END 2019-11-24 15:06 | disposition home or self-care (01) | DRG 375 ==
LOC: M ED 19:14 → M ED INP 22:58 → ENRESERVDT 23:41 → ENRESERVTM 23:41 → M MSPAV 11-24 00:12
PROVIDERS: ADMIT Internal Medicine; ATTEND Internal Medicine
PROC: 30233N1 Transfusion of Nonautologous Red Blood Cells into Peripheral Vein, Percutaneous Approach (ICD-10-PCS; principal; 2019-11-24)
DX: C16.0 Malignant neoplasm of cardia (principal); C79.9 Secondary malignant neoplasm of unspecified site; D62 Acute posthemorrhagic anemia; Z85.038 Personal history of other malignant neoplasm of large intestine; Z93.3 Colostomy status; Z87.891 Personal history of nicotine dependence

== ENCOUNTER 2019-12-12 09:43 | Outpatient (CLI) | payer MEDICARE ==
[~2019-12-12] VITALS: Ht 172.7 cm; Wt 45.6 kg
[~2019-12-12 09:43] MED LIST changes: +ACETAMINOPHEN TAB 650MG DOSE (2X325MG) PO SCH; +AMLO1TAB24 PO; -AMLO5TAB6 PO; +PANT40TA29 PO; -PANT40TA3 PO; +SODIUM CHLORIDE 0.9% INJ 10 ML SYR IV SCH; +SUCR1ORA PO; +TRIA37.5 PO; +diphenhydrAMINE 25MG CAP PO SCH
[2019-12-12 09:50] VITALS: BP 118/76
[2019-12-12 11:00] VITALS: BP 111/64
[2019-12-12 12:30] VITALS: BP 113/63
[2019-12-12 13:05] VITALS: BP 125/60
[2019-12-12] MEDS ORDERED: SODIUM CHLORIDE 0.9% INJ 10 ML SYR IV PRN (13:30)
[2019-12-12 14:20] VITALS: BP 121/58
[2019-12-12 14:45] VITALS: BP 129/69
== END 2019-12-12 14:45 | disposition home or self-care (01) ==
LOC: M INFU 09:43
PROVIDERS: ATTEND Internal Medicine Hematology & Oncology
DX: K92.2 Gastrointestinal hemorrhage, unspecified (principal)
CPT/HCPCS: 36430; 36591; 80053; 85025; 86850; 86900; 86901; 86920; G0463; J1642; P9016

== ENCOUNTER 2019-12-20 08:33 | Outpatient (CLI) | payer MEDICARE ==
[~2019-12-20] VITALS: Ht 172.7 cm; Wt 46.0 kg
[~2019-12-20 08:33] MED LIST changes: -SODIUM CHLORIDE 0.9% INJ 10 ML SYR IV SCH
[2019-12-20 09:30] VITALS: BP 119/64
[2019-12-20 09:35] VITALS: BP 119/64
[2019-12-20] MEDS ORDERED: SODIUM CHLORIDE 0.9% INJ 10 ML SYR IV PRN (09:45)
[2019-12-20 09:47] VITALS: BP 114/61
[2019-12-20 10:48] VITALS: BP 120/67
[2019-12-20 11:22] VITALS: BP 127/63
[2019-12-20 11:24] VITALS: BP 127/63
[2019-12-21] MEDS ORDERED: SODIUM CHLORIDE 0.9% INJ 10 ML SYR IV SCH (09:00)
== END 2019-12-20 11:50 | disposition home or self-care (01) ==
LOC: M INFU 08:33
PROVIDERS: ATTEND Internal Medicine Medical Oncology
DX: D64.9 Anemia, unspecified (principal)
CPT/HCPCS: 36430; J1642; P9016

== ENCOUNTER 2019-12-22 13:21 | Emergency (ER) | payer MEDICARE ==
[~2019-12-22] VITALS: Ht 175.3 cm; Wt 45.5 kg
[~2019-12-22 13:21] MED LIST changes: -ACETAMINOPHEN TAB 650MG DOSE (2X325MG) PO SCH; -diphenhydrAMINE 25MG CAP PO SCH
[2019-12-22] MEDS ORDERED: NS 1,000 ML IV ONE (14:30)
[2019-12-22] MEDS ORDERED: ONDANSETRON 4MG/2ML VIAL IV ONE (14:30)
[2019-12-22 15:30] LABS: HEMATOCRIT 30.6 % (42.0-52.0); HEMOGLOBIN 10.1 g/dl (13.5-17.5); MEAN CORPUSCULAR HEMOGLOBIN 28.5 pg (27.0-33.0); MEAN CORPUSCULAR VOLUME 86.4 fl (80.0-96.0); PLATELET COUNT, AUTOMATED 177 10^3/uL (150-450); RED BLOOD COUNT 3.54 10^6/uL (4.30-6.10); WHITE BLOOD COUNT 13.8 10^3/uL (4.0-10.0)
[2019-12-22 15:56] LABS: LYMPHOCYTES 6 % (16-44); MONOCYTES 4 % (0-5); NEUTROPHILS 89 % (28-66); PLATELET ESTIMATE NORMAL (NORMAL)
[2019-12-22 16:02] LABS: ALBUMIN 1.4 GM/DL (3.2-5.2); ALT/SGPT 17 U/L (12-78); BILIRUBIN,DIRECT 0.1 MG/DL (0.0-0.2); BILIRUBIN,TOTAL 0.4 MG/DL (0.2-1.0); BLOOD UREA NITROGEN 21 MG/DL (7-18); CALCIUM LEVEL 6.5 MG/DL (8.8-10.2); CARBON DIOXIDE LEVEL 20 MEQ/L (21-32); CHLORIDE LEVEL 118 MEQ/L (98-107); CREATININE FOR GFR 0.47 MG/DL (0.70-1.30); GLOMERULAR FILTRATION RATE > 60.0 (>42); GLUCOSE, FASTING 90 MG/DL (70-100); LIPASE 80 U/L (73-393); SODIUM LEVEL 145 MEQ/L (136-145); TOTAL PROTEIN 4.2 GM/DL (6.4-8.2)
[2019-12-22] MEDS ORDERED: POTASSIUM CHLORIDE 10% LIQ 20 MEQ/15 ML UDC PO ONE (16:45)
[2019-12-22] MEDS ORDERED: POTASSIUM CHLORIDE INJ 10 MEQ in D5W/0.2% SODIUM CHLORIDE 1,000 ML IV SCH (16:45)
[2019-12-22] MEDS ORDERED: KCL 10MEQ/100ML SWI (KRUN) SINGLE DOSE IV ONE ×2 (17:00)
[2019-12-22] MEDS ORDERED: FAMOTIDINE INJ 20MG/2ML VIAL (S0028 PER 1) IVP ONE (17:45)
[2019-12-22] MEDS ORDERED: PROMETHAZINE INJ 25 MG/ML VIAL (J2550) IV ONE (17:45)
[2019-12-22] MEDS ORDERED: PROM25TA12 PO (19:25)
[2019-12-22] MEDS ORDERED: POTA20EL PO (19:25)
[2019-12-22 19:41] VITALS: BP 150/90
--- NOTE | 2019-12-23 08:31 | REP ---
REASON: Patient has a known mass. COMPARISON: 10/02/2019 The lack of intravenous contrast and oral bowel preparatory contrast markedly decreases the sensitivity of the exam. There is no significant change in appearance of the right lung base. The patchy opacity seen previously in the left lung base on the 10/02/[address] has increased, and the left pleural effusion has increased slightly. Markedly limited evaluation of the solid intra-abdominal organs shows no gross changes; however, this examination is markedly limited. There is a small amount of ascites, which has developed since the last exam. Due to the extreme exam limitations, I cannot rule out a tiny amount of free air versus a tiny amount of air in collapsed bowel. The patient has an ostomy, which is unchanged. In the left hemipelvis, there is an oval shaped 4.7 cm sized collection of fluid, which extends from the left hemipelvis into the region of the left paracolic gutter. This represents a change from the prior exam. It might represent a loculated amount of ascites. There is a similar findings in the right paracolic gutter. There is no change in the osseous structures. IMPRESSION: 1. The examination is markedly limited. Ascites has developed since the last exam. Tiny amount of free air cannot be ruled out on this markedly limited exam, although I see no gross free air. The ostomy site is unchanged. There is a mass in the left retroperitoneum, which does not appear to be significantly changed; however, unopacified bowel abuts this and makes delineation between the bowel and the mass impossible. 2. Lung base findings as described above. 3. Small pericardial effusion, unchanged. 4. Other findings and limitations. Electronically Signed by Channing Ruggiero DO 12/23/2019 08:57 A
== END 2019-12-22 20:46 | disposition home or self-care (01) ==
LOC: M ED 13:21
DX: E87.6 Hypokalemia (principal); R11.2 Nausea with vomiting, unspecified; I10 Essential (primary) hypertension; Z79.899 Other long term (current) drug therapy; Z85.038 Personal history of other malignant neoplasm of large intestine; Z87.891 Personal history of nicotine dependence
CPT/HCPCS: 74176; 80048; 80076; 83690; 85025; 96374; 96375; 99284; J2405